=== PATIENT | male | born 1965 | race Caucasian/White ===

== ENCOUNTER 2021-01-03 14:43 | Inpatient (IN) | payer MEDICARE ==
[~2021-01-03] VITALS: Ht 190.5 cm; Wt 125.9 kg
[~2021-01-03 14:43] MED LIST: ALBU1.25 IH; ALBU2.5V8 IH; ALBU2.5V8 INH; ALBU8.5H6 IH; ASPI325T8 PO; Albuterol Sulfate NEB; CETI10TA74 PO; Erythromycin Base PO; FLUT1DIS5 IH; GLIM4TAB8 PO; LISI-517 PO; METF500T25 PO; PANT40TA77 PO; POTA10TA12 PO; PRAV40TA2 PO; PRED20TA PO; TIOT18CA IH; TORS20TA2 PO
[2021-01-03 15:14] LABS: BASO % 1 % (0-3); EOS # 0.1 x10^3/uL (0.0-0.7); EOS % 1 % (0-3); HEMATOCRIT 52.4 % (39.0-53.0); LYMPH # 1.3 x10^3/uL (1.0-4.8); LYMPH % 18 % (24-48); MEAN CORPUSCULAR HEMOGLOBIN 31 pg (25-35); MEAN CORPUSCULAR HGB CONC 32 g/dL (31-37); MEAN CORPUSCULAR VOLUME 96 fL (79-100); MONO # 0.7 x10^3/uL (0.0-1.1); MONO % 9 % (0-9); NEUT # 5.3 x10^3/uL (1.8-7.7); NEUT % 72 % (31-73); PLATELET COUNT 207 x10^3/uL (140-400); RED BLOOD COUNT 5.49 x10^6/uL (4.30-5.70); RED CELL DISTRIBUTION WIDTH 15.4 % (11.5-14.5); WHITE BLOOD COUNT 7.4 x10^3/uL (4.0-11.0)
--- NOTE | 2021-01-03 15:14 | PHYS DOC ---
Past Medical History Past Medical History: CHF, COPD, Diabetes-Type II Additional Past Medical Histor: obesity Past Surgical History: Cholecystectomy, Other Additional Past Surgical Histo: vasectomy Smoking Status: Current Every Day Smoker Alcohol Use: None Drug Use: None General Adult EDM: Chief Complaint: SHORTNESS OF BREATH HPI: HPI: 55 year old male with pmh of COPD and CHF presents with reports of progressive dyspnea x 2 months. Reports worse over the last few days. Reports he has had to increase his supplemental O2 requirement from 6L NC to 8L NC. Reports he also has noticed an increase in his abdominal girth. Denies N/V/D. Reports chronic cough. Denies fever/chills. Denies trauma. Denies known sick contacts or known exposure to COVID-19. Review of Systems: Review of Systems: Constitutional: Denies fever or chills Eyes: Denies redness or eye pain HENT: Denies nasal congestion or sore throat Respiratory: Reports cough and shortness of breath Cardiovascular: Denies chest pain or palpitations GI: Reports abdominal pain; denies nausea or vomiting : Denies dysuria or hematuria Musculoskeletal: Denies back pain or joint pain Integument: Denies rash or skin lesions Neurologic: Denies headache, focal weakness or sensory changes Complete systems were reviewed and found to be within normal limits, except as documented in this note. Allergies: Allergies: Allergies Coded Allergies Type Severity Reaction Last Updated Verified No Known Drug Allergies 02/15/15 No Physical Exam: PE: Constitutional: Well developed, obese, no acute distress, non-toxic appearance HENT: Normocephalic, atraumatic Eyes: Conjunctiva normal, no discharge Neck: Normal range of motion, no tenderness, supple Lungs & Thorax: Moderate respiratory distress, equal chest rise and fall, diminished at bases Abdomen: Soft, no tenderness, obese, moderate distention Skin: Warm, dry, no erythema, no rash Back: No tenderness, no CVA tenderness Extremities: No tenderness, ROM intact, no edema Neurologic: Alert and oriented X 3, no focal deficits noted Psychologic: Affect normal, judgment normal EKG: EKG: @1505 Sinus tachycardia with baseline artifact at 117bpm, NO ST elevation, QRS 104ms, QT/QTc 298/420ms Radiology/Procedures: Radiology/Procedures: PROCEDURE: CT ANGIO CHEST W ABD PEL W/ CTA CHEST_ABDOMEN_AND PELVIS Clinical Indication: Dyspnea, hypoxia, pain COMPARISON: CTA chest 06/14/2017 TECHNIQUE: Multiple contiguous axial images were obtained throughout the chest, abdomen, and pelvis with the use of IV contrast. Axial images were reformatted into coronal and sagittal planes. 100 mL Omnipaque 350 was administered. One or more of the following dose reduction techniques were utilized: Automated exposure control (AEC), Adjustment of mA and/or kV according to patient size, Use of iterative reconstruction technique such as ASiR, CT scan done according to ALARA and image gently/image wisely. Findings: The thyroid is symmetric. Mediastinal and hilar lymphadenopathy has mildly increased from 2017, for example left para-aortic lymph node measuring 1.6 cm short axis previously measured 1.2 cm (series 4 image 52) and left hilar lymph node measuring 1.6 cm previously measured 1.3 cm (image 80). The thoracic aorta diameter is normal. No evidence of pulmonary thromboembolic disease Dilated pulmonary trunk measures 40 mm, which can be seen with pulmonary hypertension. The cardiac size is normal. Coronary artery atherosclerotic disease. Aortic valve leaflet calcification. There is no pericardial effusion. The central airways are patent. Bilateral ill-defined ground glass opacities, similar to the prior exam. No pleural effusion is observed. There is no pneumothorax. The liver, spleen, pancreas, and adrenal glands are unremarkable. Cholecystec venice. No hydronephrosis or opaque urinary calculi. There is no significant mesenteric or retroperitoneal adenopathy identified. Visualized portions of the bowel are grossly unremarkable. Moderate aortoiliac atherosclerotic disease Bladder is unremarkable. There is no significant pelvic ascites. No significant iliac or inguinal adenopathy is identified. Degenerative changes of the spine IMPRESSION: 1. No evidence of pulmonary thromboembolic disease. 2. Bilateral ill-defined groundglass opacities, which could relate to pulmonary edema or infection in the acute setting. Of note, lung parenchyma had a similar appearance on exam of 2017 and other considerations such as small airways disease or pulmonary hypertension could have a similar appearance. 3. Dilated pulmonary trunk, which can be seen with pulmonary hypertension. 4. Mediastinal and hilar lymphadenopathy has mildly increased since exam of 2017. Electronically signed by: Grant Saunders MD (01/03/2021 5:06 PM) [facility] Course & Med Decision Making: Course & Med Decision Making Pertinent Labs and Imaging studies reviewed. (See chart for details) Patient with pmh of CHF and COPD presents with history of progressive SOA and increased supplemental O2 from baseline requirement. Patient reports he typically wears 6L NC but has increased to 8L NC. Patient hypoxic with increased work of breathing. Increased high flow O2 provided. EKG tachycardic. Labs obtained and posted to chart. Troponin WNL. BNP stable. WBC and lactic acid stable. D-dimer elevated. Patient reports some abdominal distention and discomfort. CTA chest and CT abd/pelvis obtained with chronic lung changes noted. ABG with findings of increased CO2 retention. BIPAP therefore placed. Empiric antibiotic provided. Cannot exclude COVID. COVID testing pending. Patient requiring admission for further evaluation and treatment. Discussed with Dr. Malloy (hospitalist) who is in agreement with admission. Discussed findings and plan with patient, who acknowledges understanding and agreement. COVID-19 CRITERIA: The patient was evaluated during the global COVID-19 pandemic, and that diagnosis was suspected/considered upon their initial presentation. Their evaluation, treatment and testing was consistent with current guidelines for patients who present with complaints or symptoms that may be related to COVID-19. Draghaja Disclaimer: Draghaja Disclaimer: This electronic medical record was generated, in whole or in part, using a voice recognition dictation system. Departure Departure Impression: Primary Impression: Acute on chronic respiratory failure Qualified Codes: J96.21 - Acute and chronic respiratory failure with hypoxia Additional Impressions: COPD exacerbation Suspected 2019 novel coronavirus infection Disposition: 09 ADMITTED INPT THIS HOSP Admitting Physician: GISELLA Saldana) Condition: GUARDED Referrals: Génesis CESAR MD (PCP) COVID-19 Assessment: COVID-19 Patient Risks: Age 65 or older: No Sign of co-morbidity: Yes Exp to person + for COVID: No Exp to PUI: No Travel from affected area: No Lower respiratory symptoms: Yes Fever: No Other: Yes PPE Use: Full PPE with N95 mask or PAPR: Yes Critical Care Time Critical care time was 30 minutes which includes time at bedside, spent in discussion of patient's care with specialists and/or family members, with interpretation of laboratory and/or radiological studies and is exclusive of procedures. AGUSTO RIVERO DO Jan 03, 2021 15:14
[2021-01-03 15:31] LABS: CALCIUM 8.8 mg/dL (8.5-10.1); CREATININE 0.8 mg/dL (0.7-1.3); GFR 100.7; POTASSIUM 4.9 mmol/L (3.5-5.1)
[2021-01-03 15:44] LABS: ALBUMIN 3.3 g/dL (3.4-5.0); MAGNESIUM 2.1 mg/dL (1.8-2.4); TOTAL BILIRUBIN 0.9 mg/dL (0.2-1.0); TOTAL PROTEIN 6.7 g/dL (6.4-8.2)
[2021-01-03 15:46] LABS: CREATINE KINASE 74 U/L (39-308)
[2021-01-03 16:29] LABS: BASE EXCESS COOX 7 mmol/L (-3-3); HCO3 COOX 36 mmol/L (21-28); METHEMOGLOBIN 0.3 % (0.0-1.9); OXYHEMOGLOBIN 90.3 %; PO2 COOX 90 mmHg (75-108); SAT O2 COOX 96 % (92-99)
[2021-01-03] MEDS ORDERED: IOHEXOL 300 MG/ML 100ML VIAL. IV ONE (16:30)
[2021-01-03] MEDS ORDERED: IOHEXOL 350 MG/ML 100 ML VIAL. ONE (16:30)
[2021-01-03] MEDS ORDERED: CONTRAST GIVEN. MC PRN (16:30)
[2021-01-03 16:31] LABS: PCO2 COOX 68 mmHg (35-46)
[2021-01-03] MEDS ORDERED: DEXAMETHASONE SOD PHOS 4 MG/ML VIAL IVP ONE (16:45)
--- NOTE | 2021-01-03 17:09 | RAD ---
CTA CHEST_ABDOMEN_AND PELVIS Clinical Indication: Dyspnea, hypoxia, pain COMPARISON: CTA chest 06/14/2017 TECHNIQUE: Multiple contiguous axial images were obtained throughout the chest, abdomen, and pelvis with the use of IV contrast. Axial images were reformatted into coronal and sagittal planes. 100 mL Omnipaque 350 was administered. One or more of the following dose reduction techniques were utilized: Automated ex posure control (AEC), Adjustment of mA and/or kV according to patient size, Use of iterative reconstr uction technique such as ASiR, CT scan done according to ALARA and image gently/image wisely. Findings: The thyroid is symmetric. Mediastinal and hilar lymphadenopathy has mildly increased from 2017, for e xample left para-aortic lymph node measuring 1.6 cm short axis previously measured 1.2 cm (series 4 i mage 52) and left hilar lymph node measuring 1.6 cm previously measured 1.3 cm (image 80). The thoracic aorta diameter is normal. No evidence of pulmonary thromboembolic disease Dilated pulmon mohinder trunk measures 40 mm, which can be seen with pulmonary hypertension. The cardiac size is normal. Coronary artery atherosclerotic disease. Aortic valve leaflet calcification. There is no pericardial effusion. The central airways are patent. Bilateral ill-defined ground glass opacities, similar to the prior exam. No pleural effusion is obser [place]. There is no pneumothorax. The liver, spleen, pancreas, and adrenal glands are unremarkable. Cholecystectomy. No hydronephrosis or opaque urinary calculi. There is no significant mesenteric or retroperitoneal adenopathy identif ied. Visualized portions of the bowel are grossly unremarkable. Moderate aortoiliac atherosclerotic disease Bladder is unremarkable. There is no significant pelvic ascites. No significant iliac or inguinal a denopathy is identified. Degenerative changes of the spine IMPRESSION: 1. No evidence of pulmonary thromboembolic disease. 2. Bilateral ill-defined groundglass opacities, which could relate to pulmonary edema or infection in the acute setting. Of note, lung parenchyma had a similar appearance on exam of 2017 and other consi derations such as small airways disease or pulmonary hypertension could have a similar appearance. 3. Dilated pulmonary trunk, which can be seen with pulmonary hypertension. 4. Mediastinal and hilar lymphadenopathy has mildly increased since exam of 2017. Electronically signed by: Grant Saunders MD (01/03/2021 5:06 PM) [facility]
[2021-01-03 17:10] LABS: INFLUENZA A PATIENT NEGATIVE (NEGATIVE); INFLUENZA B PATIENT NEGATIVE (NEGATIVE)
[2021-01-03] MEDS ORDERED: CALCIUM CARBONATE 500 MG TAB.CHEW PO PRN (17:30)
[2021-01-03] MEDS ORDERED: MORPHINE SULFATE 2 MG/ML VIAL. IV PRN (17:30)
[2021-01-03] MEDS ORDERED: PROCHLORPERAZINE 25 MG SUPP.RECT. PR PRN (17:30)
[2021-01-03] MEDS ORDERED: LACTULOSE 20 GM/30 ML SOLUTION. PO PRN (17:30)
[2021-01-03] MEDS ORDERED: MAG HYDROX/ALUMINUM HYD/SIMETH 30 ML ORAL.SUSP PO PRN (17:30)
[2021-01-03] MEDS ORDERED: ACETAMINOPHEN 325 MG TABLET. PO PRN (17:30)
[2021-01-03] MEDS ORDERED: AZITHRMYCN 500MG IVPB FOR OMNI 250 ML IV ONE (17:30)
[2021-01-03] MEDS ORDERED: ONDANSETRON PF 4 MG/2 ML VIAL. IVP PRN (17:30)
[2021-01-03] MEDS ORDERED: HYDROcodone/APAP 5/325MG 1 TAB TABLET PO PRN (17:30)
[2021-01-03] MEDS ORDERED: NON FORMULARY ITEM ([Albuterol Sulfate] 2.5 MG) NEB PRN (17:30)
[2021-01-03] MEDS ORDERED: BISACODYL 10 MG SUPP.RECT. PR PRN (17:30)
[2021-01-03] MEDS ORDERED: cefTRIAXone IV Push 1 GM VIAL. IVP ONE (17:30)
[2021-01-03] MEDS ORDERED: ELECTROLYTE (NON-ICU) PROTOCOL. MC PRN (17:30)
[2021-01-03] MEDS ORDERED: ZOLPIDEM 5 MG TABLET. PO PRN (17:30)
[2021-01-03] MEDS ORDERED: DEXTROSE 50% 25 GM / 50ML DISP.SYRIN. IV PRN ×2 (17:30→19:00)
[2021-01-03] MEDS ORDERED: ALBUTEROL SULFATE 2.5 MG/3 ML NEBU. INH PRN (17:30)
[2021-01-03] MEDS ORDERED: MAGNESIUM HYDROXIDE 2,400 MG/30 ML ORAL.SUSP. PO PRN (17:30)
[2021-01-03] MEDS ORDERED: ONDANSETRON PF 4 MG/2 ML VIAL. IV PRN (17:30)
[2021-01-03] MEDS ORDERED: ALBUTEROL SULFATE 2.5 MG/3 ML NEBU. NEB PRN (18:00)
[2021-01-03] MEDS: IPRATRPIUM/ALBUTEROL 0.5/2.5MG 3 ML NEBU. NEB SCH (18:32)
[2021-01-03] MEDS: BUDESONIDE 0.5 MG/2 ML NEBU. NEB SCH (18:32)
--- NOTE | 2021-01-03 18:49 | PDOC1 ---
History and Physical Date of Admission Date of Admission 01/03/2021 Identification/Chief Complaint Chief Complaint I am short of breath Source Source: Chart review, Patient History of Present Illness History of Present Illness Patient is a 55-year-old gentleman with past medical history of hypertension diabetes mellitus type 2 COPD and chronic congestive heart failure with diastolic dysfunction who was in his usual state of health until approximately 2 to 3 days prior to his admission when he started noticing dyspnea that started upon exertion and has subsequently progressed to dyspnea at rest. The patient denies at the present time chest pain no palpitations the patient denies fever chills diaphoresis no sick contacts no coughing sneezing headache no generalized malaise reported. Patient denies any contact with COVID-19 infected people. He has not had changes to his medications no increase salt in his diet. The other other complaint was bloating on his lower abdomen and he suffers from chronic lower extremity edema for which he uses compression stockings. He denies not adherence to his medications. He came to the emergency department due to the progressive nature of his dyspnea. He was evaluated in the emergency department and found to have an elevated BNP and a CAT scan with some diffuse infiltrates. Patient is being admitted for further evaluation and treatment. At the time of my evaluation patient is using accessory muscles he is able to speak despite the BiPAP feels a little better c ompared to admission but still quite short of breath. Plan of care has been explained in detail all of his concerns were addressed to the best of my ability Past Medical History Cardiovascular: CHF, HTN Pulmonary: COPD CENTRAL NERVOUS SYSTEM: Periperal neuropathy GI: GERD Heme/Onc: No pertinent hx Hepatobiliary: No pertinent hx Psych: No pertinent hx Rheumatologic: No pertinent hx Infectious disease: No pertinent hx Renal/: No pertinent hx Endocrine: Diabetes Past Surgical History Past Surgical History: Cholecystectomy, Other Family History Family History: Cancer Social History Smoke: No ALCOHOL: none Drugs: None Current Problem List Problem List Problems Medical Problems: (1) COPD exacerbation Status: Acute (2) Suspected 2019 novel coronavirus infection Status: Acute Current Medications Current Medications Current Medications Medications (Trade) Dose Ordered Sig/Theresa Start Time Stop Time Status Last Admin Dose Admin Acetaminophen (Tylenol) 650 mg PRN Q6HRS PRN 01/03/21 17:30 Acetaminophen/ Hydrocodone Bitart (Lortab 5/325) 1 tab PRN Q4HRS PRN 01/03/21 17:30 Al Hydroxide/Mg Hydroxide (Mylanta Plus Xs) 30 ml PRN Q3HRS PRN 01/03/21 17:30 Albuterol Sulfate (Ventolin Neb Soln) 2.5 mg PRN Q2HR PRN 01/03/21 18:00 Albuterol/ Ipratropium (Duoneb) 3 ml RTQID 01/03/21 20:00 Aspirin (Jack Aspirin) 325 mg DAILY 01/04/21 09:00 Azithromycin 250 ml @ 250 mls/hr 1X ONCE 01/03/21 17:30 01/03/21 18:29 DC 01/03/21 17:50 250 MLS/HR Bisacodyl (Dulcolax Supp) 10 mg PRN DAILY PRN 01/03/21 17:30 Budesonide (Pulmicort) 0.5 mg RTBID 01/03/21 20:00 Calcium Carbonate/ Glycine (Tums) 500 mg PRN Q3HRS PRN 01/03/21 17:30 Ceftriaxone Sodium (Rocephin) 1 gm 1X ONCE 01/03/21 17:30 01/03/21 17:31 DC 01/03/21 17:51 1 GM Dexamethasone Sodium Phosphate (Decadron) 10 mg 1X ONCE 01/03/21 16:45 01/03/21 16:46 DC 01/03/21 17:12 10 MG Dextrose (Dextrose 50%-Water Syringe) 12.5 gm PRN Q15MIN PRN 01/03/21 17:30 Enoxaparin Sodium (Lovenox 40mg Syringe) 40 mg Q24H 01/03/21 18:00 Info (CONTRAST GIVEN -- Rx MONITORING) 1 each PRN DAILY PRN 01/03/21 16:30 01/05/21 16:29 Info (Non-Icu Electrolyte Protocol) 1 ea PRN DAILY PRN 01/03/21 17:30 Insulin Human Lispro (HumaLOG) 0-5 UNITS TIDWMEALS 01/04/21 08:00 Iohexol (Omnipaque 300 Mg/ml) 75 ml 1X ONCE 01/03/21 16:30 01/03/21 16:31 Cancel Iohexol (Omnipaque 350 Mg/ml) 100 ml STK-MED ONCE 01/03/21 16:30 01/03/21 16:31 DC Lactulose (Lactulose) 20 gm PRN Q12HR PRN 01/03/21 17:30 Lisinopril (Prinivil) 5 mg DAILY 01/04/21 09:00 Magnesium Hydroxide (Milk Of Magnesia) 2,400 mg PRN Q12HR PRN 01/03/21 17:30 Morphine Sulfate (Morphine Sulfate) 1 mg PRN Q1HR PRN 01/03/21 17:30 Non-Formulary Medication (Fluticasone/ Salmeterol (Advair 500-50 Diskus)) 1 puff BID 01/03/21 21:00 UNV Non-Formulary Medication (Tiotropium Corona (Spiriva)) 18 mcg DAILY 01/04/21 09:00 UNV Non-Formulary Medication ([Albuterol Sulfate] ) 2.5 mg PRN Q2HR PRN 01/03/21 17:30 UNV Ondansetron HCl (Zofran) 4 mg PRN Q6HRS PRN 01/03/21 17:30 Pantoprazole Sodium (Protonix) 40 mg DAILYAC 01/04/21 07:30 Potassium Chloride (Klor-Con) 10 meq BIDWMEALS 01/03/21 18:00 Prochlorperazine (Compazine) 25 mg PRN Q12HR PRN 01/03/21 17:30 Senna/Docusate Sodium (Senna Plus) 1 tab BID 01/03/21 21:00 Torsemide (Demadex) 20 mg BID 01/03/21 21:00 Zolpidem Tartrate (Ambien) 5 mg PRN QHS PRN 01/03/21 17:30 Allergies Allergies Allergies Coded Allergies Type Severity Reaction Last Updated Verified No Known Drug Allergies 02/15/15 No ROS Review of System CONSTITUTIONAL: No fever or chills EYES: No recent changes SKIN: No rash or itching CARDIOVASCULAR: No chest pain, syncope, palpitations, or edema RESPIRATORY: No SOB or cough GASTROINTESTINAL: No nausea, vomiting or abdominal pain NEUROLOGICAL: No headaches or weakness ENDOCRINE: No cold or heat intolerance GENITOURINARY: No urgency or frequency of urination MUSCULOSKELETAL: No back pain or joint pain LYMPHATICS: No enlarged lymph nodes PSYCHIATRIC: No anxiety or depression Physical Exam Physical Exam Gen.: well-developed well-nourished in mild respiratory distress Head: Normal shape atraumatic Eyes: Pupils equal reactive to light and accommodation, normal conjunctivae and lids Ears: Normal shape Nose: Normal shape no trauma Mouth: No exudates of the back of throat no thrush no lesions Neck: Supple no JVD no carotid bruit or lymphadenopathy no thyromegaly Chest: Lungs clear to auscultation with good inspiratory effort no crackles rales or rhonchi Cardiovascular: S1-S2 regular rhythm no murmurs gallops or rubs Abdomen: Bowel sounds present soft nontender no hepatosplenomegaly appreciated sign Extremities: No clubbing no cyanosis 3+ edema peripheral pulses palpated bilaterally Neurological: Alert awake oriented in person time place and situation, cranial n erves II through XII intact, no motor or sensory deficits appreciated Psych: Appropriate mood, cooperative Vitals Vitals Vital Signs Date Time Temp Pulse Resp B/P (MAP) Pulse Ox O2 Delivery O2 Flow Rate FiO2 01/03/21 17:54 104 20 120/72 (88) 94 BiPAP/CPAP 01/03/21 16:26 8.0 01/03/21 14:43 98.0 98.0 Labs Labs Laboratory Tests Test 01/03/21 15:03 01/03/21 16:15 01/03/21 16:28 White Blood Count 7.4 x10^3/uL (4.0-11.0) Red Blood Count 5.49 x10^6/uL (4.30-5.70) Hemoglobin 17.0 g/dL (13.0-17.5) Hematocrit 52.4 % (39.0-53.0) Mean Corpuscular Volume 96 fL (79-100) Mean Corpuscular Hemoglobin 31 pg (25-35) Mean Corpuscular Hemoglobin Concent 32 g/dL (31-37) Red Cell Distribution Width 15.4 % (11.5-14.5) Platelet Count 207 x10^3/uL (140-400) Neutrophils (%) (Auto) 72 % (31-73) Lymphocytes (%) (Auto) 18 % (24-48) Monocytes (%) (Auto) 9 % (0-9) Eosinophils (%) (Auto) 1 % (0-3) Basophils (%) (Auto) 1 % (0-3) Neutrophils # (Auto) 5.3 x10^3/uL (1.8-7.7) Lymphocytes # (Auto) 1.3 x10^3/uL (1.0-4.8) Monocytes # (Auto) 0.7 x10^3/uL (0.0-1.1) Eosinophils # (Auto) 0.1 x10^3/uL (0.0-0.7) Basophils # (Auto) 0.0 x10^3/uL (0.0-0.2) D-Dimer (Nai) 1.01 ug/mlFEU (0.00-0.50) Sodium Level 140 mmol/L (136-145) Potassium Level 4.9 mmol/L (3.5-5.1) Chloride Level 99 mmol/L (98-107) Carbon Dioxide Level 37 mmol/L (21-32) Anion Gap 4 (6-14) Blood Urea Nitrogen 15 mg/dL (8-26) Creatinine 0.8 mg/dL (0.7-1.3) Estimated GFR (Cockcroft-Gault) 100.7 BUN/Creatinine Ratio 19 (6-20) Glucose Level 144 mg/dL (70-99) Lactic Acid Level 1.0 mmol/L (0.4-2.0) Calcium Level 8.8 mg/dL (8.5-10.1) Magnesium Level 2.1 mg/dL (1.8-2.4) Total Bilirubin 0.9 mg/dL (0.2-1.0) Aspartate Amino Transf (AST/SGOT) 15 U/L (15-37) Alanine Aminotransferase (ALT/SGPT) 17 U/L (16-63) Alkaline Phosphatase 63 U/L (46-116) Creatine Kinase 74 U/L (39-308) Creatine Kinase MB (Mass) 2.8 ng/mL (0.0-3.6) Creatine Kinase MB Relative Index % (0-4) Troponin I Quantitative < 0.017 ng/mL (0.000-0.055) HY-Xnz-Y-Type Natriuretic Peptide 1118 pg/mL (0-124) Total Protein 6.7 g/dL (6.4-8.2) Albumin 3.3 g/dL (3.4-5.0) Albumin/Globulin Ratio 1.0 (1.0-1.7) Influenza Type A Antigen Negative (NEGATIVE) Influenza Type B Antigen Negative (NEGATIVE) O2 Saturation 96 % (92-99) Arterial Blood pH 7.34 (7.35-7.45) Arterial Blood pCO2 at Patient Temp 68 mmHg (35-46) Arterial Blood pO2 at Patient Temp 90 mmHg (75-108) Arterial Blood HCO3 36 mmol/L (21-28) Arterial Blood Base Excess 7 mmol/L (-3-3) Oxyhemoglobin 90.3 % Methemoglobin 0.3 % (0.0-1.9) Carbon Monoxide, Quantitative 5.9 % (0.0-1.9) FiO2 52/ 8l hi Laboratory Tests Test 01/03/21 15:03 01/03/21 16:15 01/03/21 16:28 White Blood Count 7.4 x10^3/uL (4.0-11.0) Red Blood Count 5.49 x10^6/uL (4.30-5.70) Hemoglobin 17.0 g/dL (13.0-17.5) Hematocrit 52.4 % (39.0-53.0) Mean Corpuscular Volume 96 fL (79-100) Mean Corpuscular Hemoglobin 31 pg (25-35) Mean Corpuscular Hemoglobin Concent 32 g/dL (31-37) Red Cell Distribution Width 15.4 % (11.5-14.5) Platelet Count 207 x10^3/uL (140-400) Neutrophils (%) (Auto) 72 % (31-73) Lymphocytes (%) (Auto) 18 % (24-48) Monocytes (%) (Auto) 9 % (0-9) Eosinophils (%) (Auto) 1 % (0-3) Basophils (%) (Auto) 1 % (0-3) Neutrophils # (Auto) 5.3 x10^3/uL (1.8-7.7) Lymphocytes # (Auto) 1.3 x10^3/uL (1.0-4.8) Monocytes # (Auto) 0.7 x10^3/uL (0.0-1.1) Eosinophils # (Auto) 0.1 x10^3/uL (0.0-0.7) Basophils # (Auto) 0.0 x10^3/uL (0.0-0.2) D-Dimer (Nai) 1.01 ug/mlFEU (0.00-0.50) Sodium Level 140 mmol/L (136-145) Potassium Level 4.9 mmol/L (3.5-5.1) Chloride Level 99 mmol/L (98-107) Carbon Dioxide Level 37 mmol/L (21-32) Anion Gap 4 (6-14) Blood Urea Nitrogen 15 mg/dL (8-26) Creatinine 0.8 mg/dL (0.7-1.3) Estimated GFR (Cockcroft-Gault) 100.7 BUN/Creatinine Ratio 19 (6-20) Glucose Level 144 mg/dL (70-99) Lactic Acid Level 1.0 mmol/L (0.4-2.0) Calcium Level 8.8 mg/dL (8.5-10.1) Magnesium Level 2.1 mg/dL (1.8-2.4) Total Bilirubin 0.9 mg/dL (0.2-1.0) Aspartate Amino Transf (AST/SGOT) 15 U/L (15-37) Alanine Aminotransferase (ALT/SGPT) 17 U/L (16-63) Alkaline Phosphatase 63 U/L (46-116) Creatine Kinase 74 U/L (39-308) Creatine Kinase MB (Mass) 2.8 ng/mL (0.0-3.6) Creatine Kinase MB Relative Index % (0-4) Troponin I Quantitative < 0.017 ng/mL (0.000-0.055) PU-Rbx-O-Type Natriuretic Peptide 1118 pg/mL (0-124) Total Protein 6.7 g/dL (6.4-8.2) Albumin 3.3 g/dL (3.4-5.0) Albumin/Globulin Ratio 1.0 (1.0-1.7) Influenza Type A Antigen Negative (NEGATIVE) Influenza Type B Antigen Negative (NEGATIVE) O2 Saturation 96 % (92-99) Arterial Blood pH 7.34 (7.35-7.45) Arterial Blood pCO2 at Patient Temp 68 mmHg (35-46) Arterial Blood pO2 at Patient Temp 90 mmHg (75-108) Arterial Blood HCO3 36 mmol/L (21-28) Arterial Blood Base Excess 7 mmol/L (-3-3) Oxyhemoglobin 90.3 % Methemoglobin 0.3 % (0.0-1.9) Carbon Monoxide, Quantitative 5.9 % (0.0-1.9) FiO2 52/ 8l nc Images Images IMAGING REPORT Signed PATIENT: ELIUD RICCI ACCOUNT: [id number] : 1965 LOCATION: ER AGE: 55 SEX: M EXAM STATUS: REG ER ORD. PHYSICIAN: AGUSTO RIVERO DO REASON: SOA, hypoxia, elevated d-dimer, eval for PE PROCEDURE: CT ANGIO CHEST W ABD PEL W/ CTA CHEST_ABDOMEN_AND PELVIS Clinical Indication: Dyspnea, hypoxia, pain COMPARISON: CTA chest 06/14/2017 TECHNIQUE: Multiple contiguous axial images were obtained throughout the chest, abdomen, and pelvis with the use of IV contrast. Axial images were reformatted into coronal and sagittal planes. 100 mL Omnipaque 350 was administered. One or more of the following dose reduction techniques were utilized: Automated exposure control (AEC), Adjustment of mA and/or kV according to patient size, Use of iterative reconstruction technique such as ASiR, CT scan done according to ALARA and image gently/image wisely. Findings: The thyroid is symmetric. Mediastinal and hilar lymphadenopathy has mildly increased from 2017, for example left para-aortic lymph node measuring 1.6 cm short axis previously measured 1.2 cm (series 4 image 52) and left hilar lymph node measuring 1.6 cm previously measured 1.3 cm (image 80). The thoracic aorta diameter is normal. No evidence of pulmonary thromboembolic disease Dilated pulmonary trunk measures 40 mm, which can be seen with pulmonary hypertension. The cardiac size is normal. Coronary artery atherosclerotic disease. Aortic valve leaflet calcification. There is no pericardial effusion. The central airways are patent. Bilateral ill-defined ground glass opacities, similar to the prior exam. No pleural effusion is observed. There is no pneumothorax. The liver, spleen, pancreas, and adrenal glands are unremarkable. Cholecystectomy. No hydronephrosis or opaque urinary calculi. There is no significant mesenteric or retroperitoneal adenopathy identified. Visualized portions of the bowel are grossly unremarkable. Moderate aortoiliac atherosclerotic disease Bladder is unremarkable. There is no significant pelvic ascites. No significant iliac or inguinal adenopathy is identified. Degenerative changes of the spine IMPRESSION: 1. No evidence of pulmonary thromboembolic disease. 2. Bilateral ill-defined groundglass opacities, which could relate to pulmonary edema or infection in the acute setting. Of note, lung parenchyma had a similar appearance on exam of 2017 and other considerations such as small airways disease or pulmonary hypertension could have a similar appearance. 3. Dilated pulmonary trunk, which can be seen with pulmonary hypertension. 4. Mediastinal and hilar lymphadenopathy has mildly increased since exam of 2017. Electronically signed by: Grant Saunders MD (01/03/2021 5:06 PM) [facility] VTE Prophylaxis Ordered VTE Prophylaxis Devices: Yes VTE Pharmacological Prophylaxi: No Assessment/Plan Assessment/Plan Acute COPD exacerbation secondary to probably pneumonic process will send Legionella antigen cover with doxycycline for atypicals History of chronic congestive heart failure diastolic dysfunction Essential hypertension Diabetes mellitus type 2 Overweight with a BMI of 28 Elevated BNP most likely secondary to fluid overload Plan Further recommendations based on clinical We will start him on diuretics Solu-Medrol Nebulization therapy Resume home medications DVT prophylaxis Lovenox Reassess in the a.m. Justifications for Admission Other Justification Acute hypoxemic respiratory failure KAMILA FLORES MD Jan 03, 2021 18:49
[2021-01-03 19:00] VITALS: BP 131/80
[2021-01-03] MEDS: SENNOSIDES/DOCUSATE 8.6/50MG TABLET. PO SCH ×2 (20:29→20:53)
[2021-01-03] MEDS: ENOXAPARIN 40 MG/0.4 ML SYRINGE. SQ SCH (20:30)
[2021-01-03] MEDS: methylPREDNISolone SOD SUCC PF 125 MG/2 ML VIAL. IV SCH (20:30)
[2021-01-03] MEDS: FUROSEMIDE 40 MG/4 ML ORAL SOLUTION. PEG SCH (20:30)
[2021-01-03] MEDS: TORSEMIDE 20 MG TABLET. PO SCH ×2 (20:30→20:53)
[2021-01-03] MEDS: INSULIN GLARGINE SYRINGE. SQ SCH ×2 (20:31→20:54)
[2021-01-03] MEDS: POTASSIUM CHLORIDE 10 MEQ TABLET.ER. PO SCH ×2 (20:31→20:53)
[2021-01-03] MEDS ORDERED: NON FORMULARY ITEM (Fluticasone/Salmeterol (Advair 500-50 Diskus) 1 PUFF) IH SCH (21:00)
[2021-01-03 22:41] LABS: LACTATE DEHYDROGENASE 137 U/L (85-227)
[2021-01-03] MEDS ORDERED: EMPA1TAB PO (22:58)
[2021-01-03] MEDS ORDERED: SENN8.6T11 PO (22:58)
[2021-01-03 23:00] VITALS: BP 141/72
[2021-01-03 23:56] LABS: BILIRUBIN,URINE NEGATIVE (NEG); CLARITY,URINE CLEAR; COLOR,URINE YELLOW; NITRITE,URINE NEGATIVE (NEG); PROTEIN,URINE NEGATIVE (NEG-TRACE); UROBILINOGEN,URINE 0.2 mg/dL (0.2 mg/dL)
[2021-01-04 00:02] LABS: BACTERIA,URINE 0 /HPF (0-FEW); RBC,URINE 0 /HPF (0-2); WBC,URINE 0 /HPF (0-4)
[2021-01-04 03:22] VITALS: BP 137/82
[2021-01-04 04:35] LABS: BASO % 0 % (0-3); EOS % 0 % (0-3); HEMATOCRIT 52.6 % (39.0-53.0); HEMOGLOBIN 17.1 g/dL (13.0-17.5); LYMPH # 0.4 x10^3/uL (1.0-4.8); LYMPH % 11 % (24-48); MEAN CORPUSCULAR HEMOGLOBIN 31 pg (25-35); MEAN CORPUSCULAR HGB CONC 33 g/dL (31-37); MEAN CORPUSCULAR VOLUME 96 fL (79-100); MONO % 1 % (0-9); NEUT # 2.8 x10^3/uL (1.8-7.7); NEUT % 88 % (31-73); PLATELET COUNT 183 x10^3/uL (140-400); RED BLOOD COUNT 5.47 x10^6/uL (4.30-5.70); RED CELL DISTRIBUTION WIDTH 15.6 % (11.5-14.5); WHITE BLOOD COUNT 3.2 x10^3/uL (4.0-11.0)
[2021-01-04 04:48] LABS: CREATININE 0.9 mg/dL (0.7-1.3); GFR 87.9; POTASSIUM 5.2 mmol/L (3.5-5.1)
[2021-01-04 05:13] LABS: % BANDS 4 % (0-9); % LYMPHS 14 % (24-48); % MONOS 1 % (0-10); % SEGS 81 % (35-66); PLT ESTIMATE ADEQUATE (ADEQUATE)
[2021-01-04] MEDS: methylPREDNISolone SOD SUCC PF 125 MG/2 ML VIAL. IV SCH (05:36)
[2021-01-04 07:00] VITALS: BP 121/72
[2021-01-04] MEDS: POTASSIUM CHLORIDE 10 MEQ TABLET.ER. PO SCH ×2 (07:12→16:34)
[2021-01-04] MEDS ORDERED: INSULIN LISPRO 300 UNITS/3 ML VIAL. SQ SCH (08:00)
[2021-01-04] MEDS: IPRATRPIUM/ALBUTEROL 0.5/2.5MG 3 ML NEBU. NEB SCH ×5 (08:00→20:12)
[2021-01-04] MEDS: INSULIN LISPRO 300 UNITS/3 ML VIAL. SQ SCH ×3 (08:00→16:37)
[2021-01-04] MEDS: BUDESONIDE 0.5 MG/2 ML NEBU. NEB SCH ×2 (08:00→20:12)
[2021-01-04] MEDS: ASPIRIN 325 MG TABLET PO SCH (08:33)
[2021-01-04] MEDS: PANTOPRAZOLE 40 MG TABLET.DR. PO SCH (08:33)
[2021-01-04] MEDS: AZITHROMYCIN 250 MG TABLET. PO SCH (08:37)
[2021-01-04] MEDS: TORSEMIDE 20 MG TABLET. PO SCH ×2 (08:37→20:50)
[2021-01-04] MEDS: SENNOSIDES/DOCUSATE 8.6/50MG TABLET. PO SCH ×2 (08:37→20:50)
[2021-01-04] MEDS: cefTRIAXone IV Push 1 GM VIAL. IVP SCH ×2 (08:39→16:34)
[2021-01-04] MEDS: FUROSEMIDE 40 MG/4 ML ORAL SOLUTION. PEG SCH ×2 (08:48→13:47)
[2021-01-04] MEDS ORDERED: LISINOPRIL 5 MG TABLET. PO SCH (09:00)
[2021-01-04] MEDS ORDERED: NON FORMULARY ITEM (Tiotropium Bromide (Spiriva) 18 MCG) IH SCH (09:00)
[2021-01-04] MEDS ORDERED: FLU VACC QS 2020-21(6MOS+)/PF 0.5 ML SYRINGE. VAX IM ONE (09:00)
[2021-01-04] MEDS ORDERED: DOXYCYCLINE HYCLATE 100 MG TABLET PO SCH (09:00)
--- NOTE | 2021-01-04 09:21 | PDOC ---
PROGRESS NOTES Date of Service: DATE: 01/04/21 TIME: 09:17 Chief Complaint Chief Complaint Acute COPD exacerbation secondary to probably pneumonic process will send Legionella antigen cover with doxycycline for atypicals History of chronic congestive heart failure diastolic dysfunction Essential hypertension Diabetes mellitus type 2 Overweight with a BMI of 28 Elevated BNP most likely secondary to fluid overload Plan Further recommendations based on clinical We will start him on diuretics Solu-Medrol Nebulization therapy Resume home medications DVT prophylaxis Lovenox Reassess in the a.m. History of Present Illness History of Present Illness History of Present Illness Patient is a 55-year-old gentleman with past medical history of hypertension diabetes mellitus type 2 COPD and chronic congestive heart failure with diastolic dysfunction who was in his usual state of health until approximately 2 to 3 days prior to his admission when he started noticing dyspnea that started upon exertion and has subsequently progressed to dyspnea at rest. The patient denies at the present time chest pain no palpitations the patient denies fever chills diaphoresis no sick contacts no coughing sneezing headache no generalized malaise reported. Patient denies any contact with COVID-19 infected people. He has not had changes to his medications no increase salt in his diet. The other other complaint was bloating on his lower abdomen and he suffers from chronic lower extremity edema for which he uses compression stockings. He denies not adherence to his medications. He came to the emergency department due to the progressive nature of his dyspnea. He was evaluated in the emergency department and found to have an elevated BNP and a CAT scan with some diffuse infiltrates. Patient is being admitted for further evaluation and treatment. At the time of my evaluation patient is using accessory muscles he is able to speak despite the BiPAP feels a little better compared to admission but still quite short of breath. Plan of care has been explained in detail all of his concerns were addressed to the best of my ability. 01/04: No acute events reported overnight, case discussed with nursing staff patient in no acute distress no complaints during my visit Vitals Vitals Vital Signs Date Time Temp Pulse Resp B/P (MAP) Pulse Ox O2 Delivery O2 Flow Rate FiO2 01/04/21 07:45 Nasal Cannula 8.0 01/04/21 03:22 96.7 96 16 137/82 (100) 95 96.7 Physical Exam Physical Exam Physical Exam Gen.: well-developed well-nourished in mild respiratory distress Head: Normal shape atraumatic Eyes: Pupils equal reactive to light and accommodation, normal conjunctivae and lids Ears: Normal shape Nose: Normal shape no trauma Mouth: No exudates of the back of throat no thrush no lesions Neck: Supple no JVD no carotid bruit or lymphadenopathy no thyromegaly Chest: Lungs clear to auscultation with good inspiratory effort no crackles rales or rhonchi Cardiovascular: S1-S2 regular rhythm no murmurs gallops or rubs Abdomen: Bowel sounds present soft nontender no hepatosplenomegaly appreciated sign Extremities: No clubbing no cyanosis 3+ edema peripheral pulses palpated bilaterally Neurological: Alert awake oriented in person time place and situation, cranial nerves II through XII intact, no motor or sensory deficits appreciated Psych: Appropriate mood, cooperative Lungs: Other (Distant breath sounds) Labs LABS Laboratory Tests Test 01/03/21 15:03 01/03/21 16:15 01/03/21 16:28 01/03/21 20:41 White Blood Count 7.4 x10^3/uL (4.0-11.0) Red Blood Count 5.49 x10^6/uL (4.30-5.70) Hemoglobin 17.0 g/dL (13.0-17.5) Hematocrit 52.4 % (39.0-53.0) Mean Corpuscular Volume 96 fL (79-100) Mean Corpuscular Hemoglobin 31 pg (25-35) Mean Corpuscular Hemoglobin Concent 32 g/dL (31-37) Red Cell Distribution Width 15.4 % (11.5-14.5) Platelet Count 207 x10^3/uL (140-400) Neutrophils (%) (Auto) 72 % (31-73) Lymphocytes (%) (Auto) 18 % (24-48) Monocytes (%) (Auto) 9 % (0-9) Eosinophils (%) (Auto) 1 % (0-3) Basophils (%) (Auto) 1 % (0-3) Neutrophils # (Auto) 5.3 x10^3/uL (1.8-7.7) Lymphocytes # (Auto) 1.3 x10^3/uL (1.0-4.8) Monocytes # (Auto) 0.7 x10^3/uL (0.0-1.1) Eosinophils # (Auto) 0.1 x10^3/uL (0.0-0.7) Basophils # (Auto) 0.0 x10^3/uL (0.0-0.2) D-Dimer (Nai) 1.01 ug/mlFEU (0.00-0.50) Sodium Level 140 mmol/L (136-145) Potassium Level 4.9 mmol/L (3.5-5.1) Chloride Level 99 mmol/L (98-107) Carbon Dioxide Level 37 mmol/L (21-32) Anion Gap 4 (6-14) Blood Urea Nitrogen 15 mg/dL (8-26) Creatinine 0.8 mg/dL (0.7-1.3) Estimated GFR (Cockcroft-Gault) 100.7 BUN/Creatinine Ratio 19 (6-20) Glucose Level 144 mg/dL (70-99) Lactic Acid Level 1.0 mmol/L (0.4-2.0) Calcium Level 8.8 mg/dL (8.5-10.1) Magnesium Level 2.1 mg/dL (1.8-2.4) Total Bilirubin 0.9 mg/dL (0.2-1.0) Aspartate Amino Transf (AST/SGOT) 15 U/L (15-37) Alanine Aminotransferase (ALT/SGPT) 17 U/L (16-63) Alkaline Phosphatase 63 U/L (46-116) Creatine Kinase 74 U/L (39-308) Creatine Kinase MB (Mass) 2.8 ng/mL (0.0-3.6) Creatine Kinase MB Relative Index % (0-4) Troponin I Quantitative < 0.017 ng/mL (0.000-0.055) FR-Wep-Y-Type Natriuretic Peptide 1118 pg/mL (0-124) Total Protein 6.7 g/dL (6.4-8.2) Albumin 3.3 g/dL (3.4-5.0) Albumin/Globulin Ratio 1.0 (1.0-1.7) Influenza Type A Antigen Negative (NEGATIVE) Influenza Type B Antigen Negative (NEGATIVE) O2 Saturation 96 % (92-99) Arterial Blood pH 7.34 (7.35-7.45) Arterial Blood pCO2 at Patient Temp 68 mmHg (35-46) Arterial Blood pO2 at Patient Temp 90 mmHg (75-108) Arterial Blood HCO3 36 mmol/L (21-28) Arterial Blood Base Excess 7 mmol/L (-3-3) Oxyhemoglobin 90.3 % Methemoglobin 0.3 % (0.0-1.9) Carbon Monoxide, Quantitative 5.9 % (0.0-1.9) FiO2 52/ 8l nc Glucose (Fingerstick) 109 mg/dL (70-99) Test 01/03/21 22:00 01/03/21 23:50 01/04/21 04:00 01/04/21 07:51 Ferritin 54 ng/mL (26-388) Lactate Dehydrogenase 137 U/L (85-227) Troponin I Quantitative < 0.017 ng/mL (0.000-0.055) < 0.017 ng/mL (0.000-0.055) Procalcitonin < 0.10 ng/mL (0.00-0.10) < 0.10 ng/mL (0.00-0.10) Urine Collection Type Unknown Urine Color Yellow Urine Clarity Clear Urine pH 5.0 (<5.0-8.0) Urine Specific [place] 1.015 (1.000-1.030) Urine Protein Negative mg/dL (NEG-TRACE) Urine Glucose (UA) >=1000 mg/dL (NEG) Urine Ketones (Stick) Negative mg/dL (NEG) Urine Blood Negative (NEG) Urine Nitrite Negative (NEG) Urine Bilirubin Negative (NEG) Urine Urobilinogen Dipstick 0.2 mg/dL (0.2 mg/dL) Urine Leukocyte Esterase Negative (NEG) Urine RBC 0 /HPF (0-2) Urine WBC 0 /HPF (0-4) Urine Squamous Epithelial Cells Occ /LPF Urine Bacteria 0 /HPF (0-FEW) Urine Mucus Slight /LPF White Blood Count 3.2 x10^3/uL (4.0-11.0) Red Blood Count 5.47 x10^6/uL (4.30-5.70) Hemoglobin 17.1 g/dL (13.0-17.5) Hematocrit 52.6 % (39.0-53.0) Mean Corpuscular Volume 96 fL (79-100) Mean Corpuscular Hemoglobin 31 pg (25-35) Mean Corpuscular Hemoglobin Concent 33 g/dL (31-37) Red Cell Distribution Width 15.6 % (11.5-14.5) Platelet Count 183 x10^3/uL (140-400) Neutrophils (%) (Auto) 88 % (31-73) Lymphocytes (%) (Auto) 11 % (24-48) Monocytes (%) (Auto) 1 % (0-9) Eosinophils (%) (Auto) 0 % (0-3) Basophils (%) (Auto) 0 % (0-3) Neutrophils # (Auto) 2.8 x10^3/uL (1.8-7.7) Lymphocytes # (Auto) 0.4 x10^3/uL (1.0-4.8) Monocytes # (Auto) 0.0 x10^3/uL (0.0-1.1) Eosinophils # (Auto) 0.0 x10^3/uL (0.0-0.7) Basophils # (Auto) 0.0 x10^3/uL (0.0-0.2) Segmented Neutrophils % 81 % (35-66) Band Neutrophils % 4 % (0-9) Lymphocytes % 14 % (24-48) Monocytes % 1 % (0-10) Platelet Estimate Adequate (ADEQUATE) Sodium Level 137 mmol/L (136-145) Potassium Level 5.2 mmol/L (3.5-5.1) Chloride Level 95 mmol/L (98-107) Carbon Dioxide Level 36 mmol/L (21-32) Anion Gap 6 (6-14) Blood Urea Nitrogen 18 mg/dL (8-26) Creatinine 0.9 mg/dL (0.7-1.3) Estimated GFR (Cockcroft-Gault) 87.9 Glucose Level 198 mg/dL (70-99) Calcium Level 9.0 mg/dL (8.5-10.1) Glucose (Fingerstick) 150 mg/dL (70-99) Test 01/04/21 07:52 Glucose (Fingerstick) 114 mg/dL (70-99) Review of Systems Review of Systems Review of systems pertinent as per HPI otherwise 14 point review of system is negative Assessment and Plan Assessmemt and Plan Problems Medical Problems: (1) COPD exacerbation Status: Acute (2) Suspected 2019 novel coronavirus infection Status: Acute Comment Review of Relevant I have reviewed the following items wade (where applicable) has been applied. Labs Laboratory Tests Test 01/03/21 15:03 01/03/21 16:15 01/03/21 16:28 01/03/21 20:41 White Blood Count 7.4 x10^3/uL (4.0-11.0) Red Blood Count 5.49 x10^6/uL (4.30-5.70) Hemoglobin 17.0 g/dL (13.0-17.5) Hematocrit 52.4 % (39.0-53.0) Mean Corpuscular Volume 96 fL (79-100) Mean Corpuscular Hemoglobin 31 pg (25-35) Mean Corpuscular Hemoglobin Concent 32 g/dL (31-37) Red Cell Distribution Width 15.4 % (11.5-14.5) Platelet Count 207 x10^3/uL (140-400) Neutrophils (%) (Auto) 72 % (31-73) Lymphocytes (%) (Auto) 18 % (24-48) Monocytes (%) (Auto) 9 % (0-9) Eosinophils (%) (Auto) 1 % (0-3) Basophils (%) (Auto) 1 % (0-3) Neutrophils # (Auto) 5.3 x10^3/uL (1.8-7.7) Lymphocytes # (Auto) 1.3 x10^3/uL (1.0-4.8) Monocytes # (Auto) 0.7 x10^3/uL (0.0-1.1) Eosinophils # (Auto) 0.1 x10^3/uL (0.0-0.7) Basophils # (Auto) 0.0 x10^3/uL (0.0-0.2) D-Dimer (Nai) 1.01 ug/mlFEU (0.00-0.50) Sodium Level 140 mmol/L (136-145) Potassium Level 4.9 mmol/L (3.5-5.1) Chloride Level 99 mmol/L (98-107) Carbon Dioxide Level 37 mmol/L (21-32) Anion Gap 4 (6-14) Blood Urea Nitrogen 15 mg/dL (8-26) Creatinine 0.8 mg/dL (0.7-1.3) Estimated GFR (Cockcroft-Gault) 100.7 BUN/Creatinine Ratio 19 (6-20) Glucose Level 144 mg/dL (70-99) Lactic Acid Level 1.0 mmol/L (0.4-2.0) Calcium Level 8.8 mg/dL (8.5-10.1) Magnesium Level 2.1 mg/dL (1.8-2.4) Total Bilirubin 0.9 mg/dL (0.2-1.0) Aspartate Amino Transf (AST/SGOT) 15 U/L (15-37) Alanine Aminotransferase (ALT/SGPT) 17 U/L (16-63) Alkaline Phosphatase 63 U/L (46-116) Creatine Kinase 74 U/L (39-308) Creatine Kinase MB (Mass) 2.8 ng/mL (0.0-3.6) Creatine Kinase MB Relative Index % (0-4) Troponin I Quantitative < 0.017 ng/mL (0.000-0.055) W[place]-Pfm-H-Type Natriuretic Peptide 1118 pg/mL (0-124) Total Protein 6.7 g/dL (6.4-8.2) Albumin 3.3 g/dL (3.4-5.0) Albumin/Globulin Ratio 1.0 (1.0-1.7) Influenza Type A Antigen Negative (NEGATIVE) Influenza Type B Antigen Negative (NEGATIVE) O2 Saturation 96 % (92-99) Arterial Blood pH 7.34 (7.35-7.45) Arterial Blood pCO2 at Patient Temp 68 mmHg (35-46) Arterial Blood pO2 at Patient Temp 90 mmHg (75-108) Arterial Blood HCO3 36 mmol/L (21-28) Arterial Blood Base Excess 7 mmol/L (-3-3) Oxyhemoglobin 90.3 % Methemoglobin 0.3 % (0.0-1.9) Carbon Monoxide, Quantitative 5.9 % (0.0-1.9) FiO2 52/ 8l nc Glucose (Fingerstick) 109 mg/dL (70-99) Test 01/03/21 22:00 01/03/21 23:50 01/04/21 04:00 01/04/21 07:51 Ferritin 54 ng/mL (26-388) Lactate Dehydrogenase 137 U/L (85-227) Troponin I Quantitative < 0.017 ng/mL (0.000-0.055) < 0.017 ng/mL (0.000-0.055) Procalcitonin < 0.10 ng/mL (0.00-0.10) < 0.10 ng/mL (0.00-0.10) Urine Collection Type Unknown Urine Color Yellow Urine Clarity Clear Urine pH 5.0 (<5.0-8.0) Urine Specific [place] 1.015 (1.000-1.030) Urine Protein Negative mg/dL (NEG-TRACE) Urine Glucose (UA) >=1000 mg/dL (NEG) Urine Ketones (Stick) Negative mg/dL (NEG) Urine Blood Negative (NEG) Urine Nitrite Negative (NEG) Urine Bilirubin Negative (NEG) Urine Urobilinogen Dipstick 0.2 mg/dL (0.2 mg/dL) Urine Leukocyte Esterase Negative (NEG) Urine RBC 0 /HPF (0-2) Urine WBC 0 /HPF (0-4) Urine Squamous Epithelial Cells Occ /LPF Urine Bacteria 0 /HPF (0-FEW) Urine Mucus Slight /LPF White Blood Count 3.2 x10^3/uL (4.0-11.0) Red Blood Count 5.47 x10^6/uL (4.30-5.70) Hemoglobin 17.1 g/dL (13.0-17.5) Hematocrit 52.6 % (39.0-53.0) Mean Corpuscular Volume 96 fL (79-100) Mean Corpuscular Hemoglobin 31 pg (25-35) Mean Corpuscular Hemoglobin Concent 33 g/dL (31-37) Red Cell Distribution Width 15.6 % (11.5-14.5) Platelet Count 183 x10^3/uL (140-400) Neutrophils (%) (Auto) 88 % (31-73) Lymphocytes (%) (Auto) 11 % (24-48) Monocytes (%) (Auto) 1 % (0-9) Eosinophils (%) (Auto) 0 % (0-3) Basophils (%) (Auto) 0 % (0-3) Neutrophils # (Auto) 2.8 x10^3/uL (1.8-7.7) Lymphocytes # (Auto) 0.4 x10^3/uL (1.0-4.8) Monocytes # (Auto) 0.0 x10^3/uL (0.0-1.1) Eosinophils # (Auto) 0.0 x10^3/uL (0.0-0.7) Basophils # (Auto) 0.0 x10^3/uL (0.0-0.2) Segmented Neutrophils % 81 % (35-66) Band Neutrophils % 4 % (0-9) Lymphocytes % 14 % (24-48) Monocytes % 1 % (0-10) Platelet Estimate Adequate (ADEQUATE) Sodium Level 137 mmol/L (136-145) Potassium Level 5.2 mmol/L (3.5-5.1) Chloride Level 95 mmol/L (98-107) Carbon Dioxide Level 36 mmol/L (21-32) Anion Gap 6 (6-14) Blood Urea Nitrogen 18 mg/dL (8-26) Creatinine 0.9 mg/dL (0.7-1.3) Estimated GFR (Cockcroft-Gault) 87.9 Glucose Level 198 mg/dL (70-99) Calcium Level 9.0 mg/dL (8.5-10.1) Glucose (Fingerstick) 150 mg/dL (70-99) Test 01/04/21 07:52 Glucose (Fingerstick) 114 mg/dL (70-99) Laboratory Tests Test 01/03/21 15:03 01/03/21 16:15 01/03/21 16:28 01/03/21 20:41 White Blood Count 7.4 x10^3/uL (4.0-11.0) Red Blood Count 5.49 x10^6/uL (4.30-5.70) Hemoglobin 17.0 g/dL (13.0-17.5) Hematocrit 52.4 % (39.0-53.0) Mean Corpuscular Volume 96 fL (79-100) Mean Corpuscular Hemoglobin 31 pg (25-35) Mean Corpuscular Hemoglobin Concent 32 g/dL (31-37) Red Cell Distribution Width 15.4 % (11.5-14.5) Platelet Count 207 x10^3/uL (140-400) Neutrophils (%) (Auto) 72 % (31-73) Lymphocytes (%) (Auto) 18 % (24-48) Monocytes (%) (Auto) 9 % (0-9) Eosinophils (%) (Auto) 1 % (0-3) Basophils (%) (Auto) 1 % (0-3) Neutrophils # (Auto) 5.3 x10^3/uL (1.8-7.7) Lymphocytes # (Auto) 1.3 x10^3/uL (1.0-4.8) Monocytes # (Auto) 0.7 x10^3/uL (0.0-1.1) Eosinophils # (Auto) 0.1 x10^3/uL (0.0-0.7) Basophils # (Auto) 0.0 x10^3/uL (0.0-0.2) D-Dimer (Nai) 1.01 ug/mlFEU (0.00-0.50) Sodium Level 140 mmol/L (136-145) Potassium Level 4.9 mmol/L (3.5-5.1) Chloride Level 99 mmol/L (98-107) Carbon Dioxide Level 37 mmol/L (21-32) Anion Gap 4 (6-14) Blood Urea Nitrogen 15 mg/dL (8-26) Creatinine 0.8 mg/dL (0.7-1.3) Estimated GFR (Cockcroft-Gault) 100.7 BUN/Creatinine Ratio 19 (6-20) Glucose Level 144 mg/dL (70-99) Lactic Acid Level 1.0 mmol/L (0.4-2.0) Calcium Level 8.8 mg/dL (8.5-10.1) Magnesium Level 2.1 mg/dL (1.8-2.4) Total Bilirubin 0.9 mg/dL (0.2-1.0) Aspartate Amino Transf (AST/SGOT) 15 U/L (15-37) Alanine Aminotransferase (ALT/SGPT) 17 U/L (16-63) Alkaline Phosphatase 63 U/L (46-116) Creatine Kinase 74 U/L (39-308) Creatine Kinase MB (Mass) 2.8 ng/mL (0.0-3.6) Creatine Kinase MB Relative Index % (0-4) Troponin I Quantitative < 0.017 ng/mL (0.000-0.055) TN-Ifc-S-Type Natriuretic Peptide 1118 pg/mL (0-124) Total Protein 6.7 g/dL (6.4-8.2) Albumin 3.3 g/dL (3.4-5.0) Albumin/Globulin Ratio 1.0 (1.0-1.7) Influenza Type A Antigen Negative (NEGATIVE) Influenza Type B Antigen Negative (NEGATIVE) O2 Saturation 96 % (92-99) Arterial Blood pH 7.34 (7.35-7.45) Arterial Blood pCO2 at Patient Temp 68 mmHg (35-46) Arterial Blood pO2 at Patient Temp 90 mmHg (75-108) Arterial Blood HCO3 36 mmol/L (21-28) Arterial Blood Base Excess 7 mmol/L (-3-3) Oxyhemoglobin 90.3 % Methemoglobin 0.3 % (0.0-1.9) Carbon Monoxide, Quantitative 5.9 % (0.0-1.9) FiO2 52/ 8l nc Glucose (Fingerstick) 109 mg/dL (70-99) Test 01/03/21 22:00 01/03/21 23:50 01/04/21 04:00 01/04/21 07:51 Ferritin 54 ng/mL (26-388) Lactate Dehydrogenase 137 U/L (85-227) Troponin I Quantitative < 0.017 ng/mL (0.000-0.055) < 0.017 ng/mL (0.000-0.055) Procalcitonin < 0.10 ng/mL (0.00-0.10) < 0.10 ng/mL (0.00-0.10) Urine Collection Type Unknown Urine Color Yellow Urine Clarity Clear Urine pH 5.0 (<5.0-8.0) Urine Specific [place] 1.015 (1.000-1.030) Urine Protein Negative mg/dL (NEG-TRACE) Urine Glucose (UA) >=1000 mg/dL (NEG) Urine Ketones (Stick) Negative mg/dL (NEG) Urine Blood Negative (NEG) Urine Nitrite Negative (NEG) Urine Bilirubin Negative (NEG) Urine Urobilinogen Dipstick 0.2 mg/dL (0.2 mg/dL) Urine Leukocyte Esterase Negative (NEG) Urine RBC 0 /HPF (0-2) Urine WBC 0 /HPF (0-4) Urine Squamous Epithelial Cells Occ /LPF Urine Bacteria 0 /HPF (0-FEW) Urine Mucus Slight /LPF White Blood Count 3.2 x10^3/uL (4.0-11.0) Red Blood Count 5.47 x10^6/uL (4.30-5.70) Hemoglobin 17.1 g/dL (13.0-17.5) Hematocrit 52.6 % (39.0-53.0) Mean Corpuscular Volume 96 fL (79-100) Mean Corpuscular Hemoglobin 31 pg (25-35) Mean Corpuscular Hemoglobin Concent 33 g/dL (31-37) Red Cell Distribution Width 15.6 % (11.5-14.5) Platelet Count 183 x10^3/uL (140-400) Neutrophils (%) (Auto) 88 % (31-73) Lymphocytes (%) (Auto) 11 % (24-48) Monocytes (%) (Auto) 1 % (0-9) Eosinophils (%) (Auto) 0 % (0-3) Basophils (%) (Auto) 0 % (0-3) Neutrophils # (Auto) 2.8 x10^3/uL (1.8-7.7) Lymphocytes # (Auto) 0.4 x10^3/uL (1.0-4.8) Monocytes # (Auto) 0.0 x10^3/uL (0.0-1.1) Eosinophils # (Auto) 0.0 x10^3/uL (0.0-0.7) Basophils # (Auto) 0.0 x10^3/uL (0.0-0.2) Segmented Neutrophils % 81 % (35-66) Band Neutrophils % 4 % (0-9) Lymphocytes % 14 % (24-48) Monocytes % 1 % (0-10) Platelet Estimate Adequate (ADEQUATE) Sodium Level 137 mmol/L (136-145) Potassium Level 5.2 mmol/L (3.5-5.1) Chloride Level 95 mmol/L (98-107) Carbon Dioxide Level 36 mmol/L (21-32) Anion Gap 6 (6-14) Blood Urea Nitrogen 18 mg/dL (8-26) Creatinine 0.9 mg/dL (0.7-1.3) Estimated GFR (Cockcroft-Gault) 87.9 Glucose Level 198 mg/dL (70-99) Calcium Level 9.0 mg/dL (8.5-10.1) Glucose (Fingerstick) 150 mg/dL (70-99) Test 01/04/21 07:52 Glucose (Fingerstick) 114 mg/dL (70-99) Medications Current Medications Iohexol (Omnipaque 300 Mg/ml) 75 ml 1X ONCE IV ; Start 01/03/21 at 16:30; Stop 01/03/21 at 16:31; Status Cancel Info (CONTRAST GIVEN -- Rx MONITORING) 1 each PRN DAILY PRN MC SEE COMMENTS; Start 01/03/21 at 16:30; Stop 01/05/21 at 16:29 Iohexol (Omnipaque 350 Mg/ml) 100 ml STK-MED ONCE .ROUTE ; Start 01/03/21 at 16:30; Stop 01/03/21 at 16:31; Status DC Dexamethasone Sodium Phosphate (Decadron) 10 mg 1X ONCE IVP Last administered on 01/03/21at 17:12; Start 01/03/21 at 16:45; Stop 01/03/21 at 16:46; Status DC Ondansetron HCl (Zofran) 4 mg PRN Q8HRS PRN IV NAUSEA/VOMITING; Start 01/03/21 at 17:30; Stop 01/04/21 at 17:29; Status Cancel Insulin Human Lispro (HumaLOG) 0-5 UNITS TIDWMEALS SQ ; Start 01/04/21 at 08:00; Stop 01/04/21 at 08:53; Status DC Dextrose (Dextrose 50%-Water Syringe) 12.5 gm PRN Q15MIN PRN IV SEE COMMENTS; Start 01/03/21 at 17:30; Stop 01/04/21 at 08:42; Status DC Ceftriaxone Sodium (Rocephin) 1 gm 1X ONCE IVP Last administered on 01/03/21at 17:51; Start 01/03/21 at 17:30; Stop 01/03/21 at 17:31; Status DC Azithromycin 250 ml @ 250 mls/hr 1X ONCE IV Last administered on 01/03/21at 17:50; Start 01/03/21 at 17:30; Stop 01/03/21 at 18:29; Status DC Ondansetron HCl (Zofran) 4 mg PRN Q6HRS PRN IVP NAUSEA/VOMITING; Start 01/03/21 at 17:30 Prochlorperazine (Compazine) 25 mg PRN Q12HR PRN MN NAUSEA/VOMITING; Start 01/03/21 at 17:30 Al Hydroxide/Mg Hydroxide (Mylanta Plus Xs) 30 ml PRN Q3HRS PRN PO HEARTBURN / GAS; Start 01/03/21 at 17:30 Calcium Carbonate/ Glycine (Tums) 500 mg PRN Q3HRS PRN PO UPSET STOMACH; Start 01/03/21 at 17:30 Zolpidem Tartrate (Ambien) 5 mg PRN QHS PRN PO INSOMNIA, MAY REPEAT IN 1HR; Start 01/03/21 at 17:30 Info (Non-Icu Electrolyte Protocol) 1 ea PRN DAILY PRN MC SEE COMMENTS; Start 01/03/21 at 17:30 Morphine Sulfate (Morphine Sulfate) 1 mg PRN Q1HR PRN IV PAIN-SEE COMMENTS; Start 01/03/21 at 17:30 Acetaminophen/ Hydrocodone Bitart (Lortab 5/325) 1 tab PRN Q4HRS PRN PO MILD PAIN 1-3; Start 01/03/21 at 17:30 Acetaminophen (Tylenol) 650 mg PRN Q6HRS PRN PO Headaches, Temp > 101.5F; Start 01/03/21 at 17:30 Senna/Docusate Sodium (Senna Plus) 1 tab BID PO Last administered on 01/04/21at 08:37; Start 01/03/21 at 21:00 Magnesium Hydroxide (Milk Of Magnesia) 2,400 mg PRN Q12HR PRN PO CONSTIPATION; Start 01/03/21 at 17:30 Lactulose (Lactulose) 20 gm PRN Q12HR PRN PO CONSTIPATION; Start 01/03/21 at 17:30 Bisacodyl (Dulcolax Supp) 10 mg PRN DAILY PRN [place] CONSTIPATION; Start 01/03/21 at 17:30 Enoxaparin Sodium (Lovenox 40mg Syringe) 40 mg Q24H SQ Last administered on 01/03/21at 20:30; Start 01/03/21 at 18:00 Albuterol Sulfate (Ventolin Neb Soln) 2.5 mg PRN Q6HRS PRN INH SHORTNESS OF BREATH; Start 01/03/21 at 17:30; Stop 01/03/21 at 18:02; Status DC Aspirin (Jack Aspirin) 325 mg DAILY PO Last administered on 01/04/21at 08:33; Start 01/04/21 at 09:00 Lisinopril (Prinivil) 5 mg DAILY PO ; Start 01/04/21 at 09:00; Stop 01/04/21 at 06:55; Status DC Pantoprazole Sodium (Protonix) 40 mg DAILYAC PO Last administered on 01/04/21at 08:33; Start 01/04/21 at 07:30 Potassium Chloride (Klor-Con) 10 meq BIDWMEALS PO ; Start 01/03/21 at 18:00 Torsemide (Demadex) 20 mg BID PO Last administered on 01/04/21at 08:37; Start 01/03/21 at 21:00 Non-Formulary Medication (Fluticasone/ Salmeterol (Advair 500-50 Diskus)) 1 puff BID IH ; Start 01/03/21 at 21:00; Status UNV Non-Formulary Medication (Tiotropium [place] (Spiriva)) 18 mcg DAILY IH ; Start 01/04/21 at 09:00; Status UNV Non-Formulary Medication ([Albuterol Sulfate] ) 2.5 mg PRN Q2HR PRN NEB DYSPNEA; Start 01/03/21 at 17:30; Status UNV Albuterol/ Ipratropium (Duoneb) 3 ml RTQID NEB ; Start 01/03/21 at 20:00 Albuterol Sulfate (Ventolin Neb Soln) 2.5 mg PRN Q2HR PRN NEB Shortness of Air; Start 01/03/21 at 18:00 Budesonide (Pulmicort) 0.5 mg RTBID NEB ; Start 01/03/21 at 20:00 Doxycycline Hyclate (Vibra-Tab) 100 mg BID PO ; Start 01/04/21 at 09:00; Stop 01/03/21 at 18:52; Status DC Methylprednisolone Sodium Succinate (SOLU-Medrol 125MG VIAL) 125 mg Q8HRS IV Last administered on 01/04/21at 05:36; Start 01/03/21 at 19:00 Furosemide (Lasix) 40 mg [id number] PEG Last administered on 01/04/21at 08:48; Start 01/03/21 at 18:45 Azithromycin (Zithromax) 500 mg DAILY PO Last administered on 01/04/21at 08:37; Start 01/04/21 at 09:00; Stop 01/05/21 at 09:01 Ceftriaxone Sodium (Rocephin) 1 gm Q24H IVP Last administered on 01/04/21at 08:39; Start 01/04/21 at 09:00 Insulin Human Lispro (HumaLOG) 0-7 UNITS TIDWMEALS SQ ; Start 01/04/21 at 08:00 Dextrose (Dextrose 50%-Water Syringe) 12.5 gm PRN Q15MIN PRN IV SEE COMMENTS; Start 01/03/21 at 19:00 Insulin Glargine (Lantus Syringe) 10 unit QHS SQ ; Start 01/03/21 at 21:00 Influenza Virus Vaccine Quadrival (Fluzone Quad [id number] Syringe) 0.5 ml ONCE ONCE VAX IM ; Start 01/04/21 at 09:00; Stop 01/04/21 at 09:01; Status DC Active Scripts Active Protonix (Pantoprazole Sodium) 40 Mg Tablet.dr 40 Mg PO DAILY Prednisone 20 Mg Tablet 20 Mg PO DAILY [Albuterol Sulfate] 2.5 MG/3 ML Nebu 2.5 Mg NEB PRN Q2HR PRN Reported Glyxambi 25 mg-5 mg Tablet (Empagliflozin/Linagliptin) 1 Each Tablet 1 Each PO DAILY Senna Laxative (Sennosides) 8.6 Mg Tablet 8.6 Mg PO HS Proair Hfa Inhaler (Albuterol Sulfate) 8.5 Gm Hfa.aer.ad 1 Puff INH PRN Q6HRS MN N Advair 500-50 Diskus (Fluticasone/Salmeterol) 1 Each Disk.w.dev 1 Puff IH BID Aspirin 325 Mg Tablet 325 Mg PO DAILY Metformin Hcl Er (Metformin Hcl) 500 Mg Tab.er.24 500 Mg PO BID Potassium Chloride (Potassium Chloride) 10 Meq Capsule.er 10 Meq PO BID Lisinopril 5 Mg Tablet 10 Mg PO DAILY Glimepiride 4 Mg Tablet 4 Mg PO BID Torsemide 20 Mg Tablet 20 Mg PO BID Spiriva (Tiotropium [place]) 18 Mcg Cap.w.dev 18 Mcg IH DAILY Vitals/I & O Vital Sign - Last 24 Hours 01/03/21 01/03/21 01/03/21 01/03/21 14:43 15:24 15:54 16:26 Temp 98.0 98.0 Pulse 124 112 112 Resp 26 24 B/P (MAP) 157/92 (113) 116/67 (83) 124/67 (86) Pulse Ox 95 94 91 O2 Delivery Nasal Cannula Nasal Cannula O2 Flow Rate 8.0 8.0 01/03/21 01/03/21 01/03/21 01/03/21 16:42 16:57 17:08 17:24 Pulse 119 100 106 Resp 24 20 20 B/P (MAP) 135/76 (95) 123/68 (86) 127/72 (90) Pulse Ox 95 90 96 O2 Delivery BiPAP/CPAP BiPAP/CPAP BiPAP/CPAP 01/03/21 01/03/21 01/03/21 01/03/21 17:54 19:00 20:00 20:03 Temp 96.3 96.3 Pulse 104 103 Resp 20 18 B/P (MAP) 120/72 (88) 131/80 (97) Pulse Ox 94 95 92 O2 Delivery BiPAP/CPAP BiPAP/CPAP Bi-pap BiPAP/CPAP 01/03/21 01/03/21 01/04/21 01/04/21 23:00 23:50 03:22 07:45 Temp 96.3 96.7 96.3 96.7 Pulse 100 96 Resp 24 16 B/P (MAP) 141/72 (95) 137/82 (100) Pulse Ox 94 93 95 O2 Delivery Nasal Cannula BiPAP/CPAP BiPAP/CPAP Nasal Cannula O2 Flow Rate 9.0 8.0 Intake and Output 01/03/21 01/03/21 01/04/21 15:00 23:00 07:00 Intake Total 800 ml 1500 ml Output Total 450 ml 2500 ml Balance 350 ml -1000 ml Justicifation of Admission Dx: Justifications for Admission: Justification of Admission Dx: Yes Respiratory Failure: Severe Resp Distress KAMILA FLORES MD Jan 04, 2021 09:21
[2021-01-04] MEDS ORDERED: FUROSEMIDE 40 MG/4 ML VIAL. IVP ONE (09:45)
[2021-01-04] MEDS ORDERED: methylPREDNISolone SOD SUCC PF 40 MG/ML VIAL. IV SCH (10:00)
--- NOTE | 2021-01-04 10:42 | CONS ---
DATE OF CONSULTATION: PULMONARY CONSULTATION ATTENDING PHYSICIAN: Pedro Malloy MD. REASON FOR CONSULTATION: Respiratory failure. HISTORY OF PRESENT ILLNESS: The patient is a 55-year-old male who is very well known to me. He has history of chronic obstructive airway disease, chronic hypoxic respiratory failure. He has been on home oxygen between 4-6 liters and also has been on home BiPAP. He has a history of congestive heart failure and cor pulmonale. He was brought into the hospital with increasing dyspnea for the last several days. He denies any cough, no fever, no chills, no chest pains. No nausea, vomiting or diarrhea. He does complain of increased abdominal girth and some lower extremity edema. The patient underwent CT angiogram and it was reviewed by me. There was no evidence of any definite consolidation. No evidence of pulmonary embolism. There were fine bilateral ground glass infiltrates. No significant pleural effusion. There was mild mediastinal hilar adenopathy, slightly increased since 2017. He is currently requiring BiPAP at 60% FiO2. His ABG showed a pH of 7.34, pCO2 of 60 and a pO2 of 90 on 8 liters oxygen. His influenza screen is negative. PAST MEDICAL HISTORY: Significant for, 1. History of chronic hypoxic respiratory failure. 2. Chronic right heart failure. 3. History of diastolic CHF, history of morbid obesity, BALTA, OHS, history of hypertension, peripheral neuropathy, and diabetes. PAST SURGICAL HISTORY: Cholecystectomy. ALLERGIES: None. MEDICATIONS: Reviewed as listed in the [facility]AD including antibiotics and IV Solu-Medrol. REVIEW OF SYSTEMS: A 12-point system obtained. Pertinent positives discussed in my history of present illness, otherwise noncontributory. All systems that were negative were reviewed as well. FAMILY HISTORY: Noncontributory to lungs. SOCIAL HISTORY: He has long history of tobacco use, at least 35-40 years and has not completely quit. PHYSICAL EXAMINATION: VITAL SIGNS: Reviewed. He is afebrile, pulse ox is 95% on 60% BiPAP. HEENT: Sclerae nonicteric. NECK: Supple. LUNGS: With diminished breath sounds. CARDIOVASCULAR: With a regular rate. ABDOMEN: Soft, obese. EXTREMITIES: With 1+ pitting edema. LABORATORY DATA: Reviewed. His BUN 18, creatinine 0.9. Troponin normal. D-dimer 1.01. ABGs as discussed in my history of present illness. White cell count 3.2, hemoglobin 17.1 and platelets are 183. IMPRESSION: 1. Acute on chronic hypoxic and hypercapnic respiratory failure secondary to multifactorial etiologies including acute exacerbation of chronic obstructive pulmonary disease, [id number] right heart failure and cannot rule out COVID-19 viral infection. 2. Underlying severe obstructive airway disease with ongoing tobaccoism. He is on home oxygen continuously at 4-6 liters. 3. Obstructive sleep apnea, obesity hypoventilation syndrome, on home BiPAP. 4. Leukopenia, could be viral, needs to rule out COVID-19 infection. 5. Influenza screen negative. 6. Abnormal CT chest with no evidence of pulmonary embolism, but faint ground-glass infiltrates bilaterally. This could be secondary to multifactorial etiologies including possible viral infection, possible alveolitis and also could be related to mild interstitial edema. RECOMMENDATIONS: 1. We will continue present BiPAP and try Ventimask as tolerated. 2. Continue empiric antibiotics. 3. Taper steroids. 4. Continue nebulizers with albuterol and budesonide. 5. Lovenox for DVT prophylaxis. 6. Rule out COVID infection. 7. Diuresis will be added. 8. Discussed with RN. We will follow along with you. IRAIS HICKS MD DR: DIANA/mary JOB#: [id number] / [id number]
[2021-01-04 11:00] VITALS: BP 121/74
[2021-01-04] MEDS: methylPREDNISolone SOD SUCC PF 40 MG/ML VIAL. IV SCH ×2 (13:47→21:02)
[2021-01-04 15:00] VITALS: BP 118/67
[2021-01-04] MEDS: ENOXAPARIN 40 MG/0.4 ML SYRINGE. SQ SCH (16:37)
[2021-01-04] MEDS: LACTOBACILLUS RHAMNOSUS GG 1 CAPSULE. PO SCH (20:49)
[2021-01-04 20:51] VITALS: BP 105/63
[2021-01-04] MEDS: INSULIN GLARGINE SYRINGE. SQ SCH (21:23)
[2021-01-04 23:57] VITALS: BP 110/68
[2021-01-05] MEDS: methylPREDNISolone SOD SUCC PF 40 MG/ML VIAL. IV SCH ×3 (05:04→20:13)
[2021-01-05 05:08] VITALS: BP 118/67
[2021-01-05 07:00] VITALS: BP 135/73
[2021-01-05] MEDS: BUDESONIDE 0.5 MG/2 ML NEBU. NEB SCH ×2 (07:31→20:09)
[2021-01-05] MEDS: IPRATRPIUM/ALBUTEROL 0.5/2.5MG 3 ML NEBU. NEB SCH ×4 (07:31→20:09)
[2021-01-05] MEDS: INSULIN LISPRO 300 UNITS/3 ML VIAL. SQ SCH ×3 (08:00→16:32)
[2021-01-05] MEDS: AZITHROMYCIN 250 MG TABLET. PO SCH (08:06)
[2021-01-05] MEDS: TORSEMIDE 20 MG TABLET. PO SCH ×2 (08:06→20:09)
[2021-01-05] MEDS: FUROSEMIDE 40 MG/4 ML ORAL SOLUTION. PEG SCH ×2 (08:06→14:02)
[2021-01-05] MEDS: ASPIRIN 325 MG TABLET PO SCH (08:06)
[2021-01-05] MEDS: SENNOSIDES/DOCUSATE 8.6/50MG TABLET. PO SCH ×2 (08:06→20:10)
[2021-01-05] MEDS: LACTOBACILLUS RHAMNOSUS GG 1 CAPSULE. PO SCH ×2 (08:06→20:09)
[2021-01-05] MEDS: POTASSIUM CHLORIDE 10 MEQ TABLET.ER. PO SCH ×2 (08:07→16:38)
[2021-01-05] MEDS: PANTOPRAZOLE 40 MG TABLET.DR. PO SCH (08:07)
--- NOTE | 2021-01-05 09:54 | PDOC ---
PULMONARY PROGRESS NOTES DATE: 01/05/21 TIME: 09:52 Subjective remains on bipap, 45%FIO2 feels better Vitals Vital Signs Date Time Temp Pulse Resp B/P (MAP) Pulse Ox O2 Delivery O2 Flow Rate FiO2 01/05/21 08:00 Bi-pap 8.0 01/05/21 07:32 100 01/05/21 07:00 95.7 82 22 135/73 (93) 95.7 General: Alert, No acute distress Lungs: Other (decrease bs) Cardiovascular: S1, S2 Abdomen: Soft, Non-tender Extremities: No Edema Labs Laboratory Tests Test 01/03/21 15:03 01/03/21 16:15 01/03/21 16:28 01/03/21 20:41 White Blood Count 7.4 x10^3/uL (4.0-11.0) Red Blood Count 5.49 x10^6/uL (4.30-5.70) Hemoglobin 17.0 g/dL (13.0-17.5) Hematocrit 52.4 % (39.0-53.0) Mean Corpuscular Volume 96 fL (79-100) Mean Corpuscular Hemoglobin 31 pg (25-35) Mean Corpuscular Hemoglobin Concent 32 g/dL (31-37) Red Cell Distribution Width 15.4 % (11.5-14.5) Platelet Count 207 x10^3/uL (140-400) Neutrophils (%) (Auto) 72 % (31-73) Lymphocytes (%) (Auto) 18 % (24-48) Monocytes (%) (Auto) 9 % (0-9) Eosinophils (%) (Auto) 1 % (0-3) Basophils (%) (Auto) 1 % (0-3) Neutrophils # (Auto) 5.3 x10^3/uL (1.8-7.7) Lymphocytes # (Auto) 1.3 x10^3/uL (1.0-4.8) Monocytes # (Auto) 0.7 x10^3/uL (0.0-1.1) Eosinophils # (Auto) 0.1 x10^3/uL (0.0-0.7) Basophils # (Auto) 0.0 x10^3/uL (0.0-0.2) D-Dimer (Nai) 1.01 ug/mlFEU (0.00-0.50) Sodium Level 140 mmol/L (136-145) Potassium Level 4.9 mmol/L (3.5-5.1) Chloride Level 99 mmol/L (98-107) Carbon Dioxide Level 37 mmol/L (21-32) Anion Gap 4 (6-14) Blood Urea Nitrogen 15 mg/dL (8-26) Creatinine 0.8 mg/dL (0.7-1.3) Estimated GFR (Cockcroft-Gault) 100.7 BUN/Creatinine Ratio 19 (6-20) Glucose Level 144 mg/dL (70-99) Lactic Acid Level 1.0 mmol/L (0.4-2.0) Calcium Level 8.8 mg/dL (8.5-10.1) Magnesium Level 2.1 mg/dL (1.8-2.4) Total Bilirubin 0.9 mg/dL (0.2-1.0) Aspartate Amino Transf (AST/SGOT) 15 U/L (15-37) Alanine Aminotransferase (ALT/SGPT) 17 U/L (16-63) Alkaline Phosphatase 63 U/L (46-116) Creatine Kinase 74 U/L (39-308) Creatine Kinase MB (Mass) 2.8 ng/mL (0.0-3.6) Creatine Kinase MB Relative Index % (0-4) Troponin I Quantitative < 0.017 ng/mL (0.000-0.055) RA-Rqb-Q-Type Natriuretic Peptide 1118 pg/mL (0-124) Total Protein 6.7 g/dL (6.4-8.2) Albumin 3.3 g/dL (3.4-5.0) Albumin/Globulin Ratio 1.0 (1.0-1.7) Coronavirus (PCR) Not detected (Not Detected) Influenza Type A Antigen Negative (NEGATIVE) Influenza Type B Antigen Negative (NEGATIVE) O2 Saturation 96 % (92-99) Arterial Blood pH 7.34 (7.35-7.45) Arterial Blood pCO2 at Patient Temp 68 mmHg (35-46) Arterial Blood pO2 at Patient Temp 90 mmHg (75-108) Arterial Blood HCO3 36 mmol/L (21-28) Arterial Blood Base Excess 7 mmol/L (-3-3) Oxyhemoglobin 90.3 % Methemoglobin 0.3 % (0.0-1.9) Carbon Monoxide, Quantitative 5.9 % (0.0-1.9) FiO2 52/ 8l nc Glucose (Fingerstick) 109 mg/dL (70-99) Test 01/03/21 22:00 01/03/21 23:50 01/04/21 04:00 01/04/21 07:51 Ferritin 54 ng/mL (26-388) Lactate Dehydrogenase 137 U/L (85-227) Troponin I Quantitative < 0.017 ng/mL (0.000-0.055) < 0.017 ng/mL (0.000-0.055) Procalcitonin < 0.10 ng/mL (0.00-0.10) < 0.10 ng/mL (0.00-0.10) Urine Collection Type Unknown Urine Color Yellow Urine Clarity Clear Urine pH 5.0 (<5.0-8.0) Urine Specific Graham 1.015 (1.000-1.030) Urine Protein Negative mg/dL (NEG-TRACE) Urine Glucose (UA) >=1000 mg/dL (NEG) Urine Ketones (Stick) Negative mg/dL (NEG) Urine Blood Negative (NEG) Urine Nitrite Negative (NEG) Urine Bilirubin Negative (NEG) Urine Urobilinogen Dipstick 0.2 mg/dL (0.2 mg/dL) Urine Leukocyte Esterase Negative (NEG) Urine RBC 0 /HPF (0-2) Urine WBC 0 /HPF (0-4) Urine Squamous Epithelial Cells Occ /LPF Urine Bacteria 0 /HPF (0-FEW) Urine Mucus Slight /LPF White Blood Count 3.2 x10^3/uL (4.0-11.0) Red Blood Count 5.47 x10^6/uL (4.30-5.70) Hemoglobin 17.1 g/dL (13.0-17.5) Hematocrit 52.6 % (39.0-53.0) Mean Corpuscular Volume 96 fL (79-100) Mean Corpuscular Hemoglobin 31 pg (25-35) Mean Corpuscular Hemoglobin Concent 33 g/dL (31-37) Red Cell Distribution Width 15.6 % (11.5-14.5) Platelet Count 183 x10^3/uL (140-400) Neutrophils (%) (Auto) 88 % (31-73) Lymphocytes (%) (Auto) 11 % (24-48) Monocytes (%) (Auto) 1 % (0-9) Eosinophils (%) (Auto) 0 % (0-3) Basophils (%) (Auto) 0 % (0-3) Neutrophils # (Auto) 2.8 x10^3/uL (1.8-7.7) Lymphocytes # (Auto) 0.4 x10^3/uL (1.0-4.8) Monocytes # (Auto) 0.0 x10^3/uL (0.0-1.1) Eosinophils # (Auto) 0.0 x10^3/uL (0.0-0.7) Basophils # (Auto) 0.0 x10^3/uL (0.0-0.2) Segmented Neutrophils % 81 % (35-66) Band Neutrophils % 4 % (0-9) Lymphocytes % 14 % (24-48) Monocytes % 1 % (0-10) Platelet Estimate Adequate (ADEQUATE) Sodium Level 137 mmol/L (136-145) Potassium Level 5.2 mmol/L (3.5-5.1) Chloride Level 95 mmol/L (98-107) Carbon Dioxide Level 36 mmol/L (21-32) Anion Gap 6 (6-14) Blood Urea Nitrogen 18 mg/dL (8-26) Creatinine 0.9 mg/dL (0.7-1.3) Estimated GFR (Cockcroft-Gault) 87.9 Glucose Level 198 mg/dL (70-99) Calcium Level 9.0 mg/dL (8.5-10.1) Glucose (Fingerstick) 150 mg/dL (70-99) Test 01/04/21 07:52 01/04/21 11:10 01/04/21 16:34 01/04/21 20:44 Glucose (Fingerstick) 114 mg/dL (70-99) 177 mg/dL (70-99) 159 mg/dL (70-99) 167 mg/dL (70-99) Test 01/05/21 07:37 Glucose (Fingerstick) 140 mg/dL (70-99) Laboratory Tests Test 01/04/21 11:10 01/04/21 16:34 01/04/21 20:44 01/05/21 07:37 Glucose (Fingerstick) 177 mg/dL (70-99) 159 mg/dL (70-99) 167 mg/dL (70-99) 140 mg/dL (70-99) Medications Active Scripts Medications Dose Route/Sig Max Daily Dose Days Date Category Glyxambi 25 mg-5 mg Tablet (Empagliflozin/Linagliptin) 1 Each Tablet 1 Each PO DAILY 01/03/21 Reported Senna Laxative (Sennosides) 8.6 Mg Tablet 8.6 Mg PO HS 01/03/21 Reported Protonix (Pantoprazole Sodium) 40 Mg Tablet.dr 40 Mg PO DAILY 09/26/14 Rx Prednisone 20 Mg Tablet 20 Mg PO DAILY 09/26/14 Rx [Albuterol Sulfate] 2.5 MG/3 ML Nebu 2.5 Mg NEB PRN Q2HR PRN 09/26/14 Rx Proair Hfa Inhaler (Albuterol Sulfate) 8.5 Gm Hfa.aer.ad 1 Puff INH PRN Q6HRS PRN 09/22/14 Reported Advair 500-50 Diskus (Fluticasone/Salmeterol) 1 Each Disk.w.dev 1 Puff IH BID 09/22/14 Reported Aspirin 325 Mg Tablet 325 Mg PO DAILY 11/26/13 Reported Metformin Hcl Er (Metformin Hcl) 500 Mg Tab.er.24 500 Mg PO BID 11/26/13 Reported Potassium Chloride (Potassium Chloride) 10 Meq Capsule.er 10 Meq PO BID 11/26/13 Reported Lisinopril 5 Mg Tablet 10 Mg PO DAILY 11/26/13 Reported Glimepiride 4 Mg Tablet 4 Mg PO BID 11/26/13 Reported Torsemide 20 Mg Tablet 20 Mg PO BID 11/26/13 Reported Spiriva (Tiotropium Gate) 18 Mcg Cap.w.dev 18 Mcg IH DAILY 11/26/13 Reported Impression . 1. Acute on chronic hypoxic and hypercapnic respiratory failure secondary to multifactorial etiologies including acute exacerbation of chronic obstructive pulmonary disease, [id number] right heart failure Negative for COVID-19 viral infection. 2. Underlying severe obstructive airway disease with ongoing tobaccoism. He is on home oxygen continuously at 4-6 liters. 3. Obstructive sleep apnea, obesity hypoventilation syndrome, on home BiPAP. 4. Leukopenia, could be viral, neg COVID-19 infection. 5. Influenza screen negative. 6. Abnormal CT chest with no evidence of pulmonary embolism, but faint ground-glass infiltrates bilaterally. This could be secondary to multifactorial etiologies including possible viral infection, possible alveolitis and also could be related to mild interstitial edema. Plan . 1. We will continue present BiPAP and try Ventimask as tolerated. 2. Continue empiric antibiotics. 3. Taper steroids. 4. Continue nebulizers with albuterol and budesonide. 5. Lovenox for DVT prophylaxis. 6. Neg for COVID infection. 7. Diuresis 8. Discussed with RN. We will follow along with you. IRAIS HICKS MD Jan 05, 2021 09:54
[2021-01-05 11:00] VITALS: BP 116/74
[2021-01-05] MEDS ORDERED: FUROSEMIDE 40 MG/4 ML VIAL. IVP ONE (11:00)
--- NOTE | 2021-01-05 12:31 | PDOC ---
PROGRESS NOTES Date of Service: DATE: 01/05/21 TIME: 12:26 Chief Complaint Chief Complaint Acute COPD exacerbation secondary to probably pneumonic process History of chronic congestive heart failure diastolic dysfunction Essential hypertension Diabetes mellitus type 2 Overweight with a BMI of 28 Elevated BNP most likely secondary to fluid overload Plan continue with antibiotics mag citrate for constipation ABdominal US to assess possible ascites Solu-Medrol Nebulization therapy Resume home medications DVT prophylaxis Lovenox Reassess in the a.m. History of Present Illness History of Present Illness History of Present Illness Patient is a 55-year-old gentleman with past medical history of hypertension diabetes mellitus type 2 COPD and chronic congestive heart failure with diastolic dysfunction who was in his usual state of health until approximately 2 to 3 days prior to his admission when he started noticing dyspnea that started upon exertion and has subsequently progressed to dyspnea at rest. The patient denies at the present time chest pain no palpitations the patient denies fever chills diaphoresis no sick contacts no coughing sneezing headache no generalized malaise reported. Patient denies any contact with COVID-19 infected people. He has not had changes to his medications no increase salt in his diet. The other other complaint was bloating on his lower abdomen and he suffers from chronic lower extremity edema for which he uses compression stockings. He denies not adherence to his medications. He came to the emergency department due to the progressive nature of his dyspnea. He was evaluated in the emergency department and found to have an elevated BNP and a CAT scan with some diffuse infiltrates. Patient is being admitted for further evaluation and treatment. At the time of my evaluation patient is using accessory muscles he is able to speak despite the BiPAP feels a little better compared to admission but still quite short of breath. Plan of care has been explained in detail all of his concerns were addressed to the best of my ability. 01/04: No acute events reported overnight, case discussed with nursing staff patient in no acute distress no complaints during my visit 01/05: Patient with no acute events reported overnight, patient still complaining of abdominal distention, early satiety but his concern is that he feels quite bloated in his lower abdomen, he reports constipation Vitals Vitals Vital Signs Date Time Temp Pulse Resp B/P (MAP) Pulse Ox O2 Delivery O2 Flow Rate FiO2 01/05/21 11:32 93 BiPAP/CPAP 01/05/21 11:00 95.8 96 24 116/74 (88) 8.0 95.8 Physical Exam Physical Exam Physical Exam Gen.: well-developed well-nourished in no respiratory distress Head: Normal shape atraumatic Eyes: Pupils equal reactive to light and accommodation, normal conjunctivae and lids Ears: Normal shape Nose: Normal shape no trauma Mouth: No exudates of the back of throat no thrush no lesions Neck: Supple no JVD no carotid bruit or lymphadenopathy no thyromegaly Chest: Lungs clear to auscultation with good inspiratory effort no crackles rales or rhonchi Cardiovascular: S1-S2 regular rhythm no murmurs gallops or rubs Abdomen: Bowel sounds present soft nontender no hepatosplenomegaly appreciated sign Extremities: No clubbing no cyanosis 3+ edema peripheral pulses palpated bilaterally Neurological: Alert awake oriented in person time place and situation, cranial nerves II through XII intact, no motor or sensory deficits appreciated Psych: Appropriate mood, cooperative Lungs: Other (decrease bs) Labs LABS Laboratory Tests Test 01/04/21 16:34 01/04/21 20:44 01/05/21 07:37 01/05/21 11:14 Glucose (Fingerstick) 159 mg/dL (70-99) 167 mg/dL (70-99) 140 mg/dL (70-99) 172 mg/dL (70-99) Review of Systems Review of Systems Review of systems pertinent as per HPI otherwise 14 point review of system is negative Assessment and Plan Assessmemt and Plan Problems Medical Problems: (1) COPD exacerbation Status: Acute (2) Suspected 2019 novel coronavirus infection Status: Acute Comment Review of Relevant I have reviewed the following items wade (where applicable) has been applied. Labs Laboratory Tests Test 01/03/21 15:03 01/03/21 16:15 01/03/21 16:28 01/03/21 20:41 White Blood Count 7.4 x10^3/uL (4.0-11.0) Red Blood Count 5.49 x10^6/uL (4.30-5.70) Hemoglobin 17.0 g/dL (13.0-17.5) Hematocrit 52.4 % (39.0-53.0) Mean Corpuscular Volume 96 fL (79-100) Mean Corpuscular Hemoglobin 31 pg (25-35) Mean Corpuscular Hemoglobin Concent 32 g/dL (31-37) Red Cell Distribution Width 15.4 % (11.5-14.5) Platelet Count 207 x10^3/uL (140-400) Neutrophils (%) (Auto) 72 % (31-73) Lymphocytes (%) (Auto) 18 % (24-48) Monocytes (%) (Auto) 9 % (0-9) Eosinophils (%) (Auto) 1 % (0-3) Basophils (%) (Auto) 1 % (0-3) Neutrophils # (Auto) 5.3 x10^3/uL (1.8-7.7) Lymphocytes # (Auto) 1.3 x10^3/uL (1.0-4.8) Monocytes # (Auto) 0.7 x10^3/uL (0.0-1.1) Eosinophils # (Auto) 0.1 x10^3/uL (0.0-0.7) Basophils # (Auto) 0.0 x10^3/uL (0.0-0.2) D-Dimer (Nai) 1.01 ug/mlFEU (0.00-0.50) Sodium Level 140 mmol/L (136-145) Potassium Level 4.9 mmol/L (3.5-5.1) Chloride Level 99 mmol/L (98-107) Carbon Dioxide Level 37 mmol/L (21-32) Anion Gap 4 (6-14) Blood Urea Nitrogen 15 mg/dL (8-26) Creatinine 0.8 mg/dL (0.7-1.3) Estimated GFR (Cockcroft-Gault) 100.7 BUN/Creatinine Ratio 19 (6-20) Glucose Level 144 mg/dL (70-99) Lactic Acid Level 1.0 mmol/L (0.4-2.0) Calcium Level 8.8 mg/dL (8.5-10.1) Magnesium Level 2.1 mg/dL (1.8-2.4) Total Bilirubin 0.9 mg/dL (0.2-1.0) Aspartate Amino Transf (AST/SGOT) 15 U/L (15-37) Alanine Aminotransferase (ALT/SGPT) 17 U/L (16-63) Alkaline Phosphatase 63 U/L (46-116) Creatine Kinase 74 U/L (39-308) Creatine Kinase MB (Mass) 2.8 ng/mL (0.0-3.6) Creatine Kinase MB Relative Index % (0-4) Troponin I Quantitative < 0.017 ng/mL (0.000-0.055) WT-Oyl-O-Type Natriuretic Peptide 1118 pg/mL (0-124) Total Protein 6.7 g/dL (6.4-8.2) Albumin 3.3 g/dL (3.4-5.0) Albumin/Globulin Ratio 1.0 (1.0-1.7) Coronavirus (PCR) Not detected (Not Detected) Influenza Type A Antigen Negative (NEGATIVE) Influenza Type B Antigen Negative (NEGATIVE) O2 Saturation 96 % (92-99) Arterial Blood pH 7.34 (7.35-7.45) Arterial Blood pCO2 at Patient Temp 68 mmHg (35-46) Arterial Blood pO2 at Patient Temp 90 mmHg (75-108) Arterial Blood HCO3 36 mmol/L (21-28) Arterial Blood Base Excess 7 mmol/L (-3-3) Oxyhemoglobin 90.3 % Methemoglobin 0.3 % (0.0-1.9) Carbon Monoxide, Quantitative 5.9 % (0.0-1.9) FiO2 52/ 8l nc Glucose (Fingerstick) 109 mg/dL (70-99) Test 01/03/21 22:00 01/03/21 23:50 01/04/21 04:00 01/04/21 07:51 Ferritin 54 ng/mL (26-388) Lactate Dehydrogenase 137 U/L (85-227) Troponin I Quantitative < 0.017 ng/mL (0.000-0.055) < 0.017 ng/mL (0.000-0.055) Procalcitonin < 0.10 ng/mL (0.00-0.10) < 0.10 ng/mL (0.00-0.10) Urine Collection Type Unknown Urine Color Yellow Urine Clarity Clear Urine pH 5.0 (<5.0-8.0) Urine Specific [place] 1.015 (1.000-1.030) Urine Protein Negative mg/dL (NEG-TRACE) Urine Glucose (UA) >=1000 mg/dL (NEG) Urine Ketones (Stick) Negative mg/dL (NEG) Urine Blood Negative (NEG) Urine Nitrite Negative (NEG) Urine Bilirubin Negative (NEG) Urine Urobilinogen Dipstick 0.2 mg/dL (0.2 mg/dL) Urine Leukocyte Esterase Negative (NEG) Urine RBC 0 /HPF (0-2) Urine WBC 0 /HPF (0-4) Urine Squamous Epithelial Cells Occ /LPF Urine Bacteria 0 /HPF (0-FEW) Urine Mucus Slight /LPF White Blood Count 3.2 x10^3/uL (4.0-11.0) Red Blood Count 5.47 x10^6/uL (4.30-5.70) Hemoglobin 17.1 g/dL (13.0-17.5) Hematocrit 52.6 % (39.0-53.0) Mean Corpuscular Volume 96 fL (79-100) Mean Corpuscular Hemoglobin 31 pg (25-35) Mean Corpuscular Hemoglobin Concent 33 g/dL (31-37) Red Cell Distribution Width 15.6 % (11.5-14.5) Platelet Count 183 x10^3/uL (140-400) Neutrophils (%) (Auto) 88 % (31-73) Lymphocytes (%) (Auto) 11 % (24-48) Monocytes (%) (Auto) 1 % (0-9) Eosinophils (%) (Auto) 0 % (0-3) Basophils (%) (Auto) 0 % (0-3) Neutrophils # (Auto) 2.8 x10^3/uL (1.8-7.7) Lymphocytes # (Auto) 0.4 x10^3/uL (1.0-4.8) Monocytes # (Auto) 0.0 x10^3/uL (0.0-1.1) Eosinophils # (Auto) 0.0 x10^3/uL (0.0-0.7) Basophils # (Auto) 0.0 x10^3/uL (0.0-0.2) Segmented Neutrophils % 81 % (35-66) Band Neutrophils % 4 % (0-9) Lymphocytes % 14 % (24-48) Monocytes % 1 % (0-10) Platelet Estimate Adequate (ADEQUATE) Sodium Level 137 mmol/L (136-145) Potassium Level 5.2 mmol/L (3.5-5.1) Chloride Level 95 mmol/L (98-107) Carbon Dioxide Level 36 mmol/L (21-32) Anion Gap 6 (6-14) Blood Urea Nitrogen 18 mg/dL (8-26) Creatinine 0.9 mg/dL (0.7-1.3) Estimated GFR (Cockcroft-Gault) 87.9 Glucose Level 198 mg/dL (70-99) Calcium Level 9.0 mg/dL (8.5-10.1) Glucose (Fingerstick) 150 mg/dL (70-99) Test 01/04/21 07:52 01/04/21 11:10 01/04/21 16:34 01/04/21 20:44 Glucose (Fingerstick) 114 mg/dL (70-99) 177 mg/dL (70-99) 159 mg/dL (70-99) 167 mg/dL (70-99) Test 01/05/21 07:37 01/05/21 11:14 Glucose (Fingerstick) 140 mg/dL (70-99) 172 mg/dL (70-99) Laboratory Tests Test 01/04/21 16:34 01/04/21 20:44 01/05/21 07:37 01/05/21 11:14 Glucose (Fingerstick) 159 mg/dL (70-99) 167 mg/dL (70-99) 140 mg/dL (70-99) 172 mg/dL (70-99) Microbiology 01/03/21 Blood Culture - Preliminary, Resulted NO GROWTH AFTER 1 DAY Medications Current Medications Iohexol (Omnipaque 300 Mg/ml) 75 ml 1X ONCE IV ; Start 01/03/21 at 16:30; Stop 01/03/21 at 16:31; Status Cancel Info (CONTRAST GIVEN -- Rx MONITORING) 1 each PRN DAILY PRN MC SEE COMMENTS; Start 01/03/21 at 16:30; Stop 01/05/21 at 16:29 Iohexol (Omnipaque 350 Mg/ml) 100 ml STK-MED ONCE .ROUTE ; Start 01/03/21 at 16:30; Stop 01/03/21 at 16:31; Status DC Dexamethasone Sodium Phosphate (Decadron) 10 mg 1X ONCE IVP Last administered on 01/03/21at 17:12; Start 01/03/21 at 16:45; Stop 01/03/21 at 16:46; Status DC Ondansetron HCl (Zofran) 4 mg PRN Q8HRS PRN IV NAUSEA/VOMITING; Start 01/03/21 at 17:30; Stop 01/04/21 at 17:29; Status Cancel Insulin Human Lispro (HumaLOG) 0-5 UNITS TIDWMEALS SQ ; Start 01/04/21 at 08:00; Stop 01/04/21 at 08:53; Status DC Dextrose (Dextrose 50%-Water Syringe) 12.5 gm PRN Q15MIN PRN IV SEE COMMENTS; Start 01/03/21 at 17:30; Stop 01/04/21 at 08:42; Status DC Ceftriaxone Sodium (Rocephin) 1 gm 1X ONCE IVP Last administered on 01/03/21at 17:51; Start 01/03/21 at 17:30; Stop 01/03/21 at 17:31; Status DC Azithromycin 250 ml @ 250 mls/hr 1X ONCE IV Last administered on 01/03/21at 17:50; Start 01/03/21 at 17:30; Stop 01/03/21 at 18:29; Status DC Ondansetron HCl (Zofran) 4 mg PRN Q6HRS PRN IVP NAUSEA/VOMITING; Start 01/03/21 at 17:30 Prochlorperazine (Compazine) 25 mg PRN Q12HR PRN [place] NAUSEA/VOMITING; Start 01/03/21 at 17:30 Al Hydroxide/Mg Hydroxide (Mylanta Plus Xs) 30 ml PRN Q3HRS PRN PO HEARTBURN / GAS; Start 01/03/21 at 17:30 Calcium Carbonate/ Glycine (Tums) 500 mg PRN Q3HRS PRN PO UPSET STOMACH; Start 01/03/21 at 17:30 Zolpidem Tartrate (Ambien) 5 mg PRN QHS PRN PO INSOMNIA, MAY REPEAT IN 1HR; Start 01/03/21 at 17:30 Info (Non-Icu Electrolyte Protocol) 1 ea PRN DAILY PRN MC SEE COMMENTS; Start 01/03/21 at 17:30 Morphine Sulfate (Morphine Sulfate) 1 mg PRN Q1HR PRN IV PAIN-SEE COMMENTS; Start 01/03/21 at 17:30 Acetaminophen/ Hydrocodone Bitart (Lortab 5/325) 1 tab PRN Q4HRS PRN PO PAIN; Start 01/03/21 at 17:30 Acetaminophen (Tylenol) 650 mg PRN Q6HRS PRN PO Headaches, Temp > 101.5F; Start 01/03/21 at 17:30 Senna/Docusate Sodium (Senna Plus) 1 tab BID PO Last administered on 01/05/21at 08:06; Start 01/03/21 at 21:00 Magnesium Hydroxide (Milk Of Magnesia) 2,400 mg PRN Q12HR PRN PO CONSTIPATION; Start 01/03/21 at 17:30 Lactulose (Lactulose) 20 gm PRN Q12HR PRN PO CONSTIPATION; Start 01/03/21 at 17:30 Bisacodyl (Dulcolax Supp) 10 mg PRN DAILY PRN [place] CONSTIPATION; Start 01/03/21 at 17:30 Enoxaparin Sodium (Lovenox 40mg Syringe) 40 mg Q24H SQ Last administered on 01/04/21at 16:37; Start 01/03/21 at 18:00 Albuterol Sulfate (Ventolin Neb Soln) 2.5 mg PRN Q6HRS PRN INH SHORTNESS OF BREATH; Start 01/03/21 at 17:30; Stop 01/03/21 at 18:02; Status DC Aspirin (Jack Aspirin) 325 mg DAILY PO Last administered on 01/05/21at 08:06; Start 01/04/21 at 09:00 Lisinopril (Prinivil) 5 mg DAILY PO ; Start 01/04/21 at 09:00; Stop 01/04/21 at 06:55; Status DC Pantoprazole Sodium (Protonix) 40 mg DAILYAC PO Last administered on 01/05/21at 08:07; Start 01/04/21 at 07:30 Potassium Chloride (Klor-Con) 10 meq BIDWMEALS PO Last administered on 01/05/21at 08:07; Start 01/03/21 at 18:00 Torsemide (Demadex) 20 mg BID PO Last administered on 01/05/21at 08:06; Start 01/03/21 at 21:00 Non-Formulary Medication (Fluticasone/ Salmeterol (Advair 500-50 Diskus)) 1 puff BID IH ; Start 01/03/21 at 21:00; Status UNV Non-Formulary Medication (Tiotropium [place] (Spiriva)) 18 mcg DAILY IH ; Start 01/04/21 at 09:00; Status UNV Non-Formulary Medication ([Albuterol Sulfate] ) 2.5 mg PRN Q2HR PRN NEB DYSPNEA; Start 01/03/21 at 17:30; Status UNV Albuterol/ Ipratropium (Duoneb) 3 ml RTQID NEB Last administered on 01/05/21at 11:31; Start 01/03/21 at 20:00 Albuterol Sulfate (Ventolin Neb Soln) 2.5 mg PRN Q2HR PRN NEB Shortness of Air; Start 01/03/21 at 18:00 Budesonide (Pulmicort) 0.5 mg RTBID NEB Last administered on 01/05/21at 07:31; Start 01/03/21 at 20:00 Doxycycline Hyclate (Vibra-Tab) 100 mg BID PO ; Start 01/04/21 at 09:00; Stop at 18:52; Status DC Methylprednisolone Sodium Succinate (SOLU-Medrol 125MG VIAL) 125 mg Q8HRS IV Last administered on 01/04/21at 05:36; Start 01/03/21 at 19:00; Stop 01/04/21 at 09:42; Status DC Furosemide (Lasix) 40 mg BID92 PEG Last administered on 01/05/21at 08:06; Start 01/03/21 at 18:45 Azithromycin (Zithromax) 500 mg DAILY PO Last administered on 01/05/21at 08:06; Start 01/04/21 at 09:00; Stop 01/05/21 at 09:01; Status DC Ceftriaxone Sodium (Rocephin) 1 gm Q24H IVP Last administered on 01/04/21at 16:3 4; Start 01/04/21 at 09:00 Insulin Human Lispro (HumaLOG) 0-7 UNITS TIDWMEALS SQ Last administered on 01/05/21at 11:46; Start 01/04/21 at 08:00 Dextrose (Dextrose 50%-Water Syringe) 12.5 gm PRN Q15MIN PRN IV SEE COMMENTS; Start 01/03/21 at 19:00 Insulin Glargine (Lantus Syringe) 10 unit QHS SQ Last administered on 01/04/21at 21:23; Start 01/03/21 at 21:00 Influenza Virus Vaccine Quadrival (Fluzone Quad Syringe) 0.5 ml ONCE ONCE VAX IM Last administered on 01/04/21at 16:42; Start 01/04/21 at 09:00; Stop 01/04/21 at 09:01; Status DC Furosemide (Lasix) 40 mg 1X ONCE IVP Last administered on 01/04/21at 10:47; Start 01/04/21 at 09:45; Stop 01/04/21 at 09:46; Status DC Methylprednisolone Sodium Succinate (SOLU-Medrol 40MG VIAL) 60 mg Q8HRS IV ; Start 01/04/21 at 10:00; Stop 01/04/21 at 09:52; Status DC Methylprednisolone Sodium Succinate (SOLU-Medrol 40MG VIAL) 60 mg Q8HRS IV Last administered on 01/05/21at 05:04; Start 01/04/21 at 14:00 Lactobacillus Rhamnosus (Culturelle) 1 cap BID PO Last administered on 01/05/21at 08:06; Start 01/04/21 at 21:00 Furosemide (Lasix) 40 mg 1X ONCE IVP Last administered on 01/05/21at 11:43; Start 01/05/21 at 11:00; Stop 01/05/21 at 11:01; Status DC Active Scripts Active Protonix (Pantoprazole Sodium) 40 Mg Tablet.dr 40 Mg PO DAILY Prednisone 20 Mg Tablet 20 Mg PO DAILY [Albuterol Sulfate] 2.5 MG/3 ML Nebu 2.5 Mg NEB PRN Q2HR PRN Reported Glyxambi 25 mg-5 mg Tablet (Empagliflozin/Linagliptin) 1 Each Tablet 1 Each PO DAILY Senna Laxative (Sennosides) 8.6 Mg Tablet 8.6 Mg PO HS Proair Hfa Inhaler (Albuterol Sulfate) 8.5 Gm Hfa.aer.ad 1 Puff INH PRN Q6HRS PRN Advair 500-50 Diskus (Fluticasone/Salmeterol) 1 Each Disk.w.dev 1 Puff IH BID Aspirin 325 Mg Tablet 325 Mg PO DAILY Metformin Hcl Er (Metformin Hcl) 500 Mg Tab.er.24 500 Mg PO BID Potassium Chloride (Potassium Chloride) 10 Meq Capsule.er 10 Meq PO BID Lisinopril 5 Mg Tablet 10 Mg PO DAILY Glimepiride 4 Mg Tablet 4 Mg PO BID Torsemide 20 Mg Tablet 20 Mg PO BID Spiriva (Tiotropium [place]) 18 Mcg Cap.w.dev 18 Mcg IH DAILY Vitals/I & O Vital Sign - Last 24 Hours 01/04/21 01/04/21 01/04/21 01/04/21 15:00 15:40 20:00 20:13 Temp 97.6 97.6 Pulse 95 Resp 22 B/P (MAP) 118/67 (84) Pulse Ox 96 98 O2 Delivery BiPAP/CPAP BiPAP/CPAP BiPAP/CPAP O2 Flow Rate 8.0 01/04/21 01/04/21 01/04/21 01/04/21 20:51 21:00 22:21 23:57 Temp 96.6 96.8 96.6 96.8 Pulse 88 79 Resp 16 18 B/P (MAP) 105/63 (77) 110/68 (82) Pulse Ox 90 92 92 O2 Delivery BiPAP/CPAP Bi-pap BiPAP/CPAP BiPAP/CPAP 01/05/21 01/05/21 01/05/21 01/05/21 00:38 03:00 03:58 05:08 Temp 97.6 97.6 Pulse 85 70 Resp 18 20 B/P (MAP) 118/67 (84) Pulse Ox 93 91 93 97 O2 Delivery BiPAP/CPAP BiPAP/CPAP BiPAP/CPAP BiPAP/CPAP 01/05/21 01/05/21 01/05/21 01/05/21 07:00 07:32 08:00 08:00 Temp 95.7 95.7 Pulse 82 Resp 22 B/P (MAP) 135/73 (93) Pulse Ox 99 100 O2 Delivery BiPAP/CPAP BiPAP/CPAP Bi-pap O2 Flow Rate 8.0 8.0 01/05/21 01/05/21 11:00 11:32 Temp 95.8 95.8 Pulse 96 Resp 24 B/P (MAP) 116/74 (88) Pulse Ox 95 93 O2 Delivery BiPAP/CPAP O2 Flow Rate 8.0 Intake and Output 01/04/21 01/04/21 01/05/21 15:00 23:00 07:00 Intake Total 1400 ml 1000 ml 600 ml Output Total 1950 ml 1675 ml 1350 ml Balance -550 ml -675 ml -750 ml Justicifation of Admission Dx: Justifications for Admission: Justification of Admission Dx: Yes Respiratory Failure: Severe Resp Distress KAMILA FLORES MD Jan 05, 2021 12:31
--- NOTE | 2021-01-05 14:16 | RAD ---
Ultrasound the abdomen complete. HISTORY: Abdominal pain, ascites Ultrasound was used to evaluate the abdomen. Pancreas is poorly visualized. Liver is incompletely thalia luated. A focal lesion is not identified. There is flow in the portal vein with color imaging. Liver is mildly echogenic fatty infiltration is suggested. Right kidney is 12.7 cm in length without a mass or hydronephrosis. Patient's had a cholecystectomy. Common duct was normal measuring 4 mm. Left kidn ey is 12.7 cm in length without a mass or hydronephrosis. Spleen was poorly, upper normal in size. As cites was not demonstrated. Aorta was poorly visualized. IVC at the liver was normal. IMPRESSION: 1. Hepatomegaly with increased echogenicity possible fatty liver change. 2. No ascites demonstrated. 3. Poor visualization of the pancreas and aorta. 4. Previous cholecystectomy, common duct not enlarged. 5. Spleen upper normal in size. Electronically signed by: Shahbaz Pelayo MD (01/05/2021 2:13 PM) [facility]
[2021-01-05 15:00] VITALS: BP 133/99
[2021-01-05] MEDS: ENOXAPARIN 40 MG/0.4 ML SYRINGE. SQ SCH (16:38)
[2021-01-05 19:35] VITALS: BP 131/71
[2021-01-05] MEDS: INSULIN GLARGINE SYRINGE. SQ SCH (20:12)
[2021-01-05 22:55] LABS: MAGNESIUM 2.4 mg/dL (1.8-2.4)
[2021-01-05 23:12] VITALS: BP 127/76
[2021-01-06 03:00] VITALS: BP 123/73
[2021-01-06] MEDS: methylPREDNISolone SOD SUCC PF 40 MG/ML VIAL. IV SCH ×2 (05:31→13:23)
[2021-01-06 07:28] VITALS: BP 131/80
[2021-01-06] MEDS: INSULIN LISPRO 300 UNITS/3 ML VIAL. SQ SCH ×2 (08:00→12:13)
[2021-01-06] MEDS: IPRATRPIUM/ALBUTEROL 0.5/2.5MG 3 ML NEBU. NEB SCH ×3 (08:27→15:49)
[2021-01-06] MEDS: BUDESONIDE 0.5 MG/2 ML NEBU. NEB SCH (08:27)
[2021-01-06] MEDS: TORSEMIDE 20 MG TABLET. PO SCH (08:46)
[2021-01-06] MEDS: PANTOPRAZOLE 40 MG TABLET.DR. PO SCH (08:46)
[2021-01-06] MEDS: POTASSIUM CHLORIDE 10 MEQ TABLET.ER. PO SCH (08:46)
[2021-01-06] MEDS: SENNOSIDES/DOCUSATE 8.6/50MG TABLET. PO SCH (08:46)
[2021-01-06] MEDS: ASPIRIN 325 MG TABLET PO SCH (08:46)
[2021-01-06] MEDS: LACTOBACILLUS RHAMNOSUS GG 1 CAPSULE. PO SCH (08:46)
[2021-01-06] MEDS: FUROSEMIDE 40 MG/4 ML ORAL SOLUTION. PEG SCH ×2 (08:47→13:23)
[2021-01-06] MEDS: cefTRIAXone IV Push 1 GM VIAL. IVP SCH (08:47)
[2021-01-06] MEDS ORDERED: predniSONE 20 MG TABLET PO SCH (09:00)
--- NOTE | 2021-01-06 10:39 | PDOC ---
PULMONARY PROGRESS NOTES DATE: 01/06/21 TIME: 10:37 Subjective remains off bipap, 8 litres canula feels better Vitals Vital Signs Date Time Temp Pulse Resp B/P (MAP) Pulse Ox O2 Delivery O2 Flow Rate FiO2 01/06/21 08:28 97 BiPAP/CPAP 01/06/21 07:28 97.8 78 20 131/80 (97) 97.8 01/05/21 20:10 10.0 General: Alert, No acute distress Lungs: Other (decrease bs) Cardiovascular: S1, S2 Abdomen: Soft, Non-tender Extremities: No Edema Labs Laboratory Tests Test 01/04/21 11:10 01/04/21 16:34 01/04/21 20:44 01/05/21 07:37 Glucose (Fingerstick) 177 mg/dL (70-99) 159 mg/dL (70-99) 167 mg/dL (70-99) 140 mg/dL (70-99) Test 01/05/21 11:14 01/05/21 16:30 01/05/21 20:02 01/05/21 22:30 Glucose (Fingerstick) 172 mg/dL (70-99) 130 mg/dL (70-99) 196 mg/dL (70-99) Potassium Level 4.0 mmol/L (3.5-5.1) Magnesium Level 2.4 mg/dL (1.8-2.4) Test 01/06/21 07:39 Glucose (Fingerstick) 127 mg/dL (70-99) Laboratory Tests Test 01/05/21 11:14 01/05/21 16:30 01/05/21 20:02 01/05/21 22:30 Glucose (Fingerstick) 172 mg/dL (70-99) 130 mg/dL (70-99) 196 mg/dL (70-99) Potassium Level 4.0 mmol/L (3.5-5.1) Magnesium Level 2.4 mg/dL (1.8-2.4) Test 01/06/21 07:39 Glucose (Fingerstick) 127 mg/dL (70-99) Medications Active Scripts Medications Dose Route/Sig Max Daily Dose Days Date Category Glyxambi 25 mg-5 mg Tablet (Empagliflozin/Linagliptin) 1 Each Tablet 1 Each PO DAILY 01/03/21 Reported Senna Laxative (Sennosides) 8.6 Mg Tablet 8.6 Mg PO HS 01/03/21 Reported Protonix (Pantoprazole Sodium) 40 Mg Tablet.dr 40 Mg PO DAILY 09/26/14 Rx Prednisone 20 Mg Tablet 20 Mg PO DAILY 09/26/14 Rx [Albuterol Sulfate] 2.5 MG/3 ML Nebu 2.5 Mg NEB PRN Q2HR PRN 09/26/14 Rx Proair Hfa Inhaler (Albuterol Sulfate) 8.5 Gm Hfa.aer.ad 1 Puff INH PRN Q6HRS PRN 09/22/14 Reported Advair 500-50 Diskus (Fluticasone/Salmeterol) 1 Each Disk.w.dev 1 Puff IH BID 09/22/14 Reported Aspirin 325 Mg Tablet 325 Mg PO DAILY 11/26/13 Reported Metformin Hcl Er (Metformin Hcl) 500 Mg Tab.er.24 500 Mg PO BID 11/26/13 Reported Potassium Chloride (Potassium Chloride) 10 Meq Capsule.er 10 Meq PO BID 11/26/13 Reported Lisinopril 5 Mg Tablet 10 Mg PO DAILY 11/26/13 Reported Glimepiride 4 Mg Tablet 4 Mg PO BID 11/26/13 Reported Torsemide 20 Mg Tablet 20 Mg PO BID 11/26/13 Reported Spiriva (Tiotropium [place]) 18 Mcg Cap.w.dev 18 Mcg IH DAILY 11/26/13 Reported Impression . 1. Acute on chronic hypoxic and hypercapnic respiratory failure secondary to multifactorial etiologies including acute exacerbation of chronic obstructive pulmonary disease, [id number] right heart failure Negative for COVID-19 viral infection. 2. Underlying severe obstructive airway disease with ongoing tobaccoism. He is on home oxygen continuously at 4-6 liters. 3. Obstructive sleep apnea, obesity hypoventilation syndrome, on home BiPAP. 4. Leukopenia, could be viral, neg COVID-19 infection. 5. Influenza screen negative. 6. Abnormal CT chest with no evidence of pulmonary embolism, but faint ground-glass infiltrates bilaterally. This could be secondary to multifactorial etiologies including possible viral infection, possible alveolitis and also could be related to mild interstitial edema. Plan . 1. We will continue present canula, wean FIO2 2. Continue empiric antibiotics. 3. Taper steroids. 4. Continue nebulizers with albuterol and budesonide. 5. Lovenox for DVT prophylaxis. 6. Neg for COVID infection. 7. Diuresis 8. Discussed with RN. can go home, Pt has bipap and home O2 IRAIS HICKS MD Jan 06, 2021 10:39
[2021-01-06 11:00] VITALS: BP 138/76
[2021-01-06 15:00] VITALS: BP 139/79
--- NOTE | 2021-01-06 15:19 | DISCH ---
DISCHARGE INSTRUCTIONS Condition on Discharge Condition on Discharge: Stable Activity After Discharge Activity Instructions for Disc: No restrictions Driving Instructions after Dis: Do not drive today Diet after Discharge Diet after Discharge: Cardiac, Diabetic No Calorie Level Liquid Texture: Thin Liquid Wound Incision Care Wound/Incision Care: No wound care needed Checks after Discharge Checks after discharge: Check blood sugar, ac/hs Contacting the DR. after DC Call your doctor for: If your condition worsens Follow-Up Follow up with: , PCP within 2 weeks of discharge, CBC, CMP at time of visit Follow Up With: Pulmonology as needed Treatment/Equipment after DC Adaptive Equipment Issued: None Discharge Respiratory Equipmen: Oxygen, CPAP LEEROY LUIS MD Jan 06, 2021 15:19
[2021-01-06] MEDS ORDERED: PRED-220 PO (15:41)
[2021-01-06] MEDS ORDERED: PRED5TAB PO (15:41)
[2021-01-06] MEDS ORDERED: PRED20TA PO (15:41)
--- NOTE | 2021-01-06 16:18 | NUR ---
Pt left unit at approx 1615 by wheelchair via private vehicle. Pt's IV removed without complication, VSS. Discharge paperwork discussed and sent with pt at time of discharge.
[2021-01-09] MEDS ORDERED: predniSONE 10 MG TABLET PO SCH (09:00)
--- NOTE | 2021-01-09 16:34 | PDOC3 ---
[facility]-Discharge Summary Date of Admission: Date of Admission: Jan 03, 2021 Date of Discharge: Date of Discharge: Jan 06, 2021 Discharge Diagnosis: Discharge Diagnosis: Acute COPD exacerbation secondary to pneumonic process History of chronic congestive heart failure diastolic dysfunction Essential hypertension Diabetes mellitus type 2 Overweight with a BMI of 28 Elevated BNP most likely secondary to fluid overload Hospital Course: Hospital Course: 55-year-old gentleman with past medical history of hypertension diabetes mellitus type 2 COPD and chronic congestive heart failure with diastolic dysfunction who was in his usual state of health until approximately 2 to 3 days prior to his admission when he started noticing dyspnea that started upon exertion and has subsequently progressed to dyspnea at rest. The patient denies at the present time chest pain no palpitations the patient denies fever chills diaphoresis no sick contacts no coughing sneezing headache no generalized malaise reported. Patient denies any contact with COVID-19 infected people. He has not had changes to his medications no increase salt in his diet. The other other complaint was bloating on his lower abdomen and he suffers from chronic lower extremity edema for which he uses compression stockings. He denies not adherence to his medications. He came to the emergency department due to the progressive nature of his dyspnea. He was evaluated in the emergency department and found to have an elevated BNP and a CAT scan with some diffuse infiltrates. Patient is being admitted for further evaluation and treatment. At the time of my evaluation patient is using accessory muscles he is able to speak despite the BiPAP feels a little better compared to admission but still quite short of breath. Plan of care has been explained in detail all of his concerns were addressed to the best of my ability. 01/04: No acute events reported overnight, case discussed with nursing staff patient in no acute distress no complaints during my visit 01/05: Patient with no acute events reported overnight, patient still complaining of abdominal distention, early satiety but his concern is that he feels quite bloated in his lower abdomen, he reports constipation By day of discharge, patient was weaned off of BiPAP comfortably and able to tolerate 8L NC. Both equipment he is able to use at home and has available. The rest of his hospital course was uneventful. Disposition: Disposition/Orders: D/C to Home Activity: Activity: Resume previous activity Diet: Diet: Cardiac Medications: Home Meds Active Scripts Prednisone (PREDNISONE) 5 Mg Tablet, 5 MG PO DAILY for copd for 3 Days, #3 TAB Prov:LEEROY LUIS MD 01/06/21 Prednisone (PREDNISONE ) 10 Mg Tablet, 10 MG PO DAILY for copd for 3 Days, #3 TAB Prov:LEEROY LUIS MD 01/06/21 Prednisone (PREDNISONE) 20 Mg Tablet, 20 MG PO DAILY for copd for 3 Days, #3 TAB Prov:LEEROY LUIS MD 01/06/21 Prednisone (PREDNISONE ) 10 Mg Tablet, 30 MG PO DAILY for copd for 3 Days, #9 TAB Prov:LEEROY LUIS MD 01/06/21 Prednisone (PREDNISONE) 20 Mg Tablet, 40 MG PO DAILY for copdexac for 3 Days, #6 TAB Prov:LEEROY LUIS MD 01/06/21 Pantoprazole Sodium (PROTONIX ) 40 Mg Tablet.dr, 40 MG PO DAILY, #30 TAB 6 Refills Prov:Génesis CESAR MD 09/26/14 [Albuterol Sulfate] 2.5 MG/3 ML NEBU No Conflict Check, 2.5 MG NEB PRN Q2HR PRN for DYSPNEA, #120 3 Refills Prov:Génesis CESAR MD 09/26/14 Reported Medications Empagliflozin/Linagliptin (Glyxambi 25 mg-5 mg Tablet) 1 Each Tablet, 1 EACH PO DAILY for dm, TAB 01/03/21 Sennosides (SENNA LAXATIVE) 8.6 Mg Tablet, 8.6 MG PO HS for constipation, TAB 01/03/21 Albuterol Sulfate (PROAIR HFA INHALER) 8.5 Gm Hfa.aer.ad, 1 PUFF INH PRN Q6HRS PRN for SHORTNESS OF BREATH, INHALER 0 Refills 09/22/14 Fluticasone/Salmeterol (ADVAIR 500-50 DISKUS) 1 Each Disk.w.dev, 1 PUFF IH BID, #1 INHALER 5 Refills 09/22/14 Aspirin (ASPIRIN) 325 Mg Tablet, 325 MG PO DAILY 11/26/13 Metformin Hcl (METFORMIN HCL ER) 500 Mg Tab.er.24, 500 MG PO BID 11/26/13 Potassium Chloride (POTASSIUM CHLORIDE ) 10 Meq Capsule.er, 10 MEQ PO BID 11/26/13 Lisinopril (LISINOPRIL) 5 Mg Tablet, 10 MG PO DAILY for htn 11/26/13 Glimepiride (GLIMEPIRIDE) 4 Mg Tablet, 4 MG PO BID 11/26/13 Torsemide (TORSEMIDE) 20 Mg Tablet, 20 MG PO BID 11/26/13 Tiotropium [place] (SPIRIVA) 18 Mcg Cap.w.dev, 18 MCG IH DAILY 11/26/13 Discontinued Scripts Prednisone (PREDNISONE) 20 Mg Tablet, 20 MG PO DAILY, #30 TAB Prov:Génesis CESAR MD 09/26/14 Scheduled Aspirin (Aspirin), 325 MG PO DAILY, (Reported) Empagliflozin/Linagliptin (Glyxambi 25 mg-5 mg Tablet), 1 EACH PO DAILY, (Reported) Fluticasone/Salmeterol (Advair 500-50 Diskus), 1 PUFF IH BID, (Reported) Glimepiride (Glimepiride), 4 MG PO BID, (Reported) Lisinopril (Lisinopril), 10 MG PO DAILY, (Reported) Metformin Hcl (Metformin Hcl Er), 500 MG PO BID, (Reported) Pantoprazole Sodium (Protonix ), 40 MG PO DAILY Potassium Chloride (Potassium Chloride ), 10 MEQ PO BID, (Reported) Prednisone (Prednisone), 40 MG PO DAILY Prednisone (Prednisone ), 30 MG PO DAILY Prednisone (Prednisone), 20 MG PO DAILY Prednisone (Prednisone ), 10 MG PO DAILY Prednisone (Prednisone), 5 MG PO DAILY Sennosides (Senna Laxative), 8.6 MG PO HS, (Reported) Tiotropium [place] (Spiriva), 18 MCG IH DAILY, (Reported) Torsemide (Torsemide), 20 MG PO BID, (Reported) Scheduled PRN Albuterol Sulfate (Proair Hfa Inhaler), 1 PUFF INH PRN Q6HRS PRN for SHORTNESS OF BREATH, (Reported) [Albuterol Sulfate], 2.5 MG NEB PRN Q2HR PRN for DYSPNEA Discontinued Medications Prednisone (Prednisone), 20 MG PO DAILY Total Time: Total Time: Total time spent was 45 minutes in preparing scripts, discharge planning with SW and RN, and preparing this discharge summary. Patient seen and examined on day of discharge. Justicifation of Admission Dx: Justifications for Admission: Justification of Admission Dx: Yes Respiratory Failure: Severe Resp Distress LEEROY LUIS MD Jan 09, 2021 16:34
[2021-01-12] MEDS ORDERED: predniSONE 20 MG TABLET PO SCH (09:00)
[2021-01-15] MEDS ORDERED: predniSONE 10 MG TABLET PO SCH (09:00)
[2021-01-18] MEDS ORDERED: predniSONE 5 MG TABLET PO SCH (09:00)
== END 2021-01-06 16:20 | disposition home or self-care (01) | DRG 291 ==
LOC: ER 14:43 → 6 SOUTH 17:20
PROVIDERS: ADMIT Internal Medicine; ATTEND Internal Medicine
PROC: 5A09357 Assistance with Respiratory Ventilation, Less than 24 Consecutive Hours, Continuous Positive Airway Pressure (ICD-10-PCS; principal; 2021-01-03)
PROC: 5A09357 Assistance with Respiratory Ventilation, Less than 24 Consecutive Hours, Continuous Positive Airway Pressure (ICD-10-PCS; 2021-01-04)
PROC: 5A09357 Assistance with Respiratory Ventilation, Less than 24 Consecutive Hours, Continuous Positive Airway Pressure (ICD-10-PCS; 2021-01-05)
PROC: 5A09357 Assistance with Respiratory Ventilation, Less than 24 Consecutive Hours, Continuous Positive Airway Pressure (ICD-10-PCS; 2021-01-06)
DX: I11.0 Hypertensive heart disease with heart failure (principal); J96.21 Acute and chronic respiratory failure with hypoxia; J96.22 Acute and chronic respiratory failure with hypercapnia; J44.1 Chronic obstructive pulmonary disease with (acute) exacerbation; E66.2 Morbid (severe) obesity with alveolar hypoventilation; I50.813 Acute on chronic right heart failure; I50.32 Chronic diastolic (congestive) heart failure; K21.9 Gastro-esophageal reflux disease without esophagitis; F17.200 Nicotine dependence, unspecified, uncomplicated; D72.819 Decreased white blood cell count, unspecified; Z20.822 Contact with and (suspected) exposure to COVID-19; Z90.49 Acquired absence of other specified parts of digestive tract; E11.42 Type 2 diabetes mellitus with diabetic polyneuropathy; I27.81 Cor pulmonale (chronic); Z68.28 Body mass index [BMI] 28.0-28.9, adult; Z99.81 Dependence on supplemental oxygen
CPT/HCPCS: 36415; 36600; 71275; 74177; 76700; 80048; 80053; 81001; 82553; 82728; 82805; 82962; 83605; 83615; 83735; 83880; 84132; 84145; 84484; 85007; 85025; 85379; 87040; 87449; 87804; 90471; 90686; 93005; 94640; 94660; 96374; J0456; J0696; J1100; J1650; J1815; J1940; J2920; J2930; U0003; 99291-25; G0378; J7626

== ENCOUNTER 2021-01-31 21:17 | Observation (INO) | payer MEDICARE ==
[~2021-01-31] VITALS: Ht 188 cm; Wt 117.4 kg
[~2021-01-31 21:17] MED LIST changes: +EMPA1TAB PO; +PRED-220 PO; +PRED5TAB PO; +SENN8.6T11 PO
[2021-01-31] MEDS ORDERED: MORPHINE SULFATE 4 MG/ML VIAL. IV ONE (21:45)
[2021-01-31] MEDS ORDERED: IV NORMAL SALINE 1000ML BAG 1,000 ML IV SCH (21:45)
[2021-01-31] MEDS ORDERED: ONDANSETRON PF 4 MG/2 ML VIAL. ONE (22:09)
--- NOTE | 2021-01-31 22:09 | RAD ---
XR CHEST 1V Clinical Indication: Reason: shortness of breath Comparison: AP chest June 14, 2017. Findings: The cardiomediastinal silhouette is normal. Pulmonary arteries are prominent. Lungs are clear. There is no pneumothorax. No pleural effusion is appreciated. No acute bone abnormality. IMPRESSION: No acute cardiopulmonary process. Electronically signed by: Neftali Escudero MD (01/31/2021 10:07 PM) [facility]Pa
[2021-01-31] MEDS ORDERED: ONDANSETRON PF 4 MG/2 ML VIAL. IVP ONE (22:15)
[2021-01-31 22:16] LABS: BASO # 0.1 x10^3/uL (0.0-0.2); BASO % 1 % (0-3); EOS # 0.1 x10^3/uL (0.0-0.7); EOS % 1 % (0-3); HEMOGLOBIN 17.1 g/dL (13.0-17.5); LYMPH # 2.2 x10^3/uL (1.0-4.8); LYMPH % 27 % (24-48); MEAN CORPUSCULAR HEMOGLOBIN 31 pg (25-35); MEAN CORPUSCULAR HGB CONC 33 g/dL (31-37); MEAN CORPUSCULAR VOLUME 93 fL (79-100); MONO # 0.8 x10^3/uL (0.0-1.1); MONO % 9 % (0-9); NEUT # 5.3 x10^3/uL (1.8-7.7); NEUT % 63 % (31-73); PLATELET COUNT 185 x10^3/uL (140-400); RED BLOOD COUNT 5.58 x10^6/uL (4.30-5.70); WHITE BLOOD COUNT 8.5 x10^3/uL (4.0-11.0)
[2021-01-31 22:24] LABS: CALCIUM 8.7 mg/dL (8.5-10.1); CREATININE 0.8 mg/dL (0.7-1.3); GFR 100.7
[2021-01-31 22:31] LABS: ALBUMIN 3.3 g/dL (3.4-5.0); ALBUMIN/GLOBULIN RATIO 0.9 (1.0-1.7); TOTAL BILIRUBIN 0.5 mg/dL (0.2-1.0); TOTAL PROTEIN 6.9 g/dL (6.4-8.2)
[2021-01-31 23:26] LABS: BILIRUBIN,URINE NEGATIVE (NEG); CLARITY,URINE CLEAR; COLOR,URINE YELLOW; NITRITE,URINE NEGATIVE (NEG); PROTEIN,URINE NEGATIVE (NEG-TRACE); UROBILINOGEN,URINE 0.2 mg/dL (0.2 mg/dL)
[2021-01-31 23:41] LABS: BACTERIA,URINE 0 /HPF (0-FEW); WBC,URINE 0 /HPF (0-4)
--- NOTE | 2021-01-31 23:56 | PHYS DOC ---
Past Medical History Past Medical History: CHF, COPD, Diabetes-Type II Additional Past Medical Histor: BALTA, obesity and chronic back pain Past Surgical History: Cholecystectomy, Other Additional Past Surgical Histo: vasectomy Smoking Status: Current Every Day Smoker Additional Information: 11/30 PpD Alcohol Use: None Drug Use: None Adult General Chief Complaint Chief Complaint: ABDOMINAL PAIN HPI HPI Patient is a 55 year old male with past medical history of hypertension, hyperlipidemia and diabetes now presenting to emergency department complaining of new onset of epigastric abdominal pain. Patient states approxi-3 hours prior to arrival he started having new burning pain in the midepigastric region which radiates in a bandlike sensation around the abdomen on both sides. Denies any associated back pain. Denies any associated nausea, vomiting, fever, chills, chest pains or shortness of breath. No diarrhea. Denies any history of similar symptoms. Review of Systems Review of Systems Constitutional: Denies fever or chills [] Eyes: Denies change in visual acuity, redness, or eye pain [] HENT: Denies nasal congestion or sore throat [] Respiratory: Denies cough or shortness of breath [] Cardiovascular: No additional information not addressed in HPI [] GI: Denies abdominal pain, nausea, vomiting, bloody stools or diarrhea [] : Denies dysuria or hematuria [] Musculoskeletal: Denies back pain or joint pain [] Integument: Denies rash or skin lesions [] Neurologic: Denies headache, focal weakness or sensory changes [] Endocrine: Denies polyuria or polydipsia [] All other systems were reviewed and found to be within normal limits, except as documented in this note. Current Medications Current Medications Current Medications Medications (Trade) Dose Ordered Sig/Theresa Start Time Stop Time Status Last Admin Dose Admin Morphine Sulfate (Morphine Sulfate) 4 mg 1X ONCE 01/31/21 21:45 01/31/21 21:46 DC 01/31/21 22:11 4 MG Ondansetron HCl (Zofran) 4 mg STK-MED ONCE 01/31/21 22:09 01/31/21 22:09 DC Sodium Chloride 1,000 ml @ 1,000 mls/hr Q1H 01/31/21 21:45 01/31/21 22:44 DC 01/31/21 22:11 1,000 MLS/HR Allergies Allergies Allergies Coded Allergies Type Severity Reaction Last Updated Verified No Known Drug Allergies 02/15/15 No Physical Exam Physical Exam Constitutional: Well developed, well nourished, no acute distress, non-toxic estrellita earance. [] HENT: Normocephalic, atraumatic, bilateral external ears normal, oropharynx moist, no oral exudates, nose normal. [] Eyes: PERRLA, EOMI, conjunctiva normal, no discharge. [] Neck: Normal range of motion, no tenderness, supple, no stridor. [] Cardiovascular:Heart rate regular rhythm, no murmur [] Lungs & Thorax: Bilateral breath sounds clear to auscultation [] Abdomen: Bowel sounds normal, soft, no tenderness, no masses, no pulsatile masses. [] Skin: Warm, dry, no erythema, no rash. [] Back: No tenderness, no CVA tenderness. [] Extremities: No tenderness, no cyanosis, no clubbing, ROM intact, no edema. [] Neurologic: Alert and oriented X 3, normal motor function, normal sensory function, no focal deficits noted. [] Psychologic: Affect normal, judgement normal, mood normal. [] Current Patient Data Vital Signs Vital Signs Date Time Temp Pulse Resp B/P (MAP) Pulse Ox O2 Delivery O2 Flow Rate FiO2 01/31/21 23:00 96 13 109/60 (76) 96 Nasal Cannula 6.0 01/31/21 21:20 98.2 98.2 Lab Values Laboratory Tests Test 01/31/21 22:10 01/31/21 23:20 White Blood Count 8.5 x10^3/uL (4.0-11.0) Red Blood Count 5.58 x10^6/uL (4.30-5.70) Hemoglobin 17.1 g/dL (13.0-17.5) Hematocrit 52.0 % (39.0-53.0) Mean Corpuscular Volume 93 fL (79-100) Mean Corpuscular Hemoglobin 31 pg (25-35) Mean Corpuscular Hemoglobin Concent 33 g/dL (31-37) Red Cell Distribution Width 15.0 % (11.5-14.5) H Platelet Count 185 x10^3/uL (140-400) Neutrophils (%) (Auto) 63 % (31-73) Lymphocytes (%) (Auto) 27 % (24-48) Monocytes (%) (Auto) 9 % (0-9) Eosinophils (%) (Auto) 1 % (0-3) Basophils (%) (Auto) 1 % (0-3) Neutrophils # (Auto) 5.3 x10^3/uL (1.8-7.7) Lymphocytes # (Auto) 2.2 x10^3/uL (1.0-4.8) Monocytes # (Auto) 0.8 x10^3/uL (0.0-1.1) Eosinophils # (Auto) 0.1 x10^3/uL (0.0-0.7) Basophils # (Auto) 0.1 x10^3/uL (0.0-0.2) Sodium Level 138 mmol/L (136-145) Potassium Level 4.0 mmol/L (3.5-5.1) Chloride Level 99 mmol/L (98-107) Carbon Dioxide Level 35 mmol/L (21-32) H Anion Gap 4 (6-14) L Blood Urea Nitrogen 11 mg/dL (8-26) Creatinine 0.8 mg/dL (0.7-1.3) Estimated GFR (Cockcroft-Gault) 100.7 BUN/Creatinine Ratio 14 (6-20) Glucose Level 174 mg/dL (70-99) H Calcium Level 8.7 mg/dL (8.5-10.1) Total Bilirubin 0.5 mg/dL (0.2-1.0) Aspartate Amino Transferase (AST) 12 U/L (15-37) L Alanine Aminotransferase (ALT) 19 U/L (16-63) Alkaline Phosphatase 60 U/L (46-116) Creatine Kinase 64 U/L (39-308) Troponin I Quantitative < 0.017 ng/mL (0.000-0.055) Total Protein 6.9 g/dL (6.4-8.2) Albumin 3.3 g/dL (3.4-5.0) L Albumin/Globulin Ratio 0.9 (1.0-1.7) L Lipase 281 U/L (73-393) Urine Collection Type Unknown Urine Color Yellow Urine Clarity Clear Urine pH 5.0 (<5.0-8.0) Urine Specific [place] 1.020 (1.000-1.030) Urine Protein Negative mg/dL (NEG-TRACE) Urine Glucose (UA) >=1000 mg/dL (NEG) Urine Ketones (Stick) Negative mg/dL (NEG) Urine Blood Negative (NEG) Urine Nitrite Negative (NEG) Urine Bilirubin Negative (NEG) Urine Urobilinogen Dipstick 0.2 mg/dL (0.2 mg/dL) Urine Leukocyte Esterase Negative (NEG) Urine RBC 1-2 /HPF (0-2) Urine WBC 0 /HPF (0-4) Urine Squamous Epithelial Cells Few /LPF Urine Bacteria 0 /HPF (0-FEW) Laboratory Tests 01/31/21 22:10 Laboratory Tests 01/31/21 22:10 EKG EKG Normal sinus rhythm however there is evidence of T wave inversion in V2 through V4. Intervals normal, no reciprocal changes. Radiology/Procedures Radiology/Procedures [] Course & Med Decision Making Course & Med Decision Making Pertinent Labs and Imaging studies reviewed. (See chart for details) 55M present emergency department with midepigastric abdominal pain which is raise concern for acute pancreatitis or other intra-abdominal infection. Based on the patient's medical history and age there is also significant concern for acute coronary syndrome. At this time will obtain ACS work-up and abdominal labs and lipase and reevaluate. Chest x-ray, EKG and labs reviewed. At this time there is no significant laboratory abnormality or patient does appear to have EKG changes which does raise concern for acute coronary syndrome. Patient is now resting comfortably without no significant changes. This time will admit the patient for serial troponins and telemetry monitoring with anticipated cardiology evaluation in the morning Dragon Disclaimer Dragon Disclaimer This electronic medical record was generated, in whole or in part, using a voice recognition dictation system. Departure Departure Impression: Primary Impression: Chest pain Disposition: ADMITTED INPT THIS HOSP Condition: GOOD Referrals: Génesis CESAR MD (PCP) BURAK CAMPA MD Jan 31, 2021 23:56
[2021-02-01] MEDS ORDERED: ONDANSETRON PF 4 MG/2 ML VIAL. IV PRN
[2021-02-01] MEDS ORDERED: MORPHINE SULFATE 4 MG/ML VIAL. IV PRN
[2021-02-01 00:52] VITALS: BP 131/79
[2021-02-01 03:30] VITALS: BP 134/88
[2021-02-01] MEDS ORDERED: IPRATRPIUM/ALBUTEROL 0.5/2.5MG 3 ML NEBU. NEB ONE (04:00)
[2021-02-01 05:50] LABS: BASO # 0.1 x10^3/uL (0.0-0.2); BASO % 1 % (0-3); EOS % 1 % (0-3); HEMATOCRIT 53.5 % (39.0-53.0); HEMOGLOBIN 17.2 g/dL (13.0-17.5); LYMPH # 1.7 x10^3/uL (1.0-4.8); LYMPH % 25 % (24-48); MEAN CORPUSCULAR HEMOGLOBIN 31 pg (25-35); MEAN CORPUSCULAR HGB CONC 32 g/dL (31-37); MEAN CORPUSCULAR VOLUME 95 fL (79-100); MONO # 0.5 x10^3/uL (0.0-1.1); MONO % 7 % (0-9); NEUT # 4.4 x10^3/uL (1.8-7.7); NEUT % 66 % (31-73); PLATELET COUNT 174 x10^3/uL (140-400); RED BLOOD COUNT 5.63 x10^6/uL (4.30-5.70); RED CELL DISTRIBUTION WIDTH 15.3 % (11.5-14.5); WHITE BLOOD COUNT 6.6 x10^3/uL (4.0-11.0)
[2021-02-01 06:21] LABS: CALCIUM 8.7 mg/dL (8.5-10.1); CREATININE 0.8 mg/dL (0.7-1.3); GFR 100.7; POTASSIUM 4.9 mmol/L (3.5-5.1)
[2021-02-01 07:00] VITALS: BP 136/78
[2021-02-01] MEDS: IPRATRPIUM/ALBUTEROL 0.5/2.5MG 3 ML NEBU. NEB SCH ×2 (07:18→11:18)
--- NOTE | 2021-02-01 08:22 | PDOC1 ---
History and Physical Date of Admission Date of Admission DATE: 02/01/21 TIME: 08:15 Identification/Chief Complaint Chief Complaint Epigastric pain Source Source: Patient History of Present Illness History of Present Illness Mr Pelayo is a 55 year old male with past medical history of BALTA on home BIPAP, COPD on 6L NCO2 at home, obesity, smoker 6 cigarettes per day, chronic back pain, hypertension, hyperlipidemia and diabetes on permanent disability now presenting to emergency department complaining of new onset of epigastric abdominal pain. Patient states approxi-3 hours prior to arrival he started having new burning pain in the midepigastric region which radiates in a bandlike sensation around the abdomen on both sides. He does note eating a taco salad 90 minutes to 2-1/2 hours prior to this episode. He is adentulous and notes that he tries to eat foods that are soft. Denies any associated back pain. Denies any associated nausea, vomiting, fever, chills, chest pains or shortness of breath. No diarrhea. Denies any history of similar symptoms. He does note previously seeing Dr. Deluca sccm administrator and has been stable. He also has seen GI for colonoscopy and EGD and was told he is diabetic gastroparesis previously started on erythromycin but insurance stopped paying for this. He has not followed up with GI since since last EGD required hospitalization afterwards due to his chronic hypoxic respiratory failure on 6 L of oxygen he prefers not to have repeat EGD. EKG normal sinus rhythm however there is evidence of T wave inversion in V2 through V4. Intervals normal, no reciprocal changes. Troponin x2 negative. Lipase 21, basic metabolic panel and CBC within normal laboratory limits. Admitted for observation Past Medical History Cardiovascular: CHF, HTN Pulmonary: COPD CENTRAL NERVOUS SYSTEM: Periperal neuropathy GI: GERD Heme/Onc: No pertinent hx Hepatobiliary: No pertinent hx Psych: No pertinent hx Rheumatologic: No pertinent hx Infectious disease: No pertinent hx Renal/: No pertinent hx Endocrine: Diabetes Past Surgical History Past Surgical History: Cholecystectomy, Other (vasectomy) Family History Family History: Cancer Social History Smoke: <1 pack per day ALCOHOL: none Drugs: None Current Problem List Problem List Problems Medical Problems: (1) Chest pain Status: Acute Current Medications Current Medications Current Medications Sodium Chloride 1,000 ml @ 1,000 mls/hr Q1H IV Last administered on 01/31/21at 22:11; Start 01/31/21 at 21:45; Stop 01/31/21 at 22:44; Status DC Morphine Sulfate (Morphine Sulfate) 4 mg 1X ONCE IV Last administered on 01/31/21at 22:11; Start 01/31/21 at 21:45; Stop 01/31/21 at 21:46; Status DC Ondansetron HCl (Zofran) 4 mg 1X ONCE IVP Last administered on 01/31/21at 22:11; Start 01/31/21 at 22:15; Stop 01/31/21 at 22:16; Status DC Ondansetron HCl (Zofran) 4 mg STK-MED ONCE .ROUTE ; Start 01/31/21 at 22:09; Stop 01/31/21 at 22:09; Status DC Ondansetron HCl (Zofran) 4 mg PRN Q8HRS PRN IV NAUSEA/VOMITING; Start 02/01/21 at 00:00; Stop 02/01/21 at 23:59 Morphine Sulfate (Morphine Sulfate) 4 mg PRN Q2HR PRN IV PAIN Last administered on 02/01/21at 07:10; Start 02/01/21 at 00:00; Stop 02/01/21 at 23:59 Albuterol/ Ipratropium (Duoneb) 3 ml RTQID NEB Last administered on 02/01/21at 07 :18; Start 02/01/21 at 08:00 Albuterol/ Ipratropium (Duoneb) 3 ml 1X ONCE NEB Last administered on 02/01/21at 04:00; Start 02/01/21 at 04:00; Stop 02/01/21 at 04:01; Status DC Active Scripts Active Protonix (Pantoprazole Sodium) 40 Mg Tablet.dr 40 Mg PO DAILY [Albuterol Sulfate] 2.5 MG/3 ML Nebu 2.5 Mg NEB PRN Q2HR PRN Reported Glyxambi 25 mg-5 mg Tablet (Empagliflozin/Linagliptin) 1 Each Tablet 1 Each PO DAILY Senna Laxative (Sennosides) 8.6 Mg Tablet 8.6 Mg PO HS Proair Hfa Inhaler (Albuterol Sulfate) 8.5 Gm Hfa.aer.ad 1 Puff INH PRN Q6HRS PRN Advair 500-50 Diskus (Fluticasone/Salmeterol) 1 Each Disk.w.dev 1 Puff IH BID Aspirin 325 Mg Tablet 325 Mg PO DAILY Metformin Hcl Er (Metformin Hcl) 500 Mg Tab.er.24 500 Mg PO BID Potassium Chloride (Potassium Chloride) 10 Meq Capsule.er 10 Meq PO BID Lisinopril 5 Mg Tablet 10 Mg PO DAILY Glimepiride 4 Mg Tablet 4 Mg PO BID Torsemide 20 Mg Tablet 20 Mg PO BID Spiriva (Tiotropium [place]) 18 Mcg Cap.w.dev 18 Mcg IH DAILY Allergies Allergies: Coded Allergies: No Known Drug Allergies (Unverified , 02/15/15) ROS General: YES: Fatigue, Malaise, Appetite; No: Chills, Night Sweats, Other PSYCHOLOGICAL ROS: No: Anxiety, Behavioral Disorder, Concentration difficultie, Decreased libido, Depression, Disorientation, Hallucinations, Hostility, Irritablity, Memory difficulties, Mood Swings, Obsessive thoughts, Physical abuse, Sexual abuse, Sleep disturbances, Suicidal ideation, Other Eyes: No Blurry vision, No Decreased vision, No Double vision, No Dry eyes, No Excessive tearing, No Eye Pain, No Itchy Eyes, No Loss of vision, No Photophobia, No Scotomata, No Uses contacts, No Uses glasses, No Other HEENT: No: Heacaches, Visual Changes, Hearing change, Nasal congestion, Nasal discharge, Oral lesions, Sinus pain, Sore Throat, Epistaxis, Sneezing, Snoring, Tinnitus, Vertigo, Vocal changes, Other ALLERGY AND IMMUNOLOGY: No: Hives, Insect Bite Sensitivity, Itchy/Watery Eyes, Nasal Congestion, Post Nasal Drip, Seasonal Allergies, Other Hematological and Lymphatic: No: Bleeding Problems, Blood Clots, Blood Transfusions, Brusing, Night Sweats, Pallor, Swollen Lymph Nodes, Other ENDOCRINE: No: Breast Changes, Galactorrhea, Hair Pattern Changes, Hot Flashes, Malaise/lethargy, Mood Swings, Palpitations, Polydipsia/polyuria, Skin Changes, Temperature Intolerance, Unexpected Weight Changes, Other Breast: No New/Changing Breast Lumps, No Nipple changes, No Nipple discharge, No Other Respiratory: No: Cough, Hemoptysis, Orthopnea, Pleuritic Pain, Shortness of breath, SOB with excertion, Sputum Changes, Stridor, Tachypnea, Wheezing, Other Cardiovascular: No Chest Pain, No Palpitations, No Orthopnea, No Paroxysmal N oc. Dyspnea, No Edema, No Lt Headedness, No Other Gastrointestinal: Yes Abdominal Pain; No Nausea, No Vomiting, No Diarrhea, No Constipation, No Melena, No Hematochezia, No Other Genitourinary: No Dysuria, No Frequency, No Incontinence, No Hematuria, No Retention, No Discharge, No Urgency, No Pain, No Flank Pain, No Other, No , No , No , No , No , No , No Musculoskeletal: No Gait Disturbance, No Joint Pain, No Joint Stiffness, No Joint Swelling, No Muscle Pain, No Muscular Weakness, No Pain In:, No Swelling In:, No Other Neurological: No Behavorial Changes, No Bowel/Bladder ControlChng, No Confusion, No Dizziness, No Gait Disturbance, No Headaches, No Impaired Coord/balance, No Memory Loss, No Numbness/Tingling, No Seizures, No Speech Problems, No Tremors, No Visual Changes, No Weakness, No Other Skin: No Dry Skin, No Eczema, No Hair Changes, No Lumps, No Mole Changes, No Mottling, No Nail Changes, No Pruritus, No Rash, No Skin Lesion Changes, No Other, No Acne Physical Exam General: Alert, Oriented X3, Cooperative, mild distress HEENT: Atraumatic, PERRLA, EOMI, Mucous membr. moist/pink, Other (A dentulous) Lungs: Clear to auscultation, Normal air movement Heart: S1S2, RRR, no thrills, no rubs, no gallops, no murmurs Abdomen: Normal bowel sounds, Soft, No tenderness, No hepatosplenomegaly, No masses Rectal Exam: not examined Extremities: No clubbing, No cyanosis, No edema, Normal pulses, No tenderness/swelling Skin: No rashes, No breakdown, No significant lesion Neuro: Normal gait, Normal speech, Strength at 5/5 X4 ext, Normal tone, Sensation intact, Cranial nerves 3-12 NL, Reflexes 2+ Psych/Mental Status: Mental status NL, Mood NL Vitals Vitals Vital Signs Date Time Temp Pulse Resp B/P (MAP) Pulse Ox O2 Delivery O2 Flow Rate FiO2 02/01/21 07:50 Nasal Cannula 6.0 02/01/21 07:40 95 02/01/21 07:10 20 02/01/21 03:30 98.1 100 134/88 (103) 98.1 Labs Labs Laboratory Tests Test 01/31/21 22:10 01/31/21 23:20 02/01/21 03:30 White Blood Count 8.5 x10^3/uL (4.0-11.0) 6.6 x10^3/uL (4.0-11.0) Red Blood Count 5.58 x10^6/uL (4.30-5.70) 5.63 x10^6/uL (4.30-5.70) Hemoglobin 17.1 g/dL (13.0-17.5) 17.2 g/dL (13.0-17.5) Hematocrit 52.0 % (39.0-53.0) 53.5 % (39.0-53.0) Mean Corpuscular Volume 93 fL (79-100) 95 fL (79-100) Mean Corpuscular Hemoglobin 31 pg (25-35) 31 pg (25-35) Mean Corpuscular Hemoglobin Concent 33 g/dL (31-37) 32 g/dL (31-37) Red Cell Distribution Width 15.0 % (11.5-14.5) 15.3 % (11.5-14.5) Platelet Count 185 x10^3/uL (140-400) 174 x10^3/uL (140-400) Neutrophils (%) (Auto) 63 % (31-73) 66 % (31-73) Lymphocytes (%) (Auto) 27 % (24-48) 25 % (24-48) Monocytes (%) (Auto) 9 % (0-9) 7 % (0-9) Eosinophils (%) (Auto) 1 % (0-3) 1 % (0-3) Basophils (%) (Auto) 1 % (0-3) 1 % (0-3) Neutrophils # (Auto) 5.3 x10^3/uL (1.8-7.7) 4.4 x10^3/uL (1.8-7.7) Lymphocytes # (Auto) 2.2 x10^3/uL (1.0-4.8) 1.7 x10^3/uL (1.0-4.8) Monocytes # (Auto) 0.8 x10^3/uL (0.0-1.1) 0.5 x10^3/uL (0.0-1.1) Eosinophils # (Auto) 0.1 x10^3/uL (0.0-0.7) 0.0 x10^3/uL (0.0-0.7) Basophils # (Auto) 0.1 x10^3/uL (0.0-0.2) 0.1 x10^3/uL (0.0-0.2) Sodium Level 138 mmol/L (136-145) 141 mmol/L (136-145) Potassium Level 4.0 mmol/L (3.5-5.1) 4.9 mmol/L (3.5-5.1) Chloride Level 99 mmol/L (98-107) 100 mmol/L (98-107) Carbon Dioxide Level 35 mmol/L (21-32) 36 mmol/L (21-32) Anion Gap 4 (6-14) 5 (6-14) Blood Urea Nitrogen 11 mg/dL (8-26) 11 mg/dL (8-26) Creatinine 0.8 mg/dL (0.7-1.3) 0.8 mg/dL (0.7-1.3) Estimated GFR (Cockcroft-Gault) 100.7 100.7 BUN/Creatinine Ratio 14 (6-20) Glucose Level 174 mg/dL (70-99) 115 mg/dL (70-99) Calcium Level 8.7 mg/dL (8.5-10.1) 8.7 mg/dL (8.5-10.1) Total Bilirubin 0.5 mg/dL (0.2-1.0) Aspartate Amino Transf (AST/SGOT) 12 U/L (15-37) Alanine Aminotransferase (ALT/SGPT) 19 U/L (16-63) Alkaline Phosphatase 60 U/L (46-116) Creatine Kinase 64 U/L (39-308) Troponin I Quantitative < 0.017 ng/mL (0.000-0.055) < 0.017 ng/mL (0.000-0.055) Total Protein 6.9 g/dL (6.4-8.2) Albumin 3.3 g/dL (3.4-5.0) Albumin/Globulin Ratio 0.9 (1.0-1.7) Lipase 281 U/L (73-393) Urine Collection Type Unknown Urine Color Yellow Urine Clarity Clear Urine pH 5.0 (<5.0-8.0) Urine Specific [place] 1.020 (1.000-1.030) Urine Protein Negative mg/dL (NEG-TRACE) Urine Glucose (UA) >=1000 mg/dL (NEG) Urine Ketones (Stick) Negative mg/dL (NEG) Urine Blood Negative (NEG) Urine Nitrite Negative (NEG) Urine Bilirubin Negative (NEG) Urine Urobilinogen Dipstick 0.2 mg/dL (0.2 mg/dL) Urine Leukocyte Esterase Negative (NEG) Urine RBC 1-2 /HPF (0-2) Urine WBC 0 /HPF (0-4) Urine Squamous Epithelial Cells Few /LPF Urine Bacteria 0 /HPF (0-FEW) Laboratory Tests Test 01/31/21 22:10 01/31/21 23:20 02/01/21 03:30 White Blood Count 8.5 x10^3/uL (4.0-11.0) 6.6 x10^3/uL (4.0-11.0) Red Blood Count 5.58 x10^6/uL (4.30-5.70) 5.63 x10^6/uL (4.30-5.70) Hemoglobin 17.1 g/dL (13.0-17.5) 17.2 g/dL (13.0-17.5) Hematocrit 52.0 % (39.0-53.0) 53.5 % (39.0-53.0) Mean Corpuscular Volume 93 fL (79-100) 95 fL (79-100) Mean Corpuscular Hemoglobin 31 pg (25-35) 31 pg (25-35) Mean Corpuscular Hemoglobin Concent 33 g/dL (31-37) 32 g/dL (31-37) Red Cell Distribution Width 15.0 % (11.5-14.5) 15.3 % (11.5-14.5) Platelet Count 185 x10^3/uL (140-400) 174 x10^3/uL (140-400) Neutrophils (%) (Auto) 63 % (31-73) 66 % (31-73) Lymphocytes (%) (Auto) 27 % (24-48) 25 % (24-48) Monocytes (%) (Auto) 9 % (0-9) 7 % (0-9) Eosinophils (%) (Auto) 1 % (0-3) 1 % (0-3) Basophils (%) (Auto) 1 % (0-3) 1 % (0-3) Neutrophils # (Auto) 5.3 x10^3/uL (1.8-7.7) 4.4 x10^3/uL (1.8-7.7) Lymphocytes # (Auto) 2.2 x10^3/uL (1.0-4.8) 1.7 x10^3/uL (1.0-4.8) Monocytes # (Auto) 0.8 x10^3/uL (0.0-1.1) 0.5 x10^3/uL (0.0-1.1) Eosinophils # (Auto) 0.1 x10^3/uL (0.0-0.7) 0.0 x10^3/uL (0.0-0.7) Basophils # (Auto) 0.1 x10^3/uL (0.0-0.2) 0.1 x10^3/uL (0.0-0.2) Sodium Level 138 mmol/L (136-145) 141 mmol/L (136-145) Potassium Level 4.0 mmol/L (3.5-5.1) 4.9 mmol/L (3.5-5.1) Chloride Level 99 mmol/L (98-107) 100 mmol/L (98-107) Carbon Dioxide Level 35 mmol/L (21-32) 36 mmol/L (21-32) Anion Gap 4 (6-14) 5 (6-14) Blood Urea Nitrogen 11 mg/dL (8-26) 11 mg/dL (8-26) Creatinine 0.8 mg/dL (0.7-1.3) 0.8 mg/dL (0.7-1.3) Estimated GFR (Cockcroft-Gault) 100.7 100.7 BUN/Creatinine Ratio 14 (6-20) Glucose Level 174 mg/dL (70-99) 115 mg/dL (70-99) Calcium Level 8.7 mg/dL (8.5-10.1) 8.7 mg/dL (8.5-10.1) Total Bilirubin 0.5 mg/dL (0.2-1.0) Aspartate Amino Transf (AST/SGOT) 12 U/L (15-37) Alanine Aminotransferase (ALT/SGPT) 19 U/L (16-63) Alkaline Phosphatase 60 U/L (46-116) Creatine Kinase 64 U/L (39-308) Troponin I Quantitative < 0.017 ng/mL (0.000-0.055) < 0.017 ng/mL (0.000-0.055) Total Protein 6.9 g/dL (6.4-8.2) Albumin 3.3 g/dL (3.4-5.0) Albumin/Globulin Ratio 0.9 (1.0-1.7) Lipase 281 U/L (73-393) Urine Collection Type Unknown Urine Color Yellow Urine Clarity Clear Urine pH 5.0 (<5.0-8.0) Urine Specific [place] 1.020 (1.000-1.030) Urine Protein Negative mg/dL (NEG-TRACE) Urine Glucose (UA) >=1000 mg/dL (NEG) Urine Ketones (Stick) Negative mg/dL (NEG) Urine Blood Negative (NEG) Urine Nitrite Negative (NEG) Urine Bilirubin Negative (NEG) Urine Urobilinogen Dipstick 0.2 mg/dL (0.2 mg/dL) Urine Leukocyte Esterase Negative (NEG) Urine RBC 1-2 /HPF (0-2) Urine WBC 0 /HPF (0-4) Urine Squamous Epithelial Cells Few /LPF Urine Bacteria 0 /HPF (0-FEW) Images Images Chest radiograph: The cardiomediastinal silhouette is normal. Pulmonary arteries are prominent. Lungs are clear. There is no pneumothorax. No pleural effusion is appreciated. No acute bone abnormality. IMPRESSION: No acute cardiopulmonary process. VTE Prophylaxis Ordered VTE Prophylaxis Devices: No VTE Pharmacological Prophylaxi: No Assessment/Plan Assessment/Plan A/P: Epigastric abdominal pain -likely diabetic gastroparesis. I discussed Reglan. Previously was on erythromycin and this has been discontinued as his insurance would not pay for it.. With his high risk for CAD was ruled out with EKG and troponins and will have cardiology follow-up outpatient as his prior sccm administrator was Dr. Deluca. BALTA on home BIPAP COPD on 6L NCO2 at home - not currently in exacerbation Obesity - counseled on weight loss, diet, exercise. Smoker - 6 cigarettes per day counseled on cessation and offered cessation therapies currently precontemplative. Chronic back pain - sees his PCP, Dr. Reddy Hypertension - stable, cont home meds Hyperlipidemia - on statin Diabetes - type 2 - cont insulin FEN - ADA cardiac diet PPX - lovenox, PPI FULL CODE Dispo - observation for atypical chest pain, will trend troponins. Likely will need outpatient stress testing, cardiology f/u and GI f/u Justifications for Admission Other Justification Acute hypoxemic respiratory failure ABY GUERIN MD Feb 01, 2021 08:22
[2021-02-01] MEDS ORDERED: DEXTROSE 50% 25 GM / 50ML DISP.SYRIN. IV PRN (08:30)
[2021-02-01] MEDS: INSULIN LISPRO 300 UNITS/3 ML VIAL. SQ SCH ×2 (09:00→12:00)
[2021-02-01] MEDS ORDERED: ASPIRIN 325 MG TABLET PO SCH (09:00)
[2021-02-01] MEDS ORDERED: PANTOPRAZOLE 40 MG TABLET.DR. PO SCH (09:00)
[2021-02-01] MEDS ORDERED: LISINOPRIL 10 MG TABLET PO SCH (09:00)
[2021-02-01] MEDS ORDERED: LIDO:MAALOX 1:1 20 ML SINGLE DOSE. SWSW ONE (10:30)
[2021-02-01 11:00] VITALS: BP 143/85
[2021-02-01] MEDS ORDERED: ALBUTEROL SULFATE 2.5 MG/3 ML NEBU. INH PRN (13:30)
--- NOTE | 2021-02-01 13:33 | PDOC3 ---
Discharge Summary Visit Information Date of Admission: Feb 01, 2021 Date of Discharge: Feb 01, 2021 Admitting Diagnosis: Epigastric pain Final Diagnosis Problems Medical Problems: (1) Chest pain Status: Acute Brief Hospital Course Allergies Allergies Coded Allergies Type Severity Reaction Last Updated Verified No Known Drug Allergies 02/15/15 No Vital Signs Vital Signs Date Time Temp Pulse Resp B/P (MAP) Pulse Ox O2 Delivery O2 Flow Rate FiO2 02/01/21 11:20 97 Nasal Cannula 6.0 02/01/21 11:00 98.5 99 18 143/85 (104) 98.5 Lab Results Laboratory Tests Test 01/31/21 22:10 01/31/21 23:20 02/01/21 03:30 02/01/21 10:39 White Blood Count 8.5 x10^3/uL (4.0-11.0) 6.6 x10^3/uL (4.0-11.0) Red Blood Count 5.58 x10^6/uL (4.30-5.70) 5.63 x10^6/uL (4.30-5.70) Hemoglobin 17.1 g/dL (13.0-17.5) 17.2 g/dL (13.0-17.5) Hematocrit 52.0 % (39.0-53.0) 53.5 % (39.0-53.0) Mean Corpuscular Volume 93 fL (79-100) 95 fL (79-100) Mean Corpuscular Hemoglobin 31 pg (25-35) 31 pg (25-35) Mean Corpuscular Hemoglobin Concent 33 g/dL (31-37) 32 g/dL (31-37) Red Cell Distribution Width 15.0 % (11.5-14.5) 15.3 % (11.5-14.5) Platelet Count 185 x10^3/uL (140-400) 174 x10^3/uL (140-400) Neutrophils (%) (Auto) 63 % (31-73) 66 % (31-73) Lymphocytes (%) (Auto) 27 % (24-48) 25 % (24-48) Monocytes (%) (Auto) 9 % (0-9) 7 % (0-9) Eosinophils (%) (Auto) 1 % (0-3) 1 % (0-3) Basophils (%) (Auto) 1 % (0-3) 1 % (0-3) Neutrophils # (Auto) 5.3 x10^3/uL (1.8-7.7) 4.4 x10^3/uL (1.8-7.7) Lymphocytes # (Auto) 2.2 x10^3/uL (1.0-4.8) 1.7 x10^3/uL (1.0-4.8) Monocytes # (Auto) 0.8 x10^3/uL (0.0-1.1) 0.5 x10^3/uL (0.0-1.1) Eosinophils # (Auto) 0.1 x10^3/uL (0.0-0.7) 0.0 x10^3/uL (0.0-0.7) Basophils # (Auto) 0.1 x10^3/uL (0.0-0.2) 0.1 x10^3/uL (0.0-0.2) Sodium Level 138 mmol/L (136-145) 141 mmol/L (136-145) Potassium Level 4.0 mmol/L (3.5-5.1) 4.9 mmol/L (3.5-5.1) Chloride Level 99 mmol/L (98-107) 100 mmol/L (98-107) Carbon Dioxide Level 35 mmol/L (21-32) 36 mmol/L (21-32) Anion Gap 4 (6-14) 5 (6-14) Blood Urea Nitrogen 11 mg/dL (8-26) 11 mg/dL (8-26) Creatinine 0.8 mg/dL (0.7-1.3) 0.8 mg/dL (0.7-1.3) Estimated GFR (Cockcroft-Gault) 100.7 100.7 BUN/Creatinine Ratio 14 (6-20) Glucose Level 174 mg/dL (70-99) 115 mg/dL (70-99) Calcium Level 8.7 mg/dL (8.5-10.1) 8.7 mg/dL (8.5-10.1) Total Bilirubin 0.5 mg/dL (0.2-1.0) Aspartate Amino Transf (AST/SGOT) 12 U/L (15-37) Alanine Aminotransferase (ALT/SGPT) 19 U/L (16-63) Alkaline Phosphatase 60 U/L (46-116) Creatine Kinase 64 U/L (39-308) Troponin I Quantitative < 0.017 ng/mL (0.000-0.055) < 0.017 ng/mL (0.000-0.055) Total Protein 6.9 g/dL (6.4-8.2) Albumin 3.3 g/dL (3.4-5.0) Albumin/Globulin Ratio 0.9 (1.0-1.7) Lipase 281 U/L (73-393) Urine Collection Type Unknown Urine Color Yellow Urine Clarity Clear Urine pH 5.0 (<5.0-8.0) Urine Specific Mccoll 1.020 (1.000-1.030) Urine Protein Negative mg/dL (NEG-TRACE) Urine Glucose (UA) >=1000 mg/dL (NEG) Urine Ketones (Stick) Negative mg/dL (NEG) Urine Blood Negative (NEG) Urine Nitrite Negative (NEG) Urine Bilirubin Negative (NEG) Urine Urobilinogen Dipstick 0.2 mg/dL (0.2 mg/dL) Urine Leukocyte Esterase Negative (NEG) Urine RBC 1-2 /HPF (0-2) Urine WBC 0 /HPF (0-4) Urine Squamous Epithelial Cells Few /LPF Urine Bacteria 0 /HPF (0-FEW) Glucose (Fingerstick) 98 mg/dL (70-99) Test 02/01/21 12:09 02/01/21 12:58 Glucose (Fingerstick) 116 mg/dL (70-99) Troponin I Quantitative < 0.017 ng/mL (0.000-0.055) Laboratory Tests Test 01/31/21 22:10 01/31/21 23:20 02/01/21 03:30 02/01/21 10:39 White Blood Count 8.5 x10^3/uL (4.0-11.0) 6.6 x10^3/uL (4.0-11.0) Red Blood Count 5.58 x10^6/uL (4.30-5.70) 5.63 x10^6/uL (4.30-5.70) Hemoglobin 17.1 g/dL (13.0-17.5) 17.2 g/dL (13.0-17.5) Hematocrit 52.0 % (39.0-53.0) 53.5 % (39.0-53.0) Mean Corpuscular Volume 93 fL (79-100) 95 fL (79-100) Mean Corpuscular Hemoglobin 31 pg (25-35) 31 pg (25-35) Mean Corpuscular Hemoglobin Concent 33 g/dL (31-37) 32 g/dL (31-37) Red Cell Distribution Width 15.0 % (11.5-14.5) 15.3 % (11.5-14.5) Platelet Count 185 x10^3/uL (140-400) 174 x10^3/uL (140-400) Neutrophils (%) (Auto) 63 % (31-73) 66 % (31-73) Lymphocytes (%) (Auto) 27 % (24-48) 25 % (24-48) Monocytes (%) (Auto) 9 % (0-9) 7 % (0-9) Eosinophils (%) (Auto) 1 % (0-3) 1 % (0-3) Basophils (%) (Auto) 1 % (0-3) 1 % (0-3) Neutrophils # (Auto) 5.3 x10^3/uL (1.8-7.7) 4.4 x10^3/uL (1.8-7.7) Lymphocytes # (Auto) 2.2 x10^3/uL (1.0-4.8) 1.7 x10^3/uL (1.0-4.8) Monocytes # (Auto) 0.8 x10^3/uL (0.0-1.1) 0.5 x10^3/uL (0.0-1.1) Eosinophils # (Auto) 0.1 x10^3/uL (0.0-0.7) 0.0 x10^3/uL (0.0-0.7) Basophils # (Auto) 0.1 x10^3/uL (0.0-0.2) 0.1 x10^3/uL (0.0-0.2) Sodium Level 138 mmol/L (136-145) 141 mmol/L (136-145) Potassium Level 4.0 mmol/L (3.5-5.1) 4.9 mmol/L (3.5-5.1) Chloride Level 99 mmol/L (98-107) 100 mmol/L (98-107) Carbon Dioxide Level 35 mmol/L (21-32) 36 mmol/L (21-32) Anion Gap 4 (6-14) 5 (6-14) Blood Urea Nitrogen 11 mg/dL (8-26) 11 mg/dL (8-26) Creatinine 0.8 mg/dL (0.7-1.3) 0.8 mg/dL (0.7-1.3) Estimated GFR (Cockcroft-Gault) 100.7 100.7 BUN/Creatinine Ratio 14 (6-20) Glucose Level 174 mg/dL (70-99) 115 mg/dL (70-99) Calcium Level 8.7 mg/dL (8.5-10.1) 8.7 mg/dL (8.5-10.1) Total Bilirubin 0.5 mg/dL (0.2-1.0) Aspartate Amino Transf (AST/SGOT) 12 U/L (15-37) Alanine Aminotransferase (ALT/SGPT) 19 U/L (16-63) Alkaline Phosphatase 60 U/L (46-116) Creatine Kinase 64 U/L (39-308) Troponin I Quantitative < 0.017 ng/mL (0.000-0.055) < 0.017 ng/mL (0.000-0.055) Total Protein 6.9 g/dL (6.4-8.2) Albumin 3.3 g/dL (3.4-5.0) Albumin/Globulin Ratio 0.9 (1.0-1.7) Lipase 281 U/L (73-393) Urine Collection Type Unknown Urine Color Yellow Urine Clarity Clear Urine pH 5.0 (<5.0-8.0) Urine Specific Mccoll 1.020 (1.000-1.030) Urine Protein Negative mg/dL (NEG-TRACE) Urine Glucose (UA) >=1000 mg/dL (NEG) Urine Ketones (Stick) Negative mg/dL (NEG) Urine Blood Negative (NEG) Urine Nitrite Negative (NEG) Urine Bilirubin Negative (NEG) Urine Urobilinogen Dipstick 0.2 mg/dL (0.2 mg/dL) Urine Leukocyte Esterase Negative (NEG) Urine RBC 1-2 /HPF (0-2) Urine WBC 0 /HPF (0-4) Urine Squamous Epithelial Cells Few /LPF Urine Bacteria 0 /HPF (0-FEW) Glucose (Fingerstick) 98 mg/dL (70-99) Test 02/01/21 12:09 02/01/21 12:58 Glucose (Fingerstick) 116 mg/dL (70-99) Troponin I Quantitative < 0.017 ng/mL (0.000-0.055) Brief Hospital Course Mr Pelayo is a 55 year old male with past medical history of BALTA on home BIPAP, COPD on 6L NCO2 at home, obesity, smoker 6 cigarettes per day, chronic back pain, hypertension, hyperlipidemia and diabetes on permanent disability now presenting to emergency department complaining of new onset of epigastric abdominal pain. Patient states approxi-3 hours prior to arrival he started having new burning pain in the midepigastric region which radiates in a bandlike sensation around the abdomen on both sides. He does note eating a taco salad 90 minutes to 2-1/2 hours prior to this episode. He is adentulous and notes that he tries to eat foods that are soft. Denies any associated back pain. Denies any associated nausea, vomiting, fever, chills, chest pains or shortness of breath. No diarrhea. Denies any history of similar symptoms. He does note previously seeing Dr. Deluca hazardous materials handler and has been stable. He also has seen GI for colonoscopy and EGD and was told he is diabetic gastroparesis previously started on erythromycin but insurance stopped paying for this. He has not followed up with GI since since last EGD required hospitalization afterwards due to his chronic hypoxic respiratory failure on 6 L of oxygen he prefers not to have repeat EGD. EKG normal sinus rhythm however there is evidence of T wave inversion in V2 through V4. Intervals normal, no reciprocal changes. Troponin x3 negative. Lipase 21, basic metabolic panel and CBC within normal laboratory limits. [place] better after PPI and GI cocktail Problem list: Epigastric abdominal pain -likely diabetic gastroparesis. I discussed Reglan. Previously was on erythromycin and this has been discontinued as his insurance would not pay for it.. With his high risk for CAD was ruled out with EKG and troponins and will have cardiology follow-up outpatient as his prior hazardous materials handler was Dr. Deluca. BALTA on home BIPAP COPD on 6L NCO2 at home - not currently in exacerbation Obesity - counseled on weight loss, diet, exercise. Smoker - 6 cigarettes per day counseled on cessation and offered cessation therapies currently precontemplative. Chronic back pain - sees his PCP, Dr. Reddy Hypertension - stable, cont home meds Hyperlipidemia - on statin Diabetes - type 2 - cont insulin Follow up with Cardiology: Dr. Milan outpatient Call to schedule: Follow up with Gastroenterology: Dr. Rose outpatient Call to schedule with [facility]: Greater than 80 minutes spent on same day admit and d/c Discharge Information Condition at Discharge: Improved Follow Up: Weeks (1) Disposition/Orders: D/C to Home Scheduled Aspirin (Aspirin) 325 Mg Tablet, 325 MG PO DAILY, (Reported) Entered as Reported by: OMAIRA MAHER on 11/26/131509 Last Action: Continued on 02/01/21822 by ABY GUERIN MD Empagliflozin/Linagliptin (Glyxambi 25 mg-5 mg Tablet) 1 Each Tablet, 1 EACH PO DAILY for dm, (Reported) Entered as Reported by: DAVID BENITEZ on 01/03/21 225 Fluticasone/Salmeterol (Advair 500-50 Diskus) 1 Each Disk.w.dev, 1 PUFF IH BID, #1 Ref 5 (Reported) Entered as Reported by: ADRIAN MULLER on 09/22/14 1749 Glimepiride (Glimepiride) 4 Mg Tablet, 4 MG PO BID, (Reported) Entered as Reported by: OMAIRA MAHER on 11/26/131509 Lisinopril (Lisinopril) 5 Mg Tablet, 10 MG PO DAILY for htn, (Reported) Entered as Reported by: OMAIRA MAHER on 11/26/131509 Last Action: Continued on 02/01/21822 by ABY GUERIN MD Metformin Hcl (Metformin Hcl Er) 500 Mg Tab.er.24, 500 MG PO BID, (Reported) Entered as Reported by: OMAIRA MAHER on 11/26/131509 Pantoprazole Sodium (Protonix ) 40 Mg Tablet.dr, 40 MG PO DAILY, #30 Ref 6 Prescribed by: AMPARO REDDY on 09/26/14 1352 Last Action: Continued on 02/01/21 08 by ABY GUERIN MD Potassium Chloride (Potassium Chloride ) 10 Meq Capsule.er, 10 MEQ PO BID, (Reported) Entered as Reported by: OMAIRA MAHER on 11/26/13 1510 Sennosides (Senna Laxative) 8.6 Mg Tablet, 8.6 MG PO HS for constipation, (Reported) Entered as Reported by: DAVID BENITEZ on 01/03/21 2258 Tiotropium [place] (Spiriva) 18 Mcg Cap.w.dev, 18 MCG IH DAILY, (Reported) Entered as Reported by: OMAIRA MAHER on 11/26/13 1510 Torsemide (Torsemide) 20 Mg Tablet, 20 MG PO BID, (Reported) Entered as Reported by: OMAIRA MAHER on 11/26/13 1510 Scheduled PRN Albuterol Sulfate (Proair Hfa Inhaler) 8.5 Gm Hfa.aer.ad, 1 PUFF INH PRN Q6HRS PRN for SHORTNESS OF BREATH, Ref 0 (Reported) Entered as Reported by: ADRIAN MULLER on 09/22/14 1749 [Albuterol Sulfate] 2.5 MG/3 ML NEBU, 2.5 MG NEB PRN Q2HR PRN for DYSPNEA, #120 Ref 3 Prescribed by: AMPARO REDDY on 09/26/14 1342 Justicifation of Admission Dx: Justifications for Admission: Justification of Admission Dx: Yes Respiratory Failure: Severe Resp Distress ABY GUERIN MD Feb 01, 2021 13:33
[2021-02-01 15:00] VITALS: BP 139/87
[2021-02-01] MEDS ORDERED: TORSEMIDE 20 MG TABLET. PO SCH (21:00)
== END 2021-02-01 15:05 | disposition home or self-care (01) ==
LOC: ER 21:17 → 2 NORTH 02-01 00:25
PROVIDERS: ADMIT Internal Medicine; ATTEND Internal Medicine
DX: J96.21 Acute and chronic respiratory failure with hypoxia (principal); I11.0 Hypertensive heart disease with heart failure; I50.9 Heart failure, unspecified; R07.89 Other chest pain; J44.9 Chronic obstructive pulmonary disease, unspecified; G47.33 Obstructive sleep apnea (adult) (pediatric); G89.29 Other chronic pain; M54.9 Dorsalgia, unspecified; E78.5 Hyperlipidemia, unspecified; E11.43 Type 2 diabetes mellitus with diabetic autonomic (poly)neuropathy; K21.9 Gastro-esophageal reflux disease without esophagitis; E66.9 Obesity, unspecified; F17.210 Nicotine dependence, cigarettes, uncomplicated; Z79.4 Long term (current) use of insulin; Z90.49 Acquired absence of other specified parts of digestive tract; Z98.890 Other specified postprocedural states; Z79.82 Long term (current) use of aspirin; Z79.899 Other long term (current) drug therapy; Z68.33 Body mass index [BMI] 33.0-33.9, adult
CPT/HCPCS: 36415; 71045; 80048; 80053; 81001; 82550; 82962; 83690; 84484; 85025; 94640; 94760; 96361; 96374; 96375; 96376; 99285; G0378; J1815; J2270; J2405; J7030; G0379

== ENCOUNTER 2021-07-23 17:34 | Emergency (ER) | payer MEDICARE ==
[~2021-07-23] VITALS: Ht 190.5 cm; Wt 117.7 kg
[~2021-07-23 17:34] MED LIST changes: +ALBU2.5V5 NEB; +DOXY-181 PO; +SENN25TA10 PO
[2021-07-23] MEDS ORDERED: IPRATRPIUM/ALBUTEROL 0.5/2.5MG 3 ML NEBU. NEB ONE (18:45)
[2021-07-23] MEDS ORDERED: methylPREDNISolone SOD SUCC PF 125 MG/2 ML VIAL. IV ONE (18:45)
--- NOTE | 2021-07-23 18:58 | PHYS DOC ---
Past Medical History Past Medical History: CHF, COPD, Diabetes-Type II Additional Past Medical Histor: History of COPD on 6 L of home oxygen, history of CHF on torsemide Past Surgical History: Cholecystectomy, Other Additional Past Surgical Histo: vasectomy Smoking Status: Former Smoker Alcohol Use: Occasionally Drug Use: None General Adult EDM: Chief Complaint: Shortness of breath, history of COPD HPI: HPI: 56-year-old male has a history of severe COPD on 6 L of home oxygen, CHF on torsemide, presented to the emergency department complaining of cough, wheezing and shortness of breath over the past several days, the patient was admitted to the hospital roughly 5 weeks ago for similar symptomatology although at that time he had developed bilateral pneumonia, he did test negative for COVID-19 although there was a high index of suspicion, the patient was treated with antibiotics, steroids and pulmonary toilet, clinically improved, was convinced fortunately to get a COVID-19 vaccine, says that he believes his legs are swoll en now, does not do daily weights, says that he has not missed any doses of his medication, denies any hemoptysis or night sweats, no productive cough does complain of persistent wheezing, denies chest pain, no fever, chills, no loss of taste or smell Review of Systems: Review of Systems: General: no fevers , no chills, no general weakness Eyes: no blurred vision, no diplopia Skin: no rashes Neck: no swelling, no neck stiffness, no neck pain Heme: no bleeding, no lymph node enlargement Ear/Nose/Throat: No sore throat, no runny nose, no hearing loss, no difficulty swallowing Cardiovascular: no Chest pain, no palpitations Respiratory: + dyspnea, +cough, no hemoptysis, positive for wheezing Gastrointestinal: No abdominal pain, no nausea, no vomiting, no diarrhea, no blood in stool Genitourinary: no dysuria, no hematuria Musculoskeletal: no back pain, no leg pain, no arm pain, no arthralgia, positive for leg swelling Neurologic: no headaches, no dizziness, no focal numbness/tingling, no focal weakness Psych: no depression, no anxiety, no SI/HI *All review of systems are negative other than what is noted above Heart Score: C/O Chest Pain: Yes HEART Score for Chest Pain: HEART Score for Chest Pain Response (Comments) Value History Slighlty/Non-Suspicious 0 ECG Nonspecific Repolarizatio 1 Age >45 - < 65 1 Risk Factors 1 or 2 Risk Factors 1 Troponin < Normal Limit 0 Total 3 Risk Factors: Risk Factors: DM, Current or recent (<one month) smoker, HTN, HLP, family history of CAD, obesity. Risk Scores: Score 0 - 3: 2.5% MACE over next 6 weeks - Discharge Home Score 4 - 6: 20.3% MACE over next 6 weeks - Admit for Clinical Observation Score 7 - 10: 72.7% MACE over next 6 weeks - Early Invasive Strategies Current Medications: Current Medications Medications (Trade) Dose Ordered Sig/Theresa Start Time Stop Time Status Last Admin Dose Admin Albuterol/ Ipratropium (Duoneb) 3 ml 1X ONCE 07/23/21 18:45 07/23/21 18:48 DC Methylprednisolone Sodium Succinate (SOLU-Medrol 125MG VIAL) 125 mg 1X ONCE 07/23/21 18:45 07/23/21 18:48 DC Allergies: Allergies: Allergies Coded Allergies Type Severity Reaction Last Updated Verified No Known Drug Allergies 02/15/15 No Physical Exam: PE: Gen-well appearing, no acute distress Head: Normocephalic/Atraumatic ENT: atraumatic, PERRLA, EOMI, oropharynx clear Neck: supple, full ROM/strength, no JVD, no nuchal rigidity Lungs: no distress, speaks in full sentences, there is end expiratory wheezing bilaterally CV: reg rate, rhythm, no murmus/rubs/gallops, peripheral pulses equal in all extremities Abdomen: soft/nontender, no guarding/rebound tenderness, no rigidity, non distended, normoactive bowel sounds Musculoskeletal: full ROM/strength in all extremities, atraumatic, there is trace bipedal edema Back: full range of motion/strength Skin: intact, no rashes Lymph: no gross BERENICE Neuro: alert and oriented x 4, CN 2-12 grossly intact, Motor strength is 5/5 in all extremities, no focal sensory deficits, no focal ataxia, ambulatory with steady gait Psych: normal mood/affect Current Patient Data: Vital Signs: Vital Signs Date Time Temp Pulse Resp B/P (MAP) Pulse Ox O2 Delivery O2 Flow Rate FiO2 07/23/21 18:10 115 16 108/73 (89) 93 Nasal Cannula EKG: EKG: [] Twelve-lead EKG was performed on arrival at 6:43 PM: Normal sinus rhythm, rate is 78, there is a poor R wave transition, Q waves in the inferior leads, computer again anterior fascicular block however do not see any acute changes compared with the prior EKG done on June 162019 Radiology/Procedures: Radiology/Procedures: [] Course & Med Decision Making: Course & Med Decision Making Pertinent Labs and Imaging studies reviewed. (See chart for details) [] 56-year-old male with a history of severe COPD on home oxygen comes to the emergency department complaining of cough, wheezing and shortness of breath, had a history of recent pneumonia but [place] is vaccinated to COVID-19, on arrival to the emergency room the patient's clinical symptomatology and exam findings are suspicion for volume overload although the pertinent differential diagnosis includes not limited to pneumonia, COVID-19 is lower on the differential, unlikely ACS, PE, dissection, pneumothorax are all unlikely etiology complaint this time is a cardiac work-up, troponin, chest x-ray, will give him some steroids and breathing treatments, will reevaluate examine him during his work- up to determine the best course of action is more data becomes available Reevaluation at 8:46 PM: Feeling better, oxygenating better, slightly volume overloaded but was diuresed successfully, the rest of his work-up is negative and I believe he stable for discharge at this time Patient was seen in the ED for a CHF and COPD exacerbation that improved in the emergency department there is no apparent evidence of any emergency medical pathology at this time, patient was advised follow-up with their primary care provider /physician in the next 24-48 hours and to return to the ED before then if any new or worsening / concerning symptoms had developed. All questions and concerns were addressed at time of disposition Dragon Disclaimer: Dragon Disclaimer: This electronic medical record was generated, in whole or in part, using a voice recognition dictation system. Departure Departure Impression: Primary Impression: Dyspnea and respiratory abnormalities Disposition: HOME / SELF CARE / HOMELESS Condition: IMPROVED Referrals: Génesis CESAR MD (PCP) Within 48 hours Patient Instructions: Edema, Heart Failure Additional Instructions: Your tests were okay, you are slightly volume overloaded which means a little bit of extra fluid in the lungs, I recommend following up with your primary care doctor in the next 48 hours, return to the emergency room before then if any new or worsening/concerning symptoms develop RYAN MCCONNELL MD Jul 23, 2021 18:58
[2021-07-23 19:08] LABS: BASO # 0.1 x10^3/uL (0.0-0.2); BASO % 1 % (0-3); EOS # 0.1 x10^3/uL (0.0-0.7); EOS % 1 % (0-3); HEMATOCRIT 52.4 % (39.0-53.0); HEMOGLOBIN 17.6 g/dL (13.0-17.5); LYMPH # 1.9 x10^3/uL (1.0-4.8); LYMPH % 22 % (24-48); MEAN CORPUSCULAR HEMOGLOBIN 32 pg (25-35); MEAN CORPUSCULAR HGB CONC 34 g/dL (31-37); MEAN CORPUSCULAR VOLUME 95 fL (79-100); MONO % 12 % (0-9); NEUT # 5.7 x10^3/uL (1.8-7.7); NEUT % 65 % (31-73); PLATELET COUNT 279 x10^3/uL (140-400); RED BLOOD COUNT 5.51 x10^6/uL (4.30-5.70); RED CELL DISTRIBUTION WIDTH 15.4 % (11.5-14.5); WHITE BLOOD COUNT 8.9 x10^3/uL (4.0-11.0)
[2021-07-23 19:19] LABS: BLOOD UREA NITROGEN 13 mg/dL (8-26); BUN/CREATININE RATIO 14 (6-20); CALCIUM 8.8 mg/dL (8.5-10.1); CARBON DIOXIDE 43 mmol/L (21-32); CHLORIDE 97 mmol/L (98-107); CREATININE 0.9 mg/dL (0.7-1.3); GFR 87.6; GLUCOSE 119 mg/dL (70-99); POTASSIUM 4.1 mmol/L (3.5-5.1); SODIUM 137 mmol/L (136-145)
[2021-07-23 19:26] LABS: ALBUMIN 3.2 g/dL (3.4-5.0); ALBUMIN/GLOBULIN RATIO 0.8 (1.0-1.7); ALK PHOS 63 U/L (46-116); ALT (SGPT) 13 U/L (16-63); AST (SGOT) 11 U/L (15-37); LIPASE 135 U/L (73-393); TOTAL BILIRUBIN 0.6 mg/dL (0.2-1.0)
--- NOTE | 2021-07-23 19:30 | RAD ---
XR CHEST 1V History: Reason: dyspnea / Spl. Instructions: / History: Comparison: June 16, 2021 Findings: Mild diffuse interstitial thickening with ill-defined opacities, similar compared to prior. Tiny righ t pleural effusion, unchanged. No pneumothorax. Enlarged cardiac size, unchanged. Impression: 1. Mild diffuse interstitial thickening with ill-defined opacities, may relate to chronic interstiti al changes although superimposed pulmonary edema is possible. 2. Tiny right pleural effusion, unchanged. Electronically signed by: Luis Antonio Jackson DO (07/23/2021 7:28 PM) [facility]
[2021-07-23] MEDS ORDERED: FUROSEMIDE 40 MG/4 ML VIAL. IVP ONE (20:00)
[2021-07-23 21:00] VITALS: BP 113/59
--- NOTE | 2021-07-24 05:08 | EKG ---
[facility] [address] [place] [address] Test Date: 2021-07-23 Test Time: 18:43:32 Pat Name: ELIUD RICCI Department: Room: Gender: M [employer] Gl[employer] Operator: : [id number] Requested By: RYAN MCCONNELL Order Number: [id number] Reading MD: Measurements Intervals [place] Rate: 78 P: 44 ME: 166 QRS: -39 QRSD: 92 T: 33 QT: 378 QTc: 434 Interpretive Statements SINUS RHYTHM ABNORMAL LEFT AXIS DEVIATION R-S TRANSITION ZONE IN V LEADS DISPLACED TO THE LEFT LEFT ANTERIOR FASCICULAR BLOCK ABNORMAL ECG RI6.02 Compared to ECG 07/23/2021 18:18:37 Left-axis deviation now present
--- NOTE | 2021-07-24 17:37 | NUR ---
IP: Attempted to contact pt concerning covid results. No answer, left a voicemail to return the call.
--- NOTE | 2021-07-24 17:59 | NUR ---
IP: Pt returned my call. I informed him of the negative covid test. Pt verbalized understanding.
== END 2021-07-23 21:20 | disposition home or self-care (01) ==
LOC: ER 17:34
DX: R06.02 Shortness of breath (principal); J98.8 Other specified respiratory disorders; J44.9 Chronic obstructive pulmonary disease, unspecified; E11.9 Type 2 diabetes mellitus without complications; Z86.79 Personal history of other diseases of the circulatory system; Z87.891 Personal history of nicotine dependence
CPT/HCPCS: 36415; 71045; 80053; 83690; 83880; 84484; 85025; 93005; 94640; 96374; 96375; 99285; J1940; J2930; U0003; U0005

== ENCOUNTER → 2021-08-05 | Outpatient (CLI) | payer MEDICARE ==
[2021-07-23 21:00] VITALS: BP 113/59
--- NOTE | 2021-08-05 18:24 | CARD ---
MR#: [id number] Date of Study: 08/05/2021 Ordering Physician: DARBY VILLEGAS, Referring Physician: DARBY VILLEGAS, Tech: Blaise Mae RUST APPROVED REPORT EXAM: Two-dimensional and M-mode echocardiogram with Doppler and color Doppler. Other Information Quality : FairHR: 110bpm Rhythm : Tachycardia INDICATION Dyspnea RISK FACTORS Obesity Smoking Severe COPD . On constant 7 Liters of O2 2D DIMENSIONS RVDd5.2 (2.9-3.5cm)Left Atrium(2D)3.9 (1.6-4.0cm) IVSd1.1 (0.7-1.1cm)Aortic Root(2D)3.6 (2.0-3.7cm) LVDd5.0 (3.9-5.9cm)LVOT Diameter2.3 (1.8-2.4cm) PWd1.0 (0.7-1.1cm)LVDs3.8 (2.5-4.0cm) FS (%) 25.3 %SV59.6 ml Aortic Valve AoV Peak Ashu.173.6cm/sAoV VTI28.4cm AO Peak GR.12.0mmHgLVOT Peak Ashu.74.8cm/s LVOT VTI 13.13cmAO Mean GR.8mmHg BERNADETTE (VMAX)1.91qb1BQC (VTI)1.93cm2 Mitral Valve MV E Rnywcvuy93.5cm/sMV DECEL ISPO450gt MV A Cjgvpdxc51.8cm/sMV [id number] E/A Ratio0.7MVA (PHT)1.61cm2 TDI E/Lateral E'18.4E/Medial E'16.9 Pulmonary Valve PV Peak Sfsweknt754.3cm/sPV Peak Grad.5mmHg Tricuspid Valve TR P. Mmlolvir857xl/sTR Peak Gr.32mmHg Pulmonary Vein S1 Lgaegwwi46.3cm/sD2 Anxaqilw27.3cm/s LEFT VENTRICLE The left ventricle is normal size. There is normal left ventricular wall thickness. The left ventricu lar systolic function is normal and the ejection fraction is within normal range. Left ventricular ej ection fraction of 50 to 55%. There is normal LV segmental wall motion. Tissue Doppler imaging reveal s abnormal left ventricular diastolic dysfunction. No left ventricle thrombus noted on this study. Th ere is no ventricular septal defect visualized. There is no left ventricular aneurysm. There is no ma ss noted in the left ventricle. RIGHT VENTRICLE The right ventricle is mild dilated. There is normal right ventricular wall thickness. ATRIA The left atrium is borderline dilated. The right atrium is mild dilated. The interatrial septum is in tact with no evidence for an atrial septal defect or patent foramen ovale as noted on 2-D or Doppler imaging. AORTIC VALVE The aortic valve is calcified but opens well. Doppler and Color Flow revealed no significant aortic r egurgitation. There is no significant aortic valvular stenosis. There is no aortic valvular vegetatio n. MITRAL VALVE The mitral valve is normal in structure and function. There is no evidence of mitral valve prolapse. There is no mitral valve stenosis. Doppler and Color Flow revealed trace mitral valve regurgitation. TRICUSPID VALVE The tricuspid valve is normal in structure and function. Doppler and Color Flow revealed mild tricusp id regurgitation. There is no tricuspid valve prolapse or vegetation. There is no tricuspid valve kenny nosis. PULMONIC VALVE The pulmonary valve is normal in structure and function. Doppler and Color Flow revealed no pulmonic valvular regurgitation. There is no pulmonic valvular stenosis. GREAT VESSELS The aortic root is normal in size. The ascending aorta is normal in size. There is mild pulmonary art davian dilatation. The IVC is markedly dilated at 3.4cm with blunted inspiratory response. PERICARDIAL EFFUSION There is no pleural effusion. There is no evidence of significant pericardial effusion. Critical Notification Critical Value: No <Conclusion> The left ventricle is normal size. The left ventricular systolic function is normal and the ejection fraction is within normal range. Left ventricular ejection fraction of 50 to 55%. Doppler and Color Flow revealed no significant aortic regurgitation. There is no significant aortic valvular stenosis. Doppler and Color Flow revealed trace mitral valve regurgitation. Doppler and Color Flow revealed mild tricuspid regurgitation. Signed by : Darby Villegas MD Electronically Approved : 08/05/2021 18:24:24
== END ==
LOC: ECHO 07:59
PROVIDERS: ATTEND Internal Medicine Cardiovascular Disease
DX: I08.2 Rheumatic disorders of both aortic and tricuspid valves (principal); R06.00 Dyspnea, unspecified
CPT/HCPCS: 93306

== ENCOUNTER 2021-09-23 22:52 | Inpatient (IN) | payer MEDICARE ==
[~2021-09-23] VITALS: Ht 190.5 cm; Wt 128.3 kg
[~2021-09-23 22:52] MED LIST changes: -LISI-517 PO; +LISI5TAB15 PO
[2021-09-23 23:30] LABS: CALCIUM 8.8 mg/dL (8.5-10.1); CREATININE 0.9 mg/dL (0.7-1.3); GFR 87.6; POTASSIUM 4.5 mmol/L (3.5-5.1)
[2021-09-23 23:35] LABS: ALBUMIN 3.4 g/dL (3.4-5.0); ALBUMIN/GLOBULIN RATIO 0.9 (1.0-1.7); MAGNESIUM 2.3 mg/dL (1.8-2.4); TOTAL PROTEIN 7.3 g/dL (6.4-8.2)
[2021-09-24] MEDS ORDERED: IPRATRPIUM/ALBUTEROL 0.5/2.5MG 3 ML NEBU. NEB ONE
[2021-09-24] MEDS ORDERED: DEXAMETHASONE SOD PHOS 20 MG/5 ML VIAL. IV ONE
[2021-09-24 00:33] LABS: BASE EXCESS ABG 12 mmol/L (-3-3); FIO2 ABG 50; HCO3 ABG 43 mmol/L (21-28); PCO2 ABG 86 mmHg (35-46); PO2 ABG 61 mmHg (75-108); SAT O2 ABG 90 % (92-99)
[2021-09-24 00:56] LABS: BASO % 0 % (0-3); EOS # 0.1 x10^3/uL (0.0-0.7); EOS % 1 % (0-3); HEMATOCRIT 49.2 % (39.0-53.0); LYMPH # 1.9 x10^3/uL (1.0-4.8); LYMPH % 19 % (24-48); MEAN CORPUSCULAR HEMOGLOBIN 32 pg (25-35); MEAN CORPUSCULAR HGB CONC 33 g/dL (31-37); MEAN CORPUSCULAR VOLUME 98 fL (79-100); MONO % 9 % (0-9); NEUT # 7.2 x10^3/uL (1.8-7.7); NEUT % 71 % (31-73); PLATELET COUNT 202 x10^3/uL (140-400); RED BLOOD COUNT 5.02 x10^6/uL (4.30-5.70); RED CELL DISTRIBUTION WIDTH 15.8 % (11.5-14.5); WHITE BLOOD COUNT 10.1 x10^3/uL (4.0-11.0)
[2021-09-24] MEDS ORDERED: DIPH,PERTUSS(ACELL),TET VAC/PF 0.5 ML SYRINGE. VAX IM ONE (01:00)
--- NOTE | 2021-09-24 01:01 | PHYS DOC ---
Past Medical History Past Medical History: CHF, COPD, Diabetes-Type II Additional Past Medical Histor: History of COPD on 6 L of home oxygen, history of CHF on torsemide Past Surgical History: Other Additional Past Surgical Histo: vasectomy Smoking Status: Former Smoker Alcohol Use: Occasionally Drug Use: None General Adult EDM: Chief Complaint: CHEST PAIN HPI: HPI: 56 yo M PMH COPD on 6 L of home oxygen, CHF (on torsemide) and diabetes, presents the ED with his , (patient consents to his/her/their knowledge and involvement in pts' medical care), complaints of distal sternal, constant, nonradiating chest pain with worsening shortness of breath for the past few hours and increased work of breathing. States he's noticed worsening leg swelling for the past week, "I have chf." Has been vaccinated for covid. No h/o covid-19 infection. Review of Systems: Review of Systems: Constitutional: Denies fever or chills. [] Eyes: Denies change in visual acuity. [] HENT: Denies nasal congestion or sore throat. [] Respiratory: Denies cough or hemoptysis Cardiovascular: Denies syncope or palpitations GI: Denies abdominal pain, nausea, vomiting, bloody stools or diarrhea. [] : Denies dysuria or hematuria Musculoskeletal: Denies back pain or joint pain. [] Integument: Denies rash or diaphoresis Neurologic: Denies headache, focal weakness or sensory changes. [] Endocrine: Denies polyuria or polydipsia. [] Lymphatic: Denies swollen glands. [] Psychiatric: Denies depression or anxiety. [] Heart Score: C/O Chest Pain: Yes HEART Score for Chest Pain: HEART Score for Chest Pain Response (Comments) Value History Slighlty/Non-Suspicious 0 ECG Nonspecific Repolarizatio 1 Age >45 - < 65 1 Risk Factors 1 or 2 Risk Factors 1 Troponin < Normal Limit 0 Total 3 Risk Factors: Risk Factors: DM, Current or recent (<one month) smoker, HTN, HLP, family history of CAD, obesity. Risk Scores: Score 0 - 3: 2.5% MACE over next 6 weeks - Discharge Home Score 4 - 6: 20.3% MACE over next 6 weeks - Admit for Clinical Observation Score 7 - 10: 72.7% MACE over next 6 weeks - Early Invasive Strategies Current Medications: Current Medications Medications (Trade) Dose Ordered Sig/Theresa Start Time Stop Time Status Last Admin Dose Admin Albuterol/ Ipratropium (Duoneb) 9 ml 1X ONCE 09/24/21 00:00 09/24/21 00:01 DC 09/23/21 23:48 9 ML Dexamethasone Sodium Phosphate (Decadron) 10 mg 1X ONCE 09/24/21 00:00 09/24/21 00:01 DC 09/23/21 23:58 10 MG Allergies: Allergies: Allergies Coded Allergies Type Severity Reaction Last Updated Verified No Known Drug Allergies 02/15/15 No Physical Exam: PE: Constitutional: afebrile, w/increased work of breathing HENT: Normocephalic, atraumatic, Eyes: EOMI, conjunctiva normal, no discharge. Neck: Normal range of motion, supple, Cardiovascular: S1/2 present, tachycardic Lungs & Thorax: Speaking in 3-4 word sentences, crackles left base, expiratory wheezing with tripod positioning, tachypneic w/subcostal retractions-called for bipap on arrival Abdomen: soft, no tenderness, obese Skin: Warm, dry, no erythema, no rash. [] Back: No tenderness, no CVA tenderness. [] Extremities: No tenderness, no cyanosis, bilateral lower extremity pitting edema Neurologic: Alert and oriented X 3, normal motor function, normal sensory function, no focal deficits noted. [] Psychologic: Affect normal, judgement normal, mood normal. [] Current Patient Data: Labs: Laboratory Tests Test 09/23/21 23:15 Sodium Level 136 mmol/L (136-145) Potassium Level 4.5 mmol/L (3.5-5.1) Chloride Level 93 mmol/L (98-107) L Carbon Dioxide Level 42 mmol/L (21-32) H Anion Gap 1 (6-14) L Blood Urea Nitrogen 12 mg/dL (8-26) Creatinine 0.9 mg/dL (0.7-1.3) Estimated GFR (Cockcroft-Gault) 87.6 BUN/Creatinine Ratio 13 (6-20) Glucose Level 97 mg/dL (70-99) Calcium Level 8.8 mg/dL (8.5-10.1) Magnesium Level 2.3 mg/dL (1.8-2.4) Total Bilirubin 1.0 mg/dL (0.2-1.0) Aspartate Amino Transferase (AST) 10 U/L (15-37) L Alanine Aminotransferase (ALT) 13 U/L (16-63) L Alkaline Phosphatase 62 U/L (46-116) Troponin I Quantitative < 0.017 ng/mL (0.000-0.055) ZN-Exp-I-Type Natriuretic Peptide 1354 pg/mL (0-124) H Total Protein 7.3 g/dL (6.4-8.2) Albumin 3.4 g/dL (3.4-5.0) Albumin/Globulin Ratio 0.9 (1.0-1.7) L Lipase 97 U/L (73-393) Laboratory Tests 09/23/21 23:15 Vital Signs: Vital Signs Date Time Temp Pulse Resp B/P (MAP) Pulse Ox O2 Delivery O2 Flow Rate FiO2 09/23/21 23:48 94 BiPAP/CPAP 09/23/21 22:55 97.9 116 42 133/73 (93) 10.0 97.9 EKG: EKG: Sinus rhythm 76 bpm, no axis deviation, normal intervals, no T wave inversions, no ST elevations or ST depressions-compared to 06/04/2017, new inferior q waves Radiology/Procedures: Radiology/Procedures: IMAGING REPORT Signed PATIENT: ELIUD RICCI ACCOUNT: [id number] : 1965 LOCATION: [address] [place] [address] AGE: 56 SEX: M EXAM STATUS: ADM IN ORD. PHYSICIAN: ALENA YI DO REASON: soa, r/o pe;OMNI 350, 100ML PROCEDURE: CT ANGIOGRAPHY CHEST Examination: CT angiography chest with IV contrast HISTORY: History of shortness of breath COMPARISON: 01/03/2021 TECHNIQUE: Axial CT angiographic images of chest were performed with IV contrast. Coronal and sagittal 3-D MIP reformats are performed Exposure: One or more of the following individualized dose reduction techniques were utilized for this examination: 1. Automated exposure control 2. Adjustment of the mA and/or kV according to patient size 3. Use of iterative reconstruction technique FINDINGS: The visualized thyroid gland grossly appears unremarkable. Central airways are patent. Moderate cardiomegaly. The caliber of the aorta grossly appears unremarkable. Coronary artery calcifications identified. There is no evidence of filling defect identified in the main pulmonary arterial trunk and right and left main pulmonary arteries and visualized lobar, segmental branches of the pulmonary arteries. Mild enlarged mediastinal lymph nodes and bilateral hilar lymphadenopathy similar to prior exam. Moderate bilateral lung emphysematous changes. There are mild patchy airspace opacities identified in the bilateral lungs particularly in the periphery of the lungs. Small consolidation identified in the left lower lobe of the lung. Mild hepatomegaly. The spleen, grossly appears unremarkable. Mild degenerative thoracic spine. IMPRESSION: 1. No evidence of pulmonary embolism. 2. Patchy airspace opacities identified in the bilateral lungs particularly in the periphery of the lungs likely infiltrates particularly in the left lung base with tree-in-bud airspace opacities in the left lung base. Small consolidation identified in the left lower lobe of the lung likely pneumonia. Follow-up to resolution. 3. Moderate bilateral lung emphysematous changes. 4. Mild enlarged mediastinal and bilateral hilar lymphadenopathy similar to karthik or exam. 5. Coronary artery calcifications. 6. Mild hepatomegaly. Electronically signed by: Adiel Fowler MD (09/24/2021 2:52 AM) [id number] DICTATED and SIGNED BY: ADIEL FOWLER MD DATE: 09/24/21 [id number] 0 Course & Med Decision Making: Course & Med Decision Making Pertinent Labs and Imaging studies reviewed. (See chart for details) Concern for hypercapnic respiratory failure in the setting of chest pain, left sided cap, requiring BiPAP. EKG with no ischemia. CTA chest w/no PE. Started on abx, steroids and breathing treatments with covid test pending. Will admit to medicine for further medical management. Patient stable at the time of admission agrees with this plan. I have spoken with the patient and/or caregivers. I have explained the patient's condition, diagnosis and treatment plan based on the information available to me at this time. I have answered the patient's and/or caregivers questions and answered any concerns. The patient and/or caregivers have as good an understanding of the patient's diagnosis, condition and treatment plan as can be expected at this point. The patient has been stabilized within the capability of the emergency department. The patient will be transported for further care and management or will be moved to an observation or inpatient service. I have communicated with the staff or medical practitioner taking over this patient's care. Critical Care: Authorized and Performed by: Alena Yi DO Total critical care time: approximately 30 minutes Due to a high probability of clinically significant, life threatening deterioration, the patient required my highest level of preparedness to intervene emergently and I personally spent this critical care time directly and personally managing the patient. This critical care time included obtaining a history; examining the patient; pulse oximetry; ventilator management if necessary; ordering and review of studies; arranging urgent treatment with development of a management plan; evaluation of patient's response to treatment; frequent reassessment; discussion with patient/family; and, discussions with ot her providers. This critical care time was performed to assess and manage the high probability of imminent, life-threatening deterioration that could result in multi-organ failure. It was exclusive of separately billable procedures and treating other patients and teaching time. Please see MDM section and the rest of the note for further information on patient assessment and treatment. Dragon Disclaimer: Dragon Disclaimer: This electronic medical record was generated, in whole or in part, using a voice recognition dictation system. Departure Departure Impression: Primary Impression: Hypercapnic respiratory failure Additional Impressions: Chest pain CAP (community acquired pneumonia) Person under investigation for COVID-19 Disposition: 09 ADMITTED INPATIENT Admitting Physician: GISELLA (Dr. Azevedo) Condition: GUARDED Referrals: Génesis CESAR MD (PCP) ALENA YI DO Sep 24, 2021 01:01
[2021-09-24] MEDS ORDERED: CONTRAST GIVEN. MC PRN (01:15)
--- NOTE | 2021-09-24 01:29 | RAD ---
EXAM: CHEST 1 VIEW History: Chest pain COMPARISON: 06/16/2021 TECHNIQUE: Single portable radiograph of the chest FINDINGS: Mild cardiomegaly. Mild bibasilar lung airspace opacities likely atelectasis or infiltrate s. The costophrenic sulci are clear and well demarcated. IMPRESSION: Mild bibasilar lung airspace opacities likely atelectasis or infiltrates. Electronically signed by: Adiel Fowler MD (09/24/2021 1:26 AM) [id number]
[2021-09-24] MEDS ORDERED: IOHEXOL 350 MG/ML 100 ML VIAL. IV ONE (01:30)
[2021-09-24 02:54] VITALS: BP 120/84
--- NOTE | 2021-09-24 02:54 | RAD ---
Examination: CT angiography chest with IV contrast HISTORY: History of shortness of breath COMPARISON: 01/03/2021 TECHNIQUE: Axial CT angiographic images of chest were performed with IV contrast. Coronal and sagitta l 3-D MIP reformats are performed Exposure: One or more of the following individualized dose reduction techniques were utilized for thi s examination: 1. Automated exposure control 2. Adjustment of the mA and/or kV according to patient size 3. Use of iterative reconstruction technique FINDINGS: The visualized thyroid gland grossly appears unremarkable. Central airways are patent. Moderate cardi omegaly. The caliber of the aorta grossly appears unremarkable. Coronary artery calcifications identi fied. There is no evidence of filling defect identified in the main pulmonary arterial trunk and righ t and left main pulmonary arteries and visualized lobar, segmental branches of the pulmonary arteries . Mild enlarged mediastinal lymph nodes and bilateral hilar lymphadenopathy similar to prior exam. Moderate bilateral lung emphysematous changes. There are mild patchy airspace opacities identified in the bilateral lungs particularly in the periphery of the lungs. Small consolidation identified in th e left lower lobe of the lung. Mild hepatomegaly. The spleen, grossly appears unremarkable. Mild degenerative thoracic spine. IMPRESSION: 1. No evidence of pulmonary embolism. 2. Patchy airspace opacities identified in the bilateral lungs particularly in the periphery of the lungs likely infiltrates particularly in the left lung base with tree-in-bud airspace opacities in th e left lung base. Small consolidation identified in the left lower lobe of the lung likely pneumonia. Follow-up to resolution. 3. Moderate bilateral lung emphysematous changes. 4. Mild enlarged mediastinal and bilateral hilar lymphadenopathy similar to prior exam. 5. Coronary artery calcifications. 6. Mild hepatomegaly. Electronically signed by: Adiel Fowler MD (09/24/2021 2:52 AM) [id number]
[2021-09-24] MEDS ORDERED: cefTRIAXone IV Push 1 GM VIAL. IVP ONE (03:30)
[2021-09-24] MEDS ORDERED: AZITHRMYCN 500MG IVPB FOR OMNI 250 ML IV ONE (03:30)
--- NOTE | 2021-09-24 04:31 | NUR ---
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 Pt arrived to room 658 per cart at 0245 pt assisted to bed with standby assist tele monitor applied vs obtained pt sob at rest. poc explained pt denied pain at this time call light placed in reach will resume care and continue to monitor pt.
--- NOTE | 2021-09-24 05:06 | EKG ---
[facility] [address] [place] [address] Test Date: 2021-09-23 Test Time: 23:02:07 Pat Name: ELIUD RICCI Department: Room: [facility] Gender: M Web Coordinator: : 1965 Requested By: ARJUN YI Order Number: [id number] Reading MD: Willian Crawford Measurements Intervals [place] Rate: 143 P: AK: QRS: -87 QRSD: 112 T: -27 QT: 322 QTc: 503 Interpretive Statements PROBABLE SINUS TACHYCARDIA ABNORMAL LEFT AXIS DEVIATION Electronically Signed On 09-24-2021 15:56:57 CDT by Willian Crawford
[2021-09-24] MEDS ORDERED: FLUT1DIS5 INH (05:57)
[2021-09-24] MEDS ORDERED: IOHEXOL 350 MG/ML 100 ML VIAL. ONE (06:23)
[2021-09-24 07:00] VITALS: BP 125/78
[2021-09-24 11:00] VITALS: BP 134/68
[2021-09-24] MEDS ORDERED: ALBUTEROL SULFATE 2.5 MG/3 ML NEBU. NEB PRN (11:45)
[2021-09-24] MEDS ORDERED: NON FORMULARY ITEM ([Albuterol Sulfate] 2.5 MG) NEB PRN (11:45)
[2021-09-24] MEDS: IPRATRPIUM/ALBUTEROL 0.5/2.5MG 3 ML NEBU. NEB SCH ×3 (12:00→20:00)
--- NOTE | 2021-09-24 12:01 | HP ---
DATE OF SERVICE: 09/24/2021 ADMIT DATE: 09/24/2021 CHIEF COMPLAINT: Chest pain and shortness of breath. HISTORY OF PRESENT ILLNESS: The patient is a pleasant 56-year-old male who has COPD. He is on 6 liters of oxygen. He also has CHF and multiple comorbidities, basically presented with chest pain and very short of breath. This has been occurring for several days. He complains of substernal, constant, nonradiating pain, worse with movement, better with sitting still. He has also had some increased swelling of his lower extremities. He has been vaccinated for COVID-19. While in the ER, he was noted to have hypercapnic respiratory failure. He has now been placed on BiPAP, where he is being examined in room #658. PAST MEDICAL HISTORY: Severe COPD, CHF, diabetes, O2 dependent at 6 liters at home, cor pulmonale, previous tobacco abuse. ALLERGIES: None. FAMILY HISTORY: Diabetes. SOCIAL HISTORY: He quit smoking. No drink or drugs. He is . MEDICATIONS: Reviewed, please refer to the MRAD. REVIEW OF SYSTEMS: Unable to obtain. The patient is too obtunded. He is on BiPAP. PHYSICAL EXAMINATION: VITALS: Within normal limits and are stable. GENERAL: He is obtunded and he is on BiPAP. HEENT: Normal cephalic atraumatic, external auditory canals are patent. EYES: Extraocular muscles are intact, pupils are equally round and reactive to light and accommodation. MUSCULOSKELETAL: Well developed, well nourished, good range of motion. ENDOCRINE: No thyromegaly was palpated. LYMPHATICS: No cervical chain or axillary nodes were noted. HEMATOPOIETIC: No bruising. NECK: Supple, no JVD, no thyromegaly was noted. LUNGS: He has bibasilar crackles. HEART: RRR, S1, S2 present. Peripheral pulses intact, no obvious murmurs were noted. ABDOMEN: Soft, nontender. Positive bowel sounds no organomegaly, normal bowel sounds. EXTREMITIES: Without any cyanosis, clubbing, or edema. Pedal pulses intact, Homans sign is negative. NEUROLOGIC: He is obtunded and he is on BiPAP. PSYCHIATRIC: He is obtunded and he is on BiPAP. SKIN: No ulcerations or rashes, good skin turgor, no jaundice. VASCULAR: Good capillary refill, neurovascular bundle appears to be intact. Chest x-ray shows mild bibasilar lung airspace opacities, likely atelectasis or infiltrates. CT angiography of the chest showed no PE. He does have emphysema, some mild enlarged mediastinal and bilateral hilar lymph nodes. Coronary calcifications and mild hepatomegaly. Hematology is normal. Electrolytes are pending. BNP is 1354. COVID testing is negative. ASSESSMENT AND PLAN: 1. Acute on chronic systolic and diastolic heart failure and chronic obstructive pulmonary disease with severe hypercapnic respiratory failure. The patient has been admitted to the telemetry floor. We are consulting Cardiology and Pulmonary Medicine. Continue the BiPAP, IV Lasix, steroids, DuoNeb, oxygen and antibiotics. Home meds. DVT prophylaxis. Full code. Serial enzymes, serial EKGs. Consider echocardiogram if Cardiology agrees. Long-term prognosis is extremely guarded. CC TIME: [address]: Amarilys TID: [id number]
--- NOTE | 2021-09-24 12:13 | PDOC2 ---
CARDIAC CONSULT DATE OF CONSULT Date of Consult DATE: 09/24/21 TIME: 12:07 REASON FOR CONSULT Reason for Consult: CHF REFERRING PHYSICIAN Referring Physician: Dr. Solorio SOURCE Source: Chart review, Patient HISTORY OF PRESENT ILLNESS HISTORY OF PRESENT ILLNESS This is a 56 yo male who presented secondary to shortness of breath and chest pain. Patient reports feeling short of breath for the last 2-3 days along with s ome LE edema. Also developed a pressure in his left chest. Describes as stabbing pain. No associated dizziness, diaphoresis, or palpitations. PAST MEDICAL HISTORY Cardiovascular: CHF, HTN, Hyperlipidemia Pulmonary: COPD, Pneumonia, Other (BALTA) GI: GERD Endocrine: Diabetes PAST SURGICAL HISTORY Past Surgical History: Cholecystectomy, Other (vasectomy ) FAMILY HISTORY Family History: Diabetes, Hypertension SOCIAL HISTORY Smoke: Quit ALCOHOL: none Drugs: None Lives: with Family CURRENT MEDICATIONS CURRENT MEDICATIONS Current Medications Medications (Trade) Dose Ordered Sig/Theresa Route PRN Reason Start Time Stop Time Status Last Admin Dose Admin Dexamethasone Sodium Phosphate (Decadron) 10 mg 1X ONCE IV 09/24/21 00:00 09/24/21 00:01 DC 09/23/21 23:58 Albuterol/ Ipratropium (Duoneb) 9 ml 1X ONCE NEB 09/24/21 00:00 09/24/21 00:01 DC 09/23/21 23:48 Iohexol (Omnipaque 350 Mg/ml) 100 ml 1X ONCE IV 09/24/21 01:30 09/24/21 01:31 DC 09/24/21 02:30 Ceftriaxone Sodium (Rocephin) 1 gm 1X ONCE IVP 09/24/21 03:30 09/24/21 03:31 DC 09/24/21 03:30 Azithromycin 250 ml @ 250 mls/hr 1X ONCE IV 09/24/21 03:30 09/24/21 04:29 DC 09/24/21 03:31 ALLERGIES ALLERGIES: Coded Allergies: No Known Drug Allergies (Unverified , 02/15/15) ROS Review of System 14 point ROS conducted with pertinent positives noted above in hPI PHYSICAL EXAM General: Alert, Oriented X3, Cooperative, mild distress HEENT: Atraumatic, Mucous membr. moist/pink Lungs: Other (on BiPAP) Heart: Regular rate Abdomen: Soft, No tenderness Extremities: Other (1+ bilateral LE edema ) Skin: No significant lesion Neuro: Normal speech, Sensation intact Psych/Mental Status: Mental status NL, Mood NL MUSCULOSKELETAL: No joint tenderness, Osteoarthritic changes both hands VITALS/I&O VITALS/I&O: Vital Signs Date Time Temp Pulse Resp B/P (MAP) Pulse Ox O2 Delivery O2 Flow Rate FiO2 09/24/21 11:00 98.2 87 26 134/68 (90) 94 BiPAP/CPAP 98.2 09/23/21 22:55 10.0 I & O 0 09/23/21 09/23/21 09/24/21 15:00 23:00 07:00 Intake Total 600 ml Output Total 300 ml Balance 300 ml LABS Lab: Laboratory Tests Test 09/23/21 23:15 09/24/21 00:14 09/24/21 01:33 09/24/21 04:55 White Blood Count 10.1 x10^3/uL (4.0-11.0) Red Blood Count 5.02 x10^6/uL (4.30-5.70) Hemoglobin 16.0 g/dL (13.0-17.5) Hematocrit 49.2 % (39.0-53.0) Mean Corpuscular Volume 98 fL (79-100) Mean Corpuscular Hemoglobin 32 pg (25-35) Mean Corpuscular Hemoglobin Concent 33 g/dL (31-37) Red Cell Distribution Width 15.8 % (11.5-14.5) H Platelet Count 202 x10^3/uL (140-400) Neutrophils (%) (Auto) 71 % (31-73) Lymphocytes (%) (Auto) 19 % (24-48) L Monocytes (%) (Auto) 9 % (0-9) Eosinophils (%) (Auto) 1 % (0-3) Basophils (%) (Auto) 0 % (0-3) Neutrophils # (Auto) 7.2 x10^3/uL (1.8-7.7) Lymphocytes # (Auto) 1.9 x10^3/uL (1.0-4.8) Monocytes # (Auto) 1.0 x10^3/uL (0.0-1.1) Eosinophils # (Auto) 0.1 x10^3/uL (0.0-0.7) Basophils # (Auto) 0.0 x10^3/uL (0.0-0.2) Sodium Level 136 mmol/L (136-145) Potassium Level 4.5 mmol/L (3.5-5.1) Chloride Level 93 mmol/L (98-107) L Carbon Dioxide Level 42 mmol/L (21-32) H Anion Gap 1 (6-14) L Blood Urea Nitrogen 12 mg/dL (8-26) Creatinine 0.9 mg/dL (0.7-1.3) Estimated GFR (Cockcroft-Gault) 87.6 BUN/Creatinine Ratio 13 (6-20) Glucose Level 97 mg/dL (70-99) Calcium Level 8.8 mg/dL (8.5-10.1) Magnesium Level 2.3 mg/dL (1.8-2.4) Total Bilirubin 1.0 mg/dL (0.2-1.0) Aspartate Amino Transferase (AST) 10 U/L (15-37) L Alanine Aminotransferase (ALT) 13 U/L (16-63) L Alkaline Phosphatase 62 U/L (46-116) Troponin I Quantitative < 0.017 ng/mL (0.000-0.055) < 0.017 ng/mL (0.000-0.055) < 0.017 ng/mL (0.000-0.055) HB-Ksi-G-Type Natriuretic Peptide 1354 pg/mL (0-124) H Total Protein 7.3 g/dL (6.4-8.2) Albumin 3.4 g/dL (3.4-5.0) Albumin/Globulin Ratio 0.9 (1.0-1.7) L Lipase 97 U/L (73-393) O2 Saturation 90 % (92-99) L Arterial Blood pH 7.32 (7.35-7.45) L Arterial Blood pCO2 at Patient Temp 86 mmHg (35-46) *H Arterial Blood pO2 at Patient Temp 61 mmHg (75-108) L Arterial Blood HCO3 43 mmol/L (21-28) H Arterial Blood Base Excess 12 mmol/L (-3-3) H FiO2 50 Test 09/24/21 08:18 09/24/21 08:19 09/24/21 11:54 SARS-CoV-2 Antigen (Rapid) Negative (NEGATIVE) Glucose (Fingerstick) 147 mg/dL (70-99) H 113 mg/dL (70-99) H Laboratory Tests 09/23/21 23:15 Laboratory Tests 09/23/21 23:15 ECHOCARDIOGRAM ECHOCARDIOGRAM <Conclusion> The left ventricle is normal size. The left ventricular systolic function is normal and the ejection fraction is within normal range. Left ventricular ejection fraction of 50 to 55%. Doppler and Color Flow revealed no significant aortic regurgitation. There is no significant aortic valvular stenosis. Doppler and Color Flow revealed trace mitral valve regurgitation. Doppler and Color Flow revealed mild tricuspid regurgitation. DATE: 08/05/21 [id number] ASSESSMENT/PLAN ASSESSMENT/PLAN 1. Acute on chronic respiratory failure, AE COPD, mild CHF, and possible PNA. requiring BiPAP support 2. Mild acute on chronic diastolic CHF; recent echo with preserved LV systolic function 3. Chest pain, mixed features. AMI ruled out 4. Hypertension; controlled 5. Hyperlipidemia 6. Diabetes, II 7. BALTA 8. H/o tobaccosim; in remission Recommendations Add ASA Will give one dose of IV Lasix BiPAP support Lung optimization Outpatient ischemic evaluation RAJAT CASTELLANO APRN Sep 24, 2021 12:13
[2021-09-24] MEDS: ASPIRIN 325 MG TABLET PO SCH (13:09)
[2021-09-24] MEDS: GLIMEPIRIDE 2 MG TABLET. PO SCH ×2 (13:09→21:26)
[2021-09-24] MEDS: LISINOPRIL 10 MG TABLET PO SCH (13:09)
[2021-09-24] MEDS: methylPREDNISolone SOD SUCC PF 40 MG/ML VIAL. IV SCH ×2 (13:09→21:27)
--- NOTE | 2021-09-24 14:28 | PDOC ---
PULMONARY PROGRESS NOTES DATE: 09/24/21 TIME: 14:27 Vitals Vital Signs Date Time Temp Pulse Resp B/P (MAP) Pulse Ox O2 Delivery O2 Flow Rate FiO2 09/24/21 13:09 87 134/68 09/24/21 12:21 94 BiPAP/CPAP 09/24/21 11:00 98.2 26 98.2 09/23/21 22:55 10.0 General: Alert, No acute distress Lungs: Clear, Other Cardiovascular: S1, S2 Abdomen: Soft, Non-tender Extremities: No Edema Labs Laboratory Tests Test 09/23/21 23:15 09/24/21 00:14 09/24/21 01:33 09/24/21 04:55 White Blood Count 10.1 x10^3/uL (4.0-11.0) Red Blood Count 5.02 x10^6/uL (4.30-5.70) Hemoglobin 16.0 g/dL (13.0-17.5) Hematocrit 49.2 % (39.0-53.0) Mean Corpuscular Volume 98 fL (79-100) Mean Corpuscular Hemoglobin 32 pg (25-35) Mean Corpuscular Hemoglobin Concent 33 g/dL (31-37) Red Cell Distribution Width 15.8 % (11.5-14.5) Platelet Count 202 x10^3/uL (140-400) Neutrophils (%) (Auto) 71 % (31-73) Lymphocytes (%) (Auto) 19 % (24-48) Monocytes (%) (Auto) 9 % (0-9) Eosinophils (%) (Auto) 1 % (0-3) Basophils (%) (Auto) 0 % (0-3) Neutrophils # (Auto) 7.2 x10^3/uL (1.8-7.7) Lymphocytes # (Auto) 1.9 x10^3/uL (1.0-4.8) Monocytes # (Auto) 1.0 x10^3/uL (0.0-1.1) Eosinophils # (Auto) 0.1 x10^3/uL (0.0-0.7) Basophils # (Auto) 0.0 x10^3/uL (0.0-0.2) Sodium Level 136 mmol/L (136-145) Potassium Level 4.5 mmol/L (3.5-5.1) Chloride Level 93 mmol/L (98-107) Carbon Dioxide Level 42 mmol/L (21-32) Anion Gap 1 (6-14) Blood Urea Nitrogen 12 mg/dL (8-26) Creatinine 0.9 mg/dL (0.7-1.3) Estimated GFR (Cockcroft-Gault) 87.6 BUN/Creatinine Ratio 13 (6-20) Glucose Level 97 mg/dL (70-99) Calcium Level 8.8 mg/dL (8.5-10.1) Magnesium Level 2.3 mg/dL (1.8-2.4) Total Bilirubin 1.0 mg/dL (0.2-1.0) Aspartate Amino Transf (AST/SGOT) 10 U/L (15-37) Alanine Aminotransferase (ALT/SGPT) 13 U/L (16-63) Alkaline Phosphatase 62 U/L (46-116) Troponin I Quantitative < 0.017 ng/mL (0.000-0.055) < 0.017 ng/mL (0.000-0.055) < 0.017 ng/mL (0.000-0.055) YL-Xty-O-Type Natriuretic Peptide 1354 pg/mL (0-124) Total Protein 7.3 g/dL (6.4-8.2) Albumin 3.4 g/dL (3.4-5.0) Albumin/Globulin Ratio 0.9 (1.0-1.7) Lipase 97 U/L (73-393) O2 Saturation 90 % (92-99) Arterial Blood pH 7.32 (7.35-7.45) Arterial Blood pCO2 at Patient Temp 86 mmHg (35-46) Arterial Blood pO2 at Patient Temp 61 mmHg (75-108) Arterial Blood HCO3 43 mmol/L (21-28) Arterial Blood Base Excess 12 mmol/L (-3-3) FiO2 50 Test 09/24/21 08:18 09/24/21 08:19 09/24/21 11:54 SARS-CoV-2 Antigen (Rapid) Negative (NEGATIVE) Glucose (Fingerstick) 147 mg/dL (70-99) 113 mg/dL (70-99) Laboratory Tests Test 09/23/21 23:15 09/24/21 00:14 09/24/21 01:33 09/24/21 04:55 White Blood Count 10.1 x10^3/uL (4.0-11.0) Red Blood Count 5.02 x10^6/uL (4.30-5.70) Hemoglobin 16.0 g/dL (13.0-17.5) Hematocrit 49.2 % (39.0-53.0) Mean Corpuscular Volume 98 fL (79-100) Mean Corpuscular Hemoglobin 32 pg (25-35) Mean Corpuscular Hemoglobin Concent 33 g/dL (31-37) Red Cell Distribution Width 15.8 % (11.5-14.5) Platelet Count 202 x10^3/uL (140-400) Neutrophils (%) (Auto) 71 % (31-73) Lymphocytes (%) (Auto) 19 % (24-48) Monocytes (%) (Auto) 9 % (0-9) Eosinophils (%) (Auto) 1 % (0-3) Basophils (%) (Auto) 0 % (0-3) Neutrophils # (Auto) 7.2 x10^3/uL (1.8-7.7) Lymphocytes # (Auto) 1.9 x10^3/uL (1.0-4.8) Monocytes # (Auto) 1.0 x10^3/uL (0.0-1.1) Eosinophils # (Auto) 0.1 x10^3/uL (0.0-0.7) Basophils # (Auto) 0.0 x10^3/uL (0.0-0.2) Sodium Level 136 mmol/L (136-145) Potassium Level 4.5 mmol/L (3.5-5.1) Chloride Level 93 mmol/L (98-107) Carbon Dioxide Level 42 mmol/L (21-32) Anion Gap 1 (6-14) Blood Urea Nitrogen 12 mg/dL (8-26) Creatinine 0.9 mg/dL (0.7-1.3) Estimated GFR (Cockcroft-Gault) 87.6 BUN/Creatinine Ratio 13 (6-20) Glucose Level 97 mg/dL (70-99) Calcium Level 8.8 mg/dL (8.5-10.1) Magnesium Level 2.3 mg/dL (1.8-2.4) Total Bilirubin 1.0 mg/dL (0.2-1.0) Aspartate Amino Transf (AST/SGOT) 10 U/L (15-37) Alanine Aminotransferase (ALT/SGPT) 13 U/L (16-63) Alkaline Phosphatase 62 U/L (46-116) Troponin I Quantitative < 0.017 ng/mL (0.000-0.055) < 0.017 ng/mL (0.000-0.055) < 0.017 ng/mL (0.000-0.055) JE-Qjy-Z-Type Natriuretic Peptide 1354 pg/mL (0-124) Total Protein 7.3 g/dL (6.4-8.2) Albumin 3.4 g/dL (3.4-5.0) Albumin/Globulin Ratio 0.9 (1.0-1.7) Lipase 97 U/L (73-393) O2 Saturation 90 % (92-99) Arterial Blood pH 7.32 (7.35-7.45) Arterial Blood pCO2 at Patient Temp 86 mmHg (35-46) Arterial Blood pO2 at Patient Temp 61 mmHg (75-108) Arterial Blood HCO3 43 mmol/L (21-28) Arterial Blood Base Excess 12 mmol/L (-3-3) FiO2 50 Test 09/24/21 08:18 09/24/21 08:19 09/24/21 11:54 SARS-CoV-2 Antigen (Rapid) Negative (NEGATIVE) Glucose (Fingerstick) 147 mg/dL (70-99) 113 mg/dL (70-99) Medications Active Scripts Medications Dose Route/Sig Max Daily Dose Days Date Category Advair 500-50 Diskus (Fluticasone/Salmeterol) 1 Each Disk.w.dev 1 Puff INH BID 09/24/21 Reported Albuterol Sulfate Neb Soln (Albuterol Sulfate) 2.5 Mg/3 Ml Vial.neb 2.5 Mg NEB PRN Q4-6HRS PRN 06/12/21 Reported Glyxambi 25 mg-5 mg Tablet (Empagliflozin/Linagliptin) 1 Each Tablet 1 Each PO DAILY 01/03/21 Reported [Albuterol Sulfate] 2.5 MG/3 ML Nebu 2.5 Mg NEB PRN Q2HR PRN 09/26/14 Rx Aspirin 325 Mg Tablet 325 Mg PO DAILY 11/26/13 Reported Metformin Hcl Er (Metformin Hcl) 500 Mg Tab.er.24 500 Mg PO BID 11/26/13 Reported Lisinopril 5 Mg Tablet 10 Mg PO DAILY 11/26/13 Reported Glimepiride 4 Mg Tablet 4 Mg PO BID 11/26/13 Reported Torsemide 20 Mg Tablet 20 Mg PO BID 11/26/13 Reported Spiriva (Tiotropium [place]) 18 Mcg Cap.w.dev 18 Mcg IH DAILY 11/26/13 Reported Impression . Full note dictated Acute exacerbation of COPD Possible exacerbation CHF KADE SANCHEZ MD Sep 24, 2021 14:28
--- NOTE | 2021-09-24 14:38 | NUR ---
SS following for discharge planning. SS reviewed pt chart and discussed with pt RN. Pt is from home and is currently on BIPAP at 50%. COVID19 negative on rapid test. Pt on IV Rocephin and IV Solu-Medrol. SS will continue to follow for discharge planning.
--- NOTE | 2021-09-24 14:43 | CONS ---
DATE OF CONSULTATION: 09/24/2021 ATTENDING PHYSICIAN: Shaye Azevedo DO. REASON FOR CONSULTATION: The patient is seen in pulmonary consultation at the request of Dr. Azevedo for increasing shortness of air. HISTORY OF PRESENT ILLNESS: The patient is well known to me from previous hospitalization, he has underlying history of obstructive sleep apnea, chronic respiratory failure, normally on 6 liters of oxygen at home. He presented with increasing shortness of breath over the last several weeks. Apparently, his furosemide was changed to torsemide. The patient presented with increasing lower extremity edema, paroxysmal nocturnal dyspnea, dyspnea with exertion, and some atypical chest pain. He had a cough, mostly clear. He was also experiencing some wheezing. No fever or chills, no COVID-19 exposures. REVIEW OF SYSTEMS: As indicated above, otherwise a 10-point system was reviewed and negative, the patient is up to date on COVID-19 vaccination. PAST MEDICAL HISTORY: COPD, chronic respiratory failure, obesity, chronic cor pulmonale, tobacco dependence in remission, type 2 diabetes, chronic heart failure. PAST SURGICAL HISTORY: Previous vasectomy. CURRENT MEDICATIONS: List was reviewed. ALLERGIES: No known drug allergies. HOME MEDICATIONS: List was likewise reviewed. SOCIAL HISTORY: He does not smoke. PHYSICAL EXAMINATION: VITAL SIGNS: Stable. O2 saturation was greater than 92%, currently on BiPAP at 16/8, 50% FiO2. HEENT: Eyes: The sclerae were nonicteric. NECK: Jugular venous distention could not be assessed secondary to body habitus. CHEST: Full expansion. LUNGS: Adequate flow with expiratory wheeze. CARDIOVASCULAR: Regular rate and rhythm with S1, S2, no S3. ABDOMEN: Soft. EXTREMITIES: No clubbing, cyanosis or edema. LABORATORY DATA: Reviewed. White count was 10,000, hemoglobin and hematocrit were noted. Electrolytes were noted. BUN and creatinine were normal. Arterial blood gas, 7.32, PaCO2 of 86, pO2 of 61. IMPRESSION: 1. Acute on chronic hypoxemic hypercapnic respiratory failure. 2. Acute exacerbation of chronic obstructive pulmonary disease. 3. Acute on chronic cor pulmonale. 4. Obesity. 5. Abnormal CT revealing air trapping and bilateral infiltrates compatible with either acute exacerbation of chronic obstructive pulmonary disease or mild vascular congestion, no consolidation, doubt COVID-19. PLAN: 1. Continue BiPAP. 2. Diurese. 3. Empiric antibiotics. 4. Steroids. 5. Follow up on nuclear amplification test for SARS-CoV-2. I do appreciate the privilege in sharing in the patient's care. FADI/ABBIE DR: Tammy TID: [id number]
[2021-09-24 15:06] VITALS: BP 131/66
[2021-09-24] MEDS: TORSEMIDE 20 MG TABLET. PO SCH (16:00)
[2021-09-24] MEDS ORDERED: FUROSEMIDE 40 MG/4 ML VIAL. IVP ONE (16:00)
[2021-09-24 19:26] VITALS: BP 103/58
[2021-09-24] MEDS: BUDESONIDE 0.5 MG/2 ML NEBU. NEB SCH (20:00)
[2021-09-24] MEDS ORDERED: NON FORMULARY ITEM (Fluticasone/Salmeterol (Advair 500-50 Diskus) 1 PUFF) INH SCH (21:00)
[2021-09-24] MEDS: LACTOBACILLUS RHAMNOSUS GG 1 CAPSULE. PO SCH (21:26)
[2021-09-24 23:59] VITALS: BP 93/53
[2021-09-25 03:16] VITALS: BP 98/59
[2021-09-25] MEDS: cefTRIAXone IV Push 1 GM VIAL. IVP SCH (06:31)
[2021-09-25 07:00] VITALS: BP 116/76
[2021-09-25] MEDS: BUDESONIDE 0.5 MG/2 ML NEBU. NEB SCH ×2 (07:54→20:00)
[2021-09-25] MEDS: IPRATRPIUM/ALBUTEROL 0.5/2.5MG 3 ML NEBU. NEB SCH ×4 (07:54→20:00)
[2021-09-25] MEDS: LISINOPRIL 10 MG TABLET PO SCH (09:00)
[2021-09-25] MEDS: methylPREDNISolone SOD SUCC PF 40 MG/ML VIAL. IV SCH ×2 (09:00→20:36)
[2021-09-25] MEDS: TORSEMIDE 20 MG TABLET. PO SCH (09:00)
[2021-09-25] MEDS: LACTOBACILLUS RHAMNOSUS GG 1 CAPSULE. PO SCH ×2 (09:00→20:36)
[2021-09-25] MEDS ORDERED: NON FORMULARY ITEM (Tiotropium Bromide (Spiriva) 18 MCG) IH SCH (09:00)
[2021-09-25] MEDS: GLIMEPIRIDE 2 MG TABLET. PO SCH ×2 (09:00→20:36)
[2021-09-25] MEDS ORDERED: NON FORMULARY ITEM (Empagliflozin/Linagliptin (Glyxambi 25 mg-5 mg Tablet) 1 EACH) PO SCH (09:00)
[2021-09-25] MEDS: ASPIRIN 325 MG TABLET PO SCH (09:00)
[2021-09-25 09:01] LABS: CHOLESTEROL/HDL RATIO 2.9
--- NOTE | 2021-09-25 09:25 | PDOC ---
PULMONARY PROGRESS NOTES DATE: 09/25/21 TIME: 09:24 Subjective Patient resting with BiPAP on, feels slightly better. When he is off of BiPAP he is worse Vitals Vital Signs Date Time Temp Pulse Resp B/P (MAP) Pulse Ox O2 Delivery O2 Flow Rate FiO2 09/25/21 08:00 96 BiPAP/CPAP 09/25/21 07:00 97.8 91 21 116/76 (89) 97.8 ROS: No Chest Pain, No Abdominal Pain, No Increase Cough General: Alert, No acute distress Lungs: Clear, Other Cardiovascular: S1, S2 Abdomen: Soft, Non-tender Neuro Exam: Alert Extremities: No Edema Skin: Warm Labs Laboratory Tests Test 09/23/21 23:15 09/24/21 00:14 09/24/21 01:33 09/24/21 04:55 White Blood Count 10.1 x10^3/uL (4.0-11.0) Red Blood Count 5.02 x10^6/uL (4.30-5.70) Hemoglobin 16.0 g/dL (13.0-17.5) Hematocrit 49.2 % (39.0-53.0) Mean Corpuscular Volume 98 fL (79-100) Mean Corpuscular Hemoglobin 32 pg (25-35) Mean Corpuscular Hemoglobin Concent 33 g/dL (31-37) Red Cell Distribution Width 15.8 % (11.5-14.5) Platelet Count 202 x10^3/uL (140-400) Neutrophils (%) (Auto) 71 % (31-73) Lymphocytes (%) (Auto) 19 % (24-48) Monocytes (%) (Auto) 9 % (0-9) Eosinophils (%) (Auto) 1 % (0-3) Basophils (%) (Auto) 0 % (0-3) Neutrophils # (Auto) 7.2 x10^3/uL (1.8-7.7) Lymphocytes # (Auto) 1.9 x10^3/uL (1.0-4.8) Monocytes # (Auto) 1.0 x10^3/uL (0.0-1.1) Eosinophils # (Auto) 0.1 x10^3/uL (0.0-0.7) Basophils # (Auto) 0.0 x10^3/uL (0.0-0.2) Sodium Level 136 mmol/L (136-145) Potassium Level 4.5 mmol/L (3.5-5.1) Chloride Level 93 mmol/L (98-107) Carbon Dioxide Level 42 mmol/L (21-32) Anion Gap 1 (6-14) Blood Urea Nitrogen 12 mg/dL (8-26) Creatinine 0.9 mg/dL (0.7-1.3) Estimated GFR (Cockcroft-Gault) 87.6 BUN/Creatinine Ratio 13 (6-20) Glucose Level 97 mg/dL (70-99) Calcium Level 8.8 mg/dL (8.5-10.1) Magnesium Level 2.3 mg/dL (1.8-2.4) Total Bilirubin 1.0 mg/dL (0.2-1.0) Aspartate Amino Transf (AST/SGOT) 10 U/L (15-37) Alanine Aminotransferase (ALT/SGPT) 13 U/L (16-63) Alkaline Phosphatase 62 U/L (46-116) Troponin I Quantitative < 0.017 ng/mL (0.000-0.055) < 0.017 ng/mL (0.000-0.055) < 0.017 ng/mL (0.000-0.055) ON-Ord-G-Type Natriuretic Peptide 1354 pg/mL (0-124) Total Protein 7.3 g/dL (6.4-8.2) Albumin 3.4 g/dL (3.4-5.0) Albumin/Globulin Ratio 0.9 (1.0-1.7) Lipase 97 U/L (73-393) O2 Saturation 90 % (92-99) Arterial Blood pH 7.32 (7.35-7.45) Arterial Blood pCO2 at Patient Temp 86 mmHg (35-46) Arterial Blood pO2 at Patient Temp 61 mmHg (75-108) Arterial Blood HCO3 43 mmol/L (21-28) Arterial Blood Base Excess 12 mmol/L (-3-3) FiO2 50 Test 09/24/21 08:18 09/24/21 08:19 09/24/21 11:54 09/24/21 17:18 SARS-CoV-2 RNA (MONIQUE) Negative (Negative) SARS-CoV-2 Antigen (Rapid) Negative (NEGATIVE) Glucose (Fingerstick) 147 mg/dL (70-99) 113 mg/dL (70-99) 98 mg/dL (70-99) Test 09/24/21 21:24 09/25/21 07:29 09/25/21 07:40 Glucose (Fingerstick) 107 mg/dL (70-99) 93 mg/dL (70-99) Triglycerides Level 53 mg/dL (0-150) Cholesterol Level 151 mg/dL (0-200) LDL Cholesterol, Calculated 88 mg/dL (0-100) VLDL Cholesterol, Calculated 11 mg/dL (0-40) Non-HDL Cholesterol Calculated 99 mg/dL (0-129) HDL Cholesterol 52 mg/dL (40-60) Cholesterol/HDL Ratio 2.9 Laboratory Tests Test 09/24/21 11:54 09/24/21 17:18 09/24/21 21:24 09/25/21 07:29 Glucose (Fingerstick) 113 mg/dL (70-99) 98 mg/dL (70-99) 107 mg/dL (70-99) 93 mg/dL (70-99) Test 09/25/21 07:40 Triglycerides Level 53 mg/dL (0-150) Cholesterol Level 151 mg/dL (0-200) LDL Cholesterol, Calculated 88 mg/dL (0-100) VLDL Cholesterol, Calculated 11 mg/dL (0-40) Non-HDL Cholesterol Calculated 99 mg/dL (0-129) HDL Cholesterol 52 mg/dL (40-60) Cholesterol/HDL Ratio 2.9 Medications Active Scripts Medications Dose Route/Sig Max Daily Dose Days Date Category Advair 500-50 Diskus (Fluticasone/Salmeterol) 1 Each Disk.w.dev 1 Puff INH BID 09/24/21 Reported Albuterol Sulfate Neb Soln (Albuterol Sulfate) 2.5 Mg/3 Ml Vial.neb 2.5 Mg NEB PRN Q4-6HRS PRN 06/12/21 Reported Glyxambi 25 mg-5 mg Tablet (Empagliflozin/Linagliptin) 1 Each Tablet 1 Each PO DAILY 01/03/21 Reported [Albuterol Sulfate] 2.5 MG/3 ML Nebu 2.5 Mg NEB PRN Q2HR PRN 09/26/14 Rx Aspirin 325 Mg Tablet 325 Mg PO DAILY 11/26/13 Reported Metformin Hcl Er (Metformin Hcl) 500 Mg Tab.er.24 500 Mg PO BID 11/26/13 Reported Lisinopril 5 Mg Tablet 10 Mg PO DAILY 11/26/13 Reported Glimepiride 4 Mg Tablet 4 Mg PO BID 11/26/13 Reported Torsemide 20 Mg Tablet 20 Mg PO BID 11/26/13 Reported Spiriva (Tiotropium [place]) 18 Mcg Cap.w.dev 18 Mcg IH DAILY 11/26/13 Reported Impression . IMPRESSION: 1. Acute on chronic hypoxemic hypercapnic respiratory failure. 2. Acute exacerbation of chronic obstructive pulmonary disease. 3. Acute on chronic cor pulmonale. 4. Obesity. 5. Abnormal CT revealing air trapping and bilateral infiltrates compatible with either acute exacerbation of chronic obstructive pulmonary disease or mild vascular congestion, no consolidation, doubt COVID-19. Plan . Updated 09/25 Continue BiPAP SARS-CoV-2 testing negative Empiric antibiotics Steroid PLAN: 1. Continue BiPAP. 2. Diurese. 3. Empiric antibiotics. 4. Steroids. 5. Follow up on nuclear amplification test for SARS-CoV-2. I do appreciate the privilege in sharing in the patient's care. KADE SANCHEZ MD Sep 25, 2021 09:25
[2021-09-25 11:00] VITALS: BP 95/57
--- NOTE | 2021-09-25 11:25 | PDOC ---
[facility] [facility] PROGRESS NOTE Date of Service DOS: DATE: 09/25/21 TIME: 11:21 Chief Complaint Chief Complaint Acute on chronic, combined hypoxemic and hypercarbic respiratory respiratory failure. Acute exacerbation COPD CHF, chronic diastolic, BMI 35 History of Present Illness History of Present Illness Admitted for steroids, nebs, abx, BiPAP better this AM Vitals/I&O Vitals/I&O: Vital Signs Date Time Temp Pulse Resp B/P (MAP) Pulse Ox O2 Delivery O2 Flow Rate FiO2 09/25/21 09:00 91 116/76 09/25/21 08:00 Bi-pap 09/25/21 08:00 96 09/25/21 07:00 97.8 21 97.8 I & O 09/24/21 09/24/21 09/25/21 15:00 23:00 07:00 Intake Total 300 ml 500 ml 800 ml Output Total 300 ml 500 ml Balance 300 ml 200 ml 300 ml Physical Exam General: Alert, Oriented X3, Cooperative, mild distress Heart: Regular rate Lungs: Clear, Other Abdomen: Soft, No tenderness Extremities: Other (1+ bilateral LE edema ) Skin: No significant lesion Labs Labs: Laboratory Tests Test 09/24/21 11:54 09/24/21 17:18 09/24/21 21:24 09/25/21 07:29 Glucose (Fingerstick) 113 mg/dL (70-99) 98 mg/dL (70-99) 107 mg/dL (70-99) 93 mg/dL (70-99) Test 09/25/21 07:40 Triglycerides Level 53 mg/dL (0-150) Cholesterol Level 151 mg/dL (0-200) LDL Cholesterol, Calculated 88 mg/dL (0-100) VLDL Cholesterol, Calculated 11 mg/dL (0-40) Non-HDL Cholesterol Calculated 99 mg/dL (0-129) HDL Cholesterol 52 mg/dL (40-60) Cholesterol/HDL Ratio 2.9 Review of Systems Review of Systems: no recent stool,, feels constipated Assessment and Plan Assessmemt and Plan cont current, on tele, he reports he feels better Problems Medical Problems: (1) Hypercapnic respiratory failure Status: Acute (2) Person under investigation for COVID-19 Status: Acute Comment Review of Relevant I have reviewed the following items wade (where applicable) has been applied. Medications: Current Medications Medications (Trade) Dose Ordered Sig/Theresa Route PRN Reason Start Time Stop Time Status Last Admin Dose Admin Aspirin (Jack Aspirin) 325 mg DAILY PO 09/24/21 13:00 09/25/21 09:00 Lisinopril (Prinivil) 10 mg DAILY PO 09/24/21 13:00 09/25/21 09:00 Glimepiride (Amaryl) 4 mg BID PO 09/24/21 13:00 09/25/21 09:00 Methylprednisolone Sodium Succinate (SOLU-Medrol 40MG VIAL) 40 mg BID IV 09/24/21 13:00 09/25/21 09:00 Ceftriaxone Sodium (Rocephin) 1 gm Q24H IVP 09/25/21 06:00 09/25/21 06:31 Lactobacillus Rhamnosus (Culturelle) 1 cap BID PO 09/24/21 21:00 09/25/21 09:00 Furosemide (Lasix) 40 mg 1X ONCE IVP 09/24/21 16:00 09/24/21 16:01 DC 09/24/21 17:14 Justifications for Admission Other Justification Acute hypoxemic respiratory failure WAYLON LONG MD Sep 25, 2021 11:25
[2021-09-25] MEDS ORDERED: POLYETHYLENE GLYCOL 3350 17 GM PACKET. PO ONE (11:30)
--- NOTE | 2021-09-25 12:21 | NUR ---
SS following up with discharge planning. SS reviewed pt chart and discussed with pt RN. Pt is from home and is currently requiring BIPAP at 50%. COVID19 negative. Pt on IV Rocephin and IV Solu-Medrol. Cardiology and Pulmonology consulted. SS will continue to follow for discharge planning.
[2021-09-25] MEDS: DOCUSATE SODIUM 100 MG CAPSULE. PO SCH (12:53)
[2021-09-25 15:00] VITALS: BP 98/61
--- NOTE | 2021-09-25 15:07 | PDOC ---
RAJAT CASTELLANO [employer] T[employer]ER 09/25/21 1507: CARDIO Progress Notes Date and Time Date of Service 09/25/21 Time of Evaluation 1300 Subjective Subjective: Other (not more SOA, LE edema better ) Vitals Vitals Vital Signs Date Time Temp Pulse Resp B/P (MAP) Pulse Ox O2 Delivery O2 Flow Rate FiO2 09/25/21 11:36 97 BiPAP/CPAP 09/25/21 11:00 98.3 96 24 95/57 (70) 98.3 Weight Weight [ ] Input and Output Intake and Output Intake and Output 09/25/21 07:00 Intake Total 1600 ml Output Total 800 ml Balance 800 ml Intake Oral 1600 ml Output Urine Total 800 ml Laboratory Labs Laboratory Tests Test 09/24/21 17:18 09/24/21 21:24 09/25/21 07:29 09/25/21 07:40 Glucose (Fingerstick) 98 mg/dL (70-99) 107 mg/dL (70-99) 93 mg/dL (70-99) Triglycerides Level 53 mg/dL (0-150) Cholesterol Level 151 mg/dL (0-200) LDL Cholesterol, Calculated 88 mg/dL (0-100) VLDL Cholesterol, Calculated 11 mg/dL (0-40) Non-HDL Cholesterol Calculated 99 mg/dL (0-129) HDL Cholesterol 52 mg/dL (40-60) Cholesterol/HDL Ratio 2.9 Physical Exam HEENT: Neck Supple W Full Motion Chest: Symmetric LUNGS: Other (diminished, on BiPAP) Heart: RRR Abdomen: Soft N/T Extremities: Other (1-2+ bilateral LE edema ) Neurology: alert, oriented, follow commands Assessment Assessment 1. Acute on chronic respiratory failure, AE COPD, mild CHF. requiring BiPAP support 2. Mild acute on chronic diastolic CHF; recent echo with preserved LV systolic function. better s/p IV diuresis 3. Chest pain, mixed features. AMI ruled out 4. Hypertension; controlled 5. Hyperlipidemia; LDL 6. Diabetes, II 7. BALTA 8. H/o tobaccosim; in remission Recommendations ASA therapy Will give additional dose of IV Lasix today BiPAP support Ongoing lung optimization Outpatient ischemic evaluation Supportive care Justicifation of Admission Dx: Justifications for Admission: Justification of Admission Dx: Yes Respiratory Failure: Severe Resp Distress DARBY TUTTLE MD 09/26/21 1033: CARDIO Progress Notes Assessment Assessment Patient seen and examined on 09/25/2021. I agree with our nurse practitioners assessment and plan Acute on chronic respiratory failure, AE COPD, mild CHF. requiring BiPAP support. Followed by pulmonary. Mild acute on chronic diastolic CHF; recent echo with preserved LV systolic function. better s/p IV diuresis. Additional Lasix. Chest pain, mixed features. AMI ruled out. Outpatient ischemia evaluation. Hypertension; controlled Hyperlipidemia; LDL Diabetes, II BALTA RAJAT CASTELLANO APRN Sep 25, 2021 15:07 DARBY TUTTLE MD Sep 26, 2021 10:33
[2021-09-25] MEDS ORDERED: POTASSIUM CHLORIDE 20 MEQ TABLET.ER. PO ONE (15:15)
[2021-09-25] MEDS ORDERED: FUROSEMIDE 40 MG/4 ML VIAL. IVP ONE (15:15)
[2021-09-25] MEDS: FUROSEMIDE 40 MG TABLET. PO SCH (16:00)
[2021-09-25 19:00] VITALS: BP 103/67
[2021-09-25 23:00] VITALS: BP 110/67
[2021-09-26 03:00] VITALS: BP 124/71
[2021-09-26] MEDS: cefTRIAXone IV Push 1 GM VIAL. IVP SCH (06:00)
[2021-09-26 07:00] VITALS: BP 93/63
[2021-09-26] MEDS: IPRATRPIUM/ALBUTEROL 0.5/2.5MG 3 ML NEBU. NEB SCH ×4 (07:23→20:22)
[2021-09-26] MEDS: BUDESONIDE 0.5 MG/2 ML NEBU. NEB SCH ×2 (07:23→20:22)
[2021-09-26 07:57] LABS: CALCIUM 9.1 mg/dL (8.5-10.1); CREATININE 0.9 mg/dL (0.7-1.3); GFR 87.6; MAGNESIUM 2.7 mg/dL (1.8-2.4); POTASSIUM 5.3 mmol/L (3.5-5.1)
--- NOTE | 2021-09-26 08:44 | PDOC ---
PULMONARY PROGRESS NOTES DATE: 09/26/21 TIME: 08:44 Subjective Patient feels short of air when he is off of BiPAP Went into A. fib last evening Received digoxin No increasing cough Vitals Vital Signs Date Time Temp Pulse Resp B/P (MAP) Pulse Ox O2 Delivery O2 Flow Rate FiO2 09/26/21 07:29 96 BiPAP/CPAP 09/26/21 07:00 97.6 130 19 93/63 (73) 97.6 ROS: No Chest Pain, No Abdominal Pain, No Increase Cough General: Alert, No acute distress Lungs: Clear, Other Cardiovascular: S1, S2 Abdomen: Soft, Non-tender Neuro Exam: Alert Extremities: No Edema Skin: Warm Labs Laboratory Tests Test 09/24/21 11:54 09/24/21 17:18 09/24/21 21:24 09/25/21 07:29 Glucose (Fingerstick) 113 mg/dL (70-99) 98 mg/dL (70-99) 107 mg/dL (70-99) 93 mg/dL (70-99) Test 09/25/21 07:40 09/25/21 20:10 09/26/21 05:25 09/26/21 08:12 Triglycerides Level 53 mg/dL (0-150) Cholesterol Level 151 mg/dL (0-200) LDL Cholesterol, Calculated 88 mg/dL (0-100) VLDL Cholesterol, Calculated 11 mg/dL (0-40) Non-HDL Cholesterol Calculated 99 mg/dL (0-129) HDL Cholesterol 52 mg/dL (40-60) Cholesterol/HDL Ratio 2.9 Glucose (Fingerstick) 134 mg/dL (70-99) 92 mg/dL (70-99) Sodium Level 131 mmol/L (136-145) Potassium Level 5.3 mmol/L (3.5-5.1) Chloride Level 91 mmol/L (98-107) Carbon Dioxide Level 36 mmol/L (21-32) Anion Gap 4 (6-14) Blood Urea Nitrogen 38 mg/dL (8-26) Creatinine 0.9 mg/dL (0.7-1.3) Estimated GFR (Cockcroft-Gault) 87.6 Glucose Level 90 mg/dL (70-99) Calcium Level 9.1 mg/dL (8.5-10.1) Magnesium Level 2.7 mg/dL (1.8-2.4) Laboratory Tests Test 09/25/21 20:10 09/26/21 05:25 09/26/21 08:12 Glucose (Fingerstick) 134 mg/dL (70-99) 92 mg/dL (70-99) Sodium Level 131 mmol/L (136-145) Potassium Level 5.3 mmol/L (3.5-5.1) Chloride Level 91 mmol/L (98-107) Carbon Dioxide Level 36 mmol/L (21-32) Anion Gap 4 (6-14) Blood Urea Nitrogen 38 mg/dL (8-26) Creatinine 0.9 mg/dL (0.7-1.3) Estimated GFR (Cockcroft-Gault) 87.6 Glucose Level 90 mg/dL (70-99) Calcium Level 9.1 mg/dL (8.5-10.1) Magnesium Level 2.7 mg/dL (1.8-2.4) Medications Active Scripts Medications Dose Route/Sig Max Daily Dose Days Date Category Advair 500-50 Diskus (Fluticasone/Salmeterol) 1 Each Disk.w.dev 1 Puff INH BID 09/24/21 Reported Albuterol Sulfate Neb Soln (Albuterol Sulfate) 2.5 Mg/3 Ml Vial.neb 2.5 Mg NEB PRN Q4-6HRS PRN 06/12/21 Reported Glyxambi 25 mg-5 mg Tablet (Empagliflozin/Linagliptin) 1 Each Tablet 1 Each PO DAILY 01/03/21 Reported [Albuterol Sulfate] 2.5 MG/3 ML Nebu 2.5 Mg NEB PRN Q2HR PRN 09/26/14 Rx Aspirin 325 Mg Tablet 325 Mg PO DAILY 11/26/13 Reported Metformin Hcl Er (Metformin Hcl) 500 Mg Tab.er.24 500 Mg PO BID 11/26/13 Reported Lisinopril 5 Mg Tablet 10 Mg PO DAILY 11/26/13 Reported Glimepiride 4 Mg Tablet 4 Mg PO BID 11/26/13 Reported Torsemide 20 Mg Tablet 20 Mg PO BID 11/26/13 Reported Spiriva (Tiotropium [place]) 18 Mcg Cap.w.dev 18 Mcg IH DAILY 11/26/13 Reported Impression . IMPRESSION: 1. Acute on chronic hypoxemic hypercapnic respiratory failure. 2. Acute exacerbation of chronic obstructive pulmonary disease. 3. Acute on chronic cor pulmonale. 4. Obesity. 5. Abnormal CT revealing air trapping and bilateral infiltrates compatible with either acute exacerbation of chronic obstructive pulmonary disease or mild vascular congestion, no consolidation, doubt COVID-19. 6. New onset atrial fibrillation Plan . Updated 09/[address] Nelson Follow cardiology input PT eval Not ready for discharge today, still short of air, new onset A. fib. Updated 09/25 Continue BiPAP SARS-CoV-2 testing negative Empiric antibiotics Steroid KADE SANCHEZ MD Sep 26, 2021 08:44
[2021-09-26] MEDS: methylPREDNISolone SOD SUCC PF 40 MG/ML VIAL. IV SCH ×2 (09:00→20:05)
[2021-09-26] MEDS: GLIMEPIRIDE 2 MG TABLET. PO SCH ×2 (09:22→20:05)
[2021-09-26] MEDS: LACTOBACILLUS RHAMNOSUS GG 1 CAPSULE. PO SCH ×2 (09:22→20:05)
[2021-09-26] MEDS: DOCUSATE SODIUM 100 MG CAPSULE. PO SCH (09:22)
[2021-09-26] MEDS: ASPIRIN 325 MG TABLET PO SCH (09:22)
[2021-09-26] MEDS: FUROSEMIDE 40 MG TABLET. PO SCH (09:23)
[2021-09-26] MEDS: LISINOPRIL 10 MG TABLET PO SCH (09:24)
[2021-09-26] MEDS ORDERED: DIGOXIN IV 500 MCG/2 ML AMPUL. IV ONE (09:30)
--- NOTE | 2021-09-26 09:33 | PDOC ---
CARDIO Progress Notes Date and Time Date of Service 09/26/2021 Time of Evaluation 0920 Subjective Subjective: No Chest Pain, No shortness of breath, No Palpitations Vitals Vitals Vital Signs Date Time Temp Pulse Resp B/P (MAP) Pulse Ox O2 Delivery O2 Flow Rate FiO2 09/26/21 09:24 130 93/63 09/26/21 07:29 96 BiPAP/CPAP 09/26/21 07:00 97.6 19 97.6 Weight Weight [ ] Input and Output Intake and Output Intake and Output 09/26/21 07:00 Intake Total 2370 ml Output Total 1700 ml Balance 670 ml Intake Oral 2370 ml Output Urine Total 1700 ml Laboratory Labs Laboratory Tests Test 09/25/21 20:10 09/26/21 05:25 09/26/21 08:12 Glucose (Fingerstick) 134 mg/dL (70-99) 92 mg/dL (70-99) Sodium Level 131 mmol/L (136-145) Potassium Level 5.3 mmol/L (3.5-5.1) Chloride Level 91 mmol/L (98-107) Carbon Dioxide Level 36 mmol/L (21-32) Anion Gap 4 (6-14) Blood Urea Nitrogen 38 mg/dL (8-26) Creatinine 0.9 mg/dL (0.7-1.3) Estimated GFR (Cockcroft-Gault) 87.6 Glucose Level 90 mg/dL (70-99) Calcium Level 9.1 mg/dL (8.5-10.1) Magnesium Level 2.7 mg/dL (1.8-2.4) Physical Exam HEENT: Neck Supple W Full Motion Chest: Symmetric LUNGS: Other (diminished) Heart: irregularly irregular Abdomen: Soft N/T Extremities: No Calf Tenderness, Other (1-2+ bilateral LE edema ) Neurology: alert, oriented, follow commands Assessment Assessment 1. Acute on chronic respiratory failure, AECOPD, mild CHF. requiring BiPAP support 2. Mild acute on chronic diastolic CHF; recent echo with preserved LV systolic function 3. Chest pain, mixed features. AMI ruled out 4. Hypertension; at low end 5. Hyperlipidemia 6. Diabetes, II 7. BALTA 8. H/o tobaccosim; in remission 9. Prerenal azotemia with mild hyperkalemia 10. AFIB RVR; new onset confirmed with EKG Recommendations ASA therapy. Dig x1. If AFIB is persistent then will consider for an ticoagulation Lasix therapy. Recheck BMP at noon. Hold lisinopril. 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
[2021-09-26 11:00] VITALS: BP 97/59
[2021-09-26 13:57] LABS: CALCIUM 8.5 mg/dL (8.5-10.1); GFR 77.6; POTASSIUM 5.2 mmol/L (3.5-5.1)
[2021-09-26 15:00] VITALS: BP 108/67
--- NOTE | 2021-09-26 15:29 | PDOC ---
[facility] PROGRESS NOTE Date of Service DOS: DATE: 09/26/21 TIME: 15:28 Chief Complaint Chief Complaint Acute on chronic, combined hypoxemic and hypercarbic respiratory respiratory failure. Acute exacerbation COPD CHF, chronic diastolic, BMI 35 History of Present Illness History of Present Illness continue the steroids, nebs, abx, BiPAP sleeping hard today, still weak better this AM Vitals/I&O Vitals/I&O: Vital Signs Date Time Temp Pulse Resp B/P (MAP) Pulse Ox O2 Delivery O2 Flow Rate FiO2 09/26/21 11:20 96 BiPAP/CPAP 09/26/21 11:00 97.7 118 18 97/59 (72) 97.7 09/26/21 08:00 10.0 I & O 09/25/21 09/25/21 09/26/21 15:00 23:00 07:00 Intake Total 970 ml 500 ml 900 ml Output Total 1000 ml 700 ml Balance 970 ml -500 ml 200 ml Physical Exam General: Alert, Oriented X3, Cooperative, mild distress Heart: Regular rate Lungs: Clear, Other Abdomen: Soft, No tenderness Extremities: Other (1+ bilateral LE edema ) Skin: No significant lesion Labs Labs: Laboratory Tests Test 09/25/21 20:10 09/26/21 05:25 09/26/21 08:12 09/26/21 10:37 Glucose (Fingerstick) 134 mg/dL (70-99) 92 mg/dL (70-99) 114 mg/dL (70-99) Sodium Level 131 mmol/L (136-145) Potassium Level 5.3 mmol/L (3.5-5.1) Chloride Level 91 mmol/L (98-107) Carbon Dioxide Level 36 mmol/L (21-32) Anion Gap 4 (6-14) Blood Urea Nitrogen 38 mg/dL (8-26) Creatinine 0.9 mg/dL (0.7-1.3) Estimated GFR (Cockcroft-Gault) 87.6 Glucose Level 90 mg/dL (70-99) Calcium Level 9.1 mg/dL (8.5-10.1) Magnesium Level 2.7 mg/dL (1.8-2.4) Test 09/26/21 13:35 Sodium Level 132 mmol/L (136-145) Potassium Level 5.2 mmol/L (3.5-5.1) Chloride Level 92 mmol/L (98-107) Carbon Dioxide Level 39 mmol/L (21-32) Anion Gap 1 (6-14) Blood Urea Nitrogen 38 mg/dL (8-26) Creatinine 1.0 mg/dL (0.7-1.3) Estimated GFR (Cockcroft-Gault) 77.6 Glucose Level 138 mg/dL (70-99) Calcium Level 8.5 mg/dL (8.5-10.1) Assessment and Plan Assessmemt and Plan Problems Medical Problems: (1) Hypercapnic respiratory failure Status: Acute (2) Person under investigation for COVID-19 Status: Acute Comment Review of Relevant I have reviewed the following items wade (where applicable) has been applied. Medications: Current Medications Medications (Trade) Dose Ordered Sig/Theresa Route PRN Reason Start Time Stop Time Status Last Admin Dose Admin Furosemide (Lasix) 40 mg DAILY PO 09/25/21 16:00 09/26/21 09:23 Digoxin (Lanoxin) 500 mcg 1X ONCE IV 09/26/21 09:30 09/26/21 09:31 DC 09/26/21 09:43 Justifications for Admission Other Justification Acute hypoxemic respiratory failure WAYLON LONG MD Sep 26, 2021 15:29
[2021-09-26 19:40] VITALS: BP 116/75
[2021-09-26 23:13] VITALS: BP 114/78
[2021-09-27] VITALS (7 sets, daily range): BP systolic 114–149; BP diastolic 65–81
[2021-09-27] MEDS: cefTRIAXone IV Push 1 GM VIAL. IVP SCH (06:08)
[2021-09-27] MEDS: IPRATRPIUM/ALBUTEROL 0.5/2.5MG 3 ML NEBU. NEB SCH (07:33)
[2021-09-27] MEDS: BUDESONIDE 0.5 MG/2 ML NEBU. NEB SCH ×2 (07:33→20:42)
--- NOTE | 2021-09-27 08:14 | PDOC ---
PULMONARY PROGRESS NOTES DATE: 09/27/21 TIME: 08:13 Subjective on BiPAP feels better has home bipap No increasing cough Vitals Vital Signs Date Time Temp Pulse Resp B/P (MAP) Pulse Ox O2 Delivery O2 Flow Rate FiO2 09/27/21 07:33 94 BiPAP/CPAP 09/27/21 03:11 98.1 101 17 120/68 (85) 98.1 09/26/21 20:00 6.0 ROS: No Chest Pain, No Abdominal Pain, No Increase Cough General: Alert, No acute distress Lungs: Other (b lat diminished ) Cardiovascular: S1, S2 Abdomen: Soft, Non-tender Neuro Exam: Alert Extremities: No Edema Skin: Warm Labs Laboratory Tests Test 09/25/21 20:10 09/26/21 05:25 09/26/21 08:12 09/26/21 10:37 Glucose (Fingerstick) 134 mg/dL (70-99) 92 mg/dL (70-99) 114 mg/dL (70-99) Sodium Level 131 mmol/L (136-145) Potassium Level 5.3 mmol/L (3.5-5.1) Chloride Level 91 mmol/L (98-107) Carbon Dioxide Level 36 mmol/L (21-32) Anion Gap 4 (6-14) Blood Urea Nitrogen 38 mg/dL (8-26) Creatinine 0.9 mg/dL (0.7-1.3) Estimated GFR (Cockcroft-Gault) 87.6 Glucose Level 90 mg/dL (70-99) Calcium Level 9.1 mg/dL (8.5-10.1) Magnesium Level 2.7 mg/dL (1.8-2.4) Test 09/26/21 13:35 09/26/21 16:16 09/26/21 20:24 09/27/21 07:40 Sodium Level 132 mmol/L (136-145) Potassium Level 5.2 mmol/L (3.5-5.1) Chloride Level 92 mmol/L (98-107) Carbon Dioxide Level 39 mmol/L (21-32) Anion Gap 1 (6-14) Blood Urea Nitrogen 38 mg/dL (8-26) Creatinine 1.0 mg/dL (0.7-1.3) Estimated GFR (Cockcroft-Gault) 77.6 Glucose Level 138 mg/dL (70-99) Calcium Level 8.5 mg/dL (8.5-10.1) Glucose (Fingerstick) 131 mg/dL (70-99) 129 mg/dL (70-99) 139 mg/dL (70-99) Laboratory Tests Test 09/26/21 10:37 09/26/21 13:35 09/26/21 16:16 09/26/21 20:24 Glucose (Fingerstick) 114 mg/dL (70-99) 131 mg/dL (70-99) 129 mg/dL (70-99) Sodium Level 132 mmol/L (136-145) Potassium Level 5.2 mmol/L (3.5-5.1) Chloride Level 92 mmol/L (98-107) Carbon Dioxide Level 39 mmol/L (21-32) Anion Gap 1 (6-14) Blood Urea Nitrogen 38 mg/dL (8-26) Creatinine 1.0 mg/dL (0.7-1.3) Estimated GFR (Cockcroft-Gault) 77.6 Glucose Level 138 mg/dL (70-99) Calcium Level 8.5 mg/dL (8.5-10.1) Test 09/27/21 07:40 Glucose (Fingerstick) 139 mg/dL (70-99) Medications Active Scripts Medications Dose Route/Sig Max Daily Dose Days Date Category Advair 500-50 Diskus (Fluticasone/Salmeterol) 1 Each Disk.w.dev 1 Puff INH BID 09/24/21 Reported Albuterol Sulfate Neb Soln (Albuterol Sulfate) 2.5 Mg/3 Ml Vial.neb 2.5 Mg NEB PRN Q4-6HRS PRN 06/12/21 Reported Glyxambi 25 mg-5 mg Tablet (Empagliflozin/Linagliptin) 1 Each Tablet 1 Each PO DAILY 01/03/21 Reported [Albuterol Sulfate] 2.5 MG/3 ML Nebu 2.5 Mg NEB PRN Q2HR PRN 09/26/14 Rx Aspirin 325 Mg Tablet 325 Mg PO DAILY 11/26/13 Reported Metformin Hcl Er (Metformin Hcl) 500 Mg Tab.er.24 500 Mg PO BID 11/26/13 Reported Lisinopril 5 Mg Tablet 10 Mg PO DAILY 11/26/13 Reported Glimepiride 4 Mg Tablet 4 Mg PO BID 11/26/13 Reported Torsemide 20 Mg Tablet 20 Mg PO BID 11/26/13 Reported Spiriva (Tiotropium [place]) 18 Mcg Cap.w.dev 18 Mcg IH DAILY 11/26/13 Reported Impression . IMPRESSION: 1. Acute on chronic hypoxemic hypercapnic respiratory failure. 2. Acute exacerbation of chronic obstructive pulmonary disease. 3. Acute on chronic cor pulmonale. 4. Obesity. 5. Abnormal CT revealing air trapping and bilateral infiltrates compatible with either acute exacerbation of chronic obstructive pulmonary disease or mild vascular congestion, no consolidation, doubt COVID-19. 6. new onset afib Plan . 09/27 02 titration change duo neb to atrovent only avoid alb afib w rvr change solumedrol to pred 40 mg daily w taper bipap prn durng day cont at [facility] lose wt follow cardiology rec discussed w pt Updated 09/[address] Nelson Follow cardiology input PT eval Not ready for discharge today, still short of air, new onset A. fib. Updated 09/25 Continue BiPAP SARS-CoV-2 testing negative Empiric antibiotics Steroid GIBSON LYMAN MD Sep 27, 2021 08:14
[2021-09-27] MEDS: ASPIRIN 325 MG TABLET PO SCH (08:26)
[2021-09-27] MEDS: FUROSEMIDE 40 MG TABLET. PO SCH (08:26)
[2021-09-27] MEDS: methylPREDNISolone SOD SUCC PF 40 MG/ML VIAL. IV SCH (08:26)
[2021-09-27] MEDS: GLIMEPIRIDE 2 MG TABLET. PO SCH ×2 (08:26→20:45)
[2021-09-27] MEDS: LACTOBACILLUS RHAMNOSUS GG 1 CAPSULE. PO SCH ×2 (08:26→20:45)
[2021-09-27] MEDS: DOCUSATE SODIUM 100 MG CAPSULE. PO SCH ×2 (08:26→12:45)
[2021-09-27] MEDS: IPRATROPIUM BROMIDE 0.5 MG/2.5 ML NEBU. NEB SCH ×3 (11:34→20:42)
[2021-09-27] MEDS ORDERED: POLYETHYLENE GLYCOL 3350 17 GM PACKET. PO ONE (12:30)
--- NOTE | 2021-09-27 13:24 | PDOC ---
PROGRESS NOTES Date of Service DATE: 09/27/21 TIME: 13:21 Subjective Subjective Patient seen and examined Objective Objective Vital Signs Date Time Temp Pulse Resp B/P (MAP) Pulse Ox O2 Delivery O2 Flow Rate FiO2 09/27/21 11:34 94 BiPAP/CPAP 09/27/21 11:23 96.5 110 25 126/81 (96) 96.5 09/27/21 08:00 6.0 Intake and Output 09/27/21 07:00 Intake Total 860 ml Output Total 2850 ml Balance -1990 ml Intake Oral 860 ml Output Urine Total 2850 ml Physical Exam Abdomen: Normal bowel sounds Heart: Regular rate General: mild distress Lungs: Other (Mildly decreased breath sounds) Assessment Assessment Problems Medical Problems: (1) Hypercapnic respiratory failure Status: Acute (2) Person under investigation for COVID-19 Status: Acute Acute on chronic respiratory failure, AECOPD, mild CHF. requiring BiPAP support. Slowly improving. Followed by pulmonary. Mild acute on chronic diastolic CHF; recent echo with preserved LV systolic function Chest pain, mixed features. AMI ruled out Hypertension; at low end Hyperlipidemia Diabetes, II BALTA H/o tobaccosim; in remission Prerenal azotemia with mild hyperkalemia AFIB RVR; new onset confirmed with EKG. rate is under better control. We will start at least short-term Eliquis and monitor. Comment Review of Relevant I have reviewed the following items wade (where applicable) has been applied. Labs Laboratory Tests Test 09/25/21 20:10 09/26/21 05:25 09/26/21 08:12 09/26/21 10:37 Glucose (Fingerstick) 134 mg/dL (70-99) 92 mg/dL (70-99) 114 mg/dL (70-99) Sodium Level 131 mmol/L (136-145) Potassium Level 5.3 mmol/L (3.5-5.1) Chloride Level 91 mmol/L (98-107) Carbon Dioxide Level 36 mmol/L (21-32) Anion Gap 4 (6-14) Blood Urea Nitrogen 38 mg/dL (8-26) Creatinine 0.9 mg/dL (0.7-1.3) Estimated GFR (Cockcroft-Gault) 87.6 Glucose Level 90 mg/dL (70-99) Calcium Level 9.1 mg/dL (8.5-10.1) Magnesium Level 2.7 mg/dL (1.8-2.4) Test 09/26/21 13:35 09/26/21 16:16 09/26/21 20:24 09/27/21 07:40 Sodium Level 132 mmol/L (136-145) Potassium Level 5.2 mmol/L (3.5-5.1) Chloride Level 92 mmol/L (98-107) Carbon Dioxide Level 39 mmol/L (21-32) Anion Gap 1 (6-14) Blood Urea Nitrogen 38 mg/dL (8-26) Creatinine 1.0 mg/dL (0.7-1.3) Estimated GFR (Cockcroft-Gault) 77.6 Glucose Level 138 mg/dL (70-99) Calcium Level 8.5 mg/dL (8.5-10.1) Glucose (Fingerstick) 131 mg/dL (70-99) 129 mg/dL (70-99) 139 mg/dL (70-99) Test 09/27/21 11:43 Glucose (Fingerstick) 125 mg/dL (70-99) Laboratory Tests Test 09/26/21 13:35 09/26/21 16:16 09/26/21 20:24 09/27/21 07:40 Sodium Level 132 mmol/L (136-145) Potassium Level 5.2 mmol/L (3.5-5.1) Chloride Level 92 mmol/L (98-107) Carbon Dioxide Level 39 mmol/L (21-32) Anion Gap 1 (6-14) Blood Urea Nitrogen 38 mg/dL (8-26) Creatinine 1.0 mg/dL (0.7-1.3) Estimated GFR (Cockcroft-Gault) 77.6 Glucose Level 138 mg/dL (70-99) Calcium Level 8.5 mg/dL (8.5-10.1) Glucose (Fingerstick) 131 mg/dL (70-99) 129 mg/dL (70-99) 139 mg/dL (70-99) Test 09/27/21 11:43 Glucose (Fingerstick) 125 mg/dL (70-99) Medications Current Medications Dexamethasone Sodium Phosphate (Decadron) 10 mg 1X ONCE IV Last administered on 09/23/21at 23:58; Start 09/24/21 at 00:00; Stop 09/24/21 at 00:01; Status DC Albuterol/ Ipratropium (Duoneb) 9 ml 1X ONCE NEB Last administered on 09/23/21at 23:48; Start 09/24/21 at 00:00; Stop 09/24/21 at 00:01; Status DC Diphtheria/ Tetanus/Acell Pertussis (ADACEL TDap SYRINGE) 0.5 ml ONCE ONCE VAX IM ; Start 09/24/21 at 01:00; Stop 09/24/21 at 01:01; Status Cancel Iohexol (Omnipaque 350 Mg/ml) 100 ml 1X ONCE IV Last administered on 09/24/21at 02:30; Start 09/24/21 at 01:30; Stop 09/24/21 at 01:31; Status DC Info (CONTRAST GIVEN -- Rx MONITORING) 1 each PRN DAILY PRN MC SEE COMMENTS; Start 09/24/21 at 01:15; Stop 09/26/21 at 01:14; Status DC Ceftriaxone Sodium (Rocephin) 1 gm 1X ONCE IVP Last administered on 09/24/21at 03:30; Start 09/24/21 at 03:30; Stop 09/24/21 at 03:31; Status DC Azithromycin 250 ml @ 250 mls/hr 1X ONCE IV Last administered on 09/24/21at 03:31; Start 09/24/21 at 03:30; Stop 09/24/21 at 04:29; Status DC Iohexol (Omnipaque 350 Mg/ml) 100 ml STK-MED ONCE .ROUTE ; Start 09/24/21 at 06:23; Stop 09/24/21 at 06:23; Status DC Albuterol Sulfate (Ventolin Neb Soln) 2.5 mg PRN QID PRN NEB SHORTNESS OF BREATH; Start 09/24/21 at 11:45 Aspirin (Jack Aspirin) 325 mg DAILY PO Last administered on 09/27/21at 08:26; Start 09/24/21 at 13:00 Lisinopril (Prinivil) 10 mg DAILY PO Last administered on 09/26/21at 09:24; Start 09/24/21 at 13:00; Stop 09/26/21 at 15:18; Status DC Torsemide (Demadex) 20 mg BID94 PO ; Start 09/24/21 at 16:00; Stop 09/25/21 at 15:53; Status DC Non-Formulary Medication (Empagliflozin/ Linagliptin (Glyxambi 25 mg-5 mg Tablet)) 1 each DAILY PO ; Start 09/25/21 at 09:00; Stop 09/25/21 at 15:36; Status DC Non-Formulary Medication (Fluticasone/ Salmeterol (Advair 500-50 Diskus)) 1 puff BID INH ; Start 09/24/21 at 21:00; Status UNV Glimepiride (Amaryl) 4 mg BID PO Last administered on 09/27/21at 08:26; Start 09/24/21 at 13:00 Non-Formulary Medication (Tiotropium [place] (Spiriva)) 18 mcg DAILY IH ; Start 09/25/21 at 09:00; Status UNV Non-Formulary Medication ([Albuterol Sulfate] ) 2.5 mg PRN Q2HR PRN NEB DYSPNEA; Start 09/24/21 at 11:45; Status UNV Methylprednisolone Sodium Succinate (SOLU-Medrol 40MG VIAL) 40 mg BID IV Last administered on 09/27/21at 08:26; Start 09/24/21 at 13:00; Stop 09/27/21 at 08:37; Status DC Albuterol/ Ipratropium (Duoneb) 3 ml RTQID NEB Last administered on 09/27/21at 07:33; Start 09/24/21 at 12:00; Stop 09/27/21 at 08:37; Status DC Ceftriaxone Sodium (Rocephin) 1 gm Q24H IVP Last administered on 09/27/21at 06:08; Start 09/25/21 at 06:00 Budesonide (Pulmicort) 0.5 mg RTBID NEB Last administered on 09/27/21at 07:33; Start 09/24/21 at 20:00 Lactobacillus Rhamnosus (Culturelle) 1 cap BID PO Last administered on 09/27/21at 08:26; Start 09/24/21 at 21:00 Furosemide (Lasix) 40 mg 1X ONCE IVP Last administered on 09/24/21at 17:14; Start 09/24/21 at 16:00; Stop 09/24/21 at 16:01; Status DC Polyethylene Glycol (miraLAX PACKET) 17 gm 1X ONCE PO Last administered on 09/25/21at 12:53; Start 09/25/21 at 11:30; Stop 09/25/21 at 11:37; Status DC Docusate Sodium (Colace) 100 mg DAILY PO Last administered on 09/27/21at 08:26; Start 09/25/21 at 11:30 Furosemide (Lasix) 40 mg 1X ONCE IVP Last administered on 09/25/21at 16:35; Start 09/25/21 at 15:15; Stop 09/25/21 at 15:35; Status DC Potassium Chloride (Klor-Con) 20 meq 1X ONCE PO Last administered on 09/25/21at 16:34; Start 09/25/21 at 15:15; Stop 09/25/21 at 15:35; Status DC Furosemide (Lasix) 40 mg DAILY PO Last administered on 09/27/21at 08:26; Start 09/25/21 at 16:00 Digoxin (Lanoxin) 500 mcg 1X ONCE IV Last administered on 09/26/21at 09:43; Start 09/26/21 at 09:30; Stop 09/26/21 at 09:31; Status DC Prednisone (Prednisone) 40 mg DAILY PO ; Start 09/28/21 at 09:00 Ipratropium [place] (Atrovent) 0.5 mg RTQID NEB Last administered on 09/27/21at 11:34; Start 09/27/21 at 12:00 Polyethylene Glycol (miraLAX PACKET) 17 gm DAILY PO ; Start 09/28/21 at 09:00 Polyethylene Glycol (miraLAX PACKET) 17 gm 1X ONCE PO Last administered on 09/27/21at 12:44; Start 09/27/21 at 12:30; Stop 09/27/21 at 12:31; Status DC Docusate Sodium (Colace) 100 mg DAILY PO Last administered on 09/27/21at 12:45; Start 09/27/21 at 12:30 Active Scripts Active [Albuterol Sulfate] 2.5 MG/3 ML Nebu 2.5 Mg NEB PRN Q2HR PRN Reported Advair 500-50 Diskus (Fluticasone/Salmeterol) 1 Each Disk.w.dev 1 Puff INH BID Albuterol Sulfate Neb Soln (Albuterol Sulfate) 2.5 Mg/3 Ml Vial.neb 2.5 Mg NEB PRN Q4-6HRS PRN Glyxambi 25 mg-5 mg Tablet (Empagliflozin/Linagliptin) 1 Each Tablet 1 Each PO DAILY Aspirin 325 Mg Tablet 325 Mg PO DAILY Metformin Hcl Er (Metformin Hcl) 500 Mg Tab.er.24 500 Mg PO BID Lisinopril 5 Mg Tablet 10 Mg PO DAILY Glimepiride 4 Mg Tablet 4 Mg PO BID Torsemide 20 Mg Tablet 20 Mg PO BID Spiriva (Tiotropium [place]) 18 Mcg Cap.w.dev 18 Mcg IH DAILY Vitals/I & O Vital Sign - Last 24 Hours 09/26/21 09/26/21 09/26/21 09/26/21 15:00 15:49 19:40 20:00 Temp 97.5 97.8 97.5 97.8 Pulse 95 102 Resp 17 23 B/P (MAP) 108/67 (81) 116/75 (89) Pulse Ox 95 95 96 O2 Delivery Room Air BiPAP/CPAP BiPAP/CPAP Bi-pap O2 Flow Rate 6.0 09/26/21 09/26/21 09/26/21 09/26/21 20:23 20:25 22:05 23:13 Temp 97.7 97.7 Pulse 105 Resp 20 B/P (MAP) 114/78 (90) Pulse Ox 98 98 96 94 O2 Delivery BiPAP/CPAP BiPAP/CPAP BiPAP/CPAP BiPAP/CPAP 09/27/21 09/27/21 09/27/21 09/27/21 00:31 02:44 03:11 04:56 Temp 98.1 98.1 Pulse 101 Resp 17 B/P (MAP) 120/68 (85) Pulse Ox 93 95 98 94 O2 Delivery BiPAP/CPAP BiPAP/CPAP BiPAP/CPAP BiPAP/CPAP 09/27/21 09/27/21 09/27/21 09/27/21 07:00 07:33 08:00 11:23 Temp 96.5 96.5 96.5 96.5 Pulse 90 110 Resp 17 25 B/P (MAP) 117/77 (90) 126/81 (96) Pulse Ox 100 94 98 O2 Delivery BiPAP/CPAP BiPAP/CPAP Bi-pap BiPAP/CPAP O2 Flow Rate 6.0 09/27/21 11:34 Pulse Ox 94 O2 Delivery BiPAP/CPAP Intake and Output 09/26/21 09/26/21 09/27/21 15:00 23:00 07:00 Intake Total 120 ml 740 ml Output Total 900 ml 400 ml 1550 ml Balance -780 ml -400 ml -810 ml Justifications for Admission Other Justification Acute hypoxemic respiratory failure DARBY TUTTLE MD Sep 27, 2021 13:24
--- NOTE | 2021-09-27 13:25 | PDOC ---
[facility] [facility] PROGRESS NOTE Date of Service DOS: DATE: 09/27/21 TIME: 13:24 Chief Complaint Chief Complaint Acute on chronic, combined hypoxemic and hypercarbic respiratory respiratory failure. Acute exacerbation COPD CHF, chronic diastolic, BMI 35 History of Present Illness History of Present Illness 09/27, feeling better, sitting up and eating, On nasal cannula, off BIPAP for now, still very weak continue the steroids, nebs, abx, BiPAP sleeping hard today, still weak better this AM Vitals/I&O Vitals/I&O: Vital Signs Date Time Temp Pulse Resp B/P (MAP) Pulse Ox O2 Delivery O2 Flow Rate FiO2 09/27/21 11:34 94 BiPAP/CPAP 09/27/21 11:23 96.5 110 25 126/81 (96) 96.5 09/27/21 08:00 6.0 l I & O 09/26/21 09/26/21 09/27/21 15:00 23:00 07:00 Intake Total 120 ml 740 ml Output Total 900 ml 400 ml 1550 ml Balance -780 ml -400 ml -810 ml Physical Exam General: mild distress Heart: Regular rate Lungs: Other (b lat diminished ) Abdomen: Normal bowel sounds Extremities: Other (1+ bilateral LE edema ) Skin: No significant lesion Labs Labs: Laboratory Tests Test 09/26/21 13:35 09/26/21 16:16 09/26/21 20:24 09/27/21 07:40 Sodium Level 132 mmol/L (136-145) Potassium Level 5.2 mmol/L (3.5-5.1) Chloride Level 92 mmol/L (98-107) Carbon Dioxide Level 39 mmol/L (21-32) Anion Gap 1 (6-14) Blood Urea Nitrogen 38 mg/dL (8-26) Creatinine 1.0 mg/dL (0.7-1.3) Estimated GFR (Cockcroft-Gault) 77.6 Glucose Level 138 mg/dL (70-99) Calcium Level 8.5 mg/dL (8.5-10.1) Glucose (Fingerstick) 131 mg/dL (70-99) 129 mg/dL (70-99) 139 mg/dL (70-99) Test 09/27/21 11:43 Glucose (Fingerstick) 125 mg/dL (70-99) Assessment and Plan Assessmemt and Plan Problems Medical Problems: (1) Hypercapnic respiratory failure Status: Acute (2) Person under investigation for COVID-19 Status: Acute Comment Review of Relevant I have reviewed the following items wade (where applicable) has been applied. Medications: Current Medications Medications (Trade) Dose Ordered Sig/Theresa Route PRN Reason Start Time Stop Time Status Last Admin Dose Admin Ipratropium [place] (Atrovent) 0.5 mg RTQID NEB 09/27/21 12:00 09/27/21 11:34 Polyethylene Glycol (miraLAX PACKET) 17 gm 1X ONCE PO 09/27/21 12:30 09/27/21 12:31 DC 09/27/21 12:44 Docusate Sodium (Colace) 100 mg DAILY PO 09/27/21 12:30 09/27/21 12:45 Justifications for Admission Other Justification Acute hypoxemic respiratory failure WAYLON LONG MD Sep 27, 2021 13:25
[2021-09-27] MEDS: APIXABAN 5 MG TABLET. PO SCH (20:45)
[2021-09-28 03:25] VITALS: BP 107/76
[2021-09-28 04:03] LABS: BASO % 0 % (0-3); EOS # 0.1 x10^3/uL (0.0-0.7); EOS % 1 % (0-3); HEMOGLOBIN 16.1 g/dL (13.0-17.5); LYMPH # 2.4 x10^3/uL (1.0-4.8); LYMPH % 22 % (24-48); MEAN CORPUSCULAR HEMOGLOBIN 32 pg (25-35); MEAN CORPUSCULAR HGB CONC 33 g/dL (31-37); MEAN CORPUSCULAR VOLUME 98 fL (79-100); MONO # 1.2 x10^3/uL (0.0-1.1); MONO % 11 % (0-9); NEUT # 7.3 x10^3/uL (1.8-7.7); NEUT % 67 % (31-73); PLATELET COUNT 206 x10^3/uL (140-400); RED BLOOD COUNT 5.01 x10^6/uL (4.30-5.70); RED CELL DISTRIBUTION WIDTH 15.5 % (11.5-14.5)
[2021-09-28 04:16] LABS: BLOOD UREA NITROGEN 26 mg/dL (8-26); CALCIUM 8.9 mg/dL (8.5-10.1); CARBON DIOXIDE 42 mmol/L (21-32); CHLORIDE 96 mmol/L (98-107); CREATININE 0.8 mg/dL (0.7-1.3); GFR 100.4; GLUCOSE 91 mg/dL (70-99); POTASSIUM 4.6 mmol/L (3.5-5.1); SODIUM 137 mmol/L (136-145)
[2021-09-28] MEDS: cefTRIAXone IV Push 1 GM VIAL. IVP SCH (06:37)
[2021-09-28 07:00] VITALS: BP 124/71
[2021-09-28] MEDS: IPRATROPIUM BROMIDE 0.5 MG/2.5 ML NEBU. NEB SCH ×4 (07:02→20:01)
[2021-09-28] MEDS: BUDESONIDE 0.5 MG/2 ML NEBU. NEB SCH ×2 (07:02→20:01)
--- NOTE | 2021-09-28 08:06 | PDOC ---
PULMONARY PROGRESS NOTES DATE: 09/28/21 TIME: 08:04 Subjective on BiPAP overnight during day on 02 feels better has home bipap No increasing cough Vitals Vital Signs Date Time Temp Pulse Resp B/P (MAP) Pulse Ox O2 Delivery O2 Flow Rate FiO2 09/28/21 07:04 95 BiPAP/CPAP 09/28/21 03:25 97.7 112 18 107/76 (86) 97.7 09/27/21 20:48 8.0 ROS: No Chest Pain, No Abdominal Pain, No Increase Cough General: Alert, No acute distress Lungs: Other (b lat diminished ) Cardiovascular: Other (irreg irreg) Abdomen: Soft, Non-tender Neuro Exam: Alert Extremities: No Edema Skin: Warm Labs Laboratory Tests Test 09/26/21 08:12 09/26/21 10:37 09/26/21 13:35 09/26/21 16:16 Glucose (Fingerstick) 92 mg/dL (70-99) 114 mg/dL (70-99) 131 mg/dL (70-99) Sodium Level 132 mmol/L (136-145) Potassium Level 5.2 mmol/L (3.5-5.1) Chloride Level 92 mmol/L (98-107) Carbon Dioxide Level 39 mmol/L (21-32) Anion Gap 1 (6-14) Blood Urea Nitrogen 38 mg/dL (8-26) Creatinine 1.0 mg/dL (0.7-1.3) Estimated GFR (Cockcroft-Gault) 77.6 Glucose Level 138 mg/dL (70-99) Calcium Level 8.5 mg/dL (8.5-10.1) Test 09/26/21 20:24 09/27/21 07:40 09/27/21 11:43 09/27/21 16:28 Glucose (Fingerstick) 129 mg/dL (70-99) 139 mg/dL (70-99) 125 mg/dL (70-99) 169 mg/dL (70-99) Test 09/27/21 20:26 09/28/21 03:40 09/28/21 07:53 Glucose (Fingerstick) 126 mg/dL (70-99) 62 mg/dL (70-99) White Blood Count 11.0 x10^3/uL (4.0-11.0) Red Blood Count 5.01 x10^6/uL (4.30-5.70) Hemoglobin 16.1 g/dL (13.0-17.5) Hematocrit 49.0 % (39.0-53.0) Mean Corpuscular Volume 98 fL (79-100) Mean Corpuscular Hemoglobin 32 pg (25-35) Mean Corpuscular Hemoglobin Concent 33 g/dL (31-37) Red Cell Distribution Width 15.5 % (11.5-14.5) Platelet Count 206 x10^3/uL (140-400) Neutrophils (%) (Auto) 67 % (31-73) Lymphocytes (%) (Auto) 22 % (24-48) Monocytes (%) (Auto) 11 % (0-9) Eosinophils (%) (Auto) 1 % (0-3) Basophils (%) (Auto) 0 % (0-3) Neutrophils # (Auto) 7.3 x10^3/uL (1.8-7.7) Lymphocytes # (Auto) 2.4 x10^3/uL (1.0-4.8) Monocytes # (Auto) 1.2 x10^3/uL (0.0-1.1) Eosinophils # (Auto) 0.1 x10^3/uL (0.0-0.7) Basophils # (Auto) 0.0 x10^3/uL (0.0-0.2) Sodium Level 137 mmol/L (136-145) Potassium Level 4.6 mmol/L (3.5-5.1) Chloride Level 96 mmol/L (98-107) Carbon Dioxide Level 42 mmol/L (21-32) Anion Gap (6-14) Blood Urea Nitrogen 26 mg/dL (8-26) Creatinine 0.8 mg/dL (0.7-1.3) Estimated GFR (Cockcroft-Gault) 100.4 Glucose Level 91 mg/dL (70-99) Calcium Level 8.9 mg/dL (8.5-10.1) Laboratory Tests Test 09/27/21 11:43 09/27/21 16:28 09/27/21 20:26 09/28/21 03:40 Glucose (Fingerstick) 125 mg/dL (70-99) 169 mg/dL (70-99) 126 mg/dL (70-99) White Blood Count 11.0 x10^3/uL (4.0-11.0) Red Blood Count 5.01 x10^6/uL (4.30-5.70) Hemoglobin 16.1 g/dL (13.0-17.5) Hematocrit 49.0 % (39.0-53.0) Mean Corpuscular Volume 98 fL (79-100) Mean Corpuscular Hemoglobin 32 pg (25-35) Mean Corpuscular Hemoglobin Concent 33 g/dL (31-37) Red Cell Distribution Width 15.5 % (11.5-14.5) Platelet Count 206 x10^3/uL (140-400) Neutrophils (%) (Auto) 67 % (31-73) Lymphocytes (%) (Auto) 22 % (24-48) Monocytes (%) (Auto) 11 % (0-9) Eosinophils (%) (Auto) 1 % (0-3) Basophils (%) (Auto) 0 % (0-3) Neutrophils # (Auto) 7.3 x10^3/uL (1.8-7.7) Lymphocytes # (Auto) 2.4 x10^3/uL (1.0-4.8) Monocytes # (Auto) 1.2 x10^3/uL (0.0-1.1) Eosinophils # (Auto) 0.1 x10^3/uL (0.0-0.7) Basophils # (Auto) 0.0 x10^3/uL (0.0-0.2) Sodium Level 137 mmol/L (136-145) Potassium Level 4.6 mmol/L (3.5-5.1) Chloride Level 96 mmol/L (98-107) Carbon Dioxide Level 42 mmol/L (21-32) Anion Gap (6-14) Blood Urea Nitrogen 26 mg/dL (8-26) Creatinine 0.8 mg/dL (0.7-1.3) Estimated GFR (Cockcroft-Gault) 100.4 Glucose Level 91 mg/dL (70-99) Calcium Level 8.9 mg/dL (8.5-10.1) Test 09/28/21 07:53 Glucose (Fingerstick) 62 mg/dL (70-99) Medications Active Scripts Medications Dose Route/Sig Max Daily Dose Days Date Category Advair 500-50 Diskus (Fluticasone/Salmeterol) 1 Each Disk.w.dev 1 Puff INH BID 09/24/21 Reported Albuterol Sulfate Neb Soln (Albuterol Sulfate) 2.5 Mg/3 Ml Vial.neb 2.5 Mg NEB PRN Q4-6HRS PRN 06/12/21 Reported Glyxambi 25 mg-5 mg Tablet (Empagliflozin/Linagliptin) 1 Each Tablet 1 Each PO DAILY 01/03/21 Reported [Albuterol Sulfate] 2.5 MG/3 ML Nebu 2.5 Mg NEB PRN Q2HR PRN 09/26/14 Rx Aspirin 325 Mg Tablet 325 Mg PO DAILY 11/26/13 Reported Metformin Hcl Er (Metformin Hcl) 500 Mg Tab.er.24 500 Mg PO BID 11/26/13 Reported Lisinopril 5 Mg Tablet 10 Mg PO DAILY 11/26/13 Reported Glimepiride 4 Mg Tablet 4 Mg PO BID 11/26/13 Reported Torsemide 20 Mg Tablet 20 Mg PO BID 11/26/13 Reported Spiriva (Tiotropium [place]) 18 Mcg Cap.w.dev 18 Mcg IH DAILY 11/26/13 Reported Impression . IMPRESSION: 1. Acute on chronic hypoxemic hypercapnic respiratory failure. 2. Acute exacerbation of chronic obstructive pulmonary disease. 3. Acute on chronic cor pulmonale. 4. Obesity. 5. Abnormal CT revealing air trapping and bilateral infiltrates compatible with either acute exacerbation of chronic obstructive pulmonary disease or mild vascular congestion, no consolidation, doubt COVID-19. 6. new onset afib Plan . 09/28 02 titration atrovent only avoid alb had afib w rvr still in afib rate controlled AC per cardiology pred 40 mg daily w taper bipap prn during day cont at night lose wt follow cardiology rec discussed w pt/rn 09/27 02 titration change duo neb to atrovent only avoid alb afib w rvr change solumedrol to pred 40 mg daily w taper [facility] rec discussed w pt Updated 09/[address] Nelson Follow cardiology input PT eval Not ready for discharge today, still short of air, new onset A. fib. Updated 09/25 Continue BiPAP SARS-CoV-2 testing negative Empiric antibiotics Steroid GIBSON LYMAN MD Sep 28, 2021 08:06
[2021-09-28] MEDS: FUROSEMIDE 40 MG TABLET. PO SCH (09:01)
[2021-09-28] MEDS: GLIMEPIRIDE 2 MG TABLET. PO SCH ×2 (09:01→21:16)
[2021-09-28] MEDS: APIXABAN 5 MG TABLET. PO SCH ×2 (09:02→21:16)
[2021-09-28] MEDS: DOCUSATE SODIUM 100 MG CAPSULE. PO SCH (09:02)
[2021-09-28] MEDS: LACTOBACILLUS RHAMNOSUS GG 1 CAPSULE. PO SCH ×2 (09:02→21:16)
[2021-09-28] MEDS: POLYETHYLENE GLYCOL 3350 17 GM PACKET. PO SCH (09:02)
[2021-09-28] MEDS: predniSONE 20 MG TABLET PO SCH (09:02)
[2021-09-28] MEDS: ASPIRIN 325 MG TABLET PO SCH (09:02)
--- NOTE | 2021-09-28 09:13 | PDOC ---
[facility] [facility] PROGRESS NOTE Date of Service DOS: DATE: 09/28/21 TIME: 09:12 Chief Complaint Chief Complaint acute diastolic CHF, atrial fibrillation with RVR, new Acute on chronic, combined hypoxemic and hypercarbic respiratory respiratory failure. Acute exacerbation COPD CHF, chronic diastolic, BMI 35 History of Present Illness History of Present Illness start cardizem po and give IV metopolol x1, cont current othere strenght better, breathing easier, 09/27, feeling better, sitting up and eating, On nasal cannula, off BIPAP for now, still very weak continue the steroids, nebs, abx, BiPAP sleeping hard today, still weak better this AM Vitals/I&O Vitals/I&O: Vital Signs Date Time Temp Pulse Resp B/P (MAP) Pulse Ox O2 Delivery O2 Flow Rate FiO2 09/28/21 09:05 94 BiPAP/CPAP 09/28/21 03:25 97.7 112 18 107/76 (86) 97.7 09/27/21 20:48 8.0 I & O 09/27/21 09/27/21 09/28/21 15:00 23:00 07:00 Intake Total 350 ml 60 ml Output Total 2000 ml 2075 ml 800 ml Balance -1650 ml -2015 ml -800 ml Physical Exam General: Alert, Oriented X3, Cooperative, No acute distress Heart: Other (irreg, irreg, tachy, pulse deficit < 20) Lungs: Other (b lat diminished ) Abdomen: Normal bowel sounds Extremities: No cyanosis, Other (1+ bilateral LE edema ) Skin: No rashes, No breakdown, No significant lesion Labs Labs: Laboratory Tests Test 09/27/21 11:43 09/27/21 16:28 09/27/21 20:26 09/28/21 03:40 Glucose (Fingerstick) 125 mg/dL (70-99) 169 mg/dL (70-99) 126 mg/dL (70-99) White Blood Count 11.0 x10^3/uL (4.0-11.0) Red Blood Count 5.01 x10^6/uL (4.30-5.70) Hemoglobin 16.1 g/dL (13.0-17.5) Hematocrit 49.0 % (39.0-53.0) Mean Corpuscular Volume 98 fL (79-100) Mean Corpuscular Hemoglobin 32 pg (25-35) Mean Corpuscular Hemoglobin Concent 33 g/dL (31-37) Red Cell Distribution Width 15.5 % (11.5-14.5) Platelet Count 206 x10^3/uL (140-400) Neutrophils (%) (Auto) 67 % (31-73) Lymphocytes (%) (Auto) 22 % (24-48) Monocytes (%) (Auto) 11 % (0-9) Eosinophils (%) (Auto) 1 % (0-3) Basophils (%) (Auto) 0 % (0-3) Neutrophils # (Auto) 7.3 x10^3/uL (1.8-7.7) Lymphocytes # (Auto) 2.4 x10^3/uL (1.0-4.8) Monocytes # (Auto) 1.2 x10^3/uL (0.0-1.1) Eosinophils # (Auto) 0.1 x10^3/uL (0.0-0.7) Basophils # (Auto) 0.0 x10^3/uL (0.0-0.2) Sodium Level 137 mmol/L (136-145) Potassium Level 4.6 mmol/L (3.5-5.1) Chloride Level 96 mmol/L (98-107) Carbon Dioxide Level 42 mmol/L (21-32) Anion Gap (6-14) Blood Urea Nitrogen 26 mg/dL (8-26) Creatinine 0.8 mg/dL (0.7-1.3) Estimated GFR (Cockcroft-Gault) 100.4 Glucose Level 91 mg/dL (70-99) Calcium Level 8.9 mg/dL (8.5-10.1) Test 09/28/21 07:53 Glucose (Fingerstick) 62 mg/dL (70-99) Review of Systems Review of Systems: cough, weaikness, has not stooled, getting bowel regimen Assessment and Plan Assessmemt and Plan Problems Medical Problems: (1) Hypercapnic respiratory failure Status: Acute (2) Person under investigation for COVID-19 Status: Acute Comment Review of Relevant I have reviewed the following items wade (where applicable) has been applied. Medications: Current Medications Medications (Trade) Dose Ordered Sig/Theresa Route PRN Reason Start Time Stop Time Status Last Admin Dose Admin Prednisone (Prednisone) 40 mg DAILY PO 09/28/21 09:00 09/28/21 09:02 Ipratropium [place] (Atrovent) 0.5 mg RTQID NEB 09/27/21 12:00 09/28/21 07:02 Polyethylene Glycol (miraLAX PACKET) 17 gm DAILY PO 09/28/21 09:00 09/28/21 09:02 Polyethylene Glycol (miraLAX PACKET) 17 gm 1X ONCE PO 09/27/21 12:30 09/27/21 12:31 DC 09/27/21 12:44 Docusate Sodium (Colace) 100 mg DAILY PO 09/27/21 12:30 09/28/21 09:02 Apixaban (Eliquis) 5 mg BID PO 09/27/21 21:00 09/28/21 09:02 Justifications for Admission Other Justification Acute hypoxemic respiratory failure WAYLON LONG MD Sep 28, 2021 09:13
[2021-09-28] MEDS ORDERED: METOPROLOL IV PUSH 5 MG/5 ML VIAL. IVP ONE (09:15)
[2021-09-28] MEDS: dilTIAZem HCL 30 MG TABLET PO SCH ×3 (09:27→21:23)
[2021-09-28 11:00] VITALS: BP 115/64
[2021-09-28 15:00] VITALS: BP 123/73
--- NOTE | 2021-09-28 17:02 | PDOC ---
PROGRESS NOTES Date of Service DATE: 09/28/21 TIME: 17:01 Subjective Subjective Patient seen and examined He is feeling mildly better today. Objective Objective Vital Signs Date Time Temp Pulse Resp B/P (MAP) Pulse Ox O2 Delivery O2 Flow Rate FiO2 09/28/21 15:18 95 BiPAP/CPAP 09/28/21 15:00 97.4 97 19 123/73 (90) 97.4 09/28/21 08:00 8.0 Intake and Output 09/28/21 07:00 Intake Total 410 ml Output Total 4875 ml Balance -4465 ml Intake Oral 410 ml Output Urine Total 4875 ml Physical Exam Abdomen: Normal bowel sounds Heart: Other (Irregularly irregular) General: No acute distress Lungs: Other (Mildly decreased breath sounds) Assessment Assessment Problems Medical Problems: (1) Hypercapnic respiratory failure Status: Acute (2) Person under investigation for COVID-19 Status: Acute Acute on chronic respiratory failure, AECOPD, mild CHF. requiring BiPAP support. Slowly improving. Followed by pulmonary. Mild acute on chronic diastolic CHF; recent echo with preserved LV systolic function Chest pain, mixed features. AMI ruled out Hypertension; mildly improved Hyperlipidemia Diabetes, II BALTA H/o tobaccosim; in remission Prerenal azotemia with mild hyperkalemia. Monitoring lab. AFIB RVR; new onset confirmed with EKG. rate is under better control. Eliquis has been started. Comment Review of Relevant I have reviewed the following items wade (where applicable) has been applied. Labs Laboratory Tests Test 09/26/21 20:24 09/27/21 07:40 09/27/21 11:43 09/27/21 16:28 Glucose (Fingerstick) 129 mg/dL (70-99) 139 mg/dL (70-99) 125 mg/dL (70-99) 169 mg/dL (70-99) Test 09/27/21 20:26 09/28/21 03:40 09/28/21 07:53 09/28/21 12:11 Glucose (Fingerstick) 126 mg/dL (70-99) 62 mg/dL (70-99) 99 mg/dL (70-99) White Blood Count 11.0 x10^3/uL (4.0-11.0) Red Blood Count 5.01 x10^6/uL (4.30-5.70) Hemoglobin 16.1 g/dL (13.0-17.5) Hematocrit 49.0 % (39.0-53.0) Mean Corpuscular Volume 98 fL (79-100) Mean Corpuscular Hemoglobin 32 pg (25-35) Mean Corpuscular Hemoglobin Concent 33 g/dL (31-37) Red Cell Distribution Width 15.5 % (11.5-14.5) Platelet Count 206 x10^3/uL (140-400) Neutrophils (%) (Auto) 67 % (31-73) Lymphocytes (%) (Auto) 22 % (24-48) Monocytes (%) (Auto) 11 % (0-9) Eosinophils (%) (Auto) 1 % (0-3) Basophils (%) (Auto) 0 % (0-3) Neutrophils # (Auto) 7.3 x10^3/uL (1.8-7.7) Lymphocytes # (Auto) 2.4 x10^3/uL (1.0-4.8) Monocytes # (Auto) 1.2 x10^3/uL (0.0-1.1) Eosinophils # (Auto) 0.1 x10^3/uL (0.0-0.7) Basophils # (Auto) 0.0 x10^3/uL (0.0-0.2) Sodium Level 137 mmol/L (136-145) Potassium Level 4.6 mmol/L (3.5-5.1) Chloride Level 96 mmol/L (98-107) Carbon Dioxide Level 42 mmol/L (21-32) Anion Gap (6-14) Blood Urea Nitrogen 26 mg/dL (8-26) Creatinine 0.8 mg/dL (0.7-1.3) Estimated GFR (Cockcroft-Gault) 100.4 Glucose Level 91 mg/dL (70-99) Calcium Level 8.9 mg/dL (8.5-10.1) Test 09/28/21 16:54 Glucose (Fingerstick) 136 mg/dL (70-99) Laboratory Tests Test 09/27/21 20:26 09/28/21 03:40 09/28/21 07:53 09/28/21 12:11 Glucose (Fingerstick) 126 mg/dL (70-99) 62 mg/dL (70-99) 99 mg/dL (70-99) White Blood Count 11.0 x10^3/uL (4.0-11.0) Red Blood Count 5.01 x10^6/uL (4.30-5.70) Hemoglobin 16.1 g/dL (13.0-17.5) Hematocrit 49.0 % (39.0-53.0) Mean Corpuscular Volume 98 fL (79-100) Mean Corpuscular Hemoglobin 32 pg (25-35) Mean Corpuscular Hemoglobin Concent 33 g/dL (31-37) Red Cell Distribution Width 15.5 % (11.5-14.5) Platelet Count 206 x10^3/uL (140-400) Neutrophils (%) (Auto) 67 % (31-73) Lymphocytes (%) (Auto) 22 % (24-48) Monocytes (%) (Auto) 11 % (0-9) Eosinophils (%) (Auto) 1 % (0-3) Basophils (%) (Auto) 0 % (0-3) Neutrophils # (Auto) 7.3 x10^3/uL (1.8-7.7) Lymphocytes # (Auto) 2.4 x10^3/uL (1.0-4.8) Monocytes # (Auto) 1.2 x10^3/uL (0.0-1.1) Eosinophils # (Auto) 0.1 x10^3/uL (0.0-0.7) Basophils # (Auto) 0.0 x10^3/uL (0.0-0.2) Sodium Level 137 mmol/L (136-145) Potassium Level 4.6 mmol/L (3.5-5.1) Chloride Level 96 mmol/L (98-107) Carbon Dioxide Level 42 mmol/L (21-32) Anion Gap (6-14) Blood Urea Nitrogen 26 mg/dL (8-26) Creatinine 0.8 mg/dL (0.7-1.3) Estimated GFR (Cockcroft-Gault) 100.4 Glucose Level 91 mg/dL (70-99) Calcium Level 8.9 mg/dL (8.5-10.1) Test 09/28/21 16:54 Glucose (Fingerstick) 136 mg/dL (70-99) Medications Current Medications Dexamethasone Sodium Phosphate (Decadron) 10 mg 1X ONCE IV Last administered on 09/23/21at 23:58; Start 09/24/21 at 00:00; Stop 09/24/21 at 00:01; Status DC Albuterol/ Ipratropium (Duoneb) 9 ml 1X ONCE NEB Last administered on 09/23/21at 23:48; Start 09/24/21 at 00:00; Stop 09/24/21 at 00:01; Status DC Diphtheria/ Tetanus/Acell Pertussis (ADACEL TDap SYRINGE) 0.5 ml ONCE ONCE VAX IM ; Start 09/24/21 at 01:00; Stop 09/24/21 at 01:01; Status Cancel Iohexol (Omnipaque 350 Mg/ml) 100 ml 1X ONCE IV Last administered on 09/24/21at 02:30; Start 09/24/21 at 01:30; Stop 09/24/21 at 01:31; Status DC Info (CONTRAST GIVEN -- Rx MONITORING) 1 each PRN DAILY PRN MC SEE COMMENTS; Start 09/24/21 at 01:15; Stop 09/26/21 at 01:14; Status DC Ceftriaxone Sodium (Rocephin) 1 gm 1X ONCE IVP Last administered on 09/24/21at 03:30; Start 09/24/21 at 03:30; Stop 09/24/21 at 03:31; Status DC Azithromycin 250 ml @ 250 mls/hr 1X ONCE IV Last administered on 09/24/21at 03:31; Start 09/24/21 at 03:30; Stop 09/24/21 at 04:29; Status DC Iohexol (Omnipaque 350 Mg/ml) 100 ml STK-MED ONCE .ROUTE ; Start 09/24/21 at 06:23; Stop 09/24/21 at 06:23; Status DC Albuterol Sulfate (Ventolin Neb Soln) 2.5 mg PRN QID PRN NEB SHORTNESS OF CONNOR TH; Start 09/24/21 at 11:45 Aspirin (Jack Aspirin) 325 mg DAILY PO Last administered on 09/28/21at 09:02; Start 09/24/21 at 13:00 Lisinopril (Prinivil) 10 mg DAILY PO Last administered on 09/26/21at 09:24; Start 09/24/21 at 13:00; Stop 09/26/21 at 15:18; Status DC Torsemide (Demadex) 20 mg BID94 PO ; Start 09/24/21 at 16:00; Stop 09/25/21 at 15:53; Status DC Non-Formulary Medication (Empagliflozin/ Linagliptin (Glyxambi 25 mg-5 mg Tablet)) 1 each DAILY PO ; Start 09/25/21 at 09:00; Stop 09/25/21 at 15:36; Status DC Non-Formulary Medication (Fluticasone/ Salmeterol (Advair 500-50 Diskus)) 1 puff BID INH ; Start 09/24/21 at 21:00; Status UNV Glimepiride (Amaryl) 4 mg BID PO Last administered on 09/28/21at 09:01; Start 09/24/21 at 13:00 Non-Formulary Medication (Tiotropium [place] (Spiriva)) 18 mcg DAILY IH ; Start 09/25/21 at 09:00; Status UNV Non-Formulary Medication ([Albuterol Sulfate] ) 2.5 mg PRN Q2HR PRN NEB DYSPNEA; Start 09/24/21 at 11:45; Status UNV Methylprednisolone Sodium Succinate (SOLU-Medrol 40MG VIAL) 40 mg BID IV Last administered on 09/27/21at 08:26; Start 09/24/21 at 13:00; Stop 09/27/21 at 0 8:37; Status DC Albuterol/ Ipratropium (Duoneb) 3 ml RTQID NEB Last administered on 09/27/21at 07:33; Start 09/24/21 at 12:00; Stop 09/27/21 at 08:37; Status DC Ceftriaxone Sodium (Rocephin) 1 gm Q24H IVP Last administered on 09/28/21at 06:37; Start 09/25/21 at 06:00 Budesonide (Pulmicort) 0.5 mg RTBID NEB Last administered on 09/28/21at 07:02; Start 09/24/21 at 20:00 Lactobacillus Rhamnosus (Culturelle) 1 cap BID PO Last administered on 09/28/21at 09:02; Start 09/24/21 at 21:00 Furosemide (Lasix) 40 mg 1X ONCE IVP Last administered on 09/24/21 17:14; Start 09/24/21 at 16:00; Stop 09/24/21 at 16:01; Status DC Polyethylene Glycol (miraLAX PACKET) 17 gm 1X ONCE PO Last administered on 09/25/21 12:53; Start 09/25/21 at 11:30; Stop 09/25/21 at 11:37; Status DC Docusate Sodium (Colace) 100 mg DAILY PO Last administered on 09/27/21at 08:26; Start 09/25/21 at 11:30; Stop 09/27/21 at 15:13; Status DC Furosemide (Lasix) 40 mg 1X ONCE IVP Last administered on 09/25/21 16:35; Start 09/25/21 at 15:15; Stop 09/25/21 at 15:35; Status DC Potassium Chloride (Klor-Con) 20 meq 1X ONCE PO Last administered on 16:34; Start 09/25/21 at 15:15; Stop 09/25/21 at 15:35; Status DC Furosemide (Lasix) 40 mg DAILY PO Last administered on 09/28/21 09:01; Start 09/25/21 at 16:00 Digoxin (Lanoxin) 500 mcg 1X ONCE IV Last administered on 09/26/21 09:43; Start 09/26/21 at 09:30; Stop 09/26/21 at 09:31; Status DC Prednisone (Prednisone) 40 mg DAILY PO Last administered on 09/28/21 09:02; Start 09/28/21 at 09:00 Ipratropium [place] (Atrovent) 0.5 mg RTQID NEB Last administered on 09/28/21at 15:18; Start 09/27/21 at 12:00 Polyethylene Glycol (miraLAX PACKET) 17 gm DAILY PO Last administered on 09/28/21 09:02; Start 09/28/21 at 09:00 Polyethylene Glycol (miraLAX PACKET) 17 gm 1X ONCE PO Last administered on 09/27/21at 12:44; Start 09/27/21 at 12:30; Stop 09/27/21 at 12:31; Status DC Docusate Sodium (Colace) 100 mg DAILY PO Last administered on 09/28/21 09:02; Start 09/27/21 at 12:30 Apixaban (Eliquis) 5 mg BID PO Last administered on 09/28/21at 09:02; Start 09/27/21 at 21:00 Metoprolol Tartrate (Lopressor Vial) 5 mg 1X ONCE IVP Last administered on 09/28/21at 09:27; Start 09/28/21 at 09:15; Stop 09/28/21 at 09:16; Status DC Diltiazem HCl (Cardizem) 60 mg Q8HRS PO Last administered on 09/28/21at 13:55; Start 09/28/21 at 09:15 Active Scripts Active [Albuterol Sulfate] 2.5 MG/3 ML Nebu 2.5 Mg NEB PRN Q2HR PRN Reported Advair 500-50 Diskus (Fluticasone/Salmeterol) 1 Each Disk.w.dev 1 Puff INH BID Albuterol Sulfate Neb Soln (Albuterol Sulfate) 2.5 Mg/3 Ml Vial.neb 2.5 Mg NEB PRN Q4-6HRS PRN Glyxambi 25 mg-5 mg Tablet (Empagliflozin/Linagliptin) 1 Each Tablet 1 Each PO DAILY Aspirin 325 Mg Tablet 325 Mg PO DAILY Metformin Hcl Er (Metformin Hcl) 500 Mg Tab.er.24 500 Mg PO BID Lisinopril 5 Mg Tablet 10 Mg PO DAILY Glimepiride 4 Mg Tablet 4 Mg PO BID Torsemide 20 Mg Tablet 20 Mg PO BID Spiriva (Tiotropium [place]) 18 Mcg Cap.w.dev 18 Mcg IH DAILY Vitals/I & O Vital Sign - Last 24 Hours 09/27/21 09/27/21 09/27/21 09/27/21 19:25 20:00 20:48 22:00 Temp 97.6 97.6 Pulse 117 Resp 18 B/P (MAP) 148/78 (101) Pulse Ox 94 94 94 O2 Delivery BiPAP/CPAP Room Air Nasal Cannula BiPAP/CPAP O2 Flow Rate 8.0 09/27/21 09/28/21 09/28/21 09/28/21 22:58 00:23 02:00 03:25 Temp 97.7 97.7 97.7 97.7 Pulse 113 112 Resp 18 18 B/P (MAP) 127/67 (87) 107/76 (86) Pulse Ox 95 94 94 94 O2 Delivery BiPAP/CPAP BiPAP/CPAP BiPAP/CPAP BiPAP/CPAP 09/28/21 09/28/21 09/28/21 09/28/21 04:00 07:00 07:04 08:00 Temp 97.6 97.6 Pulse 125 Resp 22 B/P (MAP) 124/71 (88) Pulse Ox 95 93 95 O2 Delivery BiPAP/CPAP Nasal Cannula BiPAP/CPAP Room Air O2 Flow Rate 8.0 8.0 09/28/21 09/28/21 09/28/21 09/28/21 09:05 09:27 09:27 11:00 Temp 96.6 96.6 Pulse 120 112 96 Resp 23 B/P (MAP) 124/71 107/76 115/64 (81) Pulse Ox 94 99 O2 Delivery BiPAP/CPAP BiPAP/CPAP 09/28/21 09/28/21 09/28/21 09/28/21 11:00 13:25 13:55 15:00 Temp 97.4 97.4 Pulse 81 97 Resp 19 B/P (MAP) 111/70 123/73 (90) Pulse Ox 98 96 97 O2 Delivery BiPAP/CPAP BiPAP/CPAP BiPAP/CPAP 09/28/21 15:18 Pulse Ox 95 O2 Delivery BiPAP/CPAP Intake and Output 09/27/21 09/27/21 09/28/21 15:00 23:00 07:00 Intake Total 350 ml 60 ml Output Total 2000 ml 2075 ml 800 ml Balance -1650 ml -2015 ml -800 ml Justifications for Admission Other Justification Acute hypoxemic respiratory failure DARBY TUTTLE MD Sep 28, 2021 17:02
[2021-09-28 19:00] VITALS: BP 122/71
[2021-09-28 23:00] VITALS: BP 131/83
[2021-09-29 03:00] VITALS: BP 120/74
[2021-09-29] MEDS: cefTRIAXone IV Push 1 GM VIAL. IVP SCH (05:45)
[2021-09-29 07:00] VITALS: BP 129/76
[2021-09-29] MEDS: IPRATROPIUM BROMIDE 0.5 MG/2.5 ML NEBU. NEB SCH ×4 (07:50→20:42)
[2021-09-29] MEDS: BUDESONIDE 0.5 MG/2 ML NEBU. NEB SCH ×2 (07:50→20:42)
--- NOTE | 2021-09-29 09:00 | PDOC ---
PULMONARY PROGRESS NOTES DATE: 09/29/21 TIME: 09:00 Subjective on BiPAP overnight during day on 02 feels better has home bipap No increasing cough Vitals Vital Signs Date Time Temp Pulse Resp B/P (MAP) Pulse Ox O2 Delivery O2 Flow Rate FiO2 09/29/21 07:53 99 BiPAP/CPAP 09/29/21 03:00 98.1 100 28 120/74 (89) 98.1 09/28/21 08:00 8.0 ROS: No Chest Pain, No Abdominal Pain, No Increase Cough General: Alert, No acute distress Lungs: Other (b lat diminished ) Cardiovascular: Other (irreg irreg) Abdomen: Soft, Non-tender Neuro Exam: Alert Extremities: No Edema Skin: Warm Labs Laboratory Tests Test 09/27/21 11:43 09/27/21 16:28 09/27/21 20:26 09/28/21 03:40 Glucose (Fingerstick) 125 mg/dL (70-99) 169 mg/dL (70-99) 126 mg/dL (70-99) White Blood Count 11.0 x10^3/uL (4.0-11.0) Red Blood Count 5.01 x10^6/uL (4.30-5.70) Hemoglobin 16.1 g/dL (13.0-17.5) Hematocrit 49.0 % (39.0-53.0) Mean Corpuscular Volume 98 fL (79-100) Mean Corpuscular Hemoglobin 32 pg (25-35) Mean Corpuscular Hemoglobin Concent 33 g/dL (31-37) Red Cell Distribution Width 15.5 % (11.5-14.5) Platelet Count 206 x10^3/uL (140-400) Neutrophils (%) (Auto) 67 % (31-73) Lymphocytes (%) (Auto) 22 % (24-48) Monocytes (%) (Auto) 11 % (0-9) Eosinophils (%) (Auto) 1 % (0-3) Basophils (%) (Auto) 0 % (0-3) Neutrophils # (Auto) 7.3 x10^3/uL (1.8-7.7) Lymphocytes # (Auto) 2.4 x10^3/uL (1.0-4.8) Monocytes # (Auto) 1.2 x10^3/uL (0.0-1.1) Eosinophils # (Auto) 0.1 x10^3/uL (0.0-0.7) Basophils # (Auto) 0.0 x10^3/uL (0.0-0.2) Sodium Level 137 mmol/L (136-145) Potassium Level 4.6 mmol/L (3.5-5.1) Chloride Level 96 mmol/L (98-107) Carbon Dioxide Level 42 mmol/L (21-32) Anion Gap (6-14) Blood Urea Nitrogen 26 mg/dL (8-26) Creatinine 0.8 mg/dL (0.7-1.3) Estimated GFR (Cockcroft-Gault) 100.4 Glucose Level 91 mg/dL (70-99) Calcium Level 8.9 mg/dL (8.5-10.1) Test 09/28/21 07:53 09/28/21 12:11 09/28/21 16:54 09/28/21 19:56 Glucose (Fingerstick) 62 mg/dL (70-99) 99 mg/dL (70-99) 136 mg/dL (70-99) 182 mg/dL (70-99) Test 09/29/21 08:17 Glucose (Fingerstick) 67 mg/dL (70-99) Laboratory Tests Test 09/28/21 12:11 09/28/21 16:54 09/28/21 19:56 09/29/21 08:17 Glucose (Fingerstick) 99 mg/dL (70-99) 136 mg/dL (70-99) 182 mg/dL (70-99) 67 mg/dL (70-99) Medications Active Scripts Medications Dose Route/Sig Max Daily Dose Days Date Category Advair 500-50 Diskus (Fluticasone/Salmeterol) 1 Each Disk.w.dev 1 Puff INH BID 09/24/21 Reported Albuterol Sulfate Neb Soln (Albuterol Sulfate) 2.5 Mg/3 Ml Vial.neb 2.5 Mg NEB PRN Q4-6HRS PRN 06/12/21 Reported Glyxambi 25 mg-5 mg Tablet (Empagliflozin/Linagliptin) 1 Each Tablet 1 Each PO DAILY 01/03/21 Reported [Albuterol Sulfate] 2.5 MG/3 ML Nebu 2.5 Mg NEB PRN Q2HR PRN 09/26/14 Rx Aspirin 325 Mg Tablet 325 Mg PO DAILY 11/26/13 Reported Metformin Hcl Er (Metformin Hcl) 500 Mg Tab.er.24 500 Mg PO BID 11/26/13 Reported Lisinopril 5 Mg Tablet 10 Mg PO DAILY 11/26/13 Reported Glimepiride 4 Mg Tablet 4 Mg PO BID 11/26/13 Reported Torsemide 20 Mg Tablet 20 Mg PO BID 11/26/13 Reported Spiriva (Tiotropium [place]) 18 Mcg Cap.w.dev 18 Mcg IH DAILY 11/26/13 Reported Impression . IMPRESSION: 1. Acute on chronic hypoxemic hypercapnic respiratory failure. 2. Acute exacerbation of chronic obstructive pulmonary disease. 3. Acute on chronic cor pulmonale. 4. Obesity. 5. Abnormal CT revealing air trapping and bilateral infiltrates compatible with either acute exacerbation of chronic obstructive pulmonary disease or mild vascular congestion, no consolidation, doubt COVID-19. 6. new onset afib Plan . 09/28 02 titration atrovent only avoid alb had afib w rvr still in afib rate controlled AC per cardiology pred 40 mg daily w taper bipap prn during day cont at night lose wt follow cardiology rec discussed w pt/rn 09/27 02 titration change duo neb to atrovent only avoid alb afib w rvr change solumedrol to pred 40 mg daily w taper bipap prn durng day cont at [facility] lose wt follow cardiology rec discussed w pt Updated 09/[address] Nelson Follow cardiology input PT eval Not ready for discharge today, still short of air, new onset A. fib. Updated 09/25 Continue BiPAP SARS-CoV-2 testing negative Empiric antibiotics KADE Coyle MD Sep 29, 2021 09:00
--- NOTE | 2021-09-29 09:01 | PDOC ---
PULMONARY PROGRESS NOTES DATE: 09/29/21 TIME: 09:00 Subjective Patient not short of breath, currently on BiPAP A. fib with a response of 110 Vitals Vital Signs Date Time Temp Pulse Resp B/P (MAP) Pulse Ox O2 Delivery O2 Flow Rate FiO2 09/29/21 07:53 99 BiPAP/CPAP 09/29/21 03:00 98.1 100 28 120/74 (89) 98.1 09/28/21 08:00 8.0 ROS: No Chest Pain, No Abdominal Pain, No Increase Cough General: Alert, No acute distress Lungs: Other (b lat diminished ) Cardiovascular: Other (irreg irreg) Abdomen: Soft, Non-tender Neuro Exam: Alert Extremities: No Edema Skin: Warm Labs Laboratory Tests Test 09/27/21 11:43 09/27/21 16:28 09/27/21 20:26 09/28/21 03:40 Glucose (Fingerstick) 125 mg/dL (70-99) 169 mg/dL (70-99) 126 mg/dL (70-99) White Blood Count 11.0 x10^3/uL (4.0-11.0) Red Blood Count 5.01 x10^6/uL (4.30-5.70) Hemoglobin 16.1 g/dL (13.0-17.5) Hematocrit 49.0 % (39.0-53.0) Mean Corpuscular Volume 98 fL (79-100) Mean Corpuscular Hemoglobin 32 pg (25-35) Mean Corpuscular Hemoglobin Concent 33 g/dL (31-37) Red Cell Distribution Width 15.5 % (11.5-14.5) Platelet Count 206 x10^3/uL (140-400) Neutrophils (%) (Auto) 67 % (31-73) Lymphocytes (%) (Auto) 22 % (24-48) Monocytes (%) (Auto) 11 % (0-9) Eosinophils (%) (Auto) 1 % (0-3) Basophils (%) (Auto) 0 % (0-3) Neutrophils # (Auto) 7.3 x10^3/uL (1.8-7.7) Lymphocytes # (Auto) 2.4 x10^3/uL (1.0-4.8) Monocytes # (Auto) 1.2 x10^3/uL (0.0-1.1) Eosinophils # (Auto) 0.1 x10^3/uL (0.0-0.7) Basophils # (Auto) 0.0 x10^3/uL (0.0-0.2) Sodium Level 137 mmol/L (136-145) Potassium Level 4.6 mmol/L (3.5-5.1) Chloride Level 96 mmol/L (98-107) Carbon Dioxide Level 42 mmol/L (21-32) Anion Gap (6-14) Blood Urea Nitrogen 26 mg/dL (8-26) Creatinine 0.8 mg/dL (0.7-1.3) Estimated GFR (Cockcroft-Gault) 100.4 Glucose Level 91 mg/dL (70-99) Calcium Level 8.9 mg/dL (8.5-10.1) Test 09/28/21 07:53 09/28/21 12:11 09/28/21 16:54 09/28/21 19:56 Glucose (Fingerstick) 62 mg/dL (70-99) 99 mg/dL (70-99) 136 mg/dL (70-99) 182 mg/dL (70-99) Test 09/29/21 08:17 Glucose (Fingerstick) 67 mg/dL (70-99) Laboratory Tests Test 09/28/21 12:11 09/28/21 16:54 09/28/21 19:56 09/29/21 08:17 Glucose (Fingerstick) 99 mg/dL (70-99) 136 mg/dL (70-99) 182 mg/dL (70-99) 67 mg/dL (70-99) Medications Active Scripts Medications Dose Route/Sig Max Daily Dose Days Date Category Advair 500-50 Diskus (Fluticasone/Salmeterol) 1 Each Disk.w.dev 1 Puff INH BID 09/24/21 Reported Albuterol Sulfate Neb Soln (Albuterol Sulfate) 2.5 Mg/3 Ml Vial.neb 2.5 Mg NEB PRN Q4-6HRS PRN 06/12/21 Reported Glyxambi 25 mg-5 mg Tablet (Empagliflozin/Linagliptin) 1 Each Tablet 1 Each PO DAILY 01/03/21 Reported [Albuterol Sulfate] 2.5 MG/3 ML Nebu 2.5 Mg NEB PRN Q2HR PRN 09/26/14 Rx Aspirin 325 Mg Tablet 325 Mg PO DAILY 11/26/13 Reported Metformin Hcl Er (Metformin Hcl) 500 Mg Tab.er.24 500 Mg PO BID 11/26/13 Reported Lisinopril 5 Mg Tablet 10 Mg PO DAILY 11/26/13 Reported Glimepiride 4 Mg Tablet 4 Mg PO BID 11/26/13 Reported Torsemide 20 Mg Tablet 20 Mg PO BID 11/26/13 Reported Spiriva (Tiotropium [place]) 18 Mcg Cap.w.dev 18 Mcg IH DAILY 11/26/13 Reported Impression . IMPRESSION: 1. Acute on chronic hypoxemic hypercapnic respiratory failure. 2. Acute exacerbation of chronic obstructive pulmonary disease. 3. Acute on chronic cor pulmonale. 4. Obesity. 5. Abnormal CT revealing air trapping and bilateral infiltrates compatible with either acute exacerbation of chronic obstructive pulmonary disease or mild vascular congestion, no consolidation, doubt COVID-19. 6. new onset afib Plan . Updated 09/29 Per cardiology, discharge when okay with cardiology Continue BiPAP Oxygen supplementation Diurese 09/28 02 titration atrovent only avoid alb had afib w rvr still in afib rate controlled AC per cardiology pred 40 mg daily w taper bipap prn during day cont at night lose wt follow cardiology rec discussed w pt/rn KADE SANCHEZ MD Sep 29, 2021 09:01
[2021-09-29] MEDS: FUROSEMIDE 40 MG TABLET. PO SCH (09:18)
[2021-09-29] MEDS: APIXABAN 5 MG TABLET. PO SCH ×2 (09:18→22:04)
[2021-09-29] MEDS: LACTOBACILLUS RHAMNOSUS GG 1 CAPSULE. PO SCH ×2 (09:18→22:01)
[2021-09-29] MEDS: GLIMEPIRIDE 2 MG TABLET. PO SCH ×2 (09:18→22:04)
[2021-09-29] MEDS: ASPIRIN 325 MG TABLET PO SCH (09:18)
[2021-09-29] MEDS: DOCUSATE SODIUM 100 MG CAPSULE. PO SCH (09:19)
[2021-09-29] MEDS: predniSONE 20 MG TABLET PO SCH (09:19)
[2021-09-29] MEDS: POLYETHYLENE GLYCOL 3350 17 GM PACKET. PO SCH (09:19)
[2021-09-29 11:00] VITALS: BP 113/69
[2021-09-29] MEDS: dilTIAZem HCL 30 MG TABLET PO SCH ×3 (13:20→22:04)
--- NOTE | 2021-09-29 13:47 | PDOC ---
[facility] PROGRESS NOTE Date of Service DOS: DATE: 09/29/21 TIME: 13:41 Chief Complaint Chief Complaint acute diastolic CHF, atrial fibrillation with RVR, new Acute on chronic, combined hypoxemic and hypercarbic respiratory respiratory failure. Acute exacerbation COPD CHF, chronic diastolic, BMI 35 History of Present Illness History of Present Illness start cardizem po and give IV metopolol x1, cont current othere strenght better, breathing easier, 09/27, feeling better, sitting up and eating, On nasal cannula, off BIPAP for now, still very weak continue the steroids, nebs, abx, BiPAP sleeping hard today, still weak better this AM 09/29/2021 Patient seen and examined bedside. Tolerating BiPAP well. Saturating well. Continue with IV steroids. Transition to p.o. diltiazem. Pending further cardiology evaluation before discharge. Patient's chart, labs, images were revi ewed and discussed with RN Vitals/I&O Vitals/I&O: Vital Signs Date Time Temp Pulse Resp B/P (MAP) Pulse Ox O2 Delivery O2 Flow Rate FiO2 09/29/21 13:23 103 113/69 09/29/21 11:31 100 BiPAP/CPAP 09/29/21 11:00 97.8 20 50.0 97.8 I & O 09/28/21 09/28/21 09/29/21 15:00 23:00 07:00 Intake Total 520 ml 900 ml 300 ml Output Total 500 ml 1360 ml Balance 20 ml 900 ml -1060 ml Physical Exam General: No acute distress Heart: Other (Irregularly irregular) Lungs: Other (b lat diminished ) Abdomen: Normal bowel sounds Extremities: No cyanosis, Other (1+ bilateral LE edema ) Skin: No rashes, No breakdown, No significant lesion Labs Labs: Laboratory Tests Test 09/28/21 16:54 09/28/21 19:56 09/29/21 08:17 09/29/21 12:21 Glucose (Fingerstick) 136 mg/dL (70-99) 182 mg/dL (70-99) 67 mg/dL (70-99) 150 mg/dL (70-99) Assessment and Plan Assessmemt and Plan Problems Medical Problems: (1) Hypercapnic respiratory failure Status: Acute (2) Person under investigation for COVID-19 Status: Acute Comment Review of Relevant I have reviewed the following items wade (where applicable) has been applied. Justifications for Admission Other Justification Acute hypoxemic respiratory failure LEEROY LUIS MD Sep 29, 2021 13:47
--- NOTE | 2021-09-29 13:52 | NUR ---
SS following up with discharge planning. SS reviewed pt chart and discussed with pt RN. Pt is currently on BIPAP at 50%. COVID19 negative. Pt on IV Rocephin. Pt has home BIPAP and home oxygen. Cardiology and Pulmonology following. Cardiology holding at this time for AFIB/A-Flutter. SS will continue to follow for discharge planning.
[2021-09-29 15:00] VITALS: BP 110/69
--- NOTE | 2021-09-29 17:02 | PDOC ---
RAJAT CASTELLANO LANDSCAPE MANAGEMENT TECHNICIAN 09/29/21 1702: CARDIO Progress Notes Date and Time Date of Service 09/29/21 Time of Evaluation 1245 Subjective Subjective: No Chest Pain, No Palpitations, Other (breathing improved) Vitals Vitals Vital Signs Date Time Temp Pulse Resp B/P (MAP) Pulse Ox O2 Delivery O2 Flow Rate FiO2 09/29/21 16:12 100 BiPAP/CPAP 09/29/21 13:23 103 113/69 09/29/21 11:00 97.8 20 50.0 97.8 Weight Weight [ ] Input and Output Intake and Output Intake and Output 09/29/21 07:00 Intake Total 1720 ml Output Total 1860 ml Balance -140 ml Intake Oral 1720 ml Output Urine Total 1860 ml Laboratory Labs Laboratory Tests Test 09/28/21 19:56 09/29/21 08:17 09/29/21 12:21 Glucose (Fingerstick) 182 mg/dL (70-99) 67 mg/dL (70-99) 150 mg/dL (70-99) Physical Exam HEENT: Neck Supple W Full Motion Chest: Symmetric LUNGS: Other (diminished) Heart: irregularly irregular (A-flutter ) Abdomen: Soft N/T Extremities: No Calf Tenderness, Other (1+ bilateral LE edema ) Neurology: alert, oriented, follow commands Assessment Assessment 1. Acute on chronic respiratory failure, AE COPD, mild CHF. requiring BiPAP support 2. Mild acute on chronic diastolic CHF; recent echo with preserved LV systolic function. better s/p IV diuresis 3. Chest pain, mixed features. AMI ruled out 4. AFIB/flutter with RVR; new onset. Rate controlled overall with addition of Cardizem 5. Hypertension; controlled 6. Hyperlipidemia; LDL 7. Diabetes, II 8. BALTA 9. H/o tobaccosim; in remission Recommendations Convert Cardizem to long-acting Continue Eliquis for stroke prophylaxis TSH level BiPAP support Ongoing lung optimization Outpatient ischemic evaluation Outpatient CV if patient remains in AFIB Supportive care Justicifation of Admission Dx: Justifications for Admission: Justification of Admission Dx: Yes Respiratory Failure: Severe Resp Distress DARBY TUTTLE MD 09/29/21 1714: CARDIO Progress Notes Assessment Assessment Patient seen and examined I agree with our nurse practitioners assessment and plan. Acute on chronic respiratory failure, AE COPD, mild CHF. requiring BiPAP support Mild acute on chronic diastolic CHF; recent echo with preserved LV systolic function. improving s/p IV diuresis Chest pain, mixed features. AMI ruled out AFIB/flutter with RVR; new onset. Rate controlled overall with addition of Cardizem Hypertension; controlled Hyperlipidemia; LDL Diabetes, II BALTA RAJAT CASTELLANO APRN Sep 29, 2021 17:02 DARBY TUTTLE MD Sep 29, 2021 17:14
[2021-09-29 19:35] VITALS: BP 99/77
[2021-09-29 23:15] VITALS: BP 103/76
[2021-09-30 03:25] VITALS: BP 106/73
[2021-09-30] MEDS: cefTRIAXone IV Push 1 GM VIAL. IVP SCH (05:21)
[2021-09-30 07:00] VITALS: BP 120/78
[2021-09-30] MEDS ORDERED: GLIMEPIRIDE 2 MG TABLET. PO SCH (08:00)
[2021-09-30] MEDS: IPRATROPIUM BROMIDE 0.5 MG/2.5 ML NEBU. NEB SCH ×2 (08:28→12:52)
[2021-09-30] MEDS: BUDESONIDE 0.5 MG/2 ML NEBU. NEB SCH (08:28)
[2021-09-30] MEDS: predniSONE 20 MG TABLET PO SCH (08:59)
[2021-09-30] MEDS: LACTOBACILLUS RHAMNOSUS GG 1 CAPSULE. PO SCH (08:59)
[2021-09-30] MEDS: DOCUSATE SODIUM 100 MG CAPSULE. PO SCH (08:59)
[2021-09-30] MEDS: ASPIRIN 325 MG TABLET PO SCH (08:59)
[2021-09-30] MEDS: FUROSEMIDE 40 MG TABLET. PO SCH (08:59)
[2021-09-30] MEDS: POLYETHYLENE GLYCOL 3350 17 GM PACKET. PO SCH (09:00)
--- NOTE | 2021-09-30 09:20 | PDOC ---
PULMONARY PROGRESS NOTES DATE: 09/30/21 TIME: 09:20 Subjective Patient not short of breath, currently on BiPAP A. fib with a response of 110 Vitals Vital Signs Date Time Temp Pulse Resp B/P (MAP) Pulse Ox O2 Delivery O2 Flow Rate FiO2 09/30/21 08:58 84 106/73 09/30/21 08:33 99 BiPAP/CPAP 09/30/21 08:31 8.0 09/30/21 07:00 96.7 18 96.7 ROS: No Chest Pain, No Abdominal Pain, No Increase Cough General: Alert, No acute distress Lungs: Other (b lat diminished ) Cardiovascular: Other (irreg irreg) Abdomen: Soft, Non-tender Neuro Exam: Alert Extremities: No Edema Skin: Warm Labs Laboratory Tests Test 09/28/21 12:11 09/28/21 16:54 09/28/21 19:56 09/29/21 08:17 Glucose (Fingerstick) 99 mg/dL (70-99) 136 mg/dL (70-99) 182 mg/dL (70-99) 67 mg/dL (70-99) Test 09/29/21 12:21 09/29/21 17:08 09/29/21 21:06 09/30/21 08:36 Glucose (Fingerstick) 150 mg/dL (70-99) 161 mg/dL (70-99) 177 mg/dL (70-99) 111 mg/dL (70-99) Laboratory Tests Test 09/29/21 12:21 09/29/21 17:08 09/29/21 21:06 09/30/21 08:36 Glucose (Fingerstick) 150 mg/dL (70-99) 161 mg/dL (70-99) 177 mg/dL (70-99) 111 mg/dL (70-99) Medications Active Scripts Medications Dose Route/Sig Max Daily Dose Days Date Category Advair 500-50 Diskus (Fluticasone/Salmeterol) 1 Each Disk.w.dev 1 Puff INH BID 09/24/21 Reported Albuterol Sulfate Neb Soln (Albuterol Sulfate) 2.5 Mg/3 Ml Vial.neb 2.5 Mg NEB PRN Q4-6HRS PRN 06/12/21 Reported Glyxambi 25 mg-5 mg Tablet (Empagliflozin/Linagliptin) 1 Each Tablet 1 Each PO DAILY 01/03/21 Reported [Albuterol Sulfate] 2.5 MG/3 ML Nebu 2.5 Mg NEB PRN Q2HR PRN 09/26/14 Rx Aspirin 325 Mg Tablet 325 Mg PO DAILY 11/26/13 Reported Metformin Hcl Er (Metformin Hcl) 500 Mg Tab.er.24 500 Mg PO BID 11/26/13 Reported Lisinopril 5 Mg Tablet 10 Mg PO DAILY 11/26/13 Reported Glimepiride 4 Mg Tablet 4 Mg PO BID 11/26/13 Reported Torsemide 20 Mg Tablet 20 Mg PO BID 11/26/13 Reported Spiriva (Tiotropium [place]) 18 Mcg Cap.w.dev 18 Mcg IH DAILY 11/26/13 Reported Impression . IMPRESSION: 1. Acute on chronic hypoxemic hypercapnic respiratory failure. 2. Acute exacerbation of chronic obstructive pulmonary disease. 3. Acute on chronic cor pulmonale. 4. Obesity. 5. Abnormal CT revealing air trapping and bilateral infiltrates compatible with either acute exacerbation of chronic obstructive pulmonary disease or mild vascular congestion, no consolidation, doubt COVID-19. 6. new onset afib Plan . Updated 09/29 Per cardiology, discharge when okay with cardiology Continue BiPAP Oxygen supplementation Diurese 09/28 02 titration atrovent only avoid alb had afib w rvr still in afib rate controlled AC per cardiology pred 40 mg daily w taper bipap prn during day cont at night lose wt follow cardiology rec discussed w pt/rn KADE SANCHEZ MD Sep 30, 2021 09:20
[2021-09-30] MEDS: APIXABAN 5 MG TABLET. PO SCH (10:06)
--- NOTE | 2021-09-30 10:59 | NUR ---
SS following up with discharge planning. SS reviewed pt chart and discussed with pt RN. Pt is currently on BIPAP at 50%. COVID19 negative. Pt has home oxygen and home BIPAP. Pt on IV Rocephin. Discharge plan is currently to home when medically ready for discharge. SS will continue to follow for discharge planning.
[2021-09-30 11:00] VITALS: BP 115/63
--- NOTE | 2021-09-30 12:02 | PDOC ---
CARDIO Progress Notes Date and Time Date of Service 09/30/2021 Time of Evaluation 1140 Subjective Subjective: No Chest Pain, No Palpitations, Other (SOA better) Vitals Vitals Vital Signs Date Time Temp Pulse Resp B/P (MAP) Pulse Ox O2 Delivery O2 Flow Rate FiO2 09/30/21 08:58 84 106/73 09/30/21 08:33 99 BiPAP/CPAP 09/30/21 08:31 8.0 09/30/21 07:00 96.7 18 96.7 Weight Weight [ ] Input and Output Intake and Output Intake and Output 09/30/21 07:00 Intake Total 1600 ml Output Total 2825 ml Balance -1225 ml Intake Oral 1600 ml Output Urine Total 2825 ml Laboratory Labs Laboratory Tests Test 09/29/21 12:21 09/29/21 17:08 09/29/21 21:06 09/30/21 08:36 Glucose (Fingerstick) 150 mg/dL (70-99) 161 mg/dL (70-99) 177 mg/dL (70-99) 111 mg/dL (70-99) Physical Exam HEENT: Neck Supple W Full Motion Chest: Symmetric LUNGS: Other (diminished) Heart: irregularly irregular (A-flutter ) Abdomen: Soft N/T Extremities: No Calf Tenderness, Other (1+ bilateral LE edema ) Neurology: alert, oriented, follow commands Assessment Assessment 1. Acute on chronic respiratory failure, AE COPD, mild CHF. requiring BiPAP support 2. Mild acute on chronic diastolic CHF; recent echo with preserved LV systolic function. better s/p IV diuresis 3. Chest pain, mixed features. AMI ruled out 4. AFIB/flutter with RVR; new onset. Rate controlled 5. Hypertension; controlled 6. Hyperlipidemia; LDL 7. Diabetes, II 8. BALTA 9. H/o tobaccosim; in remission Recommendations Continue Cardizem for rate control Continue Eliquis for stroke prophylaxis BiPAP at hs Ongoing lung optimization Outpatient ischemic evaluation Outpatient CVN Supportive care. follow up 10/30 1:45 PM Justicifation of Admission Dx: Justifications for Admission: Justification of Admission Dx: Yes Respiratory Failure: Severe Resp Distress ULISES HOUGH APRN Sep 30, 2021 12:02
[2021-09-30] MEDS ORDERED: PRED20TA PO (12:08)
[2021-09-30] MEDS ORDERED: APIX5TAB PO (12:08)
[2021-09-30] MEDS ORDERED: DILT240C33 PO (12:08)
--- NOTE | 2021-09-30 12:18 | DISCH ---
DISCHARGE INSTRUCTIONS Condition on Discharge Condition on Discharge: Stable Activity After Discharge Activity Instructions for Disc: No restrictions, Activity as tolerated Driving Instructions after Dis: Do not drive today Weight Bearing Status after Di: As tolerated Diet after Discharge Diet after Discharge: Cardiac, Diabetic No Calorie Level Liquid Texture: Thin Liquid Wound Incision Care Wound/Incision Care: No wound care needed Checks after Discharge Checks after discharge: Check blood press - daily, Check blood sugar, ac/hs Contacting the DR. after DC Call your doctor for: If your condition worsens Follow-Up Follow up with: PCP within 2 weeks of discharge Follow Up With: Cardiology as needed Treatment/Equipment after DC Adaptive Equipment Issued: None Discharge Respiratory Equipmen: Oxygen, CPAP LEEROY LUIS MD Sep 30, 2021 12:18
[2021-09-30] MEDS ORDERED: AMOX1TAB58 PO (13:48)
[2021-09-30 15:00] VITALS: BP 115/69
--- NOTE | 2021-09-30 16:10 | NUR ---
DISCHARGED PATIENT TO HOME. DISCHARGE INSTRUCTIONS GIVEN. PIV AND HEART MONITOR REMOVED. ESCORTED PATIETN OFF UNIT PER WHEELCHAIR INTO A PRIVATE VEHICLE.
--- NOTE | 2021-10-01 17:51 | PDOC3 ---
[facility]-Discharge Summary Date of Admission: Date of Admission: Sep 24, 2021 Date of Discharge: Date of Discharge: Sep 30, 2021 Discharge Diagnosis: Discharge Diagnosis: 1. Acute on chronic respiratory failure, AE COPD, mild CHF. requiring BiPAP support 2. Mild acute on chronic diastolic CHF; recent echo with preserved LV systolic function. better s/p IV diuresis 3. Chest pain, mixed features. AMI ruled out 4. AFIB/flutter with RVR; new onset. Rate controlled 5. Hypertension; controlled 6. Hyperlipidemia; LDL 7. Diabetes, II 8. BATLA 9. H/o tobaccosim; in remission Consults: Consults: cardiology Recommendations Continue Cardizem for rate control Continue Eliquis for stroke prophylaxis BiPAP at hs Ongoing lung optimization Outpatient ischemic evaluation Outpatient CVN Supportive care. follow up 10/30 1:45 PM Hospital Course: Hospital Course: 56-year-old male who has COPD. He is on 6 liters of oxygen. He also has CHF and multiple comorbidities, basically presented with chest pain and very short of breath. This has been occurring for several days. He complains of substernal, constant, nonradiating pain, worse with movement, better with sitting still. He has also had some increased swelling of his lower extremities. He has been vaccinated for COVID-19. While in the ER, he was noted to have hypercapnic respiratory failure. 09/27, feeling better, sitting up and eating, On nasal cannula, off BIPAP for now, still very weak continue the steroids, nebs, abx, BiPAP sleeping hard today, still weak better this AM 09/29/2021 Patient seen and examined bedside. Tolerating BiPAP well. Saturating well. Continue with IV steroids. Transition to p.o. diltiazem. Pending further cardiology evaluation before discharge. Patient's chart, labs, images were reviewed and discussed with RN Disposition: Disposition/Orders: D/C to Home Activity: Activity: Resume previous activity Diet: Diet: Cardiac Medications: Home Meds Active Scripts Amoxicillin/Potassium Clav (AUGMENTIN 500-125 TABLET) 1 Each Tablet, 1 TAB PO BID for pneumonia for 3 Days, #6 TAB 0 Refills Prov:LEEROY LUIS MD 09/30/21 Prednisone (PREDNISONE) 20 Mg Tablet, 1 TAB PO DAILY for copd exacerbation for 5 Days, #5 TAB Prov:LEEROY LUIS MD 09/30/21 Apixaban (ELIQUIS) 5 Mg Tablet, 5 MG PO BID for stroke prevention for 30 Days, #60 TAB 2 Refills Prov:LEEROY LUIS MD 09/30/21 Diltiazem HCl (Diltiazem 24Hr Cd) 240 Mg Cap.er.24h, 240 MG PO DAILY for heart rate for 30 Days, #30 CAP.SR 2 Refills Prov:LEEROY LUIS MD 09/30/21 [Albuterol Sulfate] 2.5 MG/3 ML NEBU No Conflict Check, 2.5 MG NEB PRN Q2HR PRN for DYSPNEA, #120 3 Refills Prov:Génesis CESAR MD 09/26/14 Reported Medications Fluticasone/Salmeterol (ADVAIR 500-50 DISKUS) 1 Each Disk.w.dev, 1 PUFF INH BID for 09/24/21 Albuterol Sulfate (ALBUTEROL SULFATE NEB SOLN) 2.5 Mg/3 Ml Vial.neb, 2.5 MG NEB PRN Q4-6HRS PRN for SHORTNESS OF BREATH, EACH 0 Refills 06/12/21 Empagliflozin/Linagliptin (Glyxambi 25 mg-5 mg Tablet) 1 Each Tablet, 1 EACH PO DAILY for dm, TAB 01/03/21 Metformin Hcl (METFORMIN HCL ER) 500 Mg Tab.er.24, 500 MG PO BID 11/26/13 Lisinopril (LISINOPRIL) 5 Mg Tablet, 10 MG PO DAILY for htn 11/26/13 Glimepiride (GLIMEPIRIDE) 4 Mg Tablet, 4 MG PO BID 11/26/13 Torsemide (TORSEMIDE) 20 Mg Tablet, 20 MG PO BID 11/26/13 Tiotropium Milton (SPIRIVA) 18 Mcg Cap.w.dev, 18 MCG IH DAILY 11/26/13 Discontinued Reported Medications Aspirin (ASPIRIN) 325 Mg Tablet, 325 MG PO DAILY 11/26/13 Potassium Chloride (POTASSIUM CHLORIDE ) 10 Meq Capsule.er, 10 MEQ PO BID 11/26/13 Scheduled Amoxicillin/Potassium Clav (Augmentin 500-125 Tablet), 1 TAB PO BID Apixaban (Eliquis), 5 MG PO BID Diltiazem HCl (Diltiazem 24Hr Cd), 240 MG PO DAILY Empagliflozin/Linagliptin (Glyxambi 25 mg-5 mg Tablet), 1 EACH PO DAILY, (Reported) Fluticasone/Salmeterol (Advair 500-50 Diskus), 1 PUFF INH BID, (Reported) Glimepiride (Glimepiride), 4 MG PO BID, (Reported) Lisinopril (Lisinopril), 10 MG PO DAILY, (Reported) Metformin Hcl (Metformin Hcl Er), 500 MG PO BID, (Reported) Prednisone (Prednisone), 1 TAB PO DAILY Tiotropium Milton (Spiriva), 18 MCG IH DAILY, (Reported) Torsemide (Torsemide), 20 MG PO BID, (Reported) Scheduled PRN Albuterol Sulfate (Albuterol Sulfate Neb Soln), 2.5 MG NEB PRN Q4-6HRS PRN for SHORTNESS OF BREATH, (Reported) [Albuterol Sulfate], 2.5 MG NEB PRN Q2HR PRN for DYSPNEA Discontinued Medications Aspirin (Aspirin), 325 MG PO DAILY, (Reported) Potassium Chloride (Potassium Chloride ), 10 MEQ PO BID, (Reported) Total Time: Total Time: Total time spent was 33 minutes in preparing scripts, discharge planning with SW and RN, and preparing this discharge summary. Patient seen and examined on day of discharge. Justicifation of Admission Dx: Justifications for Admission: Justification of Admission Dx: Yes Respiratory Failure: Severe Resp Distress LEEROY LUIS MD Oct 01, 2021 17:51
== END 2021-09-30 16:02 | disposition home or self-care (01) | DRG 291 ==
LOC: ER 22:52 → 6 SOUTH 09-24 00:57
PROVIDERS: ADMIT Internal Medicine; ATTEND Internal Medicine
PROC: 5A09457 Assistance with Respiratory Ventilation, 24-96 Consecutive Hours, Continuous Positive Airway Pressure (ICD-10-PCS; 2021-09-23)
PROC: 5A09357 Assistance with Respiratory Ventilation, Less than 24 Consecutive Hours, Continuous Positive Airway Pressure (ICD-10-PCS; principal; 2021-09-27)
PROC: 5A09357 Assistance with Respiratory Ventilation, Less than 24 Consecutive Hours, Continuous Positive Airway Pressure (ICD-10-PCS; 2021-09-28)
PROC: 5A09357 Assistance with Respiratory Ventilation, Less than 24 Consecutive Hours, Continuous Positive Airway Pressure (ICD-10-PCS; 2021-09-29)
PROC: 5A09357 Assistance with Respiratory Ventilation, Less than 24 Consecutive Hours, Continuous Positive Airway Pressure (ICD-10-PCS; 2021-09-30)
DX: I11.0 Hypertensive heart disease with heart failure (principal); I50.43 Acute on chronic combined systolic (congestive) and diastolic (congestive) heart failure; J96.21 Acute and chronic respiratory failure with hypoxia; J96.22 Acute and chronic respiratory failure with hypercapnia; J18.9 Pneumonia, unspecified organism; I48.92 Unspecified atrial flutter; J44.1 Chronic obstructive pulmonary disease with (acute) exacerbation; J44.0 Chronic obstructive pulmonary disease with (acute) lower respiratory infection; E11.9 Type 2 diabetes mellitus without complications; E66.9 Obesity, unspecified; E78.5 Hyperlipidemia, unspecified; E87.5 Hyperkalemia; G47.33 Obstructive sleep apnea (adult) (pediatric); K21.9 Gastro-esophageal reflux disease without esophagitis; R79.89 Other specified abnormal findings of blood chemistry; I25.10 Atherosclerotic heart disease of native coronary artery without angina pectoris; I27.81 Cor pulmonale (chronic); I48.91 Unspecified atrial fibrillation; Z20.822 Contact with and (suspected) exposure to COVID-19; Z82.49 Family history of ischemic heart disease and other diseases of the circulatory system; Z68.35 Body mass index [BMI] 35.0-35.9, adult; Z83.3 Family history of diabetes mellitus; Z87.891 Personal history of nicotine dependence; Z99.81 Dependence on supplemental oxygen; Z90.49 Acquired absence of other specified parts of digestive tract
CPT/HCPCS: 36415; 36600; 71045; 71275; 80048; 80053; 80061; 82805; 82962; 83690; 83735; 83880; 84443; 84484; 85025; 87426; 93005; 94640; 94660; 94760; 96374; J0456; J0696; J1100; J1160; J1940; J2920; J3490; J7512; Q9967; U0003; U0005; 99291-25; G0378; J7626; J7644

== ENCOUNTER 2021-12-03 11:45 | Inpatient (IN) | payer MEDICARE ==
[~2021-12-03] VITALS: Ht 190.5 cm; Wt 115.8 kg
[~2021-12-03 11:45] MED LIST changes: +AMOX1TAB58 PO; +APIX5TAB PO; +DILT240C33 PO; +FLUT1DIS5 INH
[2021-12-03] MEDS ORDERED: IPRATRPIUM/ALBUTEROL 0.5/2.5MG 3 ML NEBU. NEB ONE (12:00)
[2021-12-03 12:15] LABS: BASO # 0.1 x10^3/uL (0.0-0.2); BASO % 1 % (0-3); EOS % 0 % (0-3); HEMOGLOBIN 15.6 g/dL (13.0-17.5); LYMPH # 0.5 x10^3/uL (1.0-4.8); LYMPH % 6 % (24-48); MEAN CORPUSCULAR HEMOGLOBIN 32 pg (25-35); MEAN CORPUSCULAR HGB CONC 33 g/dL (31-37); MEAN CORPUSCULAR VOLUME 96 fL (79-100); MONO % 14 % (0-9); NEUT # 5.8 x10^3/uL (1.8-7.7); NEUT % 79 % (31-73); PLATELET COUNT 218 x10^3/uL (140-400); RED BLOOD COUNT 4.88 x10^6/uL (4.30-5.70); RED CELL DISTRIBUTION WIDTH 15.5 % (11.5-14.5); WHITE BLOOD COUNT 7.4 x10^3/uL (4.0-11.0)
[2021-12-03 12:31] LABS: BLOOD UREA NITROGEN 16 mg/dL (8-26); BUN/CREATININE RATIO 16 (6-20); CALCIUM 8.9 mg/dL (8.5-10.1); CARBON DIOXIDE 43 mmol/L (21-32); CHLORIDE 90 mmol/L (98-107); GFR 77.6; GLUCOSE 113 mg/dL (70-99); POTASSIUM 4.8 mmol/L (3.5-5.1); SODIUM 131 mmol/L (136-145)
[2021-12-03 12:36] LABS: ALBUMIN 3.4 g/dL (3.4-5.0); ALBUMIN/GLOBULIN RATIO 0.8 (1.0-1.7); ALK PHOS 78 U/L (46-116); ALT (SGPT) 11 U/L (16-63); AST (SGOT) 16 U/L (15-37); MAGNESIUM 2.3 mg/dL (1.8-2.4); TOTAL BILIRUBIN 1.7 mg/dL (0.2-1.0); TOTAL PROTEIN 7.9 g/dL (6.4-8.2)
[2021-12-03 12:42] LABS: BASE EXCESS ABG 7 mmol/L (-3-3); HCO3 ABG 35 mmol/L (21-28); PO2 ABG 62 mmHg (75-108); SAT O2 ABG 89 % (92-99)
[2021-12-03 12:45] LABS: FIO2 ABG 60; PCO2 ABG 68 mmHg (35-46)
[2021-12-03 12:49] LABS: % ATYL 1 % (0-0); % BANDS 3 % (0-9); % LYMPHS 8 % (24-48); % MONOS 10 % (0-10); % SEGS 78 % (35-66); PLT ESTIMATE ADEQUATE (ADEQUATE)
[2021-12-03 13:03] LABS: INFLUENZA A PATIENT NEGATIVE (NEGATIVE); INFLUENZA B PATIENT NEGATIVE (NEGATIVE)
--- NOTE | 2021-12-03 13:08 | RAD ---
Site ID: [id number] EXAMINATION: XR CHEST 1V. HISTORY: 56 years Male Reason: soa COMPARISON: September 23, 2021. Findings: Patchy infiltrates are seen in the catheter right lower lobe. There is minimal vascular con gestion. The heart size is enlarged. There is no effusion or pneumothorax. The mediastinum and lakesha appear unremarkable. Impression: Cardiomegaly with minimal vascular congestion. Patchy right basilar infiltrate. Electronically signed by: Rafael Lala MD (12/03/2021 1:06 PM) [id number]
[2021-12-03] MEDS ORDERED: IV NORMAL SALINE 500ML BAG 500 ML IV ONE ×3 (13:15→23:30)
[2021-12-03] MEDS ORDERED: cefTRIAXone IV Push 1 GM VIAL. IVP ONE (13:15)
[2021-12-03] MEDS ORDERED: DIGOXIN IV 500 MCG/2 ML AMPUL. IV ONE ×2 (13:15→19:15)
[2021-12-03] MEDS ORDERED: AZITHRMYCN 500MG IVPB FOR OMNI 250 ML IV ONE (13:15)
--- NOTE | 2021-12-03 13:15 | PHYS DOC ---
Past Medical History Past Medical History: CHF, COPD, Diabetes-Type II Additional Past Medical Histor: History of COPD on 6 L of home oxygen, history of CHF on torsemide Past Surgical History: Other Additional Past Surgical Histo: vasectomy Smoking Status: Current Some Day Smoker Alcohol Use: None Drug Use: None General Adult EDM: Chief Complaint: SHORTNESS OF BREATH HPI: HPI: Patient is a 56 year old male who was brought here by EMS from home due to respiratory distress. Patient has history of COPD, he is on 6 L of oxygen at home all the time. Patient also has history of CHF, he is on Lasix. Patient said he has been sick for about 2 weeks with trouble breathing. The last few days his symptoms got worse so today he called EMS to take him here for evaluation. EMS stated that patient was in respiratory distress, they gave him a DuoNeb on route here. Patient said his legs have been swollen, he has been wearing JOSÉ hose at home. Patient complains of trouble breathing with exertion. Patient denies any chest pain. Upon arrival to ER, patient was in respiratory distress, increased work of breathing, Review of Systems: Review of Systems: Constitutional: Denies fever or chills. [] Eyes: Denies change in visual acuity. [] HENT: Denies nasal congestion or sore throat. [] Respiratory: Positive for cough and trouble breathing. Cardiovascular: Denies chest pain, positive for leg edema GI: Denies abdominal pain, nausea, vomiting, bloody stools or diarrhea. [] : Denies dysuria. [] Musculoskeletal: Denies back pain or joint pain. [] Integument: Denies rash. [] Neurologic: Denies headache, focal weakness or sensory changes. [] Endocrine: Denies polyuria or polydipsia. [] Lymphatic: Denies swollen glands. [] Psychiatric: Denies depression or anxiety. [] Heart Score: C/O Chest Pain: N/A Risk Factors: Risk Factors: DM, Current or recent (<one month) smoker, HTN, HLP, family history of CAD, obesity. Risk Scores: Score 0 - 3: 2.5% MACE over next 6 weeks - Discharge Home Score 4 - 6: 20.3% MACE over next 6 weeks - Admit for Clinical Observation Score 7 - 10: 72.7% MACE over next 6 weeks - Early Invasive Strategies Current Medications: Current Medications Medications (Trade) Dose Ordered Sig/Theresa Start Time Stop Time Status Last Admin Dose Admin Albuterol/ Ipratropium (Duoneb) 3 ml 1X ONCE 12/03/21 12:00 12/03/21 12:01 DC 12/03/21 12:00 3 ML Digoxin (Lanoxin) 500 mcg 1X ONCE 12/03/21 13:15 12/03/21 13:16 Allergies: Allergies: Allergies Coded Allergies Type Severity Reaction Last Updated Verified No Known Drug Allergies 02/15/15 No Physical Exam: PE: Constitutional: Well developed, well nourished, moderate acute distress, toxic appearance. [] HENT: Normocephalic, atraumatic, bilateral external ears normal, oropharynx moist, no oral exudates, nose normal. [] Eyes: PERRLA, EOMI, conjunctiva normal, no discharge. [] Neck: Normal range of motion, no tenderness, supple, no stridor. [] Cardiovascular: rapid heart rate with irregular rhythm, no murmur [] Lungs & Thorax: Bilateral breath sounds with rales diffusely, crackles at right lung bases to auscultation, tachypnic with retraction Abdomen: Bowel sounds normal, soft, no tenderness, no masses, no pulsatile masses. [] Skin: Warm, dry, no erythema, no rash. [] Back: No tenderness, no CVA tenderness. [] Extremities: No tenderness, no cyanosis, no clubbing, ROM intact, bilateral legs with pitting edema, 4 plus. Neurologic: Alert and oriented X 3, normal motor function, normal sensory function, no focal deficits noted. [] Psychologic: Affect normal, judgement normal, mood normal. [] Current Patient Data: Labs: Laboratory Tests Test 12/03/21 11:58 12/03/21 12:00 12/03/21 12:35 Influenza Type A Antigen Negative (NEGATIVE) Influenza Type B Antigen Negative (NEGATIVE) SARS-CoV-2 Antigen (Rapid) Negative (NEGATIVE) White Blood Count 7.4 x10^3/uL (4.0-11.0) Red Blood Count 4.88 x10^6/uL (4.30-5.70) Hemoglobin 15.6 g/dL (13.0-17.5) Hematocrit 47.0 % (39.0-53.0) Mean Corpuscular Volume 96 fL (79-100) Mean Corpuscular Hemoglobin 32 pg (25-35) Mean Corpuscular Hemoglobin Concent 33 g/dL (31-37) Red Cell Distribution Width 15.5 % (11.5-14.5) H Platelet Count 218 x10^3/uL (140-400) Neutrophils (%) (Auto) 79 % (31-73) H Lymphocytes (%) (Auto) 6 % (24-48) L Monocytes (%) (Auto) 14 % (0-9) H Eosinophils (%) (Auto) 0 % (0-3) Basophils (%) (Auto) 1 % (0-3) Neutrophils # (Auto) 5.8 x10^3/uL (1.8-7.7) Lymphocytes # (Auto) 0.5 x10^3/uL (1.0-4.8) L Monocytes # (Auto) 1.0 x10^3/uL (0.0-1.1) Eosinophils # (Auto) 0.0 x10^3/uL (0.0-0.7) Basophils # (Auto) 0.1 x10^3/uL (0.0-0.2) Segmented Neutrophils % 78 % (35-66) H Band Neutrophils % 3 % (0-9) Lymphocytes % 8 % (24-48) L Atypical Lymphocytes % (Manual) 1 % (0-0) H Monocytes % 10 % (0-10) Platelet Estimate Adequate (ADEQUATE) Sodium Level 131 mmol/L (136-145) L Potassium Level 4.8 mmol/L (3.5-5.1) Chloride Level 90 mmol/L (98-107) L Carbon Dioxide Level 43 mmol/L (21-32) H Anion Gap (6-14) Blood Urea Nitrogen 16 mg/dL (8-26) Creatinine 1.0 mg/dL (0.7-1.3) Estimated GFR (Cockcroft-Gault) 77.6 BUN/Creatinine Ratio 16 (6-20) Glucose Level 113 mg/dL (70-99) H Calcium Level 8.9 mg/dL (8.5-10.1) Magnesium Level 2.3 mg/dL (1.8-2.4) Total Bilirubin 1.7 mg/dL (0.2-1.0) H Aspartate Amino Transferase (AST) 16 U/L (15-37) Alanine Aminotransferase (ALT) 11 U/L (16-63) L Alkaline Phosphatase 78 U/L (46-116) Troponin I High Sensitivity 16 ng/L (4-75) AC-Cob-W-Type Natriuretic Peptide 4035 pg/mL (0-124) H Total Protein 7.9 g/dL (6.4-8.2) Albumin 3.4 g/dL (3.4-5.0) Albumin/Globulin Ratio 0.8 (1.0-1.7) L O2 Saturation 89 % (92-99) L Arterial Blood pH 7.33 (7.35-7.45) L Arterial Blood pCO2 at Patient Temp 68 mmHg (35-46) *H Arterial Blood pO2 at Patient Temp 62 mmHg (75-108) L Arterial Blood HCO3 35 mmol/L (21-28) H Arterial Blood Base Excess 7 mmol/L (-3-3) H FiO2 60 Laboratory Tests 12/03/21 12:00 Laboratory Tests 12/03/21 12:00 Vital Signs: Vital Signs Date Time Temp Pulse Resp B/P (MAP) Pulse Ox O2 Delivery O2 Flow Rate FiO2 12/03/21 12:42 100.2 135 26 92/68 (76 93 BiPAP/CPAP 60.0 100.2 EKG: EKG: KG done at 1246, heart rate 149 bpm, atrial fibrillation, no ST segment ovation Radiology/Procedures: Radiology/Procedures: [][facility] [address] [place], [place] [id number] IMAGING REPORT Signed PATIENT: ELIUD RICCI ACCOUNT: [id number] : 1965 LOCATION: ER AGE: 56 SEX: M EXAM STATUS: REG ER ORD. PHYSICIAN: LUISANA VYAS DO REASON: soa PROCEDURE: CHEST AP ONLY Site ID: [id number] EXAMINATION: XR CHEST 1V. HISTORY: 56 years Male Reason: soa COMPARISON: September 23, 2021. Findings: Patchy infiltrates are seen in the catheter right lower lobe. There is minimal vascular congestion. The heart size is enlarged. There is no effusion or pneumothorax. The mediastinum and lakesha appear unremarkable. Impression: Cardiomegaly with minimal vascular congestion. Patchy right basilar infiltrate. Electronically signed by: Shoshana Lala MD (12/03/2021 1:06 PM) [id number] DICTATED and SIGNED BY: SHOSHANA LALA MD DATE: 12/03/21 [id number] 0 Course & Med Decision Making: Course & Med Decision Making Pertinent Labs and Imaging studies reviewed. (See chart for details) Patient is a 56-year-old male who was brought here by EMS from home due to respiratory distress. Patient was found to have CHF exacerbation with COPD exacerbation. Patient also had infiltration of the right lower lobe. Patient was in respiratory distress, patient was put on BiPAP, patient was doing much better with it. Patient was also in atrial fibrillation with RVR however his blood pressure was low. Patient was given 500 mcg of digoxin IV and 500 ml of NS IV BOLUS due to his low blood pressure. Patient will be admitted to hospital for further evaluation and treatment. Dragon Disclaimer: Dragon Disclaimer: This electronic medical record was generated, in whole or in part, using a voice recognition dictation system. Departure Departure Impression: Primary Impression: CHF exacerbation Additional Impressions: COPD exacerbation Pneumonia Atrial fibrillation with RVR Disposition: ADMITTED INPATIENT Admitting Physician: GISELLA (Dr. Mcnally) Condition: STABLE Referrals: Génesis CESAR MD (PCP) LUISANA VYAS DO Dec 03, 2021 13:15
[2021-12-03] MEDS ORDERED: FUROSEMIDE 100 MG/10 ML VIAL. IVP ONE (14:00)
[2021-12-03] MEDS ORDERED: ZOLPIDEM 5 MG TABLET. PO PRN (14:30)
[2021-12-03] MEDS ORDERED: DOCUSATE SODIUM 100 MG CAPSULE. PO PRN (14:30)
[2021-12-03] MEDS ORDERED: diphenhydrAMINE 50 MG/ML VIAL IVP PRN (14:30)
[2021-12-03] MEDS ORDERED: ONDANSETRON PF 4 MG/2 ML VIAL. IVP PRN (14:30)
[2021-12-03] MEDS ORDERED: ACETAMINOPHEN 325 MG TABLET. PO PRN (14:30)
[2021-12-03] MEDS ORDERED: PROCHLORPERAZINE 10 MG/2 ML VIAL. IV PRN (14:30)
[2021-12-03] MEDS ORDERED: diphenhydrAMINE HCL 25 MG CAPSULE PO PRN ×2 (14:30)
[2021-12-03] MEDS ORDERED: LORazepam 0.5 MG TABLET PO PRN (14:30)
--- NOTE | 2021-12-03 14:38 | PDOC1 ---
History and Physical Date of Service: DOS: DATE: 12/03/21 TIME: 14:23 Chief Complaint: Chief Complain: Shortness of breath History of Present Illness: HPI: 56-year-old male with past medical history of CHF, COPD on 6 L home O2, diabetes mellitus 2 Who comes in with shortness of breath for the past several weeks. The past few days has worsened to the point where he needed to come to the ED for further evaluation. Patient is on torsemide at home for his CHF. Patient currently denies any chest pain or fevers or cough or body aches or dysuria or hematuria or abdominal pain or diarrhea. Past Medical/Surgical History: PMH/PSH: Past Medical History: CHF, COPD, Diabetes-Type II, History of COPD on 6 L of home oxygen, history of CHF on torsemide Past Surgical History: vasectomy Allergies: Allergies: Coded Allergies: No Known Drug Allergies (Unverified , 02/15/15) Family History: Family History: History of CAD and obesity Social History: Social History: Smoking Status: Current Some Day Smoker Alcohol Use: None Drug Use: None Current Medications: Current Medications Current Medications Albuterol/ Ipratropium (Duoneb) 3 ml 1X ONCE NEB Last administered on 12/03/21at 12:00; Start 12/03/21 at 12:00; Stop 12/03/21 at 12:01; Status DC Digoxin (Lanoxin) 500 mcg 1X ONCE IV Last administered on 12/03/21at 13:35; Start 12/03/21 at 13:15; Stop 12/03/21 at 13:16; Status DC Ceftriaxone Sodium (Rocephin) 1 gm 1X ONCE IVP Last administered on 12/03/21at 13:34; Start 12/03/21 at 13:15; Stop 12/03/21 at 13:18; Status DC Azithromycin 250 ml @ 250 mls/hr 1X ONCE IV Last administered on 12/03/21at 13:33; Start 12/03/21 at 13:15; Stop 12/03/21 at 14:14; Status DC Sodium Chloride 500 ml @ 500 mls/hr 1X ONCE IV Last administered on 12/03/21at 13:28; Start 12/03/21 at 13:15; Stop 12/03/21 at 14:14; Status DC Furosemide (Lasix) 60 mg 1X ONCE IVP ; Start 12/03/21 at 14:00; Stop 12/03/21 at 14:01; Status DC Active Scripts Active Augmentin 500-125 Tablet (Amoxicillin/Potassium Clav) 1 Each Tablet 1 Tab PO BID 3 Days Prednisone 20 Mg Tablet 1 Tab PO DAILY 5 Days Eliquis (Apixaban) 5 Mg Tablet 5 Mg PO BID 30 Days Diltiazem 24Hr Cd (Diltiazem HCl) 240 Mg Cap.er.24h 240 Mg PO DAILY 30 Days [Albuterol Sulfate] 2.5 MG/3 ML Nebu 2.5 Mg NEB PRN Q2HR PRN Reported Advair 500-50 Diskus (Fluticasone/Salmeterol) 1 Each Disk.w.dev 1 Puff INH BID Albuterol Sulfate Neb Soln (Albuterol Sulfate) 2.5 Mg/3 Ml Vial.neb 2.5 Mg NEB PRN Q4-6HRS PRN Glyxambi 25 mg-5 mg Tablet (Empagliflozin/Linagliptin) 1 Each Tablet 1 Each PO DAILY Metformin Hcl Er (Metformin Hcl) 500 Mg Tab.er.24 500 Mg PO BID Lisinopril 5 Mg Tablet 10 Mg PO DAILY Glimepiride 4 Mg Tablet 4 Mg PO BID Torsemide 20 Mg Tablet 20 Mg PO BID Spiriva (Tiotropium Lopeno) 18 Mcg Cap.w.dev 18 Mcg IH DAILY ROS: Review of Systems Review of System REVIEW OF SYSTEMS: GENERAL: Denies weakness SKIN: No bruising, hair changes or rashes. EYES: No blurred, double or loss of vision. NOSE AND THROAT: No history of nosebleeds, hoarseness or sore throat. HEART: No history of palpitations, chest pain or shortness of breath on exertion. LUNGS: Denies cough, hemoptysis, wheezing or shortness of breath. GASTROINTESTINAL: Denies changes in appetite, nausea, vomiting, diarrhea or constipation. GENITOURINARY: No history of frequency, urgency, hesitancy or nocturia. NEUROLOGIC: Denies history of numbness, tingling, or tremor. PSYCHIATRIC: No history of panic, anxiety or depression. ENDOCRINE: No history of heat or cold intolerance, polyuria or polydipsia. EXTREMITIES: Denies joint pain, pain on walking or stiffness. Physical Exam: Vital Signs: Vital Signs Date Time Temp Pulse Resp B/P (MAP) Pulse Ox O2 Delivery O2 Flow Rate FiO2 12/03/21 14:01 100.2 134 16 80/55 (63) 95 BiPAP/CPAP 60.0 100.2 Physcial Exam: General: Well developed, well nourished, no acute distress, well appearing HEENT: Pupils equally round and reactive to light, EOMI, no discharge, normal conjunctiva Neck: Supple, no nuchal rigidity, no JVD, trachea midline, no tenderness Cardiac: RRR, no murmurs, no gallops, no rubs Chest/Lungs: CTAB, no wheeze, no rhonchi, no crackles Abdomen: soft, non-distended, no guarding, no peritoneal signs, non-tender Back: No tenderness Extremities: Bilateral pedal at edema, pulses intact, non-tender,capillary refill <3 sec bilateral upper and lower extremities, Neuro: Alert and oriented x 4, no focal deficits, normal speech Labs: Labs: Laboratory Tests Test 12/03/21 11:58 12/03/21 12:00 12/03/21 12:10 12/03/21 12:35 Influenza Type A Antigen Negative (NEGATIVE) Influenza Type B Antigen Negative (NEGATIVE) SARS-CoV-2 Antigen (Rapid) Negative (NEGATIVE) White Blood Count 7.4 x10^3/uL (4.0-11.0) Red Blood Count 4.88 x10^6/uL (4.30-5.70) Hemoglobin 15.6 g/dL (13.0-17.5) Hematocrit 47.0 % (39.0-53.0) Mean Corpuscular Volume 96 fL (79-100) Mean Corpuscular Hemoglobin 32 pg (25-35) Mean Corpuscular Hemoglobin Concent 33 g/dL (31-37) Red Cell Distribution Width 15.5 % (11.5-14.5) Platelet Count 218 x10^3/uL (140-400) Neutrophils (%) (Auto) 79 % (31-73) Lymphocytes (%) (Auto) 6 % (24-48) Monocytes (%) (Auto) 14 % (0-9) Eosinophils (%) (Auto) 0 % (0-3) Basophils (%) (Auto) 1 % (0-3) Neutrophils # (Auto) 5.8 x10^3/uL (1.8-7.7) Lymphocytes # (Auto) 0.5 x10^3/uL (1.0-4.8) Monocytes # (Auto) 1.0 x10^3/uL (0.0-1.1) Eosinophils # (Auto) 0.0 x10^3/uL (0.0-0.7) Basophils # (Auto) 0.1 x10^3/uL (0.0-0.2) Segmented Neutrophils % 78 % (35-66) Band Neutrophils % 3 % (0-9) Lymphocytes % 8 % (24-48) Atypical Lymphocytes % (Manual) 1 % (0-0) Monocytes % 10 % (0-10) Platelet Estimate Adequate (ADEQUATE) Sodium Level 131 mmol/L (136-145) Potassium Level 4.8 mmol/L (3.5-5.1) Chloride Level 90 mmol/L (98-107) Carbon Dioxide Level 43 mmol/L (21-32) Anion Gap (6-14) Blood Urea Nitrogen 16 mg/dL (8-26) Creatinine 1.0 mg/dL (0.7-1.3) Estimated GFR (Cockcroft-Gault) 77.6 BUN/Creatinine Ratio 16 (6-20) Glucose Level 113 mg/dL (70-99) Calcium Level 8.9 mg/dL (8.5-10.1) Magnesium Level 2.3 mg/dL (1.8-2.4) Total Bilirubin 1.7 mg/dL (0.2-1.0) Aspartate Amino Transf (AST/SGOT) 16 U/L (15-37) Alanine Aminotransferase (ALT/SGPT) 11 U/L (16-63) Alkaline Phosphatase 78 U/L (46-116) Troponin I High Sensitivity 16 ng/L (4-75) DK-Jdl-N-Type Natriuretic Peptide 4035 pg/mL (0-124) Total Protein 7.9 g/dL (6.4-8.2) Albumin 3.4 g/dL (3.4-5.0) Albumin/Globulin Ratio 0.8 (1.0-1.7) Lactic Acid Level 2.5 mmol/L (0.4-2.0) O2 Saturation 89 % (92-99) Arterial Blood pH 7.33 (7.35-7.45) Arterial Blood pCO2 at Patient Temp 68 mmHg (35-46) Arterial Blood pO2 at Patient Temp 62 mmHg (75-108) Arterial Blood HCO3 35 mmol/L (21-28) Arterial Blood Base Excess 7 mmol/L (-3-3) FiO2 60 Laboratory Tests Test 12/03/21 11:58 12/03/21 12:00 12/03/21 12:10 12/03/21 12:35 Influenza Type A Antigen Negative (NEGATIVE) Influenza Type B Antigen Negative (NEGATIVE) SARS-CoV-2 Antigen (Rapid) Negative (NEGATIVE) White Blood Count 7.4 x10^3/uL (4.0-11.0) Red Blood Count 4.88 x10^6/uL (4.30-5.70) Hemoglobin 15.6 g/dL (13.0-17.5) Hematocrit 47.0 % (39.0-53.0) Mean Corpuscular Volume 96 fL (79-100) Mean Corpuscular Hemoglobin 32 pg (25-35) Mean Corpuscular Hemoglobin Concent 33 g/dL (31-37) Red Cell Distribution Width 15.5 % (11.5-14.5) Platelet Count 218 x10^3/uL (140-400) Neutrophils (%) (Auto) 79 % (31-73) Lymphocytes (%) (Auto) 6 % (24-48) Monocytes (%) (Auto) 14 % (0-9) Eosinophils (%) (Auto) 0 % (0-3) Basophils (%) (Auto) 1 % (0-3) Neutrophils # (Auto) 5.8 x10^3/uL (1.8-7.7) Lymphocytes # (Auto) 0.5 x10^3/uL (1.0-4.8) Monocytes # (Auto) 1.0 x10^3/uL (0.0-1.1) Eosinophils # (Auto) 0.0 x10^3/uL (0.0-0.7) Basophils # (Auto) 0.1 x10^3/uL (0.0-0.2) Segmented Neutrophils % 78 % (35-66) Band Neutrophils % 3 % (0-9) Lymphocytes % 8 % (24-48) Atypical Lymphocytes % (Manual) 1 % (0-0) Monocytes % 10 % (0-10) Platelet Estimate Adequate (ADEQUATE) Sodium Level 131 mmol/L (136-145) Potassium Level 4.8 mmol/L (3.5-5.1) Chloride Level 90 mmol/L (98-107) Carbon Dioxide Level 43 mmol/L (21-32) Anion Gap (6-14) Blood Urea Nitrogen 16 mg/dL (8-26) Creatinine 1.0 mg/dL (0.7-1.3) Estimated GFR (Cockcroft-Gault) 77.6 BUN/Creatinine Ratio 16 (6-20) Glucose Level 113 mg/dL (70-99) Calcium Level 8.9 mg/dL (8.5-10.1) Magnesium Level 2.3 mg/dL (1.8-2.4) Total Bilirubin 1.7 mg/dL (0.2-1.0) Aspartate Amino Transf (AST/SGOT) 16 U/L (15-37) Alanine Aminotransferase (ALT/SGPT) 11 U/L (16-63) Alkaline Phosphatase 78 U/L (46-116) Troponin I High Sensitivity 16 ng/L (4-75) QD-Uke-B-Type Natriuretic Peptide 4035 pg/mL (0-124) Total Protein 7.9 g/dL (6.4-8.2) Albumin 3.4 g/dL (3.4-5.0) Albumin/Globulin Ratio 0.8 (1.0-1.7) Lactic Acid Level 2.5 mmol/L (0.4-2.0) O2 Saturation 89 % (92-99) Arterial Blood pH 7.33 (7.35-7.45) Arterial Blood pCO2 at Patient Temp 68 mmHg (35-46) Arterial Blood pO2 at Patient Temp 62 mmHg (75-108) Arterial Blood HCO3 35 mmol/L (21-28) Arterial Blood Base Excess 7 mmol/L (-3-3) FiO2 60 Images: Images PROCEDURE: CHEST AP ONLY Site ID: [id number] EXAMINATION: XR CHEST 1V. HISTORY: 56 years Male Reason: soa COMPARISON: September 23, 2021. Findings: Patchy infiltrates are seen in the catheter right lower lobe. There is minimal vascular congestion. The heart size is enlarged. There is no effusion or pneumothorax. The mediastinum and lakes[place] appear unremarkable. Impression: Cardiomegaly with minimal vascular congestion. Patchy right basilar infiltrate. Assessment/Plan Assessment/Plan Sepsis Acute hypoxic/hypercapnic respiratory failure requiring BiPAP support Right lower lobe pneumonia, possible gram-negative organisms possible aspiration Hemodynamic instability, possible septic shock A. fib RVR Acute electrolyte derangementhyponatremia, hypochloremia suggestive of volume depletion Acute on chronic respiratory acidosis Lactic acidemia Elevated BNP suggestive of volume overload History of COPD History of atrial fibrillation History of diabetes mellitus type 2 History of tobacco misuse Admit to ICU for further management Continue empiric IV antibiotics Pulmonology consult for O2 management Cardiology consult for atrial fibrillation Pending blood and sputum cultures Pending urine Legionella antigen and MRSA screen Continue telemetry monitoring Cardiology consult R ISS and Accu-Cheks Lovenox for DVT prophylaxis Protonix GI prophylaxis ADA diet CODE STATUS assumed full code Discussed with RN and SW Disposition continue ICU care DPOA: Kailee Pelayo A total of 45 minutes of critical care time was spent in reviewing chart, labs, and images. Discussed with RN and SW. Justifications for Admission Other Justification Acute hypoxemic respiratory failure LEEROY LUIS MD Dec 03, 2021 14:38
[2021-12-03] MEDS: DOXYCYCLINE HYCLATE 100 MG in IV DEXTROSE 5% 100ML 100 ML IV SCH ×2 (15:00→21:18)
[2021-12-03] MEDS ORDERED: VANCOMYCIN 2 GM in IV NORMAL SALINE 500ML BAG 500 ML IV ONE (15:00)
--- NOTE | 2021-12-03 15:36 | EKG ---
[facility] [address] [place] [address] Test Date: 2021-12-03 Test Time: 12:46:57 Pat Name: ELIUD RICCI Department: Room: ED HOLD 21 Gender: M [employer]: : 1965 Requested By: LUISANA VYAS Order Number: [id number] Reading MD: Willian Crawford Measurements Intervals [place] Rate: 149 P: FL: QRS: 242 QRSD: 102 T: 16 QT: 294 QTc: 467 Interpretive Statements ATRIAL FIBRILLATION WITH RVR LOW LIMB LEAD VOLTAGE RIGHT BUNDLE BRANCH BLOCK Electronically Signed On 12-04-2021 14:58:38 CHART WRITER by Willian Crawford
[2021-12-03] MEDS: INSULIN LISPRO 300 UNITS/3 ML VIAL. SQ SCH (17:00)
[2021-12-03] MEDS: VANCOMYCIN PER PHARMACY MC PRN (18:08)
--- NOTE | 2021-12-03 18:09 | NUR ---
Pharmacy Vancomycin Dosing Note S:Consulted to monitor and dose vancomycin started 12/03/21. O:ELIUD RICCI is a 56 year old M with Pneumonia. Height: 6 feet, 3 inches Weight: 122.7 kg [place] Body Weight: 84.50 Adjusted Body Weight: 99.78 Dosing Weight: Actual Other Antibiotics: doxycycline cefepime LABS: Last BUN: 16 Last Creatinine: 1 Creatinine Clearance: > 100 mL/min Last WBC: 7.4 Last Procalcitonin: -- Tmax (past 24 hours): 100.2 Microbiology: 12/03 blood cx: pending cx I/O: -- Last dose given 12/03/21 at 1504 Vancomycin Dosing: Loading Dose: 2000 mg x1 Dosing Weight: Actual Target Trough: 10-20 A: Based on: patient's age, weight and renal function. P: 1. Begin Vancomycin 1000 mg IV q8h after initial loading dose. 2. Follow up Trough level on 12/04/21 at 1430. 3. Pharmacy will continue to monitor, follow and adjust therapy as needed. MELISSA MEADE Michelle, 12/03/21 [id number]
[2021-12-03] MEDS ORDERED: FURO40TA4 PO (18:36)
[2021-12-03 19:09] VITALS: BP 76/58
[2021-12-03] MEDS: ENOXAPARIN 40 MG/0.4 ML SYRINGE. SQ SCH (19:41)
[2021-12-03] MEDS: CEFEPIME HCL IV Push 1 GM VIAL. IVP SCH (19:42)
[2021-12-03] MEDS: DEXTROSE 50% 25 GM / 50ML DISP.SYRIN. IV PRN (21:17)
[2021-12-03 22:34] VITALS: BP 75/53
[2021-12-03 22:51] VITALS: BP 82/52
[2021-12-03] MEDS ORDERED: IV NORMAL SALINE 500ML BAG 250 ML IV ONE (23:00)
[2021-12-03 23:34] VITALS: BP 85/61
[2021-12-03 23:44] VITALS: BP 90/60
[2021-12-04] VITALS (33 sets, daily range): BP systolic 71–165; BP diastolic 47–95
[2021-12-04] MEDS ORDERED: DIGOXIN IV 500 MCG/2 ML AMPUL. IV ONE (00:15)
[2021-12-04] MEDS: VANCOMYCIN 1 GM in IV NORMAL SALINE 250ML 250 ML IV SCH ×4 (00:24→23:41)
[2021-12-04] MEDS: DEXTROSE 50% 25 GM / 50ML DISP.SYRIN. IV PRN ×10 (01:57→13:09)
[2021-12-04 05:23] LABS: BASO % 1 % (0-3); EOS % 0 % (0-3); HEMATOCRIT 42.7 % (39.0-53.0); LYMPH # 0.5 x10^3/uL (1.0-4.8); LYMPH % 11 % (24-48); MEAN CORPUSCULAR HEMOGLOBIN 32 pg (25-35); MEAN CORPUSCULAR HGB CONC 33 g/dL (31-37); MEAN CORPUSCULAR VOLUME 97 fL (79-100); MONO % 21 % (0-9); NEUT # 3.3 x10^3/uL (1.8-7.7); NEUT % 68 % (31-73); PLATELET COUNT 162 x10^3/uL (140-400); RED CELL DISTRIBUTION WIDTH 15.6 % (11.5-14.5); WHITE BLOOD COUNT 4.8 x10^3/uL (4.0-11.0)
[2021-12-04] MEDS: IV DEXTROSE 5% - 0.9 % NACL 1,000 ML IV SCH (05:33)
[2021-12-04] MEDS: CEFEPIME HCL IV Push 1 GM VIAL. IVP SCH ×3 (06:03→22:07)
[2021-12-04 07:01] LABS: CALCIUM 8.3 mg/dL (8.5-10.1); CREATININE 0.9 mg/dL (0.7-1.3); GFR 87.6; MAGNESIUM 2.3 mg/dL (1.8-2.4); PHOSPHORUS 5.9 mg/dL (2.6-4.7); POTASSIUM 4.3 mmol/L (3.5-5.1)
[2021-12-04] MEDS: INSULIN LISPRO 300 UNITS/3 ML VIAL. SQ SCH ×3 (07:24→17:00)
[2021-12-04] MEDS: DOXYCYCLINE HYCLATE 100 MG in IV DEXTROSE 5% 100ML 100 ML IV SCH ×2 (07:53→20:55)
[2021-12-04] MEDS: PANTOPRAZOLE 40 MG TABLET.DR. PO SCH (07:53)
[2021-12-04] MEDS ORDERED: GLUCAGON,HUMAN RECOMBINANT 1 MG/ML VIAL. IV ONE ×2 (08:30→12:45)
--- NOTE | 2021-12-04 10:03 | PDOC2 ---
ULISES HOUGH TOXICOLOGY SUPERVISOR 12/04/21 1003: CARDIAC CONSULT DATE OF CONSULT Date of Consult DATE: 12/04/21 TIME: 09:29 REASON FOR CONSULT Reason for Consult: AFIB CHF REFERRING PHYSICIAN Referring Physician: Pratik SOURCE Source: Chart review, Patient HISTORY OF PRESENT ILLNESS HISTORY OF PRESENT ILLNESS This is a 56 yo male admitted for complains of SOA despit O2 supplement. He has hx of COPD, CHF and uses O2 at 6 LPM at home. He has not been feeling well in the last 1-2 weeks and has gotten worse. Positive for increasing leg swelling and orthopnea. Denies any chest pain, nausea or palpitations. He is vaccinated for covid-19. PAST MEDICAL HISTORY Past Medical History Cardiovascular: CHF, HTN, Hyperlipidemia Pulmonary: COPD, Pneumonia, Other (BALTA) GI: GERD Endocrine: Diabetes PAST SURGICAL HISTORY Past Surgical History Cholecystectomy, Other (vasectomy ) FAMILY HISTORY Family History: Diabetes, Hypertension SOCIAL HISTORY Smoke: Quit ALCOHOL: none Drugs: None Lives: with Family CURRENT MEDICATIONS CURRENT MEDICATIONS Current Medications Medications (Trade) Dose Ordered Sig/Theresa Route PRN Reason Start Time Stop Time Status Last Admin Dose Admin Albuterol/ Ipratropium (Duoneb) 3 ml 1X ONCE NEB 12/03/21 12:00 12/03/21 12:01 DC 12/03/21 12:00 Digoxin (Lanoxin) 500 mcg 1X ONCE IV 12/03/21 13:15 12/03/21 13:16 DC 12/03/21 13:35 Ceftriaxone Sodium (Rocephin) 1 gm 1X ONCE IVP 12/03/21 13:15 12/03/21 13:18 DC 12/03/21 13:34 Azithromycin 250 ml @ 250 mls/hr 1X ONCE IV 12/03/21 13:15 12/03/21 14:14 DC 12/03/21 13:33 Sodium Chloride 500 ml @ 500 mls/hr 1X ONCE IV 12/03/21 13:15 12/03/21 14:14 DC 12/03/21 13:28 Furosemide (Lasix) 60 mg 1X ONCE IVP 12/03/21 14:00 12/03/21 14:01 DC 12/03/21 15:02 Vancomycin HCl (Vanco Per Pharmacy) 1 each PRN DAILY PRN MC SEE COMMENTS 12/03/21 14:30 12/10/21 14:29 12/03/21 18:08 Cefepime HCl (Maxipime) 1 gm Q8HRS IVP 12/03/21 22:00 12/10/21 21:59 12/04/21 06:03 Doxycycline Hyclate 100 mg/ Dextrose 100 ml @ 50 mls/hr BID IV 12/03/21 15:00 12/10/21 14:59 12/04/21 07:53 Dextrose (Dextrose 50%-Water Syringe) 12.5 gm PRN Q15MIN PRN IV SEE COMMENTS 12/03/21 14:30 12/04/21 07:05 DC 12/04/21 06:32 Enoxaparin Sodium (Lovenox 40mg Syringe) 40 mg Q24H SQ 12/03/21 15:00 12/03/21 19:41 Pantoprazole Sodium (Protonix) 40 mg DAILYAC PO 12/04/21 07:30 12/04/21 07:53 Vancomycin HCl 2 gm/Sodium Chloride 500 ml @ 250 mls/hr 1X ONCE IV 12/03/21 15:00 12/03/21 16:59 DC 12/03/21 15:04 Vancomycin HCl 1 gm/Sodium Chloride 250 ml @ 250 mls/hr Q8H IV 12/03/21 23:00 12/04/21 06:17 Digoxin (Lanoxin) 250 mcg 1X ONCE IV 12/03/21 19:15 12/03/21 19:16 DC 12/03/21 19:41 Digoxin (Lanoxin) 250 mcg 1X ONCE IV 12/04/21 00:15 12/04/21 00:16 DC 12/04/21 00:22 Sodium Chloride 250 ml @ 250 mls/hr 1X ONCE IV 12/03/21 23:00 12/03/21 23:59 DC 12/03/21 23:00 Sodium Chloride 500 ml @ 250 mls/hr 1X ONCE IV 12/03/21 23:30 12/04/21 01:29 DC 12/03/21 23:39 Dextrose/Sodium Chloride 1,000 ml @ 50 mls/hr Q20H IV 12/04/21 05:30 12/04/21 05:33 Dextrose (Dextrose 50%-Water Syringe) 50 gm PRN 1X PRN IV HYPOGLYCEMIA 12/04/21 07:15 12/04/21 07:56 Glucagon (Glucagen) 1 mg 1X ONCE IV 12/04/21 08:30 12/04/21 08:37 DC 12/04/21 09:15 ALLERGIES ALLERGIES: Coded Allergies: No Known Drug Allergies (Unverified , 02/15/15) ROS Review of System 14 point ROS evaluated with pertinent positives noted per HPI PHYSICAL EXAM General: Alert, Oriented X3, Cooperative, moderate distress HEENT: Atraumatic, Mucous membr. moist/pink Lungs: Other (diffuse wheeze) Heart: Other (AFIB RVR, distant heart sounds) Abdomen: Soft, Other (obese) Extremities: Other (3-4+ bilateral LE pitting edema) Skin: Other (tinea pedis bilaterally) Neuro: Normal speech, Sensation intact Psych/Mental Status: Mental status NL, Mood NL MUSCULOSKELETAL: Osteoarthritic changes both hands VITALS/I&O VITALS/I&O: Vital Signs Date Time Temp Pulse Resp B/P (MAP) Pulse Ox O2 Delivery O2 Flow Rate FiO2 12/04/21 09:16 100 BiPAP/CPAP 12/04/21 06:39 104 92/59 (70) 12/03/21 22:34 98.2 26 98.2 12/03/21 16:57 60.0 I & O 12/03/21 12/03/21 12/04/21 15:00 23:00 07:00 Intake Total 750 ml 600 ml 1300 ml Output Total 200 ml 250 ml Balance 750 ml 400 ml 1050 ml LABS Lab: Laboratory Tests Test 12/03/21 11:58 12/03/21 12:00 12/03/21 12:10 12/03/21 12:35 Influenza Type A Antigen Negative (NEGATIVE) Influenza Type B Antigen Negative (NEGATIVE) SARS-CoV-2 RNA (MONIQUE) Negative (Negative) SARS-CoV-2 Antigen (Rapid) Negative (NEGATIVE) White Blood Count 7.4 x10^3/uL (4.0-11.0) Red Blood Count 4.88 x10^6/uL (4.30-5.70) Hemoglobin 15.6 g/dL (13.0-17.5) Hematocrit 47.0 % (39.0-53.0) Mean Corpuscular Volume 96 fL (79-100) Mean Corpuscular Hemoglobin 32 pg (25-35) Mean Corpuscular Hemoglobin Concent 33 g/dL (31-37) Red Cell Distribution Width 15.5 % (11.5-14.5) H Platelet Count 218 x10^3/uL (140-400) Neutrophils (%) (Auto) 79 % (31-73) H Lymphocytes (%) (Auto) 6 % (24-48) L Monocytes (%) (Auto) 14 % (0-9) H Eosinophils (%) (Auto) 0 % (0-3) Basophils (%) (Auto) 1 % (0-3) Neutrophils # (Auto) 5.8 x10^3/uL (1.8-7.7) Lymphocytes # (Auto) 0.5 x10^3/uL (1.0-4.8) L Monocytes # (Auto) 1.0 x10^3/uL (0.0-1.1) Eosinophils # (Auto) 0.0 x10^3/uL (0.0-0.7) Basophils # (Auto) 0.1 x10^3/uL (0.0-0.2) Segmented Neutrophils % 78 % (35-66) H Band Neutrophils % 3 % (0-9) Lymphocytes % 8 % (24-48) L Atypical Lymphocytes % (Manual) 1 % (0-0) H Monocytes % 10 % (0-10) Platelet Estimate Adequate (ADEQUATE) Sodium Level 131 mmol/L (136-145) L Potassium Level 4.8 mmol/L (3.5-5.1) Chloride Level 90 mmol/L (98-107) L Carbon Dioxide Level 43 mmol/L (21-32) H Anion Gap (6-14) Blood Urea Nitrogen 16 mg/dL (8-26) Creatinine 1.0 mg/dL (0.7-1.3) Estimated GFR (Cockcroft-Gault) 77.6 BUN/Creatinine Ratio 16 (6-20) Glucose Level 113 mg/dL (70-99) H Calcium Level 8.9 mg/dL (8.5-10.1) Magnesium Level 2.3 mg/dL (1.8-2.4) Total Bilirubin 1.7 mg/dL (0.2-1.0) H Aspartate Amino Transferase (AST) 16 U/L (15-37) Alanine Aminotransferase (ALT) 11 U/L (16-63) L Alkaline Phosphatase 78 U/L (46-116) Troponin I High Sensitivity 16 ng/L (4-75) SK-Png-R-Type Natriuretic Peptide 4035 pg/mL (0-124) H Total Protein 7.9 g/dL (6.4-8.2) Albumin 3.4 g/dL (3.4-5.0) Albumin/Globulin Ratio 0.8 (1.0-1.7) L Procalcitonin < 0.10 ng/mL (0.00-0.10) Lactic Acid Level 2.5 mmol/L (0.4-2.0) H O2 Saturation 89 % (92-99) L Arterial Blood pH 7.33 (7.35-7.45) L Arterial Blood pCO2 at Patient Temp 68 mmHg (35-46) *H Arterial Blood pO2 at Patient Temp 62 mmHg (75-108) L Arterial Blood HCO3 35 mmol/L (21-28) H Arterial Blood Base Excess 7 mmol/L (-3-3) H FiO2 60 Test 12/03/21 19:20 12/03/21 21:05 12/03/21 21:12 12/03/21 21:21 Lactic Acid Level 0.8 mmol/L (0.4-2.0) Glucose (Fingerstick) 27 mg/dL (70-99) *L 23 mg/dL (70-99) *L 100 mg/dL (70-99) H Test 12/03/21 23:04 12/04/21 01:54 12/04/21 02:30 12/04/21 03:05 Glucose (Fingerstick) 87 mg/dL (70-99) 64 mg/dL (70-99) L 59 mg/dL (70-99) L 54 mg/dL (70-99) L Test 12/04/21 03:19 12/04/21 03:41 12/04/21 04:06 12/04/21 04:28 Glucose (Fingerstick) 93 mg/dL (70-99) 56 mg/dL (70-99) L 97 mg/dL (70-99) 69 mg/dL (70-99) L Test 12/04/21 04:30 12/04/21 05:13 12/04/21 05:38 12/04/21 05:56 White Blood Count 4.8 x10^3/uL (4.0-11.0) Red Blood Count 4.40 x10^6/uL (4.30-5.70) Hemoglobin 14.0 g/dL (13.0-17.5) Hematocrit 42.7 % (39.0-53.0) Mean Corpuscular Volume 97 fL (79-100) Mean Corpuscular Hemoglobin 32 pg (25-35) Mean Corpuscular Hemoglobin Concent 33 g/dL (31-37) Red Cell Distribution Width 15.6 % (11.5-14.5) H Platelet Count 162 x10^3/uL (140-400) Neutrophils (%) (Auto) 68 % (31-73) Lymphocytes (%) (Auto) 11 % (24-48) L Monocytes (%) (Auto) 21 % (0-9) H Eosinophils (%) (Auto) 0 % (0-3) Basophils (%) (Auto) 1 % (0-3) Neutrophils # (Auto) 3.3 x10^3/uL (1.8-7.7) Lymphocytes # (Auto) 0.5 x10^3/uL (1.0-4.8) L Monocytes # (Auto) 1.0 x10^3/uL (0.0-1.1) Eosinophils # (Auto) 0.0 x10^3/uL (0.0-0.7) Basophils # (Auto) 0.0 x10^3/uL (0.0-0.2) Sodium Level 133 mmol/L (136-145) L Potassium Level 4.3 mmol/L (3.5-5.1) Chloride Level 92 mmol/L (98-107) L Carbon Dioxide Level 41 mmol/L (21-32) H Anion Gap 0 (6-14) L Blood Urea Nitrogen 18 mg/dL (8-26) Creatinine 0.9 mg/dL (0.7-1.3) Estimated GFR (Cockcroft-Gault) 87.6 Glucose Level 59 mg/dL (70-99) L Calcium Level 8.3 mg/dL (8.5-10.1) L Phosphorus Level 5.9 mg/dL (2.6-4.7) H Magnesium Level 2.3 mg/dL (1.8-2.4) Glucose (Fingerstick) 82 mg/dL (70-99) 48 mg/dL (70-99) *L 82 mg/dL (70-99) Test 12/04/21 06:31 12/04/21 06:59 12/04/21 07:11 12/04/21 08:25 Glucose (Fingerstick) 47 mg/dL (70-99) *L 76 mg/dL (70-99) 73 mg/dL (70-99) 93 mg/dL (70-99) Laboratory Tests 12/03/21 12:00 12/04/21 04:30 Laboratory Tests 12/03/21 12:00 12/04/21 04:30 ASSESSMENT/PLAN ASSESSMENT/PLAN 1. Acute on chronic respiratory failure, AECOPD,CHF and with possible pneumonia. requiring BiPAP support 2. Acute on chronic diastolic CHF 3. PAFIB with RVR: received bolus digoxin, RVR remains 4. DM2 with hypoglycemic reaction: per PCP 5. Hypertension; SBP currently normotensive 6. HLP 7. BALTA 8. Sepsis 9. Significant Tinea pedis: per PCP Recommendations Continue Eliquis for stroke prophylaxis. Cardizem bolus monitor BP. He has already received total of 1 gm of digoxin in <24 hrs. If RVR remains and BP could not support CCB then will consider for amiodarone drip. Unable to utilize BB due to bronchospasm Secondary prevention measures BiPAP Lasix therapy Solumedrol x1. Consult pullmonary Ongoing lung optimization, Continue antibiotic therapy Outpatient ischemic evaluation JENNIFFER ROTHMAN MD 12/04/21 1656: CARDIAC CONSULT ASSESSMENT/PLAN ASSESSMENT/PLAN Patient seen and examined. Agree with [employer]'s assessment and plan. Acute respiratory failure secondary to combination of acute COPD exacerbation, pneumonia and acute on chronic diastolic heart failure Patient presently needing BiPAP. Pulmonary team following. Atrial fibrillation with RVR despite giving digoxin. Agree with Cardizem and if blood pressure drops, will consider amiodarone Continue diuresis for acute on chronic diastolic heart failure Thank you for your consultation ULISES HOUGH APRN Dec 04, 2021 10:03 JENNIFFER ROTHMAN MD Dec 04, 2021 16:56
[2021-12-04] MEDS ORDERED: ANTI-COAG MONITOR BY PHARMACY. MC PRN (10:15)
[2021-12-04] MEDS ORDERED: FUROSEMIDE 40 MG/4 ML VIAL. IVP ONE (11:00)
--- NOTE | 2021-12-04 11:10 | CONS ---
DATE OF CONSULTATION: 12/04/2021 PULMONARY CONSULTATION ATTENDING PHYSICIAN: Dr. Mcnally. REASON FOR CONSULTATION: Respiratory failure. HISTORY OF PRESENT ILLNESS: The patient is a 56-year-old male who is very well known to me. He has history of severe COPD, on home oxygen at 6 liters on a 24-hour basis. He also has a history of obesity hypoventilation syndrome and cor pulmonale. He is on home BiPAP. He was brought into the hospital with increasing shortness of breath. He was also noted to have significant increase in his lower extremity edema. He denies any cough, fever or chills. No chest pains. No nausea, vomiting, no diarrhea, no dysuria. The patient's chest x-ray revealed bilateral interstitial infiltrates. His arterial blood gases reveal a pH of 7.33, pCO2 of 68 and a pO2 of 62 on 60% FiO2. The patient is fully vaccinated for COVID. Currently, he is on BiPAP. His influenza screen and COVID screen was negative. He is awake and following commands. PAST MEDICAL HISTORY: Significant for history of severe COPD. chronic hypoxic respiratory failure, history of obesity hypoventilation syndrome and cor pulmonale, history of type 2 diabetes. PAST SURGICAL HISTORY: Vasectomy. ALLERGIES: None. MEDICATIONS: Reviewed as listed in the MRAD including Eliquis. He is on vancomycin, Lovenox for DVT prophylaxis, doxycycline. He received one dose of Lasix in the ER and digoxin as well. REVIEW OF SYSTEMS: Twelve-point review of system obtained. Pertinent positives discussed in my present illness, otherwise noncontributory. All systems that were negative were reviewed as well. SOCIAL HISTORY: Smoked for a long time before quitting. At least 35-40 years of tobaccoism. PHYSICAL EXAMINATION: VITAL SIGNS: Reviewed. Blood pressure 104 systolic, pulse ox is 100%, currently on BiPAP. He is awake, following commands. LUNGS: With diminished breath sounds. CARDIOVASCULAR: With a regular rate. ABDOMEN: Soft. EXTREMITIES: With 3+ pitting edema bilaterally. LABORATORY DATA: Reviewed. His fingerstick was 38, but earlier was 76. Sodium 133, potassium 4.3, BUN 18, creatinine 0.9. His white cell count is 4.8, hemoglobin 14.0 and platelets are 162. IMPRESSION: 1. Acute on chronic hypoxic and hypercapnic respiratory failure secondary to multifactorial etiologies including a combination of acute on chronic right heart failure, AECOPD and Afib with RVR 2. Hypoglycemia may have also contributed to his encephalopathy initially. 3. The patient with underlying severe chronic obstructive pulmonary disease and now comes in with worsening respiratory failure. Acute on chronic obstructive pulmonary disease exacerbation is another trigger. 4. The patient with obesity hypoventilation syndrome and chronic cor pulmonale. On home oxygen at 6 liters and BiPAP at nighttime. 5. Clinically less likely sepsis or infection. 6. Atrial fibrillation with rapid ventricular response, also contributing to heart failure. 7. Fully vaccinated for COVID. An influenza screen and COVID is negative. 8. Abnormal chest x-ray consistent with congestive heart failure. RECOMMENDATIONS: 1. Continue present BiPAP and follow ABGs. Once hypercapnia is compensated and oxygenation improves, we will try him off the BiPAP.Avoid hyperoxia. 2. Continue with Lasix. 3. Monitor renal function. 4. Antibiotics can be deescalated soon. 5. Follow up chest x-ray as needed. 6. Lovenox for DVT prophylaxis. 7. Echocardiogram and Cardiology recommendation. 8. Continue Eliquis. 9. Discussed with RN/ RT. Chart reviewed, imaging studies reviewed. Total critical care time [address]: Alfred TID: [id number] PALMER
--- NOTE | 2021-12-04 11:34 | NUR ---
SS following for discharge planning. SS reviewed pt chart and discussed with pt RN. Pt is from home and is currently on BIPAP at 60%. COVID19 negative. Pt has home oxygen and home BIPAP machine. Per family, pt is vaccinated for COVID19. Cardiology and Pulmonology consulted. SS will continue to follow for discharge planning
[2021-12-04] MEDS ORDERED: methylPREDNISolone SOD SUCC PF 125 MG/2 ML VIAL. IV ONE (11:45)
--- NOTE | 2021-12-04 12:34 | PDOC ---
[facility] PROGRESS NOTE Date of Service DOS: DATE: 12/04/21 TIME: 12:23 Chief Complaint Chief Complaint Assessment/Plan Sepsis Acute hypoxic/hypercapnic respiratory failure requiring BiPAP support Right lower lobe pneumonia, possible gram-negative organisms possible aspiration Hemodynamic instability, possible septic shock A. fib RVR Acute electrolyte derangementhyponatremia, hypochloremia suggestive of volume depletion Acute on chronic respiratory acidosis Lactic acidemia Elevated BNP suggestive of volume overload History of COPD History of atrial fibrillation History of diabetes mellitus type 2 History of tobacco misuse Refractory hypoglycemia related to sulfonylurea use Continue with hypoglycemia protocol with the addition of glucagon as needed to maintain glucose levels greater than 70 Continue empiric IV antibiotics Pulmonology consult for O2 management Cardiology consult for atrial fibrillation Pending blood and sputum cultures Pending urine Legionella antigen and MRSA screen Continue telemetry monitoring Cardiology consult R ISS and Accu-Cheks Lovenox for DVT prophylaxis Protonix GI prophylaxis ADA diet CODE STATUS assumed full code Discussed with RN and SW Disposition continue ICU care DPOA: Kailee Pelayo A total of 35 minutes of critical care time was spent in reviewing chart, labs, and images. Discussed with RN and SW. History of Present Illness History of Present Illness 56-year-old male with past medical history of CHF, COPD on 6 L home O2, diabetes mellitus 2 Who comes in with shortness of breath for the past several weeks. The past few days has worsened to the point where he needed to come to the ED for further evaluation. Patient is on torsemide at home for his CHF. Patient currently denies any chest pain or fevers or cough or body aches or dysuria or h ematuria or abdominal pain or diarrhea. 12/04/2021 Patient tolerating BiPAP not short of breath at this time. Continues to have labile blood pressures and elevated heart rate. Patient having hypoglycemia without any overt hypoglycemic symptoms. Started on D5 NS and amps of dextrose as needed. Attempting to try to maintain sugars greater than 70. 1 dose of glucagon given. Vitals/I&O Vitals/I&O: Vital Signs Date Time Temp Pulse Resp B/P (MAP) Pulse Ox O2 Delivery O2 Flow Rate FiO2 12/04/21 11:42 145 116/82 12/04/21 11:33 98 BiPAP/CPAP 12/04/21 07:00 97.3 30 60.0 97.3 I & O 12/03/21 12/03/21 12/04/21 15:00 23:00 07:00 Intake Total 750 ml 600 ml 1300 ml Output Total 200 ml 250 ml Balance 750 ml 400 ml 1050 ml Physical Exam General: Alert, Oriented X3, Cooperative, moderate distress Heart: Regular rate, Other (AFIB RVR, distant heart sounds) Lungs: Other Abdomen: Soft, Other (obese) Extremities: Other (3-4+ bilateral LE pitting edema) Skin: Other (tinea pedis bilaterally) Labs Labs: Laboratory Tests Test 12/03/21 12:35 12/03/21 19:20 12/03/21 21:05 12/03/21 21:12 O2 Saturation 89 % (92-99) Arterial Blood pH 7.33 (7.35-7.45) Arterial Blood pCO2 at Patient Temp 68 mmHg (35-46) Arterial Blood pO2 at Patient Temp 62 mmHg (75-108) Arterial Blood HCO3 35 mmol/L (21-28) Arterial Blood Base Excess 7 mmol/L (-3-3) FiO2 60 Lactic Acid Level 0.8 mmol/L (0.4-2.0) Glucose (Fingerstick) 27 mg/dL (70-99) 23 mg/dL (70-99) Test 12/03/21 21:21 12/03/21 23:04 12/04/21 01:54 12/04/21 02:30 Glucose (Fingerstick) 100 mg/dL (70-99) 87 mg/dL (70-99) 64 mg/dL (70-99) 59 mg/dL (70-99) Test 12/04/21 03:05 12/04/21 03:19 12/04/21 03:41 12/04/21 04:06 Glucose (Fingerstick) 54 mg/dL (70-99) 93 mg/dL (70-99) 56 mg/dL (70-99) 97 mg/dL (70-99) Test 12/04/21 04:28 12/04/21 04:30 12/04/21 05:13 12/04/21 05:38 Glucose (Fingerstick) 69 mg/dL (70-99) 82 mg/dL (70-99) 48 mg/dL (70-99) White Blood Count 4.8 x10^3/uL (4.0-11.0) Red Blood Count 4.40 x10^6/uL (4.30-5.70) Hemoglobin 14.0 g/dL (13.0-17.5) Hematocrit 42.7 % (39.0-53.0) Mean Corpuscular Volume 97 fL (79-100) Mean Corpuscular Hemoglobin 32 pg (25-35) Mean Corpuscular Hemoglobin Concent 33 g/dL (31-37) Red Cell Distribution Width 15.6 % (11.5-14.5) Platelet Count 162 x10^3/uL (140-400) Neutrophils (%) (Auto) 68 % (31-73) Lymphocytes (%) (Auto) 11 % (24-48) Monocytes (%) (Auto) 21 % (0-9) Eosinophils (%) (Auto) 0 % (0-3) Basophils (%) (Auto) 1 % (0-3) Neutrophils # (Auto) 3.3 x10^3/uL (1.8-7.7) Lymphocytes # (Auto) 0.5 x10^3/uL (1.0-4.8) Monocytes # (Auto) 1.0 x10^3/uL (0.0-1.1) Eosinophils # (Auto) 0.0 x10^3/uL (0.0-0.7) Basophils # (Auto) 0.0 x10^3/uL (0.0-0.2) Sodium Level 133 mmol/L (136-145) Potassium Level 4.3 mmol/L (3.5-5.1) Chloride Level 92 mmol/L (98-107) Carbon Dioxide Level 41 mmol/L (21-32) Anion Gap 0 (6-14) Blood Urea Nitrogen 18 mg/dL (8-26) Creatinine 0.9 mg/dL (0.7-1.3) Estimated GFR (Cockcroft-Gault) 87.6 Glucose Level 59 mg/dL (70-99) Calcium Level 8.3 mg/dL (8.5-10.1) Phosphorus Level 5.9 mg/dL (2.6-4.7) Magnesium Level 2.3 mg/dL (1.8-2.4) Test 12/04/21 05:56 12/04/21 06:31 12/04/21 06:59 12/04/21 07:11 Glucose (Fingerstick) 82 mg/dL (70-99) 47 mg/dL (70-99) 76 mg/dL (70-99) 73 mg/dL (70-99) Test 12/04/21 08:25 12/04/21 09:42 12/04/21 10:41 12/04/21 12:06 Glucose (Fingerstick) 93 mg/dL (70-99) 87 mg/dL (70-99) 38 mg/dL (70-99) 63 mg/dL (70-99) Assessment and Plan Assessmemt and Plan Problems Medical Problems: (1) Atrial fibrillation with RVR Status: Acute (2) CHF exacerbation Status: Acute (3) COPD exacerbation Status: Acute (4) Pneumonia Status: Acute Comment Review of Relevant I have reviewed the following items wade (where applicable) has been applied. Medications: Current Medications Medications (Trade) Dose Ordered Sig/Theresa Route PRN Reason Start Time Stop Time Status Last Admin Dose Admin Digoxin (Lanoxin) 500 mcg 1X ONCE IV 12/03/21 13:15 12/03/21 13:16 DC 12/03/21 13:35 Ceftriaxone Sodium (Rocephin) 1 gm 1X ONCE IVP 12/03/21 13:15 12/03/21 13:18 DC 12/03/21 13:34 Azithromycin 250 ml @ 250 mls/hr 1X ONCE IV 12/03/21 13:15 12/03/21 14:14 DC 12/03/21 13:33 Sodium Chloride 500 ml @ 500 mls/hr 1X ONCE IV 12/03/21 13:15 12/03/21 14:14 DC 12/03/21 13:28 Furosemide (Lasix) 60 mg 1X ONCE IVP 12/03/21 14:00 12/03/21 14:01 DC 12/03/21 15:02 Vancomycin HCl (Vanco Per Pharmacy) 1 each PRN DAILY PRN MC SEE COMMENTS 12/03/21 14:30 12/10/21 14:29 12/03/21 18:08 Cefepime HCl (Maxipime) 1 gm Q8HRS IVP 12/03/21 22:00 12/10/21 21:59 12/04/21 06:03 Doxycycline Hyclate 100 mg/ Dextrose 100 ml @ 50 mls/hr BID IV 12/03/21 15:00 12/10/21 14:59 12/04/21 07:53 Dextrose (Dextrose 50%-Water Syringe) 12.5 gm PRN Q15MIN PRN IV SEE COMMENTS 12/03/21 14:30 12/04/21 07:05 DC 12/04/21 06:32 Enoxaparin Sodium (Lovenox 40mg Syringe) 40 mg Q24H SQ 12/03/21 15:00 12/03/21 19:41 Pantoprazole Sodium (Protonix) 40 mg DAILYAC PO 12/04/21 07:30 12/04/21 07:53 Vancomycin HCl 2 gm/Sodium Chloride 500 ml @ 250 mls/hr 1X ONCE IV 12/03/21 15:00 12/03/21 16:59 DC 12/03/21 15:04 Vancomycin HCl 1 gm/Sodium Chloride 250 ml @ 250 mls/hr Q8H IV 12/03/21 23:00 12/04/21 06:17 Digoxin (Lanoxin) 250 mcg 1X ONCE IV 12/03/21 19:15 12/03/21 19:16 DC 12/03/21 19:41 Digoxin (Lanoxin) 250 mcg 1X ONCE IV 12/04/21 00:15 12/04/21 00:16 DC 12/04/21 00:22 Sodium Chloride 250 ml @ 250 mls/hr 1X ONCE IV 12/03/21 23:00 12/03/21 23:59 DC 12/03/21 23:00 Sodium Chloride 500 ml @ 250 mls/hr 1X ONCE IV 12/03/21 23:30 12/04/21 01:29 DC 12/03/21 23:39 Dextrose/Sodium Chloride 1,000 ml @ 50 mls/hr Q20H IV 12/04/21 05:30 12/04/21 05:33 Dextrose (Dextrose 50%-Water Syringe) 50 gm PRN 1X PRN IV HYPOGLYCEMIA 12/04/21 07:15 12/04/21 10:44 Glucagon (Glucagen) 1 mg 1X ONCE IV 12/04/21 08:30 12/04/21 08:37 DC 12/04/21 09:15 Furosemide (Lasix) 40 mg 1X ONCE IVP 12/04/21 11:00 12/04/21 11:04 DC 12/04/21 11:18 Diltiazem HCl (Cardizem Iv Push) 10 mg 1X ONCE IVP 12/04/21 11:30 12/04/21 11:31 DC 12/04/21 11:42 Diltiazem HCl 125 mg/Sodium Chloride 125 ml @ 5 mls/hr 1X ONCE IV 12/04/21 11:30 12/05/21 12:29 12/04/21 11:30 Methylprednisolone Sodium Succinate (SOLU-Medrol 125MG VIAL) 125 mg 1X ONCE IV 12/04/21 11:45 12/04/21 11:46 DC 12/04/21 11:47 Justifications for Admission Other Justification Acute hypoxemic respiratory failure LEEROY LUIS MD Dec 04, 2021 12:34
[2021-12-04 12:45] LABS: BASE EXCESS ABG 6 mmol/L (-3-3); HCO3 ABG 37 mmol/L (21-28); PO2 ABG 83 mmHg (75-108)
[2021-12-04 12:46] LABS: SAT O2 ABG 94 % (92-99)
[2021-12-04] MEDS: VANCOMYCIN PER PHARMACY MC PRN ×2 (12:49→15:48)
[2021-12-04 12:54] LABS: PCO2 ABG 90 mmHg (35-46)
[2021-12-04] MEDS: ENOXAPARIN 40 MG/0.4 ML SYRINGE. SQ SCH (13:46)
--- NOTE | 2021-12-04 15:50 | NUR ---
Pharmacy Vancomycin Dosing Note S: Consulted to monitor and dose vancomycin started 12/03/21. O: ELIUD RICCI is a 56 year old M with Pneumonia Other Antibiotics: doxycycline cefepime LABS: Last BUN: 18 Last Creatinine: 0.9 Creatinine Clearance: > 100 mL/min Last WBC: 4.8 Last Procalcitonin: <0.1 Tmax (past 24 hours): 100.2 Microbiology: 12/03 blood cx: pending cx I/O: 2650/450 Drug Levels: Last Trough level: 16 on 12/04/21 at 1510 Last dose given 12/04/21 at 0617 Vancomycin Dosing: Dosing Weight: Actual Target Trough: 10-20 A: Based on: trough P: 1. Contine Vancomycin 1000 mg IV q8h 2. Follow up Trough level in 5 days if needed 3. Pharmacy will continue to monitor, follow and adjust therapy as needed. Patricia Rodriguez RPH, 12/04/21 [id number]
[2021-12-04] MEDS: IPRATRPIUM/ALBUTEROL 0.5/2.5MG 3 ML NEBU. NEB SCH ×2 (16:00→21:39)
[2021-12-04 16:51] LABS: BASE EXCESS ABG 10 mmol/L (-3-3); HCO3 ABG 38 mmol/L (21-28); PO2 ABG 54 mmHg (75-108); SAT O2 ABG 87 % (92-99)
[2021-12-04 17:01] LABS: PCO2 ABG 71 mmHg (35-46)
[2021-12-04 17:02] LABS: FIO2 ABG 40% 26/8 26
[2021-12-04] MEDS ORDERED: NOREPINEPHRINE VIAL 8 MG in IV DEXTROSE 5% 250 ML IV PRN (18:00)
[2021-12-04] MEDS: APIXABAN 5 MG TABLET. PO SCH (20:55)
[2021-12-04] MEDS: LACTOBACILLUS RHAMNOSUS GG 1 CAPSULE. PO SCH (20:55)
[2021-12-05] VITALS (26 sets, daily range): BP systolic 77–133; BP diastolic 45–85
[2021-12-05 05:27] LABS: BASO % 0 % (0-3); EOS % 0 % (0-3); HEMATOCRIT 39.1 % (39.0-53.0); HEMOGLOBIN 12.7 g/dL (13.0-17.5); LYMPH # 0.3 x10^3/uL (1.0-4.8); LYMPH % 9 % (24-48); MEAN CORPUSCULAR HEMOGLOBIN 31 pg (25-35); MEAN CORPUSCULAR HGB CONC 33 g/dL (31-37); MEAN CORPUSCULAR VOLUME 97 fL (79-100); MONO # 0.4 x10^3/uL (0.0-1.1); MONO % 11 % (0-9); NEUT # 2.8 x10^3/uL (1.8-7.7); NEUT % 80 % (31-73); PLATELET COUNT 137 x10^3/uL (140-400); RED BLOOD COUNT 4.05 x10^6/uL (4.30-5.70); RED CELL DISTRIBUTION WIDTH 15.2 % (11.5-14.5); WHITE BLOOD COUNT 3.5 x10^3/uL (4.0-11.0)
[2021-12-05 05:43] LABS: BLOOD UREA NITROGEN 22 mg/dL (8-26); CARBON DIOXIDE 38 mmol/L (21-32); CHLORIDE 93 mmol/L (98-107); CREATININE 0.8 mg/dL (0.7-1.3); GFR 100.4; GLUCOSE 99 mg/dL (70-99); MAGNESIUM 2.1 mg/dL (1.8-2.4); POTASSIUM 5.1 mmol/L (3.5-5.1); SODIUM 130 mmol/L (136-145)
[2021-12-05] MEDS: IV DEXTROSE 5% - 0.9 % NACL 1,000 ML IV SCH (06:08)
[2021-12-05] MEDS: CEFEPIME HCL IV Push 1 GM VIAL. IVP SCH ×3 (06:08→21:44)
[2021-12-05] MEDS: PANTOPRAZOLE 40 MG TABLET.DR. PO SCH (07:46)
[2021-12-05] MEDS: VANCOMYCIN 1 GM in IV NORMAL SALINE 250ML 250 ML IV SCH ×3 (07:46→23:05)
[2021-12-05] MEDS: INSULIN LISPRO 300 UNITS/3 ML VIAL. SQ SCH ×3 (07:48→17:00)
[2021-12-05] MEDS: IPRATRPIUM/ALBUTEROL 0.5/2.5MG 3 ML NEBU. NEB SCH ×4 (08:17→21:21)
[2021-12-05 08:28] LABS: BASE EXCESS ABG 12 mmol/L (-3-3); HCO3 ABG 39 mmol/L (21-28); PO2 ABG 86 mmHg (75-108); SAT O2 ABG 96 % (92-99)
--- NOTE | 2021-12-05 09:04 | PDOC ---
ULISES HOUGH [employer] [employer] [facility] 12/05/21 0904: CARDIO Progress Notes Date and Time Date of Service 12/05/2021 Time of Evaluation 0920 Subjective Subjective: No Chest Pain, No Palpitations, Other (on bipap) Vitals Vitals Vital Signs Date Time Temp Pulse Resp B/P (MAP) Pulse Ox O2 Delivery O2 Flow Rate FiO2 12/05/21 08:17 94 BiPAP/CPAP 12/05/21 08:00 60.0 12/05/21 06:00 107 22 133/76 (95) 12/05/21 04:00 98.9 98.9 Weight Weight [ ] Input and Output Intake and Output Intake and Output 12/05/21 07:00 Intake Total 1470 ml Output Total 1900 ml Balance -430 ml Intake Oral 240 ml IV Total 1230 ml Output Urine Total 1900 ml # Voids 1 Laboratory Labs Laboratory Tests Test 12/04/21 09:42 12/04/21 10:41 12/04/21 12:06 12/04/21 12:45 Glucose (Fingerstick) 87 mg/dL (70-99) 38 mg/dL (70-99) 63 mg/dL (70-99) O2 Saturation 94 % (92-99) Arterial Blood pH 7.23 (7.35-7.45) Arterial Blood pCO2 at Patient Temp 90 mmHg (35-46) Arterial Blood pO2 at Patient Temp 83 mmHg (75-108) Arterial Blood HCO3 37 mmol/L (21-28) Arterial Blood Base Excess 6 mmol/L (-3-3) FiO2 60% bipap Test 12/04/21 12:52 12/04/21 13:32 12/04/21 14:36 12/04/21 15:10 Glucose (Fingerstick) 52 mg/dL (70-99) 193 mg/dL (70-99) 84 mg/dL (70-99) Vancomycin Level Trough 16.0 mcg/mL (10.0-20.0) Vancomycin Last Dose Date 12/04/21 Vancomycin Last Dose Time 0700 Test 12/04/21 16:44 12/04/21 16:50 12/05/21 04:30 12/05/21 06:59 Glucose (Fingerstick) 85 mg/dL (70-99) 110 mg/dL (70-99) O2 Saturation 87 % (92-99) Arterial Blood pH 7.35 (7.35-7.45) Arterial Blood pCO2 at Patient Temp 71 mmHg (35-46) Arterial Blood pO2 at Patient Temp 54 mmHg (75-108) Arterial Blood HCO3 38 mmol/L (21-28) Arterial Blood Base Excess 10 mmol/L (-3-3) FiO2 40% /8 26 White Blood Count 3.5 x10^3/uL (4.0-11.0) Red Blood Count 4.05 x10^6/uL (4.30-5.70) Hemoglobin 12.7 g/dL (13.0-17.5) Hematocrit 39.1 % (39.0-53.0) Mean Corpuscular Volume 97 fL (79-100) Mean Corpuscular Hemoglobin 31 pg (25-35) Mean Corpuscular Hemoglobin Concent 33 g/dL (31-37) Red Cell Distribution Width 15.2 % (11.5-14.5) Platelet Count 137 x10^3/uL (140-400) Neutrophils (%) (Auto) 80 % (31-73) Lymphocytes (%) (Auto) 9 % (24-48) Monocytes (%) (Auto) 11 % (0-9) Eosinophils (%) (Auto) 0 % (0-3) Basophils (%) (Auto) 0 % (0-3) Neutrophils # (Auto) 2.8 x10^3/uL (1.8-7.7) Lymphocytes # (Auto) 0.3 x10^3/uL (1.0-4.8) Monocytes # (Auto) 0.4 x10^3/uL (0.0-1.1) Eosinophils # (Auto) 0.0 x10^3/uL (0.0-0.7) Basophils # (Auto) 0.0 x10^3/uL (0.0-0.2) Sodium Level 130 mmol/L (136-145) Potassium Level 5.1 mmol/L (3.5-5.1) Chloride Level 93 mmol/L (98-107) Carbon Dioxide Level 38 mmol/L (21-32) Anion Gap (6-14) Blood Urea Nitrogen 22 mg/dL (8-26) Creatinine 0.8 mg/dL (0.7-1.3) Estimated GFR (Cockcroft-Gault) 100.4 Glucose Level 99 mg/dL (70-99) Calcium Level 8.0 mg/dL (8.5-10.1) Magnesium Level 2.1 mg/dL (1.8-2.4) Test 12/05/21 07:48 Glucose (Fingerstick) 95 mg/dL (70-99) Microbiology Micro Microbiology 12/03/21 Blood Culture - Preliminary, Resulted NO GROWTH AFTER 1 DAY Physical Exam HEENT: Neck Supple W Full Motion Chest: Symmetric Heart: irregularly irregular Abdomen: Soft N/T, Other (obese) Extremities: Other (4+ bilateral LE pitting edema) Neurology: alert, oriented, follow commands Assessment Assessment 1. Acute on chronic respiratory failure, AECOPD,CHF and with possible pneumonia 2. Acute on chronic diastolic CHF 3. PAFIB with RVR 4. DM2 with hypoglycemic reaction: per PCP 5. Hypertension 6. HLP 7. BALTA 8. Sepsis Recommendations Continue Eliquis for stroke prophylaxis. Start cardizem CD and titrate up per BP and HR trend Secondary prevention measures BiPAP Lasix therapy Ongoing lung optimization, Continue antibiotic therapy Outpatient ischemic evaluation Justicifation of Admission Dx: Justifications for Admission: Justification of Admission Dx: Yes Respiratory Failure: Severe Resp Distress JENNIFFER ROTHMAN MD 12/05/21 1301: CARDIO Progress Notes Assessment Assessment Patient seen and examined. Agree with ADDICTION NURSE's assessment and plan. Acute respiratory failure secondary to combination of acute COPD exacerbation, pneumonia and acute on chronic diastolic heart failure Patient presently needing BiPAP. Pulmonary team following. Atrial fibrillation with RVR despite giving digoxin. Agree with Cardizem for rate control Continue Eliquis for stroke prophylaxis Continue diuresis for acute on chronic diastolic heart failure ULISES HOUGH APRN Dec 05, 2021 09:04 JENNIFFER ROTHMAN MD Dec 05, 2021 13:01
--- NOTE | 2021-12-05 09:20 | PDOC ---
[facility] PROGRESS NOTE Date of Service DOS: DATE: 12/05/21 TIME: 09:14 Chief Complaint Chief Complaint A/P: Sepsis Acute hypoxic/hypercapnic respiratory failure requiring BiPAP support Right lower lobe pneumonia, possible gram-negative organisms possible aspiration Hemodynamic instability, possible septic shock A. fib RVR Acute electrolyte derangementhyponatremia, likely hypervolemic Acute on chronic respiratory acidosis Lactic acidemia Elevated BNP suggestive of volume overload History of COPD History of diabetes mellitus type 2 History of tobacco misuse Refractory hypoglycemia related to sulfonylurea use Continue with hypoglycemia protocol with the addition of glucagon as needed to maintain glucose levels greater than 70 Continue empiric IV antibiotics Pulmonology consult for O2 management Cardiology consult for atrial fibrillation Pending blood and sputum cultures Pending urine Legionella antigen and MRSA screen Continue telemetry monitoring Cardiology consult R ISS and Accu-Cheks Lovenox for DVT prophylaxis Protonix GI prophylaxis ADA diet CODE STATUS assumed full code Discussed with RN and SW Disposition continue ICU care DPOA: Kailee Pelayo History of Present Illness History of Present Illness 56-year-old male with past medical history of CHF, COPD on 6 L home O2, diabetes mellitus 2 Who comes in with shortness of breath for the past several weeks. The past few days has worsened to the point where he needed to come to the ED for further evaluation. Patient is on torsemide at home for his CHF. Patient currently denies any chest pain or fevers or cough or body aches or dysuria or hematuria or abdominal pain or diarrhea. 12/04: Patient tolerating BiPAP not short of breath at this time. Transferred to ICU for persistent hypoglycemia, atrial tachycardia. Started on D5 NS and amps of dextrose as needed. Attempting to try to maintain sugars greater than 70. 1 dose of glucagon given. 12/05: Seen bedside in ICU on BiPAP. Very swollen bilateral lower extremities. Irregular on telemetry A. fib/flutter he is unable to get a deep breath. CC time 37 minutes Vitals/I&O Vitals/I&O: Vital Signs Date Time Temp Pulse Resp B/P (MAP) Pulse Ox O2 Delivery O2 Flow Rate FiO2 12/05/21 08:17 94 BiPAP/CPAP 12/05/21 08:00 60.0 12/05/21 06:00 107 22 133/76 (95) 12/05/21 04:00 98.9 98.9 I & O 112/04/21 12/05/21 15:00 23:00 07:00 Intake Total 400 ml 1070 ml Output Total 1000 ml 500 ml 400 ml Balance -600 ml 570 ml -400 ml Physical Exam General: Alert, Oriented X3, Cooperative, moderate distress Heart: Regular rate, Other (AFIB RVR, distant heart sounds) Lungs: Other Abdomen: Soft, Other (obese) Extremities: Other (3-4+ bilateral LE pitting edema) Skin: Other (tinea pedis bilaterally) Labs Labs: Laboratory Tests Test 12/04/21 09:42 12/04/21 10:41 12/04/21 12:06 12/04/21 12:45 Glucose (Fingerstick) 87 mg/dL (70-99) 38 mg/dL (70-99) 63 mg/dL (70-99) O2 Saturation 94 % (92-99) Arterial Blood pH 7.23 (7.35-7.45) Arterial Blood pCO2 at Patient Temp 90 mmHg (35-46) Arterial Blood pO2 at Patient Temp 83 mmHg (75-108) Arterial Blood HCO3 37 mmol/L (21-28) Arterial Blood Base Excess 6 mmol/L (-3-3) FiO2 60% bipap Test 12/04/21 12:52 12/04/21 13:32 12/04/21 14:36 12/04/21 15:10 Glucose (Fingerstick) 52 mg/dL (70-99) 193 mg/dL (70-99) 84 mg/dL (70-99) Vancomycin Level Trough 16.0 mcg/mL (10.0-20.0) Vancomycin Last Dose Date 12/04/21 Vancomycin Last Dose Time 0700 Test 12/04/21 16:44 12/04/21 16:50 12/05/21 04:30 12/05/21 06:59 Glucose (Fingerstick) 85 mg/dL (70-99) 110 mg/dL (70-99) O2 Saturation 87 % (92-99) Arterial Blood pH 7.35 (7.35-7.45) Arterial Blood pCO2 at Patient Temp 71 mmHg (35-46) Arterial Blood pO2 at Patient Temp 54 mmHg (75-108) Arterial Blood HCO3 38 mmol/L (21-28) Arterial Blood Base Excess 10 mmol/L (-3-3) FiO2 40% 24/07 White Blood Count 3.5 x10^3/uL (4.0-11.0) Red Blood Count 4.05 x10^6/uL (4.30-5.70) Hemoglobin 12.7 g/dL (13.0-17.5) Hematocrit 39.1 % (39.0-53.0) Mean Corpuscular Volume 97 fL (79-100) Mean Corpuscular Hemoglobin 31 pg (25-35) Mean Corpuscular Hemoglobin Concent 33 g/dL (31-37) Red Cell Distribution Width 15.2 % (11.5-14.5) Platelet Count 137 x10^3/uL (140-400) Neutrophils (%) (Auto) 80 % (31-73) Lymphocytes (%) (Auto) 9 % (24-48) Monocytes (%) (Auto) 11 % (0-9) Eosinophils (%) (Auto) 0 % (0-3) Basophils (%) (Auto) 0 % (0-3) Neutrophils # (Auto) 2.8 x10^3/uL (1.8-7.7) Lymphocytes # (Auto) 0.3 x10^3/uL (1.0-4.8) Monocytes # (Auto) 0.4 x10^3/uL (0.0-1.1) Eosinophils # (Auto) 0.0 x10^3/uL (0.0-0.7) Basophils # (Auto) 0.0 x10^3/uL (0.0-0.2) Sodium Level 130 mmol/L (136-145) Potassium Level 5.1 mmol/L (3.5-5.1) Chloride Level 93 mmol/L (98-107) Carbon Dioxide Level 38 mmol/L (21-32) Anion Gap (6-14) Blood Urea Nitrogen 22 mg/dL (8-26) Creatinine 0.8 mg/dL (0.7-1.3) Estimated GFR (Cockcroft-Gault) 100.4 Glucose Level 99 mg/dL (70-99) Calcium Level 8.0 mg/dL (8.5-10.1) Magnesium Level 2.1 mg/dL (1.8-2.4) Test 12/05/21 07:48 Glucose (Fingerstick) 95 mg/dL (70-99) Assessment and Plan Assessmemt and Plan Problems Medical Problems: (1) Atrial fibrillation with RVR Status: Acute (2) CHF exacerbation Status: Acute (3) COPD exacerbation Status: Acute (4) Pneumonia Status: Acute Comment Review of Relevant I have reviewed the following items wade (where applicable) has been applied. Medications: Current Medications Medications (Trade) Dose Ordered Sig/Theresa Route PRN Reason Start Time Stop Time Status Last Admin Dose Admin Vancomycin HCl (Vancomycin Trough Level) 1 each 1X ONCE MC 12/04/21 14:30 12/04/21 14:31 DC 12/04/21 14:30 Apixaban (Eliquis) 5 mg BID PO 12/04/21 21:00 12/04/21 20:55 Furosemide (Lasix) 40 mg 1X ONCE IVP 12/04/21 11:00 12/04/21 11:04 DC 12/04/21 11:18 Diltiazem HCl (Cardizem Iv Push) 10 mg 1X ONCE IVP 12/04/21 11:30 12/04/21 11:31 DC 12/04/21 11:42 Diltiazem HCl 125 mg/Sodium Chloride 125 ml @ 5 mls/hr 1X ONCE IV 12/04/21 11:30 12/05/21 12:29 12/04/21 11:30 Methylprednisolone Sodium Succinate (SOLU-Medrol 125MG VIAL) 125 mg 1X ONCE IV 12/04/21 11:45 12/04/21 11:46 DC 12/04/21 11:47 Glucagon (Glucagen) 1 mg 1X ONCE IV 12/04/21 12:45 12/04/21 12:46 DC 12/04/21 13:08 Lactobacillus Rhamnosus (Culturelle) 1 cap BID PO 12/04/21 21:00 12/04/21 20:55 Albuterol/ Ipratropium (Duoneb) 3 ml RTQID NEB 12/04/21 16:00 12/05/21 08:17 Justifications for Admission Other Justification Acute hypoxemic respiratory failure ABY GUERIN MD Dec 05, 2021 09:20
[2021-12-05] MEDS: APIXABAN 5 MG TABLET. PO SCH ×2 (09:26→21:03)
[2021-12-05] MEDS: LACTOBACILLUS RHAMNOSUS GG 1 CAPSULE. PO SCH ×2 (09:26→21:03)
[2021-12-05] MEDS: FUROSEMIDE 100 MG/10 ML VIAL. IVP SCH ×2 (09:29→13:36)
[2021-12-05 09:31] LABS: FIO2 ABG 45/bipap; PCO2 ABG 63 mmHg (35-46)
[2021-12-05] MEDS: DOXYCYCLINE HYCLATE 100 MG in IV DEXTROSE 5% 100ML 100 ML IV SCH ×2 (09:31→21:03)
--- NOTE | 2021-12-05 10:23 | PDOC ---
PULMONARY PROGRESS NOTES DATE: 12/05/21 TIME: 10:20 Subjective Patient transferred to the ICU yesterday afternoon due to worsening hypercapnia. I have made changes on the BiPAP. Patient remained on BiPAP all night. He is awake and following commands. Vitals Vital Signs Date Time Temp Pulse Resp B/P (MAP) Pulse Ox O2 Delivery O2 Flow Rate FiO2 12/05/21 08:17 94 BiPAP/CPAP 12/05/21 08:00 60.0 12/05/21 06:00 107 22 133/76 (95) 12/05/21 04:00 98.9 98.9 General: Alert, No acute distress Lungs: Other (Decreased breath sounds bilaterally) Cardiovascular: S1, S2 Abdomen: Soft, Non-tender Neuro Exam: Alert Extremities: Other (3+ pitting edema) Skin: Warm Labs Laboratory Tests Test 12/03/21 11:58 12/03/21 12:00 12/03/21 12:10 12/03/21 12:35 Influenza Type A Antigen Negative (NEGATIVE) Influenza Type B Antigen Negative (NEGATIVE) SARS-CoV-2 RNA (MONIQUE) Negative (Negative) SARS-CoV-2 Antigen (Rapid) Negative (NEGATIVE) White Blood Count 7.4 x10^3/uL (4.0-11.0) Red Blood Count 4.88 x10^6/uL (4.30-5.70) Hemoglobin 15.6 g/dL (13.0-17.5) Hematocrit 47.0 % (39.0-53.0) Mean Corpuscular Volume 96 fL (79-100) Mean Corpuscular Hemoglobin 32 pg (25-35) Mean Corpuscular Hemoglobin Concent 33 g/dL (31-37) Red Cell Distribution Width 15.5 % (11.5-14.5) Platelet Count 218 x10^3/uL (140-400) Neutrophils (%) (Auto) 79 % (31-73) Lymphocytes (%) (Auto) 6 % (24-48) Monocytes (%) (Auto) 14 % (0-9) Eosinophils (%) (Auto) 0 % (0-3) Basophils (%) (Auto) 1 % (0-3) Neutrophils # (Auto) 5.8 x10^3/uL (1.8-7.7) Lymphocytes # (Auto) 0.5 x10^3/uL (1.0-4.8) Monocytes # (Auto) 1.0 x10^3/uL (0.0-1.1) Eosinophils # (Auto) 0.0 x10^3/uL (0.0-0.7) Basophils # (Auto) 0.1 x10^3/uL (0.0-0.2) Segmented Neutrophils % 78 % (35-66) Band Neutrophils % 3 % (0-9) Lymphocytes % 8 % (24-48) Atypical Lymphocytes % (Manual) 1 % (0-0) Monocytes % 10 % (0-10) Platelet Estimate Adequate (ADEQUATE) Sodium Level 131 mmol/L (136-145) Potassium Level 4.8 mmol/L (3.5-5.1) Chloride Level 90 mmol/L (98-107) Carbon Dioxide Level 43 mmol/L (21-32) Anion Gap (6-14) Blood Urea Nitrogen 16 mg/dL (8-26) Creatinine 1.0 mg/dL (0.7-1.3) Estimated GFR (Cockcroft-Gault) 77.6 BUN/Creatinine Ratio 16 (6-20) Glucose Level 113 mg/dL (70-99) Calcium Level 8.9 mg/dL (8.5-10.1) Magnesium Level 2.3 mg/dL (1.8-2.4) Total Bilirubin 1.7 mg/dL (0.2-1.0) Aspartate Amino Transf (AST/SGOT) 16 U/L (15-37) Alanine Aminotransferase (ALT/SGPT) 11 U/L (16-63) Alkaline Phosphatase 78 U/L (46-116) Troponin I High Sensitivity 16 ng/L (4-75) NH-Upt-A-Type Natriuretic Peptide 4035 pg/mL (0-124) Total Protein 7.9 g/dL (6.4-8.2) Albumin 3.4 g/dL (3.4-5.0) Albumin/Globulin Ratio 0.8 (1.0-1.7) Procalcitonin < 0.10 ng/mL (0.00-0.10) Lactic Acid Level 2.5 mmol/L (0.4-2.0) O2 Saturation 89 % (92-99) Arterial Blood pH 7.33 (7.35-7.45) Arterial Blood pCO2 at Patient Temp 68 mmHg (35-46) Arterial Blood pO2 at Patient Temp 62 mmHg (75-108) Arterial Blood HCO3 35 mmol/L (21-28) Arterial Blood Base Excess 7 mmol/L (-3-3) FiO2 60 Test 12/03/21 19:20 12/03/21 21:05 12/03/21 21:12 12/03/21 21:21 Lactic Acid Level 0.8 mmol/L (0.4-2.0) Glucose (Fingerstick) 27 mg/dL (70-99) 23 mg/dL (70-99) 100 mg/dL (70-99) Test 12/03/21 23:04 12/04/21 01:54 12/04/21 02:30 12/04/21 03:05 Glucose (Fingerstick) 87 mg/dL (70-99) 64 mg/dL (70-99) 59 mg/dL (70-99) 54 mg/dL (70-99) Test 12/04/21 03:19 12/04/21 03:41 12/04/21 04:06 12/04/21 04:28 Glucose (Fingerstick) 93 mg/dL (70-99) 56 mg/dL (70-99) 97 mg/dL (70-99) 69 mg/dL (70-99) Test 12/04/21 04:30 12/04/21 05:13 12/04/21 05:38 12/04/21 05:56 White Blood Count 4.8 x10^3/uL (4.0-11.0) Red Blood Count 4.40 x10^6/uL (4.30-5.70) Hemoglobin 14.0 g/dL (13.0-17.5) Hematocrit 42.7 % (39.0-53.0) Mean Corpuscular Volume 97 fL (79-100) Mean Corpuscular Hemoglobin 32 pg (25-35) Mean Corpuscular Hemoglobin Concent 33 g/dL (31-37) Red Cell Distribution Width 15.6 % (11.5-14.5) Platelet Count 162 x10^3/uL (140-400) Neutrophils (%) (Auto) 68 % (31-73) Lymphocytes (%) (Auto) 11 % (24-48) Monocytes (%) (Auto) 21 % (0-9) Eosinophils (%) (Auto) 0 % (0-3) Basophils (%) (Auto) 1 % (0-3) Neutrophils # (Auto) 3.3 x10^3/uL (1.8-7.7) Lymphocytes # (Auto) 0.5 x10^3/uL (1.0-4.8) Monocytes # (Auto) 1.0 x10^3/uL (0.0-1.1) Eosinophils # (Auto) 0.0 x10^3/uL (0.0-0.7) Basophils # (Auto) 0.0 x10^3/uL (0.0-0.2) Sodium Level 133 mmol/L (136-145) Potassium Level 4.3 mmol/L (3.5-5.1) Chloride Level 92 mmol/L (98-107) Carbon Dioxide Level 41 mmol/L (21-32) Anion Gap 0 (6-14) Blood Urea Nitrogen 18 mg/dL (8-26) Creatinine 0.9 mg/dL (0.7-1.3) Estimated GFR (Cockcroft-Gault) 87.6 Glucose Level 59 mg/dL (70-99) Calcium Level 8.3 mg/dL (8.5-10.1) Phosphorus Level 5.9 mg/dL (2.6-4.7) Magnesium Level 2.3 mg/dL (1.8-2.4) Glucose (Fingerstick) 82 mg/dL (70-99) 48 mg/dL (70-99) 82 mg/dL (70-99) Test 12/04/21 06:31 12/04/21 06:59 12/04/21 07:11 12/04/21 08:25 Glucose (Fingerstick) 47 mg/dL (70-99) 76 mg/dL (70-99) 73 mg/dL (70-99) 93 mg/dL (70-99) Test 12/04/21 09:42 12/04/21 10:41 12/04/21 12:06 12/04/21 12:45 Glucose (Fingerstick) 87 mg/dL (70-99) 38 mg/dL (70-99) 63 mg/dL (70-99) O2 Saturation 94 % (92-99) Arterial Blood pH 7.23 (7.35-7.45) Arterial Blood pCO2 at Patient Temp 90 mmHg (35-46) Arterial Blood pO2 at Patient Temp 83 mmHg (75-108) Arterial Blood HCO3 37 mmol/L (21-28) Arterial Blood Base Excess 6 mmol/L (-3-3) FiO2 60% bipap Test 12/04/21 12:52 12/04/21 13:32 12/04/21 14:36 12/04/21 15:10 Glucose (Fingerstick) 52 mg/dL (70-99) 193 mg/dL (70-99) 84 mg/dL (70-99) Vancomycin Level Trough 16.0 mcg/mL (10.0-20.0) Vancomycin Last Dose Date 12/04/21 Vancomycin Last Dose Time 0700 Test 12/04/21 16:44 12/04/21 16:50 12/05/21 04:30 12/05/21 06:59 Glucose (Fingerstick) 85 mg/dL (70-99) 110 mg/dL (70-99) O2 Saturation 87 % (92-99) Arterial Blood pH 7.35 (7.35-7.45) Arterial Blood pCO2 at Patient Temp 71 mmHg (35-46) Arterial Blood pO2 at Patient Temp 54 mmHg (75-108) Arterial Blood HCO3 38 mmol/L (21-28) Arterial Blood Base Excess 10 mmol/L (-3-3) FiO2 40% /8 26 White Blood Count 3.5 x10^3/uL (4.0-11.0) Red Blood Count 4.05 x10^6/uL (4.30-5.70) Hemoglobin 12.7 g/dL (13.0-17.5) Hematocrit 39.1 % (39.0-53.0) Mean Corpuscular Volume 97 fL (79-100) Mean Corpuscular Hemoglobin 31 pg (25-35) Mean Corpuscular Hemoglobin Concent 33 g/dL (31-37) Red Cell Distribution Width 15.2 % (11.5-14.5) Platelet Count 137 x10^3/uL (140-400) Neutrophils (%) (Auto) 80 % (31-73) Lymphocytes (%) (Auto) 9 % (24-48) Monocytes (%) (Auto) 11 % (0-9) Eosinophils (%) (Auto) 0 % (0-3) Basophils (%) (Auto) 0 % (0-3) Neutrophils # (Auto) 2.8 x10^3/uL (1.8-7.7) Lymphocytes # (Auto) 0.3 x10^3/uL (1.0-4.8) Monocytes # (Auto) 0.4 x10^3/uL (0.0-1.1) Eosinophils # (Auto) 0.0 x10^3/uL (0.0-0.7) Basophils # (Auto) 0.0 x10^3/uL (0.0-0.2) Sodium Level 130 mmol/L (136-145) Potassium Level 5.1 mmol/L (3.5-5.1) Chloride Level 93 mmol/L (98-107) Carbon Dioxide Level 38 mmol/L (21-32) Anion Gap (6-14) Blood Urea Nitrogen 22 mg/dL (8-26) Creatinine 0.8 mg/dL (0.7-1.3) Estimated GFR (Cockcroft-Gault) 100.4 Glucose Level 99 mg/dL (70-99) Calcium Level 8.0 mg/dL (8.5-10.1) Magnesium Level 2.1 mg/dL (1.8-2.4) Test 12/05/21 07:48 12/05/21 08:00 Glucose (Fingerstick) 95 mg/dL (70-99) O2 Saturation 96 % (92-99) Arterial Blood pH 7.41 (7.35-7.45) Arterial Blood pCO2 at Patient Temp 63 mmHg (35-46) Arterial Blood pO2 at Patient Temp 86 mmHg (75-108) Arterial Blood HCO3 39 mmol/L (21-28) Arterial Blood Base Excess 12 mmol/L (-3-3) FiO2 45/bipap Laboratory Tests Test 12/04/21 10:41 12/04/21 12:06 12/04/21 12:45 12/04/21 12:52 Glucose (Fingerstick) 38 mg/dL (70-99) 63 mg/dL (70-99) 52 mg/dL (70-99) O2 Saturation 94 % (92-99) Arterial Blood pH 7.23 (7.35-7.45) Arterial Blood pCO2 at Patient Temp 90 mmHg (35-46) Arterial Blood pO2 at Patient Temp 83 mmHg (75-108) Arterial Blood HCO3 37 mmol/L (21-28) Arterial Blood Base Excess 6 mmol/L (-3-3) FiO2 60% bipap Test 12/04/21 13:32 12/04/21 14:36 12/04/21 15:10 12/04/21 16:44 Glucose (Fingerstick) 193 mg/dL (70-99) 84 mg/dL (70-99) 85 mg/dL (70-99) Vancomycin Level Trough 16.0 mcg/mL (10.0-20.0) Vancomycin Last Dose Date 12/04/21 Vancomycin Last Dose Time 0700 Test 12/04/21 16:50 12/05/21 04:30 12/05/21 06:59 12/05/21 07:48 O2 Saturation 87 % (92-99) Arterial Blood pH 7.35 (7.35-7.45) Arterial Blood pCO2 at Patient Temp 71 mmHg (35-46) Arterial Blood pO2 at Patient Temp 54 mmHg (75-108) Arterial Blood HCO3 38 mmol/L (21-28) Arterial Blood Base Excess 10 mmol/L (-3-3) FiO2 40% 26/8 26 White Blood Count 3.5 x10^3/uL (4.0-11.0) Red Blood Count 4.05 x10^6/uL (4.30-5.70) Hemoglobin 12.7 g/dL (13.0-17.5) Hematocrit 39.1 % (39.0-53.0) Mean Corpuscular Volume 97 fL (79-100) Mean Corpuscular Hemoglobin 31 pg (25-35) Mean Corpuscular Hemoglobin Concent 33 g/dL (31-37) Red Cell Distribution Width 15.2 % (11.5-14.5) Platelet Count 137 x10^3/uL (140-400) Neutrophils (%) (Auto) 80 % (31-73) Lymphocytes (%) (Auto) 9 % (24-48) Monocytes (%) (Auto) 11 % (0-9) Eosinophils (%) (Auto) 0 % (0-3) Basophils (%) (Auto) 0 % (0-3) Neutrophils # (Auto) 2.8 x10^3/uL (1.8-7.7) Lymphocytes # (Auto) 0.3 x10^3/uL (1.0-4.8) Monocytes # (Auto) 0.4 x10^3/uL (0.0-1.1) Eosinophils # (Auto) 0.0 x10^3/uL (0.0-0.7) Basophils # (Auto) 0.0 x10^3/uL (0.0-0.2) Sodium Level 130 mmol/L (136-145) Potassium Level 5.1 mmol/L (3.5-5.1) Chloride Level 93 mmol/L (98-107) Carbon Dioxide Level 38 mmol/L (21-32) Anion Gap (6-14) Blood Urea Nitrogen 22 mg/dL (8-26) Creatinine 0.8 mg/dL (0.7-1.3) Estimated GFR (Cockcroft-Gault) 100.4 Glucose Level 99 mg/dL (70-99) Calcium Level 8.0 mg/dL (8.5-10.1) Magnesium Level 2.1 mg/dL (1.8-2.4) Glucose (Fingerstick) 110 mg/dL (70-99) 95 mg/dL (70-99) Test 12/05/21 08:00 O2 Saturation 96 % (92-99) Arterial Blood pH 7.41 (7.35-7.45) Arterial Blood pCO2 at Patient Temp 63 mmHg (35-46) Arterial Blood pO2 at Patient Temp 86 mmHg (75-108) Arterial Blood HCO3 39 mmol/L (21-28) Arterial Blood Base Excess 12 mmol/L (-3-3) FiO2 45/bipap Medications Active Scripts Medications Dose Route/Sig Max Daily Dose Days Date Category Furosemide 40 Mg Tablet 3 Tab PO DAILY 12/03/21 Reported Prednisone 20 Mg Tablet 1 Tab PO DAILY 5 09/30/21 Rx Eliquis (Apixaban) 5 Mg Tablet 5 Mg PO BID 30 09/30/21 Rx Diltiazem 24Hr Cd (Diltiazem HCl) 240 Mg Cap.er.24h 240 Mg PO DAILY 30 09/30/21 Rx Advair 500-50 Diskus (Fluticasone/Salmeterol) 1 Each Disk.w.dev 1 Puff INH BID 09/24/21 Reported Albuterol Sulfate Neb Soln (Albuterol Sulfate) 2.5 Mg/3 Ml Vial.neb 2.5 Mg NEB PRN Q4-6HRS PRN 06/12/21 Reported Glyxambi 25 mg-5 mg Tablet (Empagliflozin/Linagliptin) 1 Each Tablet 1 Each PO DAILY 01/03/21 Reported [Albuterol Sulfate] 2.5 MG/3 ML Nebu 2.5 Mg NEB PRN Q2HR PRN 09/26/14 Rx Metformin Hcl Er (Metformin Hcl) 500 Mg Tab.er.24 500 Mg PO BID 11/26/13 Reported Lisinopril 5 Mg Tablet 10 Mg PO DAILY 11/26/13 Reported Glimepiride 4 Mg Tablet 4 Mg PO BID 11/26/13 Reported Spiriva (Tiotropium [place]) 18 Mcg Cap.w.dev 18 Mcg IH DAILY 11/26/13 Reported Impression . 1. Acute on chronic hypoxic and hypercapnic respiratory failure secondary to multifactorial etiologies including a combination of acute on chronic right heart failure, AECOPD and Afib with RVR 2. Hypoglycemia may have also contributed to his encephalopathy initially. Resolved now 3. The patient with underlying severe chronic obstructive pulmonary disease and now comes in with worsening respiratory failure. Acute on chronic obstructive pulmonary disease exacerbation is another trigger. 4. The patient with obesity hypoventilation syndrome and chronic cor pulmonale. On home oxygen at 6 liters and BiPAP at nighttime. 5. Clinically less likely sepsis or infection. 6. Atrial fibrillation with rapid ventricular response, also contributing to heart failure. 7. Fully vaccinated for COVID. An influenza screen and COVID is negative. 8. Abnormal chest x-ray consistent with congestive heart failure. Plan . RECOMMENDATIONS: 1. Patient's hypercapnia is now fully compensated. It is much improved. He has been on BiPAP since all day yesterday and last night. We will try Venturi mask during the day if tolerates. Continue BiPAP at nighttime and as needed during the day. 2. Continue with Lasix. 3. Monitor renal function. 4. Antibiotics can be deescalated soon. 5. Follow up chest x-ray as needed. 6. Lovenox for DVT prophylaxis. 7. Echocardiogram and Cardiology recommendation. 8. Continue Eliquis. 9. Discussed with RN/ RT. discussed with Dr. Grajeda Total critical care time 35 minutes. IRAIS HICKS MD Dec 05, 2021 10:23
[2021-12-05] MEDS: VANCOMYCIN PER PHARMACY MC PRN (10:54)
--- NOTE | 2021-12-05 14:43 | NUR ---
SS following up with discharge planning. SS reviewed pt chart and discussed with pt RN. Pt is currently on BIPAP at 40%. COVID19 negative. Pt has home oxygen and home BIPAP machine. Per family, pt is vaccinated for COVID19. Pt on IV Vancomycin, IV Cefepime, IV Doxycycline, and IV Lasix. SS will continue to follow for discharge planning
[2021-12-05] MEDS ORDERED: VANCOMYCIN 1 GM in IV NORMAL SALINE 250ML 250 ML IV SCH (15:00)
[2021-12-06] VITALS (23 sets, daily range): BP systolic 81–147; BP diastolic 61–85
[2021-12-06] MEDS: IV DEXTROSE 5% - 0.9 % NACL 1,000 ML IV SCH (05:25)
[2021-12-06] MEDS: CEFEPIME HCL IV Push 1 GM VIAL. IVP SCH (05:29)
--- NOTE | 2021-12-06 05:57 | PDOC ---
PULMONARY PROGRESS NOTES DATE: 12/06/21 TIME: 05:56 Subjective on bipap 20 40% desat easily Patient transferred to the ICU 12/04 afternoon due to worsening hypercapnia. Vitals Vital Signs Date Time Temp Pulse Resp B/P (MAP) Pulse Ox O2 Delivery O2 Flow Rate FiO2 12/06/21 05:00 110 28 111/61 98 BiPAP/CPAP 12/06/21 04:00 97.8 97.8 12/05/21 18:00 7.0 General: Alert, No acute distress HEENT: Other (nc at perrl bipap mask on ) Lungs: Other (Decreased breath sounds bilaterally) Cardiovascular: S1, S2 Abdomen: Soft, Non-tender Neuro Exam: Alert Extremities: Other (3+ pitting edema) Skin: Warm Labs Laboratory Tests Test 12/04/21 06:31 12/04/21 06:59 12/04/21 07:11 12/04/21 08:25 Glucose (Fingerstick) 47 mg/dL (70-99) 76 mg/dL (70-99) 73 mg/dL (70-99) 93 mg/dL (70-99) Test 12/04/21 09:42 12/04/21 10:41 12/04/21 12:06 12/04/21 12:45 Glucose (Fingerstick) 87 mg/dL (70-99) 38 mg/dL (70-99) 63 mg/dL (70-99) O2 Saturation 94 % (92-99) Arterial Blood pH 7.23 (7.35-7.45) Arterial Blood pCO2 at Patient Temp 90 mmHg (35-46) Arterial Blood pO2 at Patient Temp 83 mmHg (75-108) Arterial Blood HCO3 37 mmol/L (21-28) Arterial Blood Base Excess 6 mmol/L (-3-3) FiO2 60% bipap Test 12/04/21 12:52 12/04/21 13:32 12/04/21 14:36 12/04/21 15:10 Glucose (Fingerstick) 52 mg/dL (70-99) 193 mg/dL (70-99) 84 mg/dL (70-99) Vancomycin Level Trough 16.0 mcg/mL (10.0-20.0) Vancomycin Last Dose Date 12/04/21 Vancomycin Last Dose Time 0700 Test 12/04/21 16:44 12/04/21 16:50 12/05/21 04:30 12/05/21 06:59 Glucose (Fingerstick) 85 mg/dL (70-99) 110 mg/dL (70-99) O2 Saturation 87 % (92-99) Arterial Blood pH 7.35 (7.35-7.45) Arterial Blood pCO2 at Patient Temp 71 mmHg (35-46) Arterial Blood pO2 at Patient Temp 54 mmHg (75-108) Arterial Blood HCO3 38 mmol/L (21-28) Arterial Blood Base Excess 10 mmol/L (-3-3) FiO2 40% 24/07 White Blood Count 3.5 x10^3/uL (4.0-11.0) Red Blood Count 4.05 x10^6/uL (4.30-5.70) Hemoglobin 12.7 g/dL (13.0-17.5) Hematocrit 39.1 % (39.0-53.0) Mean Corpuscular Volume 97 fL (79-100) Mean Corpuscular Hemoglobin 31 pg (25-35) Mean Corpuscular Hemoglobin Concent 33 g/dL (31-37) Red Cell Distribution Width 15.2 % (11.5-14.5) Platelet Count 137 x10^3/uL (140-400) Neutrophils (%) (Auto) 80 % (31-73) Lymphocytes (%) (Auto) 9 % (24-48) Monocytes (%) (Auto) 11 % (0-9) Eosinophils (%) (Auto) 0 % (0-3) Basophils (%) (Auto) 0 % (0-3) Neutrophils # (Auto) 2.8 x10^3/uL (1.8-7.7) Lymphocytes # (Auto) 0.3 x10^3/uL (1.0-4.8) Monocytes # (Auto) 0.4 x10^3/uL (0.0-1.1) Eosinophils # (Auto) 0.0 x10^3/uL (0.0-0.7) Basophils # (Auto) 0.0 x10^3/uL (0.0-0.2) Sodium Level 130 mmol/L (136-145) Potassium Level 5.1 mmol/L (3.5-5.1) Chloride Level 93 mmol/L (98-107) Carbon Dioxide Level 38 mmol/L (21-32) Anion Gap (6-14) Blood Urea Nitrogen 22 mg/dL (8-26) Creatinine 0.8 mg/dL (0.7-1.3) Estimated GFR (Cockcroft-Gault) 100.4 Glucose Level 99 mg/dL (70-99) Calcium Level 8.0 mg/dL (8.5-10.1) Magnesium Level 2.1 mg/dL (1.8-2.4) Test 12/05/21 07:48 12/05/21 08:00 12/05/21 11:52 12/05/21 17:18 Glucose (Fingerstick) 95 mg/dL (70-99) 131 mg/dL (70-99) 109 mg/dL (70-99) O2 Saturation 96 % (92-99) Arterial Blood pH 7.41 (7.35-7.45) Arterial Blood pCO2 at Patient Temp 63 mmHg (35-46) Arterial Blood pO2 at Patient Temp 86 mmHg (75-108) Arterial Blood HCO3 39 mmol/L (21-28) Arterial Blood Base Excess 12 mmol/L (-3-3) FiO2 45/bipap Test 12/05/21 21:05 Glucose (Fingerstick) 151 mg/dL (70-99) Laboratory Tests Test 12/05/21 06:59 12/05/21 07:48 12/05/21 08:00 12/05/21 11:52 Glucose (Fingerstick) 110 mg/dL (70-99) 95 mg/dL (70-99) 131 mg/dL (70-99) O2 Saturation 96 % (92-99) Arterial Blood pH 7.41 (7.35-7.45) Arterial Blood pCO2 at Patient Temp 63 mmHg (35-46) Arterial Blood pO2 at Patient Temp 86 mmHg (75-108) Arterial Blood HCO3 39 mmol/L (21-28) Arterial Blood Base Excess 12 mmol/L (-3-3) FiO2 45/bipap Test 12/05/21 17:18 12/05/21 21:05 Glucose (Fingerstick) 109 mg/dL (70-99) 151 mg/dL (70-99) Medications Active Scripts Medications Dose Route/Sig Max Daily Dose Days Date Category Furosemide 40 Mg Tablet 3 Tab PO DAILY 12/03/21 Reported Prednisone 20 Mg Tablet 1 Tab PO DAILY 5 09/30/21 Rx Eliquis (Apixaban) 5 Mg Tablet 5 Mg PO BID 30 09/30/21 Rx Diltiazem 24Hr Cd (Diltiazem HCl) 240 Mg Cap.er.24h 240 Mg PO DAILY 30 09/30/21 Rx Advair 500-50 Diskus (Fluticasone/Salmeterol) 1 Each Disk.w.dev 1 Puff INH BID 09/24/21 Reported Albuterol Sulfate Neb Soln (Albuterol Sulfate) 2.5 Mg/3 Ml Vial.neb 2.5 Mg NEB PRN Q4-6HRS PRN 06/12/21 Reported Glyxambi 25 mg-5 mg Tablet (Empagliflozin/Linagliptin) 1 Each Tablet 1 Each PO DAILY 01/03/21 Reported [Albuterol Sulfate] 2.5 MG/3 ML Nebu 2.5 Mg NEB PRN Q2HR PRN 09/26/14 Rx Metformin Hcl Er (Metformin Hcl) 500 Mg Tab.er.24 500 Mg PO BID 11/26/13 Reported Lisinopril 5 Mg Tablet 10 Mg PO DAILY 11/26/13 Reported Glimepiride 4 Mg Tablet 4 Mg PO BID 11/26/13 Reported Spiriva (Tiotropium Im[place]) 18 Mcg Cap.w.dev 18 Mcg IH DAILY 11/26/13 Reported Impression . 1. Acute on chronic hypoxic and hypercapnic respiratory failure secondary to multifactorial etiologies including a combination of acute on chronic right heart failure, AECOPD and Afib with RVR 2. Hypoglycemia may have also contributed to his encephalopathy initially. Resolved now 3. The patient with underlying severe chronic obstructive pulmonary disease and now comes in with worsening respiratory failure. Acute on chronic obstructive pulmonary disease exacerbation is another trigger. 4. The patient with obesity hypoventilation syndrome and chronic cor pulmonale. On home oxygen at 6 liters and BiPAP at nighttime. 5. Clinically less likely sepsis or infection. 6. Atrial fibrillation with rapid ventricular response, also contributing to heart failure. 7. Fully vaccinated for COVID. An influenza screen and COVID is negative. 8. Abnormal chest x-ray consistent with congestive heart failure. Plan . RECOMMENDATIONS: 1. desat off bipap cont bipap until resp status more stable Continue BiPAP qhs and as needed during the day. 2. Continue with Lasix. 3. Monitor renal function. 4. Antibiotics can be deescalated soon. 5. Follow up chest x-ray as needed. 6. Lovenox for DVT prophylaxis. 7. Echocardiogram and Cardiology recommendation. 8. Continue Eliquis. 9. Discussed with RN/ RT. GIBSON LYMAN MD Dec 06, 2021 05:57
[2021-12-06 06:18] LABS: BASO % 1 % (0-3); EOS % 1 % (0-3); HEMATOCRIT 41.6 % (39.0-53.0); HEMOGLOBIN 13.3 g/dL (13.0-17.5); LYMPH # 0.9 x10^3/uL (1.0-4.8); LYMPH % 21 % (24-48); MEAN CORPUSCULAR HEMOGLOBIN 31 pg (25-35); MEAN CORPUSCULAR HGB CONC 32 g/dL (31-37); MEAN CORPUSCULAR VOLUME 96 fL (79-100); MONO # 0.7 x10^3/uL (0.0-1.1); MONO % 16 % (0-9); NEUT # 2.6 x10^3/uL (1.8-7.7); NEUT % 62 % (31-73); PLATELET COUNT 145 x10^3/uL (140-400); RED BLOOD COUNT 4.32 x10^6/uL (4.30-5.70); RED CELL DISTRIBUTION WIDTH 15.4 % (11.5-14.5); WHITE BLOOD COUNT 4.2 x10^3/uL (4.0-11.0)
[2021-12-06] MEDS: VANCOMYCIN 1 GM in IV NORMAL SALINE 250ML 250 ML IV SCH (06:26)
[2021-12-06 06:52] LABS: BLOOD UREA NITROGEN 21 mg/dL (8-26); CALCIUM 8.3 mg/dL (8.5-10.1); CARBON DIOXIDE 43 mmol/L (21-32); CHLORIDE 93 mmol/L (98-107); CREATININE 0.9 mg/dL (0.7-1.3); GFR 87.6; GLUCOSE 116 mg/dL (70-99); POTASSIUM 4.2 mmol/L (3.5-5.1); SODIUM 134 mmol/L (136-145)
--- NOTE | 2021-12-06 07:20 | PDOC ---
[facility] PROGRESS NOTE Date of Service DOS: DATE: 12/06/21 TIME: 07:19 Chief Complaint Chief Complaint A/P: Sepsis Acute hypoxic/hypercapnic respiratory failure requiring BiPAP support Right lower lobe pneumonia, possible gram-negative organisms possible aspiration Hemodynamic instability, possible septic shock A. fib RVR Acute electrolyte derangementhyponatremia, likely hypervolemic Acute on chronic respiratory acidosis Lactic acidemia Elevated BNP suggestive of volume overload History of COPD History of diabetes mellitus type 2 History of tobacco misuse Refractory hypoglycemia related to sulfonylurea use - can stop d5 today Continue with hypoglycemia protocol with the addition of glucagon as needed to maintain glucose levels greater than 70 Continue empiric IV antibiotics Pulmonology consult for O2 management Cardiology consult for atrial fibrillation Pending blood and sputum cultures Pending urine Legionella antigen and MRSA screen Continue telemetry monitoring Cardiology consult R ISS and Accu-Cheks Lovenox for DVT prophylaxis Protonix GI prophylaxis ADA diet CODE STATUS assumed full code Discussed with RN and SW Disposition continue ICU care DPOA: Kailee Pelayo History of Present Illness History of Present Illness 56-year-old male with past medical history of CHF, COPD on 6 L home O2, diabetes mellitus 2 Who comes in with shortness of breath for the past several weeks. The past few days has worsened to the point where he needed to come to the ED for further evaluation. Patient is on torsemide at home for his CHF. Patient currently denies any chest pain or fevers or cough or body aches or dysuria or hematuria or abdominal pain or diarrhea. 12/04: Patient tolerating BiPAP not short of breath at this time. Transferred to ICU for persistent hypoglycemia, atrial tachycardia. Started on D5 NS and amps of dextrose as needed. Attempting to try to maintain sugars greater than 70. 1 dose of glucagon given. 12/05: Seen bedside in ICU on BiPAP. Very swollen bilateral lower extremities. Irregular on telemetry A. fib/flutter he is unable to get a deep breath. CC time 37 minutes 12/06: Seen in ICU on BiPAP. 9L Urine output last 24 hours. Remains in atrial arrhythmia. Glucose climbing. We will stop D5. CC time 31 min Vitals/I&O Vitals/I&O: Vital Signs Date Time Temp Pulse Resp B/P (MAP) Pulse Ox O2 Delivery O2 Flow Rate FiO2 12/06/21 06:00 101 18 113/72 99 BiPAP/CPAP 12/06/21 04:00 97.8 97.8 12/05/21 18:00 7.0 I & O 12/05/21 12/05/21 12/06/21 15:00 23:00 07:00 Intake Total 670 ml 2234.2 ml 2592 ml Output Total 3300 ml 4750 ml 1100 ml Balance -2630 ml -2515.8 ml 1492 ml Physical Exam General: Alert, Oriented X3, Cooperative, moderate distress Heart: Regular rate, Other (AFIB RVR, distant heart sounds) Lungs: Other (Decreased breath sounds bilaterally) Abdomen: Soft, Other (obese) Extremities: Other (3-4+ bilateral LE pitting edema) Skin: Other (tinea pedis bilaterally) Labs Labs: Laboratory Tests Test 12/05/21 07:48 12/05/21 08:00 12/05/21 11:52 12/05/21 17:18 Glucose (Fingerstick) 95 mg/dL (70-99) 131 mg/dL (70-99) 109 mg/dL (70-99) O2 Saturation 96 % (92-99) Arterial Blood pH 7.41 (7.35-7.45) Arterial Blood pCO2 at Patient Temp 63 mmHg (35-46) Arterial Blood pO2 at Patient Temp 86 mmHg (75-108) Arterial Blood HCO3 39 mmol/L (21-28) Arterial Blood Base Excess 12 mmol/L (-3-3) FiO2 45/bipap Test 12/05/21 21:05 12/06/21 05:30 Glucose (Fingerstick) 151 mg/dL (70-99) White Blood Count 4.2 x10^3/uL (4.0-11.0) Red Blood Count 4.32 x10^6/uL (4.30-5.70) Hemoglobin 13.3 g/dL (13.0-17.5) Hematocrit 41.6 % (39.0-53.0) Mean Corpuscular Volume 96 fL (79-100) Mean Corpuscular Hemoglobin 31 pg (25-35) Mean Corpuscular Hemoglobin Concent 32 g/dL (31-37) Red Cell Distribution Width 15.4 % (11.5-14.5) Platelet Count 145 x10^3/uL (140-400) Neutrophils (%) (Auto) 62 % (31-73) Lymphocytes (%) (Auto) 21 % (24-48) Monocytes (%) (Auto) 16 % (0-9) Eosinophils (%) (Auto) 1 % (0-3) Basophils (%) (Auto) 1 % (0-3) Neutrophils # (Auto) 2.6 x10^3/uL (1.8-7.7) Lymphocytes # (Auto) 0.9 x10^3/uL (1.0-4.8) Monocytes # (Auto) 0.7 x10^3/uL (0.0-1.1) Eosinophils # (Auto) 0.0 x10^3/uL (0.0-0.7) Basophils # (Auto) 0.0 x10^3/uL (0.0-0.2) Sodium Level 134 mmol/L (136-145) Potassium Level 4.2 mmol/L (3.5-5.1) Chloride Level 93 mmol/L (98-107) Carbon Dioxide Level 43 mmol/L (21-32) Anion Gap (6-14) Blood Urea Nitrogen 21 mg/dL (8-26) Creatinine 0.9 mg/dL (0.7-1.3) Estimated GFR (Cockcroft-Gault) 87.6 Glucose Level 116 mg/dL (70-99) Calcium Level 8.3 mg/dL (8.5-10.1) Magnesium Level 2.0 mg/dL (1.8-2.4) Assessment and Plan Assessmemt and Plan Problems Medical Problems: (1) Atrial fibrillation with RVR Status: Acute (2) CHF exacerbation Status: Acute (3) COPD exacerbation Status: Acute (4) Pneumonia Status: Acute Comment Review of Relevant I have reviewed the following items wade (where applicable) has been applied. Medications: Current Medications Medications (Trade) Dose Ordered Sig/Theresa Route PRN Reason Start Time Stop Time Status Last Admin Dose Admin Vancomycin HCl 1 gm/Sodium Chloride 250 ml @ 250 mls/hr Q8H IV 12/05/21 15:00 12/06/21 08:30 12/06/21 06:26 Furosemide (Lasix) 80 mg [id number] IVP 12/05/21 09:30 12/05/21 13:36 Diltiazem HCl (Cardizem 24hr Cd) 120 mg DAILY PO 12/05/21 10:00 12/05/21 11:58 Justifications for Admission Other Justification Acute hypoxemic respiratory failure ABY GUERIN MD Dec 06, 2021 07:20
[2021-12-06] MEDS: INSULIN LISPRO 300 UNITS/3 ML VIAL. SQ SCH ×3 (08:00→17:00)
[2021-12-06] MEDS: IPRATRPIUM/ALBUTEROL 0.5/2.5MG 3 ML NEBU. NEB SCH ×4 (08:04→20:00)
[2021-12-06] MEDS: LACTOBACILLUS RHAMNOSUS GG 1 CAPSULE. PO SCH ×2 (09:50→20:58)
[2021-12-06] MEDS: APIXABAN 5 MG TABLET. PO SCH ×2 (09:51→20:58)
[2021-12-06] MEDS: PANTOPRAZOLE 40 MG TABLET.DR. PO SCH (09:51)
[2021-12-06] MEDS: DOXYCYCLINE HYCLATE 100 MG in IV DEXTROSE 5% 100ML 100 ML IV SCH ×2 (10:00→20:59)
--- NOTE | 2021-12-06 10:52 | PDOC ---
PROGRESS NOTES Date of Service: DATE: 12/06/21 TIME: 10:52 Subjective Subjective On BiPAP Objective Objective Vital Signs Date Time Temp Pulse Resp B/P (MAP) Pulse Ox O2 Delivery O2 Flow Rate FiO2 12/06/21 08:04 97 BiPAP/CPAP 12/06/21 06:00 101 18 113/72 12/06/21 04:00 97.8 97.8 12/05/21 18:00 7.0 Intake and Output 12/06/21 07:00 Intake Total 5496.2 ml Output Total 9150 ml Balance -3653.8 ml Intake Oral 3260 ml IV Total 2236.2 ml Output Urine Total 9150 ml Physical Exam Abdomen: Soft, Other (obese) Heart: Regular rate, Other (AFIB RVR, distant heart sounds) Extremities: Other (3-4+ bilateral LE pitting edema) General: Alert, Oriented X3, Cooperative, moderate distress HEENT: Atraumatic, Mucous membr. moist/pink Lungs: Other (diffuse wheeze) MUSCULOSKELETAL: Osteoarthritic changes both hands Neuro: Normal speech, Sensation intact Psych/Mental Status: Mental status NL, Mood NL Skin: Other (tinea pedis bilaterally) Assessment Assessment 1. Acute on chronic respiratory failure, AECOPD,CHF and with possible pneumonia 2. Acute on chronic diastolic CHF 3. PAFIB with RVR 4. DM2 with hypoglycemic reaction: per PCP 5. Hypertension 6. HLP 7. BALTA 8. Sepsis Recommendations Continue Eliquis for stroke prophylaxis. Continue Cardizem for rate control Secondary prevention measures BiPAP Lasix therapy Ongoing lung optimization, Continue antibiotic therapy Outpatient ischemic evaluation Plan Plan of Care Problems Medical Problems: (1) Atrial fibrillation with RVR Status: Acute (2) CHF exacerbation Status: Acute (3) COPD exacerbation Status: Acute (4) Pneumonia Status: Acute Comment Review of Relevant I have reviewed the following items wade (where applicable) has been applied. Labs Laboratory Tests Test 12/05/21 11:52 12/05/21 17:18 12/05/21 21:05 12/06/21 05:30 Glucose (Fingerstick) 131 mg/dL (70-99) 109 mg/dL (70-99) 151 mg/dL (70-99) White Blood Count 4.2 x10^3/uL (4.0-11.0) Red Blood Count 4.32 x10^6/uL (4.30-5.70) Hemoglobin 13.3 g/dL (13.0-17.5) Hematocrit 41.6 % (39.0-53.0) Mean Corpuscular Volume 96 fL (79-100) Mean Corpuscular Hemoglobin 31 pg (25-35) Mean Corpuscular Hemoglobin Concent 32 g/dL (31-37) Red Cell Distribution Width 15.4 % (11.5-14.5) Platelet Count 145 x10^3/uL (140-400) Neutrophils (%) (Auto) 62 % (31-73) Lymphocytes (%) (Auto) 21 % (24-48) Monocytes (%) (Auto) 16 % (0-9) Eosinophils (%) (Auto) 1 % (0-3) Basophils (%) (Auto) 1 % (0-3) Neutrophils # (Auto) 2.6 x10^3/uL (1.8-7.7) Lymphocytes # (Auto) 0.9 x10^3/uL (1.0-4.8) Monocytes # (Auto) 0.7 x10^3/uL (0.0-1.1) Eosinophils # (Auto) 0.0 x10^3/uL (0.0-0.7) Basophils # (Auto) 0.0 x10^3/uL (0.0-0.2) Sodium Level 134 mmol/L (136-145) Potassium Level 4.2 mmol/L (3.5-5.1) Chloride Level 93 mmol/L (98-107) Carbon Dioxide Level 43 mmol/L (21-32) Anion Gap (6-14) Blood Urea Nitrogen 21 mg/dL (8-26) Creatinine 0.9 mg/dL (0.7-1.3) Estimated GFR (Cockcroft-Gault) 87.6 Glucose Level 116 mg/dL (70-99) Calcium Level 8.3 mg/dL (8.5-10.1) Magnesium Level 2.0 mg/dL (1.8-2.4) Microbiology 12/03/21 Blood Culture - Preliminary, Resulted NO GROWTH AFTER 2 DAYS Medications Current Medications Furosemide (Lasix) 80 mg [id number] IVP ; Start 12/06/21 at 14:00 Vancomycin HCl 1 gm/Sodium Chloride 250 ml @ 250 mls/hr Q8H IV Last administered on 12/06/21at 06:26; Start 12/05/21 at 15:00; Stop 12/06/21 at 07:19; Status DC Vancomycin HCl 1 gm/Sodium Chloride 250 ml @ 250 mls/hr Q8H IV ; Start 12/05/21 at 15:00; Status Cancel Vancomycin HCl 1 gm/Sodium Chloride 250 ml @ 250 mls/hr Q8H IV ; Start 12/06/21 at 15:00; Stop 12/06/21 at 07:19; Status DC Vitals/I & O Vital Sign - Last 24 Hours 12/05/21 12/05/21 12/05/21 12/05/21 11:00 11:39 11:43 11:43 Pulse 118 Resp 28 B/P (MAP) 105/64 (78) Pulse Ox 95 95 O2 Delivery Venturi Mask BiPAP/CPAP Bi-pap O2 Flow Rate 15.0 12/05/21 12/05/21 12/05/21 12/05/21 11:58 12:00 13:00 13:56 Temp 99.0 99.0 Pulse 127 118 112 104 Resp 26 26 B/P (MAP) 94/64 94/64 (74) 94/63 (73) 77/50 Pulse Ox 96 95 94 O2 Delivery BiPAP/CPAP BiPAP/CPAP BiPAP/CPAP 12/05/21 12/05/21 12/05/21 12/05/21 14:15 15:00 16:00 16:00 Pulse 94 108 94 Resp 26 20 20 B/P (MAP) 89/47 101/56 101/64 Pulse Ox 94 20 95 O2 Delivery BiPAP/CPAP BiPAP/CPAP Bi-pap BiPAP/CPAP 12/05/21 12/05/21 12/05/21 12/05/21 16:10 16:45 17:00 17:52 Pulse 102 101 Resp 20 20 B/P (MAP) 101/55 89/52 Pulse Ox 95 94 95 94 O2 Delivery BiPAP/CPAP BiPAP/CPAP BiPAP/CPAP BiPAP/CPAP 12/05/21 12/05/21 12/05/21 12/05/21 18:00 19:00 20:00 20:00 Temp 99.3 99.3 Pulse 124 119 105 Resp 20 20 20 B/P (MAP) 94/45 97/59 82/52 Pulse Ox 87 94 92 O2 Delivery Nasal Cannula BiPAP/CPAP BiPAP/CPAP Bi-pap O2 Flow Rate 7.0 12/05/21 12/05/21 12/05/21 12/05/21 21:00 21:21 22:00 23:00 Pulse 106 118 107 Resp 20 16 20 B/P (MAP) 109/62 79/54 90/56 Pulse Ox 95 95 95 93 O2 Delivery BiPAP/CPAP BiPAP/CPAP BiPAP/CPAP BiPAP/CPAP 12/06/21 12/06/21 12/06/21 12/06/21 00:00 00:00 01:00 01:43 Temp 98.4 98.4 Pulse 109 104 Resp 23 B/P (MAP) 104/63 94/63 Pulse Ox 94 96 98 O2 Delivery BiPAP/CPAP Bi-pap BiPAP/CPAP BiPAP/CPAP 12/06/21 12/06/21 12/06/21 12/06/21 02:00 03:00 04:00 04:00 Temp 97.8 97.8 Pulse 97 100 96 Resp 16 20 B/P (MAP) 105/67 91/61 81/66 Pulse Ox 96 96 97 O2 Delivery BiPAP/CPAP BiPAP/CPAP BiPAP/CPAP Bi-pap 12/06/21 12/06/21 12/06/21 12/06/21 04:22 05:00 06:00 08:04 Pulse 110 101 Resp 28 18 B/P (MAP) 111/61 113/72 Pulse Ox 98 98 99 97 O2 Delivery BiPAP/CPAP BiPAP/CPAP BiPAP/CPAP BiPAP/CPAP Intake and Output 12/05/21 12/05/21 12/06/21 15:00 23:00 07:00 Intake Total 670 ml 2234.2 ml 2592 ml Output Total 3300 ml 4750 ml 1100 ml Balance -2630 ml -2515.8 ml 1492 ml JENNIFFER ROTHMAN MD Dec 06, 2021 10:52
--- NOTE | 2021-12-06 12:46 | RAD ---
AP portable chest radiograph 12/06/2021 Clinical History: CHF. An AP erect portable digital radiograph of the chest was obtained. Comparison study is dated 12/03/2021. The cardiac silhouette is mildly enlarged. The thoracic aorta is mildly tortuous. Previously congesti ve changes are seen involving both lungs. No pneumothorax or pleural effusion is seen. The osseous st ructures are unchanged. Impression: Improving CHF. Electronically signed by: William Gamez MD (12/06/2021 12:44 PM) [id number]
[2021-12-06] MEDS: FUROSEMIDE 100 MG/10 ML VIAL. IVP SCH ×2 (14:55→21:59)
[2021-12-06] MEDS ORDERED: VANCOMYCIN 1 GM in IV NORMAL SALINE 250ML 250 ML IV SCH (15:00)
--- NOTE | 2021-12-06 20:58 | NUR ---
Remains off vasopressor. See flow sheet for results. IVF Dc,d. Able to downgrade to CVC status-no available beds at this time. Tolerates eating w O2 6l HFNC but overt exertional dyspnea w sats 84-88%/tachypnea and elevated HR. Return to BiPaP previous setting w recovery of all VS in 2-5 min period of time. Discussed PICC w reiteration of purpose. Refused placement at this time. BLE remain edematous. Lasix chane to TID. Discussed BP changes w adm po Cardizem. Time change approved by Dr Grajeda so combined lasix /cardizem effect avoided. Sl improvement. Cont to monitor. Discussed FR 200ml/24 H w Merrill. Started at time ordered(1100)
[2021-12-07] VITALS (14 sets, daily range): BP systolic 100–143; BP diastolic 61–85
[2021-12-07] MEDS: FUROSEMIDE 100 MG/10 ML VIAL. IVP SCH ×2 (05:46→14:00)
[2021-12-07 05:53] LABS: BLOOD UREA NITROGEN 16 mg/dL (8-26); CALCIUM 8.2 mg/dL (8.5-10.1); CHLORIDE 96 mmol/L (98-107); CREATININE 0.8 mg/dL (0.7-1.3); GFR 100.4; GLUCOSE 122 mg/dL (70-99); MAGNESIUM 1.9 mg/dL (1.8-2.4); POTASSIUM 3.4 mmol/L (3.5-5.1); SODIUM 138 mmol/L (136-145)
[2021-12-07 05:56] LABS: CARBON DIOXIDE > 45 mmol/L (21-32)
--- NOTE | 2021-12-07 06:03 | PDOC ---
PULMONARY PROGRESS NOTES DATE: 12/07/21 TIME: 06:00 Subjective on bipap 18/05 40% feels better didt tolerate off bipap yesterday afib rate controlled Patient transferred to the ICU 12/04 afternoon due to worsening hypercapnia. Vitals Vital Signs Date Time Temp Pulse Resp B/P (MAP) Pulse Ox O2 Delivery O2 Flow Rate FiO2 12/07/21 04:00 Bi-pap 12/07/21 04:00 97 12/07/21 04:00 97.8 96 20 110/69 (83) 97.8 12/06/21 17:00 6.0 General: Alert, No acute distress HEENT: Other (nc at perrl bipap mask on ) Lungs: Other (Decreased breath sounds bilaterally) Cardiovascular: S1, S2 Abdomen: Soft, Non-tender Neuro Exam: Alert Extremities: Other (3+ pitting edema) Skin: Warm Labs Laboratory Tests Test 12/05/21 06:59 12/05/21 07:48 12/05/21 08:00 12/05/21 11:52 Glucose (Fingerstick) 110 mg/dL (70-99) 95 mg/dL (70-99) 131 mg/dL (70-99) O2 Saturation 96 % (92-99) Arterial Blood pH 7.41 (7.35-7.45) Arterial Blood pCO2 at Patient Temp 63 mmHg (35-46) Arterial Blood pO2 at Patient Temp 86 mmHg (75-108) Arterial Blood HCO3 39 mmol/L (21-28) Arterial Blood Base Excess 12 mmol/L (-3-3) FiO2 45/bipap Test 12/05/21 17:18 12/05/21 21:05 12/06/21 05:30 12/06/21 11:46 Glucose (Fingerstick) 109 mg/dL (70-99) 151 mg/dL (70-99) 148 mg/dL (70-99) White Blood Count 4.2 x10^3/uL (4.0-11.0) Red Blood Count 4.32 x10^6/uL (4.30-5.70) Hemoglobin 13.3 g/dL (13.0-17.5) Hematocrit 41.6 % (39.0-53.0) Mean Corpuscular Volume 96 fL (79-100) Mean Corpuscular Hemoglobin 31 pg (25-35) Mean Corpuscular Hemoglobin Concent 32 g/dL (31-37) Red Cell Distribution Width 15.4 % (11.5-14.5) Platelet Count 145 x10^3/uL (140-400) Neutrophils (%) (Auto) 62 % (31-73) Lymphocytes (%) (Auto) 21 % (24-48) Monocytes (%) (Auto) 16 % (0-9) Eosinophils (%) (Auto) 1 % (0-3) Basophils (%) (Auto) 1 % (0-3) Neutrophils # (Auto) 2.6 x10^3/uL (1.8-7.7) Lymphocytes # (Auto) 0.9 x10^3/uL (1.0-4.8) Monocytes # (Auto) 0.7 x10^3/uL (0.0-1.1) Eosinophils # (Auto) 0.0 x10^3/uL (0.0-0.7) Basophils # (Auto) 0.0 x10^3/uL (0.0-0.2) Sodium Level 134 mmol/L (136-145) Potassium Level 4.2 mmol/L (3.5-5.1) Chloride Level 93 mmol/L (98-107) Carbon Dioxide Level 43 mmol/L (21-32) Anion Gap (6-14) Blood Urea Nitrogen 21 mg/dL (8-26) Creatinine 0.9 mg/dL (0.7-1.3) Estimated GFR (Cockcroft-Gault) 87.6 Glucose Level 116 mg/dL (70-99) Calcium Level 8.3 mg/dL (8.5-10.1) Magnesium Level 2.0 mg/dL (1.8-2.4) Test 12/06/21 18:03 12/06/21 21:08 12/07/21 05:30 Glucose (Fingerstick) 135 mg/dL (70-99) 140 mg/dL (70-99) Sodium Level 138 mmol/L (136-145) Potassium Level 3.4 mmol/L (3.5-5.1) Chloride Level 96 mmol/L (98-107) Carbon Dioxide Level > 45 mmol/L (21-32) Anion Gap (6-14) Blood Urea Nitrogen 16 mg/dL (8-26) Creatinine 0.8 mg/dL (0.7-1.3) Estimated GFR (Cockcroft-Gault) 100.4 Glucose Level 122 mg/dL (70-99) Calcium Level 8.2 mg/dL (8.5-10.1) Magnesium Level 1.9 mg/dL (1.8-2.4) Laboratory Tests Test 12/06/21 11:46 12/06/21 18:03 12/06/21 21:08 12/07/21 05:30 Glucose (Fingerstick) 148 mg/dL (70-99) 135 mg/dL (70-99) 140 mg/dL (70-99) Sodium Level 138 mmol/L (136-145) Potassium Level 3.4 mmol/L (3.5-5.1) Chloride Level 96 mmol/L (98-107) Carbon Dioxide Level > 45 mmol/L (21-32) Anion Gap (6-14) Blood Urea Nitrogen 16 mg/dL (8-26) Creatinine 0.8 mg/dL (0.7-1.3) Estimated GFR (Cockcroft-Gault) 100.4 Glucose Level 122 mg/dL (70-99) Calcium Level 8.2 mg/dL (8.5-10.1) Magnesium Level 1.9 mg/dL (1.8-2.4) Medications Active Scripts Medications Dose Route/Sig Max Daily Dose Days Date Category Furosemide 40 Mg Tablet 3 Tab PO DAILY 12/03/21 Reported Prednisone 20 Mg Tablet 1 Tab PO DAILY 5 09/30/21 Rx Eliquis (Apixaban) 5 Mg Tablet 5 Mg PO BID 30 09/30/21 Rx Diltiazem 24Hr Cd (Diltiazem HCl) 240 Mg Cap.er.24h 240 Mg PO DAILY 30 09/30/21 Rx Advair 500-50 Diskus (Fluticasone/Salmeterol) 1 Each Disk.w.dev 1 Puff INH BID 09/24/21 Reported Albuterol Sulfate Neb Soln (Albuterol Sulfate) 2.5 Mg/3 Ml Vial.neb 2.5 Mg NEB PRN Q4-6HRS PRN 06/12/21 Reported Glyxambi 25 mg-5 mg Tablet (Empagliflozin/Linagliptin) 1 Each Tablet 1 Each PO DAILY 01/03/21 Reported [Albuterol Sulfate] 2.5 MG/3 ML Nebu 2.5 Mg NEB PRN Q2HR PRN 09/26/14 Rx Metformin Hcl Er (Metformin Hcl) 500 Mg Tab.er.24 500 Mg PO BID 11/26/13 Reported Lisinopril 5 Mg Tablet 10 Mg PO DAILY 11/26/13 Reported Glimepiride 4 Mg Tablet 4 Mg PO BID 11/26/13 Reported Spiriva (Tiotropium [place]) 18 Mcg Cap.w.dev 18 Mcg IH DAILY 11/26/13 Reported Impression . 1. Acute on chronic hypoxic and hypercapnic respiratory failure secondary to multifactorial etiologies including a combination of acute on chronic right heart failure, AECOPD and Afib with RVR 2. Hypoglycemia may have also contributed to his encephalopathy initially. Resolved now 3. The patient with underlying severe chronic obstructive pulmonary disease and now comes in with worsening respiratory failure. Acute on chronic obstructive pulmonary disease exacerbation is another trigger. 4. The patient with obesity hypoventilation syndrome and chronic cor pulmonale. On home oxygen at 6 liters and BiPAP at nighttime. 5. Clinically less likely sepsis or infection. 6. Atrial fibrillation with rapid ventricular response, also contributing to heart failure. 7. Fully vaccinated for COVID. An influenza screen and COVID is negative. 8. Abnormal chest x-ray consistent with congestive heart failure. Plan . RECOMMENDATIONS: 12/07 1. titrate fio2 to keep sat 90% more comfortable today try off bipap bipap prn during day cont at night 2. Continue with Lasix. monitor k, cr 3. cardizem for afib afib rate controlled now . 4. Antibiotics can be deescalated soon. 5. Follow up chest x-ray as needed. 6. Lovenox for DVT prophylaxis. 7. Echocardiogram and Cardiology recommendation. 8. Continue Eliquis. 9. Discussed with RN/ RT. 1. desat off bipap cont bipap until resp status more stable Continue BiPAP qhs and as needed during the day. 2. Continue with Lasix. 3. Monitor renal function. 4. Antibiotics can be deescalated soon. 5. Follow up chest x-ray as needed. 6. Lovenox for DVT prophylaxis. 7. Echocardiogram and Cardiology recommendation. 8. Continue Eliquis. 9. Discussed with RN/ RT. GIBSON LYMAN MD Dec 07, 2021 06:03
[2021-12-07] MEDS: IPRATRPIUM/ALBUTEROL 0.5/2.5MG 3 ML NEBU. NEB SCH ×4 (07:39→20:08)
[2021-12-07] MEDS: INSULIN LISPRO 300 UNITS/3 ML VIAL. SQ SCH ×3 (08:00→17:00)
[2021-12-07] MEDS: PANTOPRAZOLE 40 MG TABLET.DR. PO SCH (09:42)
[2021-12-07] MEDS: APIXABAN 5 MG TABLET. PO SCH ×2 (09:42→21:01)
[2021-12-07] MEDS: LACTOBACILLUS RHAMNOSUS GG 1 CAPSULE. PO SCH ×2 (09:43→21:01)
--- NOTE | 2021-12-07 10:01 | PDOC ---
PROGRESS NOTES Date of Service: DATE: 12/07/21 TIME: 10:01 Subjective Subjective On BiPAP Objective Objective Vital Signs Date Time Temp Pulse Resp B/P (MAP) Pulse Ox O2 Delivery O2 Flow Rate FiO2 12/07/21 07:39 92 BiPAP/CPAP 12/07/21 06:00 85 24 143/77 (99) 12/07/21 04:00 97.8 97.8 12/06/21 17:00 6.0 Intake and Output 12/07/21 07:00 Intake Total 2650 ml Output Total 57000 ml Balance -8125 ml Intake Oral 2450 ml IV Total 200 ml Output Urine Total 48079 ml Physical Exam Abdomen: Soft, Other (obese) Heart: Regular rate, Other (AFIB RVR, distant heart sounds) Extremities: Other (3-4+ bilateral LE pitting edema) General: Alert, Oriented X3, Cooperative, moderate distress HEENT: Atraumatic, Mucous membr. moist/pink Lungs: Other (diffuse wheeze) MUSCULOSKELETAL: Osteoarthritic changes both hands Neuro: Normal speech, Sensation intact Psych/Mental Status: Mental status NL, Mood NL Skin: Other (tinea pedis bilaterally) Assessment Assessment 1. Acute on chronic respiratory failure, AECOPD,CHF and with possible pneumonia 2. Acute on chronic diastolic CHF 3. PAFIB with RVR 4. DM2 with hypoglycemic reaction: per PCP 5. Hypertension 6. HLP 7. BALTA 8. Sepsis Recommendations Continue Eliquis for stroke prophylaxis. Continue Cardizem for rate control Secondary prevention measures BiPAP Lasix therapy Ongoing lung optimization, Continue antibiotic therapy Outpatient ischemic evaluation Plan Plan of Care Problems Medical Problems: (1) Atrial fibrillation with RVR Status: Acute (2) CHF exacerbation Status: Acute (3) COPD exacerbation Status: Acute (4) Pneumonia Status: Acute Comment Review of Relevant I have reviewed the following items wade (where applicable) has been applied. Labs Laboratory Tests Test 12/06/21 11:46 12/06/21 18:03 12/06/21 21:08 12/07/21 05:30 Glucose (Fingerstick) 148 mg/dL (70-99) 135 mg/dL (70-99) 140 mg/dL (70-99) Sodium Level 138 mmol/L (136-145) Potassium Level 3.4 mmol/L (3.5-5.1) Chloride Level 96 mmol/L (98-107) Carbon Dioxide Level > 45 mmol/L (21-32) Anion Gap (6-14) Blood Urea Nitrogen 16 mg/dL (8-26) Creatinine 0.8 mg/dL (0.7-1.3) Estimated GFR (Cockcroft-Gault) 100.4 Glucose Level 122 mg/dL (70-99) Calcium Level 8.2 mg/dL (8.5-10.1) Magnesium Level 1.9 mg/dL (1.8-2.4) Microbiology 12/03/21 Blood Culture - Preliminary, Resulted NO GROWTH AFTER 3 DAYS Medications Current Medications Diltiazem HCl (Cardizem 24hr Cd) 120 mg Q24H PO ; Start 12/07/21 at 11:30 Furosemide (Lasix) 80 mg [id number] IVP Last administered on 12/07/21at 05:46; Start 12/06/21 at 14:00 Vancomycin HCl 1 gm/Sodium Chloride 250 ml @ 250 mls/hr Q8H IV ; Start 12/06/21 at 15:00; Stop 12/06/21 at 07:19; Status DC Vitals/I & O Vital Sign - Last 24 Hours 12/06/21 12/06/21 12/06/21 12/06/21 11:00 11:51 12:00 13:00 Temp 98.0 98.0 Pulse 106 114 110 B/P (MAP) 111/69 (83) 124/67 (86) 104/68 (80) Pulse Ox 97 O2 Delivery BiPAP/CPAP BiPAP/CPAP BiPAP/CPAP High Flow Nasal Cannula O2 Flow Rate 6.0 12/06/21 12/06/21 12/06/21 12/06/21 14:00 14:49 15:00 15:49 Pulse 128 114 128 B/P (MAP) 147/85 (105) 119/92 116/68 (84) Pulse Ox 95 O2 Delivery BiPAP/CPAP BiPAP/CPAP BiPAP/CPAP 12/06/21 12/06/21 12/06/21 12/06/21 16:00 16:00 17:00 18:00 Temp 97.9 97.9 Pulse 128 110 128 B/P (MAP) 107/71 (83) 119/69 (86) 131/68 (89) O2 Delivery Bi-pap BiPAP/CPAP High Flow Nasal Cannula BiPAP/CPAP O2 Flow Rate 6.0 12/06/21 12/06/21 12/06/21 12/06/21 19:00 20:00 20:00 20:00 Temp 97.3 97.3 Pulse 98 96 Resp 20 28 B/P (MAP) 136/68 (90) 101/74 (83) Pulse Ox 95 95 95 O2 Delivery BiPAP/CPAP BiPAP/CPAP BiPAP/CPAP Bi-pap 12/06/21 12/06/21 12/06/21 12/07/21 21:00 22:00 23:00 00:00 Pulse 114 105 85 Resp 25 25 20 B/P (MAP) 120/71 (87) 117/73 (88) 114/68 (83) Pulse Ox 95 94 92 97 O2 Delivery BiPAP/CPAP BiPAP/CPAP BiPAP/CPAP BiPAP/CPAP 12/07/21 12/07/21 12/07/21 12/07/21 00:00 00:00 01:00 02:00 Temp 97.5 97.5 Pulse 97 106 96 Resp 24 30 20 B/P (MAP) 112/67 (82) 107/71 (83) 100/62 (75) Pulse Ox 96 91 95 O2 Delivery Bi-pap BiPAP/CPAP BiPAP/CPAP BiPAP/CPAP 12/07/21 12/07/21 12/07/21 12/07/21 03:00 04:00 04:00 04:00 Temp 97.8 97.8 Pulse 91 96 Resp 20 20 B/P (MAP) 108/61 (77) 110/69 (83) Pulse Ox 91 93 97 O2 Delivery BiPAP/CPAP BiPAP/CPAP BiPAP/CPAP Bi-pap 12/07/21 12/07/21 12/07/21 05:00 06:00 07:39 Pulse 81 85 Resp 20 24 B/P (MAP) 118/78 (91) 143/77 (99) Pulse Ox 95 95 92 O2 Delivery BiPAP/CPAP BiPAP/CPAP BiPAP/CPAP Intake and Output 12/06/21 12/06/21 12/07/21 15:00 23:00 07:00 Intake Total 1150 ml 750 ml 750 ml Output Total 3550 ml 5125 ml 2100 ml Balance -2400 ml -4375 ml -1350 ml JENNIFFER ROTHMAN MD Dec 07, 2021 10:01
[2021-12-07] MEDS: POTASSIUM CHLORIDE 20 MEQ TABLET.ER. PO SCH (11:30)
[2021-12-07] MEDS ORDERED: POTASSIUM CHLORIDE 20 MEQ TABLET.ER. PO ONE (11:30)
--- NOTE | 2021-12-07 11:43 | PDOC ---
[facility] PROGRESS NOTE Date of Service DOS: DATE: 12/07/21 TIME: 11:27 Chief Complaint Chief Complaint A/P: Sepsis Acute hypoxic/hypercapnic respiratory failure requiring BiPAP support Right lower lobe pneumonia, possible gram-negative organisms possible aspiration Hemodynamic instability, possible septic shock A. fib RVR Acute electrolyte derangementhyponatremia, likely hypervolemic Acute on chronic respiratory acidosis Lactic acidemia Elevated BNP suggestive of volume overload History of COPD History of diabetes mellitus type 2 History of tobacco misuse Refractory hypoglycemia related to sulfonylurea use - can stop d5 today Continue with hypoglycemia protocol with the addition of glucagon as needed to maintain glucose levels greater than 70 Continue empiric IV antibiotics Pulmonology consult for O2 management Cardiology consult for atrial fibrillation Pending blood and sputum cultures Pending urine Legionella antigen and MRSA screen Continue telemetry monitoring Cardiology consult R ISS and Accu-Cheks Lovenox for DVT prophylaxis Protonix GI prophylaxis ADA diet CODE STATUS assumed full code Discussed with RN and SW Disposition continue ICU care DPOA: Kailee Pelayo History of Present Illness History of Present Illness 56-year-old male with past medical history of CHF, COPD on 6 L home O2, diabetes mellitus 2 Who comes in with shortness of breath for the past several weeks. The past few days has worsened to the point where he needed to come to the ED for further evaluation. Patient is on torsemide at home for his CHF. Patient currently denies any chest pain or fevers or cough or body aches or dysuria or hematuria or abdominal pain or diarrhea. 12/04: Patient tolerating BiPAP not short of breath at this time. Transferred to ICU for persistent hypoglycemia, atrial tachycardia. Started on D5 NS and amps of dextrose as needed. Attempting to try to maintain sugars greater than 70. 1 dose of glucagon given. 12/05: Seen bedside in ICU on BiPAP. Very swollen bilateral lower extremities. Irregular on telemetry A. fib/flutter he is unable to get a deep breath. CC time 37 minutes 12/06: Seen in ICU on BiPAP. 9L Urine output last 24 hours. Remains in atrial arrhythmia. Glucose climbing. We will stop D5. 12/07: Seen in ICU was on BiPAP overnight. 10.7 L urine output last 24 hours with Lasix 40 3 times daily. Still in atrial arrhythmia. Glucose normalizing. Today he tells me he thinks his dry weight is around 255 pounds and that he has been taking torsemide from his PCP since 2011 and was recently changed to 120 mg 3 times daily of furosemide but was having minimal urine output at home with this and multiple episodes of diarrhea. CC time 31 min Vitals/I&O Vitals/I&O: Vital Signs Date Time Temp Pulse Resp B/P (MAP) Pulse Ox O2 Delivery O2 Flow Rate FiO2 12/07/21 07:39 92 BiPAP/CPAP 12/07/21 06:00 85 24 143/77 (99) 12/07/21 04:00 97.8 97.8 12/06/21 17:00 6.0 I & O 12/06/21 12/06/21 12/07/21 15:00 23:00 07:00 Intake Total 1150 ml 750 ml 750 ml Output Total 3550 ml 5125 ml 2100 ml Balance -2400 ml -4375 ml -1350 ml Physical Exam General: Alert, Oriented X3, Cooperative, moderate distress Heart: Regular rate, Other (AFIB RVR, distant heart sounds) Lungs: Other (Decreased breath sounds bilaterally) Abdomen: Soft, Other (obese) Extremities: Other (3-4+ bilateral LE pitting edema) Skin: Other (tinea pedis bilaterally) Labs Labs: Laboratory Tests Test 12/06/21 11:46 12/06/21 18:03 12/06/21 21:08 12/07/21 05:30 Glucose (Fingerstick) 148 mg/dL (70-99) 135 mg/dL (70-99) 140 mg/dL (70-99) Sodium Level 138 mmol/L (136-145) Potassium Level 3.4 mmol/L (3.5-5.1) Chloride Level 96 mmol/L (98-107) Carbon Dioxide Level > 45 mmol/L (21-32) Anion Gap (6-14) Blood Urea Nitrogen 16 mg/dL (8-26) Creatinine 0.8 mg/dL (0.7-1.3) Estimated GFR (Cockcroft-Gault) 100.4 Glucose Level 122 mg/dL (70-99) Calcium Level 8.2 mg/dL (8.5-10.1) Magnesium Level 1.9 mg/dL (1.8-2.4) Assessment and Plan Assessmemt and Plan Problems Medical Problems: (1) Atrial fibrillation with RVR Status: Acute (2) CHF exacerbation Status: Acute (3) COPD exacerbation Status: Acute (4) Pneumonia Status: Acute Comment Review of Relevant I have reviewed the following items wade (where applicable) has been applied. Medications: Current Medications Medications (Trade) Dose Ordered Sig/Theresa Route PRN Reason Start Time Stop Time Status Last Admin Dose Admin Furosemide (Lasix) 80 mg [id number] IVP 12/06/21 14:00 12/07/21 05:46 Justifications for Admission Other Justification Acute hypoxemic respiratory failure ABY GUERIN MD Dec 07, 2021 11:43
--- NOTE | 2021-12-07 20:58 | NUR ---
Able to go 75 % day on humidified HFNC at 6 liters w sats 85-92. Activity exacerbates dyspnea. recognizes alex for Bipap use. Knowledgeable late after noon. on function and use. Able to apply independently as needed. Tremors unchanged,no interference w fine motor movement. A total loss of 9kg water weight since admission.
[2021-12-07] MEDS: DOXYCYCLINE HYCLATE 100 MG TABLET PO SCH (21:01)
[2021-12-08 03:02] VITALS: BP 125/80
[2021-12-08] MEDS: PANTOPRAZOLE 40 MG TABLET.DR. PO SCH (06:19)
[2021-12-08] MEDS: IPRATRPIUM/ALBUTEROL 0.5/2.5MG 3 ML NEBU. NEB SCH ×4 (07:37→19:56)
[2021-12-08 07:49] VITALS: BP 126/85
[2021-12-08] MEDS: INSULIN LISPRO 300 UNITS/3 ML VIAL. SQ SCH ×3 (08:00→17:00)
[2021-12-08] MEDS: LACTOBACILLUS RHAMNOSUS GG 1 CAPSULE. PO SCH ×2 (08:18→20:06)
[2021-12-08] MEDS: DOXYCYCLINE HYCLATE 100 MG TABLET PO SCH ×2 (08:19→20:05)
[2021-12-08] MEDS: POTASSIUM CHLORIDE 20 MEQ TABLET.ER. PO SCH (08:20)
--- NOTE | 2021-12-08 08:22 | PDOC ---
PULMONARY PROGRESS NOTES DATE: 12/08/21 TIME: 08: Subjective on bipap 18/05 40% feels better didt tolerate off bipap yesterday afib rate controlled Patient transferred to the ICU 12/04 afternoon due to worsening hypercapnia. Vitals Vital Signs Date Time Temp Pulse Resp B/P (MAP) Pulse Ox O2 Delivery O2 Flow Rate FiO2 12/08/21 07:49 98.1 88 20 126/85 (99) 96 High Flow Nasal Cannula 6.0 98.1 General: Alert, No acute distress HEENT: Other (nc at perrl bipap mask on ) Lungs: Other (Decreased breath sounds bilaterally) Cardiovascular: S1, S2 Abdomen: Soft, Non-tender Neuro Exam: Alert Extremities: Other (3+ pitting edema) Skin: Warm Labs Laboratory Tests Test 12/06/21 11:46 12/06/21 18:03 12/06/21 21:08 12/07/21 05:30 Glucose (Fingerstick) 148 mg/dL (70-99) 135 mg/dL (70-99) 140 mg/dL (70-99) Sodium Level 138 mmol/L (136-145) Potassium Level 3.4 mmol/L (3.5-5.1) Chloride Level 96 mmol/L (98-107) Carbon Dioxide Level > 45 mmol/L (21-32) Anion Gap (6-14) Blood Urea Nitrogen 16 mg/dL (8-26) Creatinine 0.8 mg/dL (0.7-1.3) Estimated GFR (Cockcroft-Gault) 100.4 Glucose Level 122 mg/dL (70-99) Calcium Level 8.2 mg/dL (8.5-10.1) Magnesium Level 1.9 mg/dL (1.8-2.4) Test 12/07/21 17:50 12/07/21 20:57 12/08/21 08:01 Glucose (Fingerstick) 121 mg/dL (70-99) 178 mg/dL (70-99) 117 mg/dL (70-99) Laboratory Tests Test 12/07/21 17:50 12/07/21 20:57 12/08/21 08:01 Glucose (Fingerstick) 121 mg/dL (70-99) 178 mg/dL (70-99) 117 mg/dL (70-99) Medications Active Scripts Medications Dose Route/Sig Max Daily Dose Days Date Category Furosemide 40 Mg Tablet 3 Tab PO DAILY 12/03/21 Reported Prednisone 20 Mg Tablet 1 Tab PO DAILY 5 09/30/21 Rx Eliquis (Apixaban) 5 Mg Tablet 5 Mg PO BID 30 09/30/21 Rx Diltiazem 24Hr Cd (Diltiazem HCl) 240 Mg Cap.er.24h 240 Mg PO DAILY 30 09/30/21 Rx Advair 500-50 Diskus (Fluticasone/Salmeterol) 1 Each Disk.w.dev 1 Puff INH BID 09/24/21 Reported Albuterol Sulfate Neb Soln (Albuterol Sulfate) 2.5 Mg/3 Ml Vial.neb 2.5 Mg NEB PRN Q4-6HRS PRN 06/12/21 Reported Glyxambi 25 mg-5 mg Tablet (Empagliflozin/Linagliptin) 1 Each Tablet 1 Each PO DAILY 01/03/21 Reported [Albuterol Sulfate] 2.5 MG/3 ML Nebu 2.5 Mg NEB PRN Q2HR PRN 09/26/14 Rx Metformin Hcl Er (Metformin Hcl) 500 Mg Tab.er.24 500 Mg PO BID 11/26/13 Reported Lisinopril 5 Mg Tablet 10 Mg PO DAILY 11/26/13 Reported Glimepiride 4 Mg Tablet 4 Mg PO BID 11/26/13 Reported Spiriva (Tiotropium [place]) 18 Mcg Cap.w.dev 18 Mcg IH DAILY 11/26/13 Reported Impression . 1. Acute on chronic hypoxic and hypercapnic respiratory failure secondary to multifactorial etiologies including a combination of acute on chronic right heart failure, AECOPD and Afib with RVR 2. Metabolic toxic encephalopathy 3. The patient with underlying severe chronic obstructive pulmonary disease and now comes in with worsening respiratory failure. Acute on chronic obstructive pulmonary disease exacerbation is another trigger. 4. The patient with obesity hypoventilation syndrome and chronic cor pulmonale. On home oxygen at 6 liters and BiPAP at nighttime. 5. Possible sepsis 6. Atrial fibrillation with rapid ventricular response, also contributing to heart failure. 7. Fully vaccinated for COVID. An influenza screen and COVID is negative. 8. Abnormal chest x-ray consistent with congestive heart failure. Plan . Updated 12/08 Patient improving okay to transfer out of the ICU Continue BiPAP Follow cardiology input De-escalate antibiotics DVT GI prophylaxis Continue Eliquis May benefit from wound care eval, chronic lymphedema 12/07 1. titrate fio2 to keep sat 90% more comfortable today try off bipap bipap prn during day cont at night 2. Continue with Lasix. monitor k, cr 3. cardizem for afib afib rate controlled now . 4. Antibiotics can be deescalated soon. 5. Follow up chest x-ray as needed. 6. Lovenox for DVT prophylaxis. 7. Echocardiogram and Cardiology recommendation. 8. Continue Eliquis. 9. Discussed with RN/ RT. KADE SANCHEZ MD Dec 08, 2021 08:22
[2021-12-08] MEDS: MAGNESIUM OXIDE 400 MG TABLET PO SCH (08:28)
[2021-12-08] MEDS: FUROSEMIDE 100 MG/10 ML VIAL. IVP SCH ×2 (08:28→14:44)
[2021-12-08] MEDS: APIXABAN 5 MG TABLET. PO SCH ×2 (08:28→20:06)
[2021-12-08 11:15] VITALS: BP 132/87
--- NOTE | 2021-12-08 13:52 | PDOC ---
[facility] PROGRESS NOTE Date of Service DOS: DATE: 12/08/21 TIME: 13:52 Chief Complaint Chief Complaint Sepsis Acute hypoxic/hypercapnic respiratory failure requiring BiPAP support Right lower lobe pneumonia, possible gram-negative organisms possible aspiration Hemodynamic instability, possible septic shock A. fib RVR Acute electrolyte derangementhyponatremia, likely hypervolemic Acute on chronic respiratory acidosis Lactic acidemia Elevated BNP suggestive of volume overload History of COPD History of diabetes mellitus type 2 History of tobacco misuse Refractory hypoglycemia related to sulfonylurea use - can stop d5 today Continue empiric IV antibiotics Pulmonology consult for O2 management Cardiology consult for atrial fibrillation Pending blood and sputum cultures Pending urine Legionella antigen and MRSA screen Continue telemetry monitoring Cardiology consult R ISS and Accu-Cheks Lovenox for DVT prophylaxis Protonix GI prophylaxis ADA diet CODE STATUS assumed full code Discussed with RN and SW Disposition continue ICU care DPOA: Kailee Pelayo History of Present Illness History of Present Illness 56-year-old male with past medical history of CHF, COPD on 6 L home O2, diabetes mellitus 2 Who comes in with shortness of breath for the past several weeks. The past few days has worsened to the point where he needed to come to the ED for further evaluation. Patient is on torsemide at home for his CHF. Patient currently denies any chest pain or fevers or cough or body aches or dysuria or hematuria or abdominal pain or diarrhea. 12/04: Patient tolerating BiPAP not short of breath at this time. Transferred to ICU for persistent hypoglycemia, atrial tachycardia. Started on D5 NS and amps of dextrose as needed. Attempting to try to maintain sugars greater than 70. 1 dose of glucagon given. 12/05: Seen bedside in ICU on BiPAP. Very swollen bilateral lower extremities. Irregular on telemetry A. fib/flutter he is unable to get a deep breath. CC time 37 minutes 12/06: Seen in ICU on BiPAP. 9L Urine output last 24 hours. Remains in atrial arrhythmia. Glucose climbing. We will stop D5. 12/07: Seen in ICU was on BiPAP overnight. 10.7 L urine output last 24 hours with Lasix 40 3 times daily. Still in atrial arrhythmia. Glucose normalizing. Today he tells me he thinks his dry weight is around 255 pounds and that he has been taking torsemide from his PCP since 2011 and was recently changed to 120 mg 3 times daily of furosemide but was having minimal urine output at home with this and multiple episodes of diarrhea. CC time 31 min Vitals/I&O Vitals/I&O: Vital Signs Date Time Temp Pulse Resp B/P (MAP) Pulse Ox O2 Delivery O2 Flow Rate FiO2 12/08/21 11:15 97.8 105 22 132/87 (102) 94 BiPAP/CPAP 97.8 12/08/21 08:00 6.0 l I & O 12/07/21 12/07/21 12/08/21 15:00 23:00 07:00 Intake Total 640 ml 510 ml 0 ml Output Total 2700 ml 750 ml 1400 ml Balance -2060 ml -240 ml -1400 ml Physical Exam General: Alert, Oriented X3, Cooperative, moderate distress Heart: Regular rate, Other (AFIB RVR, distant heart sounds) Lungs: Other (Decreased breath sounds bilaterally) Abdomen: Soft, Other (obese) Extremities: Other (3-4+ bilateral LE pitting edema) Skin: Other (tinea pedis bilaterally) Labs Labs: Laboratory Tests Test 12/07/21 17:50 12/07/21 20:57 12/08/21 08:01 12/08/21 11:27 Glucose (Fingerstick) 121 mg/dL (70-99) 178 mg/dL (70-99) 117 mg/dL (70-99) 112 mg/dL (70-99) Assessment and Plan Assessmemt and Plan Problems Medical Problems: (1) Atrial fibrillation with RVR Status: Acute (2) CHF exacerbation Status: Acute (3) COPD exacerbation Status: Acute (4) Pneumonia Status: Acute Comment Review of Relevant I have reviewed the following items wade (where applicable) has been applied. Medications: Current Medications Medications (Trade) Dose Ordered Sig/Theresa Route PRN Reason Start Time Stop Time Status Last Admin Dose Admin Furosemide (Lasix) 80 mg [id number] IVP 12/07/21 14:00 12/08/21 08:28 Magnesium Oxide (Magnesium Oxide) 400 mg DAILY PO 12/08/21 09:00 12/08/21 08:28 Doxycycline Hyclate (Vibra-Tab) 100 mg BID PO 12/07/21 21:00 12/10/21 20:59 12/08/21 08:19 Justifications for Admission Other Justification Acute hypoxemic respiratory failure WAYLON LONG MD Dec 08, 2021 13:52
[2021-12-08] MEDS ORDERED: POLYETHYLENE GLYCOL 3350 17 GM PACKET. PO ONE (15:00)
[2021-12-08 15:05] VITALS: BP 138/73
--- NOTE | 2021-12-08 16:37 | PDOC ---
PROGRESS NOTES Date of Service DATE: 12/08/21 TIME: 16:34 Subjective Subjective Patient seen and examined Objective Objective Vital Signs Date Time Temp Pulse Resp B/P (MAP) Pulse Ox O2 Delivery O2 Flow Rate FiO2 12/08/21 15:50 97 BiPAP/CPAP 12/08/21 15:05 97.2 89 20 138/73 (94) 97.2 12/08/21 08:00 6.0 Intake and Output 12/08/21 07:00 Intake Total 1150 ml Output Total 4850 ml Balance -3700 ml Intake Oral 1150 ml Output Urine Total 4850 ml Physical Exam Abdomen: Normal bowel sounds Heart: Other (Irregularly irregular) General: mild distress Lungs: Other (Decreased breath sounds) Assessment Assessment Problems Medical Problems: (1) Atrial fibrillation with RVR Status: Acute (2) CHF exacerbation Status: Acute (3) COPD exacerbation Status: Acute (4) Pneumonia Status: Acute 1. Acute on chronic respiratory failure, AECOPD,CHF and with possible pneumonia. Mildly improved today. Continues on BiPAP. Followed by pulmonary. 2. Acute on chronic diastolic CHF 3. PAFIB. Rate now 98. Continue present medications and treatment. On Eliquis. Cardizem for rate control. Outpatient ischemia evaluation. 4. DM2 with hypoglycemic reaction: per PCP 5. Hypertension 6. HLP 7. BALTA 8. Sepsis Comment Review of Relevant I have reviewed the following items wade (where applicable) has been applied. Labs Laboratory Tests Test 12/06/21 18:03 12/06/21 21:08 12/07/21 05:30 12/07/21 17:50 Glucose (Fingerstick) 135 mg/dL (70-99) 140 mg/dL (70-99) 121 mg/dL (70-99) Sodium Level 138 mmol/L (136-145) Potassium Level 3.4 mmol/L (3.5-5.1) Chloride Level 96 mmol/L (98-107) Carbon Dioxide Level > 45 mmol/L (21-32) Anion Gap (6-14) Blood Urea Nitrogen 16 mg/dL (8-26) Creatinine 0.8 mg/dL (0.7-1.3) Estimated GFR (Cockcroft-Gault) 100.4 Glucose Level 122 mg/dL (70-99) Calcium Level 8.2 mg/dL (8.5-10.1) Magnesium Level 1.9 mg/dL (1.8-2.4) Test 12/07/21 20:57 12/08/21 08:01 12/08/21 11:27 Glucose (Fingerstick) 178 mg/dL (70-99) 117 mg/dL (70-99) 112 mg/dL (70-99) Laboratory Tests Test 12/07/21 17:50 12/07/21 20:57 12/08/21 08:01 12/08/21 11:27 Glucose (Fingerstick) 121 mg/dL (70-99) 178 mg/dL (70-99) 117 mg/dL (70-99) 112 mg/dL (70-99) Microbiology 12/03/21 Blood Culture - Final, Complete NO GROWTH AFTER 5 DAYS Medications Current Medications Albuterol/ Ipratropium (Duoneb) 3 ml 1X ONCE NEB Last administered on 12/03/21at 12:00; Start 12/03/21 at 12:00; Stop 12/03/21 at 12:01; Status DC Digoxin (Lanoxin) 500 mcg 1X ONCE IV Last administered on 12/03/21at 13:35; Start 12/03/21 at 13:15; Stop 12/03/21 at 13:16; Status DC Ceftriaxone Sodium (Rocephin) 1 gm 1X ONCE IVP Last administered on 12/03/21at 13:34; Start 12/03/21 at 13:15; Stop 12/03/21 at 13:18; Status DC Azithromycin 250 ml @ 250 mls/hr 1X ONCE IV Last administered on 12/03/21at 13:33; Start 12/03/21 at 13:15; Stop 12/03/21 at 14:14; Status DC Sodium Chloride 500 ml @ 500 mls/hr 1X ONCE IV Last administered on 12/03/21at 13:28; Start 12/03/21 at 13:15; Stop 12/03/21 at 14:14; Status DC Furosemide (Lasix) 60 mg 1X ONCE IVP Last administered on 12/03/21at 15:02; Start 12/03/21 at 14:00; Stop 12/03/21 at 14:01; Status DC Vancomycin HCl (Vanco Per Pharmacy) 1 each PRN DAILY PRN MC SEE COMMENTS Last administered on 12/05/21at 10:54; Start 12/03/21 at 14:30; Stop 12/06/21 at 07:19; Status DC Cefepime HCl (Maxipime) 1 gm Q8HRS IVP Last administered on 12/06/21at 05:29; Start 12/03/21 at 22:00; Stop 12/06/21 at 07:19; Status DC Doxycycline Hyclate 100 mg/ Dextrose 100 ml @ 50 mls/hr BID IV Last administered on 12/06/21at 20:59; Start 12/03/21 at 15:00; Stop 12/07/21 at 12:58; Status DC Sennosides (Senna) 17.2 mg PRN BID PRN PO CONSTIPATION; Start 12/03/21 at 14:30 Docusate Sodium (Colace) 100 mg PRN DAILY PRN PO HARD STOOLS; Start 12/03/21 at 14:30; Stop 12/08/21 at 13:52; Status DC Ondansetron HCl (Zofran) 4 mg PRN Q6HRS PRN IVP NAUSEA/VOMITING, 1st CHOICE; Start 12/03/21 at 14:30 Insulin Human Lispro (HumaLOG) 0-7 UNITS TIDWMEALS SQ ; Start 12/03/21 at 17:00 Dextrose (Dextrose 50%-Water Syringe) 12.5 gm PRN Q15MIN PRN IV SEE COMMENTS Last administered on 12/04/21at 06:32; Start 12/03/21 at 14:30; Stop 12/04/21 at 07:05; Status DC Acetaminophen (Tylenol) 650 mg PRN Q4HRS PRN PO TEMP OVER 100.4F OR MILD PAIN; Start 12/03/21 at 14:30 Lorazepam (Ativan) 0.5 mg PRN Q6HRS PRN PO ANXIETY / AGITATION; Start 12/03/21 at 14:30 Lorazepam (Ativan Inj) 0.25 mg PRN Q4HRS PRN IV ANXIETY / AGITATION; Start 12/03/21 at 14:30 Enoxaparin Sodium (Lovenox 40mg Syringe) 40 mg Q24H SQ Last administered on 12/04/21at 13:46; Start 12/03/21 at 15:00; Stop 12/05/21 at 09:14; Status DC Pantoprazole Sodium (Protonix) 40 mg DAILYAC PO Last administered on 12/08/21at 06:19; Start 12/04/21 at 07:30 Prochlorperazine Edisylate (Compazine) 10 mg PRN Q6HRS PRN IV NAUSEA/VOMITING, 2nd CHOICE; Start 12/03/21 at 14:30 Diphenhydramine HCl (Benadryl) 25 mg PRN Q6HRS PRN IVP ITCHING; Start 12/03/21 at 14:30 Diphenhydramine HCl (Benadryl) 25 mg PRN Q6HRS PRN PO ITCHING; Start 12/03/21 at 14:30 Diphenhydramine HCl (Benadryl) 25 mg PRN QHS PRN PO INSOMNIA, 1ST CHOICE; Start 12/03/21 at 14:30 Zolpidem Tartrate (Ambien) 2.5 mg PRN QHS PRN PO INSOMNIA, 2ND CHOICE; Start 12/03/21 at 14:30 Vancomycin HCl 2 gm/Sodium Chloride 500 ml @ 250 mls/hr 1X ONCE IV Last administered on 12/03/21at 15:04; Start 12/03/21 at 15:00; Stop 12/03/21 at 16:59; Status DC Vancomycin HCl 1 gm/Sodium Chloride 250 ml @ 250 mls/hr Q8H IV Last administered on 12/05/21at 07:46; Start 12/03/21 at 23:00; Stop 12/05/21 at 10:00; Status DC Vancomycin HCl (Vancomycin Trough Level) 1 each 1X ONCE MC Last administered on 12/04/21at 14:30; Start 12/04/21 at 14:30; Stop 12/04/21 at 14:31; Status DC Digoxin (Lanoxin) 250 mcg 1X ONCE IV Last administered on 12/03/21at 19:41; Start 12/03/21 at 19:15; Stop 12/03/21 at 19:16; Status DC Digoxin (Lanoxin) 250 mcg 1X ONCE IV Last administered on 12/04/21at 00:22; Start 12/04/21 at 00:15; Stop 12/04/21 at 00:16; Status DC Sodium Chloride 500 ml @ 250 mls/hr 1X ONCE IV ; Start 12/03/21 at 23:00; Stop 12/04/21 at 00:59; Status Cancel Sodium Chloride 250 ml @ 250 mls/hr 1X ONCE IV Last administered on 12/03/21at 23:00; Start 12/03/21 at 23:00; Stop 12/03/21 at 23:59; Status DC Sodium Chloride 500 ml @ 250 mls/hr 1X ONCE IV Last administered on 12/03/21at 23:39; Start 12/03/21 at 23:30; Stop 12/04/21 at 01:29; Status DC Dextrose/Sodium Chloride 1,000 ml @ 50 mls/hr Q20H IV Last administered on 12/06/21at 05:25; Start 12/04/21 at 05:30; Stop 12/06/21 at 08:43; Status DC Dextrose (Dextrose 50%-Water Syringe) 50 gm PRN 1X PRN IV HYPOGLYCEMIA Last administered on 12/04/21at 13:09; Start 12/04/21 at 07:15 Glucagon (Glucagen) 1 mg 1X ONCE IV Last administered on 12/04/21at 09:15; Start 12/04/21 at 08:30; Stop 12/04/21 at 08:37; Status DC Apixaban (Eliquis) 5 mg BID PO Last administered on 12/08/21at 08:28; Start 12/04/21 at 21:00 Info (Anti-Coagulation Monitoring By Pharmacy) 1 each PRN DAILY PRN MC PER PROTOCOL Last administered on 12/05/21at 10:55; Start 12/04/21 at 10:15 Furosemide (Lasix) 40 mg 1X ONCE IVP Last administered on 12/04/21at 11:18; Start 12/04/21 at 11:00; Stop 12/04/21 at 11:04; Status DC Diltiazem HCl (Cardizem Iv Push) 10 mg 1X ONCE IVP Last administered on 12/04/21at 11:42; Start 12/04/21 at 11:30; Stop 12/04/21 at 11:31; Status DC Diltiazem HCl 125 mg/Sodium Chloride 125 ml @ 5 mls/hr 1X ONCE IV Last admini stered on 12/04/21at 11:30; Start 12/04/21 at 11:30; Stop 12/05/21 at 12:29; Status DC Methylprednisolone Sodium Succinate (SOLU-Medrol 125MG VIAL) 125 mg 1X ONCE IV Last administered on 12/04/21at 11:47; Start 12/04/21 at 11:45; Stop 12/04/21 at 11:46; Status DC Glucagon (Glucagen) 1 mg 1X ONCE IV Last administered on 12/04/21at 13:08; Start 12/04/21 at 12:45; Stop 12/04/21 at 12:46; Status DC Lactobacillus Rhamnosus (Culturelle) 1 cap BID PO Last administered on 12/08/21at 08:18; Start 12/04/21 at 21:00 Albuterol/ Ipratropium (Duoneb) 3 ml RTQID NEB Last administered on 12/08/21at 15:50; Start 12/04/21 at 16:00 Norepinephrine Bitartrate 8 mg/ Dextrose 258 ml @ 23.742 mls/ hr CONT PRN IV PER PROTOCOL; Start 12/04/21 at 18:00; Status Cancel Vancomycin HCl 1 gm/Sodium Chloride 250 ml @ 250 mls/hr Q8H IV ; Start 12/05/21 at 15:00; Status Cancel Vancomycin HCl 1 gm/Sodium Chloride 250 ml @ 250 mls/hr Q8H IV Last administered on 12/06/21at 06:26; Start 12/05/21 at 15:00; Stop 12/06/21 at 07:19; Status DC Furosemide (Lasix) 80 mg [id number] IVP Last administered on 12/05/21at 13:36; Start 12/05/21 at 09:30; Stop 12/06/21 at 09:51; Status DC Diltiazem HCl (Cardizem 24hr Cd) 120 mg DAILY PO Last administered on 12/06/21at 14:49; Start 12/05/21 at 10:00; Stop 12/06/21 at 20:58; Status DC Vancomycin HCl 1 gm/Sodium Chloride 250 ml @ 250 mls/hr Q8H IV ; Start 12/06/21 at 15:00; Stop 12/06/21 at 07:19; Status DC Furosemide (Lasix) 80 mg [id number] IVP Last administered on 12/07/21at 05:46; Start 12/06/21 at 14:00; Stop 12/07/21 at 11:44; Status DC Diltiazem HCl (Cardizem 24hr Cd) 120 mg Q24H PO Last administered on 12/08/21at 08:19; Start 12/07/21 at 11:30 Furosemide (Lasix) 80 mg [id number] IVP Last administered on 12/08/21at 14:44; Start 12/07/21 at 14:00 Magnesium Oxide (Magnesium Oxide) 400 mg DAILY PO Last administered on 12/08/21at 08:28; Start 12/08/21 at 09:00 Potassium Chloride (Klor-Con) 20 meq DAILYWBKFT PO Last administered on 12/08/21at 08:20; Start 12/07/21 at 11:30 Potassium Chloride (Klor-Con) 40 meq 1X ONCE PO Last administered on 12/07/21at 13:01; Start 12/07/21 at 11:30; Stop 12/07/21 at 11:47; Status DC Doxycycline Hyclate (Vibra-Tab) 100 mg BID PO Last administered on 12/08/21at 08:19; Start 12/07/21 at 21:00; Stop 12/10/21 at 20:59 Docusate Sodium (Colace) 100 mg DAILY PO ; Start 12/09/21 at 09:00 Polyethylene Glycol (miraLAX PACKET) 17 gm 1X ONCE PO Last administered on 12/08/21at 14:51; Start 12/08/21 at 15:00; Stop 12/08/21 at 15:01; Status DC Active Scripts Active Prednisone 20 Mg Tablet 1 Tab PO DAILY 5 Days Eliquis (Apixaban) 5 Mg Tablet 5 Mg PO BID 30 Days Diltiazem 24Hr Cd (Diltiazem HCl) 240 Mg Cap.er.24h 240 Mg PO DAILY 30 Days [Albuterol Sulfate] 2.5 MG/3 ML Nebu 2.5 Mg NEB PRN Q2HR PRN Reported Furosemide 40 Mg Tablet 3 Tab PO DAILY Advair 500-50 Diskus (Fluticasone/Salmeterol) 1 Each Disk.w.dev 1 Puff INH BID Albuterol Sulfate Neb Soln (Albuterol Sulfate) 2.5 Mg/3 Ml Vial.neb 2.5 Mg NEB PRN Q4-6HRS PRN Glyxambi 25 mg-5 mg Tablet (Empagliflozin/Linagliptin) 1 Each Tablet 1 Each PO DAILY Metformin Hcl Er (Metformin Hcl) 500 Mg Tab.er.24 500 Mg PO BID Lisinopril 5 Mg Tablet 10 Mg PO DAILY Glimepiride 4 Mg Tablet 4 Mg PO BID Spiriva (Tiotropium [place]) 18 Mcg Cap.w.dev 18 Mcg IH DAILY Vitals/I & O Vital Sign - Last 24 Hours 12/07/21 12/07/21 12/07/21 12/07/21 17:00 19:33 20:00 20:10 Temp 97.7 97.7 Pulse 106 Resp 20 B/P (MAP) 131/73 (92) Pulse Ox 94 93 94 O2 Delivery BiPAP/CPAP High Flow Nasal Cannula Bi-pap BiPAP/CPAP O2 Flow Rate 6.0 12/07/21 12/08/21 12/08/21 12/08/21 23:10 00:15 02:33 03:02 Temp 97.6 97.4 97.6 97.4 Pulse 95 99 Resp 20 20 B/P (MAP) 113/61 (78) 125/80 (95) Pulse Ox 95 95 98 97 O2 Delivery High Flow Nasal Cannula BiPAP/CPAP BiPAP/CPAP High Flow Nasal Cannula O2 Flow Rate 6.0 6.0 12/08/21 12/08/21 12/08/21 12/08/21 05:12 07:38 07:49 08:00 Temp 98.1 98.1 Pulse 88 Resp 20 B/P (MAP) 126/85 (99) Pulse Ox 93 97 96 O2 Delivery BiPAP/CPAP BiPAP/CPAP High Flow Nasal Cannula Bi-pap O2 Flow Rate 6.0 6.0 12/08/21 12/08/21 12/08/21 12/08/21 08:00 08:19 09:26 11:03 Pulse 88 B/P (MAP) 126/85 Pulse Ox 97 97 O2 Delivery BiPAP/CPAP BiPAP/CPAP O2 Flow Rate 6.0 12/08/21 12/08/21 12/08/21 11:15 15:05 15:50 Temp 97.8 97.2 97.8 97.2 Pulse 105 89 Resp 22 20 B/P (MAP) 132/87 (102) 138/73 (94) Pulse Ox 94 96 97 O2 Delivery BiPAP/CPAP BiPAP/CPAP BiPAP/CPAP l Intake and Output 12/07/21 12/07/21 12/08/21 15:00 23:00 07:00 Intake Total 640 ml 510 ml 0 ml Output Total 2700 ml 750 ml 1400 ml Balance -2060 ml -240 ml -1400 ml Justifications for Admission Other Justification Acute hypoxemic respiratory failure DARBY TUTTLE MD Dec 08, 2021 16:37
[2021-12-08 19:23] VITALS: BP 130/76
[2021-12-08 22:35] VITALS: BP 133/79
[2021-12-09 02:31] VITALS: BP 129/87
[2021-12-09] MEDS: PANTOPRAZOLE 40 MG TABLET.DR. PO SCH (05:53)
[2021-12-09 05:59] LABS: CALCIUM 7.8 mg/dL (8.5-10.1); CREATININE 0.7 mg/dL (0.7-1.3); GFR 117.1; POTASSIUM 3.4 mmol/L (3.5-5.1)
[2021-12-09] MEDS: IPRATRPIUM/ALBUTEROL 0.5/2.5MG 3 ML NEBU. NEB SCH ×4 (07:14→19:45)
[2021-12-09 07:52] VITALS: BP 139/85
[2021-12-09] MEDS: INSULIN LISPRO 300 UNITS/3 ML VIAL. SQ SCH ×3 (08:00→16:29)
[2021-12-09] MEDS: MAGNESIUM OXIDE 400 MG TABLET PO SCH (09:00)
--- NOTE | 2021-12-09 09:11 | PDOC ---
[facility] PROGRESS NOTE Date of Service DOS: DATE: 12/09/21 TIME: 09:08 Chief Complaint Chief Complaint Sepsis Acute hypoxic/hypercapnic respiratory failure requiring BiPAP support Right lower lobe pneumonia, possible gram-negative organisms possible aspiration Hemodynamic instability, possible septic shock A. fib RVR Acute electrolyte derangementhyponatremia, likely hypervolemic Acute on chronic respiratory acidosis Lactic acidemia Elevated BNP suggestive of volume overload History of COPD History of diabetes mellitus type 2 History of tobacco misuse Refractory hypoglycemia related to sulfonylurea use - can stop d5 today Continue empiric IV antibiotics Pulmonology consult for O2 management Cardiology consult for atrial fibrillation Pending blood and sputum cultures Pending urine Legionella antigen and MRSA screen Continue telemetry monitoring Cardiology consult R ISS and Accu-Cheks Lovenox for DVT prophylaxis Protonix GI prophylaxis ADA diet CODE STATUS assumed full code Discussed with RN and SW Disposition continue ICU care DPOA: Kailee Pelayo History of Present Illness History of Present Illness 56-year-old male with past medical history of CHF, COPD on 6 L home O2, diabetes mellitus 2 Who comes in with shortness of breath for the past several weeks. The past few days has worsened to the point where he needed to come to the ED for further evaluation. Patient is on torsemide at home for his CHF. Patient currently denies any chest pain or fevers or cough or body aches or dysuria or hematuria or abdominal pain or diarrhea. Glucose normalizing. reveiwed his dry weight is around 255 pounds. 12/09, no stool, miralax and colace given yesterdya, change to BID miralax still on BIPAP, Fi02 40%, Vitals/I&O Vitals/I&O: Vital Signs Date Time Temp Pulse Resp B/P (MAP) Pulse Ox O2 Delivery O2 Flow Rate FiO2 12/09/21 07:52 97.4 95 20 139/85 (103) 95 BiPAP/CPAP 97.4 12/08/21 20:00 6.0 I & O 12/08/21 12/08/21 12/09/21 15:00 23:00 07:00 Intake Total 200 ml 950 ml 1300 ml Output Total 4150 ml 1850 ml 1000 ml Balance -3950 ml -900 ml 300 ml Physical Exam General: Alert, Oriented X3, mild distress Heart: Regular rate, Other (Irregularly irregular) Lungs: Clear, Other (Decreased breath sounds bilaterally) Abdomen: Normal bowel sounds (slower than yesterday, still normal range, ), Soft, No tenderness, No hepatosplenomegaly (to obese to tell), Other (some ) Extremities: No cyanosis, Other (3-4+ bilateral LE pitting edema) Skin: No rashes, Other (tinea pedis bilaterally) Labs Labs: Laboratory Tests Test 12/08/21 11:27 12/08/21 16:45 12/08/21 20:56 12/09/21 03:05 Glucose (Fingerstick) 112 mg/dL (70-99) 123 mg/dL (70-99) 149 mg/dL (70-99) Sodium Level 138 mmol/L (136-145) Potassium Level 3.4 mmol/L (3.5-5.1) Chloride Level 94 mmol/L (98-107) Carbon Dioxide Level 44 mmol/L (21-32) Anion Gap 0 (6-14) Blood Urea Nitrogen 13 mg/dL (8-26) Creatinine 0.7 mg/dL (0.7-1.3) Estimated GFR (Cockcroft-Gault) 117.1 Glucose Level 141 mg/dL (70-99) Calcium Level 7.8 mg/dL (8.5-10.1) Test 12/09/21 07:49 Glucose (Fingerstick) 124 mg/dL (70-99) Review of Systems Review of Systems: no stool breathing a little better, on BIPAP Assessment and Plan Assessmemt and Plan Problems Medical Problems: (1) Atrial fibrillation with RVR Status: Acute (2) CHF exacerbation Status: Acute (3) COPD exacerbation Status: Acute (4) Pneumonia Status: Acute Comment Review of Relevant I have reviewed the following items wade (where applicable) has been applied. Medications: Current Medications Medications (Trade) Dose Ordered Sig/Theresa Route PRN Reason Start Time Stop Time Status Last Admin Dose Admin Polyethylene Glycol (miraLAX PACKET) 17 gm 1X ONCE PO 12/08/21 15:00 12/08/21 15:01 DC 12/08/21 14:51 Justifications for Admission Other Justification Acute hypoxemic respiratory failure WAYLON LONG MD Dec 09, 2021 09:11
[2021-12-09] MEDS: POLYETHYLENE GLYCOL 3350 17 GM PACKET. PO SCH ×2 (09:15→20:39)
--- NOTE | 2021-12-09 09:18 | PDOC ---
PULMONARY PROGRESS NOTES DATE: 12/09/21 TIME: 09:18 Subjective Clinically not improving on bipap 18/05 40% feels better didt tolerate off bipap yesterday afib rate controlled Patient transferred to the ICU 12/04 afternoon due to worsening hypercapnia. Vitals Vital Signs Date Time Temp Pulse Resp B/P (MAP) Pulse Ox O2 Delivery O2 Flow Rate FiO2 12/09/21 07:52 97.4 95 20 139/85 (103) 95 BiPAP/CPAP 97.4 12/08/21 20:00 6.0 General: Alert, No acute distress HEENT: Other (nc at perrl bipap mask on ) Lungs: Clear, Other (Decreased breath sounds bilaterally) Cardiovascular: S1, S2 Abdomen: Soft, Non-tender Neuro Exam: Alert Extremities: Other (3+ pitting edema) Skin: Warm Labs Laboratory Tests Test 12/07/21 17:50 12/07/21 20:57 12/08/21 08:01 12/08/21 11:27 Glucose (Fingerstick) 121 mg/dL (70-99) 178 mg/dL (70-99) 117 mg/dL (70-99) 112 mg/dL (70-99) Test 12/08/21 16:45 12/08/21 20:56 12/09/21 03:05 12/09/21 07:49 Glucose (Fingerstick) 123 mg/dL (70-99) 149 mg/dL (70-99) 124 mg/dL (70-99) Sodium Level 138 mmol/L (136-145) Potassium Level 3.4 mmol/L (3.5-5.1) Chloride Level 94 mmol/L (98-107) Carbon Dioxide Level 44 mmol/L (21-32) Anion Gap 0 (6-14) Blood Urea Nitrogen 13 mg/dL (8-26) Creatinine 0.7 mg/dL (0.7-1.3) Estimated GFR (Cockcroft-Gault) 117.1 Glucose Level 141 mg/dL (70-99) Calcium Level 7.8 mg/dL (8.5-10.1) Laboratory Tests Test 12/08/21 11:27 12/08/21 16:45 12/08/21 20:56 12/09/21 03:05 Glucose (Fingerstick) 112 mg/dL (70-99) 123 mg/dL (70-99) 149 mg/dL (70-99) Sodium Level 138 mmol/L (136-145) Potassium Level 3.4 mmol/L (3.5-5.1) Chloride Level 94 mmol/L (98-107) Carbon Dioxide Level 44 mmol/L (21-32) Anion Gap 0 (6-14) Blood Urea Nitrogen 13 mg/dL (8-26) Creatinine 0.7 mg/dL (0.7-1.3) Estimated GFR (Cockcroft-Gault) 117.1 Glucose Level 141 mg/dL (70-99) Calcium Level 7.8 mg/dL (8.5-10.1) Test 12/09/21 07:49 Glucose (Fingerstick) 124 mg/dL (70-99) Medications Active Scripts Medications Dose Route/Sig Max Daily Dose Days Date Category Furosemide 40 Mg Tablet 3 Tab PO DAILY 12/03/21 Reported Prednisone 20 Mg Tablet 1 Tab PO DAILY 5 09/30/21 Rx Eliquis (Apixaban) 5 Mg Tablet 5 Mg PO BID 30 09/30/21 Rx Diltiazem 24Hr Cd (Diltiazem HCl) 240 Mg Cap.er.24h 240 Mg PO DAILY 30 09/30/21 Rx Advair 500-50 Diskus (Fluticasone/Salmeterol) 1 Each Disk.w.dev 1 Puff INH BID 09/24/21 Reported Albuterol Sulfate Neb Soln (Albuterol Sulfate) 2.5 Mg/3 Ml Vial.neb 2.5 Mg NEB PRN Q4-6HRS PRN 06/12/21 Reported Glyxambi 25 mg-5 mg Tablet (Empagliflozin/Linagliptin) 1 Each Tablet 1 Each PO DAILY 01/03/21 Reported [Albuterol Sulfate] 2.5 MG/3 ML Nebu 2.5 Mg NEB PRN Q2HR PRN 09/26/14 Rx Metformin Hcl Er (Metformin Hcl) 500 Mg Tab.er.24 500 Mg PO BID 11/26/13 Reported Lisinopril 5 Mg Tablet 10 Mg PO DAILY 11/26/13 Reported Glimepiride 4 Mg Tablet 4 Mg PO BID 11/26/13 Reported Spiriva (Tiotropium [place]) 18 Mcg Cap.w.dev 18 Mcg IH DAILY 11/26/13 Reported Impression . 1. Acute on chronic hypoxic and hypercapnic respiratory failure secondary to multifactorial etiologies including a combination of acute on chronic right heart failure, AECOPD and Afib with RVR 2. Metabolic toxic encephalopathy 3. The patient with underlying severe chronic obstructive pulmonary disease and now comes in with worsening respiratory failure. Acute on chronic obstructive pulmonary disease exacerbation is another trigger. 4. The patient with obesity hypoventilation syndrome and chronic cor pulmonale. On home oxygen at 6 liters and BiPAP at nighttime. 5. Possible sepsis 6. Atrial fibrillation with rapid ventricular response, also contributing to heart failure. 7. Fully vaccinated for COVID. An influenza screen and COVID is negative. 8. Abnormal chest x-ray consistent with congestive heart failure. Plan . Update 12/09 Continue current BiPAP settings Discussed with Dr. Nelson Long-term prognosis is poor DVT prophylaxis Continue Eliquis updated 12/08 Patient improving okay to transfer out of the ICU Continue BiPAP Follow cardiology input De-escalate antibiotics DVT GI prophylaxis Continue Eliquis May benefit from wound care eval, chronic lymphedema KADE SANCHEZ MD Dec 09, 2021 09:18
[2021-12-09] MEDS: LACTOBACILLUS RHAMNOSUS GG 1 CAPSULE. PO SCH ×2 (09:40→20:39)
[2021-12-09] MEDS: DOCUSATE SODIUM 100 MG CAPSULE. PO SCH (09:40)
[2021-12-09] MEDS: POTASSIUM CHLORIDE 20 MEQ TABLET.ER. PO SCH (09:41)
[2021-12-09] MEDS: DOXYCYCLINE HYCLATE 100 MG TABLET PO SCH ×2 (09:41→20:39)
[2021-12-09] MEDS: FUROSEMIDE 100 MG/10 ML VIAL. IVP SCH ×2 (09:41→13:37)
[2021-12-09] MEDS: APIXABAN 5 MG TABLET. PO SCH ×2 (09:41→20:39)
[2021-12-09 11:45] VITALS: BP 123/57
[2021-12-09] MEDS ORDERED: POTASSIUM CHLORIDE 20 MEQ TABLET.ER. PO ONE (11:45)
--- NOTE | 2021-12-09 12:03 | PDOC ---
RAJAT CASTELLANO LOG CHIPPER OPERATOR 12/09/21 1203: CARDIO Progress Notes Date and Time Date of Service 12/09/21 Time of Evaluation 1200 Subjective Subjective: No Chest Pain, No Palpitations, Other (breathing improved ) Vitals Vitals Vital Signs Date Time Temp Pulse Resp B/P (MAP) Pulse Ox O2 Delivery O2 Flow Rate FiO2 12/09/21 11:45 97.5 93 18 123/57 (79) 96 BiPAP/CPAP 97.5 12/09/21 08:00 6.0 Weight Weight [ ] Input and Output Intake and Output Intake and Output 12/09/21 07:00 Intake Total 2450 ml Output Total 7000 ml Balance -4550 ml Intake Oral 2450 ml Output Urine Total 7000 ml Laboratory Labs Laboratory Tests Test 12/08/21 16:45 12/08/21 20:56 12/09/21 03:05 12/09/21 07:49 Glucose (Fingerstick) 123 mg/dL (70-99) 149 mg/dL (70-99) 124 mg/dL (70-99) Sodium Level 138 mmol/L (136-145) Potassium Level 3.4 mmol/L (3.5-5.1) Chloride Level 94 mmol/L (98-107) Carbon Dioxide Level 44 mmol/L (21-32) Anion Gap 0 (6-14) Blood Urea Nitrogen 13 mg/dL (8-26) Creatinine 0.7 mg/dL (0.7-1.3) Estimated GFR (Cockcroft-Gault) 117.1 Glucose Level 141 mg/dL (70-99) Calcium Level 7.8 mg/dL (8.5-10.1) Test 12/09/21 11:35 Glucose (Fingerstick) 156 mg/dL (70-99) Microbiology Micro Microbiology 12/03/21 Blood Culture - Final, Complete NO GROWTH AFTER 5 DAYS Physical Exam HEENT: Neck Supple W Full Motion Chest: Symmetric LUNGS: Other (diminished ) Heart: irregularly irregular (rate 120 presently ) Abdomen: Soft N/T, Other (obese) Extremities: Other (2+ bilateral LE pitting edema) Neurology: alert, oriented, follow commands Assessment Assessment 1. Acute on chronic respiratory failure, AECOPD, CHF. 2. Acute on chronic diastolic CHF; echo 08/19 with preserved LV systolic function. improved s/p IV diuresis 3. PAFIB. Rate intermittently elevated. 4. DM2 with hypoglycemic reaction: per PCP 5. Hypertension; controlled 6. HLP 7. BALTA Recommendations Continue Lasix Check Mg and replace as warranted Rate intermittently elevatedl- will increase Cardizem Continue Eliquis for stroke prophylaxis. Secondary prevention measures BiPAP PRN Ongoing lung optimization, Continue antibiotic therapy Outpatient ischemic evaluation Justicifation of Admission Dx: Justifications for Admission: Justification of Admission Dx: Yes Respiratory Failure: Severe Resp Distress JENNIFFER ROTHMAN MD 12/09/21 1512: CARDIO Progress Notes Assessment Assessment Patient seen and examined. Agree with MANAGER OF SUSTAINABILITY's assessment and plan. Acute on chronic diastolic heart failure better compensated. AF - Agree with increasing Cardizem dose for better control of heart rate Continue Eliquis for stroke prophylaxis RAJAT CASTELLANO APRN Dec 09, 2021 12:03 JENNIFFER ROTHMAN MD Dec 09, 2021 15:12
[2021-12-09 14:22] VITALS: BP 125/73
[2021-12-09] MEDS ORDERED: dilTIAZem HCL 30 MG TABLET PO ONE (15:15)
[2021-12-09 19:26] VITALS: BP 127/82
[2021-12-09 22:08] VITALS: BP 144/81
[2021-12-10 02:25] VITALS: BP 127/85
[2021-12-10] MEDS: PANTOPRAZOLE 40 MG TABLET.DR. PO SCH (05:48)
[2021-12-10] MEDS: IPRATRPIUM/ALBUTEROL 0.5/2.5MG 3 ML NEBU. NEB SCH ×4 (07:12→19:08)
[2021-12-10 07:29] VITALS: BP 127/74
[2021-12-10] MEDS: INSULIN LISPRO 300 UNITS/3 ML VIAL. SQ SCH ×3 (08:00→17:00)
[2021-12-10] MEDS: POTASSIUM CHLORIDE 20 MEQ TABLET.ER. PO SCH (08:11)
[2021-12-10] MEDS: MAGNESIUM OXIDE 400 MG TABLET PO SCH (08:12)
[2021-12-10] MEDS: APIXABAN 5 MG TABLET. PO SCH ×2 (08:12→20:51)
[2021-12-10] MEDS: DOCUSATE SODIUM 100 MG CAPSULE. PO SCH (08:12)
[2021-12-10] MEDS: LACTOBACILLUS RHAMNOSUS GG 1 CAPSULE. PO SCH ×2 (08:12→20:51)
[2021-12-10] MEDS: DOXYCYCLINE HYCLATE 100 MG TABLET PO SCH (08:13)
[2021-12-10] MEDS: FUROSEMIDE 100 MG/10 ML VIAL. IVP SCH ×2 (08:13→14:01)
--- NOTE | 2021-12-10 08:34 | PDOC ---
PULMONARY PROGRESS NOTES DATE: 12/10/21 TIME: 08:34 Subjective feels better off bipap Vitals Vital Signs Date Time Temp Pulse Resp B/P (MAP) Pulse Ox O2 Delivery O2 Flow Rate FiO2 12/10/21 08:12 96 127/74 12/10/21 07:29 97.9 24 95 BiPAP/CPAP 97.9 12/09/21 20:00 6.0 ROS: No Nausea, No Chest Pain, No Abdominal Pain, No Increase Cough General: Alert, No acute distress HEENT: Other (nc at perrl bipap mask on ) Lungs: Clear, Other (Decreased breath sounds bilaterally) Cardiovascular: S1, S2 Abdomen: Soft, Non-tender Neuro Exam: Alert Extremities: Other (3+ pitting edema) Skin: Warm Labs Laboratory Tests Test 12/08/21 11:27 12/08/21 16:45 12/08/21 20:56 12/09/21 03:05 Glucose (Fingerstick) 112 mg/dL (70-99) 123 mg/dL (70-99) 149 mg/dL (70-99) Sodium Level 138 mmol/L (136-145) Potassium Level 3.4 mmol/L (3.5-5.1) Chloride Level 94 mmol/L (98-107) Carbon Dioxide Level 44 mmol/L (21-32) Anion Gap 0 (6-14) Blood Urea Nitrogen 13 mg/dL (8-26) Creatinine 0.7 mg/dL (0.7-1.3) Estimated GFR (Cockcroft-Gault) 117.1 Glucose Level 141 mg/dL (70-99) Calcium Level 7.8 mg/dL (8.5-10.1) Magnesium Level 2.0 mg/dL (1.8-2.4) Test 12/09/21 07:49 12/09/21 11:35 12/09/21 16:25 12/09/21 20:29 Glucose (Fingerstick) 124 mg/dL (70-99) 156 mg/dL (70-99) 116 mg/dL (70-99) 153 mg/dL (70-99) Test 12/10/21 07:34 Glucose (Fingerstick) 131 mg/dL (70-99) Laboratory Tests Test 12/09/21 11:35 12/09/21 16:25 12/09/21 20:29 12/10/21 07:34 Glucose (Fingerstick) 156 mg/dL (70-99) 116 mg/dL (70-99) 153 mg/dL (70-99) 131 mg/dL (70-99) Medications Active Scripts Medications Dose Route/Sig Max Daily Dose Days Date Category Furosemide 40 Mg Tablet 3 Tab PO DAILY 12/03/21 Reported Prednisone 20 Mg Tablet 1 Tab PO DAILY 5 09/30/21 Rx Eliquis (Apixaban) 5 Mg Tablet 5 Mg PO BID 30 09/30/21 Rx Diltiazem 24Hr Cd (Diltiazem HCl) 240 Mg Cap.er.24h 240 Mg PO DAILY 30 09/30/21 Rx Advair 500-50 Diskus (Fluticasone/Salmeterol) 1 Each Disk.w.dev 1 Puff INH BID 09/24/21 Reported Albuterol Sulfate Neb Soln (Albuterol Sulfate) 2.5 Mg/3 Ml Vial.neb 2.5 Mg NEB PRN Q4-6HRS PRN 06/12/21 Reported Glyxambi 25 mg-5 mg Tablet (Empagliflozin/Linagliptin) 1 Each Tablet 1 Each PO DAILY 01/03/21 Reported [Albuterol Sulfate] 2.5 MG/3 ML Nebu 2.5 Mg NEB PRN Q2HR PRN 09/26/14 Rx Metformin Hcl Er (Metformin Hcl) 500 Mg Tab.er.24 500 Mg PO BID 11/26/13 Reported Lisinopril 5 Mg Tablet 10 Mg PO DAILY 11/26/13 Reported Glimepiride 4 Mg Tablet 4 Mg PO BID 11/26/13 Reported Spiriva (Tiotropium [place]) 18 Mcg Cap.w.dev 18 Mcg IH DAILY 11/26/13 Reported Impression . 1. Acute on chronic hypoxic and hypercapnic respiratory failure secondary to multifactorial etiologies including a combination of acute on chronic right heart failure, AECOPD and Afib with RVR 2. Metabolic toxic encephalopathy 3. The patient with underlying severe chronic obstructive pulmonary disease and now comes in with worsening respiratory failure. Acute on chronic obstructive pulmonary disease exacerbation is another trigger. 4. The patient with obesity hypoventilation syndrome and chronic cor pulmonale. On home oxygen at 6 liters and BiPAP at nighttime. 5. Possible sepsis 6. Atrial fibrillation with rapid ventricular response, also contributing to heart failure. 7. Fully vaccinated for COVID. An influenza screen and COVID is negative. 8. Abnormal chest x-ray consistent with congestive heart failure. Plan . 12/10 d/w case mangement will, pt wishes to go home with d/w dr Nelson Continue current BiPAP settings outpt [facility] Long-term prognosis is poor DVT prophylaxis Continue KADE Farrell MD Dec 10, 2021 08:34
[2021-12-10] MEDS: POLYETHYLENE GLYCOL 3350 17 GM PACKET. PO SCH (09:00)
[2021-12-10 11:00] VITALS: BP 127/73
--- NOTE | 2021-12-10 12:00 | PDOC ---
[facility] PROGRESS NOTE Date of Service DOS: DATE: 12/10/21 TIME: 11:58 Chief Complaint Chief Complaint Sepsis Acute hypoxic/hypercapnic respiratory failure requiring BiPAP support Right lower lobe pneumonia, possible gram-negative organisms possible aspiration Hemodynamic instability, possible septic shock A. fib RVR Acute electrolyte derangementhyponatremia, likely hypervolemic Acute on chronic respiratory acidosis Lactic acidemia Elevated BNP suggestive of volume overload History of COPD History of diabetes mellitus type 2 History of tobacco misuse Refractory hypoglycemia related to sulfonylurea use - can stop d5 today Continue empiric IV antibiotics Pulmonology consult for O2 management Cardiology consult for atrial fibrillation Pending blood and sputum cultures Pending urine Legionella antigen and MRSA screen Continue telemetry monitoring Cardiology consult R ISS and Accu-Cheks Lovenox for DVT prophylaxis Protonix GI prophylaxis ADA diet CODE STATUS assumed full code Discussed with RN and SW Disposition continue ICU care DPOA: Kailee Pelayo History of Present Illness History of Present Illness 56-year-old male with past medical history of CHF, COPD on 6 L home O2, diabetes mellitus 2 Who comes in with shortness of breath for the past several weeks. The past few days has worsened to the point where he needed to come to the ED for further evaluation. Patient is on torsemide at home for his CHF. Patient currently denies any chest pain or fevers or cough or body aches or dysuria or hematuria or abdominal pain or diarrhea. Glucose normalizing. reveiwed his dry weight is around 255 pounds. 12/09, no stool, miralax and colace given yesterdya, change to BID miralax still on BIPAP, Fi02 40%, start PT and OT, Vitals/I&O Vitals/I&O: Vital Signs Date Time Temp Pulse Resp B/P (MAP) Pulse Ox O2 Delivery O2 Flow Rate FiO2 12/10/21 11:47 95 BiPAP/CPAP 12/10/21 11:00 97.9 101 22 127/73 (91) 5.0 97.9 I & O 12/09/21 12/09/21 12/10/21 15:00 23:00 07:00 Intake Total 240 ml 1050 ml 0 ml Output Total 2850 ml 1850 ml 1200 ml Balance -2610 ml -800 ml -1200 ml Physical Exam General: Alert, Oriented X3, mild distress Heart: Regular rate, Other (Irregularly irregular) Lungs: Clear, Other (Decreased breath sounds bilaterally) Abdomen: Normal bowel sounds (slower than yesterday, still normal range, ), Soft, No tenderness, No hepatosplenomegaly (to obese to tell), Other (some ) Extremities: No cyanosis, Other (3-4+ bilateral LE pitting edema) Skin: No rashes, Other (tinea pedis bilaterally) Labs Labs: Laboratory Tests Test 12/09/21 16:25 12/09/21 20:29 12/10/21 07:34 12/10/21 11:26 Glucose (Fingerstick) 116 mg/dL (70-99) 153 mg/dL (70-99) 131 mg/dL (70-99) 128 mg/dL (70-99) Assessment and Plan Assessmemt and Plan Problems Medical Problems: (1) Atrial fibrillation with RVR Status: Acute (2) CHF exacerbation Status: Acute (3) COPD exacerbation Status: Acute (4) Pneumonia Status: Acute Comment Review of Relevant I have reviewed the following items wade (where applicable) has been applied. Medications: Current Medications Medications (Trade) Dose Ordered Sig/Theresa Route PRN Reason Start Time Stop Time Status Last Admin Dose Admin Diltiazem HCl (Cardizem) 60 mg 1X ONCE PO 12/09/21 15:15 12/09/21 15:16 DC 12/09/21 15:15 Diltiazem HCl (Cardizem 24hr Cd) 180 mg DAILY PO 12/10/21 09:00 12/10/21 08:12 Justifications for Admission Other Justification Acute hypoxemic respiratory failure WAYLON LONG MD Dec 10, 2021 12:00
--- NOTE | 2021-12-10 12:54 | PDOC ---
RAJAT CASTELLANO SCULLION CHIEF 12/10/21 1254: CARDIO Progress Notes Date and Time Date of Service 12/10/21 Time of Evaluation 1250 Subjective Subjective: No Chest Pain, No Palpitations, Other (breathing improved- feeling better today. Was off BiPAP) Vitals Vitals Vital Signs Date Time Temp Pulse Resp B/P (MAP) Pulse Ox O2 Delivery O2 Flow Rate FiO2 12/10/21 11:47 95 BiPAP/CPAP 12/10/21 11:00 97.9 101 22 127/73 (91) 5.0 97.9 Weight Weight [ ] Input and Output Intake and Output Intake and Output 12/10/21 07:00 Intake Total 1290 ml Output Total 5900 ml Balance -4610 ml Intake Oral 1290 ml Output Urine Total 5900 ml # Bowel Movements 1 Laboratory Labs Laboratory Tests Test 12/09/21 16:25 12/09/21 20:29 12/10/21 07:34 12/10/21 11:26 Glucose (Fingerstick) 116 mg/dL (70-99) 153 mg/dL (70-99) 131 mg/dL (70-99) 128 mg/dL (70-99) Microbiology Micro Microbiology 12/03/21 Blood Culture - Final, Complete NO GROWTH AFTER 5 DAYS Physical Exam HEENT: Neck Supple W Full Motion Chest: Symmetric LUNGS: Other (diminished ) Heart: irregularly irregular (rate near 95 ) Abdomen: Soft N/T, Other (obese) Extremities: Other (1-2+ bilateral LE pitting edema) Neurology: alert, oriented, follow commands Assessment Assessment 1. Acute on chronic respiratory failure, AECOPD, CHF. 2. Acute on chronic diastolic CHF; echo 08/19 with preserved LV systolic function. improved s/p IV diuresis. Has had significant UOP 3. PAFIB. Rate intermittently elevated. 4. DM2 with hypoglycemic reaction: per PCP 5. Hypertension; controlled 6. HLP 7. BALTA Recommendations Continue Lasix Cardizem for rate control Continue Eliquis for stroke prophylaxis. Secondary prevention measures BiPAP PRN Ongoing lung optimization, Continue antibiotic therapy Outpatient ischemic evaluation Justicifation of Admission Dx: Justifications for Admission: Justification of Admission Dx: Yes Respiratory Failure: Severe Resp Distress JENNIFFER ROTHMAN MD 12/10/21 4192: CARDIO Progress Notes Assessment Assessment Patient seen and examined. Agree with GUIDEMAN's assessment and plan. Acute on chronic diastolic heart failure much better compensated. Atrial fibrillation rate better controlled Continue Eliquis for stroke prophylaxis RAJAT CASTELLANO APRN Dec 10, 2021 12:54 JENNIFFER ROTHMAN MD Dec 10, 2021 17:32
[2021-12-10 15:00] VITALS: BP 145/86
[2021-12-10 16:16] LABS: CALCIUM 8.1 mg/dL (8.5-10.1); CREATININE 0.9 mg/dL (0.7-1.3); GFR 87.6; POTASSIUM 3.7 mmol/L (3.5-5.1)
[2021-12-10 19:00] VITALS: BP 157/94
[2021-12-10 23:00] VITALS: BP 111/71
[2021-12-11] VITALS (7 sets, daily range): BP systolic 117–140; BP diastolic 73–84
[2021-12-11] MEDS: PANTOPRAZOLE 40 MG TABLET.DR. PO SCH (06:31)
[2021-12-11] MEDS: IPRATRPIUM/ALBUTEROL 0.5/2.5MG 3 ML NEBU. NEB SCH ×4 (07:17→20:33)
[2021-12-11] MEDS: LACTOBACILLUS RHAMNOSUS GG 1 CAPSULE. PO SCH ×2 (07:59→21:15)
[2021-12-11] MEDS: APIXABAN 5 MG TABLET. PO SCH ×2 (07:59→21:16)
[2021-12-11] MEDS: POTASSIUM CHLORIDE 20 MEQ TABLET.ER. PO SCH (07:59)
[2021-12-11] MEDS: MAGNESIUM OXIDE 400 MG TABLET PO SCH (08:00)
[2021-12-11] MEDS: INSULIN LISPRO 300 UNITS/3 ML VIAL. SQ SCH ×3 (08:00→17:00)
[2021-12-11] MEDS: FUROSEMIDE 100 MG/10 ML VIAL. IVP SCH ×2 (08:00→14:12)
[2021-12-11] MEDS: DOCUSATE SODIUM 100 MG CAPSULE. PO SCH (08:01)
[2021-12-11] MEDS: POLYETHYLENE GLYCOL 3350 17 GM PACKET. PO SCH (08:01)
--- NOTE | 2021-12-11 08:39 | PDOC ---
PULMONARY PROGRESS NOTES DATE: 12/11/21 TIME: 08:39 Subjective feels better off bipap Vitals Vital Signs Date Time Temp Pulse Resp B/P (MAP) Pulse Ox O2 Delivery O2 Flow Rate FiO2 12/11/21 07:59 92 133/75 12/11/21 07:19 96 BiPAP/CPAP 12/11/21 02:50 98.2 30 98.2 12/10/21 23:00 5.5 ROS: No Nausea, No Chest Pain, No Abdominal Pain, No Increase Cough General: Alert, No acute distress HEENT: Other (nc at perrl bipap mask on ) Lungs: Clear, Other (Decreased breath sounds bilaterally) Cardiovascular: S1, S2 Abdomen: Soft, Non-tender Neuro Exam: Alert Extremities: Other (3+ pitting edema) Skin: Warm Labs Laboratory Tests Test 12/09/21 11:35 12/09/21 16:25 12/09/21 20:29 12/10/21 07:34 Glucose (Fingerstick) 156 mg/dL (70-99) 116 mg/dL (70-99) 153 mg/dL (70-99) 131 mg/dL (70-99) Test 12/10/21 11:26 12/10/21 13:50 12/10/21 16:01 12/10/21 19:52 Glucose (Fingerstick) 128 mg/dL (70-99) 149 mg/dL (70-99) 198 mg/dL (70-99) Sodium Level 137 mmol/L (136-145) Potassium Level 3.7 mmol/L (3.5-5.1) Chloride Level 94 mmol/L (98-107) Carbon Dioxide Level 42 mmol/L (21-32) Anion Gap 1 (6-14) Blood Urea Nitrogen 16 mg/dL (8-26) Creatinine 0.9 mg/dL (0.7-1.3) Estimated GFR (Cockcroft-Gault) 87.6 Glucose Level 157 mg/dL (70-99) Calcium Level 8.1 mg/dL (8.5-10.1) Magnesium Level 2.0 mg/dL (1.8-2.4) Test 12/11/21 07:42 Glucose (Fingerstick) 124 mg/dL (70-99) Laboratory Tests Test 12/10/21 11:26 12/10/21 13:50 12/10/21 16:01 12/10/21 19:52 Glucose (Fingerstick) 128 mg/dL (70-99) 149 mg/dL (70-99) 198 mg/dL (70-99) Sodium Level 137 mmol/L (136-145) Potassium Level 3.7 mmol/L (3.5-5.1) Chloride Level 94 mmol/L (98-107) Carbon Dioxide Level 42 mmol/L (21-32) Anion Gap 1 (6-14) Blood Urea Nitrogen 16 mg/dL (8-26) Creatinine 0.9 mg/dL (0.7-1.3) Estimated GFR (Cockcroft-Gault) 87.6 Glucose Level 157 mg/dL (70-99) Calcium Level 8.1 mg/dL (8.5-10.1) Magnesium Level 2.0 mg/dL (1.8-2.4) Test 12/11/21 07:42 Glucose (Fingerstick) 124 mg/dL (70-99) Medications Active Scripts Medications Dose Route/Sig Max Daily Dose Days Date Category Furosemide 40 Mg Tablet 3 Tab PO DAILY 12/03/21 Reported Prednisone 20 Mg Tablet 1 Tab PO DAILY 5 09/30/21 Rx Eliquis (Apixaban) 5 Mg Tablet 5 Mg PO BID 30 09/30/21 Rx Diltiazem 24Hr Cd (Diltiazem HCl) 240 Mg Cap.er.24h 240 Mg PO DAILY 30 09/30/21 Rx Advair 500-50 Diskus (Fluticasone/Salmeterol) 1 Each Disk.w.dev 1 Puff INH BID 09/24/21 Reported Albuterol Sulfate Neb Soln (Albuterol Sulfate) 2.5 Mg/3 Ml Vial.neb 2.5 Mg NEB PRN Q4-6HRS PRN 06/12/21 Reported Glyxambi 25 mg-5 mg Tablet (Empagliflozin/Linagliptin) 1 Each Tablet 1 Each PO DAILY 01/03/21 Reported [Albuterol Sulfate] 2.5 MG/3 ML Nebu 2.5 Mg NEB PRN Q2HR PRN 09/26/14 Rx Metformin Hcl Er (Metformin Hcl) 500 Mg Tab.er.24 500 Mg PO BID 11/26/13 Reported Lisinopril 5 Mg Tablet 10 Mg PO DAILY 11/26/13 Reported Glimepiride 4 Mg Tablet 4 Mg PO BID 11/26/13 Reported Spiriva (Tiotropium [place]) 18 Mcg Cap.w.dev 18 Mcg IH DAILY 11/26/13 Reported Impression . 1. Acute on chronic hypoxic and hypercapnic respiratory failure secondary to multifactorial etiologies including a combination of acute on chronic right heart failure, AECOPD and Afib with RVR 2. Metabolic toxic encephalopathy 3. The patient with underlying severe chronic obstructive pulmonary disease and now comes in with worsening respiratory failure. Acute on chronic obstructive pulmonary disease exacerbation is another trigger. 4. The patient with obesity hypoventilation syndrome and chronic cor pulmonale. On home oxygen at 6 liters and BiPAP at nighttime. 5. Possible sepsis 6. Atrial fibrillation with rapid ventricular response, also contributing to heart failure. 7. Fully vaccinated for COVID. An influenza screen and COVID is negative. 8. Abnormal chest x-ray consistent with congestive heart failure. Plan . 12/10 d/w case mangement will, pt wishes to go home with d/w dr Nelson Continue current BiPAP settings outpt [facility] Long-term prognosis is poor DVT prophylaxis Continue KADE Farrell MD Dec 11, 2021 08:39
--- NOTE | 2021-12-11 11:17 | PDOC ---
RAJAT CASTELLANO BLANKING MACHINE OPERATOR 12/11/21 1116: CARDIO Progress Notes Date and Time Date of Service 12/11/21 Time of Evaluation 1115 Subjective Subjective: No Chest Pain, No Palpitations, Other (breathing improved- feeling better today. Was off BiPAP) Vitals Vitals Vital Signs Date Time Temp Pulse Resp B/P (MAP) Pulse Ox O2 Delivery O2 Flow Rate FiO2 12/11/21 08:00 Nasal Cannula 8.0 12/11/21 07:59 92 133/75 12/11/21 07:19 96 12/11/21 07:00 97.6 20 97.6 Weight Weight [ ] Input and Output Intake and Output Intake and Output 12/11/21 07:00 Intake Total 1800 ml Output Total 4000 ml Balance -2200 ml Intake Oral 1800 ml Output Urine Total 3900 ml Stool Total 100 ml Laboratory Labs Laboratory Tests Test 12/10/21 11:26 12/10/21 13:50 12/10/21 16:01 12/10/21 19:52 Glucose (Fingerstick) 128 mg/dL (70-99) 149 mg/dL (70-99) 198 mg/dL (70-99) Sodium Level 137 mmol/L (136-145) Potassium Level 3.7 mmol/L (3.5-5.1) Chloride Level 94 mmol/L (98-107) Carbon Dioxide Level 42 mmol/L (21-32) Anion Gap 1 (6-14) Blood Urea Nitrogen 16 mg/dL (8-26) Creatinine 0.9 mg/dL (0.7-1.3) Estimated GFR (Cockcroft-Gault) 87.6 Glucose Level 157 mg/dL (70-99) Calcium Level 8.1 mg/dL (8.5-10.1) Magnesium Level 2.0 mg/dL (1.8-2.4) Test 12/11/21 07:42 Glucose (Fingerstick) 124 mg/dL (70-99) Microbiology Micro Microbiology 12/03/21 Blood Culture - Final, Complete NO GROWTH AFTER 5 DAYS Physical Exam HEENT: Neck Supple W Full Motion Chest: Symmetric LUNGS: Other (diminished ) Heart: irregularly irregular (rate near 95 ) Abdomen: Soft N/T, Other (obese) Extremities: Other (1+ bilateral LE pitting edema) Neurology: alert, oriented, follow commands Assessment Assessment 1. Acute on chronic respiratory failure, AECOPD, CHF, cor pulmonale 2. Acute on chronic diastolic CHF; echo 08/19 with preserved LV systolic function. improved s/p IV diuresis. 3. PAFIB; rate mostly controlled 4. DM2 with hypoglycemic reaction: per PCP 5. Hypertension; controlled 6. HLP 7. BALTA, obesity hypoventilation syndrome Recommendations Continue Lasix Cardizem for rate control Continue Eliquis for stroke prophylaxis. Secondary prevention measures BiPAP PRN Ongoing lung optimization, Continue antibiotic therapy Our office will arrange for outpatient right and left heart catheterization and follow up in our office with Dr. Crawford. Supportive care Justicifation of Admission Dx: Justifications for Admission: Justification of Admission Dx: Yes Respiratory Failure: Severe Resp Distress JENNIFFER CRAWFORD MD 12/11/212116: CARDIO Progress Notes Assessment Assessment Patient seen and examined. Agree with BLACKJACK PIT BOSS's assessment and plan. Acute on chronic diastolic heart failure much better compensated. Atrial fibrillation rate better controlled Continue Eliquis for stroke prophylaxis Plan for right and left heart cath as outpatient - follow up as scheduled RAJAT CASTELLANO APRN Dec 11, 2021 11:16 JENNIFFER CRAWFORD MD Dec 11, 2021 21:17
--- NOTE | 2021-12-11 14:45 | PDOC ---
[facility] PROGRESS NOTE Date of Service DOS: DATE: 12/11/21 TIME: 14:44 Chief Complaint Chief Complaint Sepsis Acute hypoxic/hypercapnic respiratory failure requiring BiPAP support Right lower lobe pneumonia, possible gram-negative organisms possible aspiration Hemodynamic instability, possible septic shock A. fib RVR Acute electrolyte derangementhyponatremia, likely hypervolemic Acute on chronic respiratory acidosis Lactic acidemia Elevated BNP suggestive of volume overload History of COPD History of diabetes mellitus type 2 History of tobacco misuse Refractory hypoglycemia related to sulfonylurea use - can stop d5 today History of Present Illness History of Present Illness 56-year-old male with past medical history of CHF, COPD on 6 L home O2, diabetes mellitus 2 Who comes in with shortness of breath for the past several weeks. The past few days has worsened to the point where he needed to come to the ED for further evaluation. Patient is on torsemide at home for his CHF. Patient currently denies any chest pain or fevers or cough or body aches or dysuria or hematuria or abdominal pain or diarrhea. Glucose normalizing. reveiwed his dry weight is around 255 pounds. 12/09, no stool, miralax and colace given yesterdya, change to BID miralax still on BIPAP, Fi02 40%, start PT and OT, 12/10, he doesnt want to go to rehab off BIPAP this afternoon, looks better, has scrotol edema, and redness, is powdered, I asked him to try to stand and walk to move the fluid, try to DC soon Vitals/I&O Vitals/I&O: Vital Signs Date Time Temp Pulse Resp B/P (MAP) Pulse Ox O2 Delivery O2 Flow Rate FiO2 12/11/21 14:25 98.2 84 24 117/74 (88) 92 Nasal Cannula 8.0 98.2 I & O 12/10/21 12/10/21 12/11/21 15:00 23:00 07:00 Intake Total 1100 ml 700 ml 0 ml Output Total 2100 ml 1375 ml 525 ml Balance -1000 ml -675 ml -525 ml Physical Exam General: Alert, Oriented X3, mild distress Heart: Regular rate, Other (Irregularly irregular) Lungs: Clear, Other (Decreased breath sounds bilaterally) Abdomen: Normal bowel sounds (slower than yesterday, still normal range, ), Soft, No tenderness, No hepatosplenomegaly (to obese to tell), Other (some ) Extremities: No cyanosis, Other (3-4+ bilateral LE pitting edema) Skin: No rashes, Other (tinea pedis bilaterally) Labs Labs: Laboratory Tests Test 12/10/21 16:01 12/10/21 19:52 12/11/21 07:42 12/11/21 11:50 Glucose (Fingerstick) 149 mg/dL (70-99) 198 mg/dL (70-99) 124 mg/dL (70-99) 128 mg/dL (70-99) Assessment and Plan Assessmemt and Plan Problems Medical Problems: (1) Atrial fibrillation with RVR Status: Acute (2) CHF exacerbation Status: Acute (3) COPD exacerbation Status: Acute (4) Pneumonia Status: Acute Comment Review of Relevant I have reviewed the following items wade (where applicable) has been applied. Justifications for Admission Other Justification Acute hypoxemic respiratory failure WAYLON LONG MD Dec 11, 2021 14:45
[2021-12-11] MEDS: SENNOSIDES 8.6 MG TABLET PO PRN (21:15)
[2021-12-12 02:49] VITALS: BP 130/84
[2021-12-12 07:00] VITALS: BP 133/71
[2021-12-12] MEDS: IPRATRPIUM/ALBUTEROL 0.5/2.5MG 3 ML NEBU. NEB SCH ×4 (08:00→17:54)
[2021-12-12] MEDS: INSULIN LISPRO 300 UNITS/3 ML VIAL. SQ SCH ×3 (08:00→17:00)
[2021-12-12] MEDS: MAGNESIUM OXIDE 400 MG TABLET PO SCH (08:30)
[2021-12-12] MEDS: POTASSIUM CHLORIDE 20 MEQ TABLET.ER. PO SCH (08:30)
[2021-12-12] MEDS: FUROSEMIDE 100 MG/10 ML VIAL. IVP SCH ×2 (08:30→13:33)
[2021-12-12] MEDS: PANTOPRAZOLE 40 MG TABLET.DR. PO SCH (08:30)
[2021-12-12] MEDS: LACTOBACILLUS RHAMNOSUS GG 1 CAPSULE. PO SCH ×2 (08:30→19:54)
[2021-12-12] MEDS: DOCUSATE SODIUM 100 MG CAPSULE. PO SCH (08:30)
[2021-12-12] MEDS: APIXABAN 5 MG TABLET. PO SCH ×2 (08:30→19:53)
[2021-12-12] MEDS: POLYETHYLENE GLYCOL 3350 17 GM PACKET. PO SCH (08:30)
[2021-12-12 11:00] VITALS: BP 123/95
--- NOTE | 2021-12-12 11:08 | PDOC ---
PULMONARY PROGRESS NOTES DATE: 12/12/21 TIME: 11:06 Subjective Patient remains intermittently on BiPAP. Feels better Vitals Vital Signs Date Time Temp Pulse Resp B/P (MAP) Pulse Ox O2 Delivery O2 Flow Rate FiO2 12/12/21 08:30 75 133/71 12/12/21 08:00 Nasal Cannula 6.0 12/12/21 07:00 97.1 20 96 97.1 ROS: No Nausea, No Chest Pain, No Abdominal Pain, No Increase Cough General: Alert, No acute distress HEENT: Other (nc at perrl bipap mask on ) Lungs: Clear, Other (Decreased breath sounds bilaterally) Cardiovascular: S1, S2 Abdomen: Soft, Non-tender Neuro Exam: Alert Extremities: Other (3+ pitting edema) Skin: Warm Labs Laboratory Tests Test 12/10/21 11:26 12/10/21 13:50 12/10/21 16:01 12/10/21 19:52 Glucose (Fingerstick) 128 mg/dL (70-99) 149 mg/dL (70-99) 198 mg/dL (70-99) Sodium Level 137 mmol/L (136-145) Potassium Level 3.7 mmol/L (3.5-5.1) Chloride Level 94 mmol/L (98-107) Carbon Dioxide Level 42 mmol/L (21-32) Anion Gap 1 (6-14) Blood Urea Nitrogen 16 mg/dL (8-26) Creatinine 0.9 mg/dL (0.7-1.3) Estimated GFR (Cockcroft-Gault) 87.6 Glucose Level 157 mg/dL (70-99) Calcium Level 8.1 mg/dL (8.5-10.1) Magnesium Level 2.0 mg/dL (1.8-2.4) Test 12/11/21 07:42 12/11/21 11:50 12/11/21 17:07 12/11/21 19:39 Glucose (Fingerstick) 124 mg/dL (70-99) 128 mg/dL (70-99) 120 mg/dL (70-99) 172 mg/dL (70-99) Laboratory Tests Test 12/11/21 11:50 12/11/21 17:07 12/11/21 19:39 Glucose (Fingerstick) 128 mg/dL (70-99) 120 mg/dL (70-99) 172 mg/dL (70-99) Medications Active Scripts Medications Dose Route/Sig Max Daily Dose Days Date Category Furosemide 40 Mg Tablet 3 Tab PO DAILY 12/03/21 Reported Prednisone 20 Mg Tablet 1 Tab PO DAILY 5 09/30/21 Rx Eliquis (Apixaban) 5 Mg Tablet 5 Mg PO BID 30 09/30/21 Rx Diltiazem 24Hr Cd (Diltiazem HCl) 240 Mg Cap.er.24h 240 Mg PO DAILY 30 09/30/21 Rx Advair 500-50 Diskus (Fluticasone/Salmeterol) 1 Each Disk.w.dev 1 Puff INH BID 09/24/21 Reported Albuterol Sulfate Neb Soln (Albuterol Sulfate) 2.5 Mg/3 Ml Vial.neb 2.5 Mg NEB PRN Q4-6HRS PRN 06/12/21 Reported Glyxambi 25 mg-5 mg Tablet (Empagliflozin/Linagliptin) 1 Each Tablet 1 Each PO DAILY 01/03/21 Reported [Albuterol Sulfate] 2.5 MG/3 ML Nebu 2.5 Mg NEB PRN Q2HR PRN 09/26/14 Rx Metformin Hcl Er (Metformin Hcl) 500 Mg Tab.er.24 500 Mg PO BID 11/26/13 Reported Lisinopril 5 Mg Tablet 10 Mg PO DAILY 11/26/13 Reported Glimepiride 4 Mg Tablet 4 Mg PO BID 11/26/13 Reported Spiriva (Tiotropium [place]) 18 Mcg Cap.w.dev 18 Mcg IH DAILY 11/26/13 Reported Impression . 1. Acute on chronic hypoxic and hypercapnic respiratory failure secondary to multifactorial etiologies including a combination of acute on chronic right heart failure, AECOPD and Afib with RVR 2. Metabolic toxic encephalopathy 3. The patient with underlying severe chronic obstructive pulmonary disease and now comes in with worsening respiratory failure. Acute on chronic obstructive pulmonary disease exacerbation is another trigger. 4. The patient with obesity hypoventilation syndrome and chronic cor pulmonale. On home oxygen at 6 liters and BiPAP at nighttime. 5. Possible sepsis 6. Atrial fibrillation with rapid ventricular response, also contributing to heart failure. 7. Fully vaccinated for COVID. An influenza screen and COVID is negative. 8. Abnormal chest x-ray consistent with congestive heart failure. Plan . d/w case mangement will, pt wishes to go home with HH I would prefer skilled care since he is frequently requiring BiPAP. Continue current BiPAP settings Diuresis per cardiology Long-term prognosis is poor DVT prophylaxis Continue IRAIS Lancaster MD Dec 12, 2021 11:08
--- NOTE | 2021-12-12 12:02 | PDOC ---
ULISES HOUGH HAT LACER 12/12/21 1202: CARDIO Progress Notes Date and Time Date of Service 12/12/2021 Time of Evaluation 1150 Subjective Subjective: No Chest Pain, No Palpitations, Other (SOA with activity) Vitals Vitals Vital Signs Date Time Temp Pulse Resp B/P (MAP) Pulse Ox O2 Delivery O2 Flow Rate FiO2 12/12/21 11:20 95 BiPAP/CPAP 12/12/21 11:00 97.7 112 20 123/95 (104) 97.7 12/12/21 08:00 6.0 Weight Weight [ ] Input and Output Intake and Output Intake and Output 12/12/21 07:00 Intake Total 1240 ml Output Total 3975 ml Balance -2735 ml Intake Oral 1240 ml Output Urine Total 3950 ml Stool Total 25 ml Laboratory Labs Laboratory Tests Test 12/11/21 17:07 12/11/21 19:39 Glucose (Fingerstick) 120 mg/dL (70-99) 172 mg/dL (70-99) Microbiology Micro Microbiology 12/03/21 Blood Culture - Final, Complete NO GROWTH AFTER 5 DAYS Physical Exam HEENT: Neck Supple W Full Motion Chest: Symmetric LUNGS: Other (diminished ) Heart: irregularly irregular (AFIB) Abdomen: Soft N/T, Other (obese) Extremities: Other (2+ bilateral LE pitting edema) Neurology: alert, oriented, follow commands Assessment Assessment 1. Acute on chronic respiratory failure, AECOPD, CHF, cor pulmonale 2. Acute on chronic diastolic CHF; echo 08/19 with preserved LV systolic function. improved s/p IV diuresis. 3. PAFIB; rate controlled mostly 4. DM2 with hypoglycemic reaction: per PCP 5. Hypertension; controlled 6. HLP 7. BALTA, obesity hypoventilation syndrome Recommendations Continue Lasix, BMP and Mg today Cardizem for rate control Continue Eliquis for stroke prophylaxis. Secondary prevention measures Continue bipap as warranted Ongoing lung optimization, Continue antibiotic therapy Our office will arrange for outpatient right and left heart catheterization and follow up in our office with Dr. Rothman. Supportive care Justicifation of Admission Dx: Justifications for Admission: Justification of Admission Dx: Yes Respiratory Failure: Severe Resp Distress JENNIFFER ROTHMAN MD 12/12/21 1416: CARDIO Progress Notes Assessment Assessment Patient seen and examined. Agree with AUTOMATION TECHNICIAN's assessment and plan. Acute on chronic diastolic heart failure much better compensated. Atrial fibrillation rate better controlled Continue Eliquis for stroke prophylaxis Plan for right and left heart cath as outpatient - follow up as scheduled ULISES HOUGH APRN Dec 12, 2021 12:02 JENNIFFER ROTHMAN MD Dec 12, 2021 14:16
--- NOTE | 2021-12-12 12:46 | PDOC ---
[facility] PROGRESS NOTE Date of Service DOS: DATE: 12/12/21 TIME: 12:45 Chief Complaint Chief Complaint Sepsis Acute hypoxic/hypercapnic respiratory failure requiring BiPAP support Right lower lobe pneumonia, possible gram-negative organisms possible aspiration Hemodynamic instability, possible septic shock A. fib RVR Acute electrolyte derangementhyponatremia, likely hypervolemic Acute on chronic respiratory acidosis Lactic acidemia Elevated BNP suggestive of volume overload History of COPD History of diabetes mellitus type 2 History of tobacco misuse Refractory hypoglycemia related to sulfonylurea use - can stop d5 today History of Present Illness History of Present Illness 56-year-old male with past medical history of CHF, COPD on 6 L home O2, diabetes mellitus 2 Who comes in with shortness of breath for the past several weeks. The past few days has worsened to the point where he needed to come to the ED for further evaluation. Patient is on torsemide at home for his CHF. Patient currently denies any chest pain or fevers or cough or body aches or dysuria or hematuria or abdominal pain or diarrhea. 12/12- about the smae, trying to get to skilled for rehabn, referral peinding off BIPAP PRN, looks abvout the same agatin , dyspnea with PT, Vitals/I&O Vitals/I&O: Vital Signs Date Time Temp Pulse Resp B/P (MAP) Pulse Ox O2 Delivery O2 Flow Rate FiO2 12/12/21 11:20 95 BiPAP/CPAP 12/12/21 11:00 97.7 112 20 123/95 (104) 97.7 12/12/21 08:00 6.0 l I & O 12/11/21 12/11/21 12/12/21 15:00 23:00 07:00 Intake Total 560 ml 180 ml 500 ml Output Total 1350 ml 1675 ml 950 ml Balance -790 ml -1495 ml -450 ml Physical Exam General: Alert, Oriented X3, mild distress Heart: Regular rate, Other (Irregularly irregular) Lungs: Clear, Other (Decreased breath sounds bilaterally) Abdomen: Normal bowel sounds (slower than yesterday, still normal range, ), Soft, No tenderness, No hepatosplenomegaly (to obese to tell), Other (some ) Extremities: No cyanosis, Other (3-4+ bilateral LE pitting edema) Skin: No rashes, Other (tinea pedis bilaterally) Labs Labs: Laboratory Tests Test 12/11/21 17:07 12/11/21 19:39 12/12/21 11:59 Glucose (Fingerstick) 120 mg/dL (70-99) 172 mg/dL (70-99) 132 mg/dL (70-99) Assessment and Plan Assessmemt and Plan Problems Medical Problems: (1) Atrial fibrillation with RVR Status: Acute (2) CHF exacerbation Status: Acute (3) COPD exacerbation Status: Acute (4) Pneumonia Status: Acute Comment Review of Relevant I have reviewed the following items wade (where applicable) has been applied. Justifications for Admission Other Justification Acute hypoxemic respiratory failure WAYLON LONG MD Dec 12, 2021 12:46
[2021-12-12 12:55] LABS: CALCIUM 8.2 mg/dL (8.5-10.1); CREATININE 0.8 mg/dL (0.7-1.3); GFR 100.4; MAGNESIUM 2.2 mg/dL (1.8-2.4); POTASSIUM 3.6 mmol/L (3.5-5.1)
[2021-12-12 15:00] VITALS: BP 117/74
[2021-12-12 19:00] VITALS: BP 160/69
[2021-12-12 23:00] VITALS: BP 126/78
[2021-12-13 03:00] VITALS: BP 137/78
[2021-12-13] MEDS: IPRATRPIUM/ALBUTEROL 0.5/2.5MG 3 ML NEBU. NEB SCH ×4 (06:09→20:00)
[2021-12-13 07:00] VITALS: BP 137/80
--- NOTE | 2021-12-13 07:42 | PDOC ---
PULMONARY PROGRESS NOTES DATE: 12/13/21 TIME: 07:40 Subjective on BiPAP. Feels better Vitals Vital Signs Date Time Temp Pulse Resp B/P (MAP) Pulse Ox O2 Delivery O2 Flow Rate FiO2 12/13/21 07:24 99 BiPAP/CPAP 12/13/21 03:00 97.5 72 23 137/78 (97) 97.5 12/12/21 20:00 6.0 ROS: No Nausea, No Chest Pain, No Abdominal Pain, No Increase Cough General: Alert, No acute distress HEENT: Other (nc at perrl bipap mask on ) Lungs: Clear, Other (Decreased breath sounds bilaterally) Cardiovascular: S1, S2 Abdomen: Soft, Non-tender Neuro Exam: Alert Extremities: Other (3+ pitting edema) Skin: Warm Labs Laboratory Tests Test 12/11/21 07:42 12/11/21 11:50 12/11/21 17:07 12/11/21 19:39 Glucose (Fingerstick) 124 mg/dL (70-99) 128 mg/dL (70-99) 120 mg/dL (70-99) 172 mg/dL (70-99) Test 12/12/21 11:59 12/12/21 12:37 12/12/21 16:58 12/12/21 19:15 Glucose (Fingerstick) 132 mg/dL (70-99) 119 mg/dL (70-99) 128 mg/dL (70-99) Sodium Level 139 mmol/L (136-145) Potassium Level 3.6 mmol/L (3.5-5.1) Chloride Level 96 mmol/L (98-107) Carbon Dioxide Level 40 mmol/L (21-32) Anion Gap 3 (6-14) Blood Urea Nitrogen 15 mg/dL (8-26) Creatinine 0.8 mg/dL (0.7-1.3) Estimated GFR (Cockcroft-Gault) 100.4 Glucose Level 120 mg/dL (70-99) Calcium Level 8.2 mg/dL (8.5-10.1) Magnesium Level 2.2 mg/dL (1.8-2.4) Laboratory Tests Test 12/12/21 11:59 12/12/21 12:37 12/12/21 16:58 12/12/21 19:15 Glucose (Fingerstick) 132 mg/dL (70-99) 119 mg/dL (70-99) 128 mg/dL (70-99) Sodium Level 139 mmol/L (136-145) Potassium Level 3.6 mmol/L (3.5-5.1) Chloride Level 96 mmol/L (98-107) Carbon Dioxide Level 40 mmol/L (21-32) Anion Gap 3 (6-14) Blood Urea Nitrogen 15 mg/dL (8-26) Creatinine 0.8 mg/dL (0.7-1.3) Estimated GFR (Cockcroft-Gault) 100.4 Glucose Level 120 mg/dL (70-99) Calcium Level 8.2 mg/dL (8.5-10.1) Magnesium Level 2.2 mg/dL (1.8-2.4) Medications Active Scripts Medications Dose Route/Sig Max Daily Dose Days Date Category Furosemide 40 Mg Tablet 3 Tab PO DAILY 12/03/21 Reported Prednisone 20 Mg Tablet 1 Tab PO DAILY 5 09/30/21 Rx Eliquis (Apixaban) 5 Mg Tablet 5 Mg PO BID 30 09/30/21 Rx Diltiazem 24Hr Cd (Diltiazem HCl) 240 Mg Cap.er.24h 240 Mg PO DAILY 30 09/30/21 Rx Advair 500-50 Diskus (Fluticasone/Salmeterol) 1 Each Disk.w.dev 1 Puff INH BID 09/24/21 Reported Albuterol Sulfate Neb Soln (Albuterol Sulfate) 2.5 Mg/3 Ml Vial.neb 2.5 Mg NEB PRN Q4-6HRS PRN 06/12/21 Reported Glyxambi 25 mg-5 mg Tablet (Empagliflozin/Linagliptin) 1 Each Tablet 1 Each PO DAILY 01/03/21 Reported [Albuterol Sulfate] 2.5 MG/3 ML Nebu 2.5 Mg NEB PRN Q2HR PRN 09/26/14 Rx Metformin Hcl Er (Metformin Hcl) 500 Mg Tab.er.24 500 Mg PO BID 11/26/13 Reported Lisinopril 5 Mg Tablet 10 Mg PO DAILY 11/26/13 Reported Glimepiride 4 Mg Tablet 4 Mg PO BID 11/26/13 Reported Spiriva (Tiotropium [place]) 18 Mcg Cap.w.dev 18 Mcg IH DAILY 11/26/13 Reported Impression . 1. Acute on chronic hypoxic and hypercapnic respiratory failure secondary to multifactorial etiologies including a combination of acute on chronic right heart failure, AECOPD and Afib with RVR 2. Metabolic toxic encephalopathy 3. The patient with underlying severe chronic obstructive pulmonary disease and now comes in with worsening respiratory failure. Acute on chronic obstructive pulmonary disease exacerbation is another trigger. 4. The patient with obesity hypoventilation syndrome and chronic cor pulmonale. On home oxygen at 6 liters and BiPAP at nighttime. 5. Possible sepsis 6. Atrial fibrillation with rapid ventricular response, also contributing to heart failure. 7. Fully vaccinated for COVID. An influenza screen and COVID is negative. 8. Abnormal chest x-ray consistent with congestive heart failure. Plan . 02 titration Continue current BiPAP settings Diuresis per cardiology monitor k cr Long-term prognosis is poor DVT prophylaxis Continue Eliquis need snu since he is frequently requiring BiPAP. GIBSON LYMAN MD Dec 13, 2021 07:41
[2021-12-13] MEDS: INSULIN LISPRO 300 UNITS/3 ML VIAL. SQ SCH ×3 (08:00→17:00)
[2021-12-13] MEDS: PANTOPRAZOLE 40 MG TABLET.DR. PO SCH (08:11)
[2021-12-13] MEDS: POTASSIUM CHLORIDE 20 MEQ TABLET.ER. PO SCH (08:11)
[2021-12-13] MEDS: DOCUSATE SODIUM 100 MG CAPSULE. PO SCH (08:12)
[2021-12-13] MEDS: LACTOBACILLUS RHAMNOSUS GG 1 CAPSULE. PO SCH ×2 (08:12→21:12)
[2021-12-13] MEDS: MAGNESIUM OXIDE 400 MG TABLET PO SCH (08:12)
[2021-12-13] MEDS: POLYETHYLENE GLYCOL 3350 17 GM PACKET. PO SCH ×2 (08:13→21:12)
[2021-12-13] MEDS: FUROSEMIDE 100 MG/10 ML VIAL. IVP SCH ×2 (08:14→14:09)
[2021-12-13] MEDS: APIXABAN 5 MG TABLET. PO SCH ×2 (08:41→21:12)
[2021-12-13 11:00] VITALS: BP 129/87
[2021-12-13] MEDS ORDERED: BISACODYL 10 MG SUPP.RECT. PR ONE (13:00)
--- NOTE | 2021-12-13 13:30 | PDOC ---
PROGRESS NOTES Date of Service DATE: 12/13/21 TIME: 13:27 Subjective Subjective Patient seen and examined Objective Objective Vital Signs Date Time Temp Pulse Resp B/P (MAP) Pulse Ox O2 Delivery O2 Flow Rate FiO2 12/13/21 11:30 94 BiPAP/CPAP 12/13/21 08:13 111 137/80 12/13/21 08:00 6.0 12/13/21 07:00 98.0 24 98.0 Intake and Output 12/13/21 07:00 Intake Total 820 ml Output Total 2675 ml Balance -1855 ml Intake Oral 820 ml Output Urine Total 2675 ml # Bowel Movements 1 Physical Exam Abdomen: Normal bowel sounds Heart: Other (Irregular rhythm) General: mild distress Lungs: Other (Mildly decreased breath sounds) Assessment Assessment Problems Medical Problems: (1) Atrial fibrillation with RVR Status: Acute (2) CHF exacerbation Status: Acute (3) COPD exacerbation Status: Acute (4) Pneumonia Status: Acute Acute on chronic respiratory failure, on BiPAP. AECOPD, CHF, cor pulmonale. Mildly improved today. Followed by pulmonary. Outpatient right and left heart catheterization. Acute on chronic diastolic CHF; echo 08/19 with preserved LV systolic function. improved s/p IV diuresis. PAFIB; better rate control. Continue medications. DM2 with hypoglycemic reaction: per PCP Hypertension; controlled HLP BALTA, obesity hypoventilation syndrome Comment Review of Relevant I have reviewed the following items wade (where applicable) has been applied. Labs Laboratory Tests Test 12/11/21 17:07 12/11/21 19:39 12/12/21 11:59 12/12/21 12:37 Glucose (Fingerstick) 120 mg/dL (70-99) 172 mg/dL (70-99) 132 mg/dL (70-99) Sodium Level 139 mmol/L (136-145) Potassium Level 3.6 mmol/L (3.5-5.1) Chloride Level 96 mmol/L (98-107) Carbon Dioxide Level 40 mmol/L (21-32) Anion Gap 3 (6-14) Blood Urea Nitrogen 15 mg/dL (8-26) Creatinine 0.8 mg/dL (0.7-1.3) Estimated GFR (Cockcroft-Gault) 100.4 Glucose Level 120 mg/dL (70-99) Calcium Level 8.2 mg/dL (8.5-10.1) Magnesium Level 2.2 mg/dL (1.8-2.4) Test 12/12/21 16:58 12/12/21 19:15 12/13/21 07:50 12/13/21 11:14 Glucose (Fingerstick) 119 mg/dL (70-99) 128 mg/dL (70-99) 125 mg/dL (70-99) 127 mg/dL (70-99) Laboratory Tests Test 12/12/21 16:58 12/12/21 19:15 12/13/21 07:50 12/13/21 11:14 Glucose (Fingerstick) 119 mg/dL (70-99) 128 mg/dL (70-99) 125 mg/dL (70-99) 127 mg/dL (70-99) Microbiology 12/03/21 Blood Culture - Final, Complete NO GROWTH AFTER 5 DAYS Medications Current Medications Albuterol/ Ipratropium (Duoneb) 3 ml 1X ONCE NEB Last administered on 12/03/21at 12:00; Start 12/03/21 at 12:00; Stop 12/03/21 at 12:01; Status DC Digoxin (Lanoxin) 500 mcg 1X ONCE IV Last administered on 12/03/21at 13:35; Start 12/03/21 at 13:15; Stop 12/03/21 at 13:16; Status DC Ceftriaxone Sodium (Rocephin) 1 gm 1X ONCE IVP Last administered on 12/03/21at 13:34; Start 12/03/21 at 13:15; Stop 12/03/21 at 13:18; Status DC Azithromycin 250 ml @ 250 mls/hr 1X ONCE IV Last administered on 12/03/21at 13:33; Start 12/03/21 at 13:15; Stop 12/03/21 at 14:14; Status DC Sodium Chloride 500 ml @ 500 mls/hr 1X ONCE IV Last administered on 12/03/21at 13:28; Start 12/03/21 at 13:15; Stop 12/03/21 at 14:14; Status DC Furosemide (Lasix) 60 mg 1X ONCE IVP Last administered on 12/03/21at 15:02; Start 12/03/21 at 14:00; Stop 12/03/21 at 14:01; Status DC Vancomycin HCl (Vanco Per Pharmacy) 1 each PRN DAILY PRN MC SEE COMMENTS Last administered on 12/05/21at 10:54; Start 12/03/21 at 14:30; Stop 12/06/21 at 07:19; Status DC Cefepime HCl (Maxipime) 1 gm Q8HRS IVP Last administered on 12/06/21at 05:29; Start 12/03/21 at 22:00; Stop 12/06/21 at 07:19; Status DC Doxycycline Hyclate 100 mg/ Dextrose 100 ml @ 50 mls/hr BID IV Last administered on 12/06/21at 20:59; Start 12/03/21 at 15:00; Stop 12/07/21 at 12:58; Status DC Sennosides (Senna) 17.2 mg PRN BID PRN PO CONSTIPATION Last administered on at 21:15; Start 12/03/21 at 14:30 Docusate Sodium (Colace) 100 mg PRN DAILY PRN PO HARD STOOLS; Start 12/03/21 at 14:30; Stop 12/08/21 at 13:52; Status DC Ondansetron HCl (Zofran) 4 mg PRN Q6HRS PRN IVP NAUSEA/VOMITING, 1st CHOICE; Start 12/03/21 at 14:30 Insulin Human Lispro (HumaLOG) 0-7 UNITS TIDWMEALS SQ Last administered on 12/09/21at 12:07; Start 12/03/21 at 17:00 Dextrose (Dextrose 50%-Water Syringe) 12.5 gm PRN Q15MIN PRN IV SEE COMMENTS Last administered on 12/04/21at 06:32; Start 12/03/21 at 14:30; Stop 12/04/21 at 07:05; Status DC Acetaminophen (Tylenol) 650 mg PRN Q4HRS PRN PO TEMP OVER 100.4F OR MILD PAIN; Start 12/03/21 at 14:30 Lorazepam (Ativan) 0.5 mg PRN Q6HRS PRN PO ANXIETY / AGITATION; Start 12/03/21 at 14:30 Lorazepam (Ativan Inj) 0.25 mg PRN Q4HRS PRN IV ANXIETY / AGITATION; Start 12/03/21 at 14:30 Enoxaparin Sodium (Lovenox 40mg Syringe) 40 mg Q24H SQ Last administered on 12/04/21at 13:46; Start 12/03/21 at 15:00; Stop 12/05/21 at 09:14; Status DC Pantoprazole Sodium (Protonix) 40 mg DAILYAC PO Last administered on 12/13/21at 08:11; Start 12/04/21 at 07:30 Prochlorperazine Edisylate (Compazine) 10 mg PRN Q6HRS PRN IV NAUSEA/VOMITING, 2nd CHOICE; Start 12/03/21 at 14:30 Diphenhydramine HCl (Benadryl) 25 mg PRN Q6HRS PRN IVP ITCHING; Start 12/03/21 at 14:30 Diphenhydramine HCl (Benadryl) 25 mg PRN Q6HRS PRN PO ITCHING; Start 12/03/21 at 14:30 Diphenhydramine HCl (Benadryl) 25 mg PRN QHS PRN PO INSOMNIA, 1ST CHOICE; Start 12/03/21 at 14:30 Zolpidem Tartrate (Ambien) 2.5 mg PRN QHS PRN PO INSOMNIA, 2ND CHOICE; Start 12/03/21 at 14:30 Vancomycin HCl 2 gm/Sodium Chloride 500 ml @ 250 mls/hr 1X ONCE IV Last administered on 12/03/21at 15:04; Start 12/03/21 at 15:00; Stop 12/03/21 at 16:59; Status DC Vancomycin HCl 1 gm/Sodium Chloride 250 ml @ 250 mls/hr Q8H IV Last administered on 12/05/21at 07:46; Start 12/03/21 at 23:00; Stop 12/05/21 at 10:00; Status DC Vancomycin HCl (Vancomycin Trough Level) 1 each 1X ONCE MC Last administered on 12/04/21at 14:30; Start 12/04/21 at 14:30; Stop 12/04/21 at 14:31; Status DC Digoxin (Lanoxin) 250 mcg 1X ONCE IV Last administered on 12/03/21at 19:41; Start 12/03/21 at 19:15; Stop 12/03/21 at 19:16; Status DC Digoxin (Lanoxin) 250 mcg 1X ONCE IV Last administered on 12/04/21at 00:22; Start 12/04/21 at 00:15; Stop 12/04/21 at 00:16; Status DC Sodium Chloride 500 ml @ 250 mls/hr 1X ONCE IV ; Start 12/03/21 at 23:00; Stop 12/04/21 at 00:59; Status Cancel Sodium Chloride 250 ml @ 250 mls/hr 1X ONCE IV Last administered on 12/03/21at 23:00; Start 12/03/21 at 23:00; Stop 12/03/21 at 23:59; Status DC Sodium Chloride 500 ml @ 250 mls/hr 1X ONCE IV Last administered on 12/03/21at 23:39; Start 12/03/21 at 23:30; Stop 12/04/21 at 01:29; Status DC Dextrose/Sodium Chloride 1,000 ml @ 50 mls/hr Q20H IV Last administered on 12/06/21at 05:25; Start 12/04/21 at 05:30; Stop 12/06/21 at 08:43; Status DC Dextrose (Dextrose 50%-Water Syringe) 50 gm PRN 1X PRN IV [id number] Last administered on 12/04/21at 13:09; Start 12/04/21 at 07:15 Glucagon (Glucagen) 1 mg 1X ONCE IV Last administered on 12/04/21at 09:15; Start 12/04/21 at 08:30; Stop 12/04/21 at 08:37; Status DC Apixaban (Eliquis) 5 mg BID PO Last administered on 12/13/21at 08:41; Start 12/04/21 at 21:00 Info (Anti-Coagulation Monitoring By Pharmacy) 1 each PRN DAILY PRN MC PER PROTOCOL Last administered on 12/05/21at 10:55; Start 12/04/21 at 10:15 Furosemide (Lasix) 40 mg 1X ONCE IVP Last administered on 12/04/21at 11:18; Start 12/04/21 at 11:00; Stop 12/04/21 at 11:04; Status DC Diltiazem HCl (Cardizem Iv Push) 10 mg 1X ONCE IVP Last administered on 12/04/21at 11:42; Start 12/04/21 at 11:30; Stop 12/04/21 at 11:31; Status DC Diltiazem HCl 125 mg/Sodium Chloride 125 ml @ 5 mls/hr 1X ONCE IV Last administered on 12/04/21at 11:30; Start 12/04/21 at 11:30; Stop 12/05/21 at 12:29; Status DC Methylprednisolone Sodium Succinate (SOLU-Medrol 125MG VIAL) 125 mg 1X ONCE IV Last administered on 12/04/21at 11:47; Start 12/04/21 at 11:45; Stop 12/04/21 at 11:46; Status DC Glucagon (Glucagen) 1 mg 1X ONCE IV Last administered on 12/04/21at 13:08; Start 12/04/21 at 12:45; Stop 12/04/21 at 12:46; Status DC Lactobacillus Rhamnosus (Culturelle) 1 cap BID PO Last administered on 12/13/21at 08:12; Start 12/04/21 at 21:00 Albuterol/ Ipratropium (Duoneb) 3 ml RTQID NEB Last administered on 12/13/21at 11:30; Start 12/04/21 at 16:00 Norepinephrine Bitartrate 8 mg/ Dextrose 258 ml @ 23.742 mls/ hr CONT PRN IV PER PROTOCOL; Start 12/04/21 at 18:00; Status Cancel Vancomycin HCl 1 gm/Sodium Chloride 250 ml @ 250 mls/hr Q8H IV ; Start 12/05/21 at 15:00; Status Cancel Vancomycin HCl 1 gm/Sodium Chloride 250 ml @ 250 mls/hr Q8H IV Last administered on 12/06/21at 06:26; Start 12/05/21 at 15:00; Stop 12/06/21 at 07:19; Status DC Furosemide (Lasix) 80 mg [id number] IVP Last administered on 12/05/21at 13:36; Start 12/05/21 at 09:30; Stop 12/06/21 at 09:51; Status DC Diltiazem HCl (Cardizem 24hr Cd) 120 mg DAILY PO Last administered on 12/06/21at 14:49; Start 12/05/21 at 10:00; Stop 12/06/21 at 20:58; Status DC Vancomycin HCl 1 gm/Sodium Chloride 250 ml @ 250 mls/hr Q8H IV ; Start 12/06/21 at 15:00; Stop 12/06/21 at 07:19; Status DC Furosemide (Lasix) 80 mg [id number] IVP Last administered on 12/07/21at 05:46; Start 12/06/21 at 14:00; Stop 12/07/21 at 11:44; Status DC Diltiazem HCl (Cardizem 24hr Cd) 120 mg Q24H PO Last administered on 12/09/21at 10:04; Start 12/07/21 at 11:30; Stop 12/09/21 at 15:06; Status DC Furosemide (Lasix) 80 mg [id number] IVP Last administered on 12/13/21at 08:14; Start 12/07/21 at 14:00 Magnesium Oxide (Magnesium Oxide) 400 mg DAILY PO Last administered on 12/13/21at 08:12; Start 12/08/21 at 09:00 Potassium Chloride (Klor-Con) 20 meq [id number] PO Last administered on 12/13/21at 08:11; Start 12/07/21 at 11:30 Potassium Chloride (Klor-Con) 40 meq 1X ONCE PO Last administered on 12/07/21at 13:01; Start 12/07/21 at 11:30; Stop 12/07/21 at 11:47; Status DC Doxycycline Hyclate (Vibra-Tab) 100 mg BID PO Last administered on 12/10/21at 08:13; Start 12/07/21 at 21:00; Stop 12/10/21 at 20:59; Status DC Docusate Sodium (Colace) 100 mg DAILY PO Last administered on 12/13/21at 08:12; Start 12/09/21 at 09:00 Polyethylene Glycol (miraLAX PACKET) 17 gm 1X ONCE PO Last administered on 12/08/21at 14:51; Start 12/08/21 at 15:00; Stop 12/08/21 at 15:01; Status DC Polyethylene Glycol (miraLAX PACKET) 17 gm BID PO Last administered on 12/09/21at 09:15; Start 12/09/21 at 09:15; Stop 12/10/21 at 12:18; Status DC Potassium Chloride (Klor-Con) 40 meq 1X ONCE PO Last administered on 12/09/21at 10:30; Start 12/09/21 at 11:45; Stop 12/09/21 at 11:46; Status DC Diltiazem HCl (Cardizem) 60 mg 1X ONCE PO Last administered on 12/09/21at 15:15; Start 12/09/21 at 15:15; Stop 12/09/21 at 15:16; Status DC Diltiazem HCl (Cardizem 24hr Cd) 180 mg DAILY PO Last administered on 12/13/21at 08:13; Start 12/10/21 at 09:00 Polyethylene Glycol (miraLAX PACKET) 17 gm DAILY PO Last administered on 12/13/21at 08:13; Start 12/11/21 at 09:00; Stop 12/13/21 at 12:52; Status DC Polyethylene Glycol (miraLAX PACKET) 17 gm BID PO ; Start 12/13/21 at 21:00 Bisacodyl (Dulcolax Supp) 10 mg 1X ONCE [place] ; Start 12/13/21 at 13:00; Stop 12/13/21 at 13:01; Status DC Active Scripts Active Prednisone 20 Mg Tablet 1 Tab PO DAILY 5 Days Eliquis (Apixaban) 5 Mg Tablet 5 Mg PO BID 30 Days Diltiazem 24Hr Cd (Diltiazem HCl) 240 Mg Cap.er.24h 240 Mg PO DAILY 30 Days [Albuterol Sulfate] 2.5 MG/3 ML Nebu 2.5 Mg NEB PRN Q2HR PRN Reported Furosemide 40 Mg Tablet 3 Tab PO DAILY Advair 500-50 Diskus (Fluticasone/Salmeterol) 1 Each Disk.w.dev 1 Puff INH BID Albuterol Sulfate Neb Soln (Albuterol Sulfate) 2.5 Mg/3 Ml Vial.neb 2.5 Mg NEB PRN Q4-6HRS PRN Glyxambi 25 mg-5 mg Tablet (Empagliflozin/Linagliptin) 1 Each Tablet 1 Each PO DAILY Metformin Hcl Er (Metformin Hcl) 500 Mg Tab.er.24 500 Mg PO BID Lisinopril 5 Mg Tablet 10 Mg PO DAILY Glimepiride 4 Mg Tablet 4 Mg PO BID Spiriva (Tiotropium [place]) 18 Mcg Cap.w.dev 18 Mcg IH DAILY Vitals/I & O Vital Sign - Last 24 Hours 12/12/21 12/12/21 12/12/21 12/12/21 14:53 15:00 17:54 19:00 Temp 97.3 97.9 97.3 97.9 Pulse 95 100 Resp 30 30 B/P (MAP) 117/74 (88) 160/69 (99) Pulse Ox 95 98 95 92 O2 Delivery BiPAP/CPAP BiPAP/CPAP BiPAP/CPAP Nasal Cannula O2 Flow Rate 6.0 12/12/21 12/12/21 12/12/21 12/13/21 20:00 20:00 23:00 00:00 Temp 97.4 97.4 Pulse 93 Resp 25 B/P (MAP) 126/78 (94) Pulse Ox 92 95 O2 Delivery Bi-pap BiPAP/CPAP BiPAP/CPAP O2 Flow Rate 6.0 6.0 12/13/21 12/13/21 12/13/21 12/13/21 03:00 06:08 07:00 07:24 Temp 97.5 98.0 97.5 98.0 Pulse 72 97 Resp 23 24 B/P (MAP) 137/78 (97) 137/80 (99) Pulse Ox 91 93 92 99 O2 Delivery BiPAP/CPAP BiPAP/CPAP BiPAP/CPAP BiPAP/CPAP 12/13/21 12/13/21 12/13/21 12/13/21 08:00 08:00 08:13 11:30 Pulse 111 B/P (MAP) 137/80 Pulse Ox 94 O2 Delivery Bi-pap BiPAP/CPAP O2 Flow Rate 6.0 6.0 Intake and Output 12/12/21 12/12/21 12/13/21 15:00 23:00 07:00 Intake Total 120 ml 200 ml 500 ml Output Total 1825 ml 850 ml Balance -1705 ml 200 ml -350 ml Justifications for Admission Other Justification Acute hypoxemic respiratory failure DARBY TUTTLE MD Dec 13, 2021 13:30
--- NOTE | 2021-12-13 14:17 | PDOC ---
[facility] PROGRESS NOTE Date of Service DOS: DATE: 12/13/21 TIME: 14:16 Chief Complaint Chief Complaint Sepsis Acute hypoxic/hypercapnic respiratory failure requiring BiPAP support Right lower lobe pneumonia, possible gram-negative organisms possible aspiration Hemodynamic instability, possible septic shock A. fib RVR Acute electrolyte derangementhyponatremia, likely hypervolemic Acute on chronic respiratory acidosis Lactic acidemia Elevated BNP suggestive of volume overload History of COPD History of diabetes mellitus type 2 History of tobacco misuse Refractory hypoglycemia related to sulfonylurea use - can stop d5 today History of Present Illness History of Present Illness 56-year-old male with past medical history of CHF, COPD on 6 L home O2, diabetes mellitus 2 Who comes in with shortness of breath for the past several weeks. The past few days has worsened to the point where he needed to come to the ED for further evaluation. Patient is on torsemide at home for his CHF. Patient currently denies any chest pain or fevers or cough or body aches or dysuria or hematuria or abdominal pain or diarrhea. 12/13 - - cont current OOB to chair add suppository for stool regiment, he declined enema, doulbe up the miralax off BIPAP PRN, looks better, but had a lot of trouble with dyspnea with PT, noted scrotol edema, better Vitals/I&O Vitals/I&O: Vital Signs Date Time Temp Pulse Resp B/P (MAP) Pulse Ox O2 Delivery O2 Flow Rate FiO2 12/13/21 11:30 94 BiPAP/CPAP 12/13/21 11:00 97.8 97 25 129/87 (101) 97.8 12/13/21 08:00 6.0 I & O 12/12/21 12/12/21 12/13/21 15:00 23:00 07:00 Intake Total 120 ml 200 ml 500 ml Output Total 1825 ml 850 ml Balance -1705 ml 200 ml -350 ml Physical Exam General: mild distress Heart: Other (Irregular rhythm) Lungs: Clear, Other (Decreased breath sounds bilaterally) Abdomen: Normal bowel sounds Extremities: No cyanosis, Other (3-4+ bilateral LE pitting edema) Skin: No rashes, Other (tinea pedis bilaterally) Labs Labs: Laboratory Tests Test 12/12/21 16:58 12/12/21 19:15 12/13/21 07:50 12/13/21 11:14 Glucose (Fingerstick) 119 mg/dL (70-99) 128 mg/dL (70-99) 125 mg/dL (70-99) 127 mg/dL (70-99) Assessment and Plan Assessmemt and Plan Problems Medical Problems: (1) Atrial fibrillation with RVR Status: Acute (2) CHF exacerbation Status: Acute (3) COPD exacerbation Status: Acute (4) Pneumonia Status: Acute Comment Review of Relevant I have reviewed the following items wade (where applicable) has been applied. Justifications for Admission Other Justification Acute hypoxemic respiratory failure WAYLON LNOG MD Dec 13, 2021 14:17
[2021-12-13 15:00] VITALS: BP 119/71
[2021-12-13 19:50] VITALS: BP 116/78
[2021-12-13 23:30] VITALS: BP 125/72
[2021-12-14 03:25] VITALS: BP 123/74
[2021-12-14 07:00] VITALS: BP 119/90
--- NOTE | 2021-12-14 07:42 | PDOC ---
PULMONARY PROGRESS NOTES DATE: 12/14/21 TIME: 07:41 Subjective used BiPAP overnight on home 02 6.5 lpm Feels better Vitals Vital Signs Date Time Temp Pulse Resp B/P (MAP) Pulse Ox O2 Delivery O2 Flow Rate FiO2 12/14/21 07:15 91 Nasal Cannula 6.0 12/14/21 03:25 96.9 78 22 123/74 (90) 96.9 ROS: No Nausea, No Chest Pain, No Abdominal Pain, No Increase Cough General: Alert, No acute distress HEENT: Other (nc at perrl bipap mask on ) Lungs: Clear, Other (Decreased breath sounds bilaterally) Cardiovascular: S1, S2 Abdomen: Soft, Non-tender Neuro Exam: Alert Extremities: Other (3+ pitting edema) Skin: Warm Labs Laboratory Tests Test 12/12/21 11:59 12/12/21 12:37 12/12/21 16:58 12/12/21 19:15 Glucose (Fingerstick) 132 mg/dL (70-99) 119 mg/dL (70-99) 128 mg/dL (70-99) Sodium Level 139 mmol/L (136-145) Potassium Level 3.6 mmol/L (3.5-5.1) Chloride Level 96 mmol/L (98-107) Carbon Dioxide Level 40 mmol/L (21-32) Anion Gap 3 (6-14) Blood Urea Nitrogen 15 mg/dL (8-26) Creatinine 0.8 mg/dL (0.7-1.3) Estimated GFR (Cockcroft-Gault) 100.4 Glucose Level 120 mg/dL (70-99) Calcium Level 8.2 mg/dL (8.5-10.1) Magnesium Level 2.2 mg/dL (1.8-2.4) Test 12/13/21 07:50 12/13/21 11:14 12/13/21 17:17 12/13/21 20:55 Glucose (Fingerstick) 125 mg/dL (70-99) 127 mg/dL (70-99) 142 mg/dL (70-99) 157 mg/dL (70-99) Laboratory Tests Test 12/13/21 07:50 12/13/21 11:14 12/13/21 17:17 12/13/21 20:55 Glucose (Fingerstick) 125 mg/dL (70-99) 127 mg/dL (70-99) 142 mg/dL (70-99) 157 mg/dL (70-99) Medications Active Scripts Medications Dose Route/Sig Max Daily Dose Days Date Category Furosemide 40 Mg Tablet 3 Tab PO DAILY 12/03/21 Reported Prednisone 20 Mg Tablet 1 Tab PO DAILY 5 09/30/21 Rx Eliquis (Apixaban) 5 Mg Tablet 5 Mg PO BID 30 09/30/21 Rx Diltiazem 24Hr Cd (Diltiazem HCl) 240 Mg Cap.er.24h 240 Mg PO DAILY 30 09/30/21 Rx Advair 500-50 Diskus (Fluticasone/Salmeterol) 1 Each Disk.w.dev 1 Puff INH BID 09/24/21 Reported Albuterol Sulfate Neb Soln (Albuterol Sulfate) 2.5 Mg/3 Ml Vial.neb 2.5 Mg NEB PRN Q4-6HRS PRN 06/12/21 Reported Glyxambi 25 mg-5 mg Tablet (Empagliflozin/Linagliptin) 1 Each Tablet 1 Each PO DAILY 01/03/21 Reported [Albuterol Sulfate] 2.5 MG/3 ML Nebu 2.5 Mg NEB PRN Q2HR PRN 09/26/14 Rx Metformin Hcl Er (Metformin Hcl) 500 Mg Tab.er.24 500 Mg PO BID 11/26/13 Reported Lisinopril 5 Mg Tablet 10 Mg PO DAILY 11/26/13 Reported Glimepiride 4 Mg Tablet 4 Mg PO BID 11/26/13 Reported Spiriva (Tiotropium [place]) 18 Mcg Cap.w.dev 18 Mcg IH DAILY 11/26/13 Reported Impression . 1. Acute on chronic hypoxic and hypercapnic respiratory failure secondary to multifactorial etiologies including a combination of acute on chronic right heart failure, AECOPD and Afib with RVR 2. Metabolic toxic encephalopathy 3. The patient with underlying severe chronic obstructive pulmonary disease and now comes in with worsening respiratory failure. Acute on chronic obstructive pulmonary disease exacerbation is another trigger. 4. The patient with obesity hypoventilation syndrome and chronic cor pulmonale. On home oxygen at 6 liters and BiPAP at nighttime. 5. Possible sepsis 6. Atrial fibrillation with rapid ventricular response, also contributing to heart failure. 7. Fully vaccinated for COVID. An influenza screen and COVID is negative. 8. Abnormal chest x-ray consistent with congestive heart failure. Plan . 02 titration bipap prn during day cont at night setting reviewed Diuresis per cardiology monitor k cr Long-term prognosis is poor DVT prophylaxis Continue Eliquis need snu since he is frequently requiring BiPAP. discussed w pt GIBSON LYMAN MD Dec 14, 2021 07:42
[2021-12-14] MEDS: MAGNESIUM OXIDE 400 MG TABLET PO SCH (07:51)
[2021-12-14] MEDS: POTASSIUM CHLORIDE 20 MEQ TABLET.ER. PO SCH (07:51)
[2021-12-14] MEDS: APIXABAN 5 MG TABLET. PO SCH ×2 (07:51→20:41)
[2021-12-14] MEDS: LACTOBACILLUS RHAMNOSUS GG 1 CAPSULE. PO SCH ×2 (07:52→20:41)
[2021-12-14] MEDS: DOCUSATE SODIUM 100 MG CAPSULE. PO SCH (07:52)
[2021-12-14] MEDS: PANTOPRAZOLE 40 MG TABLET.DR. PO SCH (07:52)
[2021-12-14] MEDS: POLYETHYLENE GLYCOL 3350 17 GM PACKET. PO SCH ×2 (07:52→20:04)
[2021-12-14] MEDS: FUROSEMIDE 100 MG/10 ML VIAL. IVP SCH ×2 (07:53→14:02)
[2021-12-14] MEDS: INSULIN LISPRO 300 UNITS/3 ML VIAL. SQ SCH ×3 (08:00→17:00)
[2021-12-14 11:00] VITALS: BP 121/80
[2021-12-14] MEDS: IPRATRPIUM/ALBUTEROL 0.5/2.5MG 3 ML NEBU. NEB SCH ×3 (11:44→17:55)
--- NOTE | 2021-12-14 14:09 | PDOC ---
PROGRESS NOTES Date of Service DATE: 12/14/21 TIME: 14:08 Subjective Subjective Patient seen and examined Objective Objective Vital Signs Date Time Temp Pulse Resp B/P (MAP) Pulse Ox O2 Delivery O2 Flow Rate FiO2 12/14/21 12:09 95 BiPAP/CPAP 12/14/21 11:00 97.5 95 26 121/80 (94) 97.5 12/14/21 08:00 6.0 Intake and Output 12/14/21 07:00 Intake Total 700 ml Output Total 3020 ml Balance -2320 ml Intake Oral 700 ml Output Urine Total 3020 ml # Bowel Movements 2 Physical Exam Abdomen: Normal bowel sounds Heart: Other (Irregular rhythm) General: No acute distress Lungs: Other (Mildly decreased breath sounds) Assessment Assessment Problems Medical Problems: (1) Atrial fibrillation with RVR Status: Acute (2) CHF exacerbation Status: Acute (3) COPD exacerbation Status: Acute (4) Pneumonia Status: Acute Acute on chronic respiratory failure, on BiPAP. AECOPD, CHF, cor pulmonale. Continued mild improvement. Followed by pulmonary. Outpatient right and left heart catheterization. Acute on chronic diastolic CHF; echo 08/19 with preserved LV systolic function. improved s/p IV diuresis. PAFIB; better rate control. Continue medications. DM2 with hypoglycemic reaction: per PCP Hypertension; controlled HLP BALTA, obesity hypoventilation syndrome Comment Review of Relevant I have reviewed the following items wade (where applicable) has been applied. Labs Laboratory Tests Test 12/12/21 16:58 12/12/21 19:15 12/13/21 07:50 12/13/21 11:14 Glucose (Fingerstick) 119 mg/dL (70-99) 128 mg/dL (70-99) 125 mg/dL (70-99) 127 mg/dL (70-99) Test 12/13/21 17:17 12/13/21 20:55 12/14/21 07:44 Glucose (Fingerstick) 142 mg/dL (70-99) 157 mg/dL (70-99) 119 mg/dL (70-99) Laboratory Tests Test 12/13/21 17:17 12/13/21 20:55 12/14/21 07:44 Glucose (Fingerstick) 142 mg/dL (70-99) 157 mg/dL (70-99) 119 mg/dL (70-99) Microbiology 12/03/21 Blood Culture - Final, Complete NO GROWTH AFTER 5 DAYS Medications Current Medications Albuterol/ Ipratropium (Duoneb) 3 ml 1X ONCE NEB Last administered on 12/03/21at 12:00; Start 12/03/21 at 12:00; Stop 12/03/21 at 12:01; Status DC Digoxin (Lanoxin) 500 mcg 1X ONCE IV Last administered on 12/03/21at 13:35; Start 12/03/21 at 13:15; Stop 12/03/21 at 13:16; Status DC Ceftriaxone Sodium (Rocephin) 1 gm 1X ONCE IVP Last administered on 12/03/21at 13:34; Start 12/03/21 at 13:15; Stop 12/03/21 at 13:18; Status DC Azithromycin 250 ml @ 250 mls/hr 1X ONCE IV Last administered on 12/03/21at 13:33; Start 12/03/21 at 13:15; Stop 12/03/21 at 14:14; Status DC Sodium Chloride 500 ml @ 500 mls/hr 1X ONCE IV Last administered on 12/03/21at 13:28; Start 12/03/21 at 13:15; Stop 12/03/21 at 14:14; Status DC Furosemide (Lasix) 60 mg 1X ONCE IVP Last administered on 12/03/21at 15:02; Start 12/03/21 at 14:00; Stop 12/03/21 at 14:01; Status DC Vancomycin HCl (Vanco Per Pharmacy) 1 each PRN DAILY PRN MC SEE COMMENTS Last administered on 12/05/21at 10:54; Start 12/03/21 at 14:30; Stop 12/06/21 at 07:19; Status DC Cefepime HCl (Maxipime) 1 gm Q8HRS IVP Last administered on 12/06/21at 05:29; Start 12/03/21 at 22:00; Stop 12/06/21 at 07:19; Status DC Doxycycline Hyclate 100 mg/ Dextrose 100 ml @ 50 mls/hr BID IV Last administered on 12/06/21at 20:59; Start 12/03/21 at 15:00; Stop 12/07/21 at 12:58; Status DC Sennosides (Senna) 17.2 mg PRN BID PRN PO CONSTIPATION Last administered on 11/29 02/17at 21:15; Start 12/03/21 at 14:30 Docusate Sodium (Colace) 100 mg PRN DAILY PRN PO HARD STOOLS; Start 12/03/21 at 14:30; Stop 12/08/21 at 13:52; Status DC Ondansetron HCl (Zofran) 4 mg PRN Q6HRS PRN IVP NAUSEA/VOMITING, 1st CHOICE; Start 12/03/21 at 14:30 Insulin Human Lispro (HumaLOG) 0-7 UNITS TIDWMEALS SQ Last administered on 12/09/21at 12:07; Start 12/03/21 at 17:00 Dextrose (Dextrose 50%-Water Syringe) 12.5 gm PRN Q15MIN PRN IV SEE COMMENTS Last administered on 12/04/21at 06:32; Start 12/03/21 at 14:30; Stop 12/04/21 at 07:05; Status DC Acetaminophen (Tylenol) 650 mg PRN Q4HRS PRN PO TEMP OVER 100.4F OR MILD PAIN; Start 12/03/21 at 14:30 Lorazepam (Ativan) 0.5 mg PRN Q6HRS PRN PO ANXIETY / AGITATION; Start 12/03/21 at 14:30 Lorazepam (Ativan Inj) 0.25 mg PRN Q4HRS PRN IV ANXIETY / AGITATION; Start 12/03/21 at 14:30 Enoxaparin Sodium (Lovenox 40mg Syringe) 40 mg Q24H SQ Last administered on 12/04/21at 13:46; Start 12/03/21 at 15:00; Stop 12/05/21 at 09:14; Status DC Pantoprazole Sodium (Protonix) 40 mg DAILYAC PO Last administered on 12/14/21at 07:52; Start 12/04/21 at 07:30 Prochlorperazine Edisylate (Compazine) 10 mg PRN Q6HRS PRN IV NAUSEA/VOMITING, 2nd CHOICE; Start 12/03/21 at 14:30 Diphenhydramine HCl (Benadryl) 25 mg PRN Q6HRS PRN IVP ITCHING; Start 12/03/21 at 14:30 Diphenhydramine HCl (Benadryl) 25 mg PRN Q6HRS PRN PO ITCHING; Start 12/03/21 at 14:30 Diphenhydramine HCl (Benadryl) 25 mg PRN QHS PRN PO INSOMNIA, 1ST CHOICE; Start 12/03/21 at 14:30 Zolpidem Tartrate (Ambien) 2.5 mg PRN QHS PRN PO INSOMNIA, 2ND CHOICE; Start 12/03/21 at 14:30 Vancomycin HCl 2 gm/Sodium Chloride 500 ml @ 250 mls/hr 1X ONCE IV Last administered on 12/03/21at 15:04; Start 12/03/21 at 15:00; Stop 12/03/21 at 16:59; Status DC Vancomycin HCl 1 gm/Sodium Chloride 250 ml @ 250 mls/hr Q8H IV Last administered on 12/05/21at 07:46; Start 12/03/21 at 23:00; Stop 12/05/21 at 10:00; Status DC Vancomycin HCl (Vancomycin Trough Level) 1 each 1X ONCE MC Last administered on 12/04/21at 14:30; Start 12/04/21 at 14:30; Stop 12/04/21 at 14:31; Status DC Digoxin (Lanoxin) 250 mcg 1X ONCE IV Last administered on 12/03/21at 19:41; Start 12/03/21 at 19:15; Stop 12/03/21 at 19:16; Status DC Digoxin (Lanoxin) 250 mcg 1X ONCE IV Last administered on 12/04/21at 00:22; Start 12/04/21 at 00:15; Stop 12/04/21 at 00:16; Status DC Sodium Chloride 500 ml @ 250 mls/hr 1X ONCE IV ; Start 12/03/21 at 23:00; Stop 12/04/21 at 00:59; Status Cancel Sodium Chloride 250 ml @ 250 mls/hr 1X ONCE IV Last administered on 12/03/21at 23:00; Start 12/03/21 at 23:00; Stop 12/03/21 at 23:59; Status DC Sodium Chloride 500 ml @ 250 mls/hr 1X ONCE IV Last administered on 12/03/21at 23:39; Start 12/03/21 at 23:30; Stop 12/04/21 at 01:29; Status DC Dextrose/Sodium Chloride 1,000 ml @ 50 mls/hr Q20H IV Last administered on 12/06/21at 05:25; Start 12/04/21 at 05:30; Stop 12/06/21 at 08:43; Status DC Dextrose (Dextrose 50%-Water Syringe) 50 gm PRN 1X PRN IV [id number] Last administered on 12/04/21at 13:09; Start 12/04/21 at 07:15 Glucagon (Glucagen) 1 mg 1X ONCE IV Last administered on 12/04/21at 09:15; Start 12/04/21 at 08:30; Stop 12/04/21 at 08:37; Status DC Apixaban (Eliquis) 5 mg BID PO Last administered on 12/14/21at 07:51; Start 12/04/21 at 21:00 Info (Anti-Coagulation Monitoring By Pharmacy) 1 each PRN DAILY PRN MC PER PROTOCOL Last administered on 12/05/21at 10:55; Start 12/04/21 at 10:15 Furosemide (Lasix) 40 mg 1X ONCE IVP Last administered on 12/04/21at 11:18; Start 12/04/21 at 11:00; Stop 12/04/21 at 11:04; Status DC Diltiazem HCl (Cardizem Iv Push) 10 mg 1X ONCE IVP Last administered on 12/04/21at 11:42; Start 12/04/21 at 11:30; Stop 12/04/21 at 11:31; Status DC Diltiazem HCl 125 mg/Sodium Chloride 125 ml @ 5 mls/hr 1X ONCE IV Last administered on 12/04/21at 11:30; Start 12/04/21 at 11:30; Stop 12/05/21 at 12:29; Status DC Methylprednisolone Sodium Succinate (SOLU-Medrol 125MG VIAL) 125 mg 1X ONCE IV Last administered on 12/04/21at 11:47; Start 12/04/21 at 11:45; Stop 12/04/21 at 11:46; Status DC Glucagon (Glucagen) 1 mg 1X ONCE IV Last administered on 12/04/21at 13:08; Start 12/04/21 at 12:45; Stop 12/04/21 at 12:46; Status DC Lactobacillus Rhamnosus (Culturelle) 1 cap BID PO Last administered on 12/14/21at 07:52; Start 12/04/21 at 21:00 Albuterol/ Ipratropium (Duoneb) 3 ml RTQID NEB Last administered on 12/14/21at 11:44; Start 12/04/21 at 16:00 Norepinephrine Bitartrate 8 mg/ Dextrose 258 ml @ 23.742 mls/ hr CONT PRN IV PER PROTOCOL; Start 12/04/21 at 18:00; Status Cancel Vancomycin HCl 1 gm/Sodium Chloride 250 ml @ 250 mls/hr Q8H IV ; Start 12/05/21 at 15:00; Status Cancel Vancomycin HCl 1 gm/Sodium Chloride 250 ml @ 250 mls/hr Q8H IV Last administered on 12/06/21at 06:26; Start 12/05/21 at 15:00; Stop 12/06/21 at 07:19; Status DC Furosemide (Lasix) 80 mg [id number] IVP Last administered on 12/05/21at 13:36; Start 12/05/21 at 09:30; Stop 12/06/21 at 09:51; Status DC Diltiazem HCl (Cardizem 24hr Cd) 120 mg DAILY PO Last administered on 12/06/21at 14:49; Start 12/05/21 at 10:00; Stop 12/06/21 at 20:58; Status DC Vancomycin HCl 1 gm/Sodium Chloride 250 ml @ 250 mls/hr Q8H IV ; Start 12/06/21 at 15:00; Stop 12/06/21 at 07:19; Status DC Furosemide (Lasix) 80 mg [id number] IVP Last administered on 12/07/21at 05:46; Start 12/06/21 at 14:00; Stop 12/07/21 at 11:44; Status DC Diltiazem HCl (Cardizem 24hr Cd) 120 mg Q24H PO Last administered on 12/09/21at 10:04; Start 12/07/21 at 11:30; Stop 12/09/21 at 15:06; Status DC Furosemide (Lasix) 80 mg [id number] IVP Last administered on 12/14/21at 14:02; Start 12/07/21 at 14:00 Magnesium Oxide (Magnesium Oxide) 400 mg DAILY PO Last administered on 12/14/21at 07:51; Start 12/08/21 at 09:00 Potassium Chloride (Klor-Con) 20 meq [id number] PO Last administered on 12/14/21at 07:51; Start 12/07/21 at 11:30 Potassium Chloride (Klor-Con) 40 meq 1X ONCE PO Last administered on 12/07/21at 13:01; Start 12/07/21 at 11:30; Stop 12/07/21 at 11:47; Status DC Doxycycline Hyclate (Vibra-Tab) 100 mg BID PO Last administered on 12/10/21at 08:13; Start 12/07/21 at 21:00; Stop 12/10/21 at 20:59; Status DC Docusate Sodium (Colace) 100 mg DAILY PO Last administered on 12/14/21at 07:52; Start 12/09/21 at 09:00 Polyethylene Glycol (miraLAX PACKET) 17 gm 1X ONCE PO Last administered on 12/08/21at 14:51; Start 12/08/21 at 15:00; Stop 12/08/21 at 15:01; Status DC Polyethylene Glycol (miraLAX PACKET) 17 gm BID PO Last administered on 12/09/21at 09:15; Start 12/09/21 at 09:15; Stop 12/10/21 at 12:18; Status DC Potassium Chloride (Klor-Con) 40 meq 1X ONCE PO Last administered on 12/09/21at 10:30; Start 12/09/21 at 11:45; Stop 12/09/21 at 11:46; Status DC Diltiazem HCl (Cardizem) 60 mg 1X ONCE PO Last administered on 12/09/21at 15:15; Start 12/09/21 at 15:15; Stop 12/09/21 at 15:16; Status DC Diltiazem HCl (Cardizem 24hr Cd) 180 mg DAILY PO Last administered on 12/14/21at 07:59; Start 12/10/21 at 09:00 Polyethylene Glycol (miraLAX PACKET) 17 gm DAILY PO Last administered on 12/13/21at 08:13; Start 12/11/21 at 09:00; Stop 12/13/21 at 12:52; Status DC Polyethylene Glycol (miraLAX PACKET) 17 gm BID PO Last administered on 12/14/21at 07:52; Start 12/13/21 at 21:00 Bisacodyl (Dulcolax Supp) 10 mg 1X ONCE [place] ; Start 12/13/21 at 13:00; Stop 12/13/21 at 13:01; Status DC Active Scripts Active Prednisone 20 Mg Tablet 1 Tab PO DAILY 5 Days Eliquis (Apixaban) 5 Mg Tablet 5 Mg PO BID 30 Days Diltiazem 24Hr Cd (Diltiazem HCl) 240 Mg Cap.er.24h 240 Mg PO DAILY 30 Days [Albuterol Sulfate] 2.5 MG/3 ML Nebu 2.5 Mg NEB PRN Q2HR PRN Reported Furosemide 40 Mg Tablet 3 Tab PO DAILY Advair 500-50 Diskus (Fluticasone/Salmeterol) 1 Each Disk.w.dev 1 Puff INH BID Albuterol Sulfate Neb Soln (Albuterol Sulfate) 2.5 Mg/3 Ml Vial.neb 2.5 Mg NEB PRN Q4-6HRS PRN Glyxambi 25 mg-5 mg Tablet (Empagliflozin/Linagliptin) 1 Each Tablet 1 Each PO DAILY Metformin Hcl Er (Metformin Hcl) 500 Mg Tab.er.24 500 Mg PO BID Lisinopril 5 Mg Tablet 10 Mg PO DAILY Glimepiride 4 Mg Tablet 4 Mg PO BID Spiriva (Tiotropium [place]) 18 Mcg Cap.w.dev 18 Mcg IH DAILY Vitals/I & O Vital Sign - Last 24 Hours 12/13/21 12/13/21 12/13/21 12/13/21 15:00 15:16 17:10 19:50 Temp 98.0 97.3 98.0 97.3 Pulse 85 78 Resp 35 22 B/P (MAP) 119/71 (87) 116/78 (91) Pulse Ox 92 94 96 95 O2 Delivery BiPAP/CPAP BiPAP/CPAP BiPAP/CPAP BiPAP/CPAP 12/13/21 12/13/21 12/13/21 12/13/21 19:59 19:59 20:48 23:30 Temp 96.1 96.1 Pulse 67 Resp 20 B/P (MAP) 125/72 (89) Pulse Ox 95 94 O2 Delivery Bi-pap BiPAP/CPAP BiPAP/CPAP O2 Flow Rate 6.0 6.0 12/14/21 12/14/21 12/14/21 12/14/21 00:00 03:25 04:00 06:12 Temp 96.9 96.9 Pulse 78 Resp 22 B/P (MAP) 123/74 (90) Pulse Ox 95 95 95 95 O2 Delivery BiPAP/CPAP BiPAP/CPAP BiPAP/CPAP BiPAP/CPAP 12/14/21 12/14/21 12/14/21 12/14/21 07:00 07:15 07:59 08:00 Temp 97.5 97.5 Pulse 98 95 Resp 22 B/P (MAP) 119/90 (100) 119/90 Pulse Ox 92 91 O2 Delivery BiPAP/CPAP Nasal Cannula O2 Flow Rate 6.0 6.0 12/14/21 12/14/21 12/14/21 08:00 11:00 12:09 Temp 97.5 97.5 Pulse 95 Resp 26 B/P (MAP) 121/80 (94) Pulse Ox 95 95 O2 Delivery Bi-pap BiPAP/CPAP BiPAP/CPAP O2 Flow Rate 6.0 Intake and Output 12/13/21 12/13/21 12/14/21 15:00 23:00 07:00 Intake Total 580 ml 120 ml Output Total 1420 ml 600 ml 1000 ml Balance -840 ml -600 ml -880 ml Justifications for Admission Other Justification Acute hypoxemic respiratory failure DARBY TUTTLE MD Dec 14, 2021 14:09
[2021-12-14 15:00] VITALS: BP 122/80
--- NOTE | 2021-12-14 15:06 | PDOC ---
[facility] [facility] PROGRESS NOTE Date of Service DOS: DATE: 12/14/21 TIME: 15:05 Chief Complaint Chief Complaint Sepsis Acute hypoxic/hypercapnic respiratory failure requiring BiPAP support Right lower lobe pneumonia, possible gram-negative organisms possible aspiration Hemodynamic instability, possible septic shock A. fib RVR Acute electrolyte derangementhyponatremia, likely hypervolemic Acute on chronic respiratory acidosis Lactic acidemia Elevated BNP suggestive of volume overload History of COPD History of diabetes mellitus type 2 History of tobacco misuse Refractory hypoglycemia related to sulfonylurea use - can stop d5 today History of Present Illness History of Present Illness 56-year-old male with past medical history of CHF, COPD on 6 L home O2, diabetes mellitus 2 Who comes in with shortness of breath for the past several weeks. The past few days has worsened to the point where he needed to come to the ED for further evaluation. Patient is on torsemide at home for his CHF. Patient currently denies any chest pain or fevers or cough or body aches or dysuria or hematuria or abdominal pain or diarrhea. 12/13- trying to get to skilled for rehab , referral peinding off BIPAP PRN, looks abvout the same agatin , dyspnea with PT, 12/14, very weak, was getting a chair bath, and I asked him to try to get into the shower later. not strong enough to DC home, is struggling some with his ADLs Vitals/I&O Vitals/I&O: Vital Signs Date Time Temp Pulse Resp B/P (MAP) Pulse Ox O2 Delivery O2 Flow Rate FiO2 12/14/21 12:09 95 BiPAP/CPAP 12/14/21 11:00 97.5 95 26 121/80 (94) 97.5 12/14/21 08:00 6.0 I & O 12/13/21 12/13/21 12/14/21 15:00 23:00 07:00 Intake Total 580 ml 120 ml Output Total 1420 ml 600 ml 1000 ml Balance -840 ml -600 ml -880 ml Physical Exam General: No acute distress Heart: Other (Irregular rhythm) Lungs: Clear, Other (Decreased breath sounds bilaterally) Abdomen: Normal bowel sounds Extremities: No cyanosis, Other (3-4+ bilateral LE pitting edema) Skin: No rashes, Other (tinea pedis bilaterally) Labs Labs: Laboratory Tests Test 12/13/21 17:17 12/13/21 20:55 12/14/21 07:44 Glucose (Fingerstick) 142 mg/dL (70-99) 157 mg/dL (70-99) 119 mg/dL (70-99) Assessment and Plan Assessmemt and Plan Problems Medical Problems: (1) Atrial fibrillation with RVR Status: Acute (2) CHF exacerbation Status: Acute (3) COPD exacerbation Status: Acute (4) Pneumonia Status: Acute Comment Review of Relevant I have reviewed the following items wade (where applicable) has been applied. Medications: Current Medications Medications (Trade) Dose Ordered Sig/Theresa Route PRN Reason Start Time Stop Time Status Last Admin Dose Admin Polyethylene Glycol (miraLAX PACKET) 17 gm BID PO 12/13/21 21:00 12/14/21 07:52 Justifications for Admission Other Justification Acute hypoxemic respiratory failure WAYLON LONG MD Dec 14, 2021 15:06
[2021-12-14 19:39] VITALS: BP 128/65
[2021-12-14 22:36] VITALS: BP 113/73
[2021-12-15 02:49] VITALS: BP 138/82
[2021-12-15] MEDS: IPRATRPIUM/ALBUTEROL 0.5/2.5MG 3 ML NEBU. NEB SCH ×4 (06:35→18:54)
[2021-12-15 07:00] VITALS: BP 125/80
[2021-12-15] MEDS: PANTOPRAZOLE 40 MG TABLET.DR. PO SCH (08:00)
[2021-12-15] MEDS: APIXABAN 5 MG TABLET. PO SCH ×2 (08:00→20:18)
[2021-12-15] MEDS: LACTOBACILLUS RHAMNOSUS GG 1 CAPSULE. PO SCH ×2 (08:00→20:18)
[2021-12-15] MEDS: DOCUSATE SODIUM 100 MG CAPSULE. PO SCH (08:00)
[2021-12-15] MEDS: INSULIN LISPRO 300 UNITS/3 ML VIAL. SQ SCH ×3 (08:00→17:00)
[2021-12-15] MEDS: MAGNESIUM OXIDE 400 MG TABLET PO SCH (08:00)
[2021-12-15] MEDS: POLYETHYLENE GLYCOL 3350 17 GM PACKET. PO SCH ×2 (08:01→20:18)
[2021-12-15] MEDS: POTASSIUM CHLORIDE 20 MEQ TABLET.ER. PO SCH (08:01)
[2021-12-15] MEDS: FUROSEMIDE 100 MG/10 ML VIAL. IVP SCH ×2 (08:02→14:15)
--- NOTE | 2021-12-15 10:01 | PDOC ---
PULMONARY PROGRESS NOTES DATE: 12/15/21 TIME: 09:59 Subjective used BiPAP overnight on home 02 6 lpm Feels better Vitals Vital Signs Date Time Temp Pulse Resp B/P (MAP) Pulse Ox O2 Delivery O2 Flow Rate FiO2 12/15/21 08:01 87 125/80 12/15/21 08:00 6.0 12/15/21 07:00 97.9 18 91 Nasal Cannula 97.9 ROS: No Nausea, No Chest Pain, No Abdominal Pain, No Increase Cough General: Alert, No acute distress HEENT: Other (nc at perrl bipap mask on ) Lungs: Clear, Other (Decreased breath sounds bilaterally) Cardiovascular: S1, S2 Abdomen: Soft, Non-tender Neuro Exam: Alert Extremities: Other (3+ pitting edema) Skin: Warm Labs Laboratory Tests Test 12/13/21 11:14 12/13/21 17:17 12/13/21 20:55 12/14/21 07:44 Glucose (Fingerstick) 127 mg/dL (70-99) 142 mg/dL (70-99) 157 mg/dL (70-99) 119 mg/dL (70-99) Test 12/14/21 16:40 12/14/21 20:16 12/15/21 07:17 Glucose (Fingerstick) 148 mg/dL (70-99) 183 mg/dL (70-99) 146 mg/dL (70-99) Laboratory Tests Test 12/14/21 16:40 12/14/21 20:16 12/15/21 07:17 Glucose (Fingerstick) 148 mg/dL (70-99) 183 mg/dL (70-99) 146 mg/dL (70-99) Medications Active Scripts Medications Dose Route/Sig Max Daily Dose Days Date Category Furosemide 40 Mg Tablet 3 Tab PO DAILY 12/03/21 Reported Prednisone 20 Mg Tablet 1 Tab PO DAILY 5 09/30/21 Rx Eliquis (Apixaban) 5 Mg Tablet 5 Mg PO BID 30 09/30/21 Rx Diltiazem 24Hr Cd (Diltiazem HCl) 240 Mg Cap.er.24h 240 Mg PO DAILY 30 09/30/21 Rx Advair 500-50 Diskus (Fluticasone/Salmeterol) 1 Each Disk.w.dev 1 Puff INH BID 09/24/21 Reported Albuterol Sulfate Neb Soln (Albuterol Sulfate) 2.5 Mg/3 Ml Vial.neb 2.5 Mg NEB PRN Q4-6HRS PRN 06/12/21 Reported Glyxambi 25 mg-5 mg Tablet (Empagliflozin/Linagliptin) 1 Each Tablet 1 Each PO DAILY 01/03/21 Reported [Albuterol Sulfate] 2.5 MG/3 ML Nebu 2.5 Mg NEB PRN Q2HR PRN 09/26/14 Rx Metformin Hcl Er (Metformin Hcl) 500 Mg Tab.er.24 500 Mg PO BID 11/26/13 Reported Lisinopril 5 Mg Tablet 10 Mg PO DAILY 11/26/13 Reported Glimepiride 4 Mg Tablet 4 Mg PO BID 11/26/13 Reported Spiriva (Tiotropium [place]) 18 Mcg Cap.w.dev 18 Mcg IH DAILY 11/26/13 Reported Impression . 1. Acute on chronic hypoxic and hypercapnic respiratory failure secondary to multifactorial etiologies including a combination of acute on chronic right heart failure, AECOPD and Afib with RVR 2. Metabolic toxic encephalopathy 3. The patient with underlying severe chronic obstructive pulmonary disease and now comes in with worsening respiratory failure. Acute on chronic obstructive pulmonary disease exacerbation is another trigger. 4. The patient with obesity hypoventilation syndrome and chronic cor pulmonale. On home oxygen at 6 liters and BiPAP at nighttime. 5. Possible sepsis 6. Atrial fibrillation with rapid ventricular response, also contributing to heart failure. 7. Fully vaccinated for COVID. An influenza screen and COVID is negative. 8. Abnormal chest x-ray consistent with congestive heart failure. Plan . 02 titration , currently 6lpm NC bipap prn during day cont at night setting reviewed Diuresis per cardiology monitor k cr Long-term prognosis is poor DVT prophylaxis Continue Eliquis need snu since he is frequently requiring BiPAP. discussed w pt IRAIS HICKS MD Dec 15, 2021 10:01
--- NOTE | 2021-12-15 10:29 | PDOC ---
RAJAT CASTELLANO ADMINISTRATION MANAGER 12/15/21 1029: CARDIO Progress Notes Date and Time Date of Service 12/15/21 Time of Evaluation 1020 Subjective Subjective: No Chest Pain, No Palpitations, Other (more SOA beginning Wednesday afternoon) Vitals Vitals Vital Signs Date Time Temp Pulse Resp B/P (MAP) Pulse Ox O2 Delivery O2 Flow Rate FiO2 12/15/21 10:02 95 BiPAP/CPAP 12/15/21 08:01 87 125/80 12/15/21 08:00 6.0 12/15/21 07:00 97.9 18 97.9 Weight Weight [ ] Input and Output Intake and Output Intake and Output 12/15/21 07:00 Intake Total 1260 ml Output Total 2852 ml Balance -1592 ml Intake Oral 1260 ml Output Urine Total 2850 ml Stool Total 2 ml # Bowel Movements 1 Laboratory Labs Laboratory Tests Test 12/14/21 16:40 12/14/21 20:16 12/15/21 07:17 Glucose (Fingerstick) 148 mg/dL (70-99) 183 mg/dL (70-99) 146 mg/dL (70-99) Microbiology Micro Microbiology 12/03/21 Blood Culture - Final, Complete NO GROWTH AFTER 5 DAYS Physical Exam HEENT: Neck Supple W Full Motion Chest: Symmetric LUNGS: Other (diminished ) Heart: irregularly irregular (AFIB) Abdomen: Soft N/T, Other (obese) Extremities: Other (1-2+ bilateral LE pitting edema) Neurology: alert, oriented, follow commands Assessment Assessment 1. Acute on chronic respiratory failure, AECOPD, CHF, cor pulmonale 2. Acute on chronic diastolic CHF; echo 08/19 with preserved LV systolic function. improved s/p IV diuresis. 3. PAFIB; rate mostly controlled, although periods of RVR noted on tele 4. DM2 with hypoglycemic reaction: per PCP 5. Hypertension; controlled 6. HLP 7. BALTA, obesity hypoventilation syndrome Recommendations Continue Lasix Am labs Cardizem for rate control; will increase for better rated control Continue Eliquis for stroke prophylaxis. Secondary prevention measures BiPAP PRN Ongoing lung optimization Will plan for outpatient right and left heart catheterization and follow up in our office with Dr. Crawford. Supportive care Justicifation of Admission Dx: Justifications for Admission: Justification of Admission Dx: Yes Respiratory Failure: Severe Resp Distress JENNIFFER CRAWFORD MD 12/16/21 0757: CARDIO Progress Notes Assessment Assessment Patient seen and examined 12/15/2021. Agree with DERMATOPATHOLOGIST's assessment and plan. Acute on chronic diastolic heart failure better compensated. Atrial fibrillation rate better controlled. Continue Eliquis for stroke prophylaxis. Plan for outpatient right and left heart catheterization RAJAT CASTELLANO APRN Dec 15, 2021 10:29 JENNIFFER CRAWFORD MD Dec 16, 2021 07:57
[2021-12-15 11:00] VITALS: BP 120/81
[2021-12-15 15:00] VITALS: BP 121/76
[2021-12-15 19:45] VITALS: BP 100/74
[2021-12-15 23:45] VITALS: BP 110/77
[2021-12-16 03:40] VITALS: BP 104/68
[2021-12-16 06:13] LABS: CALCIUM 8.2 mg/dL (8.5-10.1); CREATININE 0.9 mg/dL (0.7-1.3); GFR 87.6; MAGNESIUM 2.3 mg/dL (1.8-2.4); POTASSIUM 3.8 mmol/L (3.5-5.1)
[2021-12-16] MEDS: PANTOPRAZOLE 40 MG TABLET.DR. PO SCH (06:30)
[2021-12-16] MEDS: IPRATRPIUM/ALBUTEROL 0.5/2.5MG 3 ML NEBU. NEB SCH ×4 (06:38→19:15)
[2021-12-16 07:00] VITALS: BP 143/71
[2021-12-16] MEDS: INSULIN LISPRO 300 UNITS/3 ML VIAL. SQ SCH ×3 (08:00→16:36)
[2021-12-16] MEDS: MAGNESIUM OXIDE 400 MG TABLET PO SCH (08:29)
[2021-12-16] MEDS: APIXABAN 5 MG TABLET. PO SCH (08:30)
[2021-12-16] MEDS: POTASSIUM CHLORIDE 20 MEQ TABLET.ER. PO SCH (08:30)
[2021-12-16] MEDS: LACTOBACILLUS RHAMNOSUS GG 1 CAPSULE. PO SCH ×2 (08:30→20:27)
[2021-12-16] MEDS: FUROSEMIDE 100 MG/10 ML VIAL. IVP SCH ×2 (08:43→16:34)
[2021-12-16] MEDS: DOCUSATE SODIUM 100 MG CAPSULE. PO SCH (08:48)
[2021-12-16] MEDS: POLYETHYLENE GLYCOL 3350 17 GM PACKET. PO SCH ×2 (08:48→20:27)
--- NOTE | 2021-12-16 09:57 | PDOC ---
PULMONARY PROGRESS NOTES DATE: 12/16/21 TIME: 09:54 Subjective Sitting up in chair, currently on BiPAP 16/05 40% and O2 saturation of 95% Feels better Awaiting rehab placement Vitals Vital Signs Date Time Temp Pulse Resp B/P (MAP) Pulse Ox O2 Delivery O2 Flow Rate FiO2 12/16/21 08:31 95 143/71 12/16/21 07:00 96.8 20 89 Nasal Cannula 6.0 96.8 ROS: No Nausea, No Chest Pain, No Abdominal Pain, No Increase Cough General: Alert, No acute distress HEENT: Other (nc at perrl bipap mask on ) Lungs: Clear, Other (Decreased breath sounds bilaterally) Cardiovascular: S1, S2 Abdomen: Soft, Non-tender Neuro Exam: Alert Extremities: Other (3+ pitting edema) Skin: Warm Labs Laboratory Tests Test 12/14/21 16:40 12/14/21 20:16 12/15/21 07:17 12/15/21 11:27 Glucose (Fingerstick) 148 mg/dL (70-99) 183 mg/dL (70-99) 146 mg/dL (70-99) 136 mg/dL (70-99) Test 12/15/21 16:45 12/15/21 21:05 12/16/21 04:25 12/16/21 07:52 Glucose (Fingerstick) 130 mg/dL (70-99) 174 mg/dL (70-99) 133 mg/dL (70-99) Sodium Level 136 mmol/L (136-145) Potassium Level 3.8 mmol/L (3.5-5.1) Chloride Level 94 mmol/L (98-107) Carbon Dioxide Level 37 mmol/L (21-32) Anion Gap 5 (6-14) Blood Urea Nitrogen 22 mg/dL (8-26) Creatinine 0.9 mg/dL (0.7-1.3) Estimated GFR (Cockcroft-Gault) 87.6 Glucose Level 134 mg/dL (70-99) Calcium Level 8.2 mg/dL (8.5-10.1) Magnesium Level 2.3 mg/dL (1.8-2.4) Laboratory Tests Test 12/15/21 11:27 12/15/21 16:45 12/15/21 21:05 12/16/21 04:25 Glucose (Fingerstick) 136 mg/dL (70-99) 130 mg/dL (70-99) 174 mg/dL (70-99) Sodium Level 136 mmol/L (136-145) Potassium Level 3.8 mmol/L (3.5-5.1) Chloride Level 94 mmol/L (98-107) Carbon Dioxide Level 37 mmol/L (21-32) Anion Gap 5 (6-14) Blood Urea Nitrogen 22 mg/dL (8-26) Creatinine 0.9 mg/dL (0.7-1.3) Estimated GFR (Cockcroft-Gault) 87.6 Glucose Level 134 mg/dL (70-99) Calcium Level 8.2 mg/dL (8.5-10.1) Magnesium Level 2.3 mg/dL (1.8-2.4) Test 12/16/21 07:52 Glucose (Fingerstick) 133 mg/dL (70-99) Medications Active Scripts Medications Dose Route/Sig Max Daily Dose Days Date Category Furosemide 40 Mg Tablet 3 Tab PO DAILY 12/03/21 Reported Prednisone 20 Mg Tablet 1 Tab PO DAILY 5 09/30/21 Rx Eliquis (Apixaban) 5 Mg Tablet 5 Mg PO BID 30 09/30/21 Rx Diltiazem 24Hr Cd (Diltiazem HCl) 240 Mg Cap.er.24h 240 Mg PO DAILY 30 09/30/21 Rx Advair 500-50 Diskus (Fluticasone/Salmeterol) 1 Each Disk.w.dev 1 Puff INH BID 09/24/21 Reported Albuterol Sulfate Neb Soln (Albuterol Sulfate) 2.5 Mg/3 Ml Vial.neb 2.5 Mg NEB PRN Q4-6HRS PRN 06/12/21 Reported Glyxambi 25 mg-5 mg Tablet (Empagliflozin/Linagliptin) 1 Each Tablet 1 Each PO DAILY 01/03/21 Reported [Albuterol Sulfate] 2.5 MG/3 ML Nebu 2.5 Mg NEB PRN Q2HR PRN 09/26/14 Rx Metformin Hcl Er (Metformin Hcl) 500 Mg Tab.er.24 500 Mg PO BID 11/26/13 Reported Lisinopril 5 Mg Tablet 10 Mg PO DAILY 11/26/13 Reported Glimepiride 4 Mg Tablet 4 Mg PO BID 11/26/13 Reported Spiriva (Tiotropium [place]) 18 Mcg Cap.w.dev 18 Mcg IH DAILY 11/26/13 Reported Impression . 1. Acute on chronic hypoxic and hypercapnic respiratory failure secondary to multifactorial etiologies including a combination of acute on chronic right heart failure, AECOPD and Afib with RVR 2. Metabolic toxic encephalopathy 3. The patient with underlying severe chronic obstructive pulmonary disease and now comes in with worsening respiratory failure. Acute on chronic obstructive pulmonary disease exacerbation is another trigger. 4. The patient with obesity hypoventilation syndrome and chronic cor pulmonale. On home oxygen at 6 liters and BiPAP at nighttime. 5. Possible sepsis 6. Atrial fibrillation with rapid ventricular response, also contributing to heart failure. 7. Fully vaccinated for COVID. An influenza screen and COVID is negative. 8. Abnormal chest x-ray consistent with congestive heart failure. Plan . 02 titration , currently BiPAP 18/6 20 40% bipap prn during day cont at night setting reviewed Diuresis per cardiology monitor k cr Long-term prognosis is poor DVT prophylaxis Continue Eliquis Labs reviewed. need snu since he is frequently requiring BiPAP. Awaiting placement. discussed w pt IRAIS HICKS MD Dec 16, 2021 09:56
[2021-12-16 11:00] VITALS: BP 124/74
--- NOTE | 2021-12-16 11:06 | PDOC ---
[facility] [facility] PROGRESS NOTE Date of Service DOS: DATE: 12/16/21 TIME: 11:05 Chief Complaint Chief Complaint Sepsis Acute hypoxic/hypercapnic respiratory failure requiring BiPAP support Right lower lobe pneumonia, possible gram-negative organisms possible aspiration Hemodynamic instability, possible septic shock A. fib RVR Acute electrolyte derangementhyponatremia, likely hypervolemic Acute on chronic respiratory acidosis Lactic acidemia Elevated BNP suggestive of volume overload History of COPD History of diabetes mellitus type 2 History of tobacco misuse Refractory hypoglycemia related to sulfonylurea use - can stop d5 today History of Present Illness History of Present Illness 56-year-old male with past medical history of CHF, COPD on 6 L home O2, diabetes mellitus 2 Who comes in with shortness of breath for the past several weeks. The past few days has worsened to the point where he needed to come to the ED for further evaluation. Patient is on torsemide at home for his CHF. Patient currently denies any chest pain or fevers or cough or body aches or dysuria or hematuria or abdominal pain or diarrhea. 12/13- trying to get to skilled for rehab , off BIPAP PRN, looks abvout the same. agitation , dyspnea with PT, 12/14, very weak, was getting a chair bath, and I asked him to try to get into the shower later. not strong enough to DC home, is struggling some with his ADLs 12/15: Able to sit in chair but uses BiPAP almost immediately. Extremely weak. Still with was 3 L urine output on IV Lasix twice daily. Will need skilled rehab when transition to p.o. diuretics. 12/16: Seen sitting in chair on BiPAP. Still has significant urine output per [facility]ons. On Lasix 80 mg IV twice daily. K3.8. Still appears to have a low ago with diuresis over the next couple days. No chest pain but still short of breath and weak Vitals/I&O Vitals/I&O: Vital Signs Date Time Temp Pulse Resp B/P (MAP) Pulse Ox O2 Delivery O2 Flow Rate FiO2 12/16/21 10:57 96 BiPAP/CPAP 12/16/21 08:31 95 143/71 12/16/21 08:00 6.0 12/16/21 07:00 96.8 20 96.8 I & O 12/15/21 12/15/21 12/16/21 15:00 23:00 07:00 Intake Total 640 ml 1000 ml 400 ml Output Total 1000 ml 450 ml Balance 640 ml 0 ml -50 ml Physical Exam General: No acute distress Heart: Other (Irregular rhythm) Lungs: Clear, Other (Decreased breath sounds bilaterally) Abdomen: Normal bowel sounds Extremities: No cyanosis, Other (3-4+ bilateral LE pitting edema) Skin: No rashes, Other (tinea pedis bilaterally) Labs Labs: Laboratory Tests Test 12/15/21 11:27 12/15/21 16:45 12/15/21 21:05 12/16/21 04:25 Glucose (Fingerstick) 136 mg/dL (70-99) 130 mg/dL (70-99) 174 mg/dL (70-99) Sodium Level 136 mmol/L (136-145) Potassium Level 3.8 mmol/L (3.5-5.1) Chloride Level 94 mmol/L (98-107) Carbon Dioxide Level 37 mmol/L (21-32) Anion Gap 5 (6-14) Blood Urea Nitrogen 22 mg/dL (8-26) Creatinine 0.9 mg/dL (0.7-1.3) Estimated GFR (Cockcroft-Gault) 87.6 Glucose Level 134 mg/dL (70-99) Calcium Level 8.2 mg/dL (8.5-10.1) Magnesium Level 2.3 mg/dL (1.8-2.4) Test 12/16/21 07:52 Glucose (Fingerstick) 133 mg/dL (70-99) Assessment and Plan Assessmemt and Plan Problems Medical Problems: (1) Atrial fibrillation with RVR Status: Acute (2) CHF exacerbation Status: Acute (3) COPD exacerbation Status: Acute (4) Pneumonia Status: Acute Comment Review of Relevant I have reviewed the following items wade (where applicable) has been applied. Medications: Current Medications Medications (Trade) Dose Ordered Sig/Theresa Route PRN Reason Start Time Stop Time Status Last Admin Dose Admin Diltiazem HCl (Cardizem 24hr Cd) 240 mg DAILY PO 12/16/21 09:00 12/16/21 08:31 Justifications for Admission Other Justification Acute hypoxemic respiratory failure ABY GUERIN MD Dec 16, 2021 11:05
--- NOTE | 2021-12-16 12:14 | PDOC ---
RAJAT CASTELLANO BAKER HELPER 12/16/21 1214: CARDIO Progress Notes Date and Time Date of Service 12/16/21 Time of Evaluation 1215 Subjective Subjective: No Chest Pain, No Palpitations, Other (Breathing slightly improved. Has been off BiPAP some today) Vitals Vitals Vital Signs Date Time Temp Pulse Resp B/P (MAP) Pulse Ox O2 Delivery O2 Flow Rate FiO2 12/16/21 11:00 107 23 124/74 (91) 97 BiPAP/CPAP 12/16/21 08:00 6.0 12/16/21 07:00 96.8 96.8 Weight Weight [ ] Input and Output Intake and Output Intake and Output 12/16/21 07:00 Intake Total 2040 ml Output Total 1450 ml Balance 590 ml Intake Oral 2040 ml Output Urine Total 1450 ml # Bowel Movements 1 Laboratory Labs Laboratory Tests Test 12/15/21 16:45 12/15/21 21:05 12/16/21 04:25 12/16/21 07:52 Glucose (Fingerstick) 130 mg/dL (70-99) 174 mg/dL (70-99) 133 mg/dL (70-99) Sodium Level 136 mmol/L (136-145) Potassium Level 3.8 mmol/L (3.5-5.1) Chloride Level 94 mmol/L (98-107) Carbon Dioxide Level 37 mmol/L (21-32) Anion Gap 5 (6-14) Blood Urea Nitrogen 22 mg/dL (8-26) Creatinine 0.9 mg/dL (0.7-1.3) Estimated GFR (Cockcroft-Gault) 87.6 Glucose Level 134 mg/dL (70-99) Calcium Level 8.2 mg/dL (8.5-10.1) Magnesium Level 2.3 mg/dL (1.8-2.4) Test 12/16/21 11:42 Glucose (Fingerstick) 150 mg/dL (70-99) Microbiology Micro Microbiology 12/03/21 Blood Culture - Final, Complete NO GROWTH AFTER 5 DAYS Physical Exam HEENT: Neck Supple W Full Motion Chest: Symmetric LUNGS: Other (diminished throughout. on NC) Heart: irregularly irregular (AFIB) Abdomen: Soft N/T, Other (obese) Extremities: Other (1+ bilateral LE pitting edema) Neurology: alert, oriented, follow commands Assessment Assessment 1. Acute on chronic respiratory failure, AECOPD, CHF, cor pulmonale 2. Acute on chronic diastolic CHF; echo 08/19 with preserved LV systolic function. improved s/p IV diuresis. 3. PAFIB; rate mostly controlled, although periods of RVR noted on tele 4. DM2 with hypoglycemic reaction: per PCP 5. Hypertension; controlled 6. HLP 7. BALTA, obesity hypoventilation syndrome Recommendations Continue Lasix Cardizem for rate control Continue Eliquis for stroke prophylaxis. Secondary prevention measures BiPAP PRN Ongoing lung optimization Patient requesting right and left heart catheterization to be conducted on an inpatient basis given ongoing dyspnea. Will d/w primary pediatrician/medical doctor. Supportive care Justicifation of Admission Dx: Justifications for Admission: Justification of Admission Dx: Yes Respiratory Failure: Severe Resp Distress JENNIFFER ROTHMAN MD 12/16/21 1640: CARDIO Progress Notes Assessment Assessment Patient seen and examined. Agree with SUBSTATION TECHNICIAN's assessment and plan. Patient presently needing BiPAP. Acute on chronic diastolic heart failure better compensated but still slightly fluid overloaded Plan for right and left heart catheterization and consider milrinone if he is still significantly fluid overloaded Atrial fibrillation rate controlled RAJAT CASTELLANO APRN Dec 16, 2021 12:14 JENNIFFER ROTHMAN MD Dec 16, 2021 16:40
[2021-12-16 15:00] VITALS: BP 141/71
[2021-12-16 19:00] VITALS: BP 113/65
[2021-12-16 23:00] VITALS: BP 127/81
[2021-12-17] VITALS (7 sets, daily range): BP systolic 113–150; BP diastolic 65–81
[2021-12-17 05:02] LABS: CALCIUM 8.1 mg/dL (8.5-10.1); CREATININE 1.1 mg/dL (0.7-1.3); GFR 69.5; MAGNESIUM 2.2 mg/dL (1.8-2.4); POTASSIUM 3.7 mmol/L (3.5-5.1)
[2021-12-17] MEDS: PANTOPRAZOLE 40 MG TABLET.DR. PO SCH (05:59)
[2021-12-17] MEDS: IPRATRPIUM/ALBUTEROL 0.5/2.5MG 3 ML NEBU. NEB SCH ×4 (06:44→19:42)
[2021-12-17] MEDS: INSULIN LISPRO 300 UNITS/3 ML VIAL. SQ SCH ×3 (08:00→17:00)
[2021-12-17] MEDS: LACTOBACILLUS RHAMNOSUS GG 1 CAPSULE. PO SCH ×2 (08:16→20:39)
[2021-12-17] MEDS: POLYETHYLENE GLYCOL 3350 17 GM PACKET. PO SCH ×2 (08:16→21:00)
[2021-12-17] MEDS: MAGNESIUM OXIDE 400 MG TABLET PO SCH (08:17)
[2021-12-17] MEDS: POTASSIUM CHLORIDE 20 MEQ TABLET.ER. PO SCH (08:17)
[2021-12-17] MEDS: DOCUSATE SODIUM 100 MG CAPSULE. PO SCH (08:17)
[2021-12-17] MEDS: FUROSEMIDE 100 MG/10 ML VIAL. IVP SCH ×2 (08:18→14:10)
[2021-12-17] MEDS ORDERED: fentaNYL PF VIAL 100 MCG/2 ML VIAL IV ONE (09:00)
[2021-12-17] MEDS ORDERED: IODIXANOL 320 MG/ML 100 ML VIAL. IART ONE (09:00)
[2021-12-17] MEDS ORDERED: LIDOCAINE 1% Multi-Dose 20 ML VIAL. INJ ONE (09:00)
[2021-12-17] MEDS ORDERED: MIDAZOLAM HCL/PF 2 MG/2 ML VIAL. IV ONE (09:00)
--- NOTE | 2021-12-17 09:39 | PDOC ---
MODERATE SEDATION ASSESSMENT RISKS/ALTERNATIVES Risks/Alternatives Risks and alternatives of this type of sedation and procedure discussed with: RISK/ALTERNATIVES: Patient H & P ON CHART H & P H & P on chart and reviewed for co-morbid conditions and appropriate labs. H&P ON CHART: Yes STATUS PREG STATUS ASSESSED: N/A MEDS/ALLERGIES REVIEWED Meds/Allergies Reviewed Medications and Allergies including time and route of recently administered narcotics and sedatives. MEDS/ALLERGIES REVIEWED: Yes ASA RATING ASA RATING: II AIRWAY ASSESSMENT Airway Assessment Airway patency, oral function limitations, presence of caps, crowns, dentures, partials, and ability to extend neck assessed. AIRWAY ASSESSMENT: Yes MALLAMPATI SCORE MALLAMPATI SCORE: II PRE-SEDATION ASSESSMENT PRE-SEDATION ASSESSMENT: Yes DARBY TUTTLE MD Dec 17, 2021 09:39
[2021-12-17] MEDS ORDERED: 0.9 % SODIUM CHLORIDE 10 ML DISP.SYRIN. IV PRN (10:45)
[2021-12-17] MEDS ORDERED: NITROGLYCERIN SUBLINGUAL 0.4 MG BOTTLE OF 25. SL PRN (10:45)
--- NOTE | 2021-12-17 11:31 | PDOC ---
[facility] [facility] PROGRESS NOTE Date of Service DOS: DATE: 12/17/21 TIME: 11:28 Chief Complaint Chief Complaint Sepsis Acute hypoxic/hypercapnic respiratory failure requiring BiPAP support Right lower lobe pneumonia, possible gram-negative organisms possible aspiration Hemodynamic instability, possible septic shock A. fib RVR Acute electrolyte derangementhyponatremia, likely hypervolemic Acute on chronic respiratory acidosis Lactic acidemia Elevated BNP suggestive of volume overload History of COPD History of diabetes mellitus type 2 History of tobacco misuse Refractory hypoglycemia related to sulfonylurea use - can stop d5 today History of Present Illness History of Present Illness 56-year-old male with past medical history of CHF, COPD on 6 L home O2, diabetes mellitus 2 Who comes in with shortness of breath for the past several weeks. The past few days has worsened to the point where he needed to come to the ED for further evaluation. Patient is on torsemide at home for his CHF. Patient currently denies any chest pain or fevers or cough or body aches or dysuria or hematuria or abdominal pain or diarrhea. 12/13- trying to get to skilled for rehab , off BIPAP PRN, looks abvout the same. agitation , dyspnea with PT, 12/14, very weak, was getting a chair bath, and I asked him to try to get into the shower later. not strong enough to DC home, is struggling some with his ADLs 12/15: Able to sit in chair but uses BiPAP almost immediately. Extremely weak. Still with was 3 L urine output on IV Lasix twice daily. Will need skilled rehab when transition to p.o. diuretics. 12/16: Seen sitting in chair on BiPAP. Still has significant urine output per [facility]ons. On Lasix 80 mg IV twice daily. K3.8. Still appears to have a low ago with diuresis over the next couple days. No chest pain but still short of breath and weak 12/17: N.p.o. for left right heart catheterization today. Still having excellent diuresis. CR bumped to 1.1 today. Wearing his BiPAP well overnight. Very weak plans on skilled rehab Vitals/I&O Vitals/I&O: Vital Signs Date Time Temp Pulse Resp B/P (MAP) Pulse Ox O2 Delivery O2 Flow Rate FiO2 12/17/21 11:12 20 96 Nasal Cannula 6.0 12/17/21 10:35 92 12/17/21 08:17 130/71 12/17/21 07:00 98.1 98.1 I & O 12/16/21 12/16/21 12/17/21 15:00 23:00 07:00 Intake Total 1080 ml Output Total 1050 ml 500 ml Balance 30 ml -500 ml Physical Exam General: No acute distress Heart: Other (Irregular rhythm) Lungs: Clear, Other (Decreased breath sounds bilaterally) Abdomen: Normal bowel sounds Extremities: No cyanosis, Other (3-4+ bilateral LE pitting edema) Skin: No rashes, Other (tinea pedis bilaterally) Labs Labs: Laboratory Tests Test 12/16/21 11:42 12/16/21 16:36 12/16/21 20:37 12/17/21 03:05 Glucose (Fingerstick) 150 mg/dL (70-99) 137 mg/dL (70-99) 204 mg/dL (70-99) Sodium Level 135 mmol/L (136-145) Potassium Level 3.7 mmol/L (3.5-5.1) Chloride Level 93 mmol/L (98-107) Carbon Dioxide Level 36 mmol/L (21-32) Anion Gap 6 (6-14) Blood Urea Nitrogen 22 mg/dL (8-26) Creatinine 1.1 mg/dL (0.7-1.3) Estimated GFR (Cockcroft-Gault) 69.5 Glucose Level 120 mg/dL (70-99) Calcium Level 8.1 mg/dL (8.5-10.1) Magnesium Level 2.2 mg/dL (1.8-2.4) Test 12/17/21 08:04 Glucose (Fingerstick) 150 mg/dL (70-99) Assessment and Plan Assessmemt and Plan Problems Medical Problems: (1) Atrial fibrillation with RVR Status: Acute (2) CHF exacerbation Status: Acute (3) COPD exacerbation Status: Acute (4) Pneumonia Status: Acute Comment Review of Relevant I have reviewed the following items wade (where applicable) has been applied. Medications: Current Medications Medications (Trade) Dose Ordered Sig/Theresa Route PRN Reason Start Time Stop Time Status Last Admin Dose Admin Heparin Sodium/ Sodium Chloride (HEPARIN for ARTERIAL LINE FLUSH) 1,000 unit 1X ONCE IART 12/17/21 09:00 12/17/21 09:07 DC 12/17/21 09:00 Heparin Sodium/ Sodium Chloride (HEPARIN for ARTERIAL LINE FLUSH) 1,000 unit 1X ONCE IART 12/17/21 09:00 12/17/21 09:07 DC 12/17/21 09:00 Midazolam HCl (Versed) 2 mg 1X ONCE IV 12/17/21 09:00 12/17/21 09:07 DC 12/17/21 09:37 Fentanyl Citrate (Fentanyl 2ml Vial) 100 mcg 1X ONCE IV 12/17/21 09:00 12/17/21 09:07 DC 12/17/21 09:37 Iodixanol (Visipaque 320) 100 ml 1X ONCE IART 12/17/21 09:00 12/17/21 09:07 DC 12/17/21 10:30 Lidocaine HCl (Lidocaine 1% 20ml Vial) 20 ml 1X ONCE INJ 12/17/21 09:00 12/17/21 09:07 DC 12/17/21 09:52 Justifications for Admission Other Justification Acute hypoxemic respiratory failure ABY GUERIN MD Dec 17, 2021 11:31
--- NOTE | 2021-12-17 12:41 | CARD ---
MR#: [id number] Date of Study: 12/17/2021 Ordering Physician: DARBY VILLEGAS, Referring Physician: DARBY VILLEGAS, Tech: Marci Christy RT(R) APPROVED REPORT Procedures Left heart catheterization Right heart catheterization Selective coronary angiogram Left ventriculogram The patient is a 56-year-old male with severe pulmonary disease. He has had increasing episodes of s hortness of breath despite aggressive treatment. He additionally has episodes of atypical chest disc omfort. In this setting we recommended a right and left heart catheterization for delineating his co ronary arteries, checking LV pressures and checking right-sided heart pressures. Risks and benefits were discussed with the patient. He agreed to proceed. After informed consent was obtained the patient was brought to the heart catheterization lab. The ar ea of the right femoral artery and vein were prepared in the usual manner with Betadine, sterile drap ing and local anesthetic. An 18-gauge needle was used to enter the right femoral artery, a wire plac ed and a 6 Nepalese sheath placed over the wire. An 18-gauge needle was used to enter the right femor al vein, a wire placed and a 6 Nepalese sheath placed over the wire. Initially 6 Nepalese [place] cath eter was passed to the pulmonary capillary wedge position. Pressures in the wedge position, PA, RA a nd right atrium were measured and O2 saturations also taken in the PA, RA, RA and femoral artery. T his catheter was then removed. A 6 Nepalese JL 4 diagnostic catheter was advanced through the arterial sheath. It was used to engage the left coronary system and sequential injections of various views w ere obtained. A 6 Nepalese Tyree right diagnostic catheter was then used to engage the right marsh ry artery and sequential injections in various views were obtained. A pigtail catheter advanced to t he ascending aorta and then the left ventricle. 30 degree KHAN left ventriculogram was performed. Pu llback pressures were measured. The catheter was removed from the patient. Injection of the right f emoral artery sheath showed normal placement. The sheath was removed and sealed with an Angio-Seal p roduct. The venous sheath was removed and sealed with direct pressure. The patient was moved to the holding area. There were no immediate complications. Findings. Hemodynamics. RA 10 RV 48/2/10 Pulmonary cavity wedge pressure of 20 Pulmonary artery of 48/22/26 LV 94/18 Aortic root 96/58 Saturations PA. 61.2 RV. 64.8 RA. 62.6 Femoral artery 96.0 Shelby cardiac output 4.75 Shelby cardiac index 1.95 Coronaries. Left main. The left main was a normal size vessel with no lesions. Left anterior descending. The LAD was a moderate size vessel with normal distribution. It had a mid 50% lesion. Left circumflex. The left circumflex was a dominant vessel. It had no lesions. Right coronary artery. The right coronary is a small nondominant vessel. It had no lesions. Left ventriculogram. Normal LV systolic function with an ejection fraction of 50 to 55%. <Conclusion> Moderate single-vessel coronary artery disease. Intact LV systolic function. Elevated right-sided heart pressures. Signed by : Darby Villegas MD Electronically Approved : 12/17/2021 12:40:38
[2021-12-18 02:56] VITALS: BP 126/81
[2021-12-18] MEDS: PANTOPRAZOLE 40 MG TABLET.DR. PO SCH (05:27)
[2021-12-18] MEDS: IPRATRPIUM/ALBUTEROL 0.5/2.5MG 3 ML NEBU. NEB SCH ×4 (06:09→20:45)
[2021-12-18 07:00] VITALS: BP 136/90
[2021-12-18] MEDS: INSULIN LISPRO 300 UNITS/3 ML VIAL. SQ SCH ×3 (08:00→17:00)
[2021-12-18] MEDS: MAGNESIUM OXIDE 400 MG TABLET PO SCH (08:11)
[2021-12-18] MEDS: POTASSIUM CHLORIDE 20 MEQ TABLET.ER. PO SCH (08:11)
[2021-12-18] MEDS: LACTOBACILLUS RHAMNOSUS GG 1 CAPSULE. PO SCH ×2 (08:12→20:17)
[2021-12-18] MEDS: DOCUSATE SODIUM 100 MG CAPSULE. PO SCH (08:12)
[2021-12-18] MEDS: POLYETHYLENE GLYCOL 3350 17 GM PACKET. PO SCH ×3 (08:13→20:22)
[2021-12-18] MEDS: FUROSEMIDE 100 MG/10 ML VIAL. IVP SCH ×2 (08:13→14:25)
--- NOTE | 2021-12-18 10:51 | PDOC ---
ULISES HOUGH MANAGER STATISTICAL PROGRAMMING 12/18/21 1051: CARDIO Progress Notes Date and Time Date of Service 12/18/2021 Time of Evaluation 1020 Subjective Subjective: No Chest Pain, No shortness of breath, No Palpitations Vitals Vitals Vital Signs Date Time Temp Pulse Resp B/P (MAP) Pulse Ox O2 Delivery O2 Flow Rate FiO2 12/18/21 08:12 84 126/81 12/18/21 08:00 Nasal Cannula 6.0 12/18/21 07:00 96.8 19 96 96.8 Weight Weight [ ] Input and Output Intake and Output Intake and Output 12/18/21 07:00 Intake Total 230 ml Output Total 1850 ml Balance -1620 ml Intake Oral 230 ml Output Urine Total 1850 ml Laboratory Labs Laboratory Tests Test 12/17/21 11:47 12/17/21 16:58 12/17/21 21:22 12/18/21 07:39 Glucose (Fingerstick) 119 mg/dL (70-99) 179 mg/dL (70-99) 136 mg/dL (70-99) 126 mg/dL (70-99) Microbiology Micro Microbiology 12/03/21 Blood Culture - Final, Complete NO GROWTH AFTER 5 DAYS Physical Exam HEENT: Neck Supple W Full Motion Chest: Symmetric LUNGS: Other (diminished throughout. on NC) Heart: irregularly irregular (AFIB) Abdomen: Soft N/T, Other (obese) Extremities: Other (1+ bilateral LE pitting edema) Neurology: alert, oriented, follow commands Assessment Assessment 1. Acute on chronic respiratory failure, AECOPD, CHF, cor pulmonale 2. Acute on chronic diastolic CHF; echo 08/19 with preserved LV systolic function. better compensated. RHC revealed elevated right-sided heart pressures. 3. PAFIB; rate controlled 4. DM2 with hypoglycemic reaction: per PCP 5. Hypertension; controlled 6. HLP 7. BALTA, obesity hypoventilation syndrome 8. CAD; Moderate single-vessel coronary artery disease to LAD Recommendations Continue Lasix, BMP today will need potassium replacement Cardizem for rate control Continue Eliquis for stroke prophylaxis. Secondary prevention measures BiPAP PRN Ongoing lung optimization Follow up with Dr. Rothman on January 28 2:30. OK to transfer to SNU Will consider for outpt CVN Justicifation of Admission Dx: Justifications for Admission: Justification of Admission Dx: Yes Respiratory Failure: Severe Resp Distress JENNIFFER ROTHMAN MD 12/19/21 0607: CARDIO Progress Notes Assessment Assessment Patient seen and examined. Agree with CROSS TIE MAKER's assessment and plan. Acute on chronic diastolic heart failure better compensated Right heart cath showed slightly elevated right sided filling pressures Left heart cath did not show any significant coronary stenosis and LVEDP normal Atrial fibrillation rate controlled Continue current medical regimen ULISES HOUGH APRN Dec 18, 2021 10:51 JENNIFFER ROTHMAN MD Dec 19, 2021 06:07
[2021-12-18 11:00] VITALS: BP 109/92
[2021-12-18] MEDS ORDERED: POTASSIUM CHLORIDE 20 MEQ TABLET.ER. PO SCH (11:00)
--- NOTE | 2021-12-18 11:31 | PDOC ---
PULMONARY PROGRESS NOTES DATE: 12/18/21 TIME: 11:31 Subjective Sitting up in chair, currently on BiPAP 16/05 40% and O2 saturation of 95% Feels better Awaiting rehab placement Vitals Vital Signs Date Time Temp Pulse Resp B/P (MAP) Pulse Ox O2 Delivery O2 Flow Rate FiO2 12/18/21 11:24 99 BiPAP/CPAP 12/18/21 08:12 84 126/81 12/18/21 08:00 6.0 12/18/21 07:00 96.8 19 96.8 ROS: No Nausea, No Chest Pain, No Abdominal Pain, No Increase Cough General: Alert, No acute distress HEENT: Other (nc at perrl bipap mask on ) Lungs: Clear, Other (Decreased breath sounds bilaterally) Cardiovascular: S1, S2 Abdomen: Soft, Non-tender Neuro Exam: Alert Extremities: Other (3+ pitting edema) Skin: Warm Labs Laboratory Tests Test 12/16/21 11:42 12/16/21 16:36 12/16/21 19:41 12/16/21 20:37 Glucose (Fingerstick) 150 mg/dL (70-99) 137 mg/dL (70-99) 204 mg/dL (70-99) SARS-CoV-2 RNA (MONIQUE) Negative (Negative) Test 12/17/21 03:05 12/17/21 08:04 12/17/21 11:47 12/17/21 16:58 Sodium Level 135 mmol/L (136-145) Potassium Level 3.7 mmol/L (3.5-5.1) Chloride Level 93 mmol/L (98-107) Carbon Dioxide Level 36 mmol/L (21-32) Anion Gap 6 (6-14) Blood Urea Nitrogen 22 mg/dL (8-26) Creatinine 1.1 mg/dL (0.7-1.3) Estimated GFR (Cockcroft-Gault) 69.5 Glucose Level 120 mg/dL (70-99) Calcium Level 8.1 mg/dL (8.5-10.1) Magnesium Level 2.2 mg/dL (1.8-2.4) Glucose (Fingerstick) 150 mg/dL (70-99) 119 mg/dL (70-99) 179 mg/dL (70-99) Test 12/17/21 21:22 12/18/21 07:39 12/18/21 11:06 Glucose (Fingerstick) 136 mg/dL (70-99) 126 mg/dL (70-99) 132 mg/dL (70-99) Laboratory Tests Test 12/17/21 11:47 12/17/21 16:58 12/17/21 21:22 12/18/21 07:39 Glucose (Fingerstick) 119 mg/dL (70-99) 179 mg/dL (70-99) 136 mg/dL (70-99) 126 mg/dL (70-99) Test 12/18/21 11:06 Glucose (Fingerstick) 132 mg/dL (70-99) Medications Active Scripts Medications Dose Route/Sig Max Daily Dose Days Date Category Furosemide 40 Mg Tablet 3 Tab PO DAILY 12/03/21 Reported Prednisone 20 Mg Tablet 1 Tab PO DAILY 5 09/30/21 Rx Eliquis (Apixaban) 5 Mg Tablet 5 Mg PO BID 30 09/30/21 Rx Diltiazem 24Hr Cd (Diltiazem HCl) 240 Mg Cap.er.24h 240 Mg PO DAILY 30 09/30/21 Rx Advair 500-50 Diskus (Fluticasone/Salmeterol) 1 Each Disk.w.dev 1 Puff INH BID 09/24/21 Reported Albuterol Sulfate Neb Soln (Albuterol Sulfate) 2.5 Mg/3 Ml Vial.neb 2.5 Mg NEB PRN Q4-6HRS PRN 06/12/21 Reported Glyxambi 25 mg-5 mg Tablet (Empagliflozin/Linagliptin) 1 Each Tablet 1 Each PO DAILY 01/03/21 Reported [Albuterol Sulfate] 2.5 MG/3 ML Nebu 2.5 Mg NEB PRN Q2HR PRN 09/26/14 Rx Metformin Hcl Er (Metformin Hcl) 500 Mg Tab.er.24 500 Mg PO BID 11/26/13 Reported Lisinopril 5 Mg Tablet 10 Mg PO DAILY 11/26/13 Reported Glimepiride 4 Mg Tablet 4 Mg PO BID 11/26/13 Reported Spiriva (Tiotropium Carey) 18 Mcg Cap.w.dev 18 Mcg IH DAILY 11/26/13 Reported Impression . 1. Acute on chronic hypoxic and hypercapnic respiratory failure secondary to multifactorial etiologies including a combination of acute on chronic right heart failure, AECOPD and Afib with RVR 2. Metabolic toxic encephalopathy 3. The patient with underlying severe chronic obstructive pulmonary disease and now comes in with worsening respiratory failure. Acute on chronic obstructive pulmonary disease exacerbation is another trigger. 4. The patient with obesity hypoventilation syndrome and chronic cor pulmonale. On home oxygen at 6 liters and BiPAP at nighttime. 5. Possible sepsis 6. Atrial fibrillation with rapid ventricular response, also contributing to heart failure. 7. Fully vaccinated for COVID. An influenza screen and COVID is negative. 8. Abnormal chest x-ray consistent with congestive heart failure. Plan . 02 titration , currently BiPAP 18/6 20 40% bipap prn during day cont at night setting reviewed Diuresis per cardiology monitor k cr Long-term prognosis is poor DVT prophylaxis Continue Eliquis Labs reviewed. need snu since he is frequently requiring BiPAP. Accepted at skilled care and discharge tomorrow discussed w pt IRAIS HICKS MD Dec 18, 2021 11:31
--- NOTE | 2021-12-18 12:05 | PDOC ---
[facility] [facility] PROGRESS NOTE Date of Service DOS: DATE: 12/18/21 TIME: 12:01 Chief Complaint Chief Complaint Sepsis Acute hypoxic/hypercapnic respiratory failure requiring BiPAP support Right lower lobe pneumonia, possible gram-negative organisms possible aspiration Hemodynamic instability, possible septic shock A. fib RVR Acute electrolyte derangementhyponatremia, likely hypervolemic Acute on chronic respiratory acidosis Lactic acidemia Elevated BNP suggestive of volume overload History of COPD History of diabetes mellitus type 2 History of tobacco misuse Refractory hypoglycemia related to sulfonylurea use - can stop d5 today History of Present Illness History of Present Illness Mr Pelayo is a 56-year-old male with past medical history of CHF, COPD on 6 L home O2, diabetes mellitus 2 Who comes in with shortness of breath for the past several weeks. The past few days has worsened to the point where he needed to come to the ED for further evaluation. Patient is on torsemide at home for his CHF. Patient currently denies any chest pain or fevers or cough or body aches or dysuria or hematuria or abdominal pain or diarrhea. 12/13- trying to get to skilled for rehab , off BIPAP PRN, looks abvout the same. agitation , dyspnea with PT, 12/14, very weak, was getting a chair bath, and I asked him to try to get into the shower later. not strong enough to DC home, is struggling some with his ADLs 12/15: Able to sit in chair but uses BiPAP almost immediately. Extremely weak. Still with was 3 L urine output on IV Lasix twice daily. Will need skilled rehab when transition to p.o. diuretics. 12/16: Seen sitting in chair on BiPAP. Still has significant urine output per Ylons. On Lasix 80 mg IV twice daily. K3.8. Still appears to have a low ago with diuresis over the next couple days. No chest pain but still short of breath and weak 12/17: N.p.o. for left right heart catheterization today, single vessel disease, no interventions, RVSP 20mmHg. Still having excellent diuresis. CR bumped to 1.1 today. Wearing his BiPAP well overnight. Very weak plans on skilled rehab 12/18: Sitting in chair on BiPAP 18/ 40% and O2 saturation of 95%. Feels some abdominal swelling. Feels reassured about his cardiac catheterization. Worried about his respiratory status. Counseled that he only continue pulmonary rehabilitation. Awaiting rehab placement in the next 24 hours Vitals/I&O Vitals/I&O: Vital Signs Date Time Temp Pulse Resp B/P (MAP) Pulse Ox O2 Delivery O2 Flow Rate FiO2 12/18/21 11:24 99 BiPAP/CPAP 12/18/21 08:12 84 126/81 12/18/21 08:00 6.0 12/18/21 07:00 96.8 19 96.8 I & O 12/17/21 12/17/21 12/18/21 15:00 23:00 07:00 Intake Total 0 ml 200 ml 30 ml Output Total 1400 ml 450 ml Balance 0 ml -1200 ml -420 ml Physical Exam General: No acute distress Heart: Other (Irregular rhythm) Lungs: Clear, Other (Decreased breath sounds bilaterally) Abdomen: Normal bowel sounds Extremities: No cyanosis, Other (3-4+ bilateral LE pitting edema) Skin: No rashes, Other (tinea pedis bilaterally) Labs Labs: Laboratory Tests Test 12/17/21 16:58 12/17/21 21:22 12/18/21 07:39 12/18/21 11:06 Glucose (Fingerstick) 179 mg/dL (70-99) 136 mg/dL (70-99) 126 mg/dL (70-99) 132 mg/dL (70-99) Assessment and Plan Assessmemt and Plan Problems Medical Problems: (1) Atrial fibrillation with RVR Status: Acute (2) CHF exacerbation Status: Acute (3) COPD exacerbation Status: Acute (4) Pneumonia Status: Acute Comment Review of Relevant I have reviewed the following items wade (where applicable) has been applied. Justifications for Admission Other Justification Acute hypoxemic respiratory failure ABY GUERIN MD Dec 18, 2021 12:05
[2021-12-18] MEDS: APIXABAN 5 MG TABLET. PO SCH ×2 (12:18→20:18)
[2021-12-18 13:09] LABS: CALCIUM 7.7 mg/dL (8.5-10.1); CREATININE 1.1 mg/dL (0.7-1.3); GFR 69.5
[2021-12-18 13:26] LABS: POTASSIUM 3.6 mmol/L (3.5-5.1)
[2021-12-18 15:00] VITALS: BP 52/25
[2021-12-18 19:00] VITALS: BP 149/73
[2021-12-18] MEDS: SENNOSIDES 8.6 MG TABLET PO PRN (20:21)
[2021-12-18] MEDS ORDERED: ATORVASTATIN CALCIUM 20 MG TABLET PO SCH (21:00)
[2021-12-18 22:53] VITALS: BP 112/81
[2021-12-19 02:38] VITALS: BP 109/69
[2021-12-19] MEDS: PANTOPRAZOLE 40 MG TABLET.DR. PO SCH (06:00)
[2021-12-19 07:00] VITALS: BP 122/76
[2021-12-19] MEDS: IPRATRPIUM/ALBUTEROL 0.5/2.5MG 3 ML NEBU. NEB SCH ×3 (07:44→15:29)
[2021-12-19] MEDS: INSULIN LISPRO 300 UNITS/3 ML VIAL. SQ SCH ×2 (08:00→11:37)
[2021-12-19] MEDS: APIXABAN 5 MG TABLET. PO SCH (08:10)
[2021-12-19] MEDS: POTASSIUM CHLORIDE 20 MEQ TABLET.ER. PO SCH (08:10)
[2021-12-19] MEDS: MAGNESIUM OXIDE 400 MG TABLET PO SCH (08:11)
[2021-12-19] MEDS: POLYETHYLENE GLYCOL 3350 17 GM PACKET. PO SCH (08:11)
[2021-12-19] MEDS: LACTOBACILLUS RHAMNOSUS GG 1 CAPSULE. PO SCH (08:11)
[2021-12-19] MEDS: FUROSEMIDE 100 MG/10 ML VIAL. IVP SCH ×2 (08:12→14:04)
[2021-12-19] MEDS: DOCUSATE SODIUM 100 MG CAPSULE. PO SCH (08:19)
[2021-12-19 08:53] LABS: CHOLESTEROL/HDL RATIO 3.4
--- NOTE | 2021-12-19 09:00 | PDOC ---
[facility] [facility] PROGRESS NOTE Date of Service DOS: DATE: 12/19/21 TIME: 08:59 Chief Complaint Chief Complaint Sepsis Acute hypoxic/hypercapnic respiratory failure requiring BiPAP support Right lower lobe pneumonia, possible gram-negative organisms possible aspiration Hemodynamic instability, possible septic shock A. fib RVR Acute electrolyte derangementhyponatremia, likely hypervolemic Acute on chronic respiratory acidosis Lactic acidemia Elevated BNP suggestive of volume overload History of COPD History of diabetes mellitus type 2 History of tobacco misuse Refractory hypoglycemia related to sulfonylurea use - can stop d5 today History of Present Illness History of Present Illness Mr Pelayo is a 56-year-old male with past medical history of CHF, COPD on 6 L home O2, diabetes mellitus 2 Who comes in with shortness of breath for the past several weeks. The past few days has worsened to the point where he needed to come to the ED for further evaluation. Patient is on torsemide at home for his CHF. Patient currently denies any chest pain or fevers or cough or body aches or dysuria or hematuria or abdominal pain or diarrhea. 12/13- trying to get to skilled for rehab , off BIPAP PRN, looks abvout the same. agitation , dyspnea with PT, 12/14, very weak, was getting a chair bath, and I asked him to try to get into the shower later. not strong enough to DC home, is struggling some with his ADLs 12/15: Able to sit in chair but uses BiPAP almost immediately. Extremely weak. Still with was 3 L urine output on IV Lasix twice daily. Will need skilled rehab when transition to p.o. diuretics. 12/16: Seen sitting in chair on BiPAP. Still has significant urine output per Lyons. On Lasix 80 mg IV twice daily. K3.8. Still appears to have a low ago with diuresis over the next couple days. No chest pain but still short of breath and weak 12/17: N.p.o. for left right heart catheterization today, single vessel disease, no interventions, RVSP 20mmHg. Still having excellent diuresis. CR bumped to 1.1 today. Wearing his BiPAP well overnight. Very weak plans on skilled rehab 12/18: Sitting in chair on BiPAP 18/6 40% and O2 saturation of 95%. Feels some abdominal swelling. Feels reassured about his cardiac catheterization. Worried about his respiratory status. Counseled that he only continue pulmonary rehabilitation. Awaiting rehab placement in the next 24 hours 12/19: Chair on BiPAP patient is a 40% O2 saturations 95%. Feels well able to ambulate without assistance though he does have desaturations need to turn his O2 up to 8 L/min but improves with sitting. He has a toilet riser now. Plans to go to acute rehab today Vitals/I&O Vitals/I&O: Vital Signs Date Time Temp Pulse Resp B/P (MAP) Pulse Ox O2 Delivery O2 Flow Rate FiO2 12/19/21 08:10 94 122/76 12/19/21 07:44 96 BiPAP/CPAP 12/19/21 02:38 97.8 18 97.8 12/18/21 19:00 6.0 I & O 12/18/21 12/18/21 12/19/21 15:00 23:00 07:00 Output Total 400 ml 1700 ml Balance -400 ml -1700 ml Physical Exam General: No acute distress Heart: Other (Irregular rhythm) Lungs: Clear, Other (Decreased breath sounds bilaterally) Abdomen: Normal bowel sounds Extremities: No cyanosis, Other (3-4+ bilateral LE pitting edema) Skin: No rashes, Other (tinea pedis bilaterally) Labs Labs: Laboratory Tests Test 12/18/21 11:06 12/18/21 12:54 12/18/21 17:27 12/18/21 18:51 Glucose (Fingerstick) 132 mg/dL (70-99) 126 mg/dL (70-99) 183 mg/dL (70-99) Sodium Level 137 mmol/L (136-145) Potassium Level 3.6 mmol/L (3.5-5.1) Chloride Level 97 mmol/L (98-107) Carbon Dioxide Level 37 mmol/L (21-32) Anion Gap 3 (6-14) Blood Urea Nitrogen 23 mg/dL (8-26) Creatinine 1.1 mg/dL (0.7-1.3) Estimated GFR (Cockcroft-Gault) 69.5 Glucose Level 122 mg/dL (70-99) Calcium Level 7.7 mg/dL (8.5-10.1) Test 12/19/21 04:00 12/19/21 07:42 Triglycerides Level 70 mg/dL (0-150) Cholesterol Level 133 mg/dL (0-200) LDL Cholesterol, Calculated 80 mg/dL (0-100) VLDL Cholesterol, Calculated 14 mg/dL (0-40) Non-HDL Cholesterol Calculated 94 mg/dL (0-129) HDL Cholesterol 39 mg/dL (40-60) Cholesterol/HDL Ratio 3.4 Glucose (Fingerstick) 130 mg/dL (70-99) Assessment and Plan Assessmemt and Plan Problems Medical Problems: (1) Atrial fibrillation with RVR Status: Acute (2) CHF exacerbation Status: Acute (3) COPD exacerbation Status: Acute (4) Pneumonia Status: Acute Comment Review of Relevant I have reviewed the following items wade (where applicable) has been applied. Medications: Current Medications Medications (Trade) Dose Ordered Sig/Theresa Route PRN Reason Start Time Stop Time Status Last Admin Dose Admin Potassium Chloride (Klor-Con) 20 meq DAILYWBKFT PO 12/18/21 11:00 12/18/21 14:55 DC 12/18/21 12:18 Apixaban (Eliquis) 5 mg BID PO 12/18/21 11:00 12/19/21 08:10 Atorvastatin Calcium (Lipitor) 20 mg QHS PO 12/18/21 21:00 12/18/21 20:17 Justifications for Admission Other Justification Acute hypoxemic respiratory failure ABY GUERIN MD Dec 19, 2021 09:00
[2021-12-19] MEDS ORDERED: POTA20TA4 PO (09:06)
[2021-12-19] MEDS ORDERED: MAGN400T48 PO (09:06)
[2021-12-19] MEDS ORDERED: DOCU-109 PO (09:06)
[2021-12-19] MEDS ORDERED: ACET325T21 PO (09:06)
[2021-12-19] MEDS ORDERED: ATOR20TA58 PO (09:06)
[2021-12-19] MEDS ORDERED: INSU100I46 SQ (09:06)
[2021-12-19] MEDS ORDERED: SIME80TA14 PO (09:06)
[2021-12-19] MEDS ORDERED: PANT40TA77 PO (09:06)
--- NOTE | 2021-12-19 09:07 | SNU/HH DC ---
DISCHARGE ORDERS DISCHARGE INFORMATION: DISCHARGE DATE: Dec 19, 2021 FINAL DIAGNOSIS Problems Medical Problems: (1) Atrial fibrillation with RVR Status: Acute (2) CHF exacerbation Status: Acute (3) COPD exacerbation Status: Acute (4) Pneumonia Status: Acute CONDITION ON DISCHARGE: Stable CODE STATUS: Code Status: Full [facility]CI: SNF STAY <30 DAYS: Yes POST DISCHARGE ORDERS: ACTIVITY ORDERS: No restrictions WEIGHT BEARING STATUS: No restrictions DIET AFTER DISCHARGE: ADA WOUND/INCISION CARE: No wound care needed CHECKS AFTER DISCHARGE: CHECKS AFTER DISCHARGE: Check blood press - daily, Check blood sugar, ac/hs COMMENTS: venous & arterial FOLLOW-UP: LAB ORDERS FOR FOLLOW-UP: BMP, Mg weekly Additional Instructions: BiPAP #6 as needed abnormal sleeping. O2 6 L/min continuous and 8 L with ambulation TREATMENT/EQUIPMENT ORDERS: ADAPTIVE EQUIPMENT NEEDED: None RESPIRATORY EQUIPMENT NEEDED: Oxygen (6-8), BiPAP (18/6) Physical Therapy For: Evalulation/Treatment Occupational Therapy For: Evaluation/Treatment DISCHARGE MEDICATIONS: Home Meds Active Scripts Simethicone (SIMETHICONE) 80 Mg Tab.chew, 0.5 TAB PO Q6HRS for gas for 10 Days, #20 TAB 0 Refills Prov:ABY GUERIN MD 12/19/21 Insulin Lispro (Insulin Lispro Kwikpen U-100) 100 Unit/1 Ml Insuln.pen, 0-9 UNIT SQ TIDACHC for DM2 for 30 Days, #1 EACH Prov:ABY GUERIN MD 12/19/21 Potassium Chloride (POTASSIUM CHLORIDE ) 20 Meq Tablet.er, 20 MEQ PO DAILYWBKFT for CHF for 30 Days, #30 TAB.SR Prov:ABY GUERIN MD 12/19/21 Pantoprazole Sodium (PANTOPRAZOLE SODIUM ) 40 Mg Tablet.dr, 40 MG PO DAILYAC for GERD for 30 Days, #30 TAB.SR Prov:ABY GUERIN MD 12/19/21 Docusate Sodium (COLACE) 100 Mg Capsule, 100 MG PO DAILY for Constipation for 30 Days, #30 CAP Prov:ABY GUERIN MD 12/19/21 Magnesium Oxide (MAGNESIUM OXIDE) 400 Mg Tablet, 400 MG PO DAILY for CHF for 30 Days, #30 TAB Prov:ABY GUERIN MD 12/19/21 Acetaminophen (ACETAMINOPHEN) 325 Mg Tablet, 650 MG PO PRN Q4HRS PRN for TEMP OVER 100.4F OR MILD PAIN for 30 Days, #120 TAB Prov:ABY GUERIN MD 12/19/21 Atorvastatin Calcium (ATORVASTATIN CALCIUM) 20 Mg Tablet, 20 MG PO QHS for HLD for 30 Days, #30 TAB 5 Refills Prov:ABY GUERIN MD 12/19/21 Apixaban (ELIQUIS) 5 Mg Tablet, 5 MG PO BID for stroke prevention for 30 Days, #60 TAB 2 Refills Prov:LEEROY LUIS MD 09/30/21 Diltiazem HCl (Diltiazem 24Hr Cd) 240 Mg Cap.er.24h, 240 MG PO DAILY for heart rate for 30 Days, #30 CAP.SR 2 Refills Prov:LEEROY LUIS MD 09/30/21 [Albuterol Sulfate] 2.5 MG/3 ML NEBU No Conflict Check, 2.5 MG NEB PRN Q2HR PRN for DYSPNEA, #120 3 Refills Prov:Génesis CESAR MD 09/26/14 Reported Medications Furosemide (FUROSEMIDE) 40 Mg Tablet, 3 TAB PO DAILY for CHF, #30 TAB 5 Refills 12/03/21 Fluticasone/Salmeterol (ADVAIR 500-50 DISKUS) 1 Each Disk.w.dev, 1 PUFF INH BID for 09/24/21 Albuterol Sulfate (ALBUTEROL SULFATE NEB SOLN) 2.5 Mg/3 Ml Vial.neb, 2.5 MG NEB PRN Q4-6HRS PRN for SHORTNESS OF BREATH, EACH 0 Refills 06/12/21 Empagliflozin/Linagliptin (Glyxambi 25 mg-5 mg Tablet) 1 Each Tablet, 1 EACH PO DAILY for dm, TAB 01/03/21 Metformin Hcl (METFORMIN HCL ER) 500 Mg Tab.er.24, 500 MG PO BID 11/26/13 Lisinopril (LISINOPRIL) 5 Mg Tablet, 10 MG PO DAILY for htn 11/26/13 Tiotropium [place] (SPIRIVA) 18 Mcg Cap.w.dev, 18 MCG IH DAILY 11/26/13 Discontinued Reported Medications Glimepiride (GLIMEPIRIDE) 4 Mg Tablet, 4 MG PO BID 11/26/13 Discontinued Scripts Prednisone (PREDNISONE) 20 Mg Tablet, 1 TAB PO DAILY for copd exacerbation for 5 Days, #5 TAB Prov:LEEROY LUIS MD 09/30/21 ABY GUERIN MD Dec 19, 2021 09:07
--- NOTE | 2021-12-19 09:09 | PDOC3 ---
Discharge Summary Visit Information Date of Admission: Dec 03, 2021 Date of Discharge: Dec 19, 2021 Admitting Diagnosis: Afib with RVR Final Diagnosis Problems Medical Problems: (1) Atrial fibrillation with RVR Status: Acute (2) CHF exacerbation Status: Acute (3) COPD exacerbation Status: Acute (4) Pneumonia Status: Acute Brief Hospital Course Allergies Allergies Coded Allergies Type Severity Reaction Last Updated Verified No Known Drug Allergies 02/15/15 No Vital Signs Vital Signs Date Time Temp Pulse Resp B/P (MAP) Pulse Ox O2 Delivery O2 Flow Rate FiO2 12/19/21 08:10 94 122/76 12/19/21 07:44 96 BiPAP/CPAP 12/19/21 02:38 97.8 18 97.8 12/18/21 19:00 6.0 Lab Results Laboratory Tests Test 12/17/21 11:47 12/17/21 16:58 12/17/21 21:22 12/18/21 07:39 Glucose (Fingerstick) 119 mg/dL (70-99) 179 mg/dL (70-99) 136 mg/dL (70-99) 126 mg/dL (70-99) Test 12/18/21 11:06 12/18/21 12:54 12/18/21 17:27 12/18/21 18:51 Glucose (Fingerstick) 132 mg/dL (70-99) 126 mg/dL (70-99) 183 mg/dL (70-99) Sodium Level 137 mmol/L (136-145) Potassium Level 3.6 mmol/L (3.5-5.1) Chloride Level 97 mmol/L (98-107) Carbon Dioxide Level 37 mmol/L (21-32) Anion Gap 3 (6-14) Blood Urea Nitrogen 23 mg/dL (8-26) Creatinine 1.1 mg/dL (0.7-1.3) Estimated GFR (Cockcroft-Gault) 69.5 Glucose Level 122 mg/dL (70-99) Calcium Level 7.7 mg/dL (8.5-10.1) Test 12/19/21 04:00 12/19/21 07:42 Triglycerides Level 70 mg/dL (0-150) Cholesterol Level 133 mg/dL (0-200) LDL Cholesterol, Calculated 80 mg/dL (0-100) VLDL Cholesterol, Calculated 14 mg/dL (0-40) Non-HDL Cholesterol Calculated 94 mg/dL (0-129) HDL Cholesterol 39 mg/dL (40-60) Cholesterol/HDL Ratio 3.4 Glucose (Fingerstick) 130 mg/dL (70-99) Laboratory Tests Test 12/18/21 11:06 12/18/21 12:54 12/18/21 17:27 12/18/21 18:51 Glucose (Fingerstick) 132 mg/dL (70-99) 126 mg/dL (70-99) 183 mg/dL (70-99) Sodium Level 137 mmol/L (136-145) Potassium Level 3.6 mmol/L (3.5-5.1) Chloride Level 97 mmol/L (98-107) Carbon Dioxide Level 37 mmol/L (21-32) Anion Gap 3 (6-14) Blood Urea Nitrogen 23 mg/dL (8-26) Creatinine 1.1 mg/dL (0.7-1.3) Estimated GFR (Cockcroft-Gault) 69.5 Glucose Level 122 mg/dL (70-99) Calcium Level 7.7 mg/dL (8.5-10.1) Test 12/19/21 04:00 12/19/21 07:42 Triglycerides Level 70 mg/dL (0-150) Cholesterol Level 133 mg/dL (0-200) LDL Cholesterol, Calculated 80 mg/dL (0-100) VLDL Cholesterol, Calculated 14 mg/dL (0-40) Non-HDL Cholesterol Calculated 94 mg/dL (0-129) HDL Cholesterol 39 mg/dL (40-60) Cholesterol/HDL Ratio 3.4 Glucose (Fingerstick) 130 mg/dL (70-99) Brief Hospital Course Sepsis Acute hypoxic/hypercapnic respiratory failure requiring BiPAP support Right lower lobe pneumonia, possible gram-negative organisms possible aspiration Hemodynamic instability, possible septic shock A. fib RVR Acute electrolyte derangementhyponatremia, likely hypervolemic Acute on chronic respiratory acidosis Lactic acidemia Elevated BNP suggestive of volume overload History of COPD History of diabetes mellitus type 2 History of tobacco misuse Refractory hypoglycemia related to sulfonylurea use - can stop d5 today History of Present Illness History of Present Illness Mr Pelayo is a 56-year-old male with past medical history of CHF, COPD on 6 L home O2, diabetes mellitus 2 Who comes in with shortness of breath for the past several weeks. The past few days has worsened to the point where he needed to come to the ED for further evaluation. Patient is on torsemide at home for his CHF. Patient currently denies any chest pain or fevers or cough or body aches or dysuria or hematuria or abdominal pain or diarrhea. 12/13- trying to get to skilled for rehab , off BIPAP PRN, looks abvout the same. agitation , dyspnea with PT, 12/14, very weak, was getting a chair bath, and I asked him to try to get into the shower later. not strong enough to DC home, is struggling some with his ADLs 12/15: Able to sit in chair but uses BiPAP almost immediately. Extremely weak. Still with was 3 L urine output on IV Lasix twice daily. Will need skilled rehab when transition to p.o. diuretics. 12/16: Seen sitting in chair on BiPAP. Still has significant urine output per [place]. On Lasix 80 mg IV twice daily. K3.8. Still appears to have a low ago with diuresis over the next couple days. No chest pain but still short of breath and weak 12/17: N.p.o. for left right heart catheterization today, single vessel disease, no interventions, RVSP 20mmHg. Still having excellent diuresis. CR bumped to 1.1 today. Wearing his BiPAP well overnight. Very weak plans on skilled rehab 12/18: Sitting in chair on BiPAP 18/6 40% and O2 saturation of 95%. Feels some abdominal swelling. Feels reassured about his cardiac catheterization. Worried about his respiratory status. Counseled that he only continue pulmonary rehabilitation. Awaiting rehab placement in the next 24 hours 12/19: Chair on BiPAP patient is a 40% O2 saturations 95%. Feels well able to ambulate without assistance though he does have desaturations need to turn his O2 up to 8 L/min but improves with sitting. He has a toilet riser now. Plans to go to acute rehab today Discharge Information Condition at Discharge: Improved Follow Up: Weeks (1) Disposition/Orders: D/C to Another Facility (HCR) Scheduled Apixaban (Eliquis) 5 Mg Tablet, 5 MG PO BID for stroke prevention for 30 Days, #60 Ref 2 Prescribed by: LEEROY LUIS MD on 09/30/21 1208 Last Action: Continued on 12/04/21 1003 by ULISES HOUGH Atorvastatin Calcium (Atorvastatin Calcium) 20 Mg Tablet, 20 MG PO QHS for HLD for 30 Days, #30 Ref 5 Prescribed by: ABY GUERIN MD on 12/19/21 0906 Diltiazem HCl (Diltiazem 24Hr Cd) 240 Mg Cap.er.24h, 240 MG PO DAILY for heart rate for 30 Days, #30 Ref 2 Prescribed by: LEEROY LUIS MD on 09/30/21 1208 Docusate Sodium (Colace) 100 Mg Capsule, 100 MG PO DAILY for Constipation for 30 Days, #30 Prescribed by: ABY GUERNI MD on 12/19/21 0906 Empagliflozin/Linagliptin (Glyxambi 25 mg-5 mg Tablet) 1 Each Tablet, 1 EACH PO DAILY for dm, (Reported) Entered as Reported by: DAVID BENITEZ on 01/03/21 2258 Fluticasone/Salmeterol (Advair 500-50 Diskus) 1 Each Disk.w.dev, 1 PUFF INH BID for , (Reported) Entered as Reported by: Cortez Pimentel on 09/24/21 0557 Furosemide (Furosemide) 40 Mg Tablet, 3 TAB PO DAILY for CHF, #30 Ref 5 (Reported) Entered as Reported by: RAJAT ROBBINS on 12/03/211835 Last Taken: Unknown Dose on Unknown Date & Time Last Action: New Order on 12/03/211835 by RAJAT ROBBINS Insulin Lispro (Insulin Lispro Kwikpen U-100) 100 Unit/1 Ml Insuln.pen, 0-9 UNIT SQ TIDACHC for DM2 for 30 Days, #1 Prescribed by: ABY GUERIN MD on 12/19/21 0906 Lisinopril (Lisinopril) 5 Mg Tablet, 10 MG PO DAILY for htn, (Reported) Entered as Reported by: OMAIRA MAHER on 11/26/13 1510 Magnesium Oxide (Magnesium Oxide) 400 Mg Tablet, 400 MG PO DAILY for CHF for 30 Days, #30 Prescribed by: ABY GUERIN MD on 12/19/21 0906 Metformin Hcl (Metformin Hcl Er) 500 Mg Tab.er.24, 500 MG PO BID, (Reported) Entered as Reported by: OMAIRA MAHER on 11/26/13 1510 Pantoprazole Sodium (Pantoprazole Sodium ) 40 Mg Tablet.dr, 40 MG PO DAILYAC for GERD for 30 Days, #30 Prescribed by: ABY GUERIN MD on 12/19/21 0906 Potassium Chloride (Potassium Chloride ) 20 Meq Tablet.er, 20 MEQ PO DAILYWBKFT for CHF for 30 Days, #30 Prescribed by: ABY GUERIN MD on 12/19/21 0906 Simethicone (Simethicone) 80 Mg Tab.chew, 0.5 TAB PO Q6HRS for gas for 10 Days, #20 Ref 0 Prescribed by: ABY GUERIN MD on 12/19/21 0906 Tiotropium [place] (Spiriva) 18 Mcg Cap.w.dev, 18 MCG IH DAILY, (Reported) Entered as Reported by: OMAIRA MAHER on 11/26/13 151 Scheduled PRN Acetaminophen (Acetaminophen) 325 Mg Tablet, 650 MG PO PRN Q4HRS PRN for TEMP OVER 100.4F OR MILD PAIN for 30 Days, #120 Prescribed by: ABY GUERIN MD on 12/19/21 0906 Albuterol Sulfate (Albuterol Sulfate Neb Soln) 2.5 Mg/3 Ml Vial.neb, 2.5 MG NEB PRN Q4-6HRS PRN for SHORTNESS OF BREATH, Ref 0 (Reported) Entered as Reported by: LORNA BEARD RN on 06/12/212053 [Albuterol Sulfate] 2.5 MG/3 ML NEBU, 2.5 MG NEB PRN Q2HR PRN for DYSPNEA, #120 Ref 3 Prescribed by: AMPARO CESAR on 09/26/14 1342 Discontinued Medications Glimepiride (Glimepiride) 4 Mg Tablet, 4 MG PO BID, (Reported) Entered as Reported by: OMAIRA MAHER on 11/26/13 151 Prednisone (Prednisone) 20 Mg Tablet, 1 TAB PO DAILY for copd exacerbation for 5 Days, #5 Prescribed by: LEEROY LUIS MD on 09/30/21 1208 Justicifation of Admission Dx: Justifications for Admission: Justification of Admission Dx: Yes Respiratory Failure: Severe Resp Distress ABY GUERIN MD Dec 19, 2021 09:09
--- NOTE | 2021-12-19 10:11 | PDOC ---
PULMONARY PROGRESS NOTES DATE: 12/19/21 TIME: 10:07 Subjective Sitting up in chair, comfortably. Awaiting rehab placement Vitals Vital Signs Date Time Temp Pulse Resp B/P (MAP) Pulse Ox O2 Delivery O2 Flow Rate FiO2 12/19/21 08:10 94 122/76 12/19/21 07:44 96 BiPAP/CPAP 12/19/21 07:00 94.5 24 6.0 94.5 ROS: No Nausea, No Chest Pain, No Abdominal Pain, No Increase Cough General: Alert, No acute distress HEENT: Other (nc at perrl bipap mask on ) Lungs: Clear, Other (Decreased breath sounds bilaterally) Cardiovascular: S1, S2 Abdomen: Soft, Non-tender Neuro Exam: Alert Extremities: Other (3+ pitting edema) Skin: Warm Labs Laboratory Tests Test 12/17/21 11:47 12/17/21 16:58 12/17/21 21:22 12/18/21 07:39 Glucose (Fingerstick) 119 mg/dL (70-99) 179 mg/dL (70-99) 136 mg/dL (70-99) 126 mg/dL (70-99) Test 12/18/21 11:06 12/18/21 12:54 12/18/21 17:27 12/18/21 18:51 Glucose (Fingerstick) 132 mg/dL (70-99) 126 mg/dL (70-99) 183 mg/dL (70-99) Sodium Level 137 mmol/L (136-145) Potassium Level 3.6 mmol/L (3.5-5.1) Chloride Level 97 mmol/L (98-107) Carbon Dioxide Level 37 mmol/L (21-32) Anion Gap 3 (6-14) Blood Urea Nitrogen 23 mg/dL (8-26) Creatinine 1.1 mg/dL (0.7-1.3) Estimated GFR (Cockcroft-Gault) 69.5 Glucose Level 122 mg/dL (70-99) Calcium Level 7.7 mg/dL (8.5-10.1) Test 12/19/21 04:00 12/19/21 07:42 Triglycerides Level 70 mg/dL (0-150) Cholesterol Level 133 mg/dL (0-200) LDL Cholesterol, Calculated 80 mg/dL (0-100) VLDL Cholesterol, Calculated 14 mg/dL (0-40) Non-HDL Cholesterol Calculated 94 mg/dL (0-129) HDL Cholesterol 39 mg/dL (40-60) Cholesterol/HDL Ratio 3.4 Glucose (Fingerstick) 130 mg/dL (70-99) Laboratory Tests Test 12/18/21 11:06 12/18/21 12:54 12/18/21 17:27 12/18/21 18:51 Glucose (Fingerstick) 132 mg/dL (70-99) 126 mg/dL (70-99) 183 mg/dL (70-99) Sodium Level 137 mmol/L (136-145) Potassium Level 3.6 mmol/L (3.5-5.1) Chloride Level 97 mmol/L (98-107) Carbon Dioxide Level 37 mmol/L (21-32) Anion Gap 3 (6-14) Blood Urea Nitrogen 23 mg/dL (8-26) Creatinine 1.1 mg/dL (0.7-1.3) Estimated GFR (Cockcroft-Gault) 69.5 Glucose Level 122 mg/dL (70-99) Calcium Level 7.7 mg/dL (8.5-10.1) Test 12/19/21 04:00 12/19/21 07:42 Triglycerides Level 70 mg/dL (0-150) Cholesterol Level 133 mg/dL (0-200) LDL Cholesterol, Calculated 80 mg/dL (0-100) VLDL Cholesterol, Calculated 14 mg/dL (0-40) Non-HDL Cholesterol Calculated 94 mg/dL (0-129) HDL Cholesterol 39 mg/dL (40-60) Cholesterol/HDL Ratio 3.4 Glucose (Fingerstick) 130 mg/dL (70-99) Medications Active Scripts Medications Dose Route/Sig Max Daily Dose Days Date Category Furosemide 40 Mg Tablet 3 Tab PO DAILY 12/03/21 Reported Prednisone 20 Mg Tablet 1 Tab PO DAILY 5 09/30/21 Rx Eliquis (Apixaban) 5 Mg Tablet 5 Mg PO BID 30 09/30/21 Rx Diltiazem 24Hr Cd (Diltiazem HCl) 240 Mg Cap.er.24h 240 Mg PO DAILY 30 09/30/21 Rx Advair 500-50 Diskus (Fluticasone/Salmeterol) 1 Each Disk.w.dev 1 Puff INH BID 09/24/21 Reported Albuterol Sulfate Neb Soln (Albuterol Sulfate) 2.5 Mg/3 Ml Vial.neb 2.5 Mg NEB PRN Q4-6HRS PRN 06/12/21 Reported Glyxambi 25 mg-5 mg Tablet (Empagliflozin/Linagliptin) 1 Each Tablet 1 Each PO DAILY 01/03/21 Reported [Albuterol Sulfate] 2.5 MG/3 ML Nebu 2.5 Mg NEB PRN Q2HR PRN 09/26/14 Rx Metformin Hcl Er (Metformin Hcl) 500 Mg Tab.er.24 500 Mg PO BID 11/26/13 Reported Lisinopril 5 Mg Tablet 10 Mg PO DAILY 11/26/13 Reported Glimepiride 4 Mg Tablet 4 Mg PO BID 11/26/13 Reported Spiriva (Tiotropium Amor[place]) 18 Mcg Cap.w.dev 18 Mcg IH DAILY 11/26/13 Reported Impression . 1. Acute on chronic hypoxic and hypercapnic respiratory failure secondary to multifactorial etiologies including a combination of acute on chronic right heart failure, AECOPD and Afib with RVR 2. Metabolic toxic encephalopathy 3. The patient with underlying severe chronic obstructive pulmonary disease and now comes in with worsening respiratory failure. Acute on chronic obstructive pulmonary disease exacerbation is another trigger. 4. The patient with obesity hypoventilation syndrome and chronic cor pulmonale. On home oxygen at 6 liters and BiPAP at nighttime. 5. Possible sepsis 6. Atrial fibrillation with rapid ventricular response, also contributing to heart failure. 7. Fully vaccinated for COVID. An influenza screen and COVID is negative. 8. Abnormal chest x-ray consistent with congestive heart failure. Plan . 02 titration , currently 6L O2 bipap prn during day cont at night setting reviewed Diuresis per cardiology monitor k cr Long-term prognosis is poor DVT prophylaxis Continue Eliquis Labs reviewed. need snu since he is frequently requiring BiPAP. Accepted at skilled care and anticipate discharge later today discussed w pt IRAIS HICKS MD Dec 19, 2021 10:10
[2021-12-19 10:27] VITALS: BP 107/76
--- NOTE | 2021-12-19 10:30 | PDOC ---
ULISES HOUGH [facility] 12/19/21 1030: CARDIO Progress Notes Date and Time Date of Service 12/19/2021 Time of Evaluation 0940 Subjective Subjective: No Chest Pain, No shortness of breath, No Palpitations Vitals Vitals Vital Signs Date Time Temp Pulse Resp B/P (MAP) Pulse Ox O2 Delivery O2 Flow Rate FiO2 12/19/21 08:10 94 122/76 12/19/21 07:44 96 BiPAP/CPAP 12/19/21 07:00 94.5 24 6.0 94.5 Weight Weight [ ] Input and Output Intake and Output Intake and Output 12/19/21 07:00 Output Total 2100 ml Balance -2100 ml Output Urine Total 2100 ml Laboratory Labs Laboratory Tests Test 12/18/21 11:06 12/18/21 12:54 12/18/21 14:55 12/18/21 17:27 Glucose (Fingerstick) 132 mg/dL (70-99) 126 mg/dL (70-99) Sodium Level 137 mmol/L (136-145) Potassium Level 3.6 mmol/L (3.5-5.1) Chloride Level 97 mmol/L (98-107) Carbon Dioxide Level 37 mmol/L (21-32) Anion Gap 3 (6-14) Blood Urea Nitrogen 23 mg/dL (8-26) Creatinine 1.1 mg/dL (0.7-1.3) Estimated GFR (Cockcroft-Gault) 69.5 Glucose Level 122 mg/dL (70-99) Calcium Level 7.7 mg/dL (8.5-10.1) SARS-CoV-2 RNA (MONIQUE) Negative (Negative) Test 12/18/21 18:51 12/19/21 04:00 12/19/21 07:42 Glucose (Fingerstick) 183 mg/dL (70-99) 130 mg/dL (70-99) Triglycerides Level 70 mg/dL (0-150) Cholesterol Level 133 mg/dL (0-200) LDL Cholesterol, Calculated 80 mg/dL (0-100) VLDL Cholesterol, Calculated 14 mg/dL (0-40) Non-HDL Cholesterol Calculated 94 mg/dL (0-129) HDL Cholesterol 39 mg/dL (40-60) Cholesterol/HDL Ratio 3.4 Microbiology Micro Microbiology 12/03/21 Blood Culture - Final, Complete NO GROWTH AFTER 5 DAYS Physical Exam HEENT: Neck Supple W Full Motion Chest: Symmetric LUNGS: Other (diminished throughout, bipap in place) Heart: irregularly irregular (AFIB) Abdomen: Soft N/T, Other (obese) Extremities: Other (2+ bilateral LE pitting edema) Neurology: alert, oriented, follow commands Assessment Assessment 1. Acute on chronic respiratory failure, AECOPD, CHF, cor pulmonale 2. Acute on chronic diastolic CHF; echo 08/19 with preserved LV systolic function. better compensated. RHC revealed elevated right-sided heart pressures. 3. PAFIB; rate controlled 4. DM2 with hypoglycemic reaction: per PCP 5. Hypertension; controlled 6. HLP 7. BALTA, obesity hypoventilation syndrome 8. CAD; Moderate single-vessel coronary artery disease to LAD Recommendations Continue Lasix, BMP today will need potassium replacement Cardizem for rate control Continue Eliquis for stroke prophylaxis. Secondary prevention measures BiPAP PRN Ongoing lung optimization Follow up with Dr. Rothman on January 28 2:30. OK to transfer to [facility] Will consider for outpt CVN Justicifation of Admission Dx: Justifications for Admission: Justification of Admission Dx: Yes Respiratory Failure: Severe Resp Distress JENNIFFER ROTHMAN MD 12/19/21 1649: CARDIO Progress Notes Assessment Assessment Patient seen and examined. Agree with ACCOUNTS RECEIVABLE REPRESENTATIVE's assessment and plan. Acute on chronic diastolic heart failure better compensated Right heart cath showed slightly elevated right sided filling pressures Left heart cath did not show any significant coronary stenosis and LVEDP normal Atrial fibrillation rate controlled Continue current medical regimen We will consider outpatient cardioversion. ULISES HOUGH APRN Dec 19, 2021 10:30 JENNIFFER ROTHMAN MD Dec 19, 2021 16:49
[2021-12-19 14:29] VITALS: BP 115/70
--- NOTE | 2021-12-19 15:45 | NUR ---
Discharge Note: ELIUD RICCI[facility] Discharge instructions and discharge home medications reviewed with Other facility and a copy given. All questions have been answered and understanding verbalized. Patient discharged to [facility] with transport via wheelchair.
== END 2021-12-19 15:45 | DRG 871 ==
LOC: ER 11:45 → ED HOLD 13:47 → 6 SOUTH 14:56 → 1 WEST ICU 12-04 14:08 → 6 SOUTH 12-07 19:10
PROVIDERS: ADMIT Internal Medicine; ATTEND Internal Medicine
PROC: 5A0935A Assistance with Respiratory Ventilation, Less than 24 Consecutive Hours, High Flow/Velocity Cannula (ICD-10-PCS; 2021-12-06)
PROC: 5A09557 Assistance with Respiratory Ventilation, Greater than 96 Consecutive Hours, Continuous Positive Airway Pressure (ICD-10-PCS; 2021-12-06)
PROC: 5A0935A Assistance with Respiratory Ventilation, Less than 24 Consecutive Hours, High Flow/Velocity Cannula (ICD-10-PCS; 2021-12-07)
PROC: 5A0935A Assistance with Respiratory Ventilation, Less than 24 Consecutive Hours, High Flow/Velocity Cannula (ICD-10-PCS; 2021-12-08)
PROC: 5A0935A Assistance with Respiratory Ventilation, Less than 24 Consecutive Hours, High Flow/Velocity Cannula (ICD-10-PCS; 2021-12-09)
PROC: 5A0935A Assistance with Respiratory Ventilation, Less than 24 Consecutive Hours, High Flow/Velocity Cannula (ICD-10-PCS; 2021-12-10)
PROC: 5A0935A Assistance with Respiratory Ventilation, Less than 24 Consecutive Hours, High Flow/Velocity Cannula (ICD-10-PCS; 2021-12-11)
PROC: 5A0935A Assistance with Respiratory Ventilation, Less than 24 Consecutive Hours, High Flow/Velocity Cannula (ICD-10-PCS; 2021-12-12)
PROC: 5A0935A Assistance with Respiratory Ventilation, Less than 24 Consecutive Hours, High Flow/Velocity Cannula (ICD-10-PCS; 2021-12-13)
PROC: 4A023N8 Measurement of Cardiac Sampling and Pressure, Bilateral, Percutaneous Approach (ICD-10-PCS; principal; 2021-12-17)
PROC: B2111ZZ Fluoroscopy of Multiple Coronary Arteries using Low Osmolar Contrast (ICD-10-PCS; 2021-12-17)
PROC: B2151ZZ Fluoroscopy of Left Heart using Low Osmolar Contrast (ICD-10-PCS; 2021-12-17)
DX: A41.9 Sepsis, unspecified organism (principal); J96.22 Acute and chronic respiratory failure with hypercapnia; J15.6 Pneumonia due to other Gram-negative bacteria; G92.8 Other toxic encephalopathy; I50.33 Acute on chronic diastolic (congestive) heart failure; J96.21 Acute and chronic respiratory failure with hypoxia; E66.2 Morbid (severe) obesity with alveolar hypoventilation; E87.1 Hypo-osmolality and hyponatremia; I47.1 Supraventricular tachycardia; I48.92 Unspecified atrial flutter; J44.0 Chronic obstructive pulmonary disease with (acute) lower respiratory infection; J44.1 Chronic obstructive pulmonary disease with (acute) exacerbation; B35.3 Tinea pedis; E11.649 Type 2 diabetes mellitus with hypoglycemia without coma; E78.5 Hyperlipidemia, unspecified; E87.8 Other disorders of electrolyte and fluid balance, not elsewhere classified; F17.200 Nicotine dependence, unspecified, uncomplicated; I11.0 Hypertensive heart disease with heart failure; I25.10 Atherosclerotic heart disease of native coronary artery without angina pectoris; I27.81 Cor pulmonale (chronic); I48.0 Paroxysmal atrial fibrillation; I50.82 Biventricular heart failure; T38.3X5A Adverse effect of insulin and oral hypoglycemic [antidiabetic] drugs, initial encounter; Z20.822 Contact with and (suspected) exposure to COVID-19; Z82.49 Family history of ischemic heart disease and other diseases of the circulatory system; Z83.3 Family history of diabetes mellitus; Z99.81 Dependence on supplemental oxygen; K21.9 Gastro-esophageal reflux disease without esophagitis
CPT/HCPCS: 93460; 96365; 96366; 96368; 96375; 99285; G0269; 36415; 36600; 71045; 80048; 80053; 80061; 80202; 82805; 82962; 83605; 83735; 83880; 84100; 84145; 84484; 85007; 85025; 87040; 87426; 87804; 93005; 94640; 94660; 94760; 99152; 99153; C1773; C1894; J0456; J0692; J0696; J1160; J1610; J1644; J1650; J1815; J1940; J2250; J2930; J3010; J3370; J3490; J7040; J7042; J7050; J7060; Q9967; U0003; U0005; 97110-GO; 97110-GP; 97116-GP; 97530-GP; 97535-GO; G0378; J7030

== ENCOUNTER 2022-02-19 11:04 | Inpatient (IN) | payer MEDICARE ==
[~2022-02-19] VITALS: Ht 190.5 cm; Wt 140.3 kg
[~2022-02-19 11:04] MED LIST changes: +ACET325T21 PO; +ATOR20TA58 PO; +DOCU-109 PO; +FURO40TA4 PO; +INSU100I46 SQ; +MAGN400T48 PO; +POTA20TA4 PO; +SIME80TA14 PO
[2022-02-19 11:27] LABS: BASO % 1 % (0-3); EOS % 1 % (0-3); HEMATOCRIT 41.5 % (39.0-53.0); HEMOGLOBIN 13.2 g/dL (13.0-17.5); LYMPH # 1.1 x10^3/uL (1.0-4.8); LYMPH % 14 % (24-48); MEAN CORPUSCULAR HEMOGLOBIN 31 pg (25-35); MEAN CORPUSCULAR HGB CONC 32 g/dL (31-37); MEAN CORPUSCULAR VOLUME 99 fL (79-100); MONO # 0.7 x10^3/uL (0.0-1.1); MONO % 8 % (0-9); NEUT # 6.3 x10^3/uL (1.8-7.7); NEUT % 77 % (31-73); PLATELET COUNT 261 x10^3/uL (140-400); RED BLOOD COUNT 4.21 x10^6/uL (4.30-5.70); RED CELL DISTRIBUTION WIDTH 15.6 % (11.5-14.5); WHITE BLOOD COUNT 8.2 x10^3/uL (4.0-11.0)
[2022-02-19] MEDS ORDERED: IPRATRPIUM/ALBUTEROL 0.5/2.5MG 3 ML NEBU. NEB ONE (11:30)
--- NOTE | 2022-02-19 11:38 | RAD ---
AP chest. HISTORY: Short of air AP view of the chest was compared with a study from December 06. There are small bilateral pleural effu sions which have increased since the prior study. The heart is enlarged. There is mild chronic inters titial lung disease. There are superimposed interstitial infiltrates or pulmonary edema. IMPRESSION: 1. Bilateral pleural effusions. 2. Interstitial infiltrates or pulmonary edema with worsening in the pattern compared to November. Electronically signed by: Shahbaz Pelayo MD (02/19/2022 11:36 AM) [facility]
[2022-02-19 11:39] LABS: CALCIUM 8.3 mg/dL (8.5-10.1); CREATININE 2.2 mg/dL (0.7-1.3); GFR 31.1; POTASSIUM 4.5 mmol/L (3.5-5.1)
[2022-02-19 11:45] LABS: ALBUMIN 2.6 g/dL (3.4-5.0); DIRECT BILIRUBIN 0.2 mg/dL (0.0-0.2); TOTAL BILIRUBIN 0.7 mg/dL (0.2-1.0); TOTAL PROTEIN 6.7 g/dL (6.4-8.2)
[2022-02-19] MEDS ORDERED: FUROSEMIDE 40 MG/4 ML VIAL. IVP ONE (11:45)
--- NOTE | 2022-02-19 11:47 | PHYS DOC ---
Past Medical History Past Medical History: CHF, COPD, Diabetes-Type II Additional Past Medical Histor: History of COPD on 6 L of home oxygen, history of CHF on torsemide Past Surgical History: Other Additional Past Surgical Histo: vasectomy Smoking Status: Former Smoker Alcohol Use: None Drug Use: None General Adult EDM: Chief Complaint: SHORTNESS OF BREATH HPI: HPI: 57-year-old male past medical history of CHF, obesity, COPD on 8 L nasal cannula and hypertension, presents the ED via EMS with worsening shortness of breath for the past 3 days stating his abdomen has increased in size and has worsening bilateral lower extremity swelling. No relief with breathing treatment with EMS prior to read arrival. Saturating in the 80s on CPAP. Reports he is vaccinated for COVID and has no known history of Covid. Review of Systems: Review of Systems: Constitutional: Denies fever or chills. [] Eyes: Denies change in visual acuity. [] HENT: Denies nasal congestion or sore throat. [] Respiratory: Denies cough or or hemoptysis Cardiovascular: Denies syncope or palpitations GI: Denies abdominal pain, nausea, vomiting, bloody stools or diarrhea. [] : Denies dysuria or Musculoskeletal: Denies back pain or joint pain. [] Integument: Denies rash or diaphoresis Neurologic: Denies headache, focal weakness or sensory changes. [] Endocrine: Denies polyuria or polydipsia. [] Lymphatic: Denies swollen glands. [] Psychiatric: Denies depression or anxiety. [] Heart Score: C/O Chest Pain: No Risk Factors: Risk Factors: DM, Current or recent (<one month) smoker, HTN, HLP, family history of CAD, obesity. Risk Scores: Score 0 - 3: 2.5% MACE over next 6 weeks - Discharge Home Score 4 - 6: 20.3% MACE over next 6 weeks - Admit for Clinical Observation Score 7 - 10: 72.7% MACE over next 6 weeks - Early Invasive Strategies Current Medications: Current Medications Medications (Trade) Dose Ordered Sig/Theresa Start Time Stop Time Status Last Admin Dose Admin Albuterol/ Ipratropium (Duoneb) 9 ml 1X ONCE 02/19/22 11:30 02/19/22 11:31 DC Allergies: Allergies: Allergies Coded Allergies Type Severity Reaction Last Updated Verified No Known Drug Allergies 02/19/22 No Physical Exam: PE: Constitutional: Increased work of breathing, afebrile HENT: Normocephalic, atraumatic, Eyes: EOMI, conjunctiva normal, no discharge. Neck: Normal range of motion, supple, DVT present Cardiovascular: S1/2 present, regular rhythm Lungs & Thorax: Speaking in full sentences but is very tachypneic with minimal wheezing, bibasilar rales present, bilateral equal chest rise, patient is tach ypneic which worsens off of BiPAP Abdomen: soft, no tenderness, basal abdomen Skin: Warm, dry, no erythema, no rash. [] Extremities: no cyanosis, bilateral equal pitting lower extremity edema Neurologic: Alert and oriented X 3, normal motor function, normal sensory function, no focal deficits noted. [] Psychologic: Affect normal, judgement normal, mood normal. [] Current Patient Data: Labs: Laboratory Tests Test 02/19/22 11:15 White Blood Count 8.2 x10^3/uL (4.0-11.0) Red Blood Count 4.21 x10^6/uL (4.30-5.70) L Hemoglobin 13.2 g/dL (13.0-17.5) Hematocrit 41.5 % (39.0-53.0) Mean Corpuscular Volume 99 fL (79-100) Mean Corpuscular Hemoglobin 31 pg (25-35) Mean Corpuscular Hemoglobin Concent 32 g/dL (31-37) Red Cell Distribution Width 15.6 % (11.5-14.5) H Platelet Count 261 x10^3/uL (140-400) Neutrophils (%) (Auto) 77 % (31-73) H Lymphocytes (%) (Auto) 14 % (24-48) L Monocytes (%) (Auto) 8 % (0-9) Eosinophils (%) (Auto) 1 % (0-3) Basophils (%) (Auto) 1 % (0-3) Neutrophils # (Auto) 6.3 x10^3/uL (1.8-7.7) Lymphocytes # (Auto) 1.1 x10^3/uL (1.0-4.8) Monocytes # (Auto) 0.7 x10^3/uL (0.0-1.1) Eosinophils # (Auto) 0.0 x10^3/uL (0.0-0.7) Basophils # (Auto) 0.0 x10^3/uL (0.0-0.2) Sodium Level 134 mmol/L (136-145) L Potassium Level 4.5 mmol/L (3.5-5.1) Chloride Level 95 mmol/L (98-107) L Carbon Dioxide Level 33 mmol/L (21-32) H Anion Gap 6 (6-14) Blood Urea Nitrogen 27 mg/dL (8-26) H Creatinine 2.2 mg/dL (0.7-1.3) H Estimated GFR (Cockcroft-Gault) 31.1 Glucose Level 136 mg/dL (70-99) H Calcium Level 8.3 mg/dL (8.5-10.1) L Total Bilirubin Pending Direct Bilirubin Pending Aspartate Amino Transferase (AST) Pending Alanine Aminotransferase (ALT) Pending Alkaline Phosphatase Pending Creatine Kinase Pending Total Protein Pending Albumin Pending Laboratory Tests 02/19/22 11:15 Laboratory Tests 02/19/22 11:15 Vital Signs: Vital Signs Date Time Temp Pulse Resp B/P (MAP) Pulse Ox O2 Delivery O2 Flow Rate FiO2 02/19/22 11:24 95 02/19/22 11:22 BiPAP/CPAP 02/19/22 11:10 98.4 117 25 142/88 (106) 98.4 EKG: EKG: sinus tachycardia 121 bpm, APCs present, extreme right axis deviation present, QTC 463, cannot appreciate obvious ST elevations or ST depressions Radiology/Procedures: Radiology/Procedures: IMAGING REPORT Signed PATIENT: ELIUD RICCI ACCOUNT: [id number] : 1965 LOCATION: ER AGE: 57 SEX: M EXAM STATUS: REG ER ORD. PHYSICIAN: ARJUN YI DO REASON: SHORT OF AIR PROCEDURE: PORTABLE CHEST 1V AP chest. HISTORY: Short of air AP view of the chest was compared with a study from December 06. There are small bilateral pleural effusions which have increased since the prior study. The heart is enlarged. There is mild chronic interstitial lung disease. There are superimposed interstitial infiltrates or pulmonary edema. IMPRESSION: 1. Bilateral pleural effusions. 2. Interstitial infiltrates or pulmonary edema with worsening in the pattern compared to November. Electronically signed by: Shahbaz Pelayo MD (02/19/2022 11:36 AM) [facility] DICTATED and SIGNED BY: SHAHBAZ PELAYO MD DATE: 02/19/22 1135 IMAGING REPORT Signed PATIENT: ELIUD RICCI ACCOUNT: [id number] : 1965 LOCATION: ER AGE: 57 SEX: M EXAM STATUS: REG ER ORD. PHYSICIAN: ARJUN YI DO REASON: jeanne PROCEDURE: CT ABDOMEN PELVIS WO CONTRAST INDICATION: Reason: jeanne / Spl. Instructions: / History: COMPARISON: None. TECHNIQUE: Axial CT images were obtained through the abdomen and pelvis without intravenous contrast. One or more of the following individualized dose reduction techniques were utilized for this examination: 1. Automated exposure control; 2. Adjustment of the mA and/or kV according to patient size; 3. Use of iterative reconstruction technique. FINDINGS: Groundglass and interstitial opacities at lung base. There is also more dense consolidative component as well as nodular component. Small left greater than right pleural effusion with some suspected pleural thickening. There is also some suspected lymphadenopathy in the partially visualized chest base. For example adjacent to the distal esophagus measuring approximately 2 cm short axis. Heart is enlarged. Vascular: Severe atherosclerotic disease. Hepatobiliary: Nodular contour. Appears enlarged. Postcholecystectomy. Limited assessment for lesion secondary to lack of contrast. Small fluid adjacent to the liver which may be subcapsular. Pancreas: Patient is to the fat in the region. Spleen: Spleen unremarkable. Renal/Bladder: No hydronephrosis. Haziness the fat in the region but this is seen elsewhere in the abdomen and pelvis as well. Urinary bladder is distended at time of exam. Low-density exophytic lesion of the right kidney measuring approximately 20 mm. Gastrointestinal: Tortuous redundant appearance of the sigmoid colon. There is some edema to the fat adjacent to the distal sigmoid and rectal region with some prominence of the wall. Edema and fluid within the left paracolic gutter. The appendix does not appear grossly inflamed. Degenerative changes the spine with multilevel central canal and neural foraminal stenosis. Degenerative changes of the hips. Pars defects at L5 IMPRESSION: * No evidence of bowel obstruction or appendicitis. There is some wall thickening of the left side of the colon with some fluid tracking within the area which appears higher than simple density which could be from some blood or debris within. Given this abuts the colon in a region of wall thickening causes such as a colonic mass or diverticulitis is within the differential. * Tortuous redundant sigmoid colon which could predispose the patient to sigmo id volvulus. * At the chest base there is left greater than right pleural effusion as well as dense opacity at the left lung base and groundglass as well as interstitial opacities at the right lung base. These findings could be associated with causes such as pneumonia or pulmonary edema but a follow-up will be needed to ensure this resolves to exclude lung neoplasm contributing. There is also ly mphadenopathy at the chest base which could be evaluated at that time as well. The pleural effusions have a somewhat loculated appearance with thickened rind. This is only partially seen. * Diffuse edema to the soft tissues which could be related to volume overload but given that this edema is seen adjacent to the duodenum, pancreas and kidney would correlate with symptoms and lab markers to ensure that none of this is secondary to inflammation from urinary tract infection, pancreatitis or duo denitis/duodenal ulcer. * Right renal lesion which is incompletely characterized and could be solid or cystic. If additional clarification is needed nonemergent ultrasound could assess. * Nodular liver contour. Causes such as cirrhosis not excluded Electronically signed by: Robert Us MD (02/19/2022 12:46 PM) [id number] DICTATED and SIGNED BY: ROBERT US MD DATE: 02/19/22 1225 Course & Med Decision Making: Course & Med Decision Making Pertinent Labs and Imaging studies reviewed. (See chart for details) Concern for CHF exacerbation, requiring BiPAP for hypoxia and respiratory effort. Lasix given in the emergency department. Patient also with acute renal insufficiency. Will admit for further medical management. Patient stable time of admission agrees with this plan. I have spoken with the patient and/or caregivers. I have explained the patient's condition, diagnosis and treatment plan based on the information available to me at this time. I have answered the patient's and/or caregivers questions and answered any concerns. The patient and/or caregivers have as good an understanding of the patient's diagnosis, condition and treatment plan as can be expected at this point. The patient has been stabilized within the capability of the emergency department. The patient will be transported for further care and management or will be moved to an observation or inpatient service. I have communicated with the staff or medical practitioner taking over this patient's care. Zoya Disclaimer: Zoya Disclaimer: This electronic medical record was generated, in whole or in part, using a voice recognition dictation system. Departure Departure Impression: Primary Impression: Hypoxia Additional Impressions: Acute exacerbation of CHF (congestive heart failure) Acute kidney injury Disposition: ADMITTED INPATIENT Condition: GUARDED Referrals: Génesis CESAR MD (PCP) ARJUN YI DO Feb 19, 2022 11:47
--- NOTE | 2022-02-19 12:49 | RAD ---
INDICATION: Reason: jeanne / Spl. Instructions: / History: COMPARISON: None. TECHNIQUE: Axial CT images were obtained through the abdomen and pelvis without intravenous contrast. One or more of the following individualized dose reduction techniques were utilized for this examinat ion: 1. Automated exposure control; 2. Adjustment of the mA and/or kV according to patient size; 3 . Use of iterative reconstruction technique. FINDINGS: Groundglass and interstitial opacities at lung base. There is also more dense consolidative component as well as nodular component. Small left greater than right pleural effusion with some suspected ple ural thickening. There is also some suspected lymphadenopathy in the partially visualized chest base. For example adjacent to the distal esophagus measuring approximately 2 cm short axis. Heart is enlar ged. Vascular: Severe atherosclerotic disease. Hepatobiliary: Nodular contour. Appears enlarged. Postcholecystectomy. Limited assessment for lesion secondary to lack of contrast. Small fluid adjacent to the liver which may be subcapsular. Pancreas: Patient is to the fat in the region. Spleen: Spleen unremarkable. Renal/Bladder: No hydronephrosis. Haziness the fat in the region but this is seen elsewhere in the ab domen and pelvis as well. Urinary bladder is distended at time of exam. Low-density exophytic lesion of the right kidney measuring approximately 20 mm. Gastrointestinal: Tortuous redundant appearance of the sigmoid colon. There is some edema to the fat adjacent to the distal sigmoid and rectal region with some prominence of the wall. Edema and fluid wi thin the left paracolic gutter. The appendix does not appear grossly inflamed. Degenerative changes the spine with multilevel central canal and neural foraminal stenosis. Degenerat anh changes of the hips. Pars defects at L5 IMPRESSION: * No evidence of bowel obstruction or appendicitis. There is some wall thickening of the left side of the colon with some fluid tracking within the area which appears higher than simple density which could be from some blood or debris within. Given this abuts the colon in a region of wall thickening causes such as a colonic mass or diverticulitis is within the differential. * Tortuous redundant sigmoid colon which could predispose the patient to sigmoid volvulus. * At the chest base there is left greater than right pleural effusion as well as dense opacity at th e left lung base and groundglass as well as interstitial opacities at the right lung base. These find ings could be associated with causes such as pneumonia or pulmonary edema but a follow-up will be nee ded to ensure this resolves to exclude lung neoplasm contributing. There is also lymphadenopathy at t he chest base which could be evaluated at that time as well. The pleural effusions have a somewhat lo culated appearance with thickened rind. This is only partially seen. * Diffuse edema to the soft tissues which could be related to volume overload but given that this ed lex is seen adjacent to the duodenum, pancreas and kidney would correlate with symptoms and lab marke rs to ensure that none of this is secondary to inflammation from urinary tract infection, pancreatiti s or duodenitis/duodenal ulcer. * Right renal lesion which is incompletely characterized and could be solid or cystic. If additional clarification is needed nonemergent ultrasound could assess. * Nodular liver contour. Causes such as cirrhosis not excluded Electronically signed by: Mitch Mayfield MD (02/19/2022 12:46 PM) [id number]
[2022-02-19 13:20] VITALS: BP 124/65
--- NOTE | 2022-02-19 13:44 | EKG ---
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
--- NOTE | 2022-02-19 14:15 | PDOC1 ---
History and Physical Date of Admission Date of Admission DATE: 02/19/22 TIME: 14:12 Source Source: Chart review, Patient History of Present Illness History of Present Illness Mr Pelayo is a 57-year-old male with past medical history of CHF, COPD on 6 L home O2, diabetes mellitus 2 Who comes in with acute shortness of breath. The past few days has worsened to the point where he needed to come to the ED for further evaluation. Patient is on torsemide at home for his CHF. Patient currently denies any chest pain or fevers or cough or body aches or dysuria or hematuria or abdominal pain or diarrhea. starteed on BIPAP has been very weak before, admit here 2 months ago for similar Past Medical History Cardiovascular: CHF, HTN, Hyperlipidemia Pulmonary: COPD, Pneumonia, Other CENTRAL NERVOUS SYSTEM: Periperal neuropathy GI: GERD Heme/Onc: No pertinent hx Hepatobiliary: No pertinent hx Psych: No pertinent hx Rheumatologic: No pertinent hx Infectious disease: No pertinent hx Renal/: No pertinent hx Endocrine: Diabetes Past Surgical History Past Surgical History: Cholecystectomy, Other Family History Family History: Diabetes, Hypertension Social History Smoke: Quit ALCOHOL: none Drugs: None Current Problem List Problem List Problems Medical Problems: (1) Acute exacerbation of CHF (congestive heart failure) Status: Acute (2) Acute kidney injury Status: Acute (3) Hypoxia Status: Acute Current Medications Current Medications Current Medications Albuterol/ Ipratropium (Duoneb) 9 ml 1X ONCE NEB ; Start 02/19/22 at 11:30; Stop 02/19/22 at 11:31; Status DC Furosemide (Lasix) 60 mg ONCE ONCE IVP Last administered on 02/19/22at 11:45; Start 02/19/22 at 11:45; Stop 02/19/22 at 11:46; Status DC Active Scripts Active Simethicone 80 Mg Tab.chew 0.5 Tab PO Q6HRS 10 Days Insulin Lispro Kwikpen U-100 (Insulin Lispro) 100 Unit/1 Ml Insuln.pen 0-9 Unit SQ TIDACHC 30 Days Potassium Chloride (Potassium Chloride) 20 Meq Tablet.er 20 Meq PO DAILYWBKFT 30 Days Pantoprazole Sodium (Pantoprazole Sodium) 40 Mg Tablet.dr 40 Mg PO DAILYAC 30 Days Colace (Docusate Sodium) 100 Mg Capsule 100 Mg PO DAILY 30 Days Magnesium Oxide 400 Mg Tablet 400 Mg PO DAILY 30 Days Acetaminophen 325 Mg Tablet 650 Mg PO PRN Q4HRS PRN 30 Days Atorvastatin Calcium 20 Mg Tablet 20 Mg PO QHS 30 Days Eliquis (Apixaban) 5 Mg Tablet 5 Mg PO BID 30 Days Diltiazem 24Hr Cd (Diltiazem HCl) 240 Mg Cap.er.24h 240 Mg PO DAILY 30 Days [Albuterol Sulfate] 2.5 MG/3 ML Nebu 2.5 Mg NEB PRN Q2HR PRN Reported Furosemide 40 Mg Tablet 3 Tab PO DAILY Advair 500-50 Diskus (Fluticasone/Salmeterol) 1 Each Disk.w.dev 1 Puff INH BID Albuterol Sulfate Neb Soln (Albuterol Sulfate) 2.5 Mg/3 Ml Vial.neb 2.5 Mg NEB PRN Q4-6HRS PRN Glyxambi 25 mg-5 mg Tablet (Empagliflozin/Linagliptin) 1 Each Tablet 1 Each PO DAILY Metformin Hcl Er (Metformin Hcl) 500 Mg Tab.er.24 500 Mg PO BID Lisinopril 5 Mg Tablet 10 Mg PO DAILY Spiriva (Tiotropium [place]) 18 Mcg Cap.w.dev 18 Mcg IH DAILY Allergies Allergies: Coded Allergies: No Known Drug Allergies (Unverified , 02/19/22) ROS General: YES: Chills, Malaise PSYCHOLOGICAL ROS: No: Anxiety, Behavioral Disorder, Concentration difficultie, Decreased libido, Depression, Disorientation, Hallucinations, Hostility, Irritablity, Memory difficulties, Mood Swings, Obsessive thoughts, Physical abuse, Sexual abuse, Sleep disturbances, Suicidal ideation, Other Eyes: No Blurry vision, No Decreased vision, No Double vision, No Dry eyes, No Excessive tearing, No Eye Pain, No Itchy Eyes, No Loss of vision, No Photoph obia, No Scotomata, No Uses contacts, No Uses glasses, No Other HEENT: YES: Heacaches; No: Visual Changes, Hearing change, Nasal congestion, Nasal discharge, Oral lesions, Sinus pain, Sore Throat, Epistaxis, Sneezing, Snoring, Tinnitus, Vertigo, Vocal changes, Other Respiratory: YES: Cough, SOB with excertion Cardiovascular: No Chest Pain, No Palpitations, No Orthopnea, No Paroxysmal Noc. Dyspnea, No Edema, No Lt Headedness, No Other Gastrointestinal: Yes Nausea; No Vomiting, No Abdominal Pain, No Diarrhea, No Constipation, No Melena, No Hematochezia, No Other Genitourinary: No Dysuria, No Frequency, No Incontinence, No Hematuria, No Retention, No Discharge, No Urgency, No Pain, No Flank Pain, No Other, No , No , No , No , No , No , No Musculoskeletal: Yes Joint Stiffness; No Gait Disturbance, No Joint Pain, No Joint Swelling, No Muscle Pain, No Muscular Weakness, No Pain In:, No Swelling In:, No Other Neurological: No Behavorial Changes, No Bowel/Bladder ControlChng, No Confusion, No Dizziness, No Gait Disturbance, No Headaches, No Impaired Coord/balance, No Memory Loss, No Numbness/Tingling, No Seizures, No Speech Problems, No Tremors, No Visual Changes, No Weakness, No Other Skin: Yes Dry Skin Physical Exam General: Alert, Oriented X3, Cooperative, moderate distress HEENT: Atraumatic, PERRLA Lungs: Other (rales, limited vol, no crackles) Heart: irregularly irregular, other Abdomen: Normal bowel sounds Rectal Exam: not examined Extremities: No edema Skin: No significant lesion Neuro: Normal gait, Normal tone, Sensation intact Psych/Mental Status: Mood NL Vitals Vitals Vital Signs Date Time Temp Pulse Resp B/P (MAP) Pulse Ox O2 Delivery O2 Flow Rate FiO2 02/19/22 12:35 114 21 116/72 (87) 95 BiPAP/CPAP 02/19/22 11:10 98.4 98.4 Labs Labs Laboratory Tests Test 02/19/22 11:15 White Blood Count 8.2 x10^3/uL (4.0-11.0) Red Blood Count 4.21 x10^6/uL (4.30-5.70) Hemoglobin 13.2 g/dL (13.0-17.5) Hematocrit 41.5 % (39.0-53.0) Mean Corpuscular Volume 99 fL (79-100) Mean Corpuscular Hemoglobin 31 pg (25-35) Mean Corpuscular Hemoglobin Concent 32 g/dL (31-37) Red Cell Distribution Width 15.6 % (11.5-14.5) Platelet Count 261 x10^3/uL (140-400) Neutrophils (%) (Auto) 77 % (31-73) Lymphocytes (%) (Auto) 14 % (24-48) Monocytes (%) (Auto) 8 % (0-9) Eosinophils (%) (Auto) 1 % (0-3) Basophils (%) (Auto) 1 % (0-3) Neutrophils # (Auto) 6.3 x10^3/uL (1.8-7.7) Lymphocytes # (Auto) 1.1 x10^3/uL (1.0-4.8) Monocytes # (Auto) 0.7 x10^3/uL (0.0-1.1) Eosinophils # (Auto) 0.0 x10^3/uL (0.0-0.7) Basophils # (Auto) 0.0 x10^3/uL (0.0-0.2) Prothrombin Time 14.0 SEC (11.7-14.0) Prothromb Time International Ratio 1.1 (0.8-1.1) Activated Partial Thromboplast Time 29 SEC (24-38) Sodium Level 134 mmol/L (136-145) Potassium Level 4.5 mmol/L (3.5-5.1) Chloride Level 95 mmol/L (98-107) Carbon Dioxide Level 33 mmol/L (21-32) Anion Gap 6 (6-14) Blood Urea Nitrogen 27 mg/dL (8-26) Creatinine 2.2 mg/dL (0.7-1.3) Estimated GFR (Cockcroft-Gault) 31.1 Glucose Level 136 mg/dL (70-99) Lactic Acid Level 1.5 mmol/L (0.4-2.0) Calcium Level 8.3 mg/dL (8.5-10.1) Total Bilirubin 0.7 mg/dL (0.2-1.0) Direct Bilirubin 0.2 mg/dL (0.0-0.2) Aspartate Amino Transf (AST/SGOT) 6 U/L (15-37) Alanine Aminotransferase (ALT/SGPT) 12 U/L (16-63) Alkaline Phosphatase 84 U/L (46-116) Creatine Kinase 32 U/L (39-308) Troponin I High Sensitivity 22 ng/L (4-75) BX-Roq-B-Type Natriuretic Peptide 73881 pg/mL (0-124) Total Protein 6.7 g/dL (6.4-8.2) Albumin 2.6 g/dL (3.4-5.0) Laboratory Tests Test 02/19/22 11:15 White Blood Count 8.2 x10^3/uL (4.0-11.0) Red Blood Count 4.21 x10^6/uL (4.30-5.70) Hemoglobin 13.2 g/dL (13.0-17.5) Hematocrit 41.5 % (39.0-53.0) Mean Corpuscular Volume 99 fL (79-100) Mean Corpuscular Hemoglobin 31 pg (25-35) Mean Corpuscular Hemoglobin Concent 32 g/dL (31-37) Red Cell Distribution Width 15.6 % (11.5-14.5) Platelet Count 261 x10^3/uL (140-400) Neutrophils (%) (Auto) 77 % (31-73) Lymphocytes (%) (Auto) 14 % (24-48) Monocytes (%) (Auto) 8 % (0-9) Eosinophils (%) (Auto) 1 % (0-3) Basophils (%) (Auto) 1 % (0-3) Neutrophils # (Auto) 6.3 x10^3/uL (1.8-7.7) Lymphocytes # (Auto) 1.1 x10^3/uL (1.0-4.8) Monocytes # (Auto) 0.7 x10^3/uL (0.0-1.1) Eosinophils # (Auto) 0.0 x10^3/uL (0.0-0.7) Basophils # (Auto) 0.0 x10^3/uL (0.0-0.2) Prothrombin Time 14.0 SEC (11.7-14.0) Prothromb Time International Ratio 1.1 (0.8-1.1) Activated Partial Thromboplast Time 29 SEC (24-38) Sodium Level 134 mmol/L (136-145) Potassium Level 4.5 mmol/L (3.5-5.1) Chloride Level 95 mmol/L (98-107) Carbon Dioxide Level 33 mmol/L (21-32) Anion Gap 6 (6-14) Blood Urea Nitrogen 27 mg/dL (8-26) Creatinine 2.2 mg/dL (0.7-1.3) Estimated GFR (Cockcroft-Gault) 31.1 Glucose Level 136 mg/dL (70-99) Lactic Acid Level 1.5 mmol/L (0.4-2.0) Calcium Level 8.3 mg/dL (8.5-10.1) Total Bilirubin 0.7 mg/dL (0.2-1.0) Direct Bilirubin 0.2 mg/dL (0.0-0.2) Aspartate Amino Transf (AST/SGOT) 6 U/L (15-37) Alanine Aminotransferase (ALT/SGPT) 12 U/L (16-63) Alkaline Phosphatase 84 U/L (46-116) Creatine Kinase 32 U/L (39-308) Troponin I High Sensitivity 22 ng/L (4-75) NA-Fiw-K-Type Natriuretic Peptide 44432 pg/mL (0-124) Total Protein 6.7 g/dL (6.4-8.2) Albumin 2.6 g/dL (3.4-5.0) Images Images CARDIAC CATH 12/17, Dr. Milan . Normal LV systolic function with an ejection fraction of 50 to 55%. <Conclusion> Moderate single-vessel coronary artery disease. Intact LV systolic function. Elevated right-sided heart pressures. VTE Prophylaxis Ordered VTE Prophylaxis Devices: Yes VTE Pharmacological Prophylaxi: Yes Assessment/Plan Assessment/Plan Acute hypoxic/hypercapnic respiratory failure requiring BiPAP support acute renal failure with no UO from lasix given in ER, place iban watkins I and O, consult renal , UA pending, US SIRS Right lower lobe mass, seen before, consult PULM Tammy fib , controlled, Acute on chronic respiratory acidosis acute diastolic CHF, volume overload, History of COPD, quit smoking a couple months ago DM2 Justifications for Admission Other Justification Acute hypoxemic respiratory failure WAYLON LONG MD Feb 19, 2022 14:15
[2022-02-19] MEDS ORDERED: ACETAMINOPHEN 325 MG TABLET. PO PRN (14:45)
--- NOTE | 2022-02-19 15:25 | RAD ---
US RENAL BILAT History: Reason: acute renal failure; RT renal lesion seen on CT 02-19-22 / Spl. Instructions: / Hist ory: Comparison: CT February 19, 2022 Procedure: Transabdominal ultrasound images are obtained of the kidneys and bladder. Findings: Right kidney: measures 13.7 x 5.5 x 5.5 cm. Right renal simple cyst superiorly measures 1.8 x 1.9 cm . No hydronephrosis. Left kidney: measures 13.5 x 5.0 x 6.7 cm. Degraded evaluation due to having structures. No hydronep hrosis. Urinary bladder: No urinary bladder wall thickening. Distended urinary bladder. The IVC is normal caliber. The visualized abdominal aorta is normal caliber. IMPRESSION: 1. Degraded evaluation. 2. Distended urinary bladder. 3. Right renal cyst corresponding with CT finding. Electronically signed by: Luis Antonio Jackson DO (02/19/2022 3:22 PM) [id number]
[2022-02-19] MEDS ORDERED: PIP/TAZO PER PHARMACY MC PRN (17:15)
[2022-02-19] MEDS ORDERED: DIGOXIN IV 500 MCG/2 ML AMPUL. IV ONE (17:15)
--- NOTE | 2022-02-19 17:25 | PDOC2 ---
CONSULT Date of Consult Date of Consult DATE: 02/19/22 TIME: 17:13 Reason for Consult Reason for Consult: Left fourth digit discoloration Identification/Chief Complaint Chief Complaint Left fourth digit discoloration Source Source: Patient History of Present Illness Reason for Visit: Patient with history of diabetes, peripheral arterial disease and peripheral neuropathy who was admitted for CHF exacerbation. Patient was also found with a dark, discolored and ischemic left fourth digit without leukocytosis. At bedside, patient relates a stubbing injury 3 weeks ago and the fourth digit has been progressively getting darker without pain due to peripheral neuropathy. Patient relates chills but denies any other constitutional symptoms. They have been self managing with peroxide, Neosporin. Patient relates mild clear drainage from the fourth digit. Patient denies any significant redness, swelling to the left lower extremity. Patient denies any recent antibiotic therapy. At baseline, patient was a formal smoker, quit 2 months ago. Past Medical History Cardiovascular: CHF, HTN, Hyperlipidemia Pulmonary: COPD, Pneumonia, Other CENTRAL NERVOUS SYSTEM: Periperal neuropathy GI: GERD Heme/Onc: No pertinent hx Hepatobiliary: No pertinent hx Psych: No pertinent hx Rheumatologic: No pertinent hx Infectious disease: No pertinent hx Renal/: No pertinent hx Endocrine: Diabetes Past Surgical History Past Surgical History: Cholecystectomy, Other Family History Family History: Diabetes, Hypertension Social History ALCOHOL: none Drugs: None Lives: with Family Current Problem List Problem List Problems Medical Problems: (1) Acute exacerbation of CHF (congestive heart failure) Status: Acute (2) Acute kidney injury Status: Acute (3) Hypoxia Status: Acute Current Medications Current Medications Current Medications Albuterol/ Ipratropium (Duoneb) 9 ml 1X ONCE NEB ; Start 02/19/22 at 11:30; Stop 02/19/22 at 11:31; Status DC Furosemide (Lasix) 60 mg ONCE ONCE IVP Last administered on 02/19/22at 11:45; Start 02/19/22 at 11:45; Stop 02/19/22 at 11:46; Status DC Acetaminophen (Tylenol) 650 mg PRN Q4HRS PRN PO TEMP OVER 100.4F OR MILD PAIN; Start 02/19/22 at 14:45 Albuterol Sulfate (Ventolin Neb Soln) 2.5 mg PRN Q4HRS PRN NEB SHORTNESS OF BREATH; Start 02/19/22 at 14:45 Apixaban (Eliquis) 5 mg BID PO ; Start 02/19/22 at 21:00 Atorvastatin Calcium (Lipitor) 20 mg QHS PO ; Start 02/19/22 at 21:00 Diltiazem HCl (Cardizem 24hr Cd) 240 mg DAILY PO ; Start 02/20/22 at 09:00 Docusate Sodium (Colace) 100 mg DAILY PO ; Start 02/20/22 at 09:00 Furosemide (Lasix) 120 mg DAILY PO ; Start 02/20/22 at 09:00 Magnesium Oxide (Magnesium Oxide) 400 mg DAILY PO ; Start 02/20/22 at 09:00 Pantoprazole Sodium (Protonix) 40 mg DAILYAC PO ; Start 02/20/22 at 07:30 Simethicone (Gas-X) 40 mg Q6HRS PO ; Start 02/19/22 at 18:00 Albuterol/ Ipratropium (Duoneb) 3 ml RTQID NEB ; Start 02/19/22 at 16:00 Info (Anti-Coagulation Monitoring By Pharmacy) 1 each PRN DAILY PRN MC PER PROTOCOL; Start 02/19/22 at 15:15 Digoxin (Lanoxin) 500 mcg 1X ONCE IV ; Start 02/19/22 at 17:15; Stop 02/19/22 at 17:16 Piperacillin Sod/ Tazobactam Sod (Zosyn Per Pharmacy) 1 each PRN DAILY PRN MC SEE COMMENTS; Start 02/19/22 at 17:15; Status UNV Piperacillin Sod/ Tazobactam Sod 3.375 gm/Sodium Chloride 50 ml @ 100 mls/hr Q6HRS IV ; Start 02/19/22 at 18:00; Status UNV Active Scripts Active Simethicone 80 Mg Tab.chew 0.5 Tab PO Q6HRS 10 Days Insulin Lispro Kwikpen U-100 (Insulin Lispro) 100 Unit/1 Ml Insuln.pen 0-9 Unit SQ TIDACHC 30 Days Potassium Chloride (Potassium Chloride) 20 Meq Tablet.er 20 Meq PO DAILYWBKFT 30 Days Pantoprazole Sodium (Pantoprazole Sodium) 40 Mg Tablet.dr 40 Mg PO DAILYAC 30 Days Colace (Docusate Sodium) 100 Mg Capsule 100 Mg PO DAILY 30 Days Magnesium Oxide 400 Mg Tablet 400 Mg PO DAILY 30 Days Acetaminophen 325 Mg Tablet 650 Mg PO PRN Q4HRS PRN 30 Days Atorvastatin Calcium 20 Mg Tablet 20 Mg PO QHS 30 Days Eliquis (Apixaban) 5 Mg Tablet 5 Mg PO BID 30 Days Diltiazem 24Hr Cd (Diltiazem HCl) 240 Mg Cap.er.24h 240 Mg PO DAILY 30 Days [Albuterol Sulfate] 2.5 MG/3 ML Nebu 2.5 Mg NEB PRN Q2HR PRN Reported Furosemide 40 Mg Tablet 3 Tab PO DAILY Advair 500-50 Diskus (Fluticasone/Salmeterol) 1 Each Disk.w.dev 1 Puff INH BID Albuterol Sulfate Neb Soln (Albuterol Sulfate) 2.5 Mg/3 Ml Vial.neb 2.5 Mg NEB PRN Q4-6HRS PRN Glyxambi 25 mg-5 mg Tablet (Empagliflozin/Linagliptin) 1 Each Tablet 1 Each PO DAILY Metformin Hcl Er (Metformin Hcl) 500 Mg Tab.er.24 500 Mg PO BID Lisinopril 5 Mg Tablet 10 Mg PO DAILY Spiriva (Tiotropium [place]) 18 Mcg Cap.w.dev 18 Mcg IH DAILY Allergies Allergies: Coded Allergies: No Known Drug Allergies (Unverified , 02/19/22) ROS Review of System CONSTITUTIONAL: No fever. No chills. No dizziness. No weakness. CARDIOVASCULAR: No chest pain. No palpitations. No lower extremity edema. RESPIRATORY: No shortness of breath, cough, pain with respiration. No hemo ptysis. No dyspnea. GASTROINTESTINAL: Normal appetite. No nausea, vomiting, diarrhea. GENITOURINARY: No frequency, urgency, nocturia. No hematuria or dysuria. MUSCULOSKELETAL: No arthralgias or myalgias. INTEGUMENTARY: Refer to HPI NEUROLOGIC: No numbness or tingling of the extremities. No weakness. PSYCHIATRIC: No confusion. ENDOCRINE: No fatigue. No weakness. HEMATOLOGICAL: No bleeding. No petechiae. No bruising. ALLERGIES: No asthma. No urticaria Physical Exam Physical Exam General: Pleasant without apparent distress, AOx3 Left lower extremity focused Dermatology: -Relatively dry stable gangrenous/necrotic changes to the left fourth digit to the level of the proximal fourth phalangeal shaft. At the third interdigital space, there is mild maceration with a full-thickness ulcer at 6:00 o'clock, probe to tendon. There is no significant purulent drainage, fluctuance, proximal streaking to the forefoot Vascular: -DP is palpable but weak, nonpalpable PT due to baseline nonpitting edema -Foot is warm to touch with CFT less than 3 seconds x 5 -Erythematous patch to the dorsal fourth MTPJ is blanchable Neurology: -Light touch sensation diminished to the level of ankle MSK: -[-] TTP at fourth digit -Able to move digits -Muscle strength 5 out of 5 across ankle joint -Calf is soft and nontender Vitals VITALS Vital Signs Date Time Temp Pulse Resp B/P (MAP) Pulse Ox O2 Delivery O2 Flow Rate FiO2 02/19/22 16:25 94 02/19/22 14:04 Bi-pap 02/19/22 13:20 97.4 63 27 124/65 (84) 97.4 Labs Labs Laboratory Tests Test 02/19/22 11:15 White Blood Count 8.2 x10^3/uL (4.0-11.0) Red Blood Count 4.21 x10^6/uL (4.30-5.70) Hemoglobin 13.2 g/dL (13.0-17.5) Hematocrit 41.5 % (39.0-53.0) Mean Corpuscular Volume 99 fL (79-100) Mean Corpuscular Hemoglobin 31 pg (25-35) Mean Corpuscular Hemoglobin Concent 32 g/dL (31-37) Red Cell Distribution Width 15.6 % (11.5-14.5) Platelet Count 261 x10^3/uL (140-400) Neutrophils (%) (Auto) 77 % (31-73) Lymphocytes (%) (Auto) 14 % (24-48) Monocytes (%) (Auto) 8 % (0-9) Eosinophils (%) (Auto) 1 % (0-3) Basophils (%) (Auto) 1 % (0-3) Neutrophils # (Auto) 6.3 x10^3/uL (1.8-7.7) Lymphocytes # (Auto) 1.1 x10^3/uL (1.0-4.8) Monocytes # (Auto) 0.7 x10^3/uL (0.0-1.1) Eosinophils # (Auto) 0.0 x10^3/uL (0.0-0.7) Basophils # (Auto) 0.0 x10^3/uL (0.0-0.2) Prothrombin Time 14.0 SEC (11.7-14.0) Prothromb Time International Ratio 1.1 (0.8-1.1) Activated Partial Thromboplast Time 29 SEC (24-38) Sodium Level 134 mmol/L (136-145) Potassium Level 4.5 mmol/L (3.5-5.1) Chloride Level 95 mmol/L (98-107) Carbon Dioxide Level 33 mmol/L (21-32) Anion Gap 6 (6-14) Blood Urea Nitrogen 27 mg/dL (8-26) Creatinine 2.2 mg/dL (0.7-1.3) Estimated GFR (Cockcroft-Gault) 31.1 Glucose Level 136 mg/dL (70-99) Lactic Acid Level 1.5 mmol/L (0.4-2.0) Calcium Level 8.3 mg/dL (8.5-10.1) Total Bilirubin 0.7 mg/dL (0.2-1.0) Direct Bilirubin 0.2 mg/dL (0.0-0.2) Aspartate Amino Transf (AST/SGOT) 6 U/L (15-37) Alanine Aminotransferase (ALT/SGPT) 12 U/L (16-63) Alkaline Phosphatase 84 U/L (46-116) Creatine Kinase 32 U/L (39-308) Troponin I High Sensitivity 22 ng/L (4-75) RP-Lyv-C-Type Natriuretic Peptide 20867 pg/mL (0-124) Total Protein 6.7 g/dL (6.4-8.2) Albumin 2.6 g/dL (3.4-5.0) Laboratory Tests Test 02/19/22 11:15 White Blood Count 8.2 x10^3/uL (4.0-11.0) Red Blood Count 4.21 x10^6/uL (4.30-5.70) Hemoglobin 13.2 g/dL (13.0-17.5) Hematocrit 41.5 % (39.0-53.0) Mean Corpuscular Volume 99 fL (79-100) Mean Corpuscular Hemoglobin 31 pg (25-35) Mean Corpuscular Hemoglobin Concent 32 g/dL (31-37) Red Cell Distribution Width 15.6 % (11.5-14.5) Platelet Count 261 x10^3/uL (140-400) Neutrophils (%) (Auto) 77 % (31-73) Lymphocytes (%) (Auto) 14 % (24-48) Monocytes (%) (Auto) 8 % (0-9) Eosinophils (%) (Auto) 1 % (0-3) Basophils (%) (Auto) 1 % (0-3) Neutrophils # (Auto) 6.3 x10^3/uL (1.8-7.7) Lymphocytes # (Auto) 1.1 x10^3/uL (1.0-4.8) Monocytes # (Auto) 0.7 x10^3/uL (0.0-1.1) Eosinophils # (Auto) 0.0 x10^3/uL (0.0-0.7) Basophils # (Auto) 0.0 x10^3/uL (0.0-0.2) Prothrombin Time 14.0 SEC (11.7-14.0) Prothromb Time International Ratio 1.1 (0.8-1.1) Activated Partial Thromboplast Time 29 SEC (24-38) Sodium Level 134 mmol/L (136-145) Potassium Level 4.5 mmol/L (3.5-5.1) Chloride Level 95 mmol/L (98-107) Carbon Dioxide Level 33 mmol/L (21-32) Anion Gap 6 (6-14) Blood Urea Nitrogen 27 mg/dL (8-26) Creatinine 2.2 mg/dL (0.7-1.3) Estimated GFR (Cockcroft-Gault) 31.1 Glucose Level 136 mg/dL (70-99) Lactic Acid Level 1.5 mmol/L (0.4-2.0) Calcium Level 8.3 mg/dL (8.5-10.1) Total Bilirubin 0.7 mg/dL (0.2-1.0) Direct Bilirubin 0.2 mg/dL (0.0-0.2) Aspartate Amino Transf (AST/SGOT) 6 U/L (15-37) Alanine Aminotransferase (ALT/SGPT) 12 U/L (16-63) Alkaline Phosphatase 84 U/L (46-116) Creatine Kinase 32 U/L (39-308) Troponin I High Sensitivity 22 ng/L (4-75) JO-Twp-O-Type Natriuretic Peptide 69335 pg/mL (0-124) Total Protein 6.7 g/dL (6.4-8.2) Albumin 2.6 g/dL (3.4-5.0) Assessment/Plan Assessment/Plan Type 2 diabetes complicated with peripheral neuropathy, PAD Relatively stable and dry gangrene to the fourth digit, left Full-thickness ulcer with exposed flexor tendon at the plantar fourth digit, left -Pending x-ray of the left foot to rule out underlying osteomyelitis and soft tissue emphysema -Pending arterial Doppler to left lower extremity -Given the necrotic and gangrenous changes to the fourth digit, I recommended source control with fourth digit amputation. The challenges with wound healing are poor arterial inflow and limited soft tissue envelope to close the incision with. There is a small chance that the gangrene will progress proximally and the TMA is the next reasonable level of amputation. -The fourth digit was painted with Betadine -Twice daily dressing change by RN: [place] the fourth digit with Betadine especially in the interdigital spaces without any constrictive dressing -No leukocytosis -Antibiotics: Empirically placed on Zosyn [given the anaerobic malodor,exposed tendon], please de-escalate based on culture/pathology report - Wound cx [02/19]: Pending -Weightbearing restriction: Minimal heel touchdown weightbearing to left lower extremity -Nurse communication: -Place Prevalon boots to bilateral lower extremity while in bed Dispo: Pending arterial duplex study to left lower extremity, left foot x-ray. The short-term goal is to stabilize the left fourth digit while waiting for it to demarcate. After that, either fourth MTPJ disarticulation or TMA is determined by the soft tissue envelope survivorship and arterial inflow. I will continue to follow. APUL AMAYA DPM Feb 19, 2022 17:24
[2022-02-19] MEDS: PIPERACILLIN/TAZOBACTAM 3.375 GM in IV NORMAL SALINE 50ML 50 ML IV SCH (18:00)
[2022-02-19 19:07] VITALS: BP 102/68
[2022-02-19] MEDS: IPRATRPIUM/ALBUTEROL 0.5/2.5MG 3 ML NEBU. NEB SCH (19:34)
[2022-02-19 19:54] LABS: RBC,URINE >40 /HPF (0-2)
[2022-02-19 19:55] LABS: BACTERIA,URINE 0 /HPF (0-FEW); HYALINE CASTS, URINE MODERATE /HPF
[2022-02-19 19:56] LABS: GRANULAR CASTS,URINE FEW /HPF
[2022-02-19 20:00] LABS: INFLUENZA A PATIENT NEGATIVE (NEGATIVE); INFLUENZA B PATIENT NEGATIVE (NEGATIVE)
[2022-02-19] MEDS: ATORVASTATIN CALCIUM 20 MG TABLET PO SCH (20:42)
[2022-02-19] MEDS: SIMETHICONE 80 MG TAB.CHEW PO SCH (20:43)
[2022-02-19] MEDS ORDERED: APIXABAN 5 MG TABLET. PO SCH (21:00)
[2022-02-19 22:29] VITALS: BP 107/67
[2022-02-20] MEDS: ALBUTEROL SULFATE 2.5 MG/3 ML NEBU. NEB PRN (00:18)
[2022-02-20] MEDS: PIPERACILLIN/TAZOBACTAM 3.375 GM in IV NORMAL SALINE 50ML 50 ML IV SCH ×5 (00:21→23:56)
[2022-02-20] MEDS: SIMETHICONE 80 MG TAB.CHEW PO SCH ×5 (00:21→23:56)
[2022-02-20 02:35] VITALS: BP 94/63
--- NOTE | 2022-02-20 06:08 | RAD ---
Exam: XR FOOT_LEFT 3 VIEWS History: Fourth toe dry gangrene. Comparison: None. Findings: Osseous mineralization is normal. There is irregular cortical lucency at the medial aspect of the fou rth toe proximal phalangeal head, middle phalanx and distal index. Adjacent soft tissue irregularity in the fourth toe. No fractures are identified. Impression: 1. Cortical erosive change at the medial aspect of the fourth toe proximal phalangeal head, middle a nd distal phalanx concerning for osteomyelitis. Electronically signed by: Jose Rafael Clements MD (02/20/2022 6:05 AM) [facility]
[2022-02-20 07:00] VITALS: BP 99/60
[2022-02-20 07:19] LABS: BASO % 1 % (0-3); EOS # 0.1 x10^3/uL (0.0-0.7); EOS % 1 % (0-3); HEMATOCRIT 35.5 % (39.0-53.0); HEMOGLOBIN 11.4 g/dL (13.0-17.5); LYMPH # 0.9 x10^3/uL (1.0-4.8); LYMPH % 13 % (24-48); MEAN CORPUSCULAR HEMOGLOBIN 32 pg (25-35); MEAN CORPUSCULAR HGB CONC 32 g/dL (31-37); MEAN CORPUSCULAR VOLUME 99 fL (79-100); MONO # 0.8 x10^3/uL (0.0-1.1); MONO % 13 % (0-9); NEUT # 4.7 x10^3/uL (1.8-7.7); NEUT % 73 % (31-73); PLATELET COUNT 207 x10^3/uL (140-400); RED BLOOD COUNT 3.59 x10^6/uL (4.30-5.70); RED CELL DISTRIBUTION WIDTH 15.9 % (11.5-14.5); WHITE BLOOD COUNT 6.5 x10^3/uL (4.0-11.0)
[2022-02-20] MEDS: IPRATRPIUM/ALBUTEROL 0.5/2.5MG 3 ML NEBU. NEB SCH ×4 (07:21→20:00)
[2022-02-20 07:42] LABS: ALBUMIN/GLOBULIN RATIO 0.5 (1.0-1.7); CALCIUM 8.2 mg/dL (8.5-10.1); CREATININE 2.2 mg/dL (0.7-1.3); GFR 31.1; POTASSIUM 4.3 mmol/L (3.5-5.1); TOTAL BILIRUBIN 0.9 mg/dL (0.2-1.0); TOTAL PROTEIN 5.8 g/dL (6.4-8.2)
[2022-02-20 07:47] LABS: BASE EXCESS ABG 3 mmol/L (-3-3); HCO3 ABG 31 mmol/L (21-28); PO2 ABG 89 mmHg (75-108); SAT O2 ABG 95 % (92-99)
[2022-02-20 07:50] LABS: FIO2 ABG 60; PCO2 ABG 64 mmHg (35-46)
--- NOTE | 2022-02-20 08:14 | RAD ---
US LEFT LOWER EXTREMITY ARTERIAL DUPLEX EVAL Indication: Reason: L 4th digit dry gangrene, arterial inflow status, pedal / Spl. Instructions: / H istory: . Pain Comparison: None. Procedure: Real-time grayscale, color flow Doppler, and Doppler spectral waveform analysis of the art erial system of the lower extremity is performed. Findings: Left lower extremity: Monophasic wave forms throughout the left lower extremity. No significant veloc ity elevation. Left lower extremity subcutaneous edema. Mild atheromatous plaque. IMPRESSION: 1. Monophasic waveforms throughout the left lower extremity, may relate to proximal stenosis. CT ang iogram can further assess. 2. Mild atheromatous plaque. Electronically signed by: Luis Antonio Jackson DO (02/20/2022 8:12 AM) [id number]
--- NOTE | 2022-02-20 08:53 | PDOC2 ---
CARDIAC CONSULT DATE OF CONSULT Date of Consult DATE: 02/20/22 TIME: 08:44 REASON FOR CONSULT Reason for Consult: CHF REFERRING PHYSICIAN Referring Physician: [facility] SOURCE Source: Chart review, Patient PAST MEDICAL HISTORY Past Medical History Cardiovascular: CHF, HTN, Hyperlipidemia, PAFIB, CAD Pulmonary: COPD, Pneumonia, Other (BALTA) GI: GERD Endocrine: Diabetes PAST SURGICAL HISTORY Past Surgical History Cholecystectomy, Other (vasectomy ) FAMILY HISTORY Family History: Diabetes, Hypertension SOCIAL HISTORY Smoke: Quit ALCOHOL: none Drugs: None CURRENT MEDICATIONS CURRENT MEDICATIONS Current Medications Medications (Trade) Dose Ordered Sig/Theresa Route PRN Reason Start Time Stop Time Status Last Admin Dose Admin Furosemide (Lasix) 60 mg ONCE ONCE IVP 02/19/22 11:45 02/19/22 11:46 DC 02/19/22 11:45 Albuterol Sulfate (Ventolin Neb Soln) 2.5 mg PRN Q4HRS PRN NEB SHORTNESS OF BREATH 02/19/22 14:45 02/20/22 00:18 Apixaban (Eliquis) 5 mg BID PO 02/19/22 21:00 02/19/22 20:42 Atorvastatin Calcium (Lipitor) 20 mg QHS PO 02/19/22 21:00 02/19/22 20:42 Simethicone (Gas-X) 40 mg Q6HRS PO 02/19/22 18:00 02/20/22 06:33 Albuterol/ Ipratropium (Duoneb) 3 ml RTQID NEB 02/19/22 16:00 02/20/22 07:21 Digoxin (Lanoxin) 500 mcg 1X ONCE IV 02/19/22 17:15 02/19/22 17:16 DC 02/19/22 18:09 Piperacillin Sod/ Tazobactam Sod 3.375 gm/Sodium Chloride 50 ml @ 100 mls/hr Q6HRS IV 02/19/22 18:00 02/20/22 06:33 ALLERGIES ALLERGIES: Coded Allergies: No Known Drug Allergies (Unverified , 02/19/22) VITALS/I&O VITALS/I&O: Vital Signs Date Time Temp Pulse Resp B/P (MAP) Pulse Ox O2 Delivery O2 Flow Rate FiO2 02/20/22 07:22 96 BiPAP/CPAP 02/20/22 07:00 97.2 107 30 99/60 (73) 97.2 I & O 02/19/22 02/19/22 02/20/22 15:00 23:00 07:00 Intake Total 350 ml 200 ml Output Total 1230 ml 650 ml Balance -880 ml -450 ml LABS Lab: Laboratory Tests Test 02/19/22 11:15 02/19/22 12:00 02/19/22 18:12 02/19/22 19:30 White Blood Count 8.2 x10^3/uL (4.0-11.0) Red Blood Count 4.21 x10^6/uL (4.30-5.70) L Hemoglobin 13.2 g/dL (13.0-17.5) Hematocrit 41.5 % (39.0-53.0) Mean Corpuscular Volume 99 fL (79-100) Mean Corpuscular Hemoglobin 31 pg (25-35) Mean Corpuscular Hemoglobin Concent 32 g/dL (31-37) Red Cell Distribution Width 15.6 % (11.5-14.5) H Platelet Count 261 x10^3/uL (140-400) Neutrophils (%) (Auto) 77 % (31-73) H Lymphocytes (%) (Auto) 14 % (24-48) L Monocytes (%) (Auto) 8 % (0-9) Eosinophils (%) (Auto) 1 % (0-3) Basophils (%) (Auto) 1 % (0-3) Neutrophils # (Auto) 6.3 x10^3/uL (1.8-7.7) Lymphocytes # (Auto) 1.1 x10^3/uL (1.0-4.8) Monocytes # (Auto) 0.7 x10^3/uL (0.0-1.1) Eosinophils # (Auto) 0.0 x10^3/uL (0.0-0.7) Basophils # (Auto) 0.0 x10^3/uL (0.0-0.2) Prothrombin Time 14.0 SEC (11.7-14.0) Prothrombin Time INR 1.1 (0.8-1.1) Activated Partial Thromboplast Time 29 SEC (24-38) Sodium Level 134 mmol/L (136-145) L Potassium Level 4.5 mmol/L (3.5-5.1) Chloride Level 95 mmol/L (98-107) L Carbon Dioxide Level 33 mmol/L (21-32) H Anion Gap 6 (6-14) Blood Urea Nitrogen 27 mg/dL (8-26) H Creatinine 2.2 mg/dL (0.7-1.3) H Estimated GFR (Cockcroft-Gault) 31.1 Glucose Level 136 mg/dL (70-99) H Lactic Acid Level 1.5 mmol/L (0.4-2.0) Calcium Level 8.3 mg/dL (8.5-10.1) L Total Bilirubin 0.7 mg/dL (0.2-1.0) Direct Bilirubin 0.2 mg/dL (0.0-0.2) Aspartate Amino Transferase (AST) 6 U/L (15-37) L Alanine Aminotransferase (ALT) 12 U/L (16-63) L Alkaline Phosphatase 84 U/L (46-116) Creatine Kinase 32 U/L (39-308) L Troponin I High Sensitivity 22 ng/L (4-75) QJ-Geh-T-Type Natriuretic Peptide 02826 pg/mL (0-124) H Total Protein 6.7 g/dL (6.4-8.2) Albumin 2.6 g/dL (3.4-5.0) L Influenza Type A Antigen Negative (NEGATIVE) Influenza Type B Antigen Negative (NEGATIVE) Glucose (Fingerstick) 108 mg/dL (70-99) H Urine Collection Type Unknown Urine Color (Auto) Light yellow Urine Turbidity Clear Urine pH (Auto) 5.5 (<5.0-8.0) Urine Specific [place] 1.011 (1.000-1.030) Urine Protein (Auto) 300 mg/dL (Negative) Urine Glucose (Auto)(UA) 100 mg/dL (Negative) Urine Ketones (Auto) Negative mg/dL (Negative) Urine Blood (Auto) Large (Negative) Urine Nitrite Negative (Negative) Urine Bilirubin (Auto) Negative (Negative) Urine Urobilinogen (Auto) Normal mg/dL (Normal) Urine Leukocyte Esterase (Auto) Negative (Negative) Urine RBC >40 /HPF (0-2) Urine WBC 1-4 /HPF (0-4) Urine Bacteria 0 /HPF (0-FEW) Urine Hyaline Casts Moderate /HPF Urine Granular Casts Few /HPF Test 02/20/22 06:45 02/20/22 07:25 02/20/22 07:57 White Blood Count 6.5 x10^3/uL (4.0-11.0) Red Blood Count 3.59 x10^6/uL (4.30-5.70) L Hemoglobin 11.4 g/dL (13.0-17.5) L Hematocrit 35.5 % (39.0-53.0) L Mean Corpuscular Volume 99 fL (79-100) Mean Corpuscular Hemoglobin 32 pg (25-35) Mean Corpuscular Hemoglobin Concent 32 g/dL (31-37) Red Cell Distribution Width 15.9 % (11.5-14.5) H Platelet Count 207 x10^3/uL (140-400) Neutrophils (%) (Auto) 73 % (31-73) Lymphocytes (%) (Auto) 13 % (24-48) L Monocytes (%) (Auto) 13 % (0-9) H Eosinophils (%) (Auto) 1 % (0-3) Basophils (%) (Auto) 1 % (0-3) Neutrophils # (Auto) 4.7 x10^3/uL (1.8-7.7) Lymphocytes # (Auto) 0.9 x10^3/uL (1.0-4.8) L Monocytes # (Auto) 0.8 x10^3/uL (0.0-1.1) Eosinophils # (Auto) 0.1 x10^3/uL (0.0-0.7) Basophils # (Auto) 0.0 x10^3/uL (0.0-0.2) Sodium Level 136 mmol/L (136-145) Potassium Level 4.3 mmol/L (3.5-5.1) Chloride Level 98 mmol/L (98-107) Carbon Dioxide Level 35 mmol/L (21-32) H Anion Gap 3 (6-14) L Blood Urea Nitrogen 28 mg/dL (8-26) H Creatinine 2.2 mg/dL (0.7-1.3) H Estimated GFR (Cockcroft-Gault) 31.1 BUN/Creatinine Ratio 13 (6-20) Glucose Level 111 mg/dL (70-99) H Calcium Level 8.2 mg/dL (8.5-10.1) L Total Bilirubin 0.9 mg/dL (0.2-1.0) Aspartate Amino Transferase (AST) 8 U/L (15-37) L Alanine Aminotransferase (ALT) 13 U/L (16-63) L Alkaline Phosphatase 61 U/L (46-116) Total Protein 5.8 g/dL (6.4-8.2) L Albumin 2.0 g/dL (3.4-5.0) L Albumin/Globulin Ratio 0.5 (1.0-1.7) L O2 Saturation 95 % (92-99) Arterial Blood pH 7.30 (7.35-7.45) L Arterial Blood pCO2 at Patient Temp 64 mmHg (35-46) *H Arterial Blood pO2 at Patient Temp 89 mmHg (75-108) Arterial Blood HCO3 31 mmol/L (21-28) H Arterial Blood Base Excess 3 mmol/L (-3-3) FiO2 60 Glucose (Fingerstick) 109 mg/dL (70-99) H Laboratory Tests 02/19/22 11:15 02/20/22 06:45 Laboratory Tests 02/19/22 11:15 02/20/22 06:45 ULISES HOUGH APRN Feb 20, 2022 08:53
[2022-02-20] MEDS ORDERED: FUROSEMIDE 40 MG TABLET. PO SCH (09:00)
--- NOTE | 2022-02-20 09:56 | CONS ---
DATE OF CONSULTATION: 02/20/2022 PULMONARY CONSULTATION ATTENDING PHYSICIAN: Dr. Barbara Nelson. REASON FOR CONSULTATION: Respiratory failure. HISTORY OF PRESENT ILLNESS: The patient is a 57-year-old male who is known to me. He has a history of severe oxygen dependent COPD. He is on 6 liters at home along with BiPAP at nighttime. He has a history of obstructive sleep apnea/obesity hypoventilation syndrome and cor pulmonale. He was brought into the hospital with complaint of increasing leg edema and also increased shortness of breath. He does not have a significant cough. No chest pain. No fever, no chills. No nausea, vomiting or diarrhea. The patient's chest x-ray was reviewed and it shows increasing bilateral interstitial infiltrates and pleural effusions consistent with congestive heart failure. The patient was kept on BiPAP overnight. This morning, arterial blood gases showed a pH of 7.30, pCO2 of 64 and a pO2 of 89 on 60% FiO2. The FiO2 has been reduced to 40%. I have also increased the IPAP to 18 and reduced the EPAP to 6. The patient is awake and following commands. I have been asked to see him for further evaluation. 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 His arterial Doppler showed questionable stenosis. PAST MEDICAL HISTORY: Significant for history of CHF, history of paroxysmal atrial fibrillation, history of COPD, severe. History of chronic hypoxic respiratory failure, history of obstructive sleep apnea/obesity, hypoventilation syndrome and cor pulmonale. History of pneumonia, CAD and paroxysmal atrial fibrillation, GERD and diabetes. PAST SURGICAL HISTORY: Vasectomy. FAMILY HISTORY: Hypertension and diabetes. SOCIAL HISTORY: Quit tobacco October of last year. Before that, he has a long history of tobaccoism at least 35 years. REVIEW OF SYSTEMS: Twelve-point review of system obtained. Pertinent positives discussed in my present illness, otherwise noncontributory. All systems that were negative were reviewed as well. MEDICATIONS: Reviewed as listed in the MRAD. He received 60 mg of IV Lasix. He is currently on Eliquis as well as Zosyn. Oral Lasix. PHYSICAL EXAMINATION: VITAL SIGNS: Reviewed. Afebrile, blood pressure 99/66. Pulse ox 99%. NECK: Supple. LUNGS: With diminished breath sounds bilaterally. No wheezing. CARDIOVASCULAR: With a regular rate. ABDOMEN: Soft, obese. EXTREMITIES: With significantly increased lower extremity pitting edema with venous stasis. He has gangrene of the left fifth toe. LABORATORY DATA: Reviewed. His influenza screen negative. ABGs discussed in my history of present illness. BUN 28 and a creatinine of 2.2. INR 1.1. White cell count 6.5. IMPRESSION: 1. Acute on chronic hypercapnic and hypoxic respiratory failure secondary to acute on chronic cor pulmonale, component of diastolic congestive heart failure and acute exacerbation of chronic obstructive pulmonary disease. 2. Abnormal chest x-ray revealed increasing bilateral interstitial infiltrates and pleural effusions consistent with heart failure. It is combination of diastolic congestive heart failure and acute on chronic right heart failure. 3. Underlying severe chronic obstructive pulmonary disease with chronic hypercapnia and chronic hypoxic respiratory failure. 4. Underlying obesity, hypoventilation syndrome and cor pulmonale. An obstructive sleep apnea. 5. Chronic kidney disease. 6. Paroxysmal atrial fibrillation. On chronic anticoagulation. 7. Severe protein-calorie malnutrition. RECOMMENDATIONS: 1. I have discussed with RN and RT. I have made adjustments on the BiPAP. IPAP has been increased and EPAP has been reduced and FiO2 has been reduced to 40%. 2. Follow ABGs and make necessary adjustment. 3. Continue diuresis while keeping a close eye on renal function. 4. Continue Eliquis. 5. Bronchodilators. 6. Clinically, I do not see a need for antibiotics. We will deescalate soon. 7. Follow vascular surgery recommendations regarding gangrene of the left fifth toe. 8. Discussed with RN. Chart reviewed. Imaging studies reviewed. Total critical care time [address]: Alfred TID: [id number]
[2022-02-20 11:00] VITALS: BP 95/64
[2022-02-20] MEDS ORDERED: DIGOXIN IV 500 MCG/2 ML AMPUL. IV ONE (11:30)
[2022-02-20] MEDS ORDERED: HEPARIN 25,000UTS/250ML PREMIX 250 ML IV PRN (11:30)
[2022-02-20] MEDS: DOCUSATE SODIUM 100 MG CAPSULE. PO SCH (12:50)
[2022-02-20] MEDS: PANTOPRAZOLE 40 MG TABLET.DR. PO SCH (12:50)
[2022-02-20] MEDS: MAGNESIUM OXIDE 400 MG TABLET PO SCH (12:52)
--- NOTE | 2022-02-20 12:57 | PDOC ---
[employer] PROGRESS NOTE Date of Service DOS: DATE: 02/20/22 TIME: 12:55 Chief Complaint Chief Complaint Acute hypoxic/hypercapnic respiratory failure requiring BiPAP support Abnormal CXR - possible gram-negative organisms possible aspiration Left 2nd toe ulcer H/o A. Acute electrolyte derangementhyponatremia, likely hypervolemic Acute on chronic respiratory acidosis Lactic acidemia Elevated BNP suggestive of volume overload History of COPD History of diabetes mellitus type 2 History of tobacco misuse History of Present Illness History of Present Illness Mr Pelayo is a 57-year-old male with past medical history of CHF, COPD on 6 L home O2, diabetes mellitus 2 who comes in with shortness of breath for the past several weeks. The past few days has worsened to the point where he needed to come to the ED for further evaluation. Patient is on torsemide at home for his CHF. He is little confused and so dyspneic with NT proBNP greater than 13,000 dyspnea did improve with initial diuresis and increasing supplemental O2 and was placed on BiPAP with improvement and admitted for further care. 02/20: Overnight continued on BiPAP / with a 16rr, 60% FiO2 with ABG 7.2 96/64/88. Seen by podiatry for consideration of left second toe amputation and cardiology for consideration for aortogram with runoff given monophasic findings on left lower extremity arterial Doppler with no clear occlusive disease in the lower extremity. Shortness of breath and cough conversational dyspnea. Is able to talk through his BiPAP. No significant chest discomfort currently. Consults: Cardiology, pulmonology, podiatry, vascular surgery Vitals/I&O Vitals/I&O: Vital Signs Date Time Temp Pulse Resp B/P (MAP) Pulse Ox O2 Delivery O2 Flow Rate FiO2 02/20/22 11:00 96.2 100 24 95/64 (74) 91 BiPAP/CPAP 96.2 I & O 02/19/22 02/19/22 02/20/22 15:00 23:00 07:00 Intake Total 350 ml 200 ml Output Total 1230 ml 650 ml Balance -880 ml -450 ml Physical Exam General: Alert, Oriented X3, Cooperative, moderate distress Lungs: Clear, Other Abdomen: Normal bowel sounds Extremities: No edema Skin: No significant lesion Labs Labs: Laboratory Tests Test 02/19/22 18:12 02/19/22 19:30 02/20/22 06:45 02/20/22 07:25 Glucose (Fingerstick) 108 mg/dL (70-99) Urine Collection Type Unknown Urine Color (Auto) Light yellow Urine Turbidity Clear Urine pH (Auto) 5.5 (<5.0-8.0) Urine Specific [place] 1.011 (1.000-1.030) Urine Protein (Auto) 300 mg/dL (Negative) Urine Glucose (Auto)(UA) 100 mg/dL (Negative) Urine Ketones (Auto) Negative mg/dL (Negative) Urine Blood (Auto) Large (Negative) Urine Nitrite Negative (Negative) Urine Bilirubin (Auto) Negative (Negative) Urine Urobilinogen (Auto) Normal mg/dL (Normal) Urine Leukocyte Esterase (Auto) Negative (Negative) Urine RBC >40 /HPF (0-2) Urine WBC 1-4 /HPF (0-4) Urine Bacteria 0 /HPF (0-FEW) Urine Hyaline Casts Moderate /HPF Urine Granular Casts Few /HPF White Blood Count 6.5 x10^3/uL (4.0-11.0) Red Blood Count 3.59 x10^6/uL (4.30-5.70) Hemoglobin 11.4 g/dL (13.0-17.5) Hematocrit 35.5 % (39.0-53.0) Mean Corpuscular Volume 99 fL (79-100) Mean Corpuscular Hemoglobin 32 pg (25-35) Mean Corpuscular Hemoglobin Concent 32 g/dL (31-37) Red Cell Distribution Width 15.9 % (11.5-14.5) Platelet Count 207 x10^3/uL (140-400) Neutrophils (%) (Auto) 73 % (31-73) Lymphocytes (%) (Auto) 13 % (24-48) Monocytes (%) (Auto) 13 % (0-9) Eosinophils (%) (Auto) 1 % (0-3) Basophils (%) (Auto) 1 % (0-3) Neutrophils # (Auto) 4.7 x10^3/uL (1.8-7.7) Lymphocytes # (Auto) 0.9 x10^3/uL (1.0-4.8) Monocytes # (Auto) 0.8 x10^3/uL (0.0-1.1) Eosinophils # (Auto) 0.1 x10^3/uL (0.0-0.7) Basophils # (Auto) 0.0 x10^3/uL (0.0-0.2) Sodium Level 136 mmol/L (136-145) Potassium Level 4.3 mmol/L (3.5-5.1) Chloride Level 98 mmol/L (98-107) Carbon Dioxide Level 35 mmol/L (21-32) Anion Gap 3 (6-14) Blood Urea Nitrogen 28 mg/dL (8-26) Creatinine 2.2 mg/dL (0.7-1.3) Estimated GFR (Cockcroft-Gault) 31.1 BUN/Creatinine Ratio 13 (6-20) Glucose Level 111 mg/dL (70-99) Calcium Level 8.2 mg/dL (8.5-10.1) Total Bilirubin 0.9 mg/dL (0.2-1.0) Aspartate Amino Transf (AST/SGOT) 8 U/L (15-37) Alanine Aminotransferase (ALT/SGPT) 13 U/L (16-63) Alkaline Phosphatase 61 U/L (46-116) Total Protein 5.8 g/dL (6.4-8.2) Albumin 2.0 g/dL (3.4-5.0) Albumin/Globulin Ratio 0.5 (1.0-1.7) O2 Saturation 95 % (92-99) Arterial Blood pH 7.30 (7.35-7.45) Arterial Blood pCO2 at Patient Temp 64 mmHg (35-46) Arterial Blood pO2 at Patient Temp 89 mmHg (75-108) Arterial Blood HCO3 31 mmol/L (21-28) Arterial Blood Base Excess 3 mmol/L (-3-3) FiO2 60 Test 02/20/22 07:57 02/20/22 11:23 Glucose (Fingerstick) 109 mg/dL (70-99) 114 mg/dL (70-99) Assessment and Plan Assessmemt and Plan Problems Medical Problems: (1) Acute exacerbation of CHF (congestive heart failure) Status: Acute (2) Acute kidney injury Status: Acute (3) Hypoxia Status: Acute Comment Review of Relevant I have reviewed the following items wade (where applicable) has been applied. Medications: Current Medications Medications (Trade) Dose Ordered Sig/Theresa Route PRN Reason Start Time Stop Time Status Last Admin Dose Admin Albuterol Sulfate (Ventolin Neb Soln) 2.5 mg PRN Q4HRS PRN NEB SHORTNESS OF BREATH 02/19/22 14:45 02/20/22 00:18 Apixaban (Eliquis) 5 mg BID PO 02/19/22 21:00 02/20/22 11:14 DC 02/19/22 20:42 Atorvastatin Calcium (Lipitor) 20 mg QHS PO 02/19/22 21:00 02/19/22 20:42 Docusate Sodium (Colace) 100 mg DAILY PO 02/20/22 09:00 02/20/22 12:50 Magnesium Oxide (Magnesium Oxide) 400 mg DAILY PO 02/20/22 09:00 02/20/22 12:52 Pantoprazole Sodium (Protonix) 40 mg DAILYAC PO 02/20/22 07:30 02/20/22 12:50 Simethicone (Gas-X) 40 mg Q6HRS PO 02/19/22 18:00 02/20/22 12:50 Albuterol/ Ipratropium (Duoneb) 3 ml RTQID NEB 02/19/22 16:00 02/20/22 07:21 Digoxin (Lanoxin) 500 mcg 1X ONCE IV 02/19/22 17:15 02/19/22 17:16 DC 02/19/22 18:09 Piperacillin Sod/ Tazobactam Sod 3.375 gm/Sodium Chloride 50 ml @ 100 mls/hr Q6HRS IV 02/19/22 18:00 02/20/22 12:50 Justifications for Admission Other Justification Acute hypoxemic respiratory failure ABY GUERIN MD Feb 20, 2022 12:57
[2022-02-20] MEDS: LACTOBACILLUS RHAMNOSUS GG 1 CAPSULE. PO SCH ×2 (13:10→20:47)
--- NOTE | 2022-02-20 13:42 | PDOC2 ---
CONSULT Date of Consult Date of Consult DATE: 02/20/22 TIME: 13:34 Reason for Consult Reason for Consult: Gangrene of the left fourth toe and peripheral arterial disease Identification/Chief Complaint Chief Complaint Gangrene of the left fourth toe and peripheral arterial disease History of Present Illness Reason for Visit: The patient is a 57-year-old male with a history of diabetes mellitus and peripheral arterial disease who has developed dry gangrene of the left fourth toe. He has a history of peripheral arterial disease in his bilateral lower extremities per chart review. He states that the toe has been black for several weeks. He has no significant pain in his legs. He does have significant COPD and is on home oxygen, he is also admitted for exacerbation. He reports no arterial intervention in his legs in the past. He is currently on antibiotics. He takes full anticoagulation at home which has been held. He has chronic renal insufficiency and his creatinine is 2.2. Past Medical History Cardiovascular: CHF, HTN, Hyperlipidemia Pulmonary: COPD, Pneumonia, Other CENTRAL NERVOUS SYSTEM: Periperal neuropathy GI: GERD Heme/Onc: No pertinent hx Hepatobiliary: No pertinent hx Psych: No pertinent hx Rheumatologic: No pertinent hx Infectious disease: No pertinent hx Renal/: No pertinent hx Endocrine: Diabetes Past Surgical History Past Surgical History: Cholecystectomy, Other Family History Family History: Diabetes, Hypertension Social History Quit ALCOHOL: none Drugs: None Lives: with Family Current Problem List Problem List Problems Medical Problems: (1) Acute exacerbation of CHF (congestive heart failure) Status: Acute (2) Acute kidney injury Status: Acute (3) Hypoxia Status: Acute Current Medications Current Medications Current Medications Albuterol/ Ipratropium (Duoneb) 9 ml 1X ONCE NEB ; Start 02/19/22 at 11:30; Stop 02/19/22 at 11:31; Status DC Furosemide (Lasix) 60 mg ONCE ONCE IVP Last administered on 02/19/22at 11:45; Start 02/19/22 at 11:45; Stop 02/19/22 at 11:46; Status DC Acetaminophen (Tylenol) 650 mg PRN Q4HRS PRN PO TEMP OVER 100.4F OR MILD PAIN; Start 02/19/22 at 14:45 Albuterol Sulfate (Ventolin Neb Soln) 2.5 mg PRN Q4HRS PRN NEB SHORTNESS OF BREATH Last administered on 02/20/22at 00:18; Start 02/19/22 at 14:45 Apixaban (Eliquis) 5 mg BID PO Last administered on 02/19/22at 20:42; Start 02/19/22 at 21:00; Stop 02/20/22 at 11:14; Status DC Atorvastatin Calcium (Lipitor) 20 mg QHS PO Last administered on 02/19/22at 20:42; Start 02/19/22 at 21:00 Diltiazem HCl (Cardizem 24hr Cd) 240 mg DAILY PO ; Start 02/20/22 at 09:00 Docusate Sodium (Colace) 100 mg DAILY PO Last administered on 02/20/22 12:50; Start 02/20/22 at 09:00 Furosemide (Lasix) 120 mg DAILY PO Last administered on 02/20/22 13:10; Start 02/20/22 at 09:00 Magnesium Oxide (Magnesium Oxide) 400 mg DAILY PO Last administered on 02/20/22 12:52; Start 02/20/22 at 09:00 Pantoprazole Sodium (Protonix) 40 mg DAILYAC PO Last administered on 02/20/22 12:50; Start 02/20/22 at 07:30 Simethicone (Gas-X) 40 mg Q6HRS PO Last administered on 02/20/22 12:50; Start 02/19/22 at 18:00 Albuterol/ Ipratropium (Duoneb) 3 ml RTQID NEB Last administered on 02/20/22at 07:21; Start 02/19/22 at 16:00 Info (Anti-Coagulation Monitoring By Pharmacy) 1 each PRN DAILY PRN MC PER PROTOCOL; Start 02/19/22 at 15:15 Digoxin (Lanoxin) 500 mcg 1X ONCE IV Last administered on 02/19/22at 18:09; Start 02/19/22 at 17:15; Stop 02/19/22 at 17:16; Status DC Piperacillin Sod/ Tazobactam Sod (Zosyn Per Pharmacy) 1 each PRN DAILY PRN MC SEE COMMENTS; Start 02/19/22 at 17:15 Piperacillin Sod/ Tazobactam Sod 3.375 gm/Sodium Chloride 50 ml @ 100 mls/hr Q6HRS IV Last administered on 02/20/22at 12:50; Start 02/19/22 at 18:00 Lactobacillus Rhamnosus (Culturelle) 1 cap BID PO Last administered on 02/20/22at 13:10; Start 02/20/22 at 09:00 Heparin Sodium/ Dextrose 250 ml @ 10 mls/hr CONT PRN PRN IV PER PROTOCOL; Sta rt 02/20/22 at 11:30 Digoxin (Lanoxin) 500 mcg 1X ONCE IV ; Start 02/20/22 at 11:30; Stop 02/20/22 at 11:31; Status DC Active Scripts Active Simethicone 80 Mg Tab.chew 0.5 Tab PO Q6HRS 10 Days Insulin Lispro Kwikpen U-100 (Insulin Lispro) 100 Unit/1 Ml Insuln.pen 0-9 Unit SQ TIDACHC 30 Days Potassium Chloride (Potassium Chloride) 20 Meq Tablet.er 20 Meq PO DAILYWBKFT 30 Days Pantoprazole Sodium (Pantoprazole Sodium) 40 Mg Tablet.dr 40 Mg PO DAILYAC 30 Days Colace (Docusate Sodium) 100 Mg Capsule 100 Mg PO DAILY 30 Days Magnesium Oxide 400 Mg Tablet 400 Mg PO DAILY 30 Days Acetaminophen 325 Mg Tablet 650 Mg PO PRN Q4HRS PRN 30 Days Atorvastatin Calcium 20 Mg Tablet 20 Mg PO QHS 30 Days Eliquis (Apixaban) 5 Mg Tablet 5 Mg PO BID 30 Days Diltiazem 24Hr Cd (Diltiazem HCl) 240 Mg Cap.er.24h 240 Mg PO DAILY 30 Days [Albuterol Sulfate] 2.5 MG/3 ML Nebu 2.5 Mg NEB PRN Q2HR PRN Reported Furosemide 40 Mg Tablet 3 Tab PO DAILY Advair 500-50 Diskus (Fluticasone/Salmeterol) 1 Each Disk.w.dev 1 Puff INH BID Albuterol Sulfate Neb Soln (Albuterol Sulfate) 2.5 Mg/3 Ml Vial.neb 2.5 Mg NEB PRN Q4-6HRS PRN Glyxambi 25 mg-5 mg Tablet (Empagliflozin/Linagliptin) 1 Each Tablet 1 Each PO DAILY Metformin Hcl Er (Metformin Hcl) 500 Mg Tab.er.24 500 Mg PO BID Lisinopril 5 Mg Tablet 10 Mg PO DAILY Spiriva (Tiotropium [place]) 18 Mcg Cap.w.dev 18 Mcg IH DAILY Allergies Allergies: Coded Allergies: No Known Drug Allergies (Unverified , 02/19/22) Physical Exam Physical Exam The patient is awake and alert Abdomen is soft, nondistended and nontender he does have an obese abdomen Bilateral lower extremities are warm, mild swelling of the lower legs and feet. In the left foot there is black dry gangrene of the fourth toe, no surrounding erythema or drainage, the gangrene extends down to the base of the toe. No other areas of tissue breakdown in the left foot. The right foot has no areas of tissue breakdown or gangrene. I am unable to palpate pulses in his feet however they are warm, good capillary refill, intact motor and sensory function and no signs of acute ischemia. Neurologic exam he is awake and alert, normal speech, no gross neurologic deficit General: Alert, No acute distress Abdomen: Soft, No tenderness Vitals VITALS Vital Signs Date Time Temp Pulse Resp B/P (MAP) Pulse Ox O2 Delivery O2 Flow Rate FiO2 02/20/22 11:00 96.2 100 24 95/64 (74) 91 BiPAP/CPAP 96.2 Labs Labs Laboratory Tests Test 02/19/22 11:15 02/19/22 12:00 02/19/22 18:12 02/19/22 19:30 White Blood Count 8.2 x10^3/uL (4.0-11.0) Red Blood Count 4.21 x10^6/uL (4.30-5.70) Hemoglobin 13.2 g/dL (13.0-17.5) Hematocrit 41.5 % (39.0-53.0) Mean Corpuscular Volume 99 fL (79-100) Mean Corpuscular Hemoglobin 31 pg (25-35) Mean Corpuscular Hemoglobin Concent 32 g/dL (31-37) Red Cell Distribution Width 15.6 % (11.5-14.5) Platelet Count 261 x10^3/uL (140-400) Neutrophils (%) (Auto) 77 % (31-73) Lymphocytes (%) (Auto) 14 % (24-48) Monocytes (%) (Auto) 8 % (0-9) Eosinophils (%) (Auto) 1 % (0-3) Basophils (%) (Auto) 1 % (0-3) Neutrophils # (Auto) 6.3 x10^3/uL (1.8-7.7) Lymphocytes # (Auto) 1.1 x10^3/uL (1.0-4.8) Monocytes # (Auto) 0.7 x10^3/uL (0.0-1.1) Eosinophils # (Auto) 0.0 x10^3/uL (0.0-0.7) Basophils # (Auto) 0.0 x10^3/uL (0.0-0.2) Prothrombin Time 14.0 SEC (11.7-14.0) Prothromb Time International Ratio 1.1 (0.8-1.1) Activated Partial Thromboplast Time 29 SEC (24-38) Sodium Level 134 mmol/L (136-145) Potassium Level 4.5 mmol/L (3.5-5.1) Chloride Level 95 mmol/L (98-107) Carbon Dioxide Level 33 mmol/L (21-32) Anion Gap 6 (6-14) Blood Urea Nitrogen 27 mg/dL (8-26) Creatinine 2.2 mg/dL (0.7-1.3) Estimated GFR (Cockcroft-Gault) 31.1 Glucose Level 136 mg/dL (70-99) Lactic Acid Level 1.5 mmol/L (0.4-2.0) Calcium Level 8.3 mg/dL (8.5-10.1) Total Bilirubin 0.7 mg/dL (0.2-1.0) Direct Bilirubin 0.2 mg/dL (0.0-0.2) Aspartate Amino Transf (AST/SGOT) 6 U/L (15-37) Alanine Aminotransferase (ALT/SGPT) 12 U/L (16-63) Alkaline Phosphatase 84 U/L (46-116) Creatine Kinase 32 U/L (39-308) Troponin I High Sensitivity 22 ng/L (4-75) XU-Lam-F-Type Natriuretic Peptide 49735 pg/mL (0-124) Total Protein 6.7 g/dL (6.4-8.2) Albumin 2.6 g/dL (3.4-5.0) Influenza Type A Antigen Negative (NEGATIVE) Influenza Type B Antigen Negative (NEGATIVE) Glucose (Fingerstick) 108 mg/dL (70-99) Urine Collection Type Unknown Urine Color (Auto) Light yellow Urine Turbidity Clear Urine pH (Auto) 5.5 (<5.0-8.0) Urine Specific [place] 1.011 (1.000-1.030) Urine Protein (Auto) 300 mg/dL (Negative) Urine Glucose (Auto)(UA) 100 mg/dL (Negative) Urine Ketones (Auto) Negative mg/dL (Negative) Urine Blood (Auto) Large (Negative) Urine Nitrite Negative (Negative) Urine Bilirubin (Auto) Negative (Negative) Urine Urobilinogen (Auto) Normal mg/dL (Normal) Urine Leukocyte Esterase (Auto) Negative (Negative) Urine RBC >40 /HPF (0-2) Urine WBC 1-4 /HPF (0-4) Urine Bacteria 0 /HPF (0-FEW) Urine Hyaline Casts Moderate /HPF Urine Granular Casts Few /HPF Test 02/20/22 06:45 02/20/22 07:25 02/20/22 07:57 02/20/22 11:23 White Blood Count 6.5 x10^3/uL (4.0-11.0) Red Blood Count 3.59 x10^6/uL (4.30-5.70) Hemoglobin 11.4 g/dL (13.0-17.5) Hematocrit 35.5 % (39.0-53.0) Mean Corpuscular Volume 99 fL (79-100) Mean Corpuscular Hemoglobin 32 pg (25-35) Mean Corpuscular Hemoglobin Concent 32 g/dL (31-37) Red Cell Distribution Width 15.9 % (11.5-14.5) Platelet Count 207 x10^3/uL (140-400) Neutrophils (%) (Auto) 73 % (31-73) Lymphocytes (%) (Auto) 13 % (24-48) Monocytes (%) (Auto) 13 % (0-9) Eosinophils (%) (Auto) 1 % (0-3) Basophils (%) (Auto) 1 % (0-3) Neutrophils # (Auto) 4.7 x10^3/uL (1.8-7.7) Lymphocytes # (Auto) 0.9 x10^3/uL (1.0-4.8) Monocytes # (Auto) 0.8 x10^3/uL (0.0-1.1) Eosinophils # (Auto) 0.1 x10^3/uL (0.0-0.7) Basophils # (Auto) 0.0 x10^3/uL (0.0-0.2) Sodium Level 136 mmol/L (136-145) Potassium Level 4.3 mmol/L (3.5-5.1) Chloride Level 98 mmol/L (98-107) Carbon Dioxide Level 35 mmol/L (21-32) Anion Gap 3 (6-14) Blood Urea Nitrogen 28 mg/dL (8-26) Creatinine 2.2 mg/dL (0.7-1.3) Estimated GFR (Cockcroft-Gault) 31.1 BUN/Creatinine Ratio 13 (6-20) Glucose Level 111 mg/dL (70-99) Calcium Level 8.2 mg/dL (8.5-10.1) Total Bilirubin 0.9 mg/dL (0.2-1.0) Aspartate Amino Transf (AST/SGOT) 8 U/L (15-37) Alanine Aminotransferase (ALT/SGPT) 13 U/L (16-63) Alkaline Phosphatase 61 U/L (46-116) Total Protein 5.8 g/dL (6.4-8.2) Albumin 2.0 g/dL (3.4-5.0) Albumin/Globulin Ratio 0.5 (1.0-1.7) O2 Saturation 95 % (92-99) Arterial Blood pH 7.30 (7.35-7.45) Arterial Blood pCO2 at Patient Temp 64 mmHg (35-46) Arterial Blood pO2 at Patient Temp 89 mmHg (75-108) Arterial Blood HCO3 31 mmol/L (21-28) Arterial Blood Base Excess 3 mmol/L (-3-3) FiO2 60 Glucose (Fingerstick) 109 mg/dL (70-99) 114 mg/dL (70-99) Laboratory Tests Test 02/19/22 18:12 02/19/22 19:30 02/20/22 06:45 02/20/22 07:25 Glucose (Fingerstick) 108 mg/dL (70-99) Urine Collection Type Unknown Urine Color (Auto) Light yellow Urine Turbidity Clear Urine pH (Auto) 5.5 (<5.0-8.0) Urine Specific [place] 1.011 (1.000-1.030) Urine Protein (Auto) 300 mg/dL (Negative) Urine Glucose (Auto)(UA) 100 mg/dL (Negative) Urine Ketones (Auto) Negative mg/dL (Negative) Urine Blood (Auto) Large (Negative) Urine Nitrite Negative (Negative) Urine Bilirubin (Auto) Negative (Negative) Urine Urobilinogen (Auto) Normal mg/dL (Normal) Urine Leukocyte Esterase (Auto) Negative (Negative) Urine RBC >40 /HPF (0-2) Urine WBC 1-4 /HPF (0-4) Urine Bacteria 0 /HPF (0-FEW) Urine Hyaline Casts Moderate /HPF Urine Granular Casts Few /HPF White Blood Count 6.5 x10^3/uL (4.0-11.0) Red Blood Count 3.59 x10^6/uL (4.30-5.70) Hemoglobin 11.4 g/dL (13.0-17.5) Hematocrit 35.5 % (39.0-53.0) Mean Corpuscular Volume 99 fL (79-100) Mean Corpuscular Hemoglobin 32 pg (25-35) Mean Corpuscular Hemoglobin Concent 32 g/dL (31-37) Red Cell Distribution Width 15.9 % (11.5-14.5) Platelet Count 207 x10^3/uL (140-400) Neutrophils (%) (Auto) 73 % (31-73) Lymphocytes (%) (Auto) 13 % (24-48) Monocytes (%) (Auto) 13 % (0-9) Eosinophils (%) (Auto) 1 % (0-3) Basophils (%) (Auto) 1 % (0-3) Neutrophils # (Auto) 4.7 x10^3/uL (1.8-7.7) Lymphocytes # (Auto) 0.9 x10^3/uL (1.0-4.8) Monocytes # (Auto) 0.8 x10^3/uL (0.0-1.1) Eosinophils # (Auto) 0.1 x10^3/uL (0.0-0.7) Basophils # (Auto) 0.0 x10^3/uL (0.0-0.2) Sodium Level 136 mmol/L (136-145) Potassium Level 4.3 mmol/L (3.5-5.1) Chloride Level 98 mmol/L (98-107) Carbon Dioxide Level 35 mmol/L (21-32) Anion Gap 3 (6-14) Blood Urea Nitrogen 28 mg/dL (8-26) Creatinine 2.2 mg/dL (0.7-1.3) Estimated GFR (Cockcroft-Gault) 31.1 BUN/Creatinine Ratio 13 (6-20) Glucose Level 111 mg/dL (70-99) Calcium Level 8.2 mg/dL (8.5-10.1) Total Bilirubin 0.9 mg/dL (0.2-1.0) Aspartate Amino Transf (AST/SGOT) 8 U/L (15-37) Alanine Aminotransferase (ALT/SGPT) 13 U/L (16-63) Alkaline Phosphatase 61 U/L (46-116) Total Protein 5.8 g/dL (6.4-8.2) Albumin 2.0 g/dL (3.4-5.0) Albumin/Globulin Ratio 0.5 (1.0-1.7) O2 Saturation 95 % (92-99) Arterial Blood pH 7.30 (7.35-7.45) Arterial Blood pCO2 at Patient Temp 64 mmHg (35-46) Arterial Blood pO2 at Patient Temp 89 mmHg (75-108) Arterial Blood HCO3 31 mmol/L (21-28) Arterial Blood Base Excess 3 mmol/L (-3-3) FiO2 60 Test 02/20/22 07:57 02/20/22 11:23 Glucose (Fingerstick) 109 mg/dL (70-99) 114 mg/dL (70-99) Assessment/Plan Assessment/Plan 57-year-old male with peripheral arterial disease and dry gangrene of the left fourth toe. Arterial duplex scan shows monophasic flow throughout the left leg. He will need further evaluation of his circulation with an angiogram. His creatinine is elevated at 2.2. We will consult nephrology to optimize him prior to the angiogram. We will schedule him for an angiogram of the left lower extremity early next week, we will need the assistance of anesthesia with his severe pulmonary disease. He will need amputation of the left fourth toe after circulation is optimized. His Xarelto has been held in preparation for the angiogram. NAYELI WADE MD Feb 20, 2022 13:42
--- NOTE | 2022-02-20 14:20 | PDOC2 ---
ULISES HOUGH CORPORATE COUNSELOR 02/20/22 1420: CARDIAC CONSULT DATE OF CONSULT Date of Consult DATE: 02/20/22 TIME: 14:02 REASON FOR CONSULT Reason for Consult: CHF REFERRING PHYSICIAN Referring Physician: [facility] SOURCE Source: Chart review, Patient HISTORY OF PRESENT ILLNESS HISTORY OF PRESENT ILLNESS This is a 57 yo male admitted for complains of shortness of breath. Reports of PND and orthopnea and has been getting more SOA lately. No chest pain but has had sensation of palpitations. No falls or passing out. He did stubbed his left 4th toe 3 weeks ago. He has been compliant with his medications but has stopped using his BiPap 3 weeks due to "inconvenience", He was suppose to be set up for outpt CVN but has failed to follow up in our office x2. Presently bipap is in place and he is on AFIB RVR. PAST MEDICAL HISTORY Past Medical History Cardiovascular: CHF, HTN, Hyperlipidemia, PAFIB, CAD Pulmonary: COPD, Pneumonia, Other (BALTA) GI: GERD Endocrine: Diabetes PAST SURGICAL HISTORY Past Surgical History Cholecystectomy, Other (vasectomy ), [facility] FAMILY HISTORY Family History: Diabetes, Hypertension SOCIAL HISTORY Smoke: Quit ALCOHOL: none Drugs: None Lives: with Family CURRENT MEDICATIONS CURRENT MEDICATIONS Current Medications Medications (Trade) Dose Ordered Sig/Theresa Route PRN Reason Start Time Stop Time Status Last Admin Dose Admin Albuterol Sulfate (Ventolin Neb Soln) 2.5 mg PRN Q4HRS PRN NEB SHORTNESS OF BREATH 02/19/22 14:45 02/20/22 00:18 Apixaban (Eliquis) 5 mg BID PO 02/19/22 21:00 02/20/22 11:14 DC 02/19/22 20:42 Atorvastatin Calcium (Lipitor) 20 mg QHS PO 02/19/22 21:00 02/19/22 20:42 Docusate Sodium (Colace) 100 mg DAILY PO 02/20/22 09:00 02/20/22 12:50 Furosemide (Lasix) 120 mg DAILY PO 02/20/22 09:00 02/20/22 13:10 Magnesium Oxide (Magnesium Oxide) 400 mg DAILY PO 02/20/22 09:00 02/20/22 12:52 Pantoprazole Sodium (Protonix) 40 mg DAILYAC PO 02/20/22 07:30 02/20/22 12:50 Simethicone (Gas-X) 40 mg Q6HRS PO 02/19/22 18:00 02/20/22 12:50 Albuterol/ Ipratropium (Duoneb) 3 ml RTQID NEB 02/19/22 16:00 02/20/22 07:21 Digoxin (Lanoxin) 500 mcg 1X ONCE IV 02/19/22 17:15 02/19/22 17:16 DC 02/19/22 18:09 Piperacillin Sod/ Tazobactam Sod 3.375 gm/Sodium Chloride 50 ml @ 100 mls/hr Q6HRS IV 02/19/22 18:00 02/20/22 12:50 Lactobacillus Rhamnosus (Culturelle) 1 cap BID PO 02/20/22 09:00 02/20/22 13:10 Heparin Sodium/ Dextrose 250 ml @ 10 mls/hr CONT PRN PRN IV PER PROTOCOL 02/20/22 11:30 02/20/22 11:45 Digoxin (Lanoxin) 500 mcg 1X ONCE IV 02/20/22 11:30 02/20/22 11:31 DC 02/20/22 11:30 ALLERGIES ALLERGIES: Coded Allergies: No Known Drug Allergies (Unverified , 02/19/22) ROS Review of System Limited, pt on bipap PHYSICAL EXAM General: Alert, Oriented X3, Cooperative, mild distress HEENT: Atraumatic, Mucous membr. moist/pink Lungs: Other (diminished) Heart: Other (AFIB RVR) Abdomen: Soft, No tenderness Extremities: No cyanosis, Other (2-3+ bilateral LE pitting edema) Skin: Other (scaly BLE skin with skin sloughing. left 4th toe with dry gangrene) Neuro: Normal speech, Sensation intact Psych/Mental Status: Mental status NL, Mood NL MUSCULOSKELETAL: Osteoarthritic changes both hands VITALS/I&O VITALS/I&O: Vital Signs Date Time Temp Pulse Resp B/P (MAP) Pulse Ox O2 Delivery O2 Flow Rate FiO2 02/20/22 13:10 93 BiPAP/CPAP 02/20/22 11:30 130 95/64 02/20/22 11:00 96.2 24 96.2 I & O 02/19/22 02/19/22 02/20/22 15:00 23:00 07:00 Intake Total 350 ml 200 ml Output Total 1230 ml 650 ml Balance -880 ml -450 ml LABS Lab: Laboratory Tests Test 02/19/22 18:12 02/19/22 19:30 02/20/22 06:45 02/20/22 07:25 Glucose (Fingerstick) 108 mg/dL (70-99) H Urine Collection Type Unknown Urine Color (Auto) Light yellow Urine Turbidity Clear Urine pH (Auto) 5.5 (<5.0-8.0) Urine Specific [place] 1.011 (1.000-1.030) Urine Protein (Auto) 300 mg/dL (Negative) Urine Glucose (Auto)(UA) 100 mg/dL (Negative) Urine Ketones (Auto) Negative mg/dL (Negative) Urine Blood (Auto) Large (Negative) Urine Nitrite Negative (Negative) Urine Bilirubin (Auto) Negative (Negative) Urine Urobilinogen (Auto) Normal mg/dL (Normal) Urine Leukocyte Esterase (Auto) Negative (Negative) Urine RBC >40 /HPF (0-2) Urine WBC 1-4 /HPF (0-4) Urine Bacteria 0 /HPF (0-FEW) Urine Hyaline Casts Moderate /HPF Urine Granular Casts Few /HPF White Blood Count 6.5 x10^3/uL (4.0-11.0) Red Blood Count 3.59 x10^6/uL (4.30-5.70) L Hemoglobin 11.4 g/dL (13.0-17.5) L Hematocrit 35.5 % (39.0-53.0) L Mean Corpuscular Volume 99 fL (79-100) Mean Corpuscular Hemoglobin 32 pg (25-35) Mean Corpuscular Hemoglobin Concent 32 g/dL (31-37) Red Cell Distribution Width 15.9 % (11.5-14.5) H Platelet Count 207 x10^3/uL (140-400) Neutrophils (%) (Auto) 73 % (31-73) Lymphocytes (%) (Auto) 13 % (24-48) L Monocytes (%) (Auto) 13 % (0-9) H Eosinophils (%) (Auto) 1 % (0-3) Basophils (%) (Auto) 1 % (0-3) Neutrophils # (Auto) 4.7 x10^3/uL (1.8-7.7) Lymphocytes # (Auto) 0.9 x10^3/uL (1.0-4.8) L Monocytes # (Auto) 0.8 x10^3/uL (0.0-1.1) Eosinophils # (Auto) 0.1 x10^3/uL (0.0-0.7) Basophils # (Auto) 0.0 x10^3/uL (0.0-0.2) Sodium Level 136 mmol/L (136-145) Potassium Level 4.3 mmol/L (3.5-5.1) Chloride Level 98 mmol/L (98-107) Carbon Dioxide Level 35 mmol/L (21-32) H Anion Gap 3 (6-14) L Blood Urea Nitrogen 28 mg/dL (8-26) H Creatinine 2.2 mg/dL (0.7-1.3) H Estimated GFR (Cockcroft-Gault) 31.1 BUN/Creatinine Ratio 13 (6-20) Glucose Level 111 mg/dL (70-99) H Calcium Level 8.2 mg/dL (8.5-10.1) L Total Bilirubin 0.9 mg/dL (0.2-1.0) Aspartate Amino Transferase (AST) 8 U/L (15-37) L Alanine Aminotransferase (ALT) 13 U/L (16-63) L Alkaline Phosphatase 61 U/L (46-116) Total Protein 5.8 g/dL (6.4-8.2) L Albumin 2.0 g/dL (3.4-5.0) L Albumin/Globulin Ratio 0.5 (1.0-1.7) L O2 Saturation 95 % (92-99) Arterial Blood pH 7.30 (7.35-7.45) L Arterial Blood pCO2 at Patient Temp 64 mmHg (35-46) *H Arterial Blood pO2 at Patient Temp 89 mmHg (75-108) Arterial Blood HCO3 31 mmol/L (21-28) H Arterial Blood Base Excess 3 mmol/L (-3-3) FiO2 60 Test 02/20/22 07:57 02/20/22 11:23 Glucose (Fingerstick) 109 mg/dL (70-99) H 114 mg/dL (70-99) H Laboratory Tests 02/20/22 06:45 Laboratory Tests 02/20/22 06:45 ASSESSMENT/PLAN ASSESSMENT/PLAN 1. Acute on chronic hypercapnic respiratory failure, AECOPD, CHF, cor pulmonale 2. Acute on chronic diastolic CHF 3. Persistent AFIB with RVR 4. DM2: per PCP 5. Hypertension: at low end 6. HLP 7. BALTA, obesity hypoventilation syndrome: poor bipap compliance, last use was 3 weeks ago 8. CAD; Moderate single-vessel coronary artery disease to LAD 9. LLE PAD with noted neuropathy and left 4th toe gangrene: stub toe 3 weeks ago. LLE duplex reviewed 10. LUIS Recommendations Bipap Noted PO lasix at 120 mg and received it today. DC this and reeval lasix need tomorrow. BMP and Mg in AM Continue PO cardizem. Dig IV x1 Hold eliquis for now and start on heparin drip for for stroke prevention. If re nal function is better then will plan for aortogram on Wednesday to further discern his PAD and possible intervention. Consult nephrology Secondary prevention measures He has failed to follow up in office x2 and further failed to use his BiPAP but reported med compliance including eliquis. Discussed treatment adherance. He was suppose to be set for CVN as an outpt but failed to f/u with Dr. Crawford. Will consider for CVN as an inpt. Ongoing lung optimization DARBY TUTTLE MD 02/20/22 1624: CARDIAC CONSULT ASSESSMENT/PLAN ASSESSMENT/PLAN Patient seen and examined The patient remains on BiPAP. I agree with our nurse practitioners assessment and plan. Acute on chronic hypercapnic respiratory failure, AECOPD, CHF, cor pulmonale . On BiPAP. Pulmonary evaluating. Continue diuresis as needed and based on renal function. Acute on chronic diastolic CHF. Diuresis as above. Persistent AFIB with RVR. Holding Eliquis. Starting aspirin for possible angiogram Wednesday. DM2: per PCP Hypertension: at low end HLP BALTA, obesity hypoventilation syndrome: poor bipap compliance, last use was 3 weeks ago CAD; Moderate single-vessel coronary artery disease to LAD LLE PAD with noted neuropathy and left 4th toe gangrene: stub toe 3 weeks ago. LLE duplex reviewed LUIS. Monitoring lab. Renal evaluation. ULISES HOUGH APRN Feb 20, 2022 14:20 DARBY TUTTLE MD Feb 20, 2022 16:24
[2022-02-20 14:48] VITALS: BP 98/64
--- NOTE | 2022-02-20 15:09 | PDOC2 ---
CONSULT Date of Consult Date of Consult DATE: 02/20/22 TIME: 14:42 Reason for Consult Reason for Consult: LUIS Identification/Chief Complaint Chief Complaint Currently on Bipap, Source Source: Chart review, Patient History of Present Illness Reason for Visit: Patient is a 57-year-old CM with history of severe oxygen dependent COPD. He is on 6 liters at home along with BiPAP at nighttime. He has a history of obstructive sleep apnea/obesity hypoventilation syndrome and cor pulmonale. He is not compliant with Bipap at home He was brought into the hospital with complaint of increasing leg edema and also increased shortness of breath , also c/o cough. No chest pain. No fever, no chills. No nausea, vomiting or diarrhea. Reports he did notice some decrease in UOP at home and urinw was dark. Denies any symptoms of UTI or gross hematuria Denies any past Hx of CKD . Denies any Kidney stones , reports use of Ibuprofen rarely . No new med changes by his providers. He is on Lasix ? 120 mg at home At admission- Abnormal Cr, Abnormal CxR ; He also has developed gangrene of his left fifth toe. At presentation He was little confused and dyspneic. Currently On Bipap, answering questions appropriately.Have some conversational dyspnea and Cough. Dyspnea improved with initial diuresis Past Medical History Cardiovascular: CHF, HTN, Hyperlipidemia Pulmonary: COPD, Pneumonia, Other CENTRAL NERVOUS SYSTEM: Periperal neuropathy GI: GERD Heme/Onc: No pertinent hx Hepatobiliary: No pertinent hx Psych: No pertinent hx Rheumatologic: No pertinent hx Infectious disease: No pertinent hx Renal/: No pertinent hx Endocrine: Diabetes Past Surgical History Past Surgical History: Cholecystectomy, Other Family History Family History: Diabetes, Hypertension Social History Quit ALCOHOL: none Drugs: None Lives: with Family Current Problem List Problem List Problems Medical Problems: (1) Acute exacerbation of CHF (congestive heart failure) Status: Acute (2) Acute kidney injury Status: Acute (3) Hypoxia Status: Acute Current Medications Current Medications Current Medications Albuterol/ Ipratropium (Duoneb) 9 ml 1X ONCE NEB ; Start 02/19/22 at 11:30; Stop 02/19/22 at 11:31; Status DC Furosemide (Lasix) 60 mg ONCE ONCE IVP Last administered on 02/19/22at 11:45; Start 02/19/22 at 11:45; Stop 02/19/22 at 11:46; Status DC Acetaminophen (Tylenol) 650 mg PRN Q4HRS PRN PO TEMP OVER 100.4F OR MILD PAIN; Start 02/19/22 at 14:45 Albuterol Sulfate (Ventolin Neb Soln) 2.5 mg PRN Q4HRS PRN NEB SHORTNESS OF BREATH Last administered on 02/20/22at 00:18; Start 02/19/22 at 14:45 Apixaban (Eliquis) 5 mg BID PO Last administered on 02/19/22at 20:42; Start 02/19/22 at 21:00; Stop 02/20/22 at 11:14; Status DC Atorvastatin Calcium (Lipitor) 20 mg QHS PO Last administered on 02/19/22at 20:42; Start 02/19/22 at 21:00 Diltiazem HCl (Cardizem 24hr Cd) 240 mg DAILY PO ; Start 02/20/22 at 09:00 Docusate Sodium (Colace) 100 mg DAILY PO Last administered on 02/20/22 12:50; Start 02/20/22 at 09:00 Furosemide (Lasix) 120 mg DAILY PO Last administered on 02/20/22 13:10; Start 02/20/22 at 09:00; Stop 02/20/22 at 14:09; Status DC Magnesium Oxide (Magnesium Oxide) 400 mg DAILY PO Last administered on 12:52; Start 02/20/22 at 09:00 Pantoprazole Sodium (Protonix) 40 mg DAILYAC PO Last administered on 02/20/22 12:50; Start 02/20/22 at 07:30 Simethicone (Gas-X) 40 mg Q6HRS PO Last administered on 02/20/22 12:50; Start 02/19/22 at 18:00 Albuterol/ Ipratropium (Duoneb) 3 ml RTQID NEB Last administered on 02/20/22at 07:21; Start 02/19/22 at 16:00 Info (Anti-Coagulation Monitoring By Pharmacy) 1 each PRN DAILY PRN MC PER PROTOCOL; Start 02/19/22 at 15:15 Digoxin (Lanoxin) 500 mcg 1X ONCE IV Last administered on 02/19/22at 18:09; Start 02/19/22 at 17:15; Stop 02/19/22 at 17:16; Status DC Piperacillin Sod/ Tazobactam Sod (Zosyn Per Pharmacy) 1 each PRN DAILY PRN MC SEE COMMENTS; Start 02/19/22 at 17:15 Piperacillin Sod/ Tazobactam Sod 3.375 gm/Sodium Chloride 50 ml @ 100 mls/hr Q6HRS IV Last administered on 02/20/22at 12:50; Start 02/19/22 at 18:00 Lactobacillus Rhamnosus (Culturelle) 1 cap BID PO Last administered on 02/20/22at 13:10; Start 02/20/22 at 09:00 Heparin Sodium/ Dextrose 250 ml @ 10 mls/hr CONT PRN PRN IV PER PROTOCOL Last administered on 02/20/22at 11:45; Start 02/20/22 at 11:30 Digoxin (Lanoxin) 500 mcg 1X ONCE IV Last administered on 02/20/22at 11:30; Start 02/20/22 at 11:30; Stop 02/20/22 at 11:31; Status DC Active Scripts Active Simethicone 80 Mg Tab.chew 0.5 Tab PO Q6HRS 10 Days Insulin Lispro Kwikpen U-100 (Insulin Lispro) 100 Unit/1 Ml Insuln.pen 0-9 Unit SQ TIDACHC 30 Days Potassium Chloride (Potassium Chloride) 20 Meq Tablet.er 20 Meq PO DAILYWBKFT 30 Days Pantoprazole Sodium (Pantoprazole Sodium) 40 Mg Tablet.dr 40 Mg PO DAILYAC 30 Days Colace (Docusate Sodium) 100 Mg Capsule 100 Mg PO DAILY 30 Days Magnesium Oxide 400 Mg Tablet 400 Mg PO DAILY 30 Days Acetaminophen 325 Mg Tablet 650 Mg PO PRN Q4HRS PRN 30 Days Atorvastatin Calcium 20 Mg Tablet 20 Mg PO QHS 30 Days Eliquis (Apixaban) 5 Mg Tablet 5 Mg PO BID 30 Days Diltiazem 24Hr Cd (Diltiazem HCl) 240 Mg Cap.er.24h 240 Mg PO DAILY 30 Days [Albuterol Sulfate] 2.5 MG/3 ML Nebu 2.5 Mg NEB PRN Q2HR PRN Reported Furosemide 40 Mg Tablet 3 Tab PO DAILY Advair 500-50 Diskus (Fluticasone/Salmeterol) 1 Each Disk.w.dev 1 Puff INH BID Albuterol Sulfate Neb Soln (Albuterol Sulfate) 2.5 Mg/3 Ml Vial.neb 2.5 Mg NEB PRN Q4-6HRS PRN Glyxambi 25 mg-5 mg Tablet (Empagliflozin/Linagliptin) 1 Each Tablet 1 Each PO DAILY Metformin Hcl Er (Metformin Hcl) 500 Mg Tab.er.24 500 Mg PO BID Lisinopril 5 Mg Tablet 10 Mg PO DAILY Spiriva (Tiotropium [place]) 18 Mcg Cap.w.dev 18 Mcg IH DAILY Allergies Allergies: Coded Allergies: No Known Drug Allergies (Unverified , 02/19/22) ROS Review of System As per HPI, rest of the ROS is negative Physical Exam Physical Exam General: Alert, Oriented X3, Mild distress, waering Bipap HEENT: Atraumatic, PERRLA, On Bipap Neck Supple Lungs: Decreased at bases ant, Heart: irregularly irregular, Abdomen: Normal bowel sounds, Obese Extremities: edema +, Changes of CVI +; left foot there is black dry gangrene of the fourth toe, no surrounding erythema or drainage Skin: No rash Neuro: Grossly normal , moving al extrem Psych/Mental Status: cooperative Lyons +, No CVA or SP tenderness Vital Signs Vital Signs Date Time Temp Pulse Resp B/P (MAP) Pulse Ox O2 Delivery O2 Flow Rate FiO2 02/20/22 13:10 93 BiPAP/CPAP 02/20/22 11:30 130 95/64 02/20/22 11:00 96.2 24 96.2 Assessment & Plan LUIS - Vasomotor/ Cardiorenal/ ATN / Renal US unremarkable .Non Oliguric, Creat stable Supportive care , maintain fluid balance., avoid overdiuresis Avoid Nephrotoxins Baseline Cr 0.7-0.9; 1.1 since Nov 2021- hospitalized at [facility] Microscopic hematuria- UA with Blood and RBC's ? Unsure if Lyons sample . Repeat again. UA in May 2021 Unremarkable Acute hypoxic/hypercapnic respiratory failure requiring BiPAP support- Uses O2 and Bipap at home as well(Non compliant) CHF- card managing diuretics Dry gangrene of the left fourth toe. Vascular recommends angiogram left lower extremity early next week. Monitor for FRANNY , benefit Risk and benefit . Not on IVF 2/2 CHF exacerbation Lactic acidemia History of COPD History of diabetes mellitus type 2 History of tobacco misuse Labs Labs Laboratory Tests Test 02/19/22 11:15 02/19/22 12:00 02/19/22 18:12 02/19/22 19:30 White Blood Count 8.2 x10^3/uL (4.0-11.0) Red Blood Count 4.21 x10^6/uL (4.30-5.70) Hemoglobin 13.2 g/dL (13.0-17.5) Hematocrit 41.5 % (39.0-53.0) Mean Corpuscular Volume 99 fL (79-100) Mean Corpuscular Hemoglobin 31 pg (25-35) Mean Corpuscular Hemoglobin Concent 32 g/dL (31-37) Red Cell Distribution Width 15.6 % (11.5-14.5) Platelet Count 261 x10^3/uL (140-400) Neutrophils (%) (Auto) 77 % (31-73) Lymphocytes (%) (Auto) 14 % (24-48) Monocytes (%) (Auto) 8 % (0-9) Eosinophils (%) (Auto) 1 % (0-3) Basophils (%) (Auto) 1 % (0-3) Neutrophils # (Auto) 6.3 x10^3/uL (1.8-7.7) Lymphocytes # (Auto) 1.1 x10^3/uL (1.0-4.8) Monocytes # (Auto) 0.7 x10^3/uL (0.0-1.1) Eosinophils # (Auto) 0.0 x10^3/uL (0.0-0.7) Basophils # (Auto) 0.0 x10^3/uL (0.0-0.2) Prothrombin Time 14.0 SEC (11.7-14.0) Prothromb Time International Ratio 1.1 (0.8-1.1) Activated Partial Thromboplast Time 29 SEC (24-38) Sodium Level 134 mmol/L (136-145) Potassium Level 4.5 mmol/L (3.5-5.1) Chloride Level 95 mmol/L (98-107) Carbon Dioxide Level 33 mmol/L (21-32) Anion Gap 6 (6-14) Blood Urea Nitrogen 27 mg/dL (8-26) Creatinine 2.2 mg/dL (0.7-1.3) Estimated GFR (Cockcroft-Gault) 31.1 Glucose Level 136 mg/dL (70-99) Lactic Acid Level 1.5 mmol/L (0.4-2.0) Calcium Level 8.3 mg/dL (8.5-10.1) Total Bilirubin 0.7 mg/dL (0.2-1.0) Direct Bilirubin 0.2 mg/dL (0.0-0.2) Aspartate Amino Transf (AST/SGOT) 6 U/L (15-37) Alanine Aminotransferase (ALT/SGPT) 12 U/L (16-63) Alkaline Phosphatase 84 U/L (46-116) Creatine Kinase 32 U/L (39-308) Troponin I High Sensitivity 22 ng/L (4-75) AJ-Dem-Z-Type Natriuretic Peptide 54911 pg/mL (0-124) Total Protein 6.7 g/dL (6.4-8.2) Albumin 2.6 g/dL (3.4-5.0) Influenza Type A Antigen Negative (NEGATIVE) Influenza Type B Antigen Negative (NEGATIVE) Glucose (Fingerstick) 108 mg/dL (70-99) Urine Collection Type Unknown Urine Color (Auto) Light yellow Urine Turbidity Clear Urine pH (Auto) 5.5 (<5.0-8.0) Urine Specific [place] 1.011 (1.000-1.030) Urine Protein (Auto) 300 mg/dL (Negative) Urine Glucose (Auto)(UA) 100 mg/dL (Negative) Urine Ketones (Auto) Negative mg/dL (Negative) Urine Blood (Auto) Large (Negative) Urine Nitrite Negative (Negative) Urine Bilirubin (Auto) Negative (Negative) Urine Urobilinogen (Auto) Normal mg/dL (Normal) Urine Leukocyte Esterase (Auto) Negative (Negative) Urine RBC >40 /HPF (0-2) Urine WBC 1-4 /HPF (0-4) Urine Bacteria 0 /HPF (0-FEW) Urine Hyaline Casts Moderate /HPF Urine Granular Casts Few /HPF Test 02/20/22 06:45 02/20/22 07:25 02/20/22 07:57 02/20/22 11:23 White Blood Count 6.5 x10^3/uL (4.0-11.0) Red Blood Count 3.59 x10^6/uL (4.30-5.70) Hemoglobin 11.4 g/dL (13.0-17.5) Hematocrit 35.5 % (39.0-53.0) Mean Corpuscular Volume 99 fL (79-100) Mean Corpuscular Hemoglobin 32 pg (25-35) Mean Corpuscular Hemoglobin Concent 32 g/dL (31-37) Red Cell Distribution Width 15.9 % (11.5-14.5) Platelet Count 207 x10^3/uL (140-400) Neutrophils (%) (Auto) 73 % (31-73) Lymphocytes (%) (Auto) 13 % (24-48) Monocytes (%) (Auto) 13 % (0-9) Eosinophils (%) (Auto) 1 % (0-3) Basophils (%) (Auto) 1 % (0-3) Neutrophils # (Auto) 4.7 x10^3/uL (1.8-7.7) Lymphocytes # (Auto) 0.9 x10^3/uL (1.0-4.8) Monocytes # (Auto) 0.8 x10^3/uL (0.0-1.1) Eosinophils # (Auto) 0.1 x10^3/uL (0.0-0.7) Basophils # (Auto) 0.0 x10^3/uL (0.0-0.2) Sodium Level 136 mmol/L (136-145) Potassium Level 4.3 mmol/L (3.5-5.1) Chloride Level 98 mmol/L (98-107) Carbon Dioxide Level 35 mmol/L (21-32) Anion Gap 3 (6-14) Blood Urea Nitrogen 28 mg/dL (8-26) Creatinine 2.2 mg/dL (0.7-1.3) Estimated GFR (Cockcroft-Gault) 31.1 BUN/Creatinine Ratio 13 (6-20) Glucose Level 111 mg/dL (70-99) Calcium Level 8.2 mg/dL (8.5-10.1) Total Bilirubin 0.9 mg/dL (0.2-1.0) Aspartate Amino Transf (AST/SGOT) 8 U/L (15-37) Alanine Aminotransferase (ALT/SGPT) 13 U/L (16-63) Alkaline Phosphatase 61 U/L (46-116) Total Protein 5.8 g/dL (6.4-8.2) Albumin 2.0 g/dL (3.4-5.0) Albumin/Globulin Ratio 0.5 (1.0-1.7) O2 Saturation 95 % (92-99) Arterial Blood pH 7.30 (7.35-7.45) Arterial Blood pCO2 at Patient Temp 64 mmHg (35-46) Arterial Blood pO2 at Patient Temp 89 mmHg (75-108) Arterial Blood HCO3 31 mmol/L (21-28) Arterial Blood Base Excess 3 mmol/L (-3-3) FiO2 60 Glucose (Fingerstick) 109 mg/dL (70-99) 114 mg/dL (70-99) Laboratory Tests Test 02/19/22 18:12 02/19/22 19:30 02/20/22 06:45 02/20/22 07:25 Glucose (Fingerstick) 108 mg/dL (70-99) Urine Collection Type Unknown Urine Color (Auto) Light yellow Urine Turbidity Clear Urine pH (Auto) 5.5 (<5.0-8.0) Urine Specific [place] 1.011 (1.000-1.030) Urine Protein (Auto) 300 mg/dL (Negative) Urine Glucose (Auto)(UA) 100 mg/dL (Negative) Urine Ketones (Auto) Negative mg/dL (Negative) Urine Blood (Auto) Large (Negative) Urine Nitrite Negative (Negative) Urine Bilirubin (Auto) Negative (Negative) Urine Urobilinogen (Auto) Normal mg/dL (Normal) Urine Leukocyte Esterase (Auto) Negative (Negative) Urine RBC >40 /HPF (0-2) Urine WBC 1-4 /HPF (0-4) Urine Bacteria 0 /HPF (0-FEW) Urine Hyaline Casts Moderate /HPF Urine Granular Casts Few /HPF White Blood Count 6.5 x10^3/uL (4.0-11.0) Red Blood Count 3.59 x10^6/uL (4.30-5.70) Hemoglobin 11.4 g/dL (13.0-17.5) Hematocrit 35.5 % (39.0-53.0) Mean Corpuscular Volume 99 fL (79-100) Mean Corpuscular Hemoglobin 32 pg (25-35) Mean Corpuscular Hemoglobin Concent 32 g/dL (31-37) Red Cell Distribution Width 15.9 % (11.5-14.5) Platelet Count 207 x10^3/uL (140-400) Neutrophils (%) (Auto) 73 % (31-73) Lymphocytes (%) (Auto) 13 % (24-48) Monocytes (%) (Auto) 13 % (0-9) Eosinophils (%) (Auto) 1 % (0-3) Basophils (%) (Auto) 1 % (0-3) Neutrophils # (Auto) 4.7 x10^3/uL (1.8-7.7) Lymphocytes # (Auto) 0.9 x10^3/uL (1.0-4.8) Monocytes # (Auto) 0.8 x10^3/uL (0.0-1.1) Eosinophils # (Auto) 0.1 x10^3/uL (0.0-0.7) Basophils # (Auto) 0.0 x10^3/uL (0.0-0.2) Sodium Level 136 mmol/L (136-145) Potassium Level 4.3 mmol/L (3.5-5.1) Chloride Level 98 mmol/L (98-107) Carbon Dioxide Level 35 mmol/L (21-32) Anion Gap 3 (6-14) Blood Urea Nitrogen 28 mg/dL (8-26) Creatinine 2.2 mg/dL (0.7-1.3) Estimated GFR (Cockcroft-Gault) 31.1 BUN/Creatinine Ratio 13 (6-20) Glucose Level 111 mg/dL (70-99) Calcium Level 8.2 mg/dL (8.5-10.1) Total Bilirubin 0.9 mg/dL (0.2-1.0) Aspartate Amino Transf (AST/SGOT) 8 U/L (15-37) Alanine Aminotransferase (ALT/SGPT) 13 U/L (16-63) Alkaline Phosphatase 61 U/L (46-116) Total Protein 5.8 g/dL (6.4-8.2) Albumin 2.0 g/dL (3.4-5.0) Albumin/Globulin Ratio 0.5 (1.0-1.7) O2 Saturation 95 % (92-99) Arterial Blood pH 7.30 (7.35-7.45) Arterial Blood pCO2 at Patient Temp 64 mmHg (35-46) Arterial Blood pO2 at Patient Temp 89 mmHg (75-108) Arterial Blood HCO3 31 mmol/L (21-28) Arterial Blood Base Excess 3 mmol/L (-3-3) FiO2 60 Test 02/20/22 07:57 02/20/22 11:23 Glucose (Fingerstick) 109 mg/dL (70-99) 114 mg/dL (70-99) Review All relevant outside records, renal labs, imaging studies, telemetry/EKG's were reviewed. Images Images Chest x-ray -- increasing bilateral interstitial infiltrates and pleural effusions consistent with congestive heart failure. US RENAL BILAT History: Reason: acute renal failure; RT renal lesion seen on CT 02-19-22 / [facility]. Instructions: / History: Comparison: CT February 19, 2022 Procedure: Transabdominal ultrasound images are obtained of the kidneys and bladder. Findings: Right kidney: measures 13.7 x 5.5 x 5.5 cm. Right renal simple cyst superiorly measures 1.8 x 1.9 cm. No hydronephrosis. Left kidney: measures 13.5 x 5.0 x 6.7 cm. Degraded evaluation due to having structures. No hydronephrosis. Urinary bladder: No urinary bladder wall thickening. Distended urinary bladder. The IVC is normal caliber. The visualized abdominal aorta is normal caliber. IMPRESSION: 1. Degraded evaluation. 2. Distended urinary bladder. 3. Right renal cyst corresponding with CT finding. BLAS ORR MD Feb 20, 2022 15:09
[2022-02-20 15:13] LABS: BASE EXCESS ABG 7 mmol/L (-3-3); HCO3 ABG 34 mmol/L (21-28); PCO2 ABG 59 mmHg (35-46); PO2 ABG 58 mmHg (75-108); SAT O2 ABG 88 % (92-99)
[2022-02-20 15:14] LABS: FIO2 ABG 40
--- NOTE | 2022-02-20 15:46 | NUR ---
Wound Care Pt is being taken to surgery 02/24 by vascular surgery. Orders given to RN by surgeon for betadine BID. WC will follow up after surgery as needed
[2022-02-20 19:03] VITALS: BP 93/66
[2022-02-20] MEDS: ATORVASTATIN CALCIUM 20 MG TABLET PO SCH (20:47)
[2022-02-20] MEDS: HEPARIN for IV BOLUS 10,000 UNIT/10 ML VIAL. IV PRN (21:09)
[2022-02-20 22:04] VITALS: BP 121/68
[2022-02-20] MEDS: oxyCODONE/APAP 5/325 1 TAB TABLET PO PRN (23:53)
[2022-02-21] MEDS: ALBUTEROL SULFATE 2.5 MG/3 ML NEBU. NEB PRN
[2022-02-21 02:55] VITALS: BP 99/61
[2022-02-21 04:57] LABS: CALCIUM 7.9 mg/dL (8.5-10.1); CREATININE 2.6 mg/dL (0.7-1.3); GFR 25.7; MAGNESIUM 1.9 mg/dL (1.8-2.4); POTASSIUM 4.2 mmol/L (3.5-5.1)
[2022-02-21] MEDS: SIMETHICONE 80 MG TAB.CHEW PO SCH ×4 (05:30→22:33)
[2022-02-21] MEDS: PIPERACILLIN/TAZOBACTAM 3.375 GM in IV NORMAL SALINE 50ML 50 ML IV SCH ×4 (05:30→23:38)
[2022-02-21] MEDS: HEPARIN for IV BOLUS 10,000 UNIT/10 ML VIAL. IV PRN ×3 (05:35→23:43)
[2022-02-21 07:00] VITALS: BP 96/64
[2022-02-21] MEDS: IPRATRPIUM/ALBUTEROL 0.5/2.5MG 3 ML NEBU. NEB SCH ×4 (07:16→20:16)
[2022-02-21] MEDS: MAGNESIUM OXIDE 400 MG TABLET PO SCH (08:45)
[2022-02-21] MEDS: LACTOBACILLUS RHAMNOSUS GG 1 CAPSULE. PO SCH ×2 (08:45→22:32)
[2022-02-21] MEDS: PANTOPRAZOLE 40 MG TABLET.DR. PO SCH (08:45)
[2022-02-21] MEDS: DOCUSATE SODIUM 100 MG CAPSULE. PO SCH (08:45)
--- NOTE | 2022-02-21 09:17 | PDOC ---
PULMONARY PROGRESS NOTES DATE: 02/21/22 TIME: 09:14 Subjective Patient is up to the chair today, currently on BiPAP at 40%, denies shortness of breath, chest pain or cough this morning, afebrile and no overnight concerns from nursing. Vitals Vital Signs Date Time Temp Pulse Resp B/P (MAP) Pulse Ox O2 Delivery O2 Flow Rate FiO2 02/21/22 07:17 98 BiPAP/CPAP 02/21/22 07:00 97.3 84 25 96/64 (75) 97.3 ROS: No Nausea, No Chest Pain, No Abdominal Pain, No Increase Cough General: Alert, Oriented X4, No acute distress HEENT: Other Lungs: Clear, Other Cardiovascular: S1, S2 Abdomen: Soft, Non-tender Extremities: Other Skin: Warm, Dry Labs Laboratory Tests Test 02/19/22 11:15 02/19/22 12:00 02/19/22 18:12 02/19/22 19:30 White Blood Count 8.2 x10^3/uL (4.0-11.0) Red Blood Count 4.21 x10^6/uL (4.30-5.70) Hemoglobin 13.2 g/dL (13.0-17.5) Hematocrit 41.5 % (39.0-53.0) Mean Corpuscular Volume 99 fL (79-100) Mean Corpuscular Hemoglobin 31 pg (25-35) Mean Corpuscular Hemoglobin Concent 32 g/dL (31-37) Red Cell Distribution Width 15.6 % (11.5-14.5) Platelet Count 261 x10^3/uL (140-400) Neutrophils (%) (Auto) 77 % (31-73) Lymphocytes (%) (Auto) 14 % (24-48) Monocytes (%) (Auto) 8 % (0-9) Eosinophils (%) (Auto) 1 % (0-3) Basophils (%) (Auto) 1 % (0-3) Neutrophils # (Auto) 6.3 x10^3/uL (1.8-7.7) Lymphocytes # (Auto) 1.1 x10^3/uL (1.0-4.8) Monocytes # (Auto) 0.7 x10^3/uL (0.0-1.1) Eosinophils # (Auto) 0.0 x10^3/uL (0.0-0.7) Basophils # (Auto) 0.0 x10^3/uL (0.0-0.2) Prothrombin Time 14.0 SEC (11.7-14.0) Prothromb Time International Ratio 1.1 (0.8-1.1) Activated Partial Thromboplast Time 29 SEC (24-38) Sodium Level 134 mmol/L (136-145) Potassium Level 4.5 mmol/L (3.5-5.1) Chloride Level 95 mmol/L (98-107) Carbon Dioxide Level 33 mmol/L (21-32) Anion Gap 6 (6-14) Blood Urea Nitrogen 27 mg/dL (8-26) Creatinine 2.2 mg/dL (0.7-1.3) Estimated GFR (Cockcroft-Gault) 31.1 Glucose Level 136 mg/dL (70-99) Lactic Acid Level 1.5 mmol/L (0.4-2.0) Calcium Level 8.3 mg/dL (8.5-10.1) Total Bilirubin 0.7 mg/dL (0.2-1.0) Direct Bilirubin 0.2 mg/dL (0.0-0.2) Aspartate Amino Transf (AST/SGOT) 6 U/L (15-37) Alanine Aminotransferase (ALT/SGPT) 12 U/L (16-63) Alkaline Phosphatase 84 U/L (46-116) Creatine Kinase 32 U/L (39-308) Troponin I High Sensitivity 22 ng/L (4-75) GS-Pxk-U-Type Natriuretic Peptide 92595 pg/mL (0-124) Total Protein 6.7 g/dL (6.4-8.2) Albumin 2.6 g/dL (3.4-5.0) Influenza Type A Antigen Negative (NEGATIVE) Influenza Type B Antigen Negative (NEGATIVE) Glucose (Fingerstick) 108 mg/dL (70-99) Urine Collection Type Unknown Urine Color (Auto) Light yellow Urine Turbidity Clear Urine pH (Auto) 5.5 (<5.0-8.0) Urine Specific [place] 1.011 (1.000-1.030) Urine Protein (Auto) 300 mg/dL (Negative) Urine Glucose (Auto)(UA) 100 mg/dL (Negative) Urine Ketones (Auto) Negative mg/dL (Negative) Urine Blood (Auto) Large (Negative) Urine Nitrite Negative (Negative) Urine Bilirubin (Auto) Negative (Negative) Urine Urobilinogen (Auto) Normal mg/dL (Normal) Urine Leukocyte Esterase (Auto) Negative (Negative) Urine RBC >40 /HPF (0-2) Urine WBC 1-4 /HPF (0-4) Urine Bacteria 0 /HPF (0-FEW) Urine Hyaline Casts Moderate /HPF Urine Granular Casts Few /HPF Test 02/20/22 06:45 02/20/22 07:25 02/20/22 07:57 02/20/22 11:23 White Blood Count 6.5 x10^3/uL (4.0-11.0) Red Blood Count 3.59 x10^6/uL (4.30-5.70) Hemoglobin 11.4 g/dL (13.0-17.5) Hematocrit 35.5 % (39.0-53.0) Mean Corpuscular Volume 99 fL (79-100) Mean Corpuscular Hemoglobin 32 pg (25-35) Mean Corpuscular Hemoglobin Concent 32 g/dL (31-37) Red Cell Distribution Width 15.9 % (11.5-14.5) Platelet Count 207 x10^3/uL (140-400) Neutrophils (%) (Auto) 73 % (31-73) Lymphocytes (%) (Auto) 13 % (24-48) Monocytes (%) (Auto) 13 % (0-9) Eosinophils (%) (Auto) 1 % (0-3) Basophils (%) (Auto) 1 % (0-3) Neutrophils # (Auto) 4.7 x10^3/uL (1.8-7.7) Lymphocytes # (Auto) 0.9 x10^3/uL (1.0-4.8) Monocytes # (Auto) 0.8 x10^3/uL (0.0-1.1) Eosinophils # (Auto) 0.1 x10^3/uL (0.0-0.7) Basophils # (Auto) 0.0 x10^3/uL (0.0-0.2) Sodium Level 136 mmol/L (136-145) Potassium Level 4.3 mmol/L (3.5-5.1) Chloride Level 98 mmol/L (98-107) Carbon Dioxide Level 35 mmol/L (21-32) Anion Gap 3 (6-14) Blood Urea Nitrogen 28 mg/dL (8-26) Creatinine 2.2 mg/dL (0.7-1.3) Estimated GFR (Cockcroft-Gault) 31.1 BUN/Creatinine Ratio 13 (6-20) Glucose Level 111 mg/dL (70-99) Calcium Level 8.2 mg/dL (8.5-10.1) Total Bilirubin 0.9 mg/dL (0.2-1.0) Aspartate Amino Transf (AST/SGOT) 8 U/L (15-37) Alanine Aminotransferase (ALT/SGPT) 13 U/L (16-63) Alkaline Phosphatase 61 U/L (46-116) Total Protein 5.8 g/dL (6.4-8.2) Albumin 2.0 g/dL (3.4-5.0) Albumin/Globulin Ratio 0.5 (1.0-1.7) O2 Saturation 95 % (92-99) Arterial Blood pH 7.30 (7.35-7.45) Arterial Blood pCO2 at Patient Temp 64 mmHg (35-46) Arterial Blood pO2 at Patient Temp 89 mmHg (75-108) Arterial Blood HCO3 31 mmol/L (21-28) Arterial Blood Base Excess 3 mmol/L (-3-3) FiO2 60 Glucose (Fingerstick) 109 mg/dL (70-99) 114 mg/dL (70-99) Test 02/20/22 13:50 02/20/22 16:33 02/20/22 17:15 02/20/22 19:06 O2 Saturation 88 % (92-99) Arterial Blood pH 7.38 (7.35-7.45) Arterial Blood pCO2 at Patient Temp 59 mmHg (35-46) Arterial Blood pO2 at Patient Temp 58 mmHg (75-108) Arterial Blood HCO3 34 mmol/L (21-28) Arterial Blood Base Excess 7 mmol/L (-3-3) FiO2 40 Glucose (Fingerstick) 100 mg/dL (70-99) 107 mg/dL (70-99) Activated Partial Thromboplast Time 31 SEC (24-38) Heparin Anti-Xa Act, Unfractionated 0.72 IU/mL (0.30-0.70) Test 02/21/22 02:30 02/21/22 07:49 Activated Partial Thromboplast Time 33 SEC (24-38) Sodium Level 132 mmol/L (136-145) Potassium Level 4.2 mmol/L (3.5-5.1) Chloride Level 96 mmol/L (98-107) Carbon Dioxide Level 32 mmol/L (21-32) Anion Gap 4 (6-14) Blood Urea Nitrogen 33 mg/dL (8-26) Creatinine 2.6 mg/dL (0.7-1.3) Estimated GFR (Cockcroft-Gault) 25.7 Glucose Level 113 mg/dL (70-99) Calcium Level 7.9 mg/dL (8.5-10.1) Magnesium Level 1.9 mg/dL (1.8-2.4) Glucose (Fingerstick) 95 mg/dL (70-99) Laboratory Tests Test 02/20/22 11:23 02/20/22 13:50 02/20/22 16:33 02/20/22 17:15 Glucose (Fingerstick) 114 mg/dL (70-99) 100 mg/dL (70-99) O2 Saturation 88 % (92-99) Arterial Blood pH 7.38 (7.35-7.45) Arterial Blood pCO2 at Patient Temp 59 mmHg (35-46) Arterial Blood pO2 at Patient Temp 58 mmHg (75-108) Arterial Blood HCO3 34 mmol/L (21-28) Arterial Blood Base Excess 7 mmol/L (-3-3) FiO2 40 Activated Partial Thromboplast Time 31 SEC (24-38) Heparin Anti-Xa Act, Unfractionated 0.72 IU/mL (0.30-0.70) Test 02/20/22 19:06 02/21/22 02:30 02/21/22 07:49 Glucose (Fingerstick) 107 mg/dL (70-99) 95 mg/dL (70-99) Activated Partial Thromboplast Time 33 SEC (24-38) Sodium Level 132 mmol/L (136-145) Potassium Level 4.2 mmol/L (3.5-5.1) Chloride Level 96 mmol/L (98-107) Carbon Dioxide Level 32 mmol/L (21-32) Anion Gap 4 (6-14) Blood Urea Nitrogen 33 mg/dL (8-26) Creatinine 2.6 mg/dL (0.7-1.3) Estimated GFR (Cockcroft-Gault) 25.7 Glucose Level 113 mg/dL (70-99) Calcium Level 7.9 mg/dL (8.5-10.1) Magnesium Level 1.9 mg/dL (1.8-2.4) Medications Active Scripts Medications Dose Route/Sig Max Daily Dose Days Date Category Simethicone 80 Mg Tab.chew 0.5 Tab PO Q6HRS 10 12/19/21 Rx Insulin Lispro Kwikpen U-100 (Insulin Lispro) 100 Unit/1 Ml Insuln.pen 0-9 Unit SQ TIDACHC 30 12/19/21 Rx Potassium Chloride (Potassium Chloride) 20 Meq Tablet.er 20 Meq PO DAILYWBKFT 12/19/21 Rx Pantoprazole Sodium (Pantoprazole Sodium) 40 Mg Tablet.dr 40 Mg PO DAILYAC 12/19/21 Rx Colace (Docusate Sodium) 100 Mg Capsule 100 Mg PO DAILY 30 12/19/21 Rx Magnesium Oxide 400 Mg Tablet 400 Mg PO DAILY 30 12/19/21 Rx Acetaminophen 325 Mg Tablet 650 Mg PO PRN Q4HRS PRN 30 12/19/21 Rx Atorvastatin Calcium 20 Mg Tablet 20 Mg PO QHS 30 12/19/21 Rx Furosemide 40 Mg Tablet 3 Tab PO DAILY 12/03/21 Reported Eliquis (Apixaban) 5 Mg Tablet 5 Mg PO BID 30 09/30/21 Rx Diltiazem 24Hr Cd (Diltiazem HCl) 240 Mg Cap.er.24h 240 Mg PO DAILY 30 09/30/21 Rx Advair 500-50 Diskus (Fluticasone/Salmeterol) 1 Each Disk.w.dev 1 Puff INH BID 09/24/21 Reported Albuterol Sulfate Neb Soln (Albuterol Sulfate) 2.5 Mg/3 Ml Vial.neb 2.5 Mg NEB PRN Q4-6HRS PRN 06/12/21 Reported Glyxambi 25 mg-5 mg Tablet (Empagliflozin/Linagliptin) 1 Each Tablet 1 Each PO DAILY 01/03/21 Reported [Albuterol Sulfate] 2.5 MG/3 ML Nebu 2.5 Mg NEB PRN Q2HR PRN 09/26/14 Rx Metformin Hcl Er (Metformin Hcl) 500 Mg Tab.er.24 500 Mg PO BID 12/29/13 Reported Lisinopril 5 Mg Tablet 10 Mg PO DAILY 11/26/13 Reported Spiriva (Tiotropium Veyo) 18 Mcg Cap.w.dev 18 Mcg IH DAILY 11/26/13 Reported Impression . IMPRESSION: 1. Acute on chronic hypercapnic and hypoxic respiratory failure secondary to acute on chronic cor pulmonale, component of diastolic congestive heart failure and acute exacerbation of chronic obstructive pulmonary disease. 2. Abnormal chest x-ray revealed increasing bilateral interstitial infiltrates and pleural effusions consistent with heart failure. It is combination of diastolic congestive heart failure and acute on chronic right heart failure. 3. Underlying severe chronic obstructive pulmonary disease with chronic hypercapnia and chronic hypoxic respiratory failure. 4. Underlying obesity, hypoventilation syndrome and cor pulmonale. An obstructive sleep apnea. 5. Chronic kidney disease. 6. Paroxysmal atrial fibrillation. On chronic anticoagulation. 7. Severe protein-calorie malnutrition. Plan . Updated 02/21/2022 Continue supplemental oxygen to keep oxygen saturations greater than 90%, patient is currently on BiPAP however ABG is compensated today patient can transition to Ventimask at 40% Bronchodilators Follow chest x-ray/ABG as needed Follow nephrology recommendations in regards to LUIS on CKD, avoid nephrotoxic medications, worsening creatinine today Follow cardiology's recommendations in regards to diuresis Continue Eliquis Physical therapy/Occupational Therapy DVT/GI prophylaxis Discussed with RN RECOMMENDATIONS: 1. I have discussed with RN and RT. I have made adjustments on the BiPAP. IPAP has been increased and EPAP has been reduced and FiO2 has been reduced to 40%. 2. Follow ABGs and make necessary adjustment. 3. Continue diuresis while keeping a close eye on renal function. 4. Continue Eliquis. 5. Bronchodilators. 6. Clinically, I do not see a need for antibiotics. We will deescalate soon. 7. Follow vascular surgery recommendations regarding gangrene of the left fifth toe. 8. Discussed with RN. Chart reviewed. Imaging studies reviewed. IRAIS HICKS MD Feb 21, 2022 09:17
[2022-02-21] MEDS: HEPARIN 25,000UTS/250ML PREMIX 250 ML IV PRN ×2 (10:46→16:40)
[2022-02-21 11:00] VITALS: BP 103/62
--- NOTE | 2022-02-21 11:02 | PDOC ---
DATE OF SERVICE: DOS: DATE: 02/21/22 TIME: 11:01 SUBJECTIVE ROS Follow-up for acute renal failure Patient remains on BiPAP denies any new complaints. Lyons catheter in place with good urine output CVS: ? Orthopnea, no CP RESP: + SOB, ? MARQUEZ(not ambulated) GI: no Nausea, no Vomiting : no Dysuria, no Urgency OBJECTIVE Vital Signs Vital Signs Date Time Temp Pulse Resp B/P (MAP) Pulse Ox O2 Delivery O2 Flow Rate FiO2 02/21/22 09:00 84 96/64 02/21/22 08:00 Bi-pap 02/21/22 07:17 98 02/21/22 07:00 97.3 25 97.3 I & 0 Intake and Output 02/21/22 07:00 Intake Total 2000 ml Output Total 2350 ml Balance -350 ml Intake Oral 2000 ml Output Urine Total 2350 ml PHYSICAL EXAM Physical Exam GEN: Awake, Oriented x 3, In no distress EYES: Vision Unchanged, Conjunctiva Normal EN: No EN Drainage, Mucous Membranes moist NECK: no JVD, min JVP, Supple, no Thyromegaly CVS: S1S2, ? soft Murmur, No Gallop, No Rub,++ Edema RESP: few basal Rales, no Rhonchi,no Acc. Muscle Use GI: BS + ve, NO Bruit, Non Tender, Non Distended : no CVA tenderness, no Suprapubic Tenderness DIAGNOSIS/ASSESSMENT Assessment & Plan Acute kidney injury: Precise etiology unclear. Unclear if gangrenous toe and associated inflammation is contributing to possible ATN. Some amount of bladder outlet obstruction was also noted. Lyons catheter is currently in place despite the creatinine is now corrected drastically suggestive of possible underlying CKD. Current fluid and E-lyte status does not necessitate emergent need for dialysis but may be needed if difficult to manage fluid status Underlying CKD from diabetic hypertensive nephrosclerosis cannot be ruled out. Baseline Cr 0.7-0.9; 1.1 since Nov 2021- hospitalized at [facility] Shortness of breath with possible diastolic CHF. Given current blood pressures would recommend checking echocardiogram. Will defer this to cardiology. Diuresis is required Proteinuria: Quantitate with ratio Possible urinary retention, be overall: Lyons catheter in place currently. Will need voiding trial prior to discharge Borderline low blood pressure at this time: Gentle diuresis ongoing at this time. May benefit from echocardiography Microscopic hematuria- UA with Blood and RBC's ? Unsure if related to Lyons trauma. Repeat UA. ATN versus other etiologies may need to be evaluated for History of diastolic CHF-defer diuretics to cardiology Dry gangrene of the left fourth toe. Will need angiography once respiratory status and renal status is optimized COMMENT/RELEVANT DATA Meds Current Medications Medications (Trade) Dose Ordered Sig/Theresa Start Time Stop Time Status Last Admin Dose Admin Acetaminophen (Tylenol) 650 mg PRN Q4HRS PRN 02/19/22 14:45 Albuterol Sulfate (Ventolin Neb Soln) 2.5 mg PRN Q4HRS PRN 02/19/22 14:45 02/21/22 00:00 2.5 MG Albuterol/ Ipratropium (Duoneb) 3 ml RTQID 02/19/22 16:00 02/21/22 07:16 3 ML Apixaban (Eliquis) 5 mg BID 02/19/22 21:00 02/20/22 11:14 DC 02/19/22 20:42 5 MG Atorvastatin Calcium (Lipitor) 20 mg QHS 02/19/22 21:00 02/20/22 20:47 20 MG Digoxin (Lanoxin) 500 mcg 1X ONCE 02/20/22 11:30 02/20/22 11:31 DC 02/20/22 11:30 500 MCG Diltiazem HCl (Cardizem 24hr Cd) 240 mg DAILY 02/20/22 09:00 Docusate Sodium (Colace) 100 mg DAILY 02/20/22 09:00 02/21/22 08:45 100 MG Furosemide (Lasix) 120 mg DAILY 02/20/22 09:00 02/20/22 14:09 DC 02/20/22 13:10 120 MG Heparin Sodium (Porcine) (Heparin Sodium) 25 UNITS / KG PRN Q6HRS PRN 02/20/22 19:45 02/21/22 05:35 3,275 UNIT Heparin Sodium/ Dextrose 250 ml @ 10 mls/hr CONT PRN 02/20/22 19:45 02/21/22 10:46 15 MLS/HR Info (Anti-Coagulation Monitoring By Pharmacy) 1 each PRN DAILY PRN 02/19/22 15:15 Lactobacillus Rhamnosus (Culturelle) 1 cap BID 02/20/22 09:00 02/21/22 08:45 1 CAP Magnesium Oxide (Magnesium Oxide) 400 mg DAILY 02/20/22 09:00 02/21/22 08:45 400 MG Oxycodone/ Acetaminophen (Percocet 5/325) 1 tab PRN Q4HRS PRN 02/20/22 23:30 02/20/22 23:53 1 TAB Pantoprazole Sodium (Protonix) 40 mg DAILYAC 02/20/22 07:30 02/21/22 08:45 40 MG Piperacillin Sod/ Tazobactam Sod (Zosyn Per Pharmacy) 1 each PRN DAILY PRN 02/19/22 17:15 Piperacillin Sod/ Tazobactam Sod 3.375 gm/Sodium Chloride 50 ml @ 100 mls/hr Q6HRS 02/19/22 18:00 02/21/22 05:30 100 MLS/HR Simethicone (Gas-X) 40 mg Q6HRS 02/19/22 18:00 02/20/22 23:56 40 MG Lab Laboratory Tests Test 02/20/22 11:23 02/20/22 13:50 02/20/22 16:33 02/20/22 17:15 Glucose (Fingerstick) 114 mg/dL (70-99) 100 mg/dL (70-99) O2 Saturation 88 % (92-99) Arterial Blood pH 7.38 (7.35-7.45) Arterial Blood pCO2 at Patient Temp 59 mmHg (35-46) Arterial Blood pO2 at Patient Temp 58 mmHg (75-108) Arterial Blood HCO3 34 mmol/L (21-28) Arterial Blood Base Excess 7 mmol/L (-3-3) FiO2 40 Activated Partial Thromboplast Time 31 SEC (24-38) Heparin Anti-Xa Act, Unfractionated 0.72 IU/mL (0.30-0.70) Test 02/20/22 19:06 02/21/22 02:30 02/21/22 07:49 Glucose (Fingerstick) 107 mg/dL (70-99) 95 mg/dL (70-99) Activated Partial Thromboplast Time 33 SEC (24-38) Sodium Level 132 mmol/L (136-145) Potassium Level 4.2 mmol/L (3.5-5.1) Chloride Level 96 mmol/L (98-107) Carbon Dioxide Level 32 mmol/L (21-32) Anion Gap 4 (6-14) Blood Urea Nitrogen 33 mg/dL (8-26) Creatinine 2.6 mg/dL (0.7-1.3) Estimated GFR (Cockcroft-Gault) 25.7 Glucose Level 113 mg/dL (70-99) Calcium Level 7.9 mg/dL (8.5-10.1) Magnesium Level 1.9 mg/dL (1.8-2.4) Results All relevant outside records, renal labs, imaging studies, telemetry/EKG's were reviewed. Other Most recent echo from December 19 The left ventricle is normal size. The left ventricular systolic function is normal and the ejection fraction is within normal range. Left ventricular ejection fraction of 50 to 55%. Doppler and Color Flow revealed no significant aortic regurgitation. There is no significant aortic valvular stenosis. Doppler and Color Flow revealed trace mitral valve regurgitation. Doppler and Color Flow revealed mild tricuspid regurgitation. Signed by : Juancarlos Villegas MD Electronically Approved : 08/05/2021 18:24:24 Renal sono 02/19/2022: Findings: Right kidney: measures 13.7 x 5.5 x 5.5 cm. Right renal simple cyst superiorly measures 1.8 x 1.9 cm. No hydronephrosis. Left kidney: measures 13.5 x 5.0 x 6.7 cm. Degraded evaluation due to having s tructures. No hydronephrosis. Urinary bladder: No urinary bladder wall thickening. Distended urinary bladder. The IVC is normal caliber. The visualized abdominal aorta is normal caliber. IMPRESSION: 1. Degraded evaluation. 2. Distended urinary bladder. 3. Right renal cyst corresponding with CT finding Justicifation of Admission Dx: Justifications for Admission: Justification of Admission Dx: Yes Respiratory Failure: Severe Resp Distress JESSICA NUGENT MD Feb 21, 2022 11:02
--- NOTE | 2022-02-21 13:22 | PDOC ---
[facility] PROGRESS NOTE Date of Service DOS: DATE: 02/21/22 TIME: 13:21 Chief Complaint Chief Complaint Acute hypoxic/hypercapnic respiratory failure requiring BiPAP support Abnormal CXR - possible gram-negative organisms possible aspiration Left 2nd toe ulcer H/o A. Acute electrolyte derangementhyponatremia, likely hypervolemic Acute on chronic respiratory acidosis Lactic acidemia Elevated BNP suggestive of volume overload History of COPD History of diabetes mellitus type 2 History of tobacco misuse History of Present Illness History of Present Illness Mr Pelayo is a 57-year-old male with past medical history of CHF, COPD on 6 L home O2, diabetes mellitus 2 who comes in with shortness of breath for the past several weeks. The past few days has worsened to the point where he needed to come to the ED for further evaluation. Patient is on torsemide at home for his CHF. He is little confused and so dyspneic with NT proBNP greater than 13,000 dyspnea did improve with initial diuresis and increasing supplemental O2 and was placed on BiPAP with improvement and admitted for further care. 02/20: Overnight continued on BiPAP 14/ with a 16rr, 60% FiO2 with ABG 7.2 96/64/88. Seen by podiatry for consideration of left second toe amputation and cardiology for consideration for aortogram with runoff given monophasic findings on left lower extremity arterial Doppler with no clear occlusive disease in the lower extremity. Shortness of breath and cough conversational dyspnea. Is able to talk through his BiPAP. No significant chest discomfort currently. 02/21: Seen on BiPAP 40% this morning. Has conversational dyspnea but otherwise he feels the shortness of breath improving. CR 2.6. No chest pain. Polymicrobial infection in his toe. Consults: Cardiology, pulmonology, podiatry, vascular surgery Vitals/I&O Vitals/I&O: Vital Signs Date Time Temp Pulse Resp B/P (MAP) Pulse Ox O2 Delivery O2 Flow Rate FiO2 02/21/22 11:23 91 BiPAP/CPAP 02/21/22 11:00 97.3 92 25 103/62 (76) 97.3 I & O 02/20/22 02/20/22 02/21/22 15:00 23:00 07:00 Intake Total 100 ml 1500 ml 400 ml Output Total 500 ml 850 ml 1000 ml Balance -400 ml 650 ml -600 ml Physical Exam General: Alert, Oriented X3, Cooperative, mild distress Heart: Other (AFIB RVR) Lungs: Clear, Other Abdomen: Soft, No tenderness Extremities: No cyanosis, Other (2-3+ bilateral LE pitting edema) Skin: Other (scaly BLE skin with skin sloughing. left 4th toe with dry gangrene) Labs Labs: Laboratory Tests Test 02/20/22 13:50 02/20/22 16:33 02/20/22 17:15 02/20/22 19:06 O2 Saturation 88 % (92-99) Arterial Blood pH 7.38 (7.35-7.45) Arterial Blood pCO2 at Patient Temp 59 mmHg (35-46) Arterial Blood pO2 at Patient Temp 58 mmHg (75-108) Arterial Blood HCO3 34 mmol/L (21-28) Arterial Blood Base Excess 7 mmol/L (-3-3) FiO2 40 Glucose (Fingerstick) 100 mg/dL (70-99) 107 mg/dL (70-99) Activated Partial Thromboplast Time 31 SEC (24-38) Heparin Anti-Xa Act, Unfractionated 0.72 IU/mL (0.30-0.70) Test 02/21/22 02:30 02/21/22 07:49 02/21/22 11:02 Activated Partial Thromboplast Time 33 SEC (24-38) 31 SEC (24-38) Sodium Level 132 mmol/L (136-145) Potassium Level 4.2 mmol/L (3.5-5.1) Chloride Level 96 mmol/L (98-107) Carbon Dioxide Level 32 mmol/L (21-32) Anion Gap 4 (6-14) Blood Urea Nitrogen 33 mg/dL (8-26) Creatinine 2.6 mg/dL (0.7-1.3) Estimated GFR (Cockcroft-Gault) 25.7 Glucose Level 113 mg/dL (70-99) Calcium Level 7.9 mg/dL (8.5-10.1) Magnesium Level 1.9 mg/dL (1.8-2.4) Lipase 98 U/L (73-393) Glucose (Fingerstick) 95 mg/dL (70-99) Assessment and Plan Assessmemt and Plan Problems Medical Problems: (1) Acute exacerbation of CHF (congestive heart failure) Status: Acute (2) Acute kidney injury Status: Acute (3) Hypoxia Status: Acute Comment Review of Relevant I have reviewed the following items wade (where applicable) has been applied. Medications: Current Medications Medications (Trade) Dose Ordered Sig/Theresa Route PRN Reason Start Time Stop Time Status Last Admin Dose Admin Heparin Sodium/ Dextrose 250 ml @ 10 mls/hr CONT PRN IV PER PROTOCOL 02/20/22 19:45 02/21/22 10:46 Heparin Sodium (Porcine) (Heparin Sodium) 25 UNITS / KG PRN Q6HRS PRN IV FOR PTT < 40 02/20/22 19:45 02/21/22 05:35 Oxycodone/ Acetaminophen (Percocet 5/325) 1 tab PRN Q4HRS PRN PO SEVERE PAIN 7-10 02/20/22 23:30 02/20/22 23:53 Justifications for Admission Other Justification Acute hypoxemic respiratory failure ABY GUERIN MD Feb 21, 2022 13:22
--- NOTE | 2022-02-21 14:20 | PDOC ---
CARDIOLOGY PROGRESS NOTE SUBJECTIVE: No new events overnight. Pt. remains on Bipap. Denies any chest pain. No syncope or palpitations. HR is well controlled. BP is lower end. OBJECTIVE: Vital Signs/I&O: Vital Signs Date Time Temp Pulse Resp B/P (MAP) Pulse Ox O2 Delivery O2 Flow Rate FiO2 02/21/22 11:23 91 BiPAP/CPAP 02/21/22 11:00 97.3 92 25 103/62 (76) 97.3 I & O 02/20/22 02/20/22 02/21/22 15:00 23:00 07:00 Intake Total 100 ml 1500 ml 400 ml Output Total 500 ml 850 ml 1000 ml Balance -400 ml 650 ml -600 ml Objective: GEN.: No apparent distress. Alert and oriented. HEENT: Head is normocephalic, atraumatic NECK: Supple. LUNGS: Clear to auscultation. HEART: irr irr, S1, S2 present. Peripheral pulses intact ABDOMEN: Soft, nontender. Positive bowel sounds. EXTREMITIES: L 4th toe gangrene, venous stasis changes. 1+ BLE NEUROLOGIC: Normal speech, normal tone PSYCHIATRIC: Normal affect, normal mood. CURRENT MEDICATIONS: Hep gtt Diltiazem Atorvastatin DIAGNOSTIC TESTING: Doppler studies reviewed - I suspect based on velocities and reviewed of images that he probably has small vessel disease at the level of the ankle rather than any amenable large vessel disease. Would recommend CO2 angiography. Echo from 07/2021 reviewed. Cath from 11/2021 Reviewed. Labs: Labs reviewed ASSESSMENT: 1. Acute respiratory failure 2. COPD 3. Chronic diastolic HF with acute decompensation 4. Acute kidney injury 5. PAD PLAN: 1. Continue hep gtt 2. Start ASA 81mg daily 3. Continue diltiazem and statin therapy. 4. Reviewed prior CT angio of the chest/abd from 2020 and I have low suspicion for any proximal aorto-iliac disease. I suspect this is all related to small vessel disease at the level of the ankle. Defer to vascular surgery regarding aortogram timing and amputation. 5. Will repeat echo to rule out any new CMP or etiology for embolic sources. Supportive care. Justicifation of Admission Dx: Justifications for Admission: Justification of Admission Dx: Yes Respiratory Failure: Severe Resp Distress MARLON CASTILLO MD Feb 21, 2022 14:20
[2022-02-21 15:00] VITALS: BP 94/59
[2022-02-21] MEDS: ANTI-COAG MONITOR BY PHARMACY. MC PRN (15:01)
[2022-02-21] MEDS: ASPIRIN ENTERIC COATED 81 MG TABLET.DR. PO SCH (16:20)
[2022-02-21 19:09] LABS: BACTERIA,URINE FEW /HPF (0-FEW); GRANULAR CASTS,URINE FEW /HPF; HYALINE CASTS, URINE FEW /HPF; RBC,URINE TNTC /HPF (0-2)
[2022-02-21 19:29] VITALS: BP 100/58
[2022-02-21] MEDS: ATORVASTATIN CALCIUM 20 MG TABLET PO SCH (22:31)
[2022-02-21] MEDS: oxyCODONE/APAP 5/325 1 TAB TABLET PO PRN (22:32)
[2022-02-21 22:44] VITALS: BP 119/68
[2022-02-22] MEDS: HEPARIN 25,000UTS/250ML PREMIX 250 ML IV PRN ×3 (02:24→16:30)
[2022-02-22 03:27] VITALS: BP 99/68
[2022-02-22] MEDS: SIMETHICONE 80 MG TAB.CHEW PO SCH ×3 (06:00→17:17)
[2022-02-22] MEDS: PIPERACILLIN/TAZOBACTAM 3.375 GM in IV NORMAL SALINE 50ML 50 ML IV SCH ×3 (06:23→17:18)
[2022-02-22 06:28] VITALS: BP 114/66
[2022-02-22] MEDS: IPRATRPIUM/ALBUTEROL 0.5/2.5MG 3 ML NEBU. NEB SCH ×4 (07:05→17:59)
[2022-02-22 08:02] LABS: CREATININE 2.7 mg/dL (0.7-1.3); GFR 24.6
[2022-02-22] MEDS: PANTOPRAZOLE 40 MG TABLET.DR. PO SCH (09:28)
[2022-02-22] MEDS: LACTOBACILLUS RHAMNOSUS GG 1 CAPSULE. PO SCH ×2 (09:28→22:04)
[2022-02-22] MEDS: DOCUSATE SODIUM 100 MG CAPSULE. PO SCH (09:28)
[2022-02-22] MEDS: ASPIRIN ENTERIC COATED 81 MG TABLET.DR. PO SCH (09:28)
[2022-02-22] MEDS: MAGNESIUM OXIDE 400 MG TABLET PO SCH (09:28)
--- NOTE | 2022-02-22 09:54 | PDOC ---
PULMONARY PROGRESS NOTES DATE: 02/22/22 TIME: 09:52 Subjective Patient is up to the chair today, currently on BiPAP at 40%, denies shortness of breath, chest pain or cough this morning, afebrile and no overnight concerns from nursing. Vitals Vital Signs Date Time Temp Pulse Resp B/P (MAP) Pulse Ox O2 Delivery O2 Flow Rate FiO2 02/22/22 09:28 88 114/66 02/22/22 07:06 95 BiPAP/CPAP 02/22/22 06:28 97.4 24 97.4 ROS: No Nausea, No Chest Pain, No Abdominal Pain, No Increase Cough General: Alert, Oriented X4, No acute distress HEENT: Other Lungs: Clear, Other Cardiovascular: S1, S2 Abdomen: Soft, Non-tender Extremities: Other Skin: Warm, Dry Labs Laboratory Tests Test 02/20/22 11:23 02/20/22 13:50 02/20/22 16:33 02/20/22 17:15 Glucose (Fingerstick) 114 mg/dL (70-99) 100 mg/dL (70-99) O2 Saturation 88 % (92-99) Arterial Blood pH 7.38 (7.35-7.45) Arterial Blood pCO2 at Patient Temp 59 mmHg (35-46) Arterial Blood pO2 at Patient Temp 58 mmHg (75-108) Arterial Blood HCO3 34 mmol/L (21-28) Arterial Blood Base Excess 7 mmol/L (-3-3) FiO2 40 Activated Partial Thromboplast Time 31 SEC (24-38) Heparin Anti-Xa Act, Unfractionated 0.72 IU/mL (0.30-0.70) Test 02/20/22 19:06 02/21/22 02:30 02/21/22 07:49 02/21/22 11:02 Glucose (Fingerstick) 107 mg/dL (70-99) 95 mg/dL (70-99) Activated Partial Thromboplast Time 33 SEC (24-38) 31 SEC (24-38) Sodium Level 132 mmol/L (136-145) Potassium Level 4.2 mmol/L (3.5-5.1) Chloride Level 96 mmol/L (98-107) Carbon Dioxide Level 32 mmol/L (21-32) Anion Gap 4 (6-14) Blood Urea Nitrogen 33 mg/dL (8-26) Creatinine 2.6 mg/dL (0.7-1.3) Estimated GFR (Cockcroft-Gault) 25.7 Glucose Level 113 mg/dL (70-99) Calcium Level 7.9 mg/dL (8.5-10.1) Magnesium Level 1.9 mg/dL (1.8-2.4) Lipase 98 U/L (73-393) Test 02/21/22 17:14 02/21/22 18:05 02/21/22 20:51 02/21/22 22:30 Glucose (Fingerstick) 151 mg/dL (70-99) 162 mg/dL (70-99) Urine Collection Type Unknown Urine Color (Auto) Light orange Urine Turbidity Turbid Urine pH (Auto) 5.5 (<5.0-8.0) Urine Specific [place] 1.013 (1.000-1.030) Urine Protein (Auto) 200 mg/dL (Negative) Urine Glucose (Auto)(UA) 100 mg/dL (Negative) Urine Ketones (Auto) Negative mg/dL (Negative) Urine Blood (Auto) Large (Negative) Urine Nitrite Negative (Negative) Urine Bilirubin (Auto) Negative (Negative) Urine Urobilinogen (Auto) Normal mg/dL (Normal) Urine Leukocyte Esterase (Auto) Small (Negative) Urine RBC Tntc /HPF (0-2) Urine WBC 11-20 /HPF (0-4) Urine Squamous Epithelial Cells Few /LPF Urine Bacteria Few /HPF (0-FEW) Urine Hyaline Casts Few /HPF Urine Granular Casts Few /HPF Urine Random Creatinine 61.0 mg/dL (Not Establ.) Urine Random Total Protein 478.6 mg/dL (Not Establ.) Urine Protein/Creatinine Ratio 7846 mg/g (0-200) Activated Partial Thromboplast Time 38 SEC (24-38) Test 02/22/22 06:05 02/22/22 07:07 02/22/22 07:08 Activated Partial Thromboplast Time 54 SEC (24-38) Sodium Level 134 mmol/L (136-145) Potassium Level 4.0 mmol/L (3.5-5.1) Chloride Level 95 mmol/L (98-107) Carbon Dioxide Level 33 mmol/L (21-32) Anion Gap 6 (6-14) Blood Urea Nitrogen 35 mg/dL (8-26) Creatinine 2.7 mg/dL (0.7-1.3) Estimated GFR (Cockcroft-Gault) 24.6 Glucose Level 102 mg/dL (70-99) Calcium Level 8.0 mg/dL (8.5-10.1) Creatine Kinase 25 U/L (39-308) Glucose (Fingerstick) 111 mg/dL (70-99) 112 mg/dL (70-99) Laboratory Tests Test 02/21/22 11:02 02/21/22 17:14 02/21/22 18:05 02/21/22 20:51 Activated Partial Thromboplast Time 31 SEC (24-38) Glucose (Fingerstick) 151 mg/dL (70-99) 162 mg/dL (70-99) Urine Collection Type Unknown Urine Color (Auto) Light orange Urine Turbidity Turbid Urine pH (Auto) 5.5 (<5.0-8.0) Urine Specific [place] 1.013 (1.000-1.030) Urine Protein (Auto) 200 mg/dL (Negative) Urine Glucose (Auto)(UA) 100 mg/dL (Negative) Urine Ketones (Auto) Negative mg/dL (Negative) Urine Blood (Auto) Large (Negative) Urine Nitrite Negative (Negative) Urine Bilirubin (Auto) Negative (Negative) Urine Urobilinogen (Auto) Normal mg/dL (Normal) Urine Leukocyte Esterase (Auto) Small (Negative) Urine RBC Tntc /HPF (0-2) Urine WBC 11-20 /HPF (0-4) Urine Squamous Epithelial Cells Few /LPF Urine Bacteria Few /HPF (0-FEW) Urine Hyaline Casts Few /HPF Urine Granular Casts Few /HPF Urine Random Creatinine 61.0 mg/dL (Not Establ.) Urine Random Total Protein 478.6 mg/dL (Not Establ.) Urine Protein/Creatinine Ratio 7846 mg/g (0-200) Test 02/21/22 22:30 02/22/22 06:05 02/22/22 07:07 02/22/22 07:08 Activated Partial Thromboplast Time 38 SEC (24-38) 54 SEC (24-38) Sodium Level 134 mmol/L (136-145) Potassium Level 4.0 mmol/L (3.5-5.1) Chloride Level 95 mmol/L (98-107) Carbon Dioxide Level 33 mmol/L (21-32) Anion Gap 6 (6-14) Blood Urea Nitrogen 35 mg/dL (8-26) Creatinine 2.7 mg/dL (0.7-1.3) Estimated GFR (Cockcroft-Gault) 24.6 Glucose Level 102 mg/dL (70-99) Calcium Level 8.0 mg/dL (8.5-10.1) Creatine Kinase 25 U/L (39-308) Glucose (Fingerstick) 111 mg/dL (70-99) 112 mg/dL (70-99) Medications Active Scripts Medications Dose Route/Sig Max Daily Dose Days Date Category Simethicone 80 Mg Tab.chew 0.5 Tab PO Q6HRS 12/19/21 Rx Insulin Lispro Kwikpen U-100 (Insulin Lispro) 100 Unit/1 Ml Insuln.pen 0-9 Unit SQ TIDACHC 12/19/21 Rx Potassium Chloride (Potassium Chloride) 20 Meq Tablet.er 20 Meq PO DAILYWBKFT 12/19/21 Rx Pantoprazole Sodium (Pantoprazole Sodium) 40 Mg Tablet.dr 40 Mg PO DAILYAC 12/19/21 Rx Colace (Docusate Sodium) 100 Mg Capsule 100 Mg PO DAILY 30 12/19/21 Rx Magnesium Oxide 400 Mg Tablet 400 Mg PO DAILY 12/19/21 Rx Acetaminophen 325 Mg Tablet 650 Mg PO PRN Q4HRS PRN 12/19/21 Rx Atorvastatin Calcium 20 Mg Tablet 20 Mg PO QHS 12/19/21 Rx Furosemide 40 Mg Tablet 3 Tab PO DAILY 12/03/21 Reported Eliquis (Apixaban) 5 Mg Tablet 5 Mg PO BID 30 09/30/21 Rx Diltiazem 24Hr Cd (Diltiazem HCl) 240 Mg Cap.er.24h 240 Mg PO DAILY 30 09/30/21 Rx Advair 500-50 Diskus (Fluticasone/Salmeterol) 1 Each Disk.w.dev 1 Puff INH BID 09/24/21 Reported Albuterol Sulfate Neb Soln (Albuterol Sulfate) 2.5 Mg/3 Ml Vial.neb 2.5 Mg NEB PRN Q4-6HRS PRN 06/12/21 Reported Glyxambi 25 mg-5 mg Tablet (Empagliflozin/Linagliptin) 1 Each Tablet 1 Each PO DAILY 2/5/21 Reported [Albuterol Sulfate] 2.5 MG/3 ML Nebu 2.5 Mg NEB PRN Q2HR PRN 09/26/14 Rx Metformin Hcl Er (Metformin Hcl) 500 Mg Tab.er.24 500 Mg PO BID 11/26/13 Reported Lisinopril 5 Mg Tablet 10 Mg PO DAILY 11/26/13 Reported Spiriva (Tiotropium Deane) 18 Mcg Cap.w.dev 18 Mcg IH DAILY 11/26/13 Reported Impression . IMPRESSION: 1. Acute on chronic hypercapnic and hypoxic respiratory failure secondary to acute on chronic cor pulmonale, component of diastolic congestive heart failure and acute exacerbation of chronic obstructive pulmonary disease. 2. Abnormal chest x-ray revealed increasing bilateral interstitial infiltrates and pleural effusions consistent with heart failure. It is combination of diastolic congestive heart failure and acute on chronic right heart failure. 3. Underlying severe chronic obstructive pulmonary disease with chronic hypercapnia and chronic hypoxic respiratory failure. 4. Underlying obesity, hypoventilation syndrome and cor pulmonale. An obstructive sleep apnea. 5. Chronic kidney disease. 6. Paroxysmal atrial fibrillation. On chronic anticoagulation. 7. Severe protein-calorie malnutrition. Plan . Continue supplemental oxygen to keep oxygen saturations greater than 90%, patient is currently on BiPAP however ABG is compensated . Patient did not like Ventimask. Will initiate 6 L nasal cannula. Keep saturations 90 to 92%. Bronchodilators Follow chest x-ray/ABG as needed Follow nephrology recommendations in regards to LUIS on CKD, avoid nephrotoxic medications, worsening creatinine Follow cardiology's recommendations in regards to diuresis Continue Eliquis Physical therapy/Occupational Therapy DVT/GI prophylaxis Discussed with IRAIS SPANN MD Feb 22, 2022 09:54
[2022-02-22 11:00] VITALS: BP 88/62
--- NOTE | 2022-02-22 11:46 | PDOC ---
[facility] PROGRESS NOTE Date of Service DOS: DATE: 02/22/22 TIME: 11:45 Chief Complaint Chief Complaint Acute hypoxic/hypercapnic respiratory failure requiring BiPAP support Abnormal CXR - possible gram-negative organisms possible aspiration Left 2nd toe ulcer H/o A. Acute electrolyte derangementhyponatremia, likely hypervolemic Acute on chronic respiratory acidosis Lactic acidemia Elevated BNP suggestive of volume overload History of COPD History of diabetes mellitus type 2 History of tobacco misuse History of Present Illness History of Present Illness Mr Pelayo is a 57-year-old male with past medical history of CHF, COPD on 6 L home O2, diabetes mellitus 2 who comes in with shortness of breath for the past several weeks. The past few days has worsened to the point where he needed to come to the ED for further evaluation. Patient is on torsemide at home for his CHF. He is little confused and so dyspneic with NT proBNP greater than 13,000 dyspnea did improve with initial diuresis and increasing supplemental O2 and was placed on BiPAP with improvement and admitted for further care. 02/20: Overnight continued on BiPAP / with a 16rr, 60% FiO2 with ABG 7.2 96/64/88. Seen by podiatry for consideration of left second toe amputation and cardiology for consideration for aortogram with runoff given monophasic findings on left lower extremity arterial Doppler with no clear occlusive disease in the lower extremity. Shortness of breath and cough conversational dyspnea. Is able to talk through his BiPAP. No significant chest discomfort currently. 02/21: Seen on BiPAP 40% this morning. Has conversational dyspnea but otherwise he feels the shortness of breath improving. CR 2.6. No chest pain. Polymicrobial infection in his toe. 02/22/2022 No acute events overnight. Patient seen examined on commode. No dyspnea upon my encounter. Still on BiPAP at 40% and saturating 95%. Maintain saturation between 90 to 92%. Patient's chart, labs, images were reviewed and discussed with RN Consults: Cardiology, pulmonology, podiatry, vascular surgery Vitals/I&O Vitals/I&O: Vital Signs Date Time Temp Pulse Resp B/P (MAP) Pulse Ox O2 Delivery O2 Flow Rate FiO2 02/22/22 11:26 95 BiPAP/CPAP 02/22/22 11:00 97.4 109 24 88/62 (71) 97.4 I & O 3/26/22 3/26/22 3/27/22 15:00 23:00 07:00 Intake Total 300 ml 300 ml Output Total 1100 ml 1000 ml Balance -800 ml -700 ml Physical Exam General: Alert, Oriented X3, Cooperative, mild distress Heart: Other (AFIB RVR) Lungs: Clear, Other Abdomen: Soft, No tenderness Extremities: No cyanosis, Other (2-3+ bilateral LE pitting edema) Skin: Other (scaly BLE skin with skin sloughing. left 4th toe with dry gangrene) Labs Labs: Laboratory Tests Test 02/21/22 17:14 02/21/22 18:05 02/21/22 20:51 02/21/22 22:30 Glucose (Fingerstick) 151 mg/dL (70-99) 162 mg/dL (70-99) Urine Collection Type Unknown Urine Color (Auto) Light orange Urine Turbidity Turbid Urine pH (Auto) 5.5 (<5.0-8.0) Urine Specific [place] 1.013 (1.000-1.030) Urine Protein (Auto) 200 mg/dL (Negative) Urine Glucose (Auto)(UA) 100 mg/dL (Negative) Urine Ketones (Auto) Negative mg/dL (Negative) Urine Blood (Auto) Large (Negative) Urine Nitrite Negative (Negative) Urine Bilirubin (Auto) Negative (Negative) Urine Urobilinogen (Auto) Normal mg/dL (Normal) Urine Leukocyte Esterase (Auto) Small (Negative) Urine RBC Tntc /HPF (0-2) Urine WBC 11-20 /HPF (0-4) Urine Squamous Epithelial Cells Few /LPF Urine Bacteria Few /HPF (0-FEW) Urine Hyaline Casts Few /HPF Urine Granular Casts Few /HPF Urine Random Creatinine 61.0 mg/dL (Not Establ.) Urine Random Total Protein 478.6 mg/dL (Not Establ.) Urine Protein/Creatinine Ratio 7846 mg/g (0-200) Activated Partial Thromboplast Time 38 SEC (24-38) Test 02/22/22 06:05 02/22/22 07:07 02/22/22 07:08 02/22/22 11:39 Activated Partial Thromboplast Time 54 SEC (24-38) Sodium Level 134 mmol/L (136-145) Potassium Level 4.0 mmol/L (3.5-5.1) Chloride Level 95 mmol/L (98-107) Carbon Dioxide Level 33 mmol/L (21-32) Anion Gap 6 (6-14) Blood Urea Nitrogen 35 mg/dL (8-26) Creatinine 2.7 mg/dL (0.7-1.3) Estimated GFR (Cockcroft-Gault) 24.6 Glucose Level 102 mg/dL (70-99) Calcium Level 8.0 mg/dL (8.5-10.1) Creatine Kinase 25 U/L (39-308) Glucose (Fingerstick) 111 mg/dL (70-99) 112 mg/dL (70-99) 155 mg/dL (70-99) Assessment and Plan Assessmemt and Plan Problems Medical Problems: (1) Acute exacerbation of CHF (congestive heart failure) Status: Acute (2) Acute kidney injury Status: Acute (3) Hypoxia Status: Acute Comment Review of Relevant I have reviewed the following items wade (where applicable) has been applied. Medications: Current Medications Medications (Trade) Dose Ordered Sig/Theresa Route PRN Reason Start Time Stop Time Status Last Admin Dose Admin Aspirin (Ecotrin) 81 mg DAILYWBKFT PO 02/21/22 15:00 02/22/22 09:28 Justifications for Admission Other Justification Acute hypoxemic respiratory failure LEEROY LUIS MD Feb 22, 2022 11:46
--- NOTE | 2022-02-22 11:58 | PDOC ---
Provider Note Date of Service: DATE: 02/22/22 TIME: 11:57 Provider Note S: No new events. Objective: GEN.: No apparent distress. Alert and oriented. HEENT: Head is normocephalic, atraumatic NECK: Supple. LUNGS: Clear to auscultation. HEART: irr irr, S1, S2 present. Peripheral pulses intact ABDOMEN: Soft, nontender. Positive bowel sounds. EXTREMITIES: L 4th toe gangrene, venous stasis changes. 1+ BLE NEUROLOGIC: Normal speech, normal tone PSYCHIATRIC: Normal affect, normal mood. CURRENT MEDICATIONS: Hep gtt Diltiazem Atorvastatin ASA DIAGNOSTIC TESTING: Doppler studies reviewed - I suspect based on velocities and reviewed of images that he probably has small vessel disease at the level of the ankle rather than any amenable large vessel disease. Would recommend CO2 angiography. Echo from 07/2021 reviewed. Cath from 11/2021 Reviewed. Labs: Labs reviewed ASSESSMENT: 1. Acute respiratory failure 2. COPD 3. Chronic diastolic HF with acute decompensation 4. Acute kidney injury 5. PAD PLAN: 1. Continue hep gtt 2. Start ASA 81mg daily 3. Continue diltiazem and statin therapy. 4. Await repeat echo. Justifications for Admission Other Justification Acute hypoxemic respiratory failure MARLON CASTILLO MD Feb 22, 2022 11:58
--- NOTE | 2022-02-22 13:28 | PDOC ---
DATE OF SERVICE: DOS: DATE: 02/22/22 TIME: 13:22 SUBJECTIVE ROS Follow-up for acute kidney injury Patient remains on BiPAP for shortness of breath with minimal exertion CVS: no Orthopnea, no CP RESP: + SOB, + MARQUEZ GI: no Nausea, no Vomiting : no Dysuria, no Urgency Lyons in place OBJECTIVE Vital Signs Vital Signs Date Time Temp Pulse Resp B/P (MAP) Pulse Ox O2 Delivery O2 Flow Rate FiO2 02/22/22 11:26 95 BiPAP/CPAP 02/22/22 11:00 97.4 109 24 88/62 (71) 97.4 I & 0 Intake and Output 02/22/22 07:00 Intake Total 600 ml Output Total 2100 ml Balance -1500 ml Intake Oral 300 ml IV Total 300 ml Output Urine Total 2100 ml PHYSICAL EXAM Physical Exam GEN: Awake, Oriented x 3, In min resp distress remains on BiPAP EYES: Vision Unchanged, Conjunctiva Normal EN: No EN Drainage, Mucous Membranes dryish while on BiPAP NECK: no JVD, min JVP, Supple, no Thyromegaly CVS: S1S2, ? soft Murmur, No Gallop, No Rub,+ Edema RESP: few basal Rales, no Rhonchi,no Acc. Muscle Use GI: BS + ve, NO Bruit, Non Tender, Non Distended : no CVA tenderness, no Suprapubic Tenderness DIAGNOSIS/ASSESSMENT Assessment & Plan Acute kidney injury: Precise etiology unclear. Appears to have nephritic appearing urine with nephrotic range proteinuria also. May benefit from a kidney biopsy. Hypotension probably not helping. 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 Have not ordered kidney biopsy at this time due to tenuous respiratory status. ATN associated with gangrenous toe and associated inflammation may be contributing to possible ATN. Some amount of bladder outlet obstruction was also noted. Lyons catheter is currently in place despite the creatinine is now corrected drastically suggestive of possible underlying CKD. Current fluid and E-lyte status does not necessitate emergent need for dialysis but may be needed if difficult to manage fluid status Underlying CKD from diabetic hypertensive nephrosclerosis cannot be ruled out. Baseline Cr appears to be 1.1 since Nov 2021- hospitalized at [facility] Shortness of breath with possible diastolic CHF. Appears to have adequate negative fluid balance over the last few days although weights are not changed much Hypotension patient remains asymptomatic. May need to hold further diuretics. Defer echocardiogram to cardiology Proteinuria: Now noted to be nephrotic range. Possible urinary retention, be overall: Lyons catheter in place currently. Will need voiding trial prior to discharge Microscopic hematuria- UA with Blood and RBC's ? Unsure if related to Lyons trauma. Repeat UA. ATN versus other etiologies may need to be evaluated for History of diastolic CHF-defer diuretics to cardiology Dry gangrene of the left fourth toe. angiography with CO2 as planned and IV fluids were not added. COMMENT/RELEVANT DATA Meds Current Medications Medications (Trade) Dose Ordered Sig/Theresa Start Time Stop Time Status Last Admin Dose Admin Acetaminophen (Tylenol) 650 mg PRN Q4HRS PRN 02/19/22 14:45 Albuterol Sulfate (Ventolin Neb Soln) 2.5 mg PRN Q4HRS PRN 02/19/22 14:45 02/21/22 00:00 2.5 MG Albuterol/ Ipratropium (Duoneb) 3 ml RTQID 02/19/22 16:00 02/22/22 11:25 3 ML Apixaban (Eliquis) 5 mg BID 02/19/22 21:00 02/20/22 11:14 DC 02/19/22 20:42 5 MG Aspirin (Ecotrin) 81 mg DAILYWBKFT 02/21/22 15:00 02/22/22 09:28 81 MG Atorvastatin Calcium (Lipitor) 20 mg QHS 02/19/22 21:00 02/21/22 22:31 20 MG Digoxin (Lanoxin) 500 mcg 1X ONCE 02/20/22 11:30 02/20/22 11:31 DC 02/20/22 11:30 500 MCG Diltiazem HCl (Cardizem 24hr Cd) 240 mg DAILY 02/20/22 09:00 02/22/22 09:28 240 MG Docusate Sodium (Colace) 100 mg DAILY 02/20/22 09:00 02/22/22 09:28 100 MG Furosemide (Lasix) 120 mg DAILY 02/20/22 09:00 02/20/22 14:09 DC 02/20/22 13:10 120 MG Heparin Sodium (Porcine) (Heparin Sodium) 25 UNITS / KG PRN Q6HRS PRN 02/20/22 19:45 02/21/22 23:43 3.3 UNIT Heparin Sodium/ Dextrose 250 ml @ 10 mls/hr CONT PRN 02/20/22 19:45 02/22/22 02:24 21 MLS/HR Info (Anti-Coagulation Monitoring By Pharmacy) 1 each PRN DAILY PRN 02/19/22 15:15 02/21/22 15:01 1 EACH Lactobacillus Rhamnosus (Culturelle) 1 cap BID 02/20/22 09:00 02/22/22 09:28 1 CAP Magnesium Oxide (Magnesium Oxide) 400 mg DAILY 02/20/22 09:00 02/22/22 09:28 400 MG Oxycodone/ Acetaminophen (Percocet 5/325) 1 tab PRN Q4HRS PRN 02/20/22 23:30 02/21/22 22:32 1 TAB Pantoprazole Sodium (Protonix) 40 mg DAILYAC 02/20/22 07:30 02/22/22 09:28 40 MG Piperacillin Sod/ Tazobactam Sod (Zosyn Per Pharmacy) 1 each PRN DAILY PRN 02/19/22 17:15 Piperacillin Sod/ Tazobactam Sod 3.375 gm/Sodium Chloride 50 ml @ 100 mls/hr Q6HRS 02/19/22 18:00 02/22/22 12:45 100 MLS/HR Simethicone (Gas-X) 40 mg Q6HRS 02/19/22 18:00 02/22/22 12:45 40 MG Lab Laboratory Tests Test 02/21/22 17:14 02/21/22 18:05 02/21/22 20:51 02/21/22 22:30 Glucose (Fingerstick) 151 mg/dL (70-99) 162 mg/dL (70-99) Urine Collection Type Unknown Urine Color (Auto) Light orange Urine Turbidity Turbid Urine pH (Auto) 5.5 (<5.0-8.0) Urine Specific [place] 1.013 (1.000-1.030) Urine Protein (Auto) 200 mg/dL (Negative) Urine Glucose (Auto)(UA) 100 mg/dL (Negative) Urine Ketones (Auto) Negative mg/dL (Negative) Urine Blood (Auto) Large (Negative) Urine Nitrite Negative (Negative) Urine Bilirubin (Auto) Negative (Negative) Urine Urobilinogen (Auto) Normal mg/dL (Normal) Urine Leukocyte Esterase (Auto) Small (Negative) Urine RBC Tntc /HPF (0-2) Urine WBC 11-20 /HPF (0-4) Urine Squamous Epithelial Cells Few /LPF Urine Bacteria Few /HPF (0-FEW) Urine Hyaline Casts Few /HPF Urine Granular Casts Few /HPF Urine Random Creatinine 61.0 mg/dL (Not Establ.) Urine Random Total Protein 478.6 mg/dL (Not Establ.) Urine Protein/Creatinine Ratio 7846 mg/g (0-200) Activated Partial Thromboplast Time 38 SEC (24-38) Test 02/22/22 06:05 02/22/22 07:07 02/22/22 07:08 02/22/22 11:39 Activated Partial Thromboplast Time 54 SEC (24-38) Sodium Level 134 mmol/L (136-145) Potassium Level 4.0 mmol/L (3.5-5.1) Chloride Level 95 mmol/L (98-107) Carbon Dioxide Level 33 mmol/L (21-32) Anion Gap 6 (6-14) Blood Urea Nitrogen 35 mg/dL (8-26) Creatinine 2.7 mg/dL (0.7-1.3) Estimated GFR (Cockcroft-Gault) 24.6 Glucose Level 102 mg/dL (70-99) Calcium Level 8.0 mg/dL (8.5-10.1) Creatine Kinase 25 U/L (39-308) Glucose (Fingerstick) 111 mg/dL (70-99) 112 mg/dL (70-99) 155 mg/dL (70-99) Results All relevant outside records, renal labs, imaging studies, telemetry/EKG's were reviewed. Justicifation of Admission Dx: Justifications for Admission: Justification of Admission Dx: Yes Respiratory Failure: Severe Resp Distress JESSICA NUGENT MD Feb 22, 2022 13:28
[2022-02-22] MEDS: ANTI-COAG MONITOR BY PHARMACY. MC PRN ×3 (14:54→16:53)
[2022-02-22 15:00] VITALS: BP 94/63
[2022-02-22 15:34] LABS: HEMATOCRIT 35.5 % (39.0-53.0); HEMOGLOBIN 11.4 g/dL (13.0-17.5); RED BLOOD COUNT 3.6 x10^6/uL (4.30-5.70); RED CELL DISTRIBUTION WIDTH 15.7 % (11.5-14.5); WHITE BLOOD COUNT 5.6 x10^3/uL (4.0-11.0)
[2022-02-22 19:23] VITALS: BP 103/67
[2022-02-22] MEDS: oxyCODONE/APAP 5/325 1 TAB TABLET PO PRN (22:04)
[2022-02-22] MEDS: ATORVASTATIN CALCIUM 20 MG TABLET PO SCH (22:04)
[2022-02-22 23:00] VITALS: BP 106/66
[2022-02-23] VITALS (18 sets, daily range): BP systolic 86–122; BP diastolic 61–81
[2022-02-23] MEDS: PIPERACILLIN/TAZOBACTAM 3.375 GM in IV NORMAL SALINE 50ML 50 ML IV SCH ×5 (00:38→23:15)
[2022-02-23] MEDS: HEPARIN 25,000UTS/250ML PREMIX 250 ML IV PRN ×3 (02:13→23:23)
[2022-02-23] MEDS: SIMETHICONE 80 MG TAB.CHEW PO SCH ×5 (05:47→23:15)
[2022-02-23] MEDS: PANTOPRAZOLE 40 MG TABLET.DR. PO SCH (05:47)
[2022-02-23] MEDS: IPRATRPIUM/ALBUTEROL 0.5/2.5MG 3 ML NEBU. NEB SCH ×4 (07:32→19:36)
[2022-02-23] MEDS: MAGNESIUM OXIDE 400 MG TABLET PO SCH (09:18)
[2022-02-23] MEDS: ASPIRIN ENTERIC COATED 81 MG TABLET.DR. PO SCH (09:18)
[2022-02-23] MEDS: LACTOBACILLUS RHAMNOSUS GG 1 CAPSULE. PO SCH ×2 (09:18→20:54)
[2022-02-23] MEDS: DOCUSATE SODIUM 100 MG CAPSULE. PO SCH (09:18)
[2022-02-23 09:23] LABS: CALCIUM 8.3 mg/dL (8.5-10.1); CREATININE 2.8 mg/dL (0.7-1.3); GFR 23.6; POTASSIUM 3.9 mmol/L (3.5-5.1)
--- NOTE | 2022-02-23 09:46 | NUR ---
Heparin drip readjusted to 28cc/hr from 27cc/hr. APtt 75
--- NOTE | 2022-02-23 10:01 | PDOC ---
Provider Note Date of Service: DATE: 02/23/22 TIME: 09:58 Provider Note Vascular surgery Awake and alert on BiPAP Bilateral lower extremities are warm with swelling. The left fourth toe has dry gangrene of the toe, there is no erythema, no drainage and no gangrene or infection within the foot. There is no other areas of tissue breakdown Right foot with no areas of tissue breakdown A/P 57-year-old male with multiple medical problems including severe COPD and peripheral arterial disease. He is required high levels of oxygen here in the hospital. He also has developed renal insufficiency his creatinine has elevated to 2.8 today. 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 He will eventually need an angiogram of the left lower extremity with intervention and fourth toe amputation. This was scheduled for tomorrow however his creatinine continues to elevate. There is no urgency to the angiogram or toe amputation and we will cancel tomorrow. He is being worked up with nephrology and cardiology and may undergo a heart catheterization today. We will plan the left leg angiogram with fourth toe amputation under anesthesia when his renal function stabilizes. Justifications for Admission Other Justification Acute hypoxemic respiratory failure NAYELI WADE MD Feb 23, 2022 10:01
--- NOTE | 2022-02-23 11:30 | PDOC ---
DATE OF SERVICE DATE: 02/23/22 TIME: 11:27 SUBJECTIVE ROS No acute concerns, in the recliner with BiPAP OBJECTIVE Vital Signs Vital Signs Date Time Temp Pulse Resp B/P (MAP) Pulse Ox O2 Delivery O2 Flow Rate FiO2 02/23/22 11:23 BiPAP/CPAP 02/23/22 10:56 97.4 81 18 109/61 (77) 94 97.4 I & 0 Intake and Output 02/23/22 07:00 Intake Total 1083 ml Output Total 2225 ml Balance -1142 ml Intake Oral 760 ml IV Total 323 ml Output Urine Total 2225 ml PHYSICAL EXAM Physical Exam General: Alert, Oriented X3, Mild distress, waering Bipap HEENT: Atraumatic, PERRLA, On Bipap Neck Supple Lungs: Decreased at bases ant, Heart: irregularly irregular, Abdomen: Normal bowel sounds, Obese Extremities: edema +, Changes of CVI +; left foot there is black dry gangrene of the fourth toe, no surrounding erythema or drainage Skin: No rash Neuro: Grossly normal , moving al extrem Psych/Mental Status: cooperative Lyons +, No CVA or SP tenderness DIAGNOSIS/ASSESSMENT Assessment & Plan LUIS Cardiorenal/ ATN / Renal US unremarkable .Non Oliguric, Creat trendiing up Supportive care , maintain fluid balance., avoid overdiuresis Avoid Nephrotoxins Baseline Cr 0.7-0.9; 1.1 since Nov 2021- hospitalized at [facility] Microscopic hematuria- UA with Blood and RBC's repeat same - - Lyons sample UA in May 2021 Unremarkable Proteunuria- nephrotic range- Lyons sample , Uncontrolled DM history . Can consider Bx . Pt agreeable. Dw Pt may or may not change the management, discussed risks . With Severe COPD not sure can lie prone for Bx. He would like to go ahead with Bx Currently on Heparin and ASA. Both needs to be held . Defer to Cardiolology . 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 Awaiting Rt heart cath . Dry gangrene of the left fourth toe. Will need Amputation, Non Urgent . Discussed with Dr Martinez, planning to hold for now 2/2 LUIS, Non urgent History of COPD History of diabetes mellitus type 2 History of tobacco misuse COMMENT/RELEVANT DATA Meds Current Medications Medications (Trade) Dose Ordered Sig/Theresa Start Time Stop Time Status Last Admin Dose Admin Acetaminophen (Tylenol) 650 mg PRN Q4HRS PRN 02/19/22 14:45 Albuterol Sulfate (Ventolin Neb Soln) 2.5 mg PRN Q4HRS PRN 02/19/22 14:45 02/21/22 00:00 2.5 MG Albuterol/ Ipratropium (Duoneb) 3 ml RTQID 02/19/22 16:00 02/23/22 11:23 3 ML Apixaban (Eliquis) 5 mg BID 02/19/22 21:00 02/20/22 11:14 DC 02/19/22 20:42 5 MG Aspirin (Ecotrin) 81 mg DAILYWBKFT 02/21/22 15:00 02/23/22 09:18 81 MG Atorvastatin Calcium (Lipitor) 20 mg QHS 02/19/22 21:00 02/22/22 22:04 20 MG Digoxin (Lanoxin) 500 mcg 1X ONCE 02/20/22 11:30 02/20/22 11:31 DC 02/20/22 11:30 500 MCG Diltiazem HCl (Cardizem 24hr Cd) 240 mg DAILY 02/20/22 09:00 02/22/22 09:28 240 MG Docusate Sodium (Colace) 100 mg DAILY 02/20/22 09:00 02/23/22 09:18 100 MG Furosemide (Lasix) 120 mg DAILY 02/20/22 09:00 02/20/22 14:09 DC 02/20/22 13:10 120 MG Heparin Sodium (Porcine) (Heparin Sodium) 25 UNITS / KG PRN Q6HRS PRN 02/20/22 19:45 02/21/22 23:43 3.3 UNIT Heparin Sodium/ Dextrose 250 ml @ 10 mls/hr CONT PRN 02/20/22 19:45 02/23/22 02:13 27 MLS/HR Info (Anti-Coagulation Monitoring By Pharmacy) 1 each PRN DAILY PRN 02/19/22 15:15 02/22/22 16:53 1 EACH Lactobacillus Rhamnosus (Culturelle) 1 cap BID 02/20/22 09:00 02/23/22 09:18 1 CAP Magnesium Oxide (Magnesium Oxide) 400 mg DAILY 02/20/22 09:00 02/23/22 09:18 400 MG Oxycodone/ Acetaminophen (Percocet 5/325) 1 tab PRN Q4HRS PRN 02/20/22 23:30 02/22/22 22:04 1 TAB Pantoprazole Sodium (Protonix) 40 mg DAILYAC 02/20/22 07:30 02/23/22 05:47 40 MG Piperacillin Sod/ Tazobactam Sod (Zosyn Per Pharmacy) 1 each PRN DAILY PRN 02/19/22 17:15 Piperacillin Sod/ Tazobactam Sod 3.375 gm/Sodium Chloride 50 ml @ 100 mls/hr Q6HRS 02/19/22 18:00 02/23/22 05:47 100 MLS/HR Simethicone (Gas-X) 40 mg Q6HRS 02/19/22 18:00 02/23/22 05:47 40 MG Lab Laboratory Tests Test 02/22/22 11:39 02/22/22 15:20 02/22/22 16:36 02/22/22 20:37 Glucose (Fingerstick) 155 mg/dL (70-99) 125 mg/dL (70-99) 147 mg/dL (70-99) White Blood Count 5.6 x10^3/uL (4.0-11.0) Red Blood Count 3.60 x10^6/uL (4.30-5.70) Hemoglobin 11.4 g/dL (13.0-17.5) Hematocrit 35.5 % (39.0-53.0) Mean Corpuscular Volume 99 fL (79-100) Mean Corpuscular Hemoglobin 32 pg (25-35) Mean Corpuscular Hemoglobin Concent 32 g/dL (31-37) Red Cell Distribution Width 15.7 % (11.5-14.5) Platelet Count 168 x10^3/uL (140-400) Activated Partial Thromboplast Time 45 SEC (24-38) Test 02/22/22 22:35 02/23/22 07:19 02/23/22 08:50 Activated Partial Thromboplast Time 52 SEC (24-38) 75 SEC (24-38) Glucose (Fingerstick) 118 mg/dL (70-99) Sodium Level 135 mmol/L (136-145) Potassium Level 3.9 mmol/L (3.5-5.1) Chloride Level 95 mmol/L (98-107) Carbon Dioxide Level 35 mmol/L (21-32) Anion Gap 5 (6-14) Blood Urea Nitrogen 34 mg/dL (8-26) Creatinine 2.8 mg/dL (0.7-1.3) Estimated GFR (Cockcroft-Gault) 23.6 Glucose Level 127 mg/dL (70-99) Calcium Level 8.3 mg/dL (8.5-10.1) Creatine Kinase 18 U/L (39-308) Results All relevant outside records, renal labs, imaging studies, telemetry/EKG's were reviewed. Justicifation of Admission Dx: Justifications for Admission: Justification of Admission Dx: Yes Respiratory Failure: Severe Resp Distress BLAS ORR MD Feb 23, 2022 11:30
--- NOTE | 2022-02-23 11:42 | PDOC ---
PULMONARY PROGRESS NOTES DATE: 02/23/22 TIME: 11:41 Subjective Patient is up to the chair today, currently on BiPAP at 40%, denies shortness of breath, chest pain or cough this morning, afebrile and no overnight concerns from nursing. Vitals Vital Signs Date Time Temp Pulse Resp B/P (MAP) Pulse Ox O2 Delivery O2 Flow Rate FiO2 02/23/22 11:23 BiPAP/CPAP 02/23/22 10:56 97.4 81 18 109/61 (77) 94 97.4 ROS: No Nausea, No Chest Pain, No Abdominal Pain, No Increase Cough General: Alert, Oriented X4, No acute distress HEENT: Other Lungs: Clear, Other Cardiovascular: S1, S2 Abdomen: Soft, Non-tender Extremities: Other Skin: Warm, Dry Labs Laboratory Tests Test 02/21/22 17:14 02/21/22 18:05 02/21/22 20:51 02/21/22 22:30 Glucose (Fingerstick) 151 mg/dL (70-99) 162 mg/dL (70-99) Urine Collection Type Unknown Urine Color (Auto) Light orange Urine Turbidity Turbid Urine pH (Auto) 5.5 (<5.0-8.0) Urine Specific [place] 1.013 (1.000-1.030) Urine Protein (Auto) 200 mg/dL (Negative) Urine Glucose (Auto)(UA) 100 mg/dL (Negative) Urine Ketones (Auto) Negative mg/dL (Negative) Urine Blood (Auto) Large (Negative) Urine Nitrite Negative (Negative) Urine Bilirubin (Auto) Negative (Negative) Urine Urobilinogen (Auto) Normal mg/dL (Normal) Urine Leukocyte Esterase (Auto) Small (Negative) Urine RBC Tntc /HPF (0-2) Urine WBC 11-20 /HPF (0-4) Urine Squamous Epithelial Cells Few /LPF Urine Bacteria Few /HPF (0-FEW) Urine Hyaline Casts Few /HPF Urine Granular Casts Few /HPF Urine Random Creatinine 61.0 mg/dL (Not Establ.) Urine Random Total Protein 478.6 mg/dL (Not Establ.) Urine Protein/Creatinine Ratio 7846 mg/g (0-200) Activated Partial Thromboplast Time 38 SEC (24-38) Test 02/22/22 06:05 02/22/22 07:07 02/22/22 07:08 02/22/22 11:39 Activated Partial Thromboplast Time 54 SEC (24-38) Sodium Level 134 mmol/L (136-145) Potassium Level 4.0 mmol/L (3.5-5.1) Chloride Level 95 mmol/L (98-107) Carbon Dioxide Level 33 mmol/L (21-32) Anion Gap 6 (6-14) Blood Urea Nitrogen 35 mg/dL (8-26) Creatinine 2.7 mg/dL (0.7-1.3) Estimated GFR (Cockcroft-Gault) 24.6 Glucose Level 102 mg/dL (70-99) Calcium Level 8.0 mg/dL (8.5-10.1) Creatine Kinase 25 U/L (39-308) Glucose (Fingerstick) 111 mg/dL (70-99) 112 mg/dL (70-99) 155 mg/dL (70-99) Test 02/22/22 15:20 02/22/22 16:36 02/22/22 20:37 02/22/22 22:35 White Blood Count 5.6 x10^3/uL (4.0-11.0) Red Blood Count 3.60 x10^6/uL (4.30-5.70) Hemoglobin 11.4 g/dL (13.0-17.5) Hematocrit 35.5 % (39.0-53.0) Mean Corpuscular Volume 99 fL (79-100) Mean Corpuscular Hemoglobin 32 pg (25-35) Mean Corpuscular Hemoglobin Concent 32 g/dL (31-37) Red Cell Distribution Width 15.7 % (11.5-14.5) Platelet Count 168 x10^3/uL (140-400) Activated Partial Thromboplast Time 45 SEC (24-38) 52 SEC (24-38) Glucose (Fingerstick) 125 mg/dL (70-99) 147 mg/dL (70-99) Test 02/23/22 07:19 02/23/22 08:50 02/23/22 11:35 Glucose (Fingerstick) 118 mg/dL (70-99) 140 mg/dL (70-99) Activated Partial Thromboplast Time 75 SEC (24-38) Sodium Level 135 mmol/L (136-145) Potassium Level 3.9 mmol/L (3.5-5.1) Chloride Level 95 mmol/L (98-107) Carbon Dioxide Level 35 mmol/L (21-32) Anion Gap 5 (6-14) Blood Urea Nitrogen 34 mg/dL (8-26) Creatinine 2.8 mg/dL (0.7-1.3) Estimated GFR (Cockcroft-Gault) 23.6 Glucose Level 127 mg/dL (70-99) Calcium Level 8.3 mg/dL (8.5-10.1) Creatine Kinase 18 U/L (39-308) Laboratory Tests Test 02/22/22 15:20 02/22/22 16:36 02/22/22 20:37 02/22/22 22:35 White Blood Count 5.6 x10^3/uL (4.0-11.0) Red Blood Count 3.60 x10^6/uL (4.30-5.70) Hemoglobin 11.4 g/dL (13.0-17.5) Hematocrit 35.5 % (39.0-53.0) Mean Corpuscular Volume 99 fL (79-100) Mean Corpuscular Hemoglobin 32 pg (25-35) Mean Corpuscular Hemoglobin Concent 32 g/dL (31-37) Red Cell Distribution Width 15.7 % (11.5-14.5) Platelet Count 168 x10^3/uL (140-400) Activated Partial Thromboplast Time 45 SEC (24-38) 52 SEC (24-38) Glucose (Fingerstick) 125 mg/dL (70-99) 147 mg/dL (70-99) Test 02/23/22 07:19 02/23/22 08:50 02/23/22 11:35 Glucose (Fingerstick) 118 mg/dL (70-99) 140 mg/dL (70-99) Activated Partial Thromboplast Time 75 SEC (24-38) Sodium Level 135 mmol/L (136-145) Potassium Level 3.9 mmol/L (3.5-5.1) Chloride Level 95 mmol/L (98-107) Carbon Dioxide Level 35 mmol/L (21-32) Anion Gap 5 (6-14) Blood Urea Nitrogen 34 mg/dL (8-26) Creatinine 2.8 mg/dL (0.7-1.3) Estimated GFR (Cockcroft-Gault) 23.6 Glucose Level 127 mg/dL (70-99) Calcium Level 8.3 mg/dL (8.5-10.1) Creatine Kinase 18 U/L (39-308) Medications Active Scripts Medications Dose Route/Sig Max Daily Dose Days Date Category Simethicone 80 Mg Tab.chew 0.5 Tab PO Q6HRS 10 12/19/21 Rx Insulin Lispro Kwikpen U-100 (Insulin Lispro) 100 Unit/1 Ml Insuln.pen 0-9 Unit SQ TIDACHC 30 12/19/21 Rx Potassium Chloride (Potassium Chloride) 20 Meq Tablet.er 20 Meq PO DAILYWBKFT 12/19/21 Rx Pantoprazole Sodium (Pantoprazole Sodium) 40 Mg Tablet.dr 40 Mg PO DAILYAC 12/19/21 Rx Colace (Docusate Sodium) 100 Mg Capsule 100 Mg PO DAILY 30 12/19/21 Rx Magnesium Oxide 400 Mg Tablet 400 Mg PO DAILY 30 12/19/21 Rx Acetaminophen 325 Mg Tablet 650 Mg PO PRN Q4HRS PRN 12/19/21 Rx Atorvastatin Calcium 20 Mg Tablet 20 Mg PO QHS 12/19/21 Rx Furosemide 40 Mg Tablet 3 Tab PO DAILY 12/03/21 Reported Eliquis (Apixaban) 5 Mg Tablet 5 Mg PO BID 30 09/30/21 Rx Diltiazem 24Hr Cd (Diltiazem HCl) 240 Mg Cap.er.24h 240 Mg PO DAILY 30 09/30/21 Rx Advair 500-50 Diskus (Fluticasone/Salmeterol) 1 Each Disk.w.dev 1 Puff INH BID 09/24/21 Reported Albuterol Sulfate Neb Soln (Albuterol Sulfate) 2.5 Mg/3 Ml Vial.neb 2.5 Mg NEB PRN Q4-6HRS PRN 06/12/21 Reported Glyxambi 25 mg-5 mg Tablet (Empagliflozin/Linagliptin) 1 Each Tablet 1 Each PO DAILY 01/03/21 Reported [Albuterol Sulfate] 2.5 MG/3 ML Nebu 2.5 Mg NEB PRN Q2HR PRN 09/26/14 Rx Metformin Hcl Er (Metformin Hcl) 500 Mg Tab.er.24 500 Mg PO BID 11/26/13 Reported Lisinopril 5 Mg Tablet 10 Mg PO DAILY 11/26/13 Reported Spiriva (Tiotropium [place]asc[place]) 18 Mcg Cap.w.dev 18 Mcg IH DAILY 11/26/13 Reported Impression . IMPRESSION: 1. Acute on chronic hypercapnic and hypoxic respiratory failure secondary to acute on chronic cor pulmonale, component of diastolic congestive heart failure and acute exacerbation of chronic obstructive pulmonary disease. 2. Abnormal chest x-ray revealed increasing bilateral interstitial infiltrates and pleural effusions consistent with heart failure. It is combination of diastolic congestive heart failure and acute on chronic right heart failure. 3. Underlying severe chronic obstructive pulmonary disease with chronic hypercapnia and chronic hypoxic respiratory failure. 4. Underlying obesity, hypoventilation syndrome and cor pulmonale. An obstructive sleep apnea. 5. Chronic kidney disease. Recent acute decompensation. 6. Paroxysmal atrial fibrillation. On chronic anticoagulation. 7. Severe protein-calorie malnutrition. Plan . Continue supplemental oxygen to keep oxygen saturations greater than 90%, patient is currently on BiPAP however ABG is compensated . Patient did not like Ventimask. Keep saturations 90 to 92%. Bronchodilators Follow chest x-ray today. Follow nephrology recommendations in regards to LUIS on CKD, avoid nephrotoxic medications, worsening creatinine. Avoid further Lasix. Continue Eliquis Physical therapy/Occupational Therapy DVT/GI prophylaxis Discussed with IRAIS SPANN MD Feb 23, 2022 11:42
--- NOTE | 2022-02-23 11:57 | PDOC ---
[facility] PROGRESS NOTE Date of Service DOS: DATE: 02/23/22 TIME: 11:56 Chief Complaint Chief Complaint Acute hypoxic/hypercapnic respiratory failure requiring BiPAP support Abnormal CXR - possible gram-negative organisms possible aspiration Left 2nd toe ulcer H/o A. Acute electrolyte derangementhyponatremia, likely hypervolemic Acute on chronic respiratory acidosis Lactic acidemia Elevated BNP suggestive of volume overload History of COPD History of diabetes mellitus type 2 History of tobacco misuse History of Present Illness History of Present Illness Mr Pelayo is a 57-year-old male with past medical history of CHF, COPD on 6 L home O2, diabetes mellitus 2 who comes in with shortness of breath for the past several weeks. The past few days has worsened to the point where he needed to come to the ED for further evaluation. Patient is on torsemide at home for his CHF. He is little confused and so dyspneic with NT proBNP greater than 13,000 dyspnea did improve with initial diuresis and increasing supplemental O2 and was placed on BiPAP with improvement and admitted for further care. 02/20: Overnight continued on BiPAP / with a 16rr, 60% FiO2 with ABG 7.2 96/64/88. Seen by podiatry for consideration of left second toe amputation and cardiology for consideration for aortogram with runoff given monophasic findings on left lower extremity arterial Doppler with no clear occlusive disease in the lower extremity. Shortness of breath and cough conversational dyspnea. Is able to talk through his BiPAP. No significant chest discomfort currently. 02/21: Seen on BiPAP 40% this morning. Has conversational dyspnea but otherwise he feels the shortness of breath improving. CR 2.6. No chest pain. Polymicrobial infection in his toe. 02/22/2022 No acute events overnight. Patient seen examined on commode. No dyspnea upon my encounter. Still on BiPAP at 40% and saturating 95%. Maintain saturation between 90 to 92%. Patient's chart, labs, images were reviewed and discussed with RN Consults: Cardiology, pulmonology, podiatry, vascular surgery 02/23 Patient evaluated examined at bedside. Up in chair on BiPAP. Said breathing does feel little bit improved but still pretty bad. Creatinine still elevated. Possible heart cath today. Discussed with bedside RN. Vitals/I&O Vitals/I&O: Vital Signs Date Time Temp Pulse Resp B/P (MAP) Pulse Ox O2 Delivery O2 Flow Rate FiO2 02/23/22 11:23 BiPAP/CPAP 02/23/22 10:56 97.4 81 18 109/61 (77) 94 97.4 I & O 02/22/22 02/22/22 02/23/22 15:00 23:00 07:00 Intake Total 400 ml 360 ml 323 ml Output Total 850 ml 575 ml 800 ml Balance -450 ml -215 ml -477 ml Physical Exam General: Alert, Oriented X3, Cooperative, mild distress Heart: Other (AFIB RVR) Lungs: Clear, Other Abdomen: Soft, No tenderness Extremities: No cyanosis, Other (2-3+ bilateral LE pitting edema) Skin: Other (scaly BLE skin with skin sloughing. left 4th toe with dry gangrene) Labs Labs: Laboratory Tests Test 02/22/22 15:20 02/22/22 16:36 02/22/22 20:37 02/22/22 22:35 White Blood Count 5.6 x10^3/uL (4.0-11.0) Red Blood Count 3.60 x10^6/uL (4.30-5.70) Hemoglobin 11.4 g/dL (13.0-17.5) Hematocrit 35.5 % (39.0-53.0) Mean Corpuscular Volume 99 fL (79-100) Mean Corpuscular Hemoglobin 32 pg (25-35) Mean Corpuscular Hemoglobin Concent 32 g/dL (31-37) Red Cell Distribution Width 15.7 % (11.5-14.5) Platelet Count 168 x10^3/uL (140-400) Activated Partial Thromboplast Time 45 SEC (24-38) 52 SEC (24-38) Glucose (Fingerstick) 125 mg/dL (70-99) 147 mg/dL (70-99) Test 02/23/22 07:19 02/23/22 08:50 02/23/22 11:35 Glucose (Fingerstick) 118 mg/dL (70-99) 140 mg/dL (70-99) Activated Partial Thromboplast Time 75 SEC (24-38) Sodium Level 135 mmol/L (136-145) Potassium Level 3.9 mmol/L (3.5-5.1) Chloride Level 95 mmol/L (98-107) Carbon Dioxide Level 35 mmol/L (21-32) Anion Gap 5 (6-14) Blood Urea Nitrogen 34 mg/dL (8-26) Creatinine 2.8 mg/dL (0.7-1.3) Estimated GFR (Cockcroft-Gault) 23.6 Glucose Level 127 mg/dL (70-99) Calcium Level 8.3 mg/dL (8.5-10.1) Creatine Kinase 18 U/L (39-308) Assessment and Plan Assessmemt and Plan Problems Medical Problems: (1) Acute exacerbation of CHF (congestive heart failure) Status: Acute (2) Acute kidney injury Status: Acute (3) Hypoxia Status: Acute Comment Review of Relevant I have reviewed the following items waed (where applicable) has been applied. Justifications for Admission Other Justification Acute hypoxemic respiratory failure ABY TINOCO MD Feb 23, 2022 11:57
--- NOTE | 2022-02-23 12:06 | PDOC ---
PROGRESS NOTES Date of Service DATE: 02/23/22 TIME: 12:01 Subjective Subjective Patient denies any overnight event or any constitutional symptoms. Patient denies pain to the left foot due to neuropathy. Patient has been tolerating Betadine paint to the digit, twice daily. Objective Objective Vital Signs Date Time Temp Pulse Resp B/P (MAP) Pulse Ox O2 Delivery O2 Flow Rate FiO2 02/23/22 11:23 BiPAP/CPAP 02/23/22 10:56 97.4 81 18 109/61 (77) 94 97.4 Intake and Output0 02/23/22 07:00 Intake Total 1083 ml Output Total 2225 ml Balance -1142 ml Intake Oral 760 ml IV Total 323 ml Output Urine Total 2225 ml Physical Exam Physical Exam General: Pleasant without apparent distress, AOx3 Left lower extremity focused Dermatology: -Relatively dry stable gangrenous/necrotic changes to the left fourth digit to the level of the proximal fourth phalangeal shaft. There is no significant purulent drainage, fluctuance, proximal streaking to the forefoot Vascular: -DP is palpable but weak, nonpalpable PT due to baseline nonpitting edema -Foot is warm to touch with CFT less than 3 seconds x 5 -Erythematous patch to the dorsal fourth MTPJ is blanchable Neurology: -Light touch sensation diminished to the level of ankle MSK: -[-] TTP at fourth digit -Able to move digits -Muscle strength 5 out of 5 across ankle joint -Calf is soft and nontender Assessment Assessment Problems Medical Problems: (1) Acute exacerbation of CHF (congestive heart failure) Status: Acute (2) Acute kidney injury Status: Acute (3) Hypoxia Status: Acute Plan Plan of Care Type 2 diabetes complicated with peripheral neuropathy, PAD Relatively stable and dry gangrene to the fourth digit, left Full-thickness ulcer with exposed flexor tendon at the plantar fourth digit, left -x-ray was negative for osteomyelitis and soft tissue emphysema -Arterial duplex Doppler remarked monophasic but three-vessel runoff to the left lower extremity -The fourth digit was painted with Betadine -Twice daily dressing change by RN: [place] the fourth digit with Betadine especially in the interdigital spaces without any constrictive dressing -No leukocytosis -Antibiotics: Currently on Zosyn - Wound cx [02/19]: Pseudomonas, enterococci, MRSA - MRSA sensitive to daptomycin and vancomycin. Needs renally dosed -Weightbearing restriction: Minimal heel touchdown weightbearing to left lower extremity -Nurse communication: -Place Prevalon boots to bilateral lower extremity while in bed Dispo: Arterial Doppler ultrasound indicates adequate healing for fourth MTPJ disarticulation. The limited skin envelope can be challenging with direct skin closure. Awaiting medical optimization and will plan for left fourth digit MTPJ disarticulation as an inpatient. Please page me when patient is medically stable for anesthesia and I will schedule for surgery. Comment Review of Relevant I have reviewed the following items wade (where applicable) has been applied. Labs Laboratory Tests Test 02/21/22 17:14 02/21/22 18:05 02/21/22 20:51 02/21/22 22:30 Glucose (Fingerstick) 151 mg/dL (70-99) 162 mg/dL (70-99) Urine Collection Type Unknown Urine Color (Auto) Light orange Urine Turbidity Turbid Urine pH (Auto) 5.5 (<5.0-8.0) Urine Specific [place] 1.013 (1.000-1.030) Urine Protein (Auto) 200 mg/dL (Negative) Urine Glucose (Auto)(UA) 100 mg/dL (Negative) Urine Ketones (Auto) Negative mg/dL (Negative) Urine Blood (Auto) Large (Negative) Urine Nitrite Negative (Negative) Urine Bilirubin (Auto) Negative (Negative) Urine Urobilinogen (Auto) Normal mg/dL (Normal) Urine Leukocyte Esterase (Auto) Small (Negative) Urine RBC Tntc /HPF (0-2) Urine WBC 11-20 /HPF (0-4) Urine Squamous Epithelial Cells Few /LPF Urine Bacteria Few /HPF (0-FEW) Urine Hyaline Casts Few /HPF Urine Granular Casts Few /HPF Urine Random Creatinine 61.0 mg/dL (Not Establ.) Urine Random Total Protein 478.6 mg/dL (Not Establ.) Urine Protein/Creatinine Ratio 7846 mg/g (0-200) Activated Partial Thromboplast Time 38 SEC (24-38) Test 02/22/22 06:05 02/22/22 07:07 02/22/22 07:08 02/22/22 11:39 Activated Partial Thromboplast Time 54 SEC (24-38) Sodium Level 134 mmol/L (136-145) Potassium Level 4.0 mmol/L (3.5-5.1) Chloride Level 95 mmol/L (98-107) Carbon Dioxide Level 33 mmol/L (21-32) Anion Gap 6 (6-14) Blood Urea Nitrogen 35 mg/dL (8-26) Creatinine 2.7 mg/dL (0.7-1.3) Estimated GFR (Cockcroft-Gault) 24.6 Glucose Level 102 mg/dL (70-99) Calcium Level 8.0 mg/dL (8.5-10.1) Creatine Kinase 25 U/L (39-308) Glucose (Fingerstick) 111 mg/dL (70-99) 112 mg/dL (70-99) 155 mg/dL (70-99) Test 02/22/22 15:20 02/22/22 16:36 02/22/22 20:37 02/22/22 22:35 White Blood Count 5.6 x10^3/uL (4.0-11.0) Red Blood Count 3.60 x10^6/uL (4.30-5.70) Hemoglobin 11.4 g/dL (13.0-17.5) Hematocrit 35.5 % (39.0-53.0) Mean Corpuscular Volume 99 fL (79-100) Mean Corpuscular Hemoglobin 32 pg (25-35) Mean Corpuscular Hemoglobin Concent 32 g/dL (31-37) Red Cell Distribution Width 15.7 % (11.5-14.5) Platelet Count 168 x10^3/uL (140-400) Activated Partial Thromboplast Time 45 SEC (24-38) 52 SEC (24-38) Glucose (Fingerstick) 125 mg/dL (70-99) 147 mg/dL (70-99) Test 02/23/22 07:19 02/23/22 08:50 02/23/22 11:35 Glucose (Fingerstick) 118 mg/dL (70-99) 140 mg/dL (70-99) Activated Partial Thromboplast Time 75 SEC (24-38) Sodium Level 135 mmol/L (136-145) Potassium Level 3.9 mmol/L (3.5-5.1) Chloride Level 95 mmol/L (98-107) Carbon Dioxide Level 35 mmol/L (21-32) Anion Gap 5 (6-14) Blood Urea Nitrogen 34 mg/dL (8-26) Creatinine 2.8 mg/dL (0.7-1.3) Estimated GFR (Cockcroft-Gault) 23.6 Glucose Level 127 mg/dL (70-99) Calcium Level 8.3 mg/dL (8.5-10.1) Creatine Kinase 18 U/L (39-308) Laboratory Tests Test 02/22/22 15:20 02/22/22 16:36 02/22/22 20:37 02/22/22 22:35 White Blood Count 5.6 x10^3/uL (4.0-11.0) Red Blood Count 3.60 x10^6/uL (4.30-5.70) Hemoglobin 11.4 g/dL (13.0-17.5) Hematocrit 35.5 % (39.0-53.0) Mean Corpuscular Volume 99 fL (79-100) Mean Corpuscular Hemoglobin 32 pg (25-35) Mean Corpuscular Hemoglobin Concent 32 g/dL (31-37) Red Cell Distribution Width 15.7 % (11.5-14.5) Platelet Count 168 x10^3/uL (140-400) Activated Partial Thromboplast Time 45 SEC (24-38) 52 SEC (24-38) Glucose (Fingerstick) 125 mg/dL (70-99) 147 mg/dL (70-99) Test 02/23/22 07:19 02/23/22 08:50 02/23/22 11:35 Glucose (Fingerstick) 118 mg/dL (70-99) 140 mg/dL (70-99) Activated Partial Thromboplast Time 75 SEC (24-38) Sodium Level 135 mmol/L (136-145) Potassium Level 3.9 mmol/L (3.5-5.1) Chloride Level 95 mmol/L (98-107) Carbon Dioxide Level 35 mmol/L (21-32) Anion Gap 5 (6-14) Blood Urea Nitrogen 34 mg/dL (8-26) Creatinine 2.8 mg/dL (0.7-1.3) Estimated GFR (Cockcroft-Gault) 23.6 Glucose Level 127 mg/dL (70-99) Calcium Level 8.3 mg/dL (8.5-10.1) Creatine Kinase 18 U/L (39-308) Microbiology 02/21/22 Urine Culture - Final, Complete 02/19/22 Gram Stain - Final, Resulted 02/19/22 Aerobic and Anaerobic Culture - Preliminary, Resulted Pseudomonas Aeruginosa Enterococcus Faecalis Staphylococcus Aureus (Mrsa) 02/19/22 Blood Culture - Preliminary, Resulted NO GROWTH AFTER 3 DAYS Medications Current Medications Albuterol/ Ipratropium (Duoneb) 9 ml 1X ONCE NEB ; Start 02/19/22 at 11:30; Stop 02/19/22 at 11:31; Status DC Furosemide (Lasix) 60 mg ONCE ONCE IVP Last administered on 02/19/22at 11:45; Start 02/19/22 at 11:45; Stop 02/19/22 at 11:46; Status DC Acetaminophen (Tylenol) 650 mg PRN Q4HRS PRN PO TEMP OVER 100.4F OR MILD PAIN; Start 02/19/22 at 14:45 Albuterol Sulfate (Ventolin Neb Soln) 2.5 mg PRN Q4HRS PRN NEB SHORTNESS OF BREATH Last administered on 02/21/22at 00:00; Start 02/19/22 at 14:45 Apixaban (Eliquis) 5 mg BID PO Last administered on 02/19/22at 20:42; Start 02/19/22 at 21:00; Stop 02/20/22 at 11:14; Status DC Atorvastatin Calcium (Lipitor) 20 mg QHS PO Last administered on 02/22/22at 22:04; Start 02/19/22 at 21:00 Diltiazem HCl (Cardizem 24hr Cd) 240 mg DAILY PO Last administered on 02/22/22at 09:28; Start 02/20/22 at 09:00 Docusate Sodium (Colace) 100 mg DAILY PO Last administered on 02/23/22at 09:18; Start 02/20/22 at 09:00 Furosemide (Lasix) 120 mg DAILY PO Last administered on 02/20/22at 13:10; Start 02/20/22 at 09:00; Stop 02/20/22 at 14:09; Status DC Magnesium Oxide (Magnesium Oxide) 400 mg DAILY PO Last administered on at 09:18; Start 02/20/22 at 09:00 Pantoprazole Sodium (Protonix) 40 mg DAILYAC PO Last administered on 02/23/22at 05:47; Start 02/20/22 at 07:30 Simethicone (Gas-X) 40 mg Q6HRS PO Last administered on 02/23/22at 05:47; Start 02/19/22 at 18:00 Albuterol/ Ipratropium (Duoneb) 3 ml RTQID NEB Last administered on 02/23/22 11:23; Start 02/19/22 at 16:00 Info (Anti-Coagulation Monitoring By Pharmacy) 1 each PRN DAILY PRN MC PER PROTOCOL Last administered on 02/22/22at 16:53; Start 02/19/22 at 15:15 Digoxin (Lanoxin) 500 mcg 1X ONCE IV Last administered on 02/19/22at 18:09; Start 02/19/22 at 17:15; Stop 02/19/22 at 17:16; Status DC Piperacillin Sod/ Tazobactam Sod (Zosyn Per Pharmacy) 1 each PRN DAILY PRN MC SEE COMMENTS; Start 02/19/22 at 17:15 Piperacillin Sod/ Tazobactam Sod 3.375 gm/Sodium Chloride 50 ml @ 100 mls/hr Q6HRS IV Last administered on 02/23/22at 05:47; Start 02/19/22 at 18:00 Lactobacillus Rhamnosus (Culturelle) 1 cap BID PO Last administered on 02/23/22at 09:18; Start 02/20/22 at 09:00 Heparin Sodium/ Dextrose 250 ml @ 10 mls/hr CONT PRN PRN IV PER PROTOCOL Last administered on 02/20/22at 11:45; Start 02/20/22 at 11:30; Stop 02/20/22 at 19:35; Status DC Digoxin (Lanoxin) 500 mcg 1X ONCE IV Last administered on 02/20/22 11:30; Start 02/20/22 at 11:30; Stop 02/20/22 at 11:31; Status DC Heparin Sodium/ Dextrose 250 ml @ 10 mls/hr CONT PRN IV PER PROTOCOL Last administered on 02/23/22at 02:13; Start 02/20/22 at 19:45 Heparin Sodium (Porcine) (Heparin Sodium) 25 UNITS / KG PRN Q6HRS PRN IV FOR PTT < 40 Last administered on 02/21/22at 23:43; Start 02/20/22 at 19:45 Oxycodone/ Acetaminophen (Percocet 5/325) 1 tab PRN Q4HRS PRN PO SEVERE PAIN 7- 10 Last administered on 02/22/22at 22:04; Start 02/20/22 at 23:30 Aspirin (Ecotrin) 81 mg DAILYWBKFT PO Last administered on 02/23/22at 09:18; Start 02/21/22 at 15:00 Active Scripts Active Simethicone 80 Mg Tab.chew 0.5 Tab PO Q6HRS 10 Days Insulin Lispro Kwikpen U-100 (Insulin Lispro) 100 Unit/1 Ml Insuln.pen 0-9 Unit SQ TIDACHC 30 Days Potassium Chloride (Potassium Chloride) 20 Meq Tablet.er 20 Meq PO DAILYWBKFT 30 Days Pantoprazole Sodium (Pantoprazole Sodium) 40 Mg Tablet.dr 40 Mg PO DAILYAC 30 Days Colace (Docusate Sodium) 100 Mg Capsule 100 Mg PO DAILY 30 Days Magnesium Oxide 400 Mg Tablet 400 Mg PO DAILY 30 Days Acetaminophen 325 Mg Tablet 650 Mg PO PRN Q4HRS PRN 30 Days Atorvastatin Calcium 20 Mg Tablet 20 Mg PO QHS 30 Days Eliquis (Apixaban) 5 Mg Tablet 5 Mg PO BID 30 Days Diltiazem 24Hr Cd (Diltiazem HCl) 240 Mg Cap.er.24h 240 Mg PO DAILY 30 Days [Albuterol Sulfate] 2.5 MG/3 ML Nebu 2.5 Mg NEB PRN Q2HR PRN Reported Furosemide 40 Mg Tablet 3 Tab PO DAILY Advair 500-50 Diskus (Fluticasone/Salmeterol) 1 Each Disk.w.dev 1 Puff INH BID Albuterol Sulfate Neb Soln (Albuterol Sulfate) 2.5 Mg/3 Ml Vial.neb 2.5 Mg NEB PRN Q4-6HRS PRN Glyxambi 25 mg-5 mg Tablet (Empagliflozin/Linagliptin) 1 Each Tablet 1 Each PO DAILY Metformin Hcl Er (Metformin Hcl) 500 Mg Tab.er.24 500 Mg PO BID Lisinopril 5 Mg Tablet 10 Mg PO DAILY Spiriva (Tiotropium [place]) 18 Mcg Cap.w.dev 18 Mcg IH DAILY Vitals/I & O Vital Sign - Last 24 Hours 02/22/22 02/22/22 02/22/22 02/22/22 15:00 15:28 17:57 18:01 Temp 97.8 97.8 Pulse 87 Resp 24 B/P (MAP) 94/63 (73) Pulse Ox 94 97 95 98 O2 Delivery BiPAP/CPAP BiPAP/CPAP BiPAP/CPAP BiPAP/CPAP 02/22/22 02/22/22 02/22/22 02/22/22 19:23 20:00 20:57 22:04 Temp 97.8 97.8 Pulse 85 Resp 24 B/P (MAP) 103/67 (79) Pulse Ox 96 94 O2 Delivery BiPAP/CPAP Bi-pap BiPAP/CPAP BiPAP/CPAP 02/22/22 02/22/22 02/23/22 02/23/22 22:34 23:00 00:40 02:47 Temp 97.6 97.3 97.6 97.3 Pulse 80 86 Resp 22 20 B/P (MAP) 106/66 (79) 96/63 (74) Pulse Ox 98 99 O2 Delivery BiPAP/CPAP BiPAP/CPAP BiPAP/CPAP BiPAP/CPAP 02/23/22 02/23/22 02/23/22 02/23/22 04:40 07:00 07:32 10:56 Temp 97.5 97.4 97.5 97.4 Pulse 80 81 Resp 20 18 B/P (MAP) 94/61 (72) 109/61 (77) Pulse Ox 93 94 O2 Delivery BiPAP/CPAP BiPAP/CPAP BiPAP/CPAP BiPAP/CPAP 02/23/22 11:23 O2 Delivery BiPAP/CPAP Intake and Output 02/22/22 02/22/22 02/23/22 15:00 23:00 07:00 Intake Total 400 ml 360 ml 323 ml Output Total 850 ml 575 ml 800 ml Balance -450 ml -215 ml -477 ml Justifications for Admission Other Justification Acute hypoxemic respiratory failure Nutrition Consultation Dietary Evaluation: Recommendations by RD: Dietary education by RD, Increase Calorie Intake, Protein supplementation Comments: ADA /cardiac diet Glucerna tid REC mvi and vit c per wound protocal Expected Outcomes/Goals: to meet >75% est nutr needs Malnutrition Findings: Food and Nutrition Intake (Sev: <50% est energy req 5days Weight Status: Obese Fluid Accumulation (Severe): Severe PAUL AMAYA DPJulian Feb 23, 2022 12:06
[2022-02-23] MEDS ORDERED: VANCOMYCIN PER PHARMACY MC PRN (12:30)
--- NOTE | 2022-02-23 12:44 | NUR ---
SS following for discharge planning. SS reviewed pt chart and discussed with pt RN. Pt is from home with family and is currently on the BIPAP at 40%. Pt on IV Zosyn. Heparin drip. Right heart cath today. Pt has home BIPAP machine and home oxygen. SS will continue to follow for discharge planning.
[2022-02-23] MEDS ORDERED: VANCOMYCIN 2 GM in IV NORMAL SALINE 500ML BAG 500 ML IV ONE (13:00)
[2022-02-23] MEDS ORDERED: LIDOCAINE 1% Multi-Dose 20 ML VIAL. ONE (13:25)
--- NOTE | 2022-02-23 13:56 | RAD ---
XR CHEST 1V INDICATION: CHF/EFFUSIONS / Spl. Instructions: / History: . COMPARISON STUDY: 02/19/2022. FINDINGS: Lungs: Normal lung volume. Slightly improved diffuse bilateral opacities. Pleura: Improving small pleural effusions. Heart and Mediastinum: Stable cardiomediastinal silhouette and great vessels. Bones and Soft Tissues: Stable regional skeleton and soft tissues. IMPRESSION: Slightly improved diffuse bilateral opacities and improved small bilateral pleural effusions. Electronically signed by: Grant Saunders MD (02/23/2022 1:53 PM) [id number]
--- NOTE | 2022-02-23 14:09 | PDOC ---
MODERATE SEDATION ASSESSMENT RISKS/ALTERNATIVES Risks/Alternatives Risks and alternatives of this type of sedation and procedure discussed with: RISK/ALTERNATIVES: Patient H & P ON CHART H & P H & P on chart and reviewed for co-morbid conditions and appropriate labs. H&P ON CHART: Yes STATUS PREG STATUS ASSESSED: N/A MEDS/ALLERGIES REVIEWED Meds/Allergies Reviewed Medications and Allergies including time and route of recently administered narcotics and sedatives. MEDS/ALLERGIES REVIEWED: Yes ASA RATING ASA RATING: III AIRWAY ASSESSMENT Airway Assessment Airway patency, oral function limitations, presence of caps, crowns, dentures, partials, and ability to extend neck assessed. AIRWAY ASSESSMENT: Yes MALLAMPATI SCORE MALLAMPATI SCORE: II PRE-SEDATION ASSESSMENT PRE-SEDATION ASSESSMENT: Yes MARLON CASTILLO MD Feb 23, 2022 14:09
[2022-02-23] MEDS ORDERED: LIDOCAINE 2% Multi-Dose 20 ML VIAL. IJ ONE (14:15)
--- NOTE | 2022-02-23 14:18 | NUR ---
Pharmacy Vancomycin Dosing Note S:Consulted to monitor and dose vancomycin started 02/23/22. O:ELIUD RICCI is a 57 year old M with a diabetic foot wound with positive MRSA culture. Height: 6 feet, 3 inches Weight: 130.4 kg [place] Body Weight: 84.50 Adjusted Body Weight: 102.86 Dosing Weight: Actual Other Antibiotics: Piperacillin-tazobactam 3.375 gm q 6 hours LABS: Last BUN: 34 Last Creatinine: 2.8 (baseline 11/2021 noted to be 1.1) Creatinine Clearance: 40-45 mL/min? Last WBC: 5.6 (02/22) Tmax (past 24 hours): 97.8 Microbiology: 02/19/22 - BC NGTD x 4 days 02/19/22 - Left foot culture Organism 1 PSEUDOMONAS AERUGINOSA susceptible to zosyn Organism 2 ENTEROCOCCUS FAECALIS susceptibilites pending Organism 3 STAPHYLOCOCCUS AUREUS (MRSA) susceptible to vanco I/O: 1083/2225 Last dose given 02/23/22 Vancomycin Dosing: Loading Dose: 2000 mg x1 Dosing Weight: Actual Target Trough: 10-20 A: Based on: Patient's PMH, renal function and severity of suspected infection P: 1. Will give 1x 2 gram Vancomycin loading dose and check a 24 hour random level prior to ordering additional maintenance doses. 2. Pharmacy will continue to monitor, follow and adjust therapy as needed. JOSE CARLOS G[facility]EN [facility], 02/23/22 [id number]
[2022-02-23] MEDS ORDERED: NITROGLYCERIN 200 MCG/2 ML SYRINGE FOR CATH/VASC LAB. ONE (14:22)
[2022-02-23] MEDS ORDERED: HEPARIN for IV BOLUS 10,000 UNIT/10 ML VIAL. ONE (14:22)
[2022-02-23] MEDS ORDERED: VERAPAMIL 5 MG/2 ML VIAL. ONE (14:22)
[2022-02-23] MEDS ORDERED: HEPARIN for IV BOLUS 10,000 UNIT/10 ML VIAL. IART ONE (14:30)
[2022-02-23] MEDS ORDERED: NITROGLYCERIN 200 MCG/2 ML SYRINGE FOR CATH/VASC LAB. IART ONE (14:30)
[2022-02-23] MEDS ORDERED: VERAPAMIL 5 MG/2 ML VIAL. IART ONE (14:30)
[2022-02-23] MEDS ORDERED: ADENOSINE 90 MG/30 ML VIAL. IV ONE ×2 (14:31→14:32)
--- NOTE | 2022-02-23 15:21 | CARD ---
MR#: [id number] Date of Study: 02/23/2022 Ordering Physician: MARLON DENIS, Referring Physician: MARLON DENIS, Tech: Ansley Milton APPROVED REPORT Technologist: Ansley Milton Nurse: Bailey Hale RN Procedure(s) performed: fl time: 4.2 min dose: 10 gycm2 RHC, LHC INDICATION The indication(s) include : dyspnea. CASE TECHNIQUE IV conscious sedation was used throughout procedure with appropriate monitoring and was performed in the presence of a registered nurse who was an independent trained observer other than the physician p erforming the procedure. During this case, Fluoroscopy and no contrast were used for imaging. Specime n(s) Removed: N/A Estimated Blood loss: 20 cc's. PROCEDURE NARRATIVE Clinical information: 57-year-old male presented to the hospital in the setting of acute hypoxic respiratory failure requir ing noninvasive ventilation continuously. He has had some worsening renal function with diuresis and therefore he is brought to the catheterization laboratory for further evaluation of his volume statu s. Procedure details: After appropriate informed consent the right arm and wrist were prepped and draped in usual sterile f ashion. Under 1% lidocaine local anesthesia a 5 [place] sheath was placed in the right brachial vein via ultrasound guidance. Next a 5 [place] PA catheter was advanced to the right heart chambers and pr essures and saturations were obtained. Findings: RA 90 mmHg RV 61/12/19 PA 62/35/45 Wedge 17 mmHg Due to the patient's wedge being elevated a decision was made to obtain a LVEDP for more accurate willy surement. Of note, care was taken to remove the patient from positive noninvasive ventilation and me asurements were obtained on room air. A 6 [place] sheath was placed in the right radial artery via th e modified Seldinger technique. Next a 6 [place] pigtail catheter was advanced into the left ventricl e and pressures were obtained. A pullback was performed. LVEDP 14 mmHg No LV to aortic pullback gradient FA saturation 87% PA saturation 50% [place] cardiac output 5.5 L/min, cardiac index 2.2 Given the patient's normal LVEDP and elevated pulmonary pressures a decision was made to perform vaso dilator study. Adenosine was infused up to a maximum of 200 mcg/kg/min but this did not reveal any s ignificant changes to the patient's blood pressure or mean pulmonary artery pressure. At case comple tion the catheters and sheaths were removed and hemostasis was achieved via manual compression and a Terum[place] radial band. No acute complications. Conclusion 1. Normal left-sided filling pressures 2. Severe pulmonary hypertension, mean PA 45 mmHg 3. Cor pulmonale Recommendations 1. Continue aggressive risk factor modification to include treatment of sleep apnea, COPD and obesit y. 2. We will plan for intravenous fluid administration for total 1 L over the next 12 to 24 hours to s ee if this helps with his kidney function in light of the fact that his filling pressures on the left side are within normal today. 3. Consider transfer to [facility] for management of pulmonary hypertension an d multiorgan failure if he does not improve within the next 24 to 48 hours. Signed by : Marlon Denis, Electronically Approved : 02/23/2022 15:21:10
[2022-02-23] MEDS ORDERED: VANCOMYCIN RANDOM LEVEL. MC ONE (16:00)
[2022-02-23] MEDS: ANTI-COAG MONITOR BY PHARMACY. MC PRN (16:38)
[2022-02-23] MEDS: ATORVASTATIN CALCIUM 20 MG TABLET PO SCH (20:54)
[2022-02-23] MEDS: oxyCODONE/APAP 5/325 1 TAB TABLET PO PRN (23:14)
[2022-02-24 03:01] VITALS: BP 99/60
[2022-02-24] MEDS: PANTOPRAZOLE 40 MG TABLET.DR. PO SCH (05:46)
[2022-02-24] MEDS: SIMETHICONE 80 MG TAB.CHEW PO SCH ×4 (05:46→23:09)
[2022-02-24] MEDS: PIPERACILLIN/TAZOBACTAM 3.375 GM in IV NORMAL SALINE 50ML 50 ML IV SCH ×2 (05:48→11:33)
[2022-02-24 06:18] LABS: ALBUMIN 1.7 g/dL (3.4-5.0); CALCIUM 8.1 mg/dL (8.5-10.1); CREATININE 2.7 mg/dL (0.7-1.3); GFR 24.6; PHOSPHORUS 5.3 mg/dL (2.6-4.7); POTASSIUM 3.7 mmol/L (3.5-5.1)
[2022-02-24 07:00] VITALS: BP 93/63
[2022-02-24] MEDS ORDERED: PERFLUTREN PROTEIN-A MICROSPHR 0.22 MG/ML 3 ML VIAL. IV ONE (07:00)
[2022-02-24] MEDS: IPRATRPIUM/ALBUTEROL 0.5/2.5MG 3 ML NEBU. NEB SCH ×4 (07:10→19:49)
[2022-02-24] MEDS: ASPIRIN ENTERIC COATED 81 MG TABLET.DR. PO SCH (08:00)
--- NOTE | 2022-02-24 08:37 | PDOC ---
SURGICAL PROGRESS NOTE DATE: 02/24/22 TIME: 08:34 Subjective Patient was seen and examined at the bedside. They are performing a bedside echocardiogram currently. There were no acute events overnight. Vital Signs Vital Signs Date Time Temp Pulse Resp B/P (MAP) Pulse Ox O2 Delivery O2 Flow Rate FiO2 02/24/22 07:10 98 BiPAP/CPAP 02/24/22 07:00 97.8 82 20 93/63 (73) 97.8 I&O Intake and Output 02/24/22 07:00 Intake Total 1050 ml Output Total 1300 ml Balance -250 ml Intake Oral 1000 ml IV Total 50 ml Output Urine Total 1300 ml General: Alert, Oriented X3, Cooperative HEENT: Atraumatic, PERRLA Lungs: Clear to auscultation, Normal air movement Heart: Regular rate, Normal S1, Normal S2 Abdomen: Normal bowel sounds, Soft, Other (Obese) Extremities: No clubbing, No cyanosis, Other (Bilateral lower extremity pitting edema) Skin: Other (Dry gangrene of the left fourth toe, no cellulitis, no drainage, no purulence, no malodor) Neuro: Normal speech, Strength at 5/5 X4 ext, Sensation intact, Cranial nerves 3-12 NL Psych/Mental Status: Mental status NL, Mood NL Labs Laboratory Tests Test 02/22/22 11:39 02/22/22 15:20 02/22/22 16:36 02/22/22 20:37 Glucose (Fingerstick) 155 mg/dL (70-99) 125 mg/dL (70-99) 147 mg/dL (70-99) White Blood Count 5.6 x10^3/uL (4.0-11.0) Red Blood Count 3.60 x10^6/uL (4.30-5.70) Hemoglobin 11.4 g/dL (13.0-17.5) Hematocrit 35.5 % (39.0-53.0) Mean Corpuscular Volume 99 fL (79-100) Mean Corpuscular Hemoglobin 32 pg (25-35) Mean Corpuscular Hemoglobin Concent 32 g/dL (31-37) Red Cell Distribution Width 15.7 % (11.5-14.5) Platelet Count 168 x10^3/uL (140-400) Activated Partial Thromboplast Time 45 SEC (24-38) Test 02/22/22 22:35 02/23/22 07:19 02/23/22 08:50 02/23/22 11:35 Activated Partial Thromboplast Time 52 SEC (24-38) 75 SEC (24-38) Glucose (Fingerstick) 118 mg/dL (70-99) 140 mg/dL (70-99) Sodium Level 135 mmol/L (136-145) Potassium Level 3.9 mmol/L (3.5-5.1) Chloride Level 95 mmol/L (98-107) Carbon Dioxide Level 35 mmol/L (21-32) Anion Gap 5 (6-14) Blood Urea Nitrogen 34 mg/dL (8-26) Creatinine 2.8 mg/dL (0.7-1.3) Estimated GFR (Cockcroft-Gault) 23.6 Glucose Level 127 mg/dL (70-99) Calcium Level 8.3 mg/dL (8.5-10.1) Creatine Kinase 18 U/L (39-308) Test 02/23/22 16:58 02/23/22 20:00 02/23/22 20:59 02/24/22 02:40 Glucose (Fingerstick) 110 mg/dL (70-99) 162 mg/dL (70-99) Activated Partial Thromboplast Time 61 SEC (24-38) 76 SEC (24-38) Test 02/24/22 04:15 02/24/22 07:20 Sodium Level 137 mmol/L (136-145) Potassium Level 3.7 mmol/L (3.5-5.1) Chloride Level 98 mmol/L (98-107) Carbon Dioxide Level 31 mmol/L (21-32) Anion Gap 8 (6-14) Blood Urea Nitrogen 35 mg/dL (8-26) Creatinine 2.7 mg/dL (0.7-1.3) Estimated GFR (Cockcroft-Gault) 24.6 Glucose Level 116 mg/dL (70-99) Calcium Level 8.1 mg/dL (8.5-10.1) Phosphorus Level 5.3 mg/dL (2.6-4.7) Albumin 1.7 g/dL (3.4-5.0) Glucose (Fingerstick) 123 mg/dL (70-99) Laboratory Tests Test 02/23/22 08:50 02/23/22 11:35 02/23/22 16:58 02/23/22 20:00 Activated Partial Thromboplast Time 75 SEC (24-38) 61 SEC (24-38) Sodium Level 135 mmol/L (136-145) Potassium Level 3.9 mmol/L (3.5-5.1) Chloride Level 95 mmol/L (98-107) Carbon Dioxide Level 35 mmol/L (21-32) Anion Gap 5 (6-14) Blood Urea Nitrogen 34 mg/dL (8-26) Creatinine 2.8 mg/dL (0.7-1.3) Estimated GFR (Cockcroft-Gault) 23.6 Glucose Level 127 mg/dL (70-99) Calcium Level 8.3 mg/dL (8.5-10.1) Creatine Kinase 18 U/L (39-308) Glucose (Fingerstick) 140 mg/dL (70-99) 110 mg/dL (70-99) Test 02/23/22 20:59 02/24/22 02:40 02/24/22 04:15 02/24/22 07:20 Glucose (Fingerstick) 162 mg/dL (70-99) 123 mg/dL (70-99) Activated Partial Thromboplast Time 76 SEC (24-38) Sodium Level 137 mmol/L (136-145) Potassium Level 3.7 mmol/L (3.5-5.1) Chloride Level 98 mmol/L (98-107) Carbon Dioxide Level 31 mmol/L (21-32) Anion Gap 8 (6-14) Blood Urea Nitrogen 35 mg/dL (8-26) Creatinine 2.7 mg/dL (0.7-1.3) Estimated GFR (Cockcroft-Gault) 24.6 Glucose Level 116 mg/dL (70-99) Calcium Level 8.1 mg/dL (8.5-10.1) Phosphorus Level 5.3 mg/dL (2.6-4.7) Albumin 1.7 g/dL (3.4-5.0) Problem List Problems Medical Problems: (1) Acute exacerbation of CHF (congestive heart failure) Status: Acute (2) Acute kidney injury Status: Acute (3) Hypoxia Status: Acute Assessment/Plan Atherosclerosis with gangrene of the left fourth toe--patient will require left fourth toe amputation. An angiogram is certainly indicated as well. This is prohibitive currently given the patient's elevated creatinine. I am not certain whether this is acute renal failure versus acute on chronic renal failure. The patient is being seen by nephrology. There is no maintenance fluids ordered likely given the patient's congestive heart failure work-up. We will hold on surgical therapy at this time until stabilization of the patient's medical conditions. Would consider gentle hydration to attempt to improve the patient's renal function if indicated. Will defer to renal recommendations. All questions were answered the patient satisfaction regarding this plan. Sarah Diaz DO, FACS Justicifation of Admission Dx: Justifications for Admission: Justification of Admission Dx: Yes Respiratory Failure: Severe Resp Distress SARAH DIAZ DO Feb 24, 2022 08:37
[2022-02-24] MEDS: MAGNESIUM OXIDE 400 MG TABLET PO SCH (08:41)
[2022-02-24] MEDS: LACTOBACILLUS RHAMNOSUS GG 1 CAPSULE. PO SCH ×2 (08:42→21:20)
[2022-02-24] MEDS: DOCUSATE SODIUM 100 MG CAPSULE. PO SCH (08:44)
[2022-02-24] MEDS: HEPARIN 25,000UTS/250ML PREMIX 250 ML IV PRN (08:57)
--- NOTE | 2022-02-24 09:56 | PDOC ---
DATE OF SERVICE DATE: 02/24/22 TIME: 09:56 SUBJECTIVE ROS No acute concerns, No concerns per nursing OBJECTIVE Vital Signs Vital Signs Date Time Temp Pulse Resp B/P (MAP) Pulse Ox O2 Delivery O2 Flow Rate FiO2 02/24/22 09:05 94 Nasal Cannula 6.0 02/24/22 08:43 79 108/69 02/24/22 07:00 97.8 20 97.8 I & 0 Intake and Output 02/24/22 07:00 Intake Total 1050 ml Output Total 1300 ml Balance -250 ml Intake Oral 1000 ml IV Total 50 ml Output Urine Total 1300 ml PHYSICAL EXAM Physical Exam General: Alert, Oriented X3, Mild distress, waering Bipap HEENT: Atraumatic, PERRLA, On Bipap Neck Supple Lungs: Decreased at bases ant, Heart: irregularly irregular, Abdomen: Normal bowel sounds, Obese Extremities: edema +, Changes of CVI +; left foot there is black dry gangrene of the fourth toe, no surrounding erythema or drainage Skin: No rash Neuro: Grossly normal , moving al extrem Psych/Mental Status: cooperative Lyons +, No CVA or SP tenderness DIAGNOSIS/ASSESSMENT Assessment & Plan LUIS Cardiorenal/ ATN / Renal US unremarkable .Non Oliguric, Creat stabilized ? Plateau Supportive care , maintain fluid balance., avoid overdiuresis Avoid Nephrotoxins Baseline Cr 0.7-0.9; 1.1 since Nov 2021- hospitalized at [facility] Microscopic hematuria- UA with Blood and RBC's repeat same - - Lyons sample UA in May 2021 Unremarkable . Proteunuria- nephrotic range- Lyons sample , Uncontrolled DM history . 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 ID consulted CHF- card managing diuretics . Rt heart cath - verbal report No e/o Vol Overload, has significant Pulm HTN Dry gangrene of the left fourth toe. Will need Amputation, Non Urgent . Discussed with Dr Martinez, planning to hold for now 2/2 LUIS, Non urgent History of COPD History of diabetes mellitus type 2 History of tobacco misuse COMMENT/RELEVANT DATA Meds Current Medications Medications (Trade) Dose Ordered Sig/Theresa Start Time Stop Time Status Last Admin Dose Admin Acetaminophen (Tylenol) 650 mg PRN Q4HRS PRN 02/19/22 14:45 Adenosine (Adenoscan) 90 mg STK-MED ONCE 02/23/22 14:32 02/23/22 14:33 DC Albuterol Sulfate (Ventolin Neb Soln) 2.5 mg PRN Q4HRS PRN 02/19/22 14:45 02/21/22 00:00 2.5 MG Albuterol/ Ipratropium (Duoneb) 3 ml RTQID 02/19/22 16:00 02/24/22 07:10 3 ML Apixaban (Eliquis) 5 mg BID 02/19/22 21:00 02/20/22 11:14 DC 02/19/22 20:42 5 MG Aspirin (Ecotrin) 81 mg DAILYWBKFT 02/21/22 15:00 02/23/22 09:18 81 MG Atorvastatin Calcium (Lipitor) 20 mg QHS 02/19/22 21:00 02/23/22 20:54 20 MG Digoxin (Lanoxin) 500 mcg 1X ONCE 02/20/22 11:30 02/20/22 11:31 DC 02/20/22 11:30 500 MCG Diltiazem HCl (Cardizem 24hr Cd) 240 mg DAILY 02/20/22 09:00 02/24/22 08:43 240 MG Docusate Sodium (Colace) 100 mg DAILY 02/20/22 09:00 02/23/22 09:18 100 MG Furosemide (Lasix) 120 mg DAILY 02/20/22 09:00 02/20/22 14:09 DC 02/20/22 13:10 120 MG Heparin Sodium (Porcine) (Heparin Sodium) 2,500 unit 1X ONCE 02/23/22 14:30 02/23/22 14:34 DC 02/23/22 14:30 2,500 UNIT Heparin Sodium/ Dextrose 250 ml @ 10 mls/hr CONT PRN 02/20/22 19:45 02/24/22 08:57 30.1 MLS/HR Heparin Sodium/ Sodium Chloride (HEPARIN for ARTERIAL LINE FLUSH) 1,000 unit 1X ONCE 02/23/22 14:15 02/23/22 14:23 DC 02/23/22 14:15 1,000 UNIT Info (Anti-Coagulation Monitoring By Pharmacy) 1 each PRN DAILY PRN 02/19/22 15:15 02/23/22 16:38 1 EACH Lactobacillus Rhamnosus (Culturelle) 1 cap BID 02/20/22 09:00 02/24/22 08:42 1 CAP Lidocaine HCl (Lidocaine 1% 20ml Vial) 20 ml STK-MED ONCE 02/23/22 13:25 02/23/22 13:26 DC Lidocaine HCl (Lidocaine 2% 20ml Vial) 2 ml 1X ONCE 02/23/22 14:15 02/23/22 14:24 DC 02/23/22 14:15 3 ML Magnesium Oxide (Magnesium Oxide) 400 mg DAILY 02/20/22 09:00 02/24/22 08:41 400 MG Nitroglycerin (Nitroglycerin) 200 mcg 1X ONCE 02/23/22 14:30 02/23/22 14:34 DC 02/23/22 14:30 200 MCG Oxycodone/ Acetaminophen (Percocet 5/325) 1 tab PRN Q4HRS PRN 02/20/22 23:30 02/23/22 23:14 1 TAB Pantoprazole Sodium (Protonix) 40 mg DAILYAC 02/20/22 07:30 02/24/22 05:46 40 MG Perflutren Protein Type A Microsphe (Optison) 0.66 mg 1X ONCE 02/24/22 07:00 02/24/22 07:01 DC Piperacillin Sod/ Tazobactam Sod (Zosyn Per Pharmacy) 1 each PRN DAILY PRN 02/19/22 17:15 Piperacillin Sod/ Tazobactam Sod 3.375 gm/Sodium Chloride 50 ml @ 100 mls/hr Q6HRS 02/19/22 18:00 02/24/22 05:48 100 MLS/HR Simethicone (Gas-X) 40 mg Q6HRS 02/19/22 18:00 02/24/22 05:46 40 MG Vancomycin HCl (Vanco Per Pharmacy) 1 each PRN DAILY PRN 02/23/22 12:30 02/23/22 14:16 1 EACH Vancomycin HCl (Vancomycin Random Level) 1 each 1X ONCE 02/24/22 16:00 02/24/22 16:01 Vancomycin HCl 2 gm/Sodium Chloride 500 ml @ 250 mls/hr 1X ONCE 02/23/22 13:00 02/23/22 14:59 DC 02/23/22 16:08 250 MLS/HR Verapamil HCl (Verapamil) 2.5 mg 1X ONCE 02/23/22 14:30 02/23/22 14:34 DC 02/23/22 14:30 2.5 MG Lab Laboratory Tests Test 02/23/22 11:35 02/23/22 16:58 02/23/22 20:00 02/23/22 20:59 Glucose (Fingerstick) 140 mg/dL (70-99) 110 mg/dL (70-99) 162 mg/dL (70-99) Activated Partial Thromboplast Time 61 SEC (24-38) Test 02/24/22 02:40 02/24/22 04:15 02/24/22 07:20 Activated Partial Thromboplast Time 76 SEC (24-38) Sodium Level 137 mmol/L (136-145) Potassium Level 3.7 mmol/L (3.5-5.1) Chloride Level 98 mmol/L (98-107) Carbon Dioxide Level 31 mmol/L (21-32) Anion Gap 8 (6-14) Blood Urea Nitrogen 35 mg/dL (8-26) Creatinine 2.7 mg/dL (0.7-1.3) Estimated GFR (Cockcroft-Gault) 24.6 Glucose Level 116 mg/dL (70-99) Calcium Level 8.1 mg/dL (8.5-10.1) Phosphorus Level 5.3 mg/dL (2.6-4.7) Albumin 1.7 g/dL (3.4-5.0) Glucose (Fingerstick) 123 mg/dL (70-99) Results All relevant outside records, renal labs, imaging studies, telemetry/EKG's were reviewed. Justicifation of Admission Dx: Justifications for Admission: Justification of Admission Dx: Yes Respiratory Failure: Severe Resp Distress BLAS ORR MD Feb 24, 2022 09:56
[2022-02-24 10:20] VITALS: BP 108/68
--- NOTE | 2022-02-24 10:37 | PDOC ---
PULMONARY PROGRESS NOTES DATE: 02/24/22 TIME: 10:34 Subjective Patient is up to the chair today, currently on BiPAP at 40%, denies shortness of breath, chest pain or cough this morning, afebrile and no overnight concerns from nursing. Vitals Vital Signs Date Time Temp Pulse Resp B/P (MAP) Pulse Ox O2 Delivery O2 Flow Rate FiO2 02/24/22 10:20 98.1 90 20 108/68 (81) 91 Nasal Cannula 6.0 98.1 ROS: No Nausea, No Chest Pain, No Abdominal Pain, No Increase Cough General: Alert, Oriented X4, No acute distress HEENT: Other Lungs: Clear, Other Cardiovascular: S1, S2 Abdomen: Soft, Non-tender Extremities: Other Skin: Warm, Dry Labs Laboratory Tests Test 02/22/22 11:39 02/22/22 15:20 02/22/22 16:36 02/22/22 20:37 Glucose (Fingerstick) 155 mg/dL (70-99) 125 mg/dL (70-99) 147 mg/dL (70-99) White Blood Count 5.6 x10^3/uL (4.0-11.0) Red Blood Count 3.60 x10^6/uL (4.30-5.70) Hemoglobin 11.4 g/dL (13.0-17.5) Hematocrit 35.5 % (39.0-53.0) Mean Corpuscular Volume 99 fL (79-100) Mean Corpuscular Hemoglobin 32 pg (25-35) Mean Corpuscular Hemoglobin Concent 32 g/dL (31-37) Red Cell Distribution Width 15.7 % (11.5-14.5) Platelet Count 168 x10^3/uL (140-400) Activated Partial Thromboplast Time 45 SEC (24-38) Test 02/22/22 22:35 02/23/22 07:19 02/23/22 08:50 02/23/22 11:35 Activated Partial Thromboplast Time 52 SEC (24-38) 75 SEC (24-38) Glucose (Fingerstick) 118 mg/dL (70-99) 140 mg/dL (70-99) Sodium Level 135 mmol/L (136-145) Potassium Level 3.9 mmol/L (3.5-5.1) Chloride Level 95 mmol/L (98-107) Carbon Dioxide Level 35 mmol/L (21-32) Anion Gap 5 (6-14) Blood Urea Nitrogen 34 mg/dL (8-26) Creatinine 2.8 mg/dL (0.7-1.3) Estimated GFR (Cockcroft-Gault) 23.6 Glucose Level 127 mg/dL (70-99) Calcium Level 8.3 mg/dL (8.5-10.1) Creatine Kinase 18 U/L (39-308) Test 02/23/22 16:58 02/23/22 20:00 02/23/22 20:59 02/24/22 02:40 Glucose (Fingerstick) 110 mg/dL (70-99) 162 mg/dL (70-99) Activated Partial Thromboplast Time 61 SEC (24-38) 76 SEC (24-38) Test 02/24/22 04:15 02/24/22 07:20 Sodium Level 137 mmol/L (136-145) Potassium Level 3.7 mmol/L (3.5-5.1) Chloride Level 98 mmol/L (98-107) Carbon Dioxide Level 31 mmol/L (21-32) Anion Gap 8 (6-14) Blood Urea Nitrogen 35 mg/dL (8-26) Creatinine 2.7 mg/dL (0.7-1.3) Estimated GFR (Cockcroft-Gault) 24.6 Glucose Level 116 mg/dL (70-99) Calcium Level 8.1 mg/dL (8.5-10.1) Phosphorus Level 5.3 mg/dL (2.6-4.7) Albumin 1.7 g/dL (3.4-5.0) Glucose (Fingerstick) 123 mg/dL (70-99) Laboratory Tests Test 02/23/22 11:35 02/23/22 16:58 02/23/22 20:00 02/23/22 20:59 Glucose (Fingerstick) 140 mg/dL (70-99) 110 mg/dL (70-99) 162 mg/dL (70-99) Activated Partial Thromboplast Time 61 SEC (24-38) Test 02/24/22 02:40 02/24/22 04:15 02/24/22 07:20 Activated Partial Thromboplast Time 76 SEC (24-38) Sodium Level 137 mmol/L (136-145) Potassium Level 3.7 mmol/L (3.5-5.1) Chloride Level 98 mmol/L (98-107) Carbon Dioxide Level 31 mmol/L (21-32) Anion Gap 8 (6-14) Blood Urea Nitrogen 35 mg/dL (8-26) Creatinine 2.7 mg/dL (0.7-1.3) Estimated GFR (Cockcroft-Gault) 24.6 Glucose Level 116 mg/dL (70-99) Calcium Level 8.1 mg/dL (8.5-10.1) Phosphorus Level 5.3 mg/dL (2.6-4.7) Albumin 1.7 g/dL (3.4-5.0) Glucose (Fingerstick) 123 mg/dL (70-99) Medications Active Scripts Medications Dose Route/Sig Max Daily Dose Days Date Category Simethicone 80 Mg Tab.chew 0.5 Tab PO Q6HRS 12/19/21 Rx Insulin Lispro Kwikpen U-100 (Insulin Lispro) 100 Unit/1 Ml Insuln.pen 0-9 Unit SQ TIDACHC 12/19/21 Rx Potassium Chloride (Potassium Chloride) 20 Meq Tablet.er 20 Meq PO DAILYWBKFT 12/19/21 Rx Pantoprazole Sodium (Pantoprazole Sodium) 40 Mg Tablet.dr 40 Mg PO DAILYAC 12/19/21 Rx Colace (Docusate Sodium) 100 Mg Capsule 100 Mg PO DAILY 12/19/21 Rx Magnesium Oxide 400 Mg Tablet 400 Mg PO DAILY 12/19/21 Rx Acetaminophen 325 Mg Tablet 650 Mg PO PRN Q4HRS PRN 12/19/21 Rx Atorvastatin Calcium 20 Mg Tablet 20 Mg PO QHS 12/19/21 Rx Furosemide 40 Mg Tablet 3 Tab PO DAILY 12/03/21 Reported Eliquis (Apixaban) 5 Mg Tablet 5 Mg PO BID 30 09/30/21 Rx Diltiazem 24Hr Cd (Diltiazem HCl) 240 Mg Cap.er.24h 240 Mg PO DAILY 09/30/21 Rx Advair 500-50 Diskus (Fluticasone/Salmeterol) 1 Each Disk.w.dev 1 Puff INH BID 09/24/21 Reported Albuterol Sulfate Neb Soln (Albuterol Sulfate) 2.5 Mg/3 Ml Vial.neb 2.5 Mg NEB PRN Q4-6HRS PRN 06/12/21 Reported Glyxambi 25 mg-5 mg Tablet (Empagliflozin/Linagliptin) 1 Each Tablet 1 Each PO DAILY 01/03/21 Reported [Albuterol Sulfate] 2.5 MG/3 ML Nebu 2.5 Mg NEB PRN Q2HR PRN 09/26/14 Rx Metformin Hcl Er (Metformin Hcl) 500 Mg Tab.er.24 500 Mg PO BID 11/26/13 Reported Lisinopril 5 Mg Tablet 10 Mg PO DAILY 11/26/13 Reported Spiriva (Tiotropium [place]) 18 Mcg Cap.w.dev 18 Mcg IH DAILY 11/26/13 Reported Comments Chest x-ray reviewed 02/24/2020. Shows improving pleural effusions and CHF Impression . IMPRESSION: 1. Acute on chronic hypercapnic and hypoxic respiratory failure secondary to acute on chronic cor pulmonale, component of diastolic congestive heart failure and acute exacerbation of chronic obstructive pulmonary disease. 2. Abnormal chest x-ray revealed increasing bilateral interstitial infiltrates and pleural effusions consistent with heart failure. It is combination of diastolic congestive heart failure and acute on chronic right heart failure. 3. Underlying severe chronic obstructive pulmonary disease with chronic hypercapnia and chronic hypoxic respiratory failure. 4. Underlying obesity, hypoventilation syndrome and cor pulmonale. An obstructive sleep apnea. 5. Chronic kidney disease. Recent acute decompensation. 6. Paroxysmal atrial fibrillation. On chronic anticoagulation. 7. Severe protein-calorie malnutrition. Plan . Continue supplemental oxygen to keep oxygen saturations greater than 90%, patient is currently on BiPAP however ABG is compensated . Patient did not like Ventimask. Keep saturations 90 to 92%. Will try nasal cannula again. Bronchodilators Follow chest x-ray improving.. Follow nephrology recommendations in regards to LUIS on CKD, avoid nephrotoxic medications, worsening creatinine. Avoid further Lasix. Heparin per vascular surgery recommendations. May need to amputations in future Physical therapy/Occupational Therapy DVT/GI prophylaxis Discussed with cardiology patient had a cardiac cath in November. He had pulmonary capillary wedge pressure of 20 and pulmonary artery systolic pressure of 48. Discussed with IRAIS SPANN MD Feb 24, 2022 10:37
--- NOTE | 2022-02-24 10:38 | PDOC ---
[facility] PROGRESS NOTE Date of Service DOS: DATE: 02/24/22 TIME: 10:34 Chief Complaint Chief Complaint Acute hypoxic/hypercapnic respiratory failure requiring BiPAP support Abnormal CXR - possible gram-negative organisms possible aspiration Left 2nd toe ulcer H/o A. Acute electrolyte derangementhyponatremia, likely hypervolemic Acute on chronic respiratory acidosis Lactic acidemia Elevated BNP suggestive of volume overload History of COPD History of diabetes mellitus type 2 History of tobacco misuse History of Present Illness History of Present Illness Mr Pelayo is a 57-year-old male with past medical history of CHF, COPD on 6 L home O2, diabetes mellitus 2 who comes in with shortness of breath for the past several weeks. The past few days has worsened to the point where he needed to come to the ED for further evaluation. Patient is on torsemide at home for his CHF. He is little confused and so dyspneic with NT proBNP greater than 13,000 dyspnea did improve with initial diuresis and increasing supplemental O2 and was placed on BiPAP with improvement and admitted for further care. 02/20: Overnight continued on BiPAP / with a 16rr, 60% FiO2 with ABG 7.2 96/64/88. Seen by podiatry for consideration of left second toe amputation and cardiology for consideration for aortogram with runoff given monophasic findings on left lower extremity arterial Doppler with no clear occlusive disease in the lower extremity. Shortness of breath and cough conversational dyspnea. Is able to talk through his BiPAP. No significant chest discomfort currently. 02/21: Seen on BiPAP 40% this morning. Has conversational dyspnea but otherwise he feels the shortness of breath improving. CR 2.6. No chest pain. Polymicrobial infection in his toe. 02/22/2022 No acute events overnight. Patient seen examined on commode. No dyspnea upon my encounter. Still on BiPAP at 40% and saturating 95%. Maintain saturation between 90 to 92%. Patient's chart, labs, images were reviewed and discussed with RN Consults: Cardiology, pulmonology, podiatry, vascular surgery 02/23 Patient evaluated examined at bedside. Up in chair on BiPAP. Said breathing does feel little bit improved but still pretty bad. Creatinine still elevated. Possible heart cath today. Discussed with bedside RN. 02/24 Patient evaluated examined at bedside. Resting in bed. Labored respirations. Reviewed blood culture results does have polymicrobial infection. Will consult ID today. Reviewed heart cath results and recommendations. May need transfer. Discussed with him oxygen requirement as well. He was on 6 L nasal cannula when I saw him does report he sometimes has to push up to 8 or 9 L at home. Also says his BiPAP is not working at home. Not clinically ready for discharge at this point. Vitals/I&O Vitals/I&O: Vital Signs Date Time Temp Pulse Resp B/P (MAP) Pulse Ox O2 Delivery O2 Flow Rate FiO2 02/24/22 10:20 98.1 90 20 108/68 (81) 91 Nasal Cannula 6.0 98.1 I & O 02/23/22 02/23/22 02/24/22 15:00 23:00 07:00 Intake Total 0 ml 200 ml 850 ml Output Total 450 ml 850 ml Balance 0 ml -250 ml 0 ml Physical Exam General: Alert, Oriented X3, Cooperative Heart: Regular rate, Normal S1, Normal S2 Lungs: Clear, Other Abdomen: Normal bowel sounds, Soft, Other (Obese) Extremities: No clubbing, No cyanosis, Other (Bilateral lower extremity pitting edema) Skin: Other (Dry gangrene of the left fourth toe, no cellulitis, no drainage, no purulence, no malodor) Labs Labs: Laboratory Tests Test 02/23/22 11:35 02/23/22 16:58 02/23/22 20:00 02/23/22 20:59 Glucose (Fingerstick) 140 mg/dL (70-99) 110 mg/dL (70-99) 162 mg/dL (70-99) Activated Partial Thromboplast Time 61 SEC (24-38) Test 02/24/22 02:40 02/24/22 04:15 02/24/22 07:20 Activated Partial Thromboplast Time 76 SEC (24-38) Sodium Level 137 mmol/L (136-145) Potassium Level 3.7 mmol/L (3.5-5.1) Chloride Level 98 mmol/L (98-107) Carbon Dioxide Level 31 mmol/L (21-32) Anion Gap 8 (6-14) Blood Urea Nitrogen 35 mg/dL (8-26) Creatinine 2.7 mg/dL (0.7-1.3) Estimated GFR (Cockcroft-Gault) 24.6 Glucose Level 116 mg/dL (70-99) Calcium Level 8.1 mg/dL (8.5-10.1) Phosphorus Level 5.3 mg/dL (2.6-4.7) Albumin 1.7 g/dL (3.4-5.0) Glucose (Fingerstick) 123 mg/dL (70-99) Assessment and Plan Assessmemt and Plan Problems Medical Problems: (1) Acute exacerbation of CHF (congestive heart failure) Status: Acute (2) Acute kidney injury Status: Acute (3) Hypoxia Status: Acute Comment Review of Relevant I have reviewed the following items wade (where applicable) has been applied. Medications: Current Medications Medications (Trade) Dose Ordered Sig/Theresa Route PRN Reason Start Time Stop Time Status Last Admin Dose Admin Vancomycin HCl (Vanco Per Pharmacy) 1 each PRN DAILY PRN MC SEE COMMENTS 02/23/22 12:30 02/23/22 14:16 Vancomycin HCl 2 gm/Sodium Chloride 500 ml @ 250 mls/hr 1X ONCE IV 02/23/22 13:00 02/23/22 14:59 DC 02/23/22 16:08 Heparin Sodium/ Sodium Chloride (HEPARIN for ARTERIAL LINE FLUSH) 1,000 unit 1X ONCE IART 02/23/22 14:15 02/23/22 14:23 DC 02/23/22 14:15 Lidocaine HCl (Lidocaine 2% 20ml Vial) 2 ml 1X ONCE IJ 02/23/22 14:15 02/23/22 14:24 DC 02/23/22 14:15 Nitroglycerin (Nitroglycerin) 200 mcg 1X ONCE IART 02/23/22 14:30 02/23/22 14:34 DC 02/23/22 14:30 Verapamil HCl (Verapamil) 2.5 mg 1X ONCE IART 02/23/22 14:30 02/23/22 14:34 DC 02/23/22 14:30 Heparin Sodium (Porcine) (Heparin Sodium) 2,500 unit 1X ONCE IART 02/23/22 14:30 02/23/22 14:34 DC 02/23/22 14:30 Justifications for Admission Other Justification Acute hypoxemic respiratory failure ABY TINOCO MD Feb 24, 2022 10:38
--- NOTE | 2022-02-24 12:40 | PDOC ---
ULISES HOUGH LIPSTICK MOLDER 02/24/22 1240: CARDIO Progress Notes Date and Time Date of Service 02/24/2022 Time of Evaluation 1220 Subjective Subjective: No Chest Pain, No Palpitations, Other (Still, has some SOA) Vitals Vitals Vital Signs Date Time Temp Pulse Resp B/P (MAP) Pulse Ox O2 Delivery O2 Flow Rate FiO2 02/24/22 11:22 91 BiPAP/CPAP 02/24/22 10:20 98.1 90 20 108/68 (81) 6.0 98.1 Weight Weight [ ] Input and Output Intake and Output Intake and Output 02/24/22 07:00 Intake Total 1050 ml Output Total 1300 ml Balance -250 ml Intake Oral 1000 ml IV Total 50 ml Output Urine Total 1300 ml Laboratory Labs Laboratory Tests Test 02/23/22 16:58 02/23/22 20:00 02/23/22 20:59 02/24/22 02:40 Glucose (Fingerstick) 110 mg/dL (70-99) 162 mg/dL (70-99) Activated Partial Thromboplast Time 61 SEC (24-38) 76 SEC (24-38) Test 02/24/22 04:15 02/24/22 07:20 02/24/22 10:19 02/24/22 11:29 Sodium Level 137 mmol/L (136-145) Potassium Level 3.7 mmol/L (3.5-5.1) Chloride Level 98 mmol/L (98-107) Carbon Dioxide Level 31 mmol/L (21-32) Anion Gap 8 (6-14) Blood Urea Nitrogen 35 mg/dL (8-26) Creatinine 2.7 mg/dL (0.7-1.3) Estimated GFR (Cockcroft-Gault) 24.6 Glucose Level 116 mg/dL (70-99) Calcium Level 8.1 mg/dL (8.5-10.1) Phosphorus Level 5.3 mg/dL (2.6-4.7) Albumin 1.7 g/dL (3.4-5.0) Glucose (Fingerstick) 123 mg/dL (70-99) 111 mg/dL (70-99) Activated Partial Thromboplast Time 75 SEC (24-38) Microbiology Micro Microbiology 02/21/22 Urine Culture - Final, Complete 02/19/22 Gram Stain - Final, Resulted 02/19/22 Aerobic and Anaerobic Culture - Preliminary, Resulted Pseudomonas Aeruginosa Enterococcus Faecalis Staphylococcus Aureus (Mrsa) 02/19/22 Blood Culture - Preliminary, Resulted NO GROWTH AFTER 4 DAYS Physical Exam HEENT: Neck Supple W Full Motion Chest: Symmetric LUNGS: Other (diminished, bipap in place) Heart: irregularly irregular (AFIB) Abdomen: Soft N/T, Other (obese) Extremities: Other (3+ bilateral LE pitting edema, venous dermatitis) Neurology: alert, oriented, follow commands Assessment Assessment 1. Acute on chronic hypercapnic respiratory failure, AECOPD, CHF, cor pulmonale 2. Acute on chronic diastolic CHF: improved 3. Persistent AFIB with RVR: now controlled 4. DM2: per PCP 5. Hypertension: controlled 6. HLP 7. BALTA, obesity hypoventilation syndrome: poor bipap compliance, last use was 3 weeks ago 8. CAD; recent Moderate single-vessel coronary artery disease to LAD 9. LLE PAD with noted neuropathy and left 4th toe gangrene: stub toe [address] Hutson and Dr. Griggs following 10. LUIS: Cr stable currently at 2.7, nephrology following 11. Severe pulmonary HTN/cor pulmonale: nml left sided filling pressure per RHC Recommendations Bipap No lasix at this time. Continue PO cardizem DC heparin and restart home eliquis Secondary prevention measures He has failed to follow up in office x2 and further failed to use his BiPAP but reported med compliance including eliquis. Discussed treatment adherance. He was suppose to be set for CVN as an outpt but failed to f/u with Dr. Crawford. Will consider for CVN as an inpt. Ongoing lung optimization. Referral for outpt pulmonary HTN management. Justicifation of Admission Dx: Justifications for Admission: Justification of Admission Dx: Yes Respiratory Failure: Severe Resp Distress DARBY TUTTLE MD 02/24/22 1297: CARDIO Progress Notes Assessment Assessment Patient seen and examined He is feeling mildly better. I agree with our nurse practitioners assessment and plan. Acute on chronic hypercapnic respiratory failure, AECOPD, CHF, cor pulmonale. Now off BiPAP. Followed by pulmonary. Acute on chronic diastolic CHF: improved Persistent AFIB with RVR: now controlled. Eliquis being started. Oral diltiazem. DM2: per PCP Hypertension: controlled HLP BALTA, obesity hypoventilation syndrome: poor bipap compliance, last use was 3 weeks ago CAD; recent Moderate single-vessel coronary artery disease to LAD LLE PAD with noted neuropathy and left 4th toe gangrene: stub toe [address] Hutson and Dr. Griggs following LUIS: Cr stable currently at 2.7, nephrology following Severe pulmonary HTN/cor pulmonale: nml left sided filling pressure per RHC ULISES HOUGH APRN Feb 24, 2022 12:40 DARBY TUTTLE MD Feb 24, 2022 17:07
[2022-02-24] MEDS: APIXABAN 5 MG TABLET. PO SCH ×2 (13:18→21:24)
--- NOTE | 2022-02-24 13:40 | NUR ---
SS following up with discharge planning. SS reviewed pt chart and discussed with pt RN. Pt is currently requiring oxygen at six liters nasal canula and BIPAP PRN. Pt on IV Zosyn. ID consulted. PT/OT ordered. Pt has home oxygen and home BIPAP. Pt had heart cath on 02/23/2022. SS will continue to follow for discharge planning.
[2022-02-24 14:23] VITALS: BP 92/61
--- NOTE | 2022-02-24 15:42 | CONS ---
DATE OF CONSULTATION: 02/24/2022 REQUESTING PHYSICIAN: Dr. Vernon. REASON FOR CONSULTATION: Antibiotic management. HISTORY OF PRESENT ILLNESS: This is a 57-year-old gentleman with severe respiratory problems who is on oxygen at 10 liters at home. The patient presented with leg edema, left fourth toe turned black last three weeks. The patient denied any fever, denies any trauma, denies any nausea, vomiting, diarrhea. The patient has been undergoing workup. The patient was seen by Podiatry as well as Vascular Surgery and he needs toe amputation, but because of the creatinine high they cannot do angiogram or any further workup for the circulation. The patient had some sort of swab culture done from the toe, which is showing pseudomonas, Enterococcus and MRSA. Other than respiratory problem he has no other complaints. PAST MEDICAL HISTORY: Positive for COPD, pulmonary fibrosis, congestive heart failure, atrial fibrillation, obstructive sleep apnea, coronary artery disease, diabetes, gastroesophageal reflux disease. SOCIAL HISTORY: Negative for smoking, alcohol, illicit drug use. ALLERGIES: No known drug allergies. CURRENT MEDICATIONS: Reviewed. The patient is on Zosyn, vancomycin. REVIEW OF SYSTEMS: As in HPI. All other systems reviewed are negative. PHYSICAL EXAMINATION: GENERAL: Alert, oriented gentleman, not in distress. VITAL SIGNS: Stable, afebrile. HEENT: NAD. NECK: Supple, no JVP, no lymphadenopathy. LUNGS: Clear. HEART: S1, S2, regular. ABDOMEN: Soft, nontender, no organomegaly. EXTREMITIES: Dry, cracked skin all over with venous insufficiency, stasis dermatitis, left fourth toe is gangrenous, it is dry gangrene; edema 2+; peripheral pulses not palpable secondary to edema. Rest of the skin exam is unremarkable. NEUROLOGIC: The patient is alert, awake, and appropriate. No focal neurologic deficit. LABORATORY DATA: White count is 5.6, platelets are normal. BUN and creatinine is 35 and 2.7. Urinalysis unremarkable. Influenza screen is negative. Blood cultures are negative. Urine culture is no growth and the toe culture is Pseudomonas, Enterococcus faecalis and MRSA. The patient had x-ray, CT X-ray of the foot showed cortical erosion; erosive changes of the medial aspect of the fourth toe, proximal phalanx of the head, middle and distal phalanx concerning for osteomyelitis. IMPRESSION: 1. Left fourth toe gangrene with osteomyelitis. 2. Chronic obstructive pulmonary disease . 3. Congestive heart failure. 4. Coronary artery disease. 5. Atrial fibrillation. 6. Renal insufficiency. RECOMMENDATIONS: I will discontinue vancomycin, put him on oral Zyvox. Continue Zosyn for the time being, supportive care and since toe amputation has been already planned, the patient can actually be discharged when ready, on oral Zyvox and oral ciprofloxacin. Until the discharge we will continue with Zosyn and Zyvox. Thank you very much, Dr. Vernon, for giving me opportunity to participate in this patient's care. Overall, prognosis is poor. FREDY/JUSTINA DR: Maura TID: [id number]
--- NOTE | 2022-02-24 15:46 | CARD ---
MR#: [id number] Date of Study: 02/24/2022 Ordering Physician: MARLON CASTILLO, Referring Physician: MARLON CASTILLO, Tech: Romelia Mckeon RUST APPROVED REPORT EXAM: Two-dimensional and M-mode echocardiogram with Doppler and color Doppler. Other Information Quality : Technically LimitedHR: 85bpm Rhythm : NSR INDICATION Congestive Heart Failure Echo Enhancing Agent Indication: Endocardial border delineation Agent/Amount Used: Optison 3mL RISK FACTORS Hypertension Obesity Hyperlipidemia Diabetes 2D DIMENSIONS RVDd5.2 (2.9-3.5cm)Left Atrium(2D)4.9 (1.6-4.0cm) IVSd1.4 (0.7-1.1cm)Aortic Root(2D)4.0 (2.0-3.7cm) LVDd6.1 (3.9-5.9cm)LVOT Diameter2.3 (1.8-2.4cm) PWd1.0 (0.7-1.1cm)LVDs4.4 (2.5-4.0cm) FS (%) 28.1 %SV98.0 ml LVEF(%)53.4 (>50%) Aortic Valve AoV Peak Ashu.147.8cm/sAoV VTI24.3cm AO Peak GR.8.7mmHgLVOT Peak Ashu.96.3cm/s AO Mean GR.5mmHgAVA (VMAX)2.74cm2 Mitral Valve MV E Lelmznzx67.8cm/s Pulmonary Valve PV Peak Meypqzkd330.5cm/s Tricuspid Valve TR P. Hwuuyecj260if/sTR Peak Gr.43mmHg LEFT VENTRICLE The left ventricle is normal size. Mild asymetrical septal hypertrophy. The systolic function is ridge rely impaired. Estimated ejection fraction 25%. Septal motion suggestive of conduction defect. There is global hypokinesis of the left ventricle. There is significant RV pressure overload with a D-shape d septum. There is flattening of the ventricular septum suggesting right ventricular volume/pressure overload. RIGHT VENTRICLE The right ventricle is severely dilated. There is normal right ventricular wall thickness. RV Systoli c function is severely reduced. ATRIA The left atrium size is normal. The right atrium is severely dilated. The interatrial septum is intac t with no evidence for an atrial septal defect or patent foramen ovale as noted on 2-D or Doppler lavell ging. AORTIC VALVE The aortic valve is normal in structure and function. Doppler and Color Flow revealed no significant aortic regurgitation. There is no significant aortic valvular stenosis. MITRAL VALVE The mitral valve is normal in structure and function. There is no evidence of mitral valve prolapse. There is no mitral valve stenosis. Doppler and Color-flow revealed mild mitral regurgitation. TRICUSPID VALVE The tricuspid valve is normal in structure and function. Doppler and Color Flow revealed mild tricusp id regurgitation. Estimated PAP 58 mmHg. There is no tricuspid valve stenosis. PULMONIC VALVE Doppler and Color Flow revealed mild pulmonic valvular regurgitation. There is no pulmonic valvular s tenosis. GREAT VESSELS The aortic root is normal in size. The ascending aorta is normal in size. The IVC is dilated and zina apses <50% with inspiration. PERICARDIAL EFFUSION There is no evidence of significant pericardial effusion. Critical Notification Critical Value: No <Conclusion> The systolic function is severely impaired. Estimated ejection fraction 25%. Septal motion suggestive of conduction defect. There is global hypokinesis of the left ventricle. The re is significant RV pressure overload with a D-shaped septum. The right ventricle is severely dilated. RV Systolic function is severely reduced. Doppler and Color Flow revealed mild tricuspid regurgitation. Estimated PAP 58 mmHg. The IVC is dilated and collapses <50% with inspiration. Signed by : Marlon Castillo, Electronically Approved : 02/24/2022 15:45:43
[2022-02-24] MEDS ORDERED: VANCOMYCIN RANDOM LEVEL. MC ONE (16:00)
[2022-02-24] MEDS: PIPERACILLIN/TAZOBACTAM 4.5 GM in IV DEXTROSE 5% 100ML 100 ML IV SCH (17:23)
[2022-02-24 19:07] VITALS: BP 116/72
[2022-02-24] MEDS: ATORVASTATIN CALCIUM 20 MG TABLET PO SCH (21:20)
[2022-02-24] MEDS: LINEZOLID 600 MG TABLET PO SCH (21:20)
[2022-02-24 23:03] VITALS: BP 102/71
[2022-02-24] MEDS: oxyCODONE/APAP 5/325 1 TAB TABLET PO PRN (23:09)
[2022-02-25] VITALS (16 sets, daily range): BP systolic 77–116; BP diastolic 50–73
[2022-02-25 05:24] LABS: CALCIUM 8.3 mg/dL (8.5-10.1); CREATININE 3.1 mg/dL (0.7-1.3); GFR 20.9; POTASSIUM 3.5 mmol/L (3.5-5.1)
[2022-02-25] MEDS: PIPERACILLIN/TAZOBACTAM 4.5 GM in IV DEXTROSE 5% 100ML 100 ML IV SCH ×4 (05:46→15:50)
[2022-02-25] MEDS: SIMETHICONE 80 MG TAB.CHEW PO SCH ×4 (05:46→21:36)
[2022-02-25] MEDS: PANTOPRAZOLE 40 MG TABLET.DR. PO SCH (05:46)
[2022-02-25] MEDS: IPRATRPIUM/ALBUTEROL 0.5/2.5MG 3 ML NEBU. NEB SCH ×4 (07:55→20:45)
--- NOTE | 2022-02-25 08:46 | PDOC ---
Provider Note Date of Service: DATE: 02/25/22 TIME: 08:38 Provider Note Provider Note Vascular update: We are following for left 4th toe dry gangrene. Pt has no complaints today. Remains on Bipap. In no distress. Feet are warm and pink, other than left 4th toe with is dry gangrene without surrounding erythema or drainage. His Cr increased today to 3.1. A/P: LUIS on CKD PAD Toe remains stable. Cr worsened today. We will continue to follow peripherally while pt continues to get medically optimized prior to AARO first, with toe amp to follow optimization of circulation. This is not urgent. Justicifation of Admission Dx: Justifications for Admission: Justification of Admission Dx: Yes Respiratory Failure: Severe Resp Distress SHAWN GREEN Feb 25, 2022 08:45
[2022-02-25] MEDS: ASPIRIN ENTERIC COATED 81 MG TABLET.DR. PO SCH (08:59)
[2022-02-25] MEDS: APIXABAN 5 MG TABLET. PO SCH ×2 (09:00→21:33)
[2022-02-25] MEDS: LINEZOLID 600 MG TABLET PO SCH ×2 (09:00→21:33)
[2022-02-25] MEDS: DOCUSATE SODIUM 100 MG CAPSULE. PO SCH (09:00)
[2022-02-25] MEDS: MAGNESIUM OXIDE 400 MG TABLET PO SCH (09:00)
[2022-02-25] MEDS: LACTOBACILLUS RHAMNOSUS GG 1 CAPSULE. PO SCH ×2 (09:00→21:33)
--- NOTE | 2022-02-25 09:17 | PDOC ---
DATE OF SERVICE DATE: 02/25/22 TIME: 09:17 SUBJECTIVE ROS No acute concerns, Stable OBJECTIVE Vital Signs Vital Signs Date Time Temp Pulse Resp B/P (MAP) Pulse Ox O2 Delivery O2 Flow Rate FiO2 02/25/22 09:00 94 104/68 02/25/22 07:55 94 BiPAP/CPAP 02/25/22 07:00 96.6 18 45.0 96.6 I & 0 Intake and Output 02/25/22 07:00 Intake Total 2100 ml Output Total 2825 ml Balance -725 ml Intake Oral 1800 ml IV Total 300 ml Output Urine Total 2825 ml PHYSICAL EXAM Physical Exam General: Alert, Oriented X3, Mild distress, HEENT: Atraumatic, PERRLA, On O2 by NC Neck Supple Lungs: Decreased at bases ant, Heart: irregularly irregular, Abdomen: Normal bowel sounds, Obese Extremities: edema +, Changes of CVI +; left foot there is black dry gangrene of the fourth toe, no surrounding erythema or drainage Skin: No rash Neuro: Grossly normal , moving al extrem Psych/Mental Status: cooperative Lyons +, No CVA or SP tenderness DIAGNOSIS/ASSESSMENT Assessment & Plan LUIS Cardiorenal/ ATN / Renal US unremarkable .Non Oliguric, Creat Trending up, didnt Plateau Supportive care , maintain fluid balance., avoid overdiuresis Avoid Nephrotoxins (was getting IV Vanc ) Baseline Cr 0.7-0.9; 1.1 since Nov 2021- hospitalized at [facility] Microscopic hematuria- UA with Blood and RBC's repeat same - - Lyons sample UA in May 2021 Unremarkable . Proteunuria- nephrotic range- Lyons sample , Uncontrolled DM history . Discussed Bx with patient - may or not change control coordinator chacha due to multiple co- morbidities . Hold off Renal Bx if active Infection/Bacteremia , On Bipap as well. . If patient is able to lie prone for Bx and cleared by ID can schedule for Kidney Bx . Hold anticoagulation including ASA Discussed with Dr Grajeda Acute hypoxic/hypercapnic respiratory failure requiring BiPAP support- Uses O2 and Bipap at home as well(Non compliant) Blood culture have polymicrobial infection. ID consulted CHF- card managing diuretics . Rt heart cath - verbal report No e/o Vol Overl oad, has significant Pulm HTN Dry gangrene of the left fourth toe. Will need Amputation, Non Urgent . Discussed with Dr Martinez, planning to hold for now 2/2 LUIS, Non urgent History of COPD History of diabetes mellitus type 2 History of tobacco misuse COMMENT/RELEVANT DATA Meds Current Medications Medications (Trade) Dose Ordered Sig/Theresa Start Time Stop Time Status Last Admin Dose Admin Acetaminophen (Tylenol) 650 mg PRN Q4HRS PRN 02/19/22 14:45 Adenosine (Adenoscan) 90 mg STK-MED ONCE 02/23/22 14:32 02/23/22 14:33 DC Albuterol Sulfate (Ventolin Neb Soln) 2.5 mg PRN Q4HRS PRN 02/19/22 14:45 02/21/22 00:00 2.5 MG Albuterol/ Ipratropium (Duoneb) 3 ml RTQID 02/19/22 16:00 02/25/22 07:55 3 ML Apixaban (Eliquis) 5 mg BID 02/24/22 13:00 02/25/22 09:00 5 MG Aspirin (Ecotrin) 81 mg [id number] 02/21/22 15:00 02/25/22 08:59 81 MG Atorvastatin Calcium (Lipitor) 20 mg QHS 02/19/22 21:00 02/24/22 21:20 20 MG Digoxin (Lanoxin) 500 mcg 1X ONCE 02/20/22 11:30 02/20/22 11:31 DC 02/20/22 11:30 500 MCG Diltiazem HCl (Cardizem 24hr Cd) 240 mg DAILY 02/20/22 09:00 02/25/22 09:00 240 MG Docusate Sodium (Colace) 100 mg DAILY 02/20/22 09:00 02/23/22 09:18 100 MG Furosemide (Lasix) 120 mg DAILY 02/20/22 09:00 02/20/22 14:09 DC 02/20/22 13:10 120 MG Heparin Sodium (Porcine) (Heparin Sodium) 2,500 unit 1X ONCE 02/23/22 14:30 02/23/22 14:34 DC 02/23/22 14:30 2,500 UNIT Heparin Sodium/ Dextrose 250 ml @ 10 mls/hr CONT PRN 02/20/22 19:45 02/24/22 12:40 DC 02/24/22 08:57 30.1 MLS/HR Heparin Sodium/ Sodium Chloride (HEPARIN for ARTERIAL LINE FLUSH) 1,000 unit 1X ONCE 02/23/22 14:15 02/23/22 14:23 DC 02/23/22 14:15 1,000 UNIT Info (Anti-Coagulation Monitoring By Pharmacy) 1 each PRN DAILY PRN 02/19/22 15:15 02/23/22 16:38 1 EACH Lactobacillus Rhamnosus (Culturelle) 1 cap BID 02/20/22 09:00 02/25/22 09:00 1 CAP Lidocaine HCl (Lidocaine 1% 20ml Vial) 20 ml STK-MED ONCE 02/23/22 13:25 02/23/22 13:26 DC Lidocaine HCl (Lidocaine 2% 20ml Vial) 2 ml 1X ONCE 02/23/22 14:15 02/23/22 14:24 DC 02/23/22 14:15 3 ML Linezolid (Zyvox) 600 mg BID 02/24/22 21:00 02/25/22 09:00 600 MG Magnesium Oxide (Magnesium Oxide) 400 mg DAILY 02/20/22 09:00 02/25/22 09:00 400 MG Nitroglycerin (Nitroglycerin) 200 mcg 1X ONCE 02/23/22 14:30 02/23/22 14:34 DC 02/23/22 14:30 200 MCG Oxycodone/ Acetaminophen (Percocet 5/325) 1 tab PRN Q4HRS PRN 02/20/22 23:30 02/24/22 23:09 1 TAB Pantoprazole Sodium (Protonix) 40 mg DAILYAC 02/20/22 07:30 02/25/22 05:46 40 MG Perflutren Protein Type A Microsphe (Optison) 0.66 mg 1X ONCE 02/24/22 07:00 02/24/22 07:01 DC 02/24/22 07:00 0.66 MG Piperacillin Sod/ Tazobactam Sod (Zosyn Per Pharmacy) 1 each PRN DAILY PRN 02/19/22 17:15 Piperacillin Sod/ Tazobactam Sod 3.375 gm/Sodium Chloride 50 ml @ 100 mls/hr Q6HRS 02/19/22 18:00 02/24/22 14:50 DC 02/24/22 11:33 100 MLS/HR Piperacillin Sod/ Tazobactam Sod 4.5 gm/Dextrose 100 ml @ 200 mls/hr Q6HRS 02/24/22 18:00 02/25/22 05:46 200 MLS/HR Simethicone (Gas-X) 40 mg Q6HRS 02/19/22 18:00 02/25/22 05:46 40 MG Vancomycin HCl (Vanco Per Pharmacy) 1 each PRN DAILY PRN 02/23/22 12:30 02/24/22 13:49 DC 02/23/22 14:16 1 EACH Vancomycin HCl (Vancomycin Random Level) 1 each 1X ONCE 02/24/22 16:00 02/24/22 16:01 Cancel Vancomycin HCl 2 gm/Sodium Chloride 500 ml @ 250 mls/hr 1X ONCE 02/23/22 13:00 02/23/22 14:59 DC 02/23/22 16:08 250 MLS/HR Verapamil HCl (Verapamil) 2.5 mg 1X ONCE 02/23/22 14:30 02/23/22 14:34 DC 02/23/22 14:30 2.5 MG Lab Laboratory Tests Test 02/24/22 10:19 02/24/22 11:29 02/24/22 16:35 02/24/22 17:45 Activated Partial Thromboplast Time 75 SEC (24-38) 32 SEC (24-38) Glucose (Fingerstick) 111 mg/dL (70-99) 121 mg/dL (70-99) Test 02/24/22 20:31 02/25/22 03:20 02/25/22 08:00 Glucose (Fingerstick) 137 mg/dL (70-99) 111 mg/dL (70-99) Sodium Level 134 mmol/L (136-145) Potassium Level 3.5 mmol/L (3.5-5.1) Chloride Level 96 mmol/L (98-107) Carbon Dioxide Level 33 mmol/L (21-32) Anion Gap 5 (6-14) Blood Urea Nitrogen 37 mg/dL (8-26) Creatinine 3.1 mg/dL (0.7-1.3) Estimated GFR (Cockcroft-Gault) 20.9 Glucose Level 106 mg/dL (70-99) Calcium Level 8.3 mg/dL (8.5-10.1) Results All relevant outside records, renal labs, imaging studies, telemetry/EKG's were reviewed. Justicifation of Admission Dx: Justifications for Admission: Justification of Admission Dx: Yes Respiratory Failure: Severe Resp Distress BLAS ORR MD Feb 25, 2022 09:17
--- NOTE | 2022-02-25 10:03 | PDOC ---
PULMONARY PROGRESS NOTES DATE: 02/25/22 TIME: 10:00 Subjective Patient is up to the chair today, currently off BiPAP. On 10 L nasal cannula denies shortness of breath, Vitals Vital Signs Date Time Temp Pulse Resp B/P (MAP) Pulse Ox O2 Delivery O2 Flow Rate FiO2 02/25/22 09:00 94 104/68 02/25/22 07:55 94 BiPAP/CPAP 02/25/22 07:00 96.6 18 45.0 96.6 ROS: No Nausea, No Chest Pain, No Abdominal Pain, No Increase Cough General: Alert, Oriented X4, No acute distress HEENT: Other Lungs: Other (Decreased breath sounds bilaterally) Cardiovascular: S1, S2 Abdomen: Soft, Non-tender Extremities: Other (2+ pitting edema and signs of venous stasis.) Skin: Warm, Dry Labs Laboratory Tests Test 02/23/22 11:35 02/23/22 16:58 02/23/22 20:00 02/23/22 20:59 Glucose (Fingerstick) 140 mg/dL (70-99) 110 mg/dL (70-99) 162 mg/dL (70-99) Activated Partial Thromboplast Time 61 SEC (24-38) Test 02/24/22 02:40 02/24/22 04:15 02/24/22 07:20 02/24/22 10:19 Activated Partial Thromboplast Time 76 SEC (24-38) 75 SEC (24-38) Sodium Level 137 mmol/L (136-145) Potassium Level 3.7 mmol/L (3.5-5.1) Chloride Level 98 mmol/L (98-107) Carbon Dioxide Level 31 mmol/L (21-32) Anion Gap 8 (6-14) Blood Urea Nitrogen 35 mg/dL (8-26) Creatinine 2.7 mg/dL (0.7-1.3) Estimated GFR (Cockcroft-Gault) 24.6 Glucose Level 116 mg/dL (70-99) Calcium Level 8.1 mg/dL (8.5-10.1) Phosphorus Level 5.3 mg/dL (2.6-4.7) Albumin 1.7 g/dL (3.4-5.0) Glucose (Fingerstick) 123 mg/dL (70-99) Test 02/24/22 11:29 02/24/22 16:35 02/24/22 17:45 02/24/22 20:31 Glucose (Fingerstick) 111 mg/dL (70-99) 121 mg/dL (70-99) 137 mg/dL (70-99) Activated Partial Thromboplast Time 32 SEC (24-38) Test 02/25/22 03:20 02/25/22 08:00 Sodium Level 134 mmol/L (136-145) Potassium Level 3.5 mmol/L (3.5-5.1) Chloride Level 96 mmol/L (98-107) Carbon Dioxide Level 33 mmol/L (21-32) Anion Gap 5 (6-14) Blood Urea Nitrogen 37 mg/dL (8-26) Creatinine 3.1 mg/dL (0.7-1.3) Estimated GFR (Cockcroft-Gault) 20.9 Glucose Level 106 mg/dL (70-99) Calcium Level 8.3 mg/dL (8.5-10.1) Glucose (Fingerstick) 111 mg/dL (70-99) Laboratory Tests Test 02/24/22 10:19 02/24/22 11:29 02/24/22 16:35 02/24/22 17:45 Activated Partial Thromboplast Time 75 SEC (24-38) 32 SEC (24-38) Glucose (Fingerstick) 111 mg/dL (70-99) 121 mg/dL (70-99) Test 02/24/22 20:31 02/25/22 03:20 02/25/22 08:00 Glucose (Fingerstick) 137 mg/dL (70-99) 111 mg/dL (70-99) Sodium Level 134 mmol/L (136-145) Potassium Level 3.5 mmol/L (3.5-5.1) Chloride Level 96 mmol/L (98-107) Carbon Dioxide Level 33 mmol/L (21-32) Anion Gap 5 (6-14) Blood Urea Nitrogen 37 mg/dL (8-26) Creatinine 3.1 mg/dL (0.7-1.3) Estimated GFR (Cockcroft-Gault) 20.9 Glucose Level 106 mg/dL (70-99) Calcium Level 8.3 mg/dL (8.5-10.1) Medications Active Scripts Medications Dose Route/Sig Max Daily Dose Days Date Category Simethicone 80 Mg Tab.chew 0.5 Tab PO Q6HRS 10 12/19/21 Rx Insulin Lispro Kwikpen U-100 (Insulin Lispro) 100 Unit/1 Ml Insuln.pen 0-9 Unit SQ TIDACHC 30 12/19/21 Rx Potassium Chloride (Potassium Chloride) 20 Meq Tablet.er 20 Meq PO DAILYWBKFT 30 12/19/21 Rx Pantoprazole Sodium (Pantoprazole Sodium) 40 Mg Tablet.dr 40 Mg PO DAILYAC 30 12/19/21 Rx Colace (Docusate Sodium) 100 Mg Capsule 100 Mg PO DAILY 30 12/19/21 Rx Magnesium Oxide 400 Mg Tablet 400 Mg PO DAILY 30 12/19/21 Rx Acetaminophen 325 Mg Tablet 650 Mg PO PRN Q4HRS PRN 30 12/19/21 Rx Atorvastatin Calcium 20 Mg Tablet 20 Mg PO QHS 30 12/19/21 Rx Furosemide 40 Mg Tablet 3 Tab PO DAILY 12/03/21 Reported Eliquis (Apixaban) 5 Mg Tablet 5 Mg PO BID 30 09/30/21 Rx Diltiazem 24Hr Cd (Diltiazem HCl) 240 Mg Cap.er.24h 240 Mg PO DAILY 30 09/30/21 Rx Advair 500-50 Diskus (Fluticasone/Salmeterol) 1 Each Disk.w.dev 1 Puff INH BID 09/24/21 Reported Albuterol Sulfate Neb Soln (Albuterol Sulfate) 2.5 Mg/3 Ml Vial.neb 2.5 Mg NEB PRN Q4-6HRS PRN 06/12/21 Reported Glyxambi 25 mg-5 mg Tablet (Empagliflozin/Linagliptin) 1 Each Tablet 1 Each PO DAILY 01/03/21 Reported [Albuterol Sulfate] 2.5 MG/3 ML Nebu 2.5 Mg NEB PRN Q2HR PRN 09/26/14 Rx Metformin Hcl Er (Metformin Hcl) 500 Mg Tab.er.24 500 Mg PO BID 11/26/13 Reported Lisinopril 5 Mg Tablet 10 Mg PO DAILY 11/26/13 Reported Spiriva (Tiotropium [place]) 18 Mcg Cap.w.dev 18 Mcg IH DAILY 11/26/13 Reported Comments Chest x-ray reviewed 02/24/2020. Shows improving pleural effusions and CHF Impression . IMPRESSION: 1. Acute on chronic hypercapnic and hypoxic respiratory failure secondary to acute on chronic cor pulmonale, component of diastolic congestive heart failure and acute exacerbation of chronic obstructive pulmonary disease. 2. Abnormal chest x-ray revealed increasing bilateral interstitial infiltrates and pleural effusions consistent with heart failure. It is combination of diastolic congestive heart failure and acute on chronic right heart failure. 3. Underlying severe chronic obstructive pulmonary disease with chronic hypercapnia and chronic hypoxic respiratory failure. 4. Underlying obesity, hypoventilation syndrome and cor pulmonale. obstructive sleep apnea. 5. Chronic kidney disease. Recent acute decompensation. 6. Paroxysmal atrial fibrillation. On chronic anticoagulation. 7. Severe protein-calorie malnutrition. Plan . Continue supplemental oxygen to keep oxygen saturations greater than 90%, patient is currently on BiPAP nightly and alternating with 10 L nasal cannula during the day. I have reviewed right heart cath findings recently with Dr. Denis. Patient has severe pulmonary hypertension. Patient has normal pulmonary capillary wedge pressure and left ventricular end-diastolic pressure. There was no response to adenosine. Patient's severe pulmonary hypertension is multifactorial and includes combination of severe COPD, obesity hypoventilation syndrome and obstructive sleep apnea. Patient would, however benefit from addition of vasodilator therapy. It will be arranged as an outpatient. In the meantime patient would be a candidate for trilogy nocturnal ventilator. Patient should be further evaluated for LTAC Bronchodilators Follow chest x-ray improving.. Follow nephrology recommendations in regards to LUIS on CKD, avoid nephrotoxic medications, worsening creatinine. Consider fluid challenge. Heparin per vascular surgery recommendations. May need to amputations in future Physical therapy/Occupational Therapy DVT/GI prophylaxis Discussed with IRAIS SPANN MD Feb 25, 2022 10:03
--- NOTE | 2022-02-25 10:41 | PDOC ---
[facility] PROGRESS NOTE Date of Service DOS: DATE: 02/25/22 TIME: 10:35 Chief Complaint Chief Complaint Acute hypoxic/hypercapnic respiratory failure requiring BiPAP support Abnormal CXR - possible gram-negative organisms possible aspiration Left 2nd toe ulcer - polymicrobial with pseudomonas, MRSA, enterococcus requiring multiple IV antibiotics Acute renal failure - vasomotor nephropathy. Prior Cr 1 2 months ago. Acute electrolyte derangementhyponatremia, likely hypervolemic Acute on chronic respiratory acidosis Lactic acidemia Elevated BNP suggestive of volume overload History of COPD History of diabetes mellitus type 2 History of tobacco misuse Severe pulmonary hypertension - WHO classes COPD and diastolic CHF, previously negative CTPA in August 2021. VQ scan to r/o chronic venous thrombo-embolism and autoimmune disorder workup not yet complete due to acute medical illness Plan: Continue supplemental oxygen to keep oxygen saturations greater than 90%, patient is currently on BiPAP nightly and alternating with 10 L nasal cannula during the day. likely needs vasodilator therapy. Needs eval for trilogy nocturnal ventilator. Patient should be further evaluated for LTAC Bronchodilators Follow chest x-ray improving.. Follow nephrology recommendations in regards to LUIS on CKD, avoid nephrotoxic medications, worsening creatinine. Consider fluid challenge. Heparin per vascular surgery recommendations. May need to amputations in future Physical therapy/Occupational Therapy DVT/GI prophylaxis Discussed with RN History of Present Illness History of Present Illness Mr Pelayo is a 57-year-old male with past medical history of CHF, COPD on 6 L home O2, diabetes mellitus 2 who comes in with shortness of breath for the past several weeks. The past few days has worsened to the point where he needed to come to the ED for further evaluation. Patient is on torsemide at home for his CHF. He is little confused and so dyspneic with NT proBNP greater than 13,000 dyspnea did improve with initial diuresis and increasing supplemental O2 and was placed on BiPAP with improvement and admitted for further care. 02/20: Overnight continued on BiPAP 14/7 with a 16rr, 60% FiO2 with ABG 7.2 96/64/88. Seen by podiatry for consideration of left second toe amputation and cardiology for consideration for aortogram with runoff given monophasic findings on left lower extremity arterial Doppler with no clear occlusive disease in the lower extremity. Shortness of breath and cough conversational dyspnea. Is able to talk through his BiPAP. No significant chest discomfort currently. 02/21: Seen on BiPAP 40% this morning. Has conversational dyspnea but otherwise he feels the shortness of breath improving. CR 2.6. No chest pain. Polymicrobial infection in his toe. 02/22/2022: No acute events overnight. Patient seen examined on commode. No dyspnea upon my encounter. Still on BiPAP at 40% and saturating 95%. Maintain saturation between 90 to 92%. Patient's chart, labs, images were reviewed and discussed with RN Consults: Cardiology, pulmonology, podiatry, vascular surgery 02/23: Patient evaluated examined at bedside. Up in chair on BiPAP. Said breathing does feel little bit improved but still pretty bad. Creatinine still elevated. Possible heart cath today. Discussed with bedside RN. 02/24: Patient evaluated examined at bedside. Resting in bed. Labored respirations. Reviewed blood culture results does have polymicrobial infection. Will consult ID today. Reviewed heart cath results and recommendations. May need transfer. Discussed with him oxygen requirement as well. He was on 6 L nasal cannula when I saw him does report he sometimes has to push up to 8 or 9 L at home. Also says his BiPAP is not working at home. Not clinically ready for discharge at this point. 02/25: Seen bedside. Taken off of BiPAP to breakfast requiring 2 L/min nasal cannula oxygen. He still has conversational dyspnea severe pulmonary hypertension per right heart catheterization with cardiology. Needs to continue with his pulmonary hypertension follow-up BP high risk for surgery though he does require eventual amputation of his fourth left toe due to his respiratory status being very tenuous this to be difficult. He is going to require long-term IV antibiotics and BiPAP and likely needs a trilogy device. He should be evaluated for LTACH. Vitals/I&O Vitals/I&O: Vital Signs Date Time Temp Pulse Resp B/P (MAP) Pulse Ox O2 Delivery O2 Flow Rate FiO2 02/25/22 09:00 94 104/68 02/25/22 08:00 Nasal Cannula 10.0 02/25/22 07:55 94 02/25/22 07:00 96.6 18 96.6 I & O 02/24/22 02/24/22 02/25/22 15:00 23:00 07:00 Intake Total 400 ml 900 ml 800 ml Output Total 600 ml 1100 ml 1125 ml Balance -200 ml -200 ml -325 ml Physical Exam General: Alert, Oriented X3, Cooperative Heart: Regular rate, Normal S1, Normal S2 Lungs: Other (Decreased breath sounds bilaterally) Abdomen: Normal bowel sounds, Soft, Other (Obese) Extremities: No clubbing, No cyanosis, Other (Bilateral lower extremity pitting edema) Skin: Other (Dry gangrene of the left fourth toe, no cellulitis, no drainage, no purulence, no malodor) Labs Labs: Laboratory Tests Test 02/24/22 11:29 02/24/22 16:35 02/24/22 17:45 02/24/22 20:31 Glucose (Fingerstick) 111 mg/dL (70-99) 121 mg/dL (70-99) 137 mg/dL (70-99) Activated Partial Thromboplast Time 32 SEC (24-38) Test 02/25/22 03:20 02/25/22 08:00 Sodium Level 134 mmol/L (136-145) Potassium Level 3.5 mmol/L (3.5-5.1) Chloride Level 96 mmol/L (98-107) Carbon Dioxide Level 33 mmol/L (21-32) Anion Gap 5 (6-14) Blood Urea Nitrogen 37 mg/dL (8-26) Creatinine 3.1 mg/dL (0.7-1.3) Estimated GFR (Cockcroft-Gault) 20.9 Glucose Level 106 mg/dL (70-99) Calcium Level 8.3 mg/dL (8.5-10.1) Glucose (Fingerstick) 111 mg/dL (70-99) Assessment and Plan Assessmemt and Plan Problems Medical Problems: (1) Acute exacerbation of CHF (congestive heart failure) Status: Acute (2) Acute kidney injury Status: Acute (3) Hypoxia Status: Acute Comment Review of Relevant I have reviewed the following items wade (where applicable) has been applied. Medications: Current Medications Medications (Trade) Dose Ordered Sig/Theresa Route PRN Reason Start Time Stop Time Status Last Admin Dose Admin Apixaban (Eliquis) 5 mg BID PO 02/24/22 13:00 02/25/22 09:00 Linezolid (Zyvox) 600 mg BID PO 02/24/22 21:00 02/25/22 09:00 Piperacillin Sod/ Tazobactam Sod 4.5 gm/Dextrose 100 ml @ 200 mls/hr Q6HRS IV 02/24/22 18:00 02/25/22 05:46 Justifications for Admission Other Justification Acute hypoxemic respiratory failure ABY GUERIN MD Feb 25, 2022 10:40
--- NOTE | 2022-02-25 10:45 | NUR ---
SS following up with discharge planning. SS reviewed pt chart and discussed with pt RN. Pt is currently requiring oxygen at ten liters nasal canula and BIPAP PRN. Pt has home BIPAP and home oxygen. COVID19 pending. Pt on IV Zosyn and PO Zyvox. PT/OT ordered. Physicians requesting referral to [facility], ; fax [phone]. Referral phoned and faxed as requested. SS will continue to follow for discharge planning.
--- NOTE | 2022-02-25 12:00 | PDOC ---
ULISES HOUGH ACCOUNT LIAISON 02/25/22 1200: CARDIO Progress Notes Date and Time Date of Service 02/25/2022 Time of Evaluation 1110 Subjective Subjective: No Chest Pain, No Palpitations, Other (SOA better) Vitals Vitals Vital Signs Date Time Temp Pulse Resp B/P (MAP) Pulse Ox O2 Delivery O2 Flow Rate FiO2 02/25/22 11:37 90 BiPAP/CPAP 02/25/22 11:00 97.9 74 18 99/63 (75) 10.0 97.9 Weight Weight [ ] Input and Output Intake and Output Intake and Output 02/25/22 07:00 Intake Total 2100 ml Output Total 2825 ml Balance -725 ml Intake Oral 1800 ml IV Total 300 ml Output Urine Total 2825 ml Laboratory Labs Laboratory Tests Test 02/24/22 16:35 02/24/22 17:45 02/24/22 20:31 02/25/22 03:20 Glucose (Fingerstick) 121 mg/dL (70-99) 137 mg/dL (70-99) Activated Partial Thromboplast Time 32 SEC (24-38) Sodium Level 134 mmol/L (136-145) Potassium Level 3.5 mmol/L (3.5-5.1) Chloride Level 96 mmol/L (98-107) Carbon Dioxide Level 33 mmol/L (21-32) Anion Gap 5 (6-14) Blood Urea Nitrogen 37 mg/dL (8-26) Creatinine 3.1 mg/dL (0.7-1.3) Estimated GFR (Cockcroft-Gault) 20.9 Glucose Level 106 mg/dL (70-99) Calcium Level 8.3 mg/dL (8.5-10.1) Test 02/25/22 08:00 02/25/22 11:21 Glucose (Fingerstick) 111 mg/dL (70-99) 148 mg/dL (70-99) Microbiology Micro Microbiology 02/21/22 Urine Culture - Final, Complete 02/19/22 Gram Stain - Final, Complete 02/19/22 Aerobic and Anaerobic Culture - Final, Complete Pseudomonas Aeruginosa Enterococcus Faecalis Staphylococcus Aureus (Mrsa) 02/19/22 Blood Culture - Final, Complete NO GROWTH AFTER 5 DAYS Physical Exam HEENT: Neck Supple W Full Motion Chest: Symmetric LUNGS: Other (diminished, off bipap) Heart: irregularly irregular (AFIB) Abdomen: Soft N/T, Other (obese) Extremities: Other (3+ bilateral LE pitting edema, venous dermatitis) Neurology: alert, oriented, follow commands Assessment Assessment 1. Acute on chronic hypercapnic respiratory failure, AECOPD, CHF, cor pulmonale 2. Acute on chronic diastolic/systolic CHF: SOA better 3. Persistent AFIB with RVR: now controlled 4. DM2: per PCP 5. Hypertension: controlled 6. HLP 7. BALTA, obesity hypoventilation syndrome: poor bipap compliance, last use was 3 weeks ago 8. CAD; recent Moderate single-vessel coronary artery disease to LAD 9. LLE PAD with noted neuropathy and left 4th toe gangrene: stub toe [address] Hutson and Dr. Griggs following 10. LUIS: Cr up to 3.1. nephrology following 11. Severe pulmonary HTN/cor pulmonale: nml left sided filling pressure per RHC 12. NICM: potentially tachy mediated Recommendations Bipap Suspect cardiorenal element. Will start on milrinone then will diurese accordingly Continue PO cardizem eliquis for stroke prevention Secondary prevention measures He has failed to follow up in office x2 and further failed to use his BiPAP but reported med compliance including eliquis. Discussed treatment adherance. He was suppose to be set for CVN as an outpt but failed to f/u with Dr. Rothman. Will consider for CVN as an inpt. Ongoing lung optimization. Referral for outpt pulmonary HTN management. Justicifation of Admission Dx: Justifications for Admission: Justification of Admission Dx: Yes Respiratory Failure: Severe Resp Distress JENNIFFER ROTHMAN MD 02/25/22 1646: CARDIO Progress Notes Assessment Assessment Patient seen and examined. Agree with A AND P TECHNICIAN's assessment and plan. Acute respiratory failure secondary to combination of acute COPD exacerbation, acute on chronic combined systolic and diastolic heart failure and severe pulmonary hypertension Patient presently needing BiPAP. Pulmonary team following. Agree with starting milrinone infusion for inotropic support and continue diuresis Persistent atrial fibrillation rate controlled Continue Eliquis for stroke prophylaxis We will consider cardioversion once respiratory status improves ULISES HOUGH APRN Feb 25, 2022 12:00 JENNIFFER ROTHMAN MD Feb 25, 2022 16:46
[2022-02-25] MEDS: MILRINONE 20MG/100ML PREMIX 100 ML IV PRN (12:35)
--- NOTE | 2022-02-25 13:04 | PDOC ---
Infectious Disease Note Subjective Subjective pt is feeling ok still on BiPAP ROS ROS No nausea vomiting diarrhea fever Vital Sign Vital Signs Vital Signs Date Time Temp Pulse Resp B/P (MAP) Pulse Ox O2 Delivery O2 Flow Rate FiO2 02/25/22 11:37 90 BiPAP/CPAP 02/25/22 11:00 97.9 74 18 99/63 (75) 10.0 97.9 Physical Exam PHYSICAL EXAM GENERAL: Alert, oriented gentleman, not in distress. VITAL SIGNS: Stable, afebrile. HEENT: NAD. NECK: Supple, no JVP, no lymphadenopathy. LUNGS: Clear. HEART: S1, S2, regular. ABDOMEN: Soft, nontender, no organomegaly. EXTREMITIES: Dry, cracked skin all over with venous insufficiency, stasis dermatitis, left fourth toe is gangrenous, it is dry gangrene; edema 2+; peripheral pulses not palpable secondary to edema. Rest of the skin exam is unremarkable. NEUROLOGIC: The patient is alert, awake, and appropriate. No focal neurologic deficit. Labs Lab Laboratory Tests Test 02/24/22 16:35 02/24/22 17:45 02/24/22 20:31 02/25/22 03:20 Glucose (Fingerstick) 121 mg/dL (70-99) 137 mg/dL (70-99) Activated Partial Thromboplast Time 32 SEC (24-38) Sodium Level 134 mmol/L (136-145) Potassium Level 3.5 mmol/L (3.5-5.1) Chloride Level 96 mmol/L (98-107) Carbon Dioxide Level 33 mmol/L (21-32) Anion Gap 5 (6-14) Blood Urea Nitrogen 37 mg/dL (8-26) Creatinine 3.1 mg/dL (0.7-1.3) Estimated GFR (Cockcroft-Gault) 20.9 Glucose Level 106 mg/dL (70-99) Calcium Level 8.3 mg/dL (8.5-10.1) Test 02/25/22 08:00 02/25/22 11:21 Glucose (Fingerstick) 111 mg/dL (70-99) 148 mg/dL (70-99) Micro Microbiology 02/21/22 Urine Culture - Final, Complete 02/19/22 Gram Stain - Final, Complete 02/19/22 Aerobic and Anaerobic Culture - Final, Complete Pseudomonas Aeruginosa Enterococcus Faecalis Staphylococcus Aureus (Mrsa) 02/19/22 Blood Culture - Final, Complete NO GROWTH AFTER 5 DAYS Objective Assessment IMPRESSION: 1. Left fourth toe gangrene with osteomyelitis. 2. Chronic obstructive pulmonary disease . 3. Congestive heart failure. 4. Coronary artery disease. 5. Atrial fibrillation. 6. Renal insufficiency. Plan Plan of Care Continue antibiotics [facility] RONA NUGENT MD Feb 25, 2022 13:04
[2022-02-25] MEDS: PIPERACILLIN/TAZOBACTAM 3.375 GM in IV NORMAL SALINE 50ML 50 ML IV SCH (17:09)
[2022-02-25] MEDS: ATORVASTATIN CALCIUM 20 MG TABLET PO SCH (21:33)
[2022-02-25] MEDS: oxyCODONE/APAP 5/325 1 TAB TABLET PO PRN (21:36)
[2022-02-26] VITALS (17 sets, daily range): BP systolic 99–118; BP diastolic 51–70
[2022-02-26] MEDS: PIPERACILLIN/TAZOBACTAM 3.375 GM in IV NORMAL SALINE 50ML 50 ML IV SCH ×2 (00:17→05:30)
[2022-02-26] MEDS: MILRINONE 20MG/100ML PREMIX 100 ML IV PRN ×2 (05:31→20:55)
[2022-02-26] MEDS: SIMETHICONE 80 MG TAB.CHEW PO SCH ×3 (05:31→16:51)
[2022-02-26] MEDS: PANTOPRAZOLE 40 MG TABLET.DR. PO SCH (05:31)
[2022-02-26 05:44] LABS: GFR 21.8; POTASSIUM 3.7 mmol/L (3.5-5.1)
[2022-02-26] MEDS: IPRATRPIUM/ALBUTEROL 0.5/2.5MG 3 ML NEBU. NEB SCH ×4 (07:27→21:11)
[2022-02-26] MEDS: LINEZOLID 600 MG TABLET PO SCH ×2 (08:56→20:52)
[2022-02-26] MEDS: MAGNESIUM OXIDE 400 MG TABLET PO SCH (08:56)
[2022-02-26] MEDS: ASPIRIN ENTERIC COATED 81 MG TABLET.DR. PO SCH (08:56)
[2022-02-26] MEDS: DOCUSATE SODIUM 100 MG CAPSULE. PO SCH (08:56)
[2022-02-26] MEDS: APIXABAN 5 MG TABLET. PO SCH ×2 (08:56→20:50)
[2022-02-26] MEDS: LACTOBACILLUS RHAMNOSUS GG 1 CAPSULE. PO SCH ×2 (08:57→20:50)
--- NOTE | 2022-02-26 09:14 | PDOC ---
DATE OF SERVICE DATE: 02/26/22 TIME: 09:14 SUBJECTIVE ROS No acute concerns, Stable . On BiPAP when seen. . Card planning for cardioversion tomorrow. OBJECTIVE Vital Signs Vital Signs Date Time Temp Pulse Resp B/P (MAP) Pulse Ox O2 Delivery O2 Flow Rate FiO2 02/26/22 08:57 80 103/62 02/26/22 07:27 92 BiPAP/CPAP 02/26/22 07:00 96.9 18 50.0 96.9 I & 0 Intake and Output 02/26/22 07:00 Intake Total 1151 ml Output Total 2150 ml Balance -999 ml Intake Oral 940 ml IV Total 211 ml Output Urine Total 2150 ml PHYSICAL EXAM Physical Exam General: Alert, Oriented X3, Mild distress, HEENT: Atraumatic, PERRLA, On O2 by NC Neck Supple Lungs: Decreased at bases ant, Heart: irregularly irregular, Abdomen: Normal bowel sounds, Obese Extremities: edema +, Changes of CVI +; left foot there is black dry gangrene of the fourth toe, no surrounding erythema or drainage Skin: No rash Neuro: Grossly normal , moving al extrem Psych/Mental Status: cooperative Lyons +, No CVA or SP tenderness DIAGNOSIS/ASSESSMENT Assessment & Plan LUIS Cardiorenal/ ATN / Renal US unremarkable .Non Oliguric, Creat stable Supportive care , maintain fluid balance., avoid overdiuresis Avoid Nephrotoxins (was getting IV Vanc ) Baseline Cr 0.7-0.9; 1.1 since Nov 2021- hospitalized at [facility] Microscopic hematuria- UA with Blood and RBC's repeat same - - Lyons sample UA in May 2021 Unremarkable . Proteunuria- nephrotic range- Lyons sample , Uncontrolled DM history . D iscussed Bx with patient - may or not warp changer chacha due to multiple co- morbidities . Multiple comorbidities Infection /Cardiac and Pulm issues .Discussed with Dr Grajeda Acute hypoxic/hypercapnic respiratory failure requiring BiPAP support- Uses O2 and Bipap at home as well(Non compliant) Blood culture have polymicrobial infection. ID managing CHF- card managing diuretics . Rt heart cath - Pulm HTN Persistent AFIB with RVR: Dry gangrene of the left fourth toe. Will need Amputation, Non Urgent . Discussed with Dr Martinez, planning to hold for now 2/2 LUIS, Non urgent History of COPD History of diabetes mellitus type 2 History of tobacco misuse COMMENT/RELEVANT DATA Meds Current Medications Medications (Trade) Dose Ordered Sig/Theresa Start Time Stop Time Status Last Admin Dose Admin Acetaminophen (Tylenol) 650 mg PRN Q4HRS PRN 02/19/22 14:45 Adenosine (Adenoscan) 90 mg STK-MED ONCE 02/23/22 14:32 02/23/22 14:33 DC Albuterol Sulfate (Ventolin Neb Soln) 2.5 mg PRN Q4HRS PRN 02/19/22 14:45 02/21/22 00:00 2.5 MG Albuterol/ Ipratropium (Duoneb) 3 ml RTQID 02/19/22 16:00 02/26/22 07:27 3 ML Apixaban (Eliquis) 5 mg BID 02/24/22 13:00 02/26/22 08:56 5 MG Aspirin (Ecotrin) 81 mg DAILYWBKFT 02/21/22 15:00 02/26/22 08:56 81 MG Atorvastatin Calcium (Lipitor) 20 mg QHS 02/19/22 21:00 02/25/22 21:33 20 MG Digoxin (Lanoxin) 500 mcg 1X ONCE 02/20/22 11:30 02/20/22 11:31 DC 02/20/22 11:30 500 MCG Diltiazem HCl (Cardizem 24hr Cd) 240 mg DAILY 02/20/22 09:00 02/26/22 08:57 240 MG Docusate Sodium (Colace) 100 mg DAILY 02/20/22 09:00 02/26/22 08:56 100 MG Furosemide (Lasix) 120 mg DAILY 02/20/22 09:00 02/20/22 14:09 DC 02/20/22 13:10 120 MG Heparin Sodium (Porcine) (Heparin Sodium) 2,500 unit 1X ONCE 02/23/22 14:30 02/23/22 14:34 DC 02/23/22 14:30 2,500 UNIT Heparin Sodium/ Dextrose 250 ml @ 10 mls/hr CONT PRN 02/20/22 19:45 02/24/22 12:40 DC 02/24/22 08:57 30.1 MLS/HR Heparin Sodium/ Sodium Chloride (HEPARIN for ARTERIAL LINE FLUSH) 1,000 unit 1X ONCE 02/23/22 14:15 02/23/22 14:23 DC 02/23/22 14:15 1,000 UNIT Info (Anti-Coagulation Monitoring By Pharmacy) 1 each PRN DAILY PRN 02/19/22 15:15 02/23/22 16:38 1 EACH Lactobacillus Rhamnosus (Culturelle) 1 cap BID 02/20/22 09:00 02/26/22 08:57 1 CAP Lidocaine HCl (Lidocaine 1% 20ml Vial) 20 ml STK-MED ONCE 02/23/22 13:25 02/23/22 13:26 DC Lidocaine HCl (Lidocaine 2% 20ml Vial) 2 ml 1X ONCE 02/23/22 14:15 02/23/22 14:24 DC 02/23/22 14:15 3 ML Linezolid (Zyvox) 600 mg BID 02/24/22 21:00 02/26/22 08:56 600 MG Magnesium Oxide (Magnesium Oxide) 400 mg DAILY 02/20/22 09:00 02/26/22 08:56 400 MG Milrinone Lactate/ Dextrose 100 ml @ 5.074 mls/ hr CONT PRN 02/25/22 12:00 02/26/22 05:31 5.074 MLS/HR Nitroglycerin (Nitroglycerin) 200 mcg 1X ONCE 02/23/22 14:30 02/23/22 14:34 DC 02/23/22 14:30 200 MCG Oxycodone/ Acetaminophen (Percocet 5/325) 1 tab PRN Q4HRS PRN 02/20/22 23:30 02/25/22 21:36 1 TAB Pantoprazole Sodium (Protonix) 40 mg DAILYAC 02/20/22 07:30 02/26/22 05:31 40 MG Perflutren Protein Type A Microsphe (Optison) 0.66 mg 1X ONCE 02/24/22 07:00 02/24/22 07:01 DC 02/24/22 07:00 0.66 MG Piperacillin Sod/ Tazobactam Sod (Zosyn Per Pharmacy) 1 each PRN DAILY PRN 02/19/22 17:15 Piperacillin Sod/ Tazobactam Sod 3.375 gm/Sodium Chloride 50 ml @ 100 mls/hr Q6HRS 02/25/22 18:00 02/26/22 05:30 100 MLS/HR Piperacillin Sod/ Tazobactam Sod 4.5 gm/Dextrose 100 ml @ 200 mls/hr Q6HRS 02/24/22 18:00 02/25/22 16:25 DC 02/25/22 11:21 200 MLS/HR Simethicone (Gas-X) 40 mg Q6HRS 02/19/22 18:00 02/26/22 05:31 40 MG Vancomycin HCl (Vanco Per Pharmacy) 1 each PRN DAILY PRN 02/23/22 12:30 02/24/22 13:49 DC 02/23/22 14:16 1 EACH Vancomycin HCl (Vancomycin Random Level) 1 each 1X ONCE 02/24/22 16:00 02/24/22 16:01 Cancel Vancomycin HCl 2 gm/Sodium Chloride 500 ml @ 250 mls/hr 1X ONCE 02/23/22 13:00 02/23/22 14:59 DC 02/23/22 16:08 250 MLS/HR Verapamil HCl (Verapamil) 2.5 mg 1X ONCE 02/23/22 14:30 02/23/22 14:34 DC 02/23/22 14:30 2.5 MG Lab Laboratory Tests Test 02/25/22 11:21 02/25/22 17:10 02/25/22 21:05 02/26/22 03:30 Glucose (Fingerstick) 148 mg/dL (70-99) 137 mg/dL (70-99) 118 mg/dL (70-99) Sodium Level 136 mmol/L (136-145) Potassium Level 3.7 mmol/L (3.5-5.1) Chloride Level 98 mmol/L (98-107) Carbon Dioxide Level 31 mmol/L (21-32) Anion Gap 7 (6-14) Blood Urea Nitrogen 38 mg/dL (8-26) Creatinine 3.0 mg/dL (0.7-1.3) Estimated GFR (Cockcroft-Gault) 21.8 Glucose Level 118 mg/dL (70-99) Calcium Level 8.0 mg/dL (8.5-10.1) Test 02/26/22 07:38 Glucose (Fingerstick) 133 mg/dL (70-99) Results All relevant outside records, renal labs, imaging studies, telemetry/EKG's were reviewed. Justicifation of Admission Dx: Justifications for Admission: Justification of Admission Dx: Yes Respiratory Failure: Severe Resp Distress BLAS ORR MD Feb 26, 2022 09:14
--- NOTE | 2022-02-26 09:56 | PDOC ---
PULMONARY PROGRESS NOTES DATE: 02/26/22 TIME: 09:52 Subjective Patient denies any shortness of breath. Patient is back and forth between BiPAP and 10 L nasal cannula. Vitals Vital Signs Date Time Temp Pulse Resp B/P (MAP) Pulse Ox O2 Delivery O2 Flow Rate FiO2 02/26/22 08:57 80 103/62 02/26/22 08:00 Bi-pap 50.0 02/26/22 07:27 92 02/26/22 07:00 96.9 18 96.9 ROS: No Nausea, No Chest Pain, No Abdominal Pain, No Increase Cough General: Alert, Oriented X4, No acute distress HEENT: Other Lungs: Other (Decreased breath sounds bilaterally) Cardiovascular: S1, S2 Abdomen: Soft, Non-tender Extremities: Other (2+ pitting edema and signs of venous stasis.) Skin: Warm, Dry Labs Laboratory Tests Test 02/24/22 10:19 02/24/22 11:29 02/24/22 16:35 02/24/22 17:45 Activated Partial Thromboplast Time 75 SEC (24-38) 32 SEC (24-38) Glucose (Fingerstick) 111 mg/dL (70-99) 121 mg/dL (70-99) Test 02/24/22 20:31 02/25/22 03:20 02/25/22 08:00 02/25/22 11:21 Glucose (Fingerstick) 137 mg/dL (70-99) 111 mg/dL (70-99) 148 mg/dL (70-99) Sodium Level 134 mmol/L (136-145) Potassium Level 3.5 mmol/L (3.5-5.1) Chloride Level 96 mmol/L (98-107) Carbon Dioxide Level 33 mmol/L (21-32) Anion Gap 5 (6-14) Blood Urea Nitrogen 37 mg/dL (8-26) Creatinine 3.1 mg/dL (0.7-1.3) Estimated GFR (Cockcroft-Gault) 20.9 Glucose Level 106 mg/dL (70-99) Calcium Level 8.3 mg/dL (8.5-10.1) Test 02/25/22 17:10 02/25/22 21:05 02/26/22 03:30 02/26/22 07:38 Glucose (Fingerstick) 137 mg/dL (70-99) 118 mg/dL (70-99) 133 mg/dL (70-99) Sodium Level 136 mmol/L (136-145) Potassium Level 3.7 mmol/L (3.5-5.1) Chloride Level 98 mmol/L (98-107) Carbon Dioxide Level 31 mmol/L (21-32) Anion Gap 7 (6-14) Blood Urea Nitrogen 38 mg/dL (8-26) Creatinine 3.0 mg/dL (0.7-1.3) Estimated GFR (Cockcroft-Gault) 21.8 Glucose Level 118 mg/dL (70-99) Calcium Level 8.0 mg/dL (8.5-10.1) Laboratory Tests Test 02/25/22 11:21 02/25/22 17:10 02/25/22 21:05 02/26/22 03:30 Glucose (Fingerstick) 148 mg/dL (70-99) 137 mg/dL (70-99) 118 mg/dL (70-99) Sodium Level 136 mmol/L (136-145) Potassium Level 3.7 mmol/L (3.5-5.1) Chloride Level 98 mmol/L (98-107) Carbon Dioxide Level 31 mmol/L (21-32) Anion Gap 7 (6-14) Blood Urea Nitrogen 38 mg/dL (8-26) Creatinine 3.0 mg/dL (0.7-1.3) Estimated GFR (Cockcroft-Gault) 21.8 Glucose Level 118 mg/dL (70-99) Calcium Level 8.0 mg/dL (8.5-10.1) Test 02/26/22 07:38 Glucose (Fingerstick) 133 mg/dL (70-99) Medications Active Scripts Medications Dose Route/Sig Max Daily Dose Days Date Category Simethicone 80 Mg Tab.chew 0.5 Tab PO Q6HRS 10 12/19/21 Rx Insulin Lispro Kwikpen U-100 (Insulin Lispro) 100 Unit/1 Ml Insuln.pen 0-9 Unit SQ TIDACHC 12/19/21 Rx Potassium Chloride (Potassium Chloride) 20 Meq Tablet.er 20 Meq PO DAILYWBKFT 12/19/21 Rx Pantoprazole Sodium (Pantoprazole Sodium) 40 Mg Tablet.dr 40 Mg PO DAILYAC 30 12/19/21 Rx Colace (Docusate Sodium) 100 Mg Capsule 100 Mg PO DAILY 30 12/19/21 Rx Magnesium Oxide 400 Mg Tablet 400 Mg PO DAILY 30 12/19/21 Rx Acetaminophen 325 Mg Tablet 650 Mg PO PRN Q4HRS PRN 30 12/19/21 Rx Atorvastatin Calcium 20 Mg Tablet 20 Mg PO QHS 30 12/19/21 Rx Furosemide 40 Mg Tablet 3 Tab PO DAILY 12/03/21 Reported Eliquis (Apixaban) 5 Mg Tablet 5 Mg PO BID 30 09/30/21 Rx Diltiazem 24Hr Cd (Diltiazem HCl) 240 Mg Cap.er.24h 240 Mg PO DAILY 30 09/30/21 Rx Advair 500-50 Diskus (Fluticasone/Salmeterol) 1 Each Disk.w.dev 1 Puff INH BID 09/24/21 Reported Albuterol Sulfate Neb Soln (Albuterol Sulfate) 2.5 Mg/3 Ml Vial.neb 2.5 Mg NEB PRN Q4-6HRS PRN 06/12/21 Reported Glyxambi 25 mg-5 mg Tablet (Empagliflozin/Linagliptin) 1 Each Tablet 1 Each PO DAILY 01/03/21 Reported [Albuterol Sulfate] 2.5 MG/3 ML Nebu 2.5 Mg NEB PRN Q2HR PRN 09/26/14 Rx Metformin Hcl Er (Metformin Hcl) 500 Mg Tab.er.24 500 Mg PO BID 11/26/13 Reported Lisinopril 5 Mg Tablet 10 Mg PO DAILY 11/26/13 Reported Spiriva (Tiotropium [place]) 18 Mcg Cap.w.dev 18 Mcg IH DAILY 11/26/13 Reported Comments Chest x-ray reviewed 02/24/2020. Shows improving pleural effusions and CHF Impression . IMPRESSION: 1. Acute on chronic hypercapnic and hypoxic respiratory failure secondary to acute on chronic cor pulmonale, component of diastolic congestive heart failure and acute exacerbation of chronic obstructive pulmonary disease. In addition severe pulmonary hypertension. 2. Abnormal chest x-ray revealed increasing bilateral interstitial infiltrates and pleural effusions consistent with heart failure. It is combination of diastolic congestive heart failure and acute on chronic right heart failure. Chest x-ray improved. Recent right heart cath findings does not suggest any significant LV contribution . Patient has normal left ventricular end-diastolic pressure 3. Underlying severe chronic obstructive pulmonary disease with chronic hypercapnia and chronic hypoxic respiratory failure. 4. Underlying obesity, hypoventilation syndrome and cor pulmonale. obstructive sleep apnea. 5. Chronic kidney disease. Recent acute decompensation. Now on IV fluids. 6. Paroxysmal atrial fibrillation. On chronic anticoagulation. 7. Severe protein-calorie malnutrition. 8. Status post right heart cath. Plan . Continue supplemental oxygen to keep oxygen saturations greater than 90%, patient is currently on BiPAP nightly and alternating with 10 L nasal cannula during the day. Clinically unchanged. I have reviewed right heart cath findings recently with Dr. Denis. Patient has severe pulmonary hypertension. Patient has normal pulmonary capillary wedge pressure and left ventricular end-diastolic pressure. There was no response to adenosine. Patient's severe pulmonary hypertension is multifactorial and includes combination of severe COPD, obesity hypoventilation syndrome and obstr uctive sleep apnea. Patient would, however benefit from addition of vasodilator therapy. It will be arranged as an outpatient. In the meantime patient would be a candidate for trilogy nocturnal ventilator. Patient would benefit from transfer to [facility] . will also arrange outpatient follow-up with pulmonary hypertension clinic at Bronchodilators Follow chest x-ray improving.. Follow nephrology recommendations in regards to LUIS on CKD, avoid nephrotoxic medications, fluid challenge. Mild improvement in renal function Heparin per vascular surgery recommendations. May need to amputations in future Physical therapy/Occupational Therapy DVT/GI prophylaxis Discussed with RN Discussed with inside sales recruiter and Dr. Grajeda. Okay to transfer to [facility]. IRAIS HICKS MD Feb 26, 2022 09:56
--- NOTE | 2022-02-26 10:26 | PDOC ---
[employer] PROGRESS NOTE Date of Service DOS: DATE: 02/26/22 TIME: 10:24 Chief Complaint Chief Complaint Acute hypoxic/hypercapnic respiratory failure requiring BiPAP support Abnormal CXR - possible gram-negative organisms possible aspiration Left 2nd toe ulcer - polymicrobial with pseudomonas, MRSA, enterococcus requiring multiple IV antibiotics Acute renal failure - vasomotor nephropathy. Prior Cr 1 2 months ago. Acute electrolyte derangementhyponatremia, likely hypervolemic Acute on chronic respiratory acidosis Lactic acidemia Elevated BNP suggestive of volume overload History of COPD History of diabetes mellitus type 2 History of tobacco misuse Severe pulmonary hypertension - WHO classes COPD and diastolic CHF, previously negative CTPA in August 2021. VQ scan to r/o chronic venous thrombo-embolism and autoimmune disorder workup not yet complete due to acute medical illness Plan: Continue supplemental oxygen to keep oxygen saturations greater than 90%, patient is currently on BiPAP nightly and alternating with 10 L nasal cannula during the day. likely needs vasodilator therapy. Needs eval for trilogy nocturnal ventilator. Patient should be further evaluated for LTAC Bronchodilators Follow chest x-ray improving.. Follow nephrology recommendations in regards to LUIS on CKD, avoid nephrotoxic medications, worsening creatinine. Consider fluid challenge. Heparin per vascular surgery recommendations. May need to amputations in future Physical therapy/Occupational Therapy DVT/GI prophylaxis Discussed with RN History of Present Illness History of Present Illness Mr Pelayo is a 57-year-old male with past medical history of CHF, COPD on 6 L home O2, diabetes mellitus 2 who comes in with shortness of breath for the past several weeks. The past few days has worsened to the point where he needed to come to the ED for further evaluation. Patient is on torsemide at home for his CHF. He is little confused and so dyspneic with NT proBNP greater than 13,000 dyspnea did improve with initial diuresis and increasing supplemental O2 and was placed on BiPAP with improvement and admitted for further care. 02/20: Overnight continued on BiPAP 14/7 with a 16rr, 60% FiO2 with ABG 7.2 96/64/88. Seen by podiatry for consideration of left second toe amputation and cardiology for consideration for aortogram with runoff given monophasic findings on left lower extremity arterial Doppler with no clear occlusive disease in the lower extremity. Shortness of breath and cough conversational dyspnea. Is able to talk through his BiPAP. No significant chest discomfort currently. 02/21: Seen on BiPAP 40% this morning. Has conversational dyspnea but otherwise he feels the shortness of breath improving. CR 2.6. No chest pain. Polymicrobial infection in his toe. 02/22/2022: No acute events overnight. Patient seen examined on commode. No dyspnea upon my encounter. Still on BiPAP at 40% and saturating 95%. Maintain saturation between 90 to 92%. Patient's chart, labs, images were reviewed and discussed with RN Consults: Cardiology, pulmonology, podiatry, vascular surgery 02/23: Patient evaluated examined at bedside. Up in chair on BiPAP. Said breathing does feel little bit improved but still pretty bad. Creatinine still elevated. Possible heart cath today. Discussed with bedside RN. 02/24: Patient evaluated examined at bedside. Resting in bed. Labored respirations. Reviewed blood culture results does have polymicrobial infection. Will consult ID today. Reviewed heart cath results and recommendations. May need transfer. Discussed with him oxygen requirement as well. He was on 6 L nasal cannula when I saw him does report he sometimes has to push up to 8 or 9 L at home. Also says his BiPAP is not working at home. Not clinically ready for discharge at this point. 02/25: Seen bedside. Taken off of BiPAP to breakfast requiring 2 L/min nasal cannula oxygen. He still has conversational dyspnea severe pulmonary hypertension per right heart catheterization with cardiology. Needs to continue with his pulmonary hypertension follow-up BP high risk for surgery though he does require eventual amputation of his fourth left toe due to his respiratory status being very tenuous this to be difficult. He is going to require long-term IV antibiotics and BiPAP and likely needs a trilogy device. He should be evaluated for LTACH. 02/26 Patient evaluated examined at bedside. On BiPAP when seen. Clinically about th e same. Discussed with cardiology team reported they are planning for cardioversion tomorrow. Not planning on a transfer at this point. [facility] to see patient today about placement options. Vitals/I&O Vitals/I&O: Vital Signs Date Time Temp Pulse Resp B/P (MAP) Pulse Ox O2 Delivery O2 Flow Rate FiO2 02/26/22 08:57 80 103/62 02/26/22 08:00 Bi-pap 50.0 02/26/22 07:27 92 02/26/22 07:00 96.9 18 96.9 I & O 02/25/22 02/25/22 02/26/22 15:00 23:00 07:00 Intake Total 460 ml 280 ml 411 ml Output Total 700 ml 450 ml 1000 ml Balance -240 ml -170 ml -589 ml Physical Exam Physical Exam: GENERAL: Alert, oriented gentleman, not in distress. VITAL SIGNS: Stable, afebrile. HEENT: NAD. NECK: Supple, no JVP, no lymphadenopathy. LUNGS: Clear. HEART: S1, S2, regular. ABDOMEN: Soft, nontender, no organomegaly. EXTREMITIES: Dry, cracked skin all over with venous insufficiency, stasis dermatitis, left fourth toe is gangrenous, it is dry gangrene; edema 2+; peripheral pulses not palpable secondary to edema. Rest of the skin exam is unremarkable. NEUROLOGIC: The patient is alert, awake, and appropriate. No focal neurologic deficit. General: Alert, Oriented X3, Cooperative Heart: Regular rate, Normal S1, Normal S2 Lungs: Other (Decreased breath sounds bilaterally) Abdomen: Normal bowel sounds, Soft, Other (Obese) Extremities: No clubbing, No cyanosis, Other (Bilateral lower extremity pitting edema) Skin: Other (Dry gangrene of the left fourth toe, no cellulitis, no drainage, no purulence, no malodor) Labs Labs: Laboratory Tests Test 02/25/22 11:21 02/25/22 17:10 02/25/22 21:05 02/26/22 03:30 Glucose (Fingerstick) 148 mg/dL (70-99) 137 mg/dL (70-99) 118 mg/dL (70-99) Sodium Level 136 mmol/L (136-145) Potassium Level 3.7 mmol/L (3.5-5.1) Chloride Level 98 mmol/L (98-107) Carbon Dioxide Level 31 mmol/L (21-32) Anion Gap 7 (6-14) Blood Urea Nitrogen 38 mg/dL (8-26) Creatinine 3.0 mg/dL (0.7-1.3) Estimated GFR (Cockcroft-Gault) 21.8 Glucose Level 118 mg/dL (70-99) Calcium Level 8.0 mg/dL (8.5-10.1) Test 02/26/22 07:38 Glucose (Fingerstick) 133 mg/dL (70-99) Assessment and Plan Assessmemt and Plan Problems Medical Problems: (1) Acute exacerbation of CHF (congestive heart failure) Status: Acute (2) Acute kidney injury Status: Acute (3) Hypoxia Status: Acute Comment Review of Relevant I have reviewed the following items wade (where applicable) has been applied. Medications: Current Medications Medications (Trade) Dose Ordered Sig/Theresa Route PRN Reason Start Time Stop Time Status Last Admin Dose Admin Milrinone Lactate/ Dextrose 100 ml @ 5.074 mls/ hr CONT PRN IV SEE I/O RECORD 02/25/22 12:00 02/26/22 05:31 Piperacillin Sod/ Tazobactam Sod 3.375 gm/Sodium Chloride 50 ml @ 100 mls/hr Q6HRS IV 02/25/22 18:00 02/26/22 09:35 DC 02/26/22 05:30 Justifications for Admission Other Justification Acute hypoxemic respiratory failure ABY TINOCO MD Feb 26, 2022 10:26
--- NOTE | 2022-02-26 10:52 | PDOC ---
ULISES HOUGH DELIVERY DEPARTMENT SUPERVISOR 02/26/22 1052: CARDIO Progress Notes Date and Time Date of Service 02/26/2022 Time of Evaluation 1030 Subjective Subjective: No Chest Pain, No Palpitations, Other (SOA better) Vitals Vitals Vital Signs Date Time Temp Pulse Resp B/P (MAP) Pulse Ox O2 Delivery O2 Flow Rate FiO2 02/26/22 08:57 80 103/62 02/26/22 08:00 Bi-pap 50.0 02/26/22 07:27 92 02/26/22 07:00 96.9 18 96.9 Weight Weight [ ] Input and Output Intake and Output Intake and Output 02/26/22 07:00 Intake Total 1151 ml Output Total 2150 ml Balance -999 ml Intake Oral 940 ml IV Total 211 ml Output Urine Total 2150 ml Laboratory Labs Laboratory Tests Test 02/25/22 11:21 02/25/22 17:10 02/25/22 21:05 02/26/22 03:30 Glucose (Fingerstick) 148 mg/dL (70-99) 137 mg/dL (70-99) 118 mg/dL (70-99) Sodium Level 136 mmol/L (136-145) Potassium Level 3.7 mmol/L (3.5-5.1) Chloride Level 98 mmol/L (98-107) Carbon Dioxide Level 31 mmol/L (21-32) Anion Gap 7 (6-14) Blood Urea Nitrogen 38 mg/dL (8-26) Creatinine 3.0 mg/dL (0.7-1.3) Estimated GFR (Cockcroft-Gault) 21.8 Glucose Level 118 mg/dL (70-99) Calcium Level 8.0 mg/dL (8.5-10.1) Test 02/26/22 07:38 Glucose (Fingerstick) 133 mg/dL (70-99) Microbiology Micro Microbiology 02/21/22 Urine Culture - Final, Complete 02/19/22 Gram Stain - Final, Complete 02/19/22 Aerobic and Anaerobic Culture - Final, Complete Pseudomonas Aeruginosa Enterococcus Faecalis Staphylococcus Aureus (Mrsa) 02/19/22 Blood Culture - Final, Complete NO GROWTH AFTER 5 DAYS Physical Exam HEENT: Neck Supple W Full Motion Chest: Symmetric LUNGS: Other (diminished, off bipap) Heart: irregularly irregular (AFIB) Abdomen: Soft N/T, Other (obese) Extremities: Other (3+ bilateral LE pitting edema, venous dermatitis) Neurology: alert, oriented, follow commands Assessment Assessment 1. Acute on chronic hypercapnic respiratory failure, AECOPD, CHF, cor pulmonale 2. Acute on chronic diastolic/systolic CHF: SOA better 3. Persistent AFIB with RVR: now controlled 4. DM2: per PCP 5. Hypertension: controlled 6. HLP 7. BALTA, obesity hypoventilation syndrome: poor bipap compliance, last use was 3 weeks ago 8. CAD; recent Moderate single-vessel coronary artery disease to LAD 9. LLE PAD with noted neuropathy and left 4th toe gangrene: stub toe [address] Hutson and Dr. Griggs following 10. LUIS: Cr 3. nephrology following 11. Severe pulmonary HTN/cor pulmonale: nml left sided filling pressure per RHC 12. NICM: potentially tachy mediated. EF at 25% Recommendations Bipap Continue milrinone. PCXR. Lasix as needed Will have to DC cardizem due to low EF. Start on toprol. Discussed with Dr. Parsons and ok to start on amiodarone. Will start protocol and plan for REJI/CVN tomorrow. Eliquis for stroke prevention Secondary prevention measures He has failed to follow up in office x2 and further failed to use his BiPAP but reported med compliance including eliquis. Discussed treatment adherance. He was suppose to be set for CVN as an outpt but failed to f/u with Dr. Rothman Ongoing lung optimization. Referral for outpt pulmonary HTN management. Justicifation of Admission Dx: Justifications for Admission: Justification of Admission Dx: Yes Respiratory Failure: Severe Resp Distress JENNIFFER ROTHMAN MD 02/27/22 0951: CARDIO Progress Notes Assessment Assessment Patient seen and examined 02/26/22. Agree with BLOWER AND COMPRESSOR ASSEMBLER's assessment and plan. Acute respiratory failure secondary to combination of acute COPD exacerbation, acute on chronic combined systolic and diastolic heart failure and severe pulmonary hypertension Patient presently needing BiPAP. Pulmonary team following. Continue diuresis and milrinone infusion for inotropic support Persistent atrial fibrillation rate controlled Continue Eliquis for stroke prophylaxis Start amiodarone and plan REJI guided cardioversion tomorrow ULISES HOUGH APRN Feb 26, 2022 10:52 JENNIFFER ROTHMAN MD Feb 27, 2022 09:51
[2022-02-26] MEDS: PIPERACILLIN/TAZOBACTAM 4.5 GM in IV DEXTROSE 5% 100ML 100 ML IV SCH ×2 (11:47→16:51)
[2022-02-26] MEDS ORDERED: 0.9 % SODIUM CHLORIDE 10 ML DISP.SYRIN. IV PRN (12:30)
[2022-02-26] MEDS: SILDENAFIL CITRATE 20 MG TABLET. PO SCH ×2 (13:00→20:51)
[2022-02-26] MEDS ORDERED: AMIODARONE 150 MG in IV DEXTROSE 5% 100ML 100 ML IV ONE (13:30)
--- NOTE | 2022-02-26 13:53 | RAD ---
EXAM: CHEST ONE VIEW. HISTORY: Congestive heart failure. COMPARISON: 02/23/2022. FINDINGS: A frontal view of the chest is obtained. Small bilateral pleural effusions are stable. The basilar predominant interstitial opacities are unch anged. There is no pneumothorax. The heart is moderately enlarged. The main pulmonary artery appears enlarged. IMPRESSION: 1. Stable small pleural effusions and basilar opacities consistent with mild pulmonary edema. 2. Cardiomegaly with findings suggesting pulmonary arterial hypertension. Electronically signed by: Jessica Fernandez MD (02/26/2022 1:51 PM) MARLENE
--- NOTE | 2022-02-26 14:07 | PDOC ---
Infectious Disease Note Subjective Subjective pt is feeling ok still on BiPAP ROS ROS no n/v/d/ Vital Sign Vital Signs Vital Signs Date Time Temp Pulse Resp B/P (MAP) Pulse Ox O2 Delivery O2 Flow Rate FiO2 02/26/22 13:00 98 131/55 02/26/22 11:05 BiPAP/CPAP 02/26/22 11:00 97.3 22 95 50.0 97.3 Physical Exam PHYSICAL EXAM GENERAL: Alert, oriented gentleman, not in distress. VITAL SIGNS: Stable, afebrile. HEENT: NAD. NECK: Supple, no JVP, no lymphadenopathy. LUNGS: Clear. HEART: S1, S2, regular. ABDOMEN: Soft, nontender, no organomegaly. EXTREMITIES: Dry, cracked skin all over with venous insufficiency, stasis dermatitis, left fourth toe is gangrenous, it is dry gangrene; edema 2+; peripheral pulses not palpable secondary to edema. Rest of the skin exam is unremarkable. NEUROLOGIC: The patient is alert, awake, and appropriate. No focal neurologic deficit. Labs Lab Laboratory Tests Test 02/25/22 17:10 02/25/22 21:05 02/26/22 03:30 02/26/22 07:38 Glucose (Fingerstick) 137 mg/dL (70-99) 118 mg/dL (70-99) 133 mg/dL (70-99) Sodium Level 136 mmol/L (136-145) Potassium Level 3.7 mmol/L (3.5-5.1) Chloride Level 98 mmol/L (98-107) Carbon Dioxide Level 31 mmol/L (21-32) Anion Gap 7 (6-14) Blood Urea Nitrogen 38 mg/dL (8-26) Creatinine 3.0 mg/dL (0.7-1.3) Estimated GFR (Cockcroft-Gault) 21.8 Glucose Level 118 mg/dL (70-99) Calcium Level 8.0 mg/dL (8.5-10.1) Test 02/26/22 11:19 Glucose (Fingerstick) 121 mg/dL (70-99) Micro Microbiology 02/21/22 Urine Culture - Final, Complete 02/19/22 Gram Stain - Final, Complete 02/19/22 Aerobic and Anaerobic Culture - Final, Complete Pseudomonas Aeruginosa Enterococcus Faecalis Staphylococcus Aureus (Mrsa) 02/19/22 Blood Culture - Final, Complete NO GROWTH AFTER 5 DAYS Objective Assessment IMPRESSION: 1. Left fourth toe gangrene with osteomyelitis. 2. Chronic obstructive pulmonary disease . 3. Congestive heart failure. 4. Coronary artery disease. 5. Atrial fibrillation. 6. Renal insufficiency. Plan Plan of Care Continue antibiotics Patient is going to [facility] RONA NUGENT MD Feb 26, 2022 14:07
[2022-02-26] MEDS: AMIODARONE 450 MG in IV DEXTROSE 5% 250 ML IV PRN (16:00)
--- NOTE | 2022-02-26 16:01 | NUR ---
SS following up with discharge planning. SS reviewed pt chart and discussed with pt RN. Pt is currently on BIPAP at 50%. COVID19 negative. Amiodarone drip. Pt on IV Zosyn and PO Zyvox. Pt has home oxygen and BIPAP. Clinical phoned and faxed to [facility], ; fax [phone], for Triology per Dr. Bhandari request. Cardioversion tomorrow, 02/27/2022. [facility], ; fax [phone]. Clinical updates phoned and faxed to [facility]. SS will continue to follow for discharge planning.
[2022-02-26] MEDS ORDERED: FUROSEMIDE 20 MG/2 ML VIAL. IVP ONE (16:15)
[2022-02-26] MEDS: ATORVASTATIN CALCIUM 20 MG TABLET PO SCH (20:50)
[2022-02-26] MEDS: oxyCODONE/APAP 5/325 1 TAB TABLET PO PRN (22:00)
[2022-02-27] MEDS: PIPERACILLIN/TAZOBACTAM 4.5 GM in IV DEXTROSE 5% 100ML 100 ML IV SCH ×5 (00:40→23:48)
[2022-02-27] MEDS: SIMETHICONE 80 MG TAB.CHEW PO SCH ×5 (00:40→23:47)
[2022-02-27 02:15] VITALS: BP 90/55
[2022-02-27] MEDS: AMIODARONE 450 MG in IV DEXTROSE 5% 250 ML IV PRN (02:43)
[2022-02-27] MEDS: ALBUTEROL SULFATE 2.5 MG/3 ML NEBU. NEB PRN (04:17)
[2022-02-27 04:37] LABS: CALCIUM 8.2 mg/dL (8.5-10.1); CREATININE 3.1 mg/dL (0.7-1.3); GFR 20.9; POTASSIUM 3.5 mmol/L (3.5-5.1)
[2022-02-27] MEDS ORDERED: IV RINGERS,LACTATED 1000ML 1,000 ML IV SCH (06:00)
[2022-02-27] MEDS ORDERED: fentaNYL PF VIAL 100 MCG/2 ML VIAL IVP PRN ×2 (06:00)
[2022-02-27] MEDS ORDERED: HYDROmorphone 2 MG/ML INJ. IVP PRN (06:00)
[2022-02-27] MEDS ORDERED: PROCHLORPERAZINE 10 MG/2 ML VIAL. IVP PRN (06:00)
[2022-02-27] MEDS ORDERED: MORPHINE SULFATE 2 MG/ML INJ. IVP PRN (06:00)
[2022-02-27 07:00] VITALS: BP 111/58
[2022-02-27] MEDS: PANTOPRAZOLE 40 MG TABLET.DR. PO SCH (07:30)
[2022-02-27] MEDS: IPRATRPIUM/ALBUTEROL 0.5/2.5MG 3 ML NEBU. NEB SCH ×4 (08:00→19:01)
[2022-02-27] MEDS: ASPIRIN ENTERIC COATED 81 MG TABLET.DR. PO SCH (08:00)
[2022-02-27] MEDS: SILDENAFIL CITRATE 20 MG TABLET. PO SCH ×2 (08:48→21:21)
[2022-02-27] MEDS: APIXABAN 5 MG TABLET. PO SCH ×2 (08:48→21:20)
[2022-02-27] MEDS: METOPROLOL SUCC 24HR ER 50 MG TAB.ER.24H. PO SCH (08:48)
[2022-02-27] MEDS: LACTOBACILLUS RHAMNOSUS GG 1 CAPSULE. PO SCH ×2 (09:00→21:20)
[2022-02-27] MEDS: MAGNESIUM OXIDE 400 MG TABLET PO SCH (09:00)
[2022-02-27] MEDS: DOCUSATE SODIUM 100 MG CAPSULE. PO SCH (09:00)
[2022-02-27] MEDS: LINEZOLID 600 MG TABLET PO SCH ×2 (09:00→21:20)
--- NOTE | 2022-02-27 09:25 | PDOC ---
DATE OF SERVICE DATE: 02/27/22 TIME: 09:24 SUBJECTIVE ROS No acute concerns, Stable . On BiPAP when seen. .\Scheduled for cardioversion today OBJECTIVE Vital Signs Vital Signs Date Time Temp Pulse Resp B/P (MAP) Pulse Ox O2 Delivery O2 Flow Rate FiO2 02/27/22 09:17 93 BiPAP/CPAP 02/27/22 08:48 87 111/58 02/27/22 08:00 50.0 02/27/22 07:00 97.7 22 97.7 I & 0 Intake and Output 02/27/22 07:00 Intake Total 300 ml Output Total 3275 ml Balance -2975 ml Intake Oral 300 ml Output Urine Total 3275 ml PHYSICAL EXAM Physical Exam General: Alert, Oriented X3, Mild distress, HEENT: Atraumatic, PERRLA, On O2 by NC Neck Supple Lungs: Decreased at bases ant, Heart: irregularly irregular, Abdomen: Normal bowel sounds, Obese Extremities: edema +, Changes of CVI +; left foot there is black dry gangrene of the fourth toe, no surrounding erythema or drainage Skin: No rash Neuro: Grossly normal , moving al extrem Psych/Mental Status: cooperative Lyons +, No CVA or SP tenderness DIAGNOSIS/ASSESSMENT Assessment & Plan LUIS Cardiorenal/ ATN / Renal US unremarkable .Non Oliguric, Creat stable Supportive care , maintain fluid balance., avoid overdiuresis Avoid Nephrotoxins (was getting IV Vanc ) Baseline Cr 0.7-0.9; 1.1 since Nov 2021- hospitalized at [facility] Microscopic hematuria- UA with Blood and RBC's repeat same - - Lyons sample UA in May 2021 Unremarkable , No RBC's . Proteunuria- nephrotic range- Lyons sample , Uncontrolled DM history . Discussed Bx with patient - may or not manager of change chacha due to multiple co- morbidities . Multiple comorbidities Infection /Cardiac and Pulm issues ,on anticoagulation and antiplatelet agents. Acute hypoxic/hypercapnic respiratory failure requiring BiPAP support- Uses O2 and Bipap at home as well(Non compliant) Blood culture have polymicrobial infection. ID managing CHF- card managing diuretics . Rt heart cath - Pulm HTN Persistent AFIB with RVR:scheduled for cardioversion today Dry gangrene of the left fourth toe. Will need Amputation, Non Urgent . Discussed with Dr Martinez, planning to hold for now 2/2 LUIS, Non urgent History of COPD History of diabetes mellitus type 2 History of tobacco misuse COMMENT/RELEVANT DATA Meds Current Medications Medications (Trade) Dose Ordered Sig/Theresa Start Time Stop Time Status Last Admin Dose Admin Acetaminophen (Tylenol) 650 mg PRN Q4HRS PRN 02/19/22 14:45 Adenosine (Adenoscan) 90 mg STK-MED ONCE 02/23/22 14:32 02/23/22 14:33 DC Albuterol Sulfate (Ventolin Neb Soln) 2.5 mg PRN Q4HRS PRN 02/19/22 14:45 02/27/22 04:17 2.5 MG Albuterol/ Ipratropium (Duoneb) 3 ml RTQID 02/19/22 16:00 02/26/22 21:11 3 ML Amiodarone HCl 150 mg/Dextrose 103 ml @ 600 mls/hr 1X ONCE 02/26/22 13:30 02/26/22 13:40 DC 02/26/22 13:30 600 MLS/HR Amiodarone HCl 450 mg/Dextrose 259 ml @ 0 mls/hr CONT PRN 02/26/22 13:30 02/27/22 13:29 02/27/22 02:43 16.7 MLS/HR Apixaban (Eliquis) 5 mg BID 02/24/22 13:00 02/27/22 08:48 5 MG Aspirin (Ecotrin) 81 mg DAILYWBKFT 02/21/22 15:00 02/26/22 08:56 81 MG Atorvastatin Calcium (Lipitor) 20 mg QHS 02/19/22 21:00 02/26/22 20:50 20 MG Digoxin (Lanoxin) 500 mcg 1X ONCE 02/20/22 11:30 02/20/22 11:31 DC 02/20/22 11:30 500 MCG Diltiazem HCl (Cardizem 24hr Cd) 240 mg DAILY 02/20/22 09:00 02/26/22 10:49 DC 02/26/22 08:57 240 MG Docusate Sodium (Colace) 100 mg DAILY 02/20/22 09:00 02/26/22 08:56 100 MG Fentanyl Citrate (Fentanyl 2ml Vial) 50 mcg PRN Q5MIN PRN 02/27/22 06:00 02/28/22 05:59 Furosemide (Lasix) 20 mg 1X ONCE 02/26/22 16:15 02/26/22 16:16 DC 02/26/22 16:15 20 MG Heparin Sodium (Porcine) (Heparin Sodium) 2,500 unit 1X ONCE 02/23/22 14:30 02/23/22 14:34 DC 02/23/22 14:30 2,500 UNIT Heparin Sodium/ Dextrose 250 ml @ 10 mls/hr CONT PRN 02/20/22 19:45 02/24/22 12:40 DC 02/24/22 08:57 30.1 MLS/HR Heparin Sodium/ Sodium Chloride (HEPARIN for ARTERIAL LINE FLUSH) 1,000 unit 1X ONCE 02/23/22 14:15 02/23/22 14:23 DC 02/23/22 14:15 1,000 UNIT Hydromorphone HCl (Dilaudid) 0.5 mg PRN Q10MIN PRN 02/27/22 06:00 02/28/22 05:59 Info (Anti-Coagulation Monitoring By Pharmacy) 1 each PRN DAILY PRN 02/19/22 15:15 02/23/22 16:38 1 EACH Lactobacillus Rhamnosus (Culturelle) 1 cap BID 02/20/22 09:00 02/26/22 20:50 1 CAP Lidocaine HCl (Lidocaine 1% 20ml Vial) 20 ml STK-MED ONCE 02/23/22 13:25 02/23/22 13:26 DC Lidocaine HCl (Lidocaine 2% 20ml Vial) 2 ml 1X ONCE 02/23/22 14:15 02/23/22 14:24 DC 02/23/22 14:15 3 ML Linezolid (Zyvox) 600 mg BID 02/24/22 21:00 02/26/22 20:52 600 MG Magnesium Oxide (Magnesium Oxide) 400 mg DAILY 02/20/22 09:00 02/26/22 08:56 400 MG Metoprolol Succinate (Toprol Xl) 50 mg DAILY 02/27/22 09:00 02/27/22 08:48 50 MG Milrinone Lactate/ Dextrose 100 ml @ 5.074 mls/ hr CONT PRN 02/25/22 12:00 02/26/22 20:55 5.074 MLS/HR Morphine Sulfate (Morphine Sulfate) 1 mg PRN Q10MIN PRN 02/27/22 06:00 02/28/22 05:59 Nitroglycerin (Nitroglycerin) 200 mcg 1X ONCE 02/23/22 14:30 02/23/22 14:34 DC 02/23/22 14:30 200 MCG Oxycodone/ Acetaminophen (Percocet 5/325) 1 tab PRN Q4HRS PRN 02/20/22 23:30 02/26/22 22:00 1 TAB Pantoprazole Sodium (Protonix) 40 mg DAILYAC 02/20/22 07:30 02/27/22 07:30 40 MG Perflutren Protein Type A Microsphe (Optison) 0.66 mg 1X ONCE 02/24/22 07:00 02/24/22 07:01 DC 02/24/22 07:00 0.66 MG Piperacillin Sod/ Tazobactam Sod (Zosyn Per Pharmacy) 1 each PRN DAILY PRN 02/19/22 17:15 Piperacillin Sod/ Tazobactam Sod 3.375 gm/Sodium Chloride 50 ml @ 100 mls/hr Q6HRS 02/25/22 18:00 02/26/22 09:35 DC 02/26/22 05:30 100 MLS/HR Piperacillin Sod/ Tazobactam Sod 4.5 gm/Dextrose 100 ml @ 200 mls/hr Q6HRS 02/26/22 12:00 02/27/22 06:03 200 MLS/HR Prochlorperazine Edisylate (Compazine) 5 mg PACU PRN PRN 02/27/22 06:00 02/28/22 05:59 Ringer's Solution 1,000 ml @ 30 mls/hr Q24H 02/27/22 06:00 02/27/22 17:59 02/27/22 06:03 30 MLS/HR Sildenafil Citrate (Revatio) 20 mg BID 02/26/22 13:00 02/27/22 08:48 20 MG Simethicone (Gas-X) 40 mg Q6HRS 02/19/22 18:00 02/27/22 06:03 40 MG Sodium Chloride (Normal Saline Flush) 10 ml QSHIFT PRN 02/26/22 12:30 Vancomycin HCl (Vanco Per Pharmacy) 1 each PRN DAILY PRN 02/23/22 12:30 02/24/22 13:49 DC 02/23/22 14:16 1 EACH Vancomycin HCl (Vancomycin Random Level) 1 each 1X ONCE 02/24/22 16:00 02/24/22 16:01 Cancel Vancomycin HCl 2 gm/Sodium Chloride 500 ml @ 250 mls/hr 1X ONCE 02/23/22 13:00 02/23/22 14:59 DC 02/23/22 16:08 250 MLS/HR Verapamil HCl (Verapamil) 2.5 mg 1X ONCE 02/23/22 14:30 02/23/22 14:34 DC 02/23/22 14:30 2.5 MG Lab Laboratory Tests Test 02/26/22 11:19 02/26/22 16:41 02/26/22 20:48 02/27/22 04:00 Glucose (Fingerstick) 121 mg/dL (70-99) 143 mg/dL (70-99) 148 mg/dL (70-99) Sodium Level 132 mmol/L (136-145) Potassium Level 3.5 mmol/L (3.5-5.1) Chloride Level 95 mmol/L (98-107) Carbon Dioxide Level 31 mmol/L (21-32) Anion Gap 6 (6-14) Blood Urea Nitrogen 36 mg/dL (8-26) Creatinine 3.1 mg/dL (0.7-1.3) Estimated GFR (Cockcroft-Gault) 20.9 Glucose Level 122 mg/dL (70-99) Calcium Level 8.2 mg/dL (8.5-10.1) Test 02/27/22 07:19 Glucose (Fingerstick) 121 mg/dL (70-99) Results All relevant outside records, renal labs, imaging studies, telemetry/EKG's were reviewed. Justicifation of Admission Dx: Justifications for Admission: Justification of Admission Dx: Yes Respiratory Failure: Severe Resp Distress BLAS ORR MD Feb 27, 2022 09:25
--- NOTE | 2022-02-27 09:37 | PDOC ---
PULMONARY PROGRESS NOTES DATE: 02/27/22 TIME: 09:33 Subjective Patient denies any shortness of breath. Patient is back and forth between BiPAP and 10 L nasal cannula. Currently on BiPAP at 45% FiO2. Patient started on amiodarone and milrinone for atrial fibrillation. Cardioversion is scheduled for today. Revatio was started for severe pulmonary hypertension. Vitals Vital Signs Date Time Temp Pulse Resp B/P (MAP) Pulse Ox O2 Delivery O2 Flow Rate FiO2 02/27/22 09:17 93 BiPAP/CPAP 02/27/22 08:48 87 111/58 02/27/22 08:00 50.0 02/27/22 07:00 97.7 22 97.7 ROS: No Nausea, No Chest Pain, No Abdominal Pain, No Increase Cough General: Alert, Oriented X4, No acute distress HEENT: Other Lungs: Other (Decreased breath sounds bilaterally) Cardiovascular: S1, S2 Abdomen: Soft, Non-tender Extremities: Other (2+ pitting edema and signs of venous stasis.) Skin: Warm, Dry Labs Laboratory Tests Test 02/25/22 10:00 02/25/22 11:21 02/25/22 17:10 02/25/22 21:05 Coronavirus (COVID-19)(PCR) Not detected (NOT DETECTD) Glucose (Fingerstick) 148 mg/dL (70-99) 137 mg/dL (70-99) 118 mg/dL (70-99) Test 02/26/22 03:30 02/26/22 07:38 02/26/22 11:19 02/26/22 16:41 Sodium Level 136 mmol/L (136-145) Potassium Level 3.7 mmol/L (3.5-5.1) Chloride Level 98 mmol/L (98-107) Carbon Dioxide Level 31 mmol/L (21-32) Anion Gap 7 (6-14) Blood Urea Nitrogen 38 mg/dL (8-26) Creatinine 3.0 mg/dL (0.7-1.3) Estimated GFR (Cockcroft-Gault) 21.8 Glucose Level 118 mg/dL (70-99) Calcium Level 8.0 mg/dL (8.5-10.1) Glucose (Fingerstick) 133 mg/dL (70-99) 121 mg/dL (70-99) 143 mg/dL (70-99) Test 02/26/22 20:48 02/27/22 04:00 02/27/22 07:19 Glucose (Fingerstick) 148 mg/dL (70-99) 121 mg/dL (70-99) Sodium Level 132 mmol/L (136-145) Potassium Level 3.5 mmol/L (3.5-5.1) Chloride Level 95 mmol/L (98-107) Carbon Dioxide Level 31 mmol/L (21-32) Anion Gap 6 (6-14) Blood Urea Nitrogen 36 mg/dL (8-26) Creatinine 3.1 mg/dL (0.7-1.3) Estimated GFR (Cockcroft-Gault) 20.9 Glucose Level 122 mg/dL (70-99) Calcium Level 8.2 mg/dL (8.5-10.1) Laboratory Tests Test 02/26/22 11:19 02/26/22 16:41 02/26/22 20:48 02/27/22 04:00 Glucose (Fingerstick) 121 mg/dL (70-99) 143 mg/dL (70-99) 148 mg/dL (70-99) Sodium Level 132 mmol/L (136-145) Potassium Level 3.5 mmol/L (3.5-5.1) Chloride Level 95 mmol/L (98-107) Carbon Dioxide Level 31 mmol/L (21-32) Anion Gap 6 (6-14) Blood Urea Nitrogen 36 mg/dL (8-26) Creatinine 3.1 mg/dL (0.7-1.3) Estimated GFR (Cockcroft-Gault) 20.9 Glucose Level 122 mg/dL (70-99) Calcium Level 8.2 mg/dL (8.5-10.1) Test 02/27/22 07:19 Glucose (Fingerstick) 121 mg/dL (70-99) Medications Active Scripts Medications Dose Route/Sig Max Daily Dose Days Date Category Simethicone 80 Mg Tab.chew 0.5 Tab PO Q6HRS 10 12/19/21 Rx Insulin Lispro Kwikpen U-100 (Insulin Lispro) 100 Unit/1 Ml Insuln.pen 0-9 Unit SQ TIDACHC 30 12/19/21 Rx Potassium Chloride (Potassium Chloride) 20 Meq Tablet.er 20 Meq PO DAILYWBKFT 30 12/19/21 Rx Pantoprazole Sodium (Pantoprazole Sodium) 40 Mg Tablet.dr 40 Mg PO DAILYAC 30 12/19/21 Rx Colace (Docusate Sodium) 100 Mg Capsule 100 Mg PO DAILY 30 12/19/21 Rx Magnesium Oxide 400 Mg Tablet 400 Mg PO DAILY 30 12/19/21 Rx Acetaminophen 325 Mg Tablet 650 Mg PO PRN Q4HRS PRN 30 12/19/21 Rx Atorvastatin Calcium 20 Mg Tablet 20 Mg PO QHS 30 12/19/21 Rx Furosemide 40 Mg Tablet 3 Tab PO DAILY 12/03/21 Reported Eliquis (Apixaban) 5 Mg Tablet 5 Mg PO BID 30 09/30/21 Rx Diltiazem 24Hr Cd (Diltiazem HCl) 240 Mg Cap.er.24h 240 Mg PO DAILY 30 09/30/21 Rx Advair 500-50 Diskus (Fluticasone/Salmeterol) 1 Each Disk.w.dev 1 Puff INH BID 09/24/21 Reported Albuterol Sulfate Neb Soln (Albuterol Sulfate) 2.5 Mg/3 Ml Vial.neb 2.5 Mg NEB PRN Q4-6HRS PRN 06/12/21 Reported Glyxambi 25 mg-5 mg Tablet (Empagliflozin/Linagliptin) 1 Each Tablet 1 Each PO DAILY 01/03/21 Reported [Albuterol Sulfate] 2.5 MG/3 ML Nebu 2.5 Mg NEB PRN Q2HR PRN 09/26/14 Rx Metformin Hcl Er (Metformin Hcl) 500 Mg Tab.er.24 500 Mg PO BID 11/26/13 Reported Lisinopril 5 Mg Tablet 10 Mg PO DAILY 11/26/13 Reported Spiriva (Tiotropium Elon) 18 Mcg Cap.w.dev 18 Mcg IH DAILY 11/26/13 Reported Comments Chest x-ray reviewed 02/24/2020. Shows improving pleural effusions and CHF Impression . IMPRESSION: 1. Acute on chronic hypercapnic and hypoxic respiratory failure secondary to acute on chronic cor pulmonale, component of diastolic congestive heart failure and acute exacerbation of chronic obstructive pulmonary disease. In addition severe pulmonary hypertension is another strong contributor. 2. Abnormal chest x-ray revealed increasing bilateral interstitial infiltrates and pleural effusions consistent with heart failure. It is combination of diastolic congestive heart failure and acute on chronic right heart failure. Chest x-ray improved. Recent right heart cath findings does not suggest any significant LV contribution . Patient has normal left ventricular end-diastolic pressure 3. Underlying severe chronic obstructive pulmonary disease with chronic hypercapnia and chronic hypoxic respiratory failure. 4. Underlying obesity, hypoventilation syndrome and cor pulmonale. obstructive sleep apnea. 5. Chronic kidney disease. Recent acute decompensation. Now on IV fluids. 6. Paroxysmal atrial fibrillation. On chronic anticoagulation. 7. Severe protein-calorie malnutrition. 8. Status post right heart cath. Normal pulmonary capillary wedge pressure and left ventricular end-diastolic pressure. Severe pulmonary hypertension. 9. Atrial fibrillation. Currently on amiodarone and milrinone. Cardioversion scheduled for today Plan . Continue supplemental oxygen to keep oxygen saturations greater than 90%, patient is currently on BiPAP nightly and alternating with 10 L nasal cannula during the day. Clinically unchanged. Patient would benefit from Trilogy nocturnal ventilator to better control hypercapnia and prevent further hospitalizations instead of current BIPAP I have reviewed right heart cath findings recently with Dr. Denis. Patient has severe pulmonary hypertension. Patient has normal pulmonary capillary wedge pressure and left ventricular end-diastolic pressure. There was no response to adenosine. Patient's severe pulmonary hypertension is multifactorial and inclu tejas combination of severe COPD, obesity hypoventilation syndrome and obstructive sleep apnea. Patient would, however benefit from addition of vasodilator therapy. Revatio was restarted in-house. Further vasodilators will be arranged as an outpatient. In the meantime patient would be a candidate for trilogy nocturnal ventilator. . will also arrange outpatient follow-up with pulmonary hypertension clinic at [facility] Continue milrinone and amiodarone for atrial fibrillation per cardiology. Cardioversion scheduled for today. Follow chest x-ray improving.. Follow nephrology recommendations in regards to LUIS on CKD, avoid nephrotoxic medications, fluid challenge. Mild improvement in renal function Heparin per vascular surgery recommendations. May need to amputations in future Physical therapy/Occupational Therapy DVT/GI prophylaxis Discussed with RN Discussed with sane nurse and Dr. Grajeda. [facility] transfer on hold. IRAIS HICKS MD Feb 27, 2022 09:37
--- NOTE | 2022-02-27 09:58 | PDOC ---
[employer] PROGRESS NOTE Date of Service DOS: DATE: 02/27/22 TIME: 09:56 Chief Complaint Chief Complaint Acute hypoxic/hypercapnic respiratory failure requiring BiPAP support Abnormal CXR - possible gram-negative organisms possible aspiration Left 2nd toe ulcer - polymicrobial with pseudomonas, MRSA, enterococcus requiring multiple IV antibiotics Acute renal failure - vasomotor nephropathy. Prior Cr 1 2 months ago. Acute electrolyte derangementhyponatremia, likely hypervolemic Acute on chronic respiratory acidosis Lactic acidemia Elevated BNP suggestive of volume overload History of COPD History of diabetes mellitus type 2 History of tobacco misuse Severe pulmonary hypertension - WHO classes COPD and diastolic CHF, previously negative CTPA in August 2021. VQ scan to r/o chronic venous thrombo-embolism a nd autoimmune disorder workup not yet complete due to acute medical illness Plan: Continue supplemental oxygen to keep oxygen saturations greater than 90%, patient is currently on BiPAP nightly and alternating with 10 L nasal cannula during the day. likely needs vasodilator therapy. Needs eval for trilogy nocturnal ventilator. Patient should be further evaluated for LTAC Bronchodilators Follow chest x-ray improving.. Follow nephrology recommendations in regards to LUIS on CKD, avoid nephrotoxic medications, worsening creatinine. Consider fluid challenge. Heparin per vascular surgery recommendations. May need to amputations in future Physical therapy/Occupational Therapy DVT/GI prophylaxis Discussed with RN History of Present Illness History of Present Illness Mr Pelayo is a 57-year-old male with past medical history of CHF, COPD on 6 L home O2, diabetes mellitus 2 who comes in with shortness of breath for the past several weeks. The past few days has worsened to the point where he needed to come to the ED for further evaluation. Patient is on torsemide at home for his CHF. He is little confused and so dyspneic with NT proBNP greater than 13,000 dyspnea did improve with initial diuresis and increasing supplemental O2 and was placed on BiPAP with improvement and admitted for further care. 02/20: Overnight continued on BiPAP 14/7 with a 16rr, 60% FiO2 with ABG 7.2 96/64/88. Seen by podiatry for consideration of left second toe amputation and cardiology for consideration for aortogram with runoff given monophasic findings on left lower extremity arterial Doppler with no clear occlusive disease in the lower extremity. Shortness of breath and cough conversational dyspnea. Is able to talk through his BiPAP. No significant chest discomfort currently. 02/21: Seen on BiPAP 40% this morning. Has conversational dyspnea but otherwise he feels the shortness of breath improving. CR 2.6. No chest pain. Polymicrobial infection in his toe. 02/22/2022: No acute events overnight. Patient seen examined on commode. No dyspnea upon my encounter. Still on BiPAP at 40% and saturating 95%. Maintain saturation between 90 to 92%. Patient's chart, labs, images were reviewed and discussed with RN Consults: Cardiology, pulmonology, podiatry, vascular surgery 02/23: Patient evaluated examined at bedside. Up in chair on BiPAP. Said breathing does feel little bit improved but still pretty bad. Creatinine still elevated. Possible heart cath today. Discussed with bedside RN. 02/24: Patient evaluated examined at bedside. Resting in bed. Labored respirations. Reviewed blood culture results does have polymicrobial infection. Will consult ID today. Reviewed heart cath results and recommendations. May need transfer. Discussed with him oxygen requirement as well. He was on 6 L nasal cannula when I saw him does report he sometimes has to push up to 8 or 9 L at home. Also says his BiPAP is not working at home. Not clinically ready for discharge at this point. 02/25: Seen bedside. Taken off of BiPAP to breakfast requiring 2 L/min nasal cannula oxygen. He still has conversational dyspnea severe pulmonary hypertension per right heart catheterization with cardiology. Needs to continue with his pulmonary hypertension follow-up BP high risk for surgery though he does require eventual amputation of his fourth left toe due to his respiratory status being very tenuous this to be difficult. He is going to require long-term IV antibiotics and BiPAP and likely needs a trilogy device. He should be evaluated for LTACH. 02/26: Patient evaluated examined at bedside. On BiPAP when seen. Clinically about the same. Discussed with cardiology team reported they are planning for cardioversion tomorrow. Not planning on a transfer at this point. [facility] to see patient today about placement options. 02/27: Started on room audio for pulmonary hypertension treatment. Seen on BiPAP bedside. Still in atrial fibrillation going for cardioversion today not making excellent progress have discussed LTAC CH with cardiology nephrology and pulmonology. Creatinine 3.1, NA 132. Discussed with nephrology specifically he will need a renal biopsy at some point in the future though this is undetermined currently given the need for full anticoagulation and antiplatelet agents. Complex medical case will need long-term hospital care at [facility] Vitals/I&O Vitals/I&O: Vital Signs Date Time Temp Pulse Resp B/P (MAP) Pulse Ox O2 Delivery O2 Flow Rate FiO2 02/27/22 09:17 93 BiPAP/CPAP 02/27/22 08:48 87 111/58 02/27/22 08:00 50.0 02/27/22 07:00 97.7 22 97.7 I & O 02/26/22 02/26/22 02/27/22 15:00 23:00 07:00 Intake Total 200 ml 100 ml Output Total 1850 ml 650 ml 775 ml Balance -1850 ml -450 ml -675 ml Physical Exam Physical Exam: GENERAL: Alert, oriented gentleman, not in distress. VITAL SIGNS: Stable, afebrile. HEENT: NAD. NECK: Supple, no JVP, no lymphadenopathy. LUNGS: Clear. HEART: S1, S2, regular. ABDOMEN: Soft, nontender, no organomegaly. EXTREMITIES: Dry, cracked skin all over with venous insufficiency, stasis dermatitis, left fourth toe is gangrenous, it is dry gangrene; edema 2+; peripheral pulses not palpable secondary to edema. Rest of the skin exam is unremarkable. NEUROLOGIC: The patient is alert, awake, and appropriate. No focal neurologic deficit. General: Alert, Oriented X3, Cooperative Heart: Regular rate, Normal S1, Normal S2 Lungs: Other (Decreased breath sounds bilaterally) Abdomen: Normal bowel sounds, Soft, Other (Obese) Extremities: No clubbing, No cyanosis, Other (Bilateral lower extremity pitting edema) Skin: Other (Dry gangrene of the left fourth toe, no cellulitis, no drainage, no purulence, no malodor) Labs Labs: Laboratory Tests Test 02/26/22 11:19 02/26/22 16:41 02/26/22 20:48 02/27/22 04:00 Glucose (Fingerstick) 121 mg/dL (70-99) 143 mg/dL (70-99) 148 mg/dL (70-99) Sodium Level 132 mmol/L (136-145) Potassium Level 3.5 mmol/L (3.5-5.1) Chloride Level 95 mmol/L (98-107) Carbon Dioxide Level 31 mmol/L (21-32) Anion Gap 6 (6-14) Blood Urea Nitrogen 36 mg/dL (8-26) Creatinine 3.1 mg/dL (0.7-1.3) Estimated GFR (Cockcroft-Gault) 20.9 Glucose Level 122 mg/dL (70-99) Calcium Level 8.2 mg/dL (8.5-10.1) Test 02/27/22 07:19 Glucose (Fingerstick) 121 mg/dL (70-99) Assessment and Plan Assessmemt and Plan Problems Medical Problems: (1) Acute exacerbation of CHF (congestive heart failure) Status: Acute (2) Acute kidney injury Status: Acute (3) Hypoxia Status: Acute Comment Review of Relevant I have reviewed the following items wade (where applicable) has been applied. Medications: Current Medications Medications (Trade) Dose Ordered Sig/Theresa Route PRN Reason Start Time Stop Time Status Last Admin Dose Admin Piperacillin Sod/ Tazobactam Sod 4.5 gm/Dextrose 100 ml @ 200 mls/hr Q6HRS IV 02/26/22 12:00 02/27/22 06:03 Metoprolol Succinate (Toprol Xl) 50 mg DAILY PO 02/27/22 09:00 02/27/22 08:48 Sildenafil Citrate (Revatio) 20 mg BID PO 02/26/22 13:00 02/27/22 08:48 Amiodarone HCl 150 mg/Dextrose 103 ml @ 600 mls/hr 1X ONCE IV 02/26/22 13:30 02/26/22 13:40 DC 02/26/22 13:30 Amiodarone HCl 450 mg/Dextrose 259 ml @ 0 mls/hr CONT PRN IV SEE I/O RECORD 02/26/22 13:30 02/27/22 13:29 02/27/22 02:43 Ringer's Solution 1,000 ml @ 30 mls/hr Q24H IV 02/27/22 06:00 02/27/22 17:59 02/27/22 06:03 Furosemide (Lasix) 20 mg 1X ONCE IVP 02/26/22 16:15 02/26/22 16:16 DC 02/26/22 16:15 Justifications for Admission Other Justification Acute hypoxemic respiratory failure ABY GUERIN MD Feb 27, 2022 09:58
[2022-02-27] MEDS ORDERED: BENZOCAINE ONE 20% MUCOSAL SPRAY. MM (10:45)
[2022-02-27] MEDS ORDERED: LIDOCAINE 2% TOPICAL JELLY 30GM TUBE. TP ONE (10:45)
[2022-02-27] MEDS ORDERED: LIDOCAINE 2% VISCOUS 15 ML SOLUTION. SWSW ONE (10:45)
[2022-02-27 11:00] VITALS: BP 108/60
--- NOTE | 2022-02-27 11:28 | PDOC ---
ULISES HOUGH PPAP COORDINATOR 02/27/22 1128: CARDIO Progress Notes Date and Time Date of Service 02/27/2022 Time of Evaluation 1115 Subjective Subjective: No Chest Pain, No Palpitations, Other (on bipap) Vitals Vitals Vital Signs Date Time Temp Pulse Resp B/P (MAP) Pulse Ox O2 Delivery O2 Flow Rate FiO2 02/27/22 11:17 97 BiPAP/CPAP 02/27/22 08:48 87 111/58 02/27/22 08:00 50.0 02/27/22 07:00 97.7 22 97.7 Weight Weight [ ] Input and Output Intake and Output Intake and Output 02/27/22 07:00 Intake Total 300 ml Output Total 3275 ml Balance -2975 ml Intake Oral 300 ml Output Urine Total 3275 ml Laboratory Labs Laboratory Tests Test 02/26/22 16:41 02/26/22 20:48 02/27/22 04:00 02/27/22 07:19 Glucose (Fingerstick) 143 mg/dL (70-99) 148 mg/dL (70-99) 121 mg/dL (70-99) Sodium Level 132 mmol/L (136-145) Potassium Level 3.5 mmol/L (3.5-5.1) Chloride Level 95 mmol/L (98-107) Carbon Dioxide Level 31 mmol/L (21-32) Anion Gap 6 (6-14) Blood Urea Nitrogen 36 mg/dL (8-26) Creatinine 3.1 mg/dL (0.7-1.3) Estimated GFR (Cockcroft-Gault) 20.9 Glucose Level 122 mg/dL (70-99) Calcium Level 8.2 mg/dL (8.5-10.1) Test 02/27/22 10:54 Glucose (Fingerstick) 106 mg/dL (70-99) Microbiology Micro Microbiology 02/21/22 Urine Culture - Final, Complete 02/19/22 Gram Stain - Final, Complete 02/19/22 Aerobic and Anaerobic Culture - Final, Complete Pseudomonas Aeruginosa Enterococcus Faecalis Staphylococcus Aureus (Mrsa) 02/19/22 Blood Culture - Final, Complete NO GROWTH AFTER 5 DAYS Physical Exam HEENT: Neck Supple W Full Motion Chest: Symmetric LUNGS: Other (diminished, bipap in place) Heart: irregularly irregular (AFIB) Abdomen: Soft N/T, Other (obese) Extremities: Other (3+ bilateral LE pitting edema, venous dermatitis) Neurology: alert, oriented, follow commands Assessment Assessment 1. Acute on chronic hypercapnic respiratory failure, AECOPD, CHF, cor pulmonale 2. Acute on chronic diastolic/systolic CHF: SOA better 3. Persistent AFIB with RVR: now controlled 4. DM2: per PCP 5. Hypertension: controlled 6. HLP 7. BALTA, obesity hypoventilation syndrome: poor bipap compliance, last use was 3 weeks ago 8. CAD; recent Moderate single-vessel coronary artery disease to LAD 9. LLE PAD with noted neuropathy and left 4th toe gangrene: stub toe [address] Hutson and Dr. Griggs following 10. LUIS: Cr 3. nephrology following 11. Severe pulmonary HTN/cor pulmonale: nml left sided filling pressure per RHC 12. NICM: potentially tachy mediated. EF at 25% Recommendations Bipap Continue milrinone. Lasix as needed Continue toprol. Discussed with Dr. Parsons and ok to start on amiodarone. Unable to proceed with REJI/CVN as pt still needing bipap Eliquis for stroke prevention Secondary prevention measures He has failed to follow up in office x2 and further failed to use his BiPAP but reported med compliance including eliquis. Discussed treatment adherance. He was suppose to be set for CVN as an outpt but failed to f/u with Dr. Crawford Ongoing lung optimization. Referral for outpt pulmonary HTN management. Justicifation of Admission Dx: Justifications for Admission: Justification of Admission Dx: Yes Respiratory Failure: Severe Resp Distress DARBY TUTTLE MD 02/27/22 4087: CARDIO Progress Notes Assessment Assessment Patient seen and examined He remains on BiPAP. I agree with our nurse practitioners assessment and plan. Acute on chronic hypercapnic respiratory failure, AECOPD, CHF, cor pulmonale Acute on chronic diastolic/systolic CHF: SOA better Persistent AFIB with RVR: now controlled. Continuing Eliquis and starting on amiodarone. Unable to proceed with REJI cardioversion secondary the patient remaining on BiPAP. DM2: per PCP Hypertension: controlled HLP BALTA, obesity hypoventilation syndrome: poor bipap compliance, last use was 3 weeks ago CAD; recent Moderate single-vessel coronary artery disease to LAD LLE PAD with noted neuropathy and left 4th toe gangrene: stub toe [address] Hutson and Dr. Griggs following LUIS: Cr 3. nephrology following Severe pulmonary HTN/cor pulmonale: nml left sided filling pressure per RHC NICM: potentially tachy mediated. EF at 25% ULISES HOUGH PPAP COORDINATOR Feb 27, 2022 11:28 DARBY TUTTLE MD Feb 27, 2022 17:37
[2022-02-27] MEDS ORDERED: FUROSEMIDE 20 MG/2 ML VIAL. IVP ONE (11:30)
[2022-02-27] MEDS ORDERED: AMIODARONE HCL 200 MG TABLET. PO SCH (12:00)
[2022-02-27] MEDS ORDERED: POTASSIUM CHLORIDE 20 MEQ TABLET.ER. PO ONE (12:30)
--- NOTE | 2022-02-27 12:54 | NUR ---
SS following up with discharge planning. SS reviewed pt chart and discussed with pt RN. Pt is currently on the BIPAP at 45%. COVID19 negative. Pt on Amiodarone drip. Pt on IV Zosyn and PO Zyvox. Pt unable to get Cardioversion today due to medical complexity. Pt accepted at [facility], ; fax [phone], and bed available at 1500. Physician notified. Currently awaiting orders. SS will continue to follow for discharge planning.
[2022-02-27] MEDS ORDERED: PHENYLEPHRINE in 0.9% NACL PF 1 MG/10 ML SYRINGE. IV ONE (13:01)
[2022-02-27] MEDS ORDERED: ePHEDrine PF IN SALINE 50 MG/10 ML SYRINGE. IV ONE (13:01)
--- NOTE | 2022-02-27 13:18 | PDOC ---
Infectious Disease Note Subjective Subjective pt is feeling ok still on BiPAP ROS ROS No nausea vomiting diarrhea Vital Sign Vital Signs Vital Signs Date Time Temp Pulse Resp B/P (MAP) Pulse Ox O2 Delivery O2 Flow Rate FiO2 02/27/22 11:17 97 BiPAP/CPAP 02/27/22 11:00 97.6 79 20 108/60 (76) 97.6 02/27/22 08:00 50.0 Physical Exam PHYSICAL EXAM GENERAL: Alert, oriented gentleman, not in distress. VITAL SIGNS: Stable, afebrile. HEENT: NAD. NECK: Supple, no JVP, no lymphadenopathy. LUNGS: Clear. HEART: S1, S2, regular. ABDOMEN: Soft, nontender, no organomegaly. EXTREMITIES: Dry, cracked skin all over with venous insufficiency, stasis dermatitis, left fourth toe is gangrenous, it is dry gangrene; edema 2+; peripheral pulses not palpable secondary to edema. Rest of the skin exam is unremarkable. NEUROLOGIC: The patient is alert, awake, and appropriate. No focal neurologic deficit. Labs Lab Laboratory Tests Test 02/26/22 16:41 02/26/22 20:48 02/27/22 04:00 02/27/22 07:19 Glucose (Fingerstick) 143 mg/dL (70-99) 148 mg/dL (70-99) 121 mg/dL (70-99) Sodium Level 132 mmol/L (136-145) Potassium Level 3.5 mmol/L (3.5-5.1) Chloride Level 95 mmol/L (98-107) Carbon Dioxide Level 31 mmol/L (21-32) Anion Gap 6 (6-14) Blood Urea Nitrogen 36 mg/dL (8-26) Creatinine 3.1 mg/dL (0.7-1.3) Estimated GFR (Cockcroft-Gault) 20.9 Glucose Level 122 mg/dL (70-99) Calcium Level 8.2 mg/dL (8.5-10.1) Test 02/27/22 10:54 Glucose (Fingerstick) 106 mg/dL (70-99) Micro Microbiology 02/21/22 Urine Culture - Final, Complete 02/19/22 Gram Stain - Final, Complete 02/19/22 Aerobic and Anaerobic Culture - Final, Complete Pseudomonas Aeruginosa Enterococcus Faecalis Staphylococcus Aureus (Mrsa) 02/19/22 Blood Culture - Final, Complete NO GROWTH AFTER 5 DAYS Objective Assessment IMPRESSION: 1. Left fourth toe gangrene with osteomyelitis. 2. Chronic obstructive pulmonary disease . 3. Congestive heart failure. 4. Coronary artery disease. 5. Atrial fibrillation. 6. Renal insufficiency. Plan Plan of Care Continue antibiotics [facility] RONA NUGENT MD Feb 27, 2022 13:18
[2022-02-27 14:37] VITALS: BP 108/53
[2022-02-27 19:14] VITALS: BP 116/71
--- NOTE | 2022-02-27 19:30 | NUR ---
Pt sitting up in the chair assessment completed vss poc explained, pt request his pain medication to be given around 2230. Call light in reach will resume care and continue to monitor pt.
[2022-02-27] MEDS: ATORVASTATIN CALCIUM 20 MG TABLET PO SCH (21:21)
[2022-02-27] MEDS: MILRINONE 20MG/100ML PREMIX 100 ML IV PRN (21:22)
[2022-02-27] MEDS: oxyCODONE/APAP 5/325 1 TAB TABLET PO PRN (22:24)
[2022-02-27 23:23] VITALS: BP 108/55
[2022-02-28] MEDS: ALBUTEROL SULFATE 2.5 MG/3 ML NEBU. NEB PRN (02:13)
[2022-02-28 03:23] VITALS: BP 100/59
[2022-02-28] MEDS: PANTOPRAZOLE 40 MG TABLET.DR. PO SCH ×2 (05:06→08:38)
[2022-02-28] MEDS: SIMETHICONE 80 MG TAB.CHEW PO SCH ×3 (05:06→18:00)
[2022-02-28] MEDS: PIPERACILLIN/TAZOBACTAM 4.5 GM in IV DEXTROSE 5% 100ML 100 ML IV SCH ×3 (05:07→18:00)
[2022-02-28 07:00] VITALS: BP 121/60
[2022-02-28] MEDS: IPRATRPIUM/ALBUTEROL 0.5/2.5MG 3 ML NEBU. NEB SCH ×3 (07:22→15:21)
--- NOTE | 2022-02-28 08:09 | PDOC ---
PULMONARY PROGRESS NOTES DATE: 02/28/22 TIME: 08:07 Subjective on bipap 45% fio2 Patient is back and forth between BiPAP and 10 L nasal cannula. on home 02 9 lpm Revatio was started for severe pulmonary hypertension. Vitals Vital Signs Date Time Temp Pulse Resp B/P (MAP) Pulse Ox O2 Delivery O2 Flow Rate FiO2 02/28/22 07:25 93 BiPAP/CPAP 02/28/22 07:00 97.1 91 30 121/60 (80) 97.1 02/27/22 22:54 45.0 ROS: No Nausea, No Chest Pain, No Abdominal Pain, No Increase Cough General: Alert, Oriented X4, No acute distress HEENT: Other Lungs: Other (Decreased breath sounds bilaterally) Cardiovascular: S1, S2 Abdomen: Soft, Non-tender Neuro Exam: Alert Extremities: Other (2+ pitting edema and signs of venous stasis.) Skin: Warm, Dry Labs Laboratory Tests Test 02/26/22 11:19 02/26/22 16:41 02/26/22 20:48 02/27/22 04:00 Glucose (Fingerstick) 121 mg/dL (70-99) 143 mg/dL (70-99) 148 mg/dL (70-99) Sodium Level 132 mmol/L (136-145) Potassium Level 3.5 mmol/L (3.5-5.1) Chloride Level 95 mmol/L (98-107) Carbon Dioxide Level 31 mmol/L (21-32) Anion Gap 6 (6-14) Blood Urea Nitrogen 36 mg/dL (8-26) Creatinine 3.1 mg/dL (0.7-1.3) Estimated GFR (Cockcroft-Gault) 20.9 Glucose Level 122 mg/dL (70-99) Calcium Level 8.2 mg/dL (8.5-10.1) Test 02/27/22 07:19 02/27/22 10:54 02/27/22 16:14 02/27/22 21:19 Glucose (Fingerstick) 121 mg/dL (70-99) 106 mg/dL (70-99) 118 mg/dL (70-99) 124 mg/dL (70-99) Test 02/28/22 07:32 Glucose (Fingerstick) 107 mg/dL (70-99) Laboratory Tests Test 02/27/22 10:54 02/27/22 16:14 02/27/22 21:19 02/28/22 07:32 Glucose (Fingerstick) 106 mg/dL (70-99) 118 mg/dL (70-99) 124 mg/dL (70-99) 107 mg/dL (70-99) Medications Active Scripts Medications Dose Route/Sig Max Daily Dose Days Date Category Simethicone 80 Mg Tab.chew 0.5 Tab PO Q6HRS 12/19/21 Rx Insulin Lispro Kwikpen U-100 (Insulin Lispro) 100 Unit/1 Ml Insuln.pen 0-9 Unit SQ TIDACHC 12/19/21 Rx Potassium Chloride (Potassium Chloride) 20 Meq Tablet.er 20 Meq PO DAILYWBKFT 12/19/21 Rx Pantoprazole Sodium (Pantoprazole Sodium) 40 Mg Tablet.dr 40 Mg PO DAILYAC 12/19/21 Rx Colace (Docusate Sodium) 100 Mg Capsule 100 Mg PO DAILY 12/19/21 Rx Magnesium Oxide 400 Mg Tablet 400 Mg PO DAILY 12/19/21 Rx Acetaminophen 325 Mg Tablet 650 Mg PO PRN Q4HRS PRN 12/19/21 Rx Atorvastatin Calcium 20 Mg Tablet 20 Mg PO QHS 12/19/21 Rx Furosemide 40 Mg Tablet 3 Tab PO DAILY 12/03/21 Reported Eliquis (Apixaban) 5 Mg Tablet 5 Mg PO BID 09/30/21 Rx Diltiazem 24Hr Cd (Diltiazem HCl) 240 Mg Cap.er.24h 240 Mg PO DAILY 09/30/21 Rx Advair 500-50 Diskus (Fluticasone/Salmeterol) 1 Each Disk.w.dev 1 Puff INH BID 09/24/21 Reported Albuterol Sulfate Neb Soln (Albuterol Sulfate) 2.5 Mg/3 Ml Vial.neb 2.5 Mg NEB PRN Q4-6HRS PRN 06/12/21 Reported Glyxambi 25 mg-5 mg Tablet (Empagliflozin/Linagliptin) 1 Each Tablet 1 Each PO DAILY 01/03/21 Reported [Albuterol Sulfate] 2.5 MG/3 ML Nebu 2.5 Mg NEB PRN Q2HR PRN 09/26/14 Rx Metformin Hcl Er (Metformin Hcl) 500 Mg Tab.er.24 500 Mg PO BID 11/26/13 Reported Lisinopril 5 Mg Tablet 10 Mg PO DAILY 11/26/13 Reported Spiriva (Tiotropium Gerber) 18 Mcg Cap.w.dev 18 Mcg IH DAILY 11/26/13 Reported Comments Chest x-ray reviewed 02/24/2020. Shows improving pleural effusions and CHF Impression . IMPRESSION: 1. Acute on chronic hypercapnic and hypoxic respiratory failure secondary to acute on chronic cor pulmonale, component of diastolic congestive heart failure and acute exacerbation of chronic obstructive pulmonary disease. In addition severe pulmonary hypertension is another strong contributor. 2. Abnormal chest x-ray revealed increasing bilateral interstitial infiltrates and pleural effusions consistent with heart failure. It is combination of diastolic congestive heart failure and acute on chronic right heart failure. Chest x-ray improved. Recent right heart cath findings does not suggest any significant LV contribution . Patient has normal left ventricular end-diastolic pressure 3. Underlying severe chronic obstructive pulmonary disease with chronic hypercapnia and chronic hypoxic respiratory failure. 4. Underlying obesity, hypoventilation syndrome and cor pulmonale. obstructive sleep apnea. 5. Chronic kidney disease. Recent acute decompensation. Now on IV fluids. 6. Paroxysmal atrial fibrillation. On chronic anticoagulation. 7. Severe protein-calorie malnutrition. 8. Status post right heart cath. Normal pulmonary capillary wedge pressure and left ventricular end-diastolic pressure. Severe pulmonary hypertension. 9. Atrial fibrillation. Currently on amiodarone and milrinone. Cardioversion scheduled for today Plan . 02/28 02 titration to keep sat 90% bipap prn during day cont at night setting reviewed plan to get trilogy for home use BD revatio lose wt exercise eliquis abx refer to pulm htn clinic at increase activity discussed w rn rt pt 02/27 Continue supplemental oxygen to keep oxygen saturations greater than 90%, patient is currently on BiPAP nightly and alternating with 10 L nasal cannula during the day. Clinically unchanged. Patient would benefit from Trilogy nocturnal ventilator to better control hypercapnia and prevent further hospitalizations instead of current BIPAP I have reviewed right heart cath findings recently with Dr. Denis. Patient has severe pulmonary hypertension. Patient has normal pulmonary capillary wedge pressure and left ventricular end-diastolic pressure. There was no response to adenosine. Patient's severe pulmonary hypertension is multifactorial and includes combination of severe COPD, obesity hypoventilation syndrome and obstructive sleep apnea. Patient would, however benefit from addition of vasodilator therapy. Revatio was restarted in-house. Further vasodilators will be arranged as an outpatient. In the meantime patient would be a candidate for trilogy nocturnal ventilator. . will also arrange outpatient follow-up with pulmonary hypertension clinic at Bronchodilators Continue milrinone and amiodarone for atrial fibrillation per cardiology. Cardioversion scheduled for today. Follow chest x-ray improving.. Follow nephrology recommendations in regards to LUIS on CKD, avoid nephrotoxic medications, fluid challenge. Mild improvement in renal function Heparin per vascular surgery recommendations. May need to amputations in future Physical therapy/Occupational Therapy DVT/GI prophylaxis Discussed with RN Discussed with educational administration teacher and Dr. Grajeda. [facility] transfer on hold. GIBSON LYMAN MD Feb 28, 2022 08:09
[2022-02-28] MEDS: MAGNESIUM OXIDE 400 MG TABLET PO SCH (08:36)
[2022-02-28] MEDS: LINEZOLID 600 MG TABLET PO SCH (08:37)
[2022-02-28] MEDS: METOPROLOL SUCC 24HR ER 50 MG TAB.ER.24H. PO SCH (08:37)
[2022-02-28] MEDS: SILDENAFIL CITRATE 20 MG TABLET. PO SCH (08:37)
[2022-02-28] MEDS: APIXABAN 5 MG TABLET. PO SCH (08:37)
[2022-02-28] MEDS: DOCUSATE SODIUM 100 MG CAPSULE. PO SCH (08:37)
[2022-02-28] MEDS: ASPIRIN ENTERIC COATED 81 MG TABLET.DR. PO SCH (08:37)
[2022-02-28] MEDS: LACTOBACILLUS RHAMNOSUS GG 1 CAPSULE. PO SCH (08:38)
[2022-02-28] MEDS ORDERED: AMIODARONE HCL 200 MG TABLET. PO SCH (09:00)
--- NOTE | 2022-02-28 10:22 | PDOC ---
[employer] PROGRESS NOTE Date of Service DOS: DATE: 02/28/22 TIME: 10:17 Chief Complaint Chief Complaint Acute hypoxic/hypercapnic respiratory failure requiring BiPAP support -COPD, CHF, cor pulmonale Abnormal CXR - possible gram-negative organisms possible aspiration Left 2nd toe ulcer - polymicrobial with pseudomonas, MRSA, enterococcus requiring multiple IV antibiotics Acute renal failure - vasomotor nephropathy. Prior Cr 1 2 months ago. Acute electrolyte derangementhyponatremia, likely hypervolemic Acute on chronic respiratory acidosis Lactic acidemia Elevated BNP suggestive of volume overload History of COPD History of diabetes mellitus type 2 History of tobacco misuse Severe pulmonary hypertension - WHO classes COPD and diastolic CHF, previously negative CTPA in August 2021. Autoimmune disorder workup not yet complete Acute combined systolic diastolic CHF with EF 25 -continue on milrinone Atrial fibrillation with RVR -unable to cardiovert due to her persistent respiratory failure. Will continue amiodarone BALTA - on home CPAP/BIPAP, not using for 3 weeks prior to admit due to malfunction CAD -moderate LAD disease Plan: Continue supplemental oxygen to keep oxygen saturations greater than 90%, patient is currently on BiPAP nightly and alternating with 10 L nasal cannula during the day. likely needs vasodilator therapy. Needs eval for trilogy nocturnal ventilator. Patient should be further evaluated for LTAC Bronchodilators Follow chest x-ray improving.. Follow nephrology recommendations in regards to LUIS on CKD, avoid nephrotoxic medications, worsening creatinine. Consider fluid challenge. Eliquis per vascular surgery recommendations. May need to amputations in future Physical therapy/Occupational Therapy DVT/GI prophylaxis Discussed with RN History of Present Illness History of Present Illness Mr Pelayo is a 57-year-old male with past medical history of CHF, COPD on 6 L home O2, diabetes mellitus 2 who comes in with shortness of breath for the past several weeks. The past few days has worsened to the point where he needed to come to the ED for further evaluation. Patient is on torsemide at home for his CHF. He is little confused and so dyspneic with NT proBNP greater than 13,000 dyspnea did improve with initial diuresis and increasing supplemental O2 and was placed on BiPAP with improvement and admitted for further care. 02/20: Overnight continued on BiPAP 14/7 with a 16rr, 60% FiO2 with ABG 7.2 96/64/88. Seen by podiatry for consideration of left second toe amputation and cardiology for consideration for aortogram with runoff given monophasic findings on left lower extremity arterial Doppler with no clear occlusive disease in the lower extremity. Shortness of breath and cough conversational dyspnea. Is able to talk through his BiPAP. No significant chest discomfort currently. 02/21: Seen on BiPAP 40% this morning. Has conversational dyspnea but otherwise he feels the shortness of breath improving. CR 2.6. No chest pain. Polymicrobial infection in his toe. 02/22/2022: No acute events overnight. Patient seen examined on commode. No dyspnea upon my encounter. Still on BiPAP at 40% and saturating 95%. Maintain saturation between 90 to 92%. Patient's chart, labs, images were reviewed and discussed with RN Consults: Cardiology, pulmonology, podiatry, vascular surgery 02/23: Patient evaluated examined at bedside. Up in chair on BiPAP. Said breathing does feel little bit improved but still pretty bad. Creatinine still elevated. Possible heart cath today. Discussed with bedside RN. 02/24: Patient evaluated examined at bedside. Resting in bed. Labored respirations. Reviewed blood culture results does have polymicrobial infection. Will consult ID today. Reviewed heart cath results and recommendations. May need transfer. Discussed with him oxygen requirement as well. He was on 6 L nasal cannula when I saw him does report he sometimes has to push up to 8 or 9 L at home. Also says his BiPAP is not working at home. Not clinically ready for discharge at this point. 02/25: Seen bedside. Taken off of BiPAP to breakfast requiring 2 L/min nasal cannula oxygen. He still has conversational dyspnea severe pulmonary hypertension per right heart catheterization with cardiology. Needs to continue with his pulmonary hypertension follow-up BP high risk for surgery though he does require eventual amputation of his fourth left toe due to his respiratory status being very tenuous this to be difficult. He is going to require long-term IV antibiotics and BiPAP and likely needs a trilogy device. He should be evaluated for LTACH. 02/26: Patient evaluated examined at bedside. On BiPAP when seen. Clinically about the same. Discussed with cardiology team reported they are planning for cardioversion tomorrow. Not planning on a transfer at this point. [facility] to see patient today about placement options. 02/27: Started on revatio for pulmonary hypertension treatment. Seen on BiPAP bedside. Still in atrial fibrillation going for cardioversion today not making excellent progress have discussed LTAC CH with cardiology nephrology and pulmonology. Creatinine 3.1, NA 132. Discussed with nephrology specifically he will need a renal biopsy at some point in the future though this is undetermined currently given the need for full anticoagulation and antiplatelet agents. Complex medical case will need long-term hospital care at [facility] 02/28: Bedside working with therapy. He is having some right hip and thigh pain which is not new for him. Able to have a relieving bowel movement. Lyons catheter in place good urine output. Still on Zyvox and Zosyn for his toe infection. His REJI cardioversion was delayed due to persistent need for use for BiPAP. [facility] and will continue pulmonary hypertension treatment there on milrinone gtt. and transition to amiodarone p.o. Vitals/I&O Vitals/I&O: Vital Signs Date Time Temp Pulse Resp B/P (MAP) Pulse Ox O2 Delivery O2 Flow Rate FiO2 02/28/22 08:38 91 121/60 02/28/22 08:00 Bi-pap 45.0 02/28/22 07:25 93 02/28/22 07:00 97.1 30 97.1 I & O 02/27/22 02/27/22 02/28/22 15:00 23:00 07:00 Intake Total 0 ml 0 ml 600 ml Output Total 1400 ml 900 ml Balance 0 ml -1400 ml -300 ml Physical Exam Physical Exam: GENERAL: Alert, oriented gentleman, not in distress. VITAL SIGNS: Stable, afebrile. HEENT: NAD. NECK: Supple, no JVP, no lymphadenopathy. LUNGS: Clear. HEART: S1, S2, regular. ABDOMEN: Soft, nontender, no organomegaly. EXTREMITIES: Dry, cracked skin all over with venous insufficiency, stasis dermatitis, left fourth toe is gangrenous, it is dry gangrene; edema 2+; peripheral pulses not palpable secondary to edema. Rest of the skin exam is unremarkable. NEUROLOGIC: The patient is alert, awake, and appropriate. No focal neurologic deficit. General: Alert, Oriented X3, Cooperative Heart: Regular rate, Normal S1, Normal S2 Lungs: Other (Decreased breath sounds bilaterally) Abdomen: Normal bowel sounds, Soft, Other (Obese) Extremities: No clubbing, No cyanosis, Other (Bilateral lower extremity pitting edema) Skin: Other (Dry gangrene of the left fourth toe, no cellulitis, no drainage, no purulence, no malodor) Labs Labs: Laboratory Tests Test 02/27/22 10:54 02/27/22 16:14 02/27/22 21:19 02/28/22 07:32 Glucose (Fingerstick) 106 mg/dL (70-99) 118 mg/dL (70-99) 124 mg/dL (70-99) 107 mg/dL (70-99) Assessment and Plan Assessmemt and Plan Problems Medical Problems: (1) Acute exacerbation of CHF (congestive heart failure) Status: Acute (2) Acute kidney injury Status: Acute (3) Hypoxia Status: Acute Comment Review of Relevant I have reviewed the following items wade (where applicable) has been applied. Medications: Current Medications Medications (Trade) Dose Ordered Sig/Theresa Route PRN Reason Start Time Stop Time Status Last Admin Dose Admin Furosemide (Lasix) 20 mg 1X ONCE IVP 02/27/22 11:30 02/27/22 11:31 DC 02/27/22 11:30 Amiodarone HCl (Cordarone) 200 mg DAILY PO 02/28/22 09:00 02/28/22 08:38 Potassium Chloride (Klor-Con) 40 meq 1X ONCE PO 02/27/22 12:30 02/27/22 12:31 DC 02/27/22 12:30 Justifications for Admission Other Justification Acute hypoxemic respiratory failure ABY GUERIN MD Feb 28, 2022 10:22
--- NOTE | 2022-02-28 10:24 | PDOC3 ---
Discharge Summary Visit Information Date of Admission: Feb 19, 2022 Date of Discharge: Feb 28, 2022 Admitting Diagnosis: Acute combined CHF Final Diagnosis Problems Medical Problems: (1) Acute exacerbation of CHF (congestive heart failure) Status: Acute (2) Acute kidney injury Status: Acute (3) Hypoxia Status: Acute Brief Hospital Course Allergies Allergies Coded Allergies Type Severity Reaction Last Updated Verified I S O L A T I O N *CONTACT* Allergy Unknown 02/25/22 Yes No Known Medication Allergies Allergy Unknown 02/25/22 Yes Vital Signs Vital Signs Date Time Temp Pulse Resp B/P (MAP) Pulse Ox O2 Delivery O2 Flow Rate FiO2 02/28/22 08:38 91 121/60 02/28/22 08:00 Bi-pap 45.0 02/28/22 07:25 93 02/28/22 07:00 97.1 30 97.1 Lab Results Laboratory Tests Test 02/26/22 11:19 02/26/22 16:41 02/26/22 20:48 02/27/22 04:00 Glucose (Fingerstick) 121 mg/dL (70-99) 143 mg/dL (70-99) 148 mg/dL (70-99) Sodium Level 132 mmol/L (136-145) Potassium Level 3.5 mmol/L (3.5-5.1) Chloride Level 95 mmol/L (98-107) Carbon Dioxide Level 31 mmol/L (21-32) Anion Gap 6 (6-14) Blood Urea Nitrogen 36 mg/dL (8-26) Creatinine 3.1 mg/dL (0.7-1.3) Estimated GFR (Cockcroft-Gault) 20.9 Glucose Level 122 mg/dL (70-99) Calcium Level 8.2 mg/dL (8.5-10.1) Test 02/27/22 07:19 02/27/22 10:54 02/27/22 16:14 02/27/22 21:19 Glucose (Fingerstick) 121 mg/dL (70-99) 106 mg/dL (70-99) 118 mg/dL (70-99) 124 mg/dL (70-99) Test 02/28/22 07:32 Glucose (Fingerstick) 107 mg/dL (70-99) Laboratory Tests Test 02/27/22 10:54 02/27/22 16:14 02/27/22 21:19 02/28/22 07:32 Glucose (Fingerstick) 106 mg/dL (70-99) 118 mg/dL (70-99) 124 mg/dL (70-99) 107 mg/dL (70-99) Brief Hospital Course Mr Pelayo is a 57-year-old male with past medical history of CHF, COPD on 6 L home O2, diabetes mellitus 2, COPD on home IBPA who comes in with shortness of breath for the past several weeks. The past few days has worsened to the point where he needed to come to the ED for further evaluation. Patient is on torsemide at home for his CHF. He was initially a little confused and so dyspneic with NT proBNP greater than 13,000 dyspnea did improve with initial diuresis and increasing supplemental O2 and was placed on BiPAP with improvement and admitted for further care. 02/20: Overnight continued on BiPAP / with a 16rr, 60% FiO2 with ABG 7.2 96/64/88. Seen by podiatry for consideration of left second toe amputation and cardiology for consideration for aortogram with runoff given monophasic findings on left lower extremity arterial Doppler with no clear occlusive disease in the lower extremity. Shortness of breath and cough conversational dyspnea. Is able to talk through his BiPAP. No significant chest discomfort currently. 02/21: Seen on BiPAP 40% this morning. Has conversational dyspnea but otherwise he feels the shortness of breath improving. CR 2.6. No chest pain. Polymicrobial infection in his toe. 02/22/2022: No acute events overnight. Patient seen examined on commode. No dyspnea upon my encounter. Still on BiPAP at 40% and saturating 95%. Maintain saturation between 90 to 92%. Patient's chart, labs, images were reviewed and discussed with RN 02/23: Patient evaluated examined at bedside. Up in chair on BiPAP. Said breathing does feel little bit improved but still pretty bad. Creatinine still elevated. Possible heart cath today. Discussed with bedside RN. 02/24: Patient evaluated examined at bedside. Resting in bed. Labored respirations. Reviewed blood culture results does have polymicrobial infection. Will consult ID today. Reviewed heart cath results and recommendations. May need transfer. Discussed with him oxygen requirement as well. He was on 6 L nasal cannula when I saw him does report he sometimes has to push up to 8 or 9 L at home. Also says his BiPAP is not working at home. Not clinically ready for discharge at this point. 02/25: Seen bedside. Taken off of BiPAP to breakfast requiring 2 L/min nasal cannula oxygen. He still has conversational dyspnea severe pulmonary hypertension per right heart catheterization with cardiology. Needs to continue with his pulmonary hypertension follow-up BP high risk for surgery though he does require eventual amputation of his fourth left toe due to his respiratory status being very tenuous this to be difficult. He is going to require long-term IV antibiotics and BiPAP and likely needs a trilogy device. He should be evaluated for LTACH. 02/26: Patient evaluated examined at bedside. On BiPAP when seen. Clinically about the same. Discussed with cardiology team reported they are planning for cardioversion tomorrow. Not planning on a transfer at this point. [facility] to see patient today about placement options. 02/27: Started on revatio for pulmonary hypertension treatment. Seen on BiPAP be dside. Still in atrial fibrillation going for cardioversion today not making excellent progress have discussed LTAC CH with cardiology nephrology and pulmonology. Creatinine 3.1, NA 132. Discussed with nephrology specifically he will need a renal biopsy at some point in the future though this is undetermined currently given the need for full anticoagulation and antiplatelet agents. Complex medical case will need long-term hospital care at [facility] 02/28: Bedside working with therapy. He is having some right hip and thigh pain which is not new for him. Able to have a relieving bowel movement. Lyons catheter in place good urine output. Still on Zyvox and Zosyn for his toe infection. His REJI cardioversion was delayed due to persistent need for use for BiPAP. He has approval for LTACH and will continue pulmonary hypertension treatment there on milrinone gtt. and transition to amiodarone p.o. Consults: Pulmonology, cardiology, infectious disease, podiatry, vascular surgery Problem list: Acute hypoxic/hypercapnic respiratory failure requiring BiPAP support -COPD, CHF, cor pulmonale Abnormal CXR - possible gram-negative organisms possible aspiration Left 2nd toe ulcer - polymicrobial with pseudomonas, MRSA, enterococcus requiring multiple IV antibiotics Acute renal failure - vasomotor nephropathy. Prior Cr 1 2 months ago. Acute electrolyte derangementhyponatremia, likely hypervolemic Acute on chronic respiratory acidosis Lactic acidemia Elevated BNP suggestive of volume overload History of COPD History of diabetes mellitus type 2 History of tobacco misuse Severe pulmonary hypertension - WHO classes COPD and diastolic CHF, previously negative CTPA in August 2021. Autoimmune disorder workup not yet complete Acute combined systolic diastolic CHF with EF 25 -continue on milrinone Atrial fibrillation with RVR -unable to cardiovert due to her persistent respiratory failure. Will continue amiodarone BALTA - on home CPAP/BIPAP, not using for 3 weeks prior to admit due to malfunction CAD -moderate LAD disease Plan: Continue supplemental oxygen to keep oxygen saturations greater than 90%, patient is currently on BiPAP nightly and alternating with 10 L nasal cannula during the day. likely needs vasodilator therapy. Needs eval for trilogy nocturnal ventilator. Patient should be further evaluated for LTAC Bronchodilators Follow chest x-ray improving.. Follow nephrology recommendations in regards to LUIS on CKD, avoid nephrotoxic medications, worsening creatinine. Consider fluid challenge vs renal biopsy in future Eliquis per vascular surgery recommendations. May need to amputations in future Physical therapy/Occupational Therapy DVT/GI prophylaxis Discussed with RN Greater than 30 minutes spent on d/c to LTACH Discharge Information Condition at Discharge: Stable Follow Up: Weeks (1) Disposition/Orders: D/C to Another Facility ([facility]) Scheduled Apixaban (Eliquis) 5 Mg Tablet, 5 MG PO BID for stroke prevention for 30 Days, #60 Ref 2 Prescribed by: LEEROY LUIS MD on 09/30/211207 Last Action: Continued on 02/19/221446 by WAYLON LONG Atorvastatin Calcium (Atorvastatin Calcium) 20 Mg Tablet, 20 MG PO QHS for HLD for 30 Days, #30 Ref 5 Prescribed by: ABY GUERIN MD on 12/19/21905 Last Action: Continued on 02/19/221446 by WAYLON LONG Diltiazem HCl (Diltiazem 24Hr Cd) 240 Mg Cap.er.24h, 240 MG PO DAILY for heart rate for 30 Days, #30 Ref 2 Prescribed by: LEEROY LUIS MD on 09/30/211207 Last Action: Continued on 02/19/221446 by WAYLON LONG Docusate Sodium (Colace) 100 Mg Capsule, 100 MG PO DAILY for Constipation for 30 Days, #30 Prescribed by: ABY GUERIN MD on 12/19/21905 Last Action: Continued on 02/19/221446 by WAYLON LONG Empagliflozin/Linagliptin (Glyxambi 25 mg-5 mg Tablet) 1 Each Tablet, 1 EACH PO DAILY for dm, (Reported) Entered as Reported by: DAVID BENITEZ on 01/03/212257 Fluticasone/Salmeterol (Advair 500-50 Diskus) 1 Each Disk.w.dev, 1 PUFF INH BID for , (Reported) Entered as Reported by: Cortez Pimentel on 09/24/21 0557 Furosemide (Furosemide) 40 Mg Tablet, 3 TAB PO DAILY for CHF, #30 Ref 5 (Reported) Entered as Reported by: RAJAT ROBBINS on 12/03/216 Last Action: Continued on 02/19/221446 by WAYLON LONG Insulin Lispro (Insulin Lispro Kwikpen U-100) 100 Unit/1 Ml Insuln.pen, 0-9 UNIT SQ TIDACHC for DM2 for 30 Days, #1 Prescribed by: ABY GUERIN MD on 12/19/21905 Lisinopril (Lisinopril) 5 Mg Tablet, 10 MG PO DAILY for htn, (Reported) Entered as Reported by: OMAIRA MAHER on 11/26/130 Last Action: HELD on 02/19/221446 by WAYLON LONG Magnesium Oxide (Magnesium Oxide) 400 Mg Tablet, 400 MG PO DAILY for CHF for 30 Days, #30 Prescribed by: ABY GUERIN MD on 12/19/21905 Last Action: Continued on 02/19/221446 by WAYLON LONG Metformin Hcl (Metformin Hcl Er) 500 Mg Tab.er.24, 500 MG PO BID, (Reported) Entered as Reported by: OMAIRA MAHER on 11/26/13 1510 Pantoprazole Sodium (Pantoprazole Sodium ) 40 Mg Tablet.dr, 40 MG PO DAILYAC for GERD for 30 Days, #30 Prescribed by: ABY GUERIN MD on 12/19/21905 Last Action: Continued on 02/19/221446 by WAYLON LONG Potassium Chloride (Potassium Chloride ) 20 Meq Tablet.er, 20 MEQ PO DAILYWBKFT for CHF for 30 Days, #30 Prescribed by: ABY GUERIN MD on 12/19/21905 Last Action: HELD on 02/19/221446 by WAYLON LONG Simethicone (Simethicone) 80 Mg Tab.chew, 0.5 TAB PO Q6HRS for gas for 10 Days, #20 Ref 0 Prescribed by: ABY GUERIN MD on 12/19/21905 Last Action: Continued on 02/19/221446 by WAYLON LONG Tiotropium [place] (Spiriva) 18 Mcg Cap.w.dev, 18 MCG IH DAILY, (Reported) Entered as Reported by: OMAIRA MAHER on 11/26/13 1510 Last Action: Converted on 02/19/221446 by WAYLON LONG Scheduled PRN Acetaminophen (Acetaminophen) 325 Mg Tablet, 650 MG PO PRN Q4HRS PRN for TEMP OVER 100.4F OR MILD PAIN for 30 Days, #120 Prescribed by: ABY GUERIN MD on 12/19/21905 Last Action: Continued on 02/19/221446 by WAYLON LONG Albuterol Sulfate (Albuterol Sulfate Neb Soln) 2.5 Mg/3 Ml Vial.neb, 2.5 MG NEB PRN Q4-6HRS PRN for SHORTNESS OF BREATH, Ref 0 (Reported) Entered as Reported by: LORNA BERAD RN on 06/12/212053 Last Action: Continued on 02/19/221446 by WAYLON LONG [Albuterol Sulfate] 2.5 MG/3 ML NEBU, 2.5 MG NEB PRN Q2HR PRN for DYSPNEA, #120 Ref 3 Prescribed by: AMPARO CESAR on 09/26/14 1342 Justicifation of Admission Dx: Justifications for Admission: Justification of Admission Dx: Yes Respiratory Failure: Severe Resp Distress ABY GUERIN MD Feb 28, 2022 10:24
[2022-02-28 10:39] VITALS: BP 110/65
--- NOTE | 2022-02-28 11:06 | PDOC ---
PROGRESS NOTES Date of Service: DATE: 02/28/22 TIME: 11:06 Subjective Subjective Still needing BiPAP Objective Objective Vital Signs Date Time Temp Pulse Resp B/P (MAP) Pulse Ox O2 Delivery O2 Flow Rate FiO2 02/28/22 10:39 97.7 96 21 110/65 (80) 95 BiPAP/CPAP 97.7 02/28/22 08:00 45.0 Intake and Output 02/28/22 07:00 Intake Total 600 ml Output Total 2300 ml Balance -1700 ml Intake Oral 600 ml Output Urine Total 2300 ml Physical Exam Abdomen: Normal bowel sounds, Soft, Other (Obese) Heart: Regular rate, Normal S1, Normal S2 Extremities: No clubbing, No cyanosis, Other (Bilateral lower extremity pitting edema) General: Alert, Oriented X3, Cooperative HEENT: Atraumatic, PERRLA Lungs: Clear to auscultation, Normal air movement MUSCULOSKELETAL: Osteoarthritic changes both hands Neuro: Normal speech, Strength at 5/5 X4 ext, Sensation intact, Cranial nerves 3-12 NL Psych/Mental Status: Mental status NL, Mood NL Skin: Other (Dry gangrene of the left fourth toe, no cellulitis, no drainage, no purulence, no malodor) Assessment Assessment 1. Acute on chronic hypercapnic respiratory failure, AECOPD, CHF, cor pulmonale 2. Acute on chronic diastolic/systolic CHF: SOA better 3. Persistent AFIB with RVR: now controlled 4. DM2: per PCP 5. Hypertension: controlled 6. HLP 7. BALTA, obesity hypoventilation syndrome: poor bipap compliance, last use was 3 weeks ago 8. CAD; recent Moderate single-vessel coronary artery disease to LAD 9. LLE PAD with noted neuropathy and left 4th toe gangrene: stub toe [address] Hutson and Dr. Griggs following 10. LUIS: Cr 3. nephrology following 11. Severe pulmonary HTN/cor pulmonale: nml left sided filling pressure per RHC 12. NICM: potentially tachy mediated. EF at 25% Recommendations Bipap - pulm following Continue milrinone. Lasix as needed Continue toprol. Discussed with Dr. Parsons and ok to start on amiodarone. Unable to proceed with REJI/CVN as pt still needing bipap Eliquis for stroke prevention Secondary prevention measures Revatio for severe pulm HTN Plan Plan of Care Problems Medical Problems: (1) Acute exacerbation of CHF (congestive heart failure) Status: Acute (2) Acute kidney injury Status: Acute (3) Hypoxia Status: Acute Comment Review of Relevant I have reviewed the following items wade (where applicable) has been applied. Labs Laboratory Tests Test 02/27/22 16:14 02/27/22 21:19 02/28/22 07:32 Glucose (Fingerstick) 118 mg/dL (70-99) 124 mg/dL (70-99) 107 mg/dL (70-99) Microbiology 02/21/22 Urine Culture - Final, Complete 02/19/22 Gram Stain - Final, Complete 02/19/22 Aerobic and Anaerobic Culture - Final, Complete Pseudomonas Aeruginosa Enterococcus Faecalis Staphylococcus Aureus (Mrsa) 02/19/22 Blood Culture - Final, Complete NO GROWTH AFTER 5 DAYS Medications Current Medications Amiodarone HCl (Cordarone) 200 mg DAILY PO ; Start 02/27/22 at 12:00; Stop 02/27/22 at 11:54; Status DC Amiodarone HCl (Cordarone) 200 mg DAILY PO Last administered on 02/28/22at 08:38; Start 02/28/22 at 09:00 Ephedrine Sulfate (ePHEDrine PF IN SALINE SYRINGE) 50 mg STK-MED ONCE IV ; Sta rt 02/27/22 at 13:01; Stop 02/27/22 at 13:01; Status DC Furosemide (Lasix) 20 mg 1X ONCE IVP Last administered on 02/27/22at 11:30; Start 02/27/22 at 11:30; Stop 02/27/22 at 11:31; Status DC Phenylephrine HCl (PHENYLEPHRINE in 0.9% NACL PF) 1 mg STK-MED ONCE IV ; Start 02/27/22 at 13:01; Stop 02/27/22 at 13:01; Status DC Potassium Chloride (Klor-Con) 40 meq 1X ONCE PO Last administered on 02/27/22at 12:30; Start 02/27/22 at 12:30; Stop 02/27/22 at 12:31; Status DC Vitals/I & O Vital Sign - Last 24 Hours 02/27/22 02/27/22 02/27/22 02/27/22 11:16 11:17 14:37 16:00 Temp 97.7 97.7 Pulse 94 B/P (MAP) 108/53 (71) Pulse Ox 97 97 91 92 O2 Delivery BiPAP/CPAP BiPAP/CPAP BiPAP/CPAP BiPAP/CPAP 02/27/22 02/27/22 02/27/22 02/27/22 16:01 18:24 19:01 19:14 Temp 97.3 97.3 Pulse 95 Resp 22 B/P (MAP) 116/71 (86) Pulse Ox 93 93 96 94 O2 Delivery BiPAP/CPAP BiPAP/CPAP BiPAP/CPAP BiPAP/CPAP O2 Flow Rate 02/27/22 02/27/22 02/27/22 02/27/22 19:30 21:21 22:24 22:46 Pulse 110 Resp 20 B/P (MAP) 116/71 Pulse Ox 94 93 O2 Delivery Bi-pap BiPAP/CPAP BiPAP/CPAP O2 Flow Rate 45.0 45.0 02/27/22 02/27/22 02/28/22 02/28/22 22:54 23:23 00:32 02:13 Temp 97.5 97.5 Pulse 104 Resp 20 20 B/P (MAP) 108/55 (72) Pulse Ox 93 93 94 98 O2 Delivery BiPAP/CPAP BiPAP/CPAP BiPAP/CPAP BiPAP/CPAP O2 Flow Rate 45.0 02/28/22 02/28/22 02/28/22 02/28/22 03:23 05:01 07:00 07:24 Temp 97.7 97.1 97.7 97.1 Pulse 91 91 Resp 24 30 B/P (MAP) 100/59 (73) 121/60 (80) Pulse Ox 95 95 96 93 O2 Delivery BiPAP/CPAP BiPAP/CPAP BiPAP/CPAP BiPAP/CPAP 02/28/22 02/28/22 02/28/22 02/28/22 07:25 08:00 08:37 08:37 Pulse 91 91 B/P (MAP) 121/60 121/60 Pulse Ox 93 O2 Delivery BiPAP/CPAP Bi-pap O2 Flow Rate 45.0 02/28/22 02/28/22 08:38 10:39 Temp 97.7 97.7 Pulse 91 96 Resp 21 B/P (MAP) 121/60 110/65 (80) Pulse Ox 95 O2 Delivery BiPAP/CPAP Intake and Output 02/27/22 02/27/22 02/28/22 15:00 23:00 07:00 Intake Total 0 ml 0 ml 600 ml Output Total 1400 ml 900 ml Balance 0 ml -1400 ml -300 ml JENNIFFER ROTHMAN MD Feb 28, 2022 11:06
[2022-02-28] MEDS: MILRINONE 20MG/100ML PREMIX 100 ML IV PRN (14:08)
--- NOTE | 2022-02-28 14:20 | PDOC ---
DATE OF SERVICE DATE: 02/28/22 TIME: 14:20 SUBJECTIVE ROS No acute concerns, Stable . On BiPAP when seen. . OBJECTIVE Vital Signs Vital Signs Date Time Temp Pulse Resp B/P (MAP) Pulse Ox O2 Delivery O2 Flow Rate FiO2 02/28/22 12:30 94 BiPAP/CPAP 02/28/22 10:39 97.7 96 21 110/65 (80) 97.7 02/28/22 08:00 45.0 I & 0 Intake and Output 02/28/22 07:00 Intake Total 600 ml Output Total 2300 ml Balance -1700 ml Intake Oral 600 ml Output Urine Total 2300 ml PHYSICAL EXAM Physical Exam eneral: Alert, Oriented X3, Mild distress, HEENT: Atraumatic, PERRLA, On O2 by NC Neck Supple Lungs: Decreased at bases ant, Heart: irregularly irregular, Abdomen: Normal bowel sounds, Obese Extremities: edema +, Changes of CVI +; left foot there is black dry gangrene of the fourth toe, no surrounding erythema or drainage Skin: No rash Neuro: Grossly normal , moving al extrem Psych/Mental Status: cooperative Lyons +, No CVA or SP tenderness DIAGNOSIS/ASSESSMENT Assessment & Plan LUIS Cardiorenal/ ATN / Renal US unremarkable .Non Oliguric, Creat stable , No labs today , ordered for tomorrow Supportive care , maintain fluid balance., avoid overdiuresis Avoid Nephrotoxins (was getting IV Vanc ) Baseline Cr 0.7-0.9; 1.1 since Nov 2021- hospitalized at [facility] . Microscopic hematuria- UA with Blood and RBC's repeat same - - Lyons sample UA in May 2021 Unremarkable , No RBC's . Proteunuria- nephrotic range- Lyons sample , Uncontrolled DM history . 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 Multiple comorbidities Infection /Cardiac and Pulm issues ,on anticoagulation and antiplatelet agents. Acute hypoxic/hypercapnic respiratory failure requiring BiPAP support- Uses O2 and Bipap at home as well(Non compliant) Blood culture have polymicrobial infection. ID managing CHF- card managing diuretics . Rt heart cath - Pulm HTN Persistent AFIB with RVR:scheduled for cardioversion today Dry gangrene of the left fourth toe. Will need Amputation, Non Urgent . Discussed with Dr Martinez, planning to hold for now 2/2 LUIS, Non urgent History of COPD History of diabetes mellitus type 2 History of tobacco misuse COMMENT/RELEVANT DATA Meds Current Medications Medications (Trade) Dose Ordered Sig/Threesa Start Time Stop Time Status Last Admin Dose Admin Acetaminophen (Tylenol) 650 mg PRN Q4HRS PRN 02/19/22 14:45 Adenosine (Adenoscan) 90 mg STK-MED ONCE 02/23/22 14:32 02/23/22 14:33 DC Albuterol Sulfate (Ventolin Neb Soln) 2.5 mg PRN Q4HRS PRN 02/19/22 14:45 02/28/22 02:13 2.5 MG Albuterol/ Ipratropium (Duoneb) 3 ml RTQID 02/19/22 16:00 02/28/22 11:33 3 ML Amiodarone HCl (Cordarone) 200 mg DAILY 02/28/22 09:00 02/28/22 08:38 200 MG Amiodarone HCl 150 mg/Dextrose 103 ml @ 600 mls/hr 1X ONCE 02/26/22 13:30 02/26/22 13:40 DC 02/26/22 13:30 600 MLS/HR Amiodarone HCl 450 mg/Dextrose 259 ml @ 0 mls/hr CONT PRN 02/26/22 13:30 02/27/22 13:29 DC 02/27/22 02:43 16.7 MLS/HR Apixaban (Eliquis) 5 mg BID 02/24/22 13:00 02/28/22 08:37 5 MG Aspirin (Ecotrin) 81 mg [id number] 02/21/22 15:00 02/28/22 08:37 81 MG Atorvastatin Calcium (Lipitor) 20 mg QHS 02/19/22 21:00 02/27/22 21:21 20 MG Benzocaine (Hurricaine One) 2 spray 1X ONCE 02/27/22 10:45 02/27/22 10:48 DC Digoxin (Lanoxin) 500 mcg 1X ONCE 02/20/22 11:30 02/20/22 11:31 DC 02/20/22 11:30 500 MCG Diltiazem HCl (Cardizem 24hr Cd) 240 mg DAILY 02/20/22 09:00 02/26/22 10:49 DC 02/26/22 08:57 240 MG Docusate Sodium (Colace) 100 mg DAILY 02/20/22 09:00 02/28/22 08:37 100 MG Ephedrine Sulfate (ePHEDrine PF IN SALINE SYRINGE) 50 mg STK-MED ONCE 02/27/22 13:01 02/27/22 13:01 DC Fentanyl Citrate (Fentanyl 2ml Vial) 50 mcg PRN Q5MIN PRN 02/27/22 06:00 02/28/22 05:59 DC Furosemide (Lasix) 20 mg 1X ONCE 02/27/22 11:30 02/27/22 11:31 DC 02/27/22 11:30 20 MG Heparin Sodium (Porcine) (Heparin Sodium) 2,500 unit 1X ONCE 02/23/22 14:30 02/23/22 14:34 DC 02/23/22 14:30 2,500 UNIT Heparin Sodium/ Dextrose 250 ml @ 10 mls/hr CONT PRN 02/20/22 19:45 02/24/22 12:40 DC 02/24/22 08:57 30.1 MLS/HR Heparin Sodium/ Sodium Chloride (HEPARIN for ARTERIAL LINE FLUSH) 1,000 unit 1X ONCE 02/23/22 14:15 02/23/22 14:23 DC 02/23/22 14:15 1,000 UNIT Hydromorphone HCl (Dilaudid) 0.5 mg PRN Q10MIN PRN 02/27/22 06:00 02/28/22 05:59 DC Info (Anti-Coagulation Monitoring By Pharmacy) 1 each PRN DAILY PRN 02/19/22 15:15 02/23/22 16:38 1 EACH Lactobacillus Rhamnosus (Culturelle) 1 cap BID 02/20/22 09:00 02/28/22 08:38 1 CAP Lidocaine HCl (Lidocaine 1% 20ml Vial) 20 ml STK-MED ONCE 02/23/22 13:25 02/23/22 13:26 DC Lidocaine HCl (Lidocaine 2% 20ml Vial) 2 ml 1X ONCE 02/23/22 14:15 02/23/22 14:24 DC 02/23/22 14:15 3 ML Lidocaine HCl (Viscous Lidocaine) 15 ml 1X ONCE 02/27/22 10:45 02/27/22 10:48 DC Lidocaine HCl (Xylocaine 2% Topical 30gm Tube) 1 estrellita 1X ONCE 02/27/22 10:45 02/27/22 10:48 DC Linezolid (Zyvox) 600 mg BID 02/24/22 21:00 02/28/22 08:37 600 MG Magnesium Oxide (Magnesium Oxide) 400 mg DAILY 02/20/22 09:00 02/28/22 08:36 400 MG Metoprolol Succinate (Toprol Xl) 50 mg DAILY 02/27/22 09:00 02/28/22 08:37 50 MG Milrinone Lactate/ Dextrose 100 ml @ 5.074 mls/ hr CONT PRN 02/25/22 12:00 02/28/22 14:08 5.074 MLS/HR Morphine Sulfate (Morphine Sulfate) 1 mg PRN Q10MIN PRN 02/27/22 06:00 02/28/22 05:59 DC Nitroglycerin (Nitroglycerin) 200 mcg 1X ONCE 02/23/22 14:30 02/23/22 14:34 DC 02/23/22 14:30 200 MCG Oxycodone/ Acetaminophen (Percocet 5/325) 1 tab PRN Q4HRS PRN 02/20/22 23:30 02/27/22 22:24 1 TAB Pantoprazole Sodium (Protonix) 40 mg DAILYAC 02/20/22 07:30 02/28/22 08:38 40 MG Perflutren Protein Type A Microsphe (Optison) 0.66 mg 1X ONCE 02/24/22 07:00 02/24/22 07:01 DC 02/24/22 07:00 0.66 MG Phenylephrine HCl (PHENYLEPHRINE in 0.9% NACL PF) 1 mg STK-MED ONCE 02/27/22 13:01 02/27/22 13:01 DC Piperacillin Sod/ Tazobactam Sod (Zosyn Per Pharmacy) 1 each PRN DAILY PRN 02/19/22 17:15 Piperacillin Sod/ Tazobactam Sod 3.375 gm/Sodium Chloride 50 ml @ 100 mls/hr Q6HRS 02/25/22 18:00 02/26/22 09:35 DC 02/26/22 05:30 100 MLS/HR Piperacillin Sod/ Tazobactam Sod 4.5 gm/Dextrose 100 ml @ 200 mls/hr Q6HRS 02/26/22 12:00 02/28/22 11:03 200 MLS/HR Potassium Chloride (Klor-Con) 40 meq 1X ONCE 02/27/22 12:30 02/27/22 12:31 DC 02/27/22 12:30 40 MEQ Prochlorperazine Edisylate (Compazine) 5 mg PACU PRN PRN 02/27/22 06:00 02/28/22 05:59 DC Ringer's Solution 1,000 ml @ 30 mls/hr Q24H 02/27/22 06:00 02/27/22 17:59 DC 02/27/22 06:03 30 MLS/HR Sildenafil Citrate (Revatio) 20 mg BID 02/26/22 13:00 02/28/22 08:37 20 MG Simethicone (Gas-X) 40 mg Q6HRS 02/19/22 18:00 02/28/22 11:03 40 MG Sodium Chloride (Normal Saline Flush) 10 ml QSHIFT PRN 02/26/22 12:30 Vancomycin HCl (Vanco Per Pharmacy) 1 each PRN DAILY PRN 02/23/22 12:30 02/24/22 13:49 DC 02/23/22 14:16 1 EACH Vancomycin HCl (Vancomycin Random Level) 1 each 1X ONCE 02/24/22 16:00 02/24/22 16:01 Cancel Vancomycin HCl 2 gm/Sodium Chloride 500 ml @ 250 mls/hr 1X ONCE 02/23/22 13:00 02/23/22 14:59 DC 02/23/22 16:08 250 MLS/HR Verapamil HCl (Verapamil) 2.5 mg 1X ONCE 02/23/22 14:30 02/23/22 14:34 DC 02/23/22 14:30 2.5 MG Lab Laboratory Tests Test 02/27/22 16:14 02/27/22 21:19 02/28/22 07:32 Glucose (Fingerstick) 118 mg/dL (70-99) 124 mg/dL (70-99) 107 mg/dL (70-99) Results All relevant outside records, renal labs, imaging studies, telemetry/EKG's were reviewed. Justicifation of Admission Dx: Justifications for Admission: Justification of Admission Dx: Yes Respiratory Failure: Severe Resp Distress BLAS ORR MD Feb 28, 2022 14:20
[2022-02-28 15:00] VITALS: BP 116/65
== END 2022-02-28 18:25 | DRG 286 ==
LOC: ER 11:04 → 6 SOUTH 11:48 → ER 13:11
PROVIDERS: ADMIT Internal Medicine; ATTEND Internal Medicine
PROC: 5A09557 Assistance with Respiratory Ventilation, Greater than 96 Consecutive Hours, Continuous Positive Airway Pressure (ICD-10-PCS; principal; 2022-02-19)
PROC: 4A023N8 Measurement of Cardiac Sampling and Pressure, Bilateral, Percutaneous Approach (ICD-10-PCS; 2022-02-23)
PROC: B2111ZZ Fluoroscopy of Multiple Coronary Arteries using Low Osmolar Contrast (ICD-10-PCS; 2022-02-23)
DX: I13.0 Hypertensive heart and chronic kidney disease with heart failure and stage 1 through stage 4 chronic kidney disease, or unspecified chronic kidney disease (principal); J96.22 Acute and chronic respiratory failure with hypercapnia; E43 Unspecified severe protein-calorie malnutrition; I26.09 Other pulmonary embolism with acute cor pulmonale; J96.21 Acute and chronic respiratory failure with hypoxia; N17.0 Acute kidney failure with tubular necrosis; I50.43 Acute on chronic combined systolic (congestive) and diastolic (congestive) heart failure; E11.52 Type 2 diabetes mellitus with diabetic peripheral angiopathy with gangrene; E66.2 Morbid (severe) obesity with alveolar hypoventilation; I48.19 Other persistent atrial fibrillation; J44.1 Chronic obstructive pulmonary disease with (acute) exacerbation; M86.9 Osteomyelitis, unspecified; R65.10 Systemic inflammatory response syndrome (SIRS) of non-infectious origin without acute organ dysfunction; I42.8 Other cardiomyopathies; E11.22 Type 2 diabetes mellitus with diabetic chronic kidney disease; E11.42 Type 2 diabetes mellitus with diabetic polyneuropathy; E11.621 Type 2 diabetes mellitus with foot ulcer; E11.69 Type 2 diabetes mellitus with other specified complication; E78.5 Hyperlipidemia, unspecified; I25.10 Atherosclerotic heart disease of native coronary artery without angina pectoris; I27.20 Pulmonary hypertension, unspecified; I50.82 Biventricular heart failure; J84.10 Pulmonary fibrosis, unspecified; L08.9 Local infection of the skin and subcutaneous tissue, unspecified; L97.529 Non-pressure chronic ulcer of other part of left foot with unspecified severity; N18.9 Chronic kidney disease, unspecified; Z82.49 Family history of ischemic heart disease and other diseases of the circulatory system; Z83.3 Family history of diabetes mellitus; Z87.01 Personal history of pneumonia (recurrent); Z87.891 Personal history of nicotine dependence; Z91.19 Patient's noncompliance with other medical treatment and regimen; Z99.81 Dependence on supplemental oxygen; K21.9 Gastro-esophageal reflux disease without esophagitis
CPT/HCPCS: 93453; 93463; 96374; 99285; C8929; 36415; 36600; 71045; 73630; 74176; 76770; 76937; 80048; 80053; 80069; 80076; 81001; 82550; 82570; 82805; 82962; 83605; 83690; 83735; 83880; 84156; 84484; 85025; 85027; 85520; 85610; 85730; 87040; 87075; 87077; 87086; 87186; 87428; 93005; 93451; 93926; 94640; 94660; 94760; C1773; C1894; J0282; J1160; J1644; J1940; J2260; J2370; J2543; J3370; J3490; J7040; J7060; J7120; Q9956; U0003; 97530-GO; 97530-GP; 97535-GO; G0378; J7613

== ENCOUNTER 2022-03-16 20:15 | Inpatient (IN) | payer MEDICARE ==
[~2022-03-16] VITALS: Ht 190.5 cm; Wt 140.2 kg
[2022-03-16 20:39] LABS: HEMOGLOBIN 8.7 g/dL (13.0-17.5); RED BLOOD COUNT 2.68 x10^6/uL (4.30-5.70); RED CELL DISTRIBUTION WIDTH 14.6 % (11.5-14.5); WHITE BLOOD COUNT 14.1 x10^3/uL (4.0-11.0)
[2022-03-16 20:47] LABS: BACTERIA,URINE MANY /HPF (0-FEW); RBC,URINE TNTC /HPF (0-2); WBC,URINE TNTC /HPF (0-4); YEAST,URINE PRESENT /HPF
[2022-03-16 20:58] LABS: CALCIUM 8.2 mg/dL (8.5-10.1); CREATININE 3.7 mg/dL (0.7-1.3); GFR 17.1
[2022-03-16] MEDS ORDERED: oxyCODONE IR 5 MG TABLET PO ONE (21:00)
[2022-03-16 21:03] LABS: ALBUMIN 2.2 g/dL (3.4-5.0); ALBUMIN/GLOBULIN RATIO 0.6 (1.0-1.7); TOTAL BILIRUBIN 0.7 mg/dL (0.2-1.0); TOTAL PROTEIN 5.7 g/dL (6.4-8.2)
[2022-03-16 21:34] LABS: PROTHROMBIN TIME PATIENT 15.6 SEC (11.7-14.0)
--- NOTE | 2022-03-16 21:47 | PHYS DOC ---
Past Medical History Past Medical History: CHF, COPD, Diabetes-Type II Additional Past Medical Histor: History of COPD on 6 L of home oxygen, history of CHF on torsemide Past Surgical History: Cholecystectomy Additional Past Surgical Histo: vasectomy Smoking Status: Former Smoker Alcohol Use: None Drug Use: None Adult General Chief Complaint Chief Complaint: BLOOD IN URINE HPI HPI The patient is a 57-year-old comorbid male with a history of hypertension, hyperlipidemia, atrial fibrillation on Eliquis, diastolic heart failure, severe pulmonary hypertension, COPD, multifactorial chronic respiratory failure due to the above on full-time AVAPS at his LTAC, long smoking history, diabetes, end- stage renal disease on HD MWF (missed today; plan per LTAC doctor was to dialyze tomorrow). Mr. Pelayo presents from his nursing facility for evaluation of gross hematuria and urinary retention. Has had gross hematuria for 2 days. Has had continuous bladder irrigation and multiple Lyons catheter changes at his SNF, and has had his Eliquis stopped, without resolution of hematuria or urinary retention. Denies fevers, nausea or vomiting, upper respiratory congestion/rhinorrhea, cough, sore throat, shortness of breath or chest pain of any kind, abdominal pain of any kind, flank pain, midline back pain, changes in bowel habits. Patient is alert, pleasantly and appropriately interactive and in no acute distress with appropriate vital signs aside from mild tachycardia with rhythm on the monitor appearing to be atrial fibrillation. Patient is saturating appropriately on his typical AVAPS settings. Review of Systems Review of Systems A 12 point review of systems was completed and was negative except where noted i n HPI above. Current Medications Current Medications Current Medications Medications (Trade) Dose Ordered Sig/[facility] Start Time Stop Time Status Last Admin Dose Admin Diltiazem HCl (Cardizem Iv Push) 10 mg 1X ONCE 03/16/22 22:15 03/16/22 22:16 DC Oxycodone HCl (Roxicodone) 5 mg 1X ONCE 03/16/22 21:00 03/16/22 21:01 DC 03/16/22 21:01 5 MG Allergies Allergies Allergies Coded Allergies Type Severity Reaction Last Updated Verified I S O L A T I O N *CONTACT* Allergy Unknown 02/25/22 Yes No Known Medication Allergies Allergy Unknown 03/16/22 Yes Physical Exam Physical Exam Morbidly obese, chronically ill-appearing 57-year-old male who is nontoxic and in no acute distress. Head is normocephalic and atraumatic. Neck is supple and nontender. Oropharynx is moist. Lungs with diminished breath sounds to all almazan but no wheezes or other adventitious sounds heard. Normal respiratory effort. There is a normal S1 and S2 without rubs or gallops and capillary refill is appropriate, less than 2 seconds globally. Abdomen is soft and nondistended without pulsatile mass and with mild suprapubic tenderness to pal pation without rebound or guarding. No right lower quadrant tenderness to palpation. Skin is warm and dry without cyanosis, clubbing or edema. Psychiatrically, the patient demonstrates appropriate mood and affect and is alert. Examination of the groin reveals no skin breakdown, erythema or warmth. There is bilateral scrotal swelling which patient states is worse than it usually is. Lyons catheter in place to the penis without surrounding erythema, warmth or swelling. Dark red urine, scant amount, in the catheter bag. Evaluation of the extremities reveals BUEs and BLEs neurovascular intact distally with strength 5-5, sensation intact light touch in all nerve distributions, radial, DP and PT pulses 1+ and equal bilaterally, capillary refill less than 2 seconds, hands and feet warm and well-perfused. There is a necrotic left toe which is chronic for this patient and not worse than it has been. Current Patient Data Vital Signs Vital Signs Date Time Temp Pulse Resp B/P (MAP) Pulse Ox O2 Delivery O2 Flow Rate FiO2 03/16/22 21:01 20 98 AVAPS 03/16/22 20:15 98.5 108 151/69 (96) 3.0 98.5 Lab Values Laboratory Tests Test 03/16/22 20:25 03/16/22 21:10 White Blood Count 14.1 x10^3/uL (4.0-11.0) H Red Blood Count 2.68 x10^6/uL (4.30-5.70) L Hemoglobin 8.7 g/dL (13.0-17.5) L Hematocrit 25.0 % (39.0-53.0) L Mean Corpuscular Volume 94 fL (79-100) Mean Corpuscular Hemoglobin 33 pg (25-35) Mean Corpuscular Hemoglobin Concent 35 g/dL (31-37) Red Cell Distribution Width 14.6 % (11.5-14.5) H Platelet Count 117 x10^3/uL (140-400) L Urine Collection Type Unknown Urine Color (Auto) Red Urine Turbidity Bloody Urine pH (Auto) (<5.0-8.0) Urine Specific [place] (1.000-1.030) Urine Protein (Auto) mg/dL (Negative) Urine Glucose (Auto)(UA) mg/dL (Negative) Urine Ketones (Auto) mg/dL (Negative) Urine Blood (Auto) (Negative) Urine Nitrite (Negative) Urine Bilirubin (Auto) (Negative) Urine Urobilinogen (Auto) mg/dL (Normal) Urine Leukocyte Esterase (Auto) (Negative) Urine RBC Tntc /HPF (0-2) Urine WBC Tntc /HPF (0-4) Urine Squamous Epithelial Cells Few /LPF Urine Bacteria Many /HPF (0-FEW) Urine Mucus Slight /LPF Urine Yeast Present /HPF Sodium Level 134 mmol/L (136-145) L Potassium Level 5.0 mmol/L (3.5-5.1) Chloride Level 98 mmol/L (98-107) Carbon Dioxide Level 30 mmol/L (21-32) Anion Gap 6 (6-14) Blood Urea Nitrogen 62 mg/dL (8-26) H Creatinine 3.7 mg/dL (0.7-1.3) H Estimated GFR (Cockcroft-Gault) 17.1 BUN/Creatinine Ratio 17 (6-20) Glucose Level 182 mg/dL (70-99) H Calcium Level 8.2 mg/dL (8.5-10.1) L Total Bilirubin 0.7 mg/dL (0.2-1.0) Aspartate Amino Transferase (AST) 11 U/L (15-37) L Alanine Aminotransferase (ALT) 17 U/L (16-63) Alkaline Phosphatase 59 U/L (46-116) Troponin I High Sensitivity 23 ng/L (4-75) UE-Tld-M-Type Natriuretic Peptide > 70988 pg/mL (0-124) H Total Protein 5.7 g/dL (6.4-8.2) L Albumin 2.2 g/dL (3.4-5.0) L Albumin/Globulin Ratio 0.6 (1.0-1.7) L Prothrombin Time 15.6 SEC (11.7-14.0) H Prothrombin Time INR 1.3 (0.8-1.1) H Activated Partial Thromboplast Time 27 SEC (24-38) Laboratory Tests 03/16/22 20:25 Laboratory Tests 03/16/22 20:25 EKG EKG Atrial fibrillation, rate 125, no acute ST elevation or depression, IN 118, QRS 112, QTc 487, EP interpretation. Nonischemic tracing. Radiology/Procedures Radiology/Procedures INDICATION: Reason: hematuria, acute urinary retention x2 days / Spl. Instructions: / History: COMPARISON: February 19, 2022 TECHNIQUE: Axial CT images were obtained through the abdomen and pelvis without intravenous contrast. One or more of the following individualized dose reduction techniques were utilized for this examination: 1. Automated exposure control; 2. Adjustment of the mA and/or kV according to patient size; 3. Use of iterative reconstruction technique. FINDINGS: Edema throughout the soft tissues. Partial visualization of left basilar airspace consolidation again seen with pleural effusion at the left greater than right lung base. Groundglass opacity throughout the right lower lung is again seen. Enlarged heart. Partially seen. Vascular: Severe calcific atherosclerosis. Severe edema in the scrotal region with suspected hydrocele. There is severe edema seen elsewhere throughout the fat as well. Hepatobiliary: Nodular contour with cause such as cirrhosis not excluded. Adjacent surgical clips. Pancreas: There is some edema within the area. Limited assessment without contrast. Spleen: Spleen unremarkable. Renal/Bladder: Prominence of bilateral renal pelvis. Urinary bladder is dilated. There is a catheter seen with the tip within the urethra and the balloon located within the urethra. Thickening of the adrenal glands is suspected. Gastrointestinal: Prominent stool throughout the colon. The appendix does not appear dilated. There is some haziness in the fat adjacent to the proximal small bowel including the duodenum and jejunum. Degenerative changes the spine with multilevel central canal and neural foraminal stenosis. IMPRESSION: * The urinary bladder is dilated with mild bilateral hydronephrosis. There is a catheter identified but it is located within the urethra and does not extend into the urinary bladder. Would correlate with catheter function given this location and dilatation of the urinary bladder. This could be advanced into the urinary bladder for better function. * Diffuse edema of the soft tissues as well as left greater than right pleural effusion. There is also groundglass opacities at lung bases which could be from edema or infiltrate. There is also consolidation at the left lung base which can be atelectasis or infiltrate. * Bilateral hydrocele is seen as well as severe confluent edema at the scrotal region. * Severe atherosclerotic disease. * Large amount of stool at colon which can be from constipation. * Indeterminate exophytic right renal lesion again suspected. This was better evaluated on recent ultrasound Electronically signed by: Robert Us MD (03/16/2022 9:56 PM) [id number] DICTATED and SIGNED BY: ROBERT US MD DATE: 03/16/222143 Course & Med Decision Making Course & Med Decision Making Comorbid 57-year-old presenting for gross hematuria and acute urinary obstruction likely secondary to clot. Continuous bladder irrigation at the facility has not been effective. Case discussed with Dr. Jackson of urology who recommends changing the patient's catheter out for a 24 Cymraes three-way, manually irrigating and setting up for continuous bladder irrigation overnight if this is ineffective. Plans to see the patient to provide further recomm endations regarding bleeding and retention. Patient is in mild rapid ventricular response. We will give Cardizem. Appears somewhat peripherally fluid overloaded. We will hold on diuresing with IV Lasix for now as patient is on his normal AVAPS settings and with urinary retention we will likely make discomfort and bladder distention worse with IV diuresis. Will obtain noncontrast CT scan of the abdomen pelvis per request of Dr. Washington. Plan admission. 2218: Lyons catheter seen on CT has been removed and replaced with a 24 Cymraes Lyons. We will plan to set up for CBI when the patient reaches the floor. Cardiology, pulmonary medicine and urology consulted on this very comorbid patient. Admitting to the ICU given AVAPS requirement at baseline. Graciously accepted for admission by Dr. Washington. Critical care time was 37 minutes for atrial fibrillation with rapid ventricular response requiring parenteral rate control therapy. Dragon Disclaimer Dragon Disclaimer This electronic medical record was generated, in whole or in part, using a voice recognition dictation system. Departure Departure Impression: Primary Impression: Acute urinary retention Additional Impressions: Gross hematuria Atrial fibrillation with rapid ventricular response Acute exacerbation of congestive heart failure Referrals: Génesis CESAR MD (PCP) Problem Qualifiers Additional Impressions: Acute exacerbation of congestive heart failure Heart failure type: diastolic Qualified Codes: I50.33 - Acute on chronic diastolic (congestive) heart failure TJ HILLIARD MD Mar 16, 2022 21:47
--- NOTE | 2022-03-16 21:58 | RAD ---
INDICATION: Reason: hematuria, acute urinary retention x2 days / Spl. Instructions: / History: COMPARISON: February 19, 2022 TECHNIQUE: Axial CT images were obtained through the abdomen and pelvis without intravenous contrast. One or more of the following individualized dose reduction techniques were utilized for this examinat ion: 1. Automated exposure control; 2. Adjustment of the mA and/or kV according to patient size; 3 . Use of iterative reconstruction technique. FINDINGS: Edema throughout the soft tissues. Partial visualization of left basilar airspace consolidation again seen with pleural effusion at the left greater than right lung base. Groundglass opacity throughout the right lower lung is again seen. Enlarged heart. Partially seen. Vascular: Severe calcific atherosclerosis. Severe edema in the scrotal region with suspected hydrocele. There is severe edema seen elsewhere thr oughout the fat as well. Hepatobiliary: Nodular contour with cause such as cirrhosis not excluded. Adjacent surgical clips. Pancreas: There is some edema within the area. Limited assessment without contrast. Spleen: Spleen unremarkable. Renal/Bladder: Prominence of bilateral renal pelvis. Urinary bladder is dilated. There is a catheter seen with the tip within the urethra and the balloon located within the urethra. Thickening of the ad renal glands is suspected. Gastrointestinal: Prominent stool throughout the colon. The appendix does not appear dilated. There i s some haziness in the fat adjacent to the proximal small bowel including the duodenum and jejunum. Degenerative changes the spine with multilevel central canal and neural foraminal stenosis. IMPRESSION: * The urinary bladder is dilated with mild bilateral hydronephrosis. There is a catheter identified but it is located within the urethra and does not extend into the urinary bladder. Would correlate w ith catheter function given this location and dilatation of the urinary bladder. This could be advanc ed into the urinary bladder for better function. * Diffuse edema of the soft tissues as well as left greater than right pleural effusion. There is al so groundglass opacities at lung bases which could be from edema or infiltrate. There is also consoli dation at the left lung base which can be atelectasis or infiltrate. * Bilateral hydrocele is seen as well as severe confluent edema at the scrotal region. * Severe atherosclerotic disease. * Large amount of stool at colon which can be from constipation. * Indeterminate exophytic right renal lesion again suspected. This was better evaluated on recent trasound Electronically signed by: Mitch Mayfield MD (03/16/2022 9:56 PM) [id number]
[2022-03-16] MEDS ORDERED: ONDANSETRON PF 4 MG/2 ML VIAL. IVP PRN (22:15)
[2022-03-16 23:30] VITALS: BP 115/77
[2022-03-16 23:45] VITALS: BP 118/77
[2022-03-17] VITALS (23 sets, daily range): BP systolic 81–165; BP diastolic 52–85
[2022-03-17] MEDS: MORPHINE SULFATE 2 MG/ML INJ. IVP PRN ×2 (00:02→01:55)
--- NOTE | 2022-03-17 02:22 | EKG ---
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
[2022-03-17] MEDS ORDERED: LIDOCAINE 2% TOPICAL JELLY 5GM TUBE. TP ONE (03:00)
[2022-03-17] MEDS ORDERED: LIDOCAINE 2% PF 5 ML VIAL. ONE (03:36)
[2022-03-17] MEDS ORDERED: fentaNYL PF VIAL 100 MCG/2 ML VIAL ONE (03:36)
[2022-03-17] MEDS ORDERED: PROPOFOL 10 MG/ML (20ML) VIAL. IV ONE (03:36)
[2022-03-17] MEDS ORDERED: ONDANSETRON PF 4 MG/2 ML VIAL. ONE (03:36)
[2022-03-17] MEDS ORDERED: SUCCINYLCHOLINE 200 MG/10 ML VIAL. ONE (03:39)
[2022-03-17] MEDS ORDERED: ROCURONIUM 50 MG/5 ML VIAL. ONE (03:39)
--- NOTE | 2022-03-17 03:40 | NUR ---
Patient arrived to room 107 at 2315. Patient attached to tele monitors. Patient A&Ox4, afib with controlled rate on monitor, patent PIV and PICC present, bipap on at 60%. Patient had [address] catheter in place, but CBI had not been initiated when watkins was placed. Attempted to start CBI but would not flush. Catheter was flushed with piston syringe and clot went through watkins tubing. CBI started and was dripping at a relatively slow pace but began to pick pack worker after about an hour. An hour after that, patient's urine seemed to appear darker red in color than it previously had and the CBI rate was slower (CBI clamp had been left wide open this entire time R/T slow flow). Catheter was flushed again with no improvement. Watkins removed and had large clot on the end. Patient was bladder scanned and had ~900 in his bladder. New watkins ([address]) was placed. Placement seemed very smooth but patient was in excruciating pain and no urine returned through tubing. Patient was having bladder spasms and fluid was spraying out around watkins. Dr. Christianson notified of events and current situation. He stated he would be coming in to place a catheter for CBI. Shortly after that call, he called the unit again and stated that he believed a Cystoscopy would be the best treatment for this patient. Nursing production supervisor notified to call in OR team, patient educated and updated on plan, consents signed by patient, and rapid covid test sent. Anesthesia came by to see patient and get update. Currently awaiting update about when patient will be taken to OR. Patient stable and resting at this time, attempted to call family but they did not answer. Stated he does not want me to call family and that he will attempt again later.
[2022-03-17] MEDS ORDERED: LIDOCAINE 2% JELLY 6ML IN APPLICATOR. ONE (04:24)
[2022-03-17] MEDS ORDERED: PROCHLORPERAZINE 10 MG/2 ML VIAL. IVP PRN (04:30)
[2022-03-17] MEDS ORDERED: HYDROmorphone 2 MG/ML INJ. IVP PRN (04:30)
[2022-03-17] MEDS ORDERED: fentaNYL PF VIAL 100 MCG/2 ML VIAL IVP PRN ×2 (04:30)
[2022-03-17] MEDS ORDERED: IV RINGERS,LACTATED 1000ML 1,000 ML IV SCH (04:30)
[2022-03-17] MEDS ORDERED: MORPHINE SULFATE 2 MG/ML INJ. IVP PRN (04:30)
--- NOTE | 2022-03-17 04:50 | PDOC2 ---
UROLOGY CONSULT DOS: DATE: 03/17/22 TIME: 04:43 Reason for Consult: hematuria Referring Physician: ER Problems: (1) Chronic respiratory failure (2) Gross hematuria HISTORY FREQUENCY/NOCTURIA: Yes HISTORY OF CANCER: No Chief Complaint urinary retention with hematuria unable to place catheter for hematuria pateint unable to urinate ROS ROS: RESPIRATORY: Shortness of breath denies. Cough denies. UROLOGY: Posittive blood in urine with difficulty urinating Current Medications Current Medications Oxycodone HCl (Roxicodone) 5 mg 1X ONCE PO Last administered on 03/16/22at 21:01; Start 03/16/22 at 21:00; Stop 03/16/22 at 21:01; Status DC Diltiazem HCl (Cardizem Iv Push) 10 mg 1X ONCE IVP Last administered on 03/16/22at 23:03; Start 03/16/22 at 22:15; Stop 03/16/22 at 22:16; Status DC Ondansetron HCl (Zofran) 4 mg PRN Q8HRS PRN IVP NAUSEA/VOMITING; Start 03/16/22 at 22:15; Stop 03/17/22 at 22:14 Morphine Sulfate (Morphine Sulfate) 2 mg PRN Q2HR PRN IVP PAIN Last administered on 03/17/22at 01:55; Start 03/16/22 at 22:15; Stop 03/17/22 at 22:14 Albuterol/ Ipratropium (Duoneb) 3 ml RTQID NEB ; Start 03/17/22 at 08:00; Stop 03/18/22 at 07:59 Budesonide (Pulmicort) 0.5 mg RTBID NEB ; Start 03/17/22 at 08:00 Ondansetron HCl (Zofran) 4 mg STK-MED ONCE .ROUTE ; Start 03/17/22 at 03:36; Stop 03/17/22 at 03:36; Status DC Propofol (Diprivan) 200 mg STK-MED ONCE IV ; Start 03/17/22 at 03:36; Stop 03/17/22 at 03:36; Status DC Lidocaine HCl (Lidocaine Pf 2% Vial) 5 ml STK-MED ONCE .ROUTE ; Start 03/17/22 at 03:36; Stop 03/17/22 at 03:36; Status DC Fentanyl Citrate (Fentanyl 2ml Vial) 100 mcg STK-MED ONCE .ROUTE ; Start 03/17/22 at 03:36; Stop 03/17/22 at 03:36; Status DC Succinylcholine Chloride (Anectine) 200 mg STK-MED ONCE .ROUTE ; Start 03/17/22 at 03:39; Stop 03/17/22 at 03:39; Status DC Rocuronium [place] (Zemuron) 50 mg STK-MED ONCE .ROUTE ; Start 03/17/22 at 03:39; Stop 03/17/22 at 03:39; Status DC Fentanyl Citrate (Fentanyl 2ml Vial) 25 mcg PRN Q5MIN PRN IVP MILD PAIN 1-3; Start 03/17/22 at 04:30; Stop 03/18/22 at 04:29 Fentanyl Citrate (Fentanyl 2ml Vial) 50 mcg PRN Q5MIN PRN IVP MODERATE PAIN 4- 6; Start 03/17/22 at 04:30; Stop 03/18/22 at 04:29 Morphine Sulfate (Morphine Sulfate) 1 mg PRN Q10MIN PRN IVP SEVERE PAIN 7-10; Start 03/17/22 at 04:30; Stop 03/18/22 at 04:29 Ringer's Solution 1,000 ml @ 30 mls/hr Q24H IV ; Start 03/17/22 at 04:30; Stop 03/17/22 at 16:29 Hydromorphone HCl (Dilaudid) 0.5 mg PRN Q10MIN PRN IVP SEVERE PAIN 7-10, 2nd CHOICE; Start 03/17/22 at 04:30; Stop 03/18/22 at 04:29 Prochlorperazine Edisylate (Compazine) 5 mg PACU PRN PRN IVP NAUSEA, MRX1; Start 03/17/22 at 04:30; Stop 03/18/22 at 04:29 Lidocaine HCl (Glydo (Lidocaine) Jelly) 6 estrellita STK-MED ONCE .ROUTE ; Start 03/17/22 at 04:24; Stop 03/17/22 at 04:25; Status DC Active Scripts Active Simethicone 80 Mg Tab.chew 0.5 Tab PO Q6HRS 10 Days Insulin Lispro Kwikpen U-100 (Insulin Lispro) 100 Unit/1 Ml Insuln.pen 0-9 Unit SQ TIDACHC 30 Days Pantoprazole Sodium (Pantoprazole Sodium) 40 Mg Tablet.dr 40 Mg PO DAILYAC 30 Days Colace (Docusate Sodium) 100 Mg Capsule 100 Mg PO DAILY 30 Days Magnesium Oxide 400 Mg Tablet 400 Mg PO DAILY 30 Days Acetaminophen 325 Mg Tablet 650 Mg PO PRN Q4HRS PRN 30 Days Atorvastatin Calcium 20 Mg Tablet 20 Mg PO QHS 30 Days Eliquis (Apixaban) 5 Mg Tablet 5 Mg PO BID 30 Days [Albuterol Sulfate] 2.5 MG/3 ML Nebu 2.5 Mg NEB PRN Q2HR PRN Reported Furosemide 40 Mg Tablet 3 Tab PO DAILY Advair 500-50 Diskus (Fluticasone/Salmeterol) 1 Each Disk.w.dev 1 Puff INH BID Albuterol Sulfate Neb Soln (Albuterol Sulfate) 2.5 Mg/3 Ml Vial.neb 2.5 Mg NEB PRN Q4-6HRS PRN Glyxambi 25 mg-5 mg Tablet (Empagliflozin/Linagliptin) 1 Each Tablet 1 Each PO DAILY Spiriva (Tiotropium [place]) 18 Mcg Cap.w.dev 18 Mcg IH DAILY Allergies: Coded Allergies: I S O L A T I O N *CONTACT* (Verified Allergy, Unknown, 02/25/22) mrsa No Known Medication Allergies (Verified Allergy, Unknown, 03/16/22) Physical Examination PHYSICAL EXAMINATION: GENERAL: Gen. appearance: No acute distress. Mood/affect: Pleasant. HEENT: Head: Normocephalic, atraumatic. Airway Impairment: No. CHEST: Shape and expansion: Normal. Expansion: Normal. SKIN: General: Warm. Color: Good. GENITOURINARY:External genitalia with edema and blood at the tip of the penis NEUROLOGICAL: Mental status: Alert and oriented 3. Language: Normal. DOES THIS PATIENT HAVE URINARY: Yes VITALS Vital Signs Date Time Temp Pulse Resp B/P (MAP) Pulse Ox O2 Delivery O2 Flow Rate FiO2 03/17/22 02:00 100 BiPAP/CPAP 03/16/22 23:03 106 147/86 03/16/22 21:01 20 03/16/22 20:15 98.5 3.0 98.5 Labs Laboratory Tests Test 03/16/22 20:25 03/16/22 21:10 03/17/22 01:20 White Blood Count 14.1 x10^3/uL (4.0-11.0) Red Blood Count 2.68 x10^6/uL (4.30-5.70) Hemoglobin 8.7 g/dL (13.0-17.5) Hematocrit 25.0 % (39.0-53.0) Mean Corpuscular Volume 94 fL (79-100) Mean Corpuscular Hemoglobin 33 pg (25-35) Mean Corpuscular Hemoglobin Concent 35 g/dL (31-37) Red Cell Distribution Width 14.6 % (11.5-14.5) Platelet Count 117 x10^3/uL (140-400) Urine Collection Type Unknown Urine Color (Auto) Red Urine Turbidity Bloody Urine pH (Auto) (<5.0-8.0) Urine Specific [place] (1.000-1.030) Urine Protein (Auto) mg/dL (Negative) Urine Glucose (Auto)(UA) mg/dL (Negative) Urine Ketones (Auto) mg/dL (Negative) Urine Blood (Auto) (Negative) Urine Nitrite (Negative) Urine Bilirubin (Auto) (Negative) Urine Urobilinogen (Auto) mg/dL (Normal) Urine Leukocyte Esterase (Auto) (Negative) Urine RBC Tntc /HPF (0-2) Urine WBC Tntc /HPF (0-4) Urine Squamous Epithelial Cells Few /LPF Urine Bacteria Many /HPF (0-FEW) Urine Mucus Slight /LPF Urine Yeast Present /HPF Sodium Level 134 mmol/L (136-145) Potassium Level 5.0 mmol/L (3.5-5.1) Chloride Level 98 mmol/L (98-107) Carbon Dioxide Level 30 mmol/L (21-32) Anion Gap 6 (6-14) Blood Urea Nitrogen 62 mg/dL (8-26) Creatinine 3.7 mg/dL (0.7-1.3) Estimated GFR (Cockcroft-Gault) 17.1 BUN/Creatinine Ratio 17 (6-20) Glucose Level 182 mg/dL (70-99) Calcium Level 8.2 mg/dL (8.5-10.1) Total Bilirubin 0.7 mg/dL (0.2-1.0) Aspartate Amino Transf (AST/SGOT) 11 U/L (15-37) Alanine Aminotransferase (ALT/SGPT) 17 U/L (16-63) Alkaline Phosphatase 59 U/L (46-116) Troponin I High Sensitivity 23 ng/L (4-75) 23 ng/L (4-75) UI-Xgk-Q-Type Natriuretic Peptide > 99202 pg/mL (0-124) Total Protein 5.7 g/dL (6.4-8.2) Albumin 2.2 g/dL (3.4-5.0) Albumin/Globulin Ratio 0.6 (1.0-1.7) Prothrombin Time 15.6 SEC (11.7-14.0) Prothromb Time International Ratio 1.3 (0.8-1.1) Activated Partial Thromboplast Time 27 SEC (24-38) Laboratory Tests Test 03/16/22 20:25 03/16/22 21:10 03/17/22 01:20 White Blood Count 14.1 x10^3/uL (4.0-11.0) Red Blood Count 2.68 x10^6/uL (4.30-5.70) Hemoglobin 8.7 g/dL (13.0-17.5) Hematocrit 25.0 % (39.0-53.0) Mean Corpuscular Volume 94 fL (79-100) Mean Corpuscular Hemoglobin 33 pg (25-35) Mean Corpuscular Hemoglobin Concent 35 g/dL (31-37) Red Cell Distribution Width 14.6 % (11.5-14.5) Platelet Count 117 x10^3/uL (140-400) Urine Collection Type Unknown Urine Color (Auto) Red Urine Turbidity Bloody Urine pH (Auto) (<5.0-8.0) Urine Specific [place] (1.000-1.030) Urine Protein (Auto) mg/dL (Negative) Urine Glucose (Auto)(UA) mg/dL (Negative) Urine Ketones (Auto) mg/dL (Negative) Urine Blood (Auto) (Negative) Urine Nitrite (Negative) Urine Bilirubin (Auto) (Negative) Urine Urobilinogen (Auto) mg/dL (Normal) Urine Leukocyte Esterase (Auto) (Negative) Urine RBC Tntc /HPF (0-2) Urine WBC Tntc /HPF (0-4) Urine Squamous Epithelial Cells Few /LPF Urine Bacteria Many /HPF (0-FEW) Urine Mucus Slight /LPF Urine Yeast Present /HPF Sodium Level 134 mmol/L (136-145) Potassium Level 5.0 mmol/L (3.5-5.1) Chloride Level 98 mmol/L (98-107) Carbon Dioxide Level 30 mmol/L (21-32) Anion Gap 6 (6-14) Blood Urea Nitrogen 62 mg/dL (8-26) Creatinine 3.7 mg/dL (0.7-1.3) Estimated GFR (Cockcroft-Gault) 17.1 BUN/Creatinine Ratio 17 (6-20) Glucose Level 182 mg/dL (70-99) Calcium Level 8.2 mg/dL (8.5-10.1) Total Bilirubin 0.7 mg/dL (0.2-1.0) Aspartate Amino Transf (AST/SGOT) 11 U/L (15-37) Alanine Aminotransferase (ALT/SGPT) 17 U/L (16-63) Alkaline Phosphatase 59 U/L (46-116) Troponin I High Sensitivity 23 ng/L (4-75) 23 ng/L (4-75) CZ-Apk-A-Type Natriuretic Peptide > 94088 pg/mL (0-124) Total Protein 5.7 g/dL (6.4-8.2) Albumin 2.2 g/dL (3.4-5.0) Albumin/Globulin Ratio 0.6 (1.0-1.7) Prothrombin Time 15.6 SEC (11.7-14.0) Prothromb Time International Ratio 1.3 (0.8-1.1) Activated Partial Thromboplast Time 27 SEC (24-38) Assessment/Plan 57M with gross hematuria and nursing unable to place catheter after multiple attempts -pateint consents to cystoscopy with clot evacuation and watkins placement in the OR -may need post op CBI DMITRIY ANDINO DO Mar 17, 2022 04:50
[2022-03-17] MEDS ORDERED: PHENYLEPHRINE 10 MG/ML VIAL. ONE (05:01)
[2022-03-17] MEDS ORDERED: ceFAZolin 2GM PREMIX 2 GM/50 ML BAG IV ONE (05:15)
[2022-03-17] MEDS ORDERED: ePHEDrine PF IN SALINE 50 MG/10 ML SYRINGE. IV ONE (05:21)
[2022-03-17] MEDS ORDERED: NALOXONE 0.4 MG/ML VIAL. IV PRN (05:30)
[2022-03-17] MEDS ORDERED: IV NORMAL SALINE 1000ML BAG 1,000 ML IV SCH (05:30)
[2022-03-17] MEDS ORDERED: PHENAZOPYRIDINE 200 MG TABLET. PO PRN (05:30)
[2022-03-17] MEDS ORDERED: 0.9 % SODIUM CHLORIDE 10 ML DISP.SYRIN. IV PRN (05:30)
--- NOTE | 2022-03-17 05:37 | PDOC4 ---
OPERATIVE NOTE: Preop diagnosis: Urinary retention with gross hematuria Postop diagnosis: Same with urethral trauma Procedure: Cystoscopy with clot evacuation and Lyons insertion Surgeon: Sammy Anesthesia: General IV fluids: 400 cc Blood loss: Minimal Drains: 22 [place]ian three-way catheter No complications Condition patient stable 57-year-old male transferred from long-term care facility due to nonfunctioning catheter and hematuria. The ER and nursing staff unsuccessfully placed Lyons catheter. There were issues with the catheter draining and blood clots clogging the catheter. The patient consented to cystoscopy with clot evacuation and catheter insertion. He was brought to the operating room prepped and draped in lithotomy position in usual sterile fashion. The procedure was begun using 21 Colombian scope with 30 degree lens entered in the urethra and bladder in a nontraumatic fashion there was a proximal bulbar stricture where a balloon had potentially been inflated on previous Lyons catheter. The stricture did not prevent me from inserting the cystoscope into the bladder. The bladder contained a large amount of rust colored urine. The bladder was fully evacuated using a 21 Colombian cystoscope. I then performed cystoscopy with 30 and 70 degree lenses noting no obvious bleeding abnormality. I suspect urethral trauma clots the hematuria and difficulties with catheter drainage. I then inserted an 035 sensor wire and placed a 22 [place]ian three-way catheter over the wire after making a [place] tip catheter using a 14 [place]ian angiocatheter. The CBI port was plugged and the catheter is draining clear urine. Patient can likely be discharged home later today. Catheter should remain in place for approximately 1 month before it is changed again. There were no complications and the patient was stable and transferred to recovery DMITRIY ANDINO DO Mar 17, 2022 05:37
[2022-03-17] MEDS ORDERED: ALBU2.5V8 IH (05:58)
[2022-03-17] MEDS ORDERED: DILT120C99 PO (05:58)
[2022-03-17] MEDS ORDERED: PRED20TA PO (05:58)
[2022-03-17] MEDS ORDERED: OXYC15TA22 PO (05:58)
[2022-03-17] MEDS ORDERED: FLUT1AER7 IH (05:58)
[2022-03-17] MEDS ORDERED: POTA-163 PO (05:58)
[2022-03-17] MEDS ORDERED: METF500T16 PO (05:58)
[2022-03-17] MEDS ORDERED: SILD20TA4 PO ×2 (05:58)
[2022-03-17] MEDS ORDERED: LISI10TA16 PO (05:58)
[2022-03-17] MEDS ORDERED: METO50TA4 PO (05:58)
[2022-03-17] MEDS ORDERED: LACT1CAP37 PO (05:58)
[2022-03-17] MEDS ORDERED: AMIO200T53 PO (05:58)
[2022-03-17 06:18] LABS: BASO % 0 % (0-3); EOS % 0 % (0-3); HEMATOCRIT 21.5 % (39.0-53.0); HEMOGLOBIN 7.2 g/dL (13.0-17.5); LYMPH # 0.9 x10^3/uL (1.0-4.8); LYMPH % 7 % (24-48); MEAN CORPUSCULAR HEMOGLOBIN 32 pg (25-35); MEAN CORPUSCULAR HGB CONC 34 g/dL (31-37); MEAN CORPUSCULAR VOLUME 94 fL (79-100); MONO # 1.7 x10^3/uL (0.0-1.1); MONO % 13 % (0-9); NEUT # 10.4 x10^3/uL (1.8-7.7); NEUT % 79 % (31-73); PLATELET COUNT 93 x10^3/uL (140-400); RED BLOOD COUNT 2.29 x10^6/uL (4.30-5.70); RED CELL DISTRIBUTION WIDTH 14.7 % (11.5-14.5); WHITE BLOOD COUNT 13.2 x10^3/uL (4.0-11.0)
[2022-03-17 06:29] LABS: CALCIUM 7.8 mg/dL (8.5-10.1); CREATININE 3.9 mg/dL (0.7-1.3); GFR 16.1; POTASSIUM 4.6 mmol/L (3.5-5.1)
[2022-03-17] MEDS ORDERED: BUDESONIDE 0.5 MG/2 ML NEBU. NEB SCH (08:00)
[2022-03-17] MEDS: IPRATRPIUM/ALBUTEROL 0.5/2.5MG 3 ML NEBU. NEB SCH ×3 (08:56→15:52)
[2022-03-17] MEDS ORDERED: PANTOPRAZOLE 40 MG TABLET.DR. PO SCH (09:00)
[2022-03-17] MEDS ORDERED: predniSONE 10 MG TABLET PO SCH (09:00)
[2022-03-17] MEDS ORDERED: AMIODARONE HCL 200 MG TABLET. PO SCH (09:00)
[2022-03-17] MEDS ORDERED: ACETAMINOPHEN 325 MG TABLET. PO PRN (09:15)
[2022-03-17] MEDS ORDERED: STERILE WATER for RESP 2,000 ML BAG. INH PRN (09:30)
[2022-03-17] MEDS ORDERED: ALBUTEROL SULFATE 2.5 MG/3 ML NEBU. NEB PRN (09:30)
[2022-03-17] MEDS ORDERED: oxyCODONE IR 5 MG TABLET PO PRN (09:30)
--- NOTE | 2022-03-17 10:04 | PDOC ---
PROGRESS NOTE DATE OF SERVICE: DATE: 03/17/22 TIME: 10:01 CHIEF COMPLAINT: Gross hematuria SUBJECTIVE: HPI: Duration: [] Quality: [] Severity: [] Site/Location: [] Problems: Problems Medical Problems: (1) Acute exacerbation of congestive heart failure Status: Acute (2) Acute urinary retention Status: Acute (3) Atrial fibrillation with rapid ventricular response Status: Acute (4) Gross hematuria Status: Acute OBJECTIVE: Vital Signs: Vital Signs Date Time Temp Pulse Resp B/P (MAP) Pulse Ox O2 Delivery O2 Flow Rate FiO2 03/17/22 08:56 100 BiPAP/CPAP 03/17/22 08:15 94 12 91/57 (68) 100 BiPAP/CPAP 03/17/22 08:00 Bi-pap 03/17/22 07:45 94 12 83/55 (64) 100 BiPAP/CPAP 03/17/22 07:15 98 12 81/54 (63) 100 BiPAP/CPAP 03/17/22 06:45 95 16 86/58 (67) 100 BiPAP/CPAP 03/17/22 06:30 109 16 84/60 (68) 100 BiPAP/CPAP 03/17/22 06:15 98 16 87/53 (64) 100 BiPAP/CPAP 03/17/22 06:00 98 16 84/59 (67) 99 BiPAP/CPAP 03/17/22 05:45 100 16 91/52 (65) 100 BiPAP/CPAP 03/17/22 04:30 100 BiPAP/CPAP 03/17/22 04:00 Bi-pap 03/17/22 04:00 108 19 121/65 (83) 99 BiPAP/CPAP 03/17/22 03:00 118 20 159/78 (105) 99 BiPAP/CPAP 03/17/22 02:00 100 BiPAP/CPAP 03/17/22 02:00 126 16 112/70 (84) 99 BiPAP/CPAP 03/17/22 01:00 96 16 98/65 (76) 98 BiPAP/CPAP 03/17/22 00:30 104 19 113/80 (91) 99 BiPAP/CPAP 03/17/22 00:20 100 BiPAP/CPAP 03/17/22 00:15 104 16 124/81 (95) 97 BiPAP/CPAP 03/17/22 00:02 98 BiPAP/CPAP 03/17/22 00:00 130 28 165/85 (111) 99 BiPAP/CPAP 03/16/22 23:45 112 23 118/77 (91) 99 BiPAP/CPAP 03/16/22 23:30 Bi-pap 03/16/22 23:30 98.5 106 25 115/77 (90) 99 BiPAP/CPAP 98.5 03/16/22 23:03 106 147/86 03/16/22 23:00 98 147/86 (106) 100 Room Air 03/16/22 22:30 104 152/88 (109) 99 Room Air 03/16/22 22:20 100 BiPAP/CPAP 03/16/22 21:01 20 98 AVAPS 03/16/22 20:45 110 158/93 (114) 100 Room Air 03/16/22 20:30 99 BiPAP/CPAP 03/16/22 20:15 98.5 108 20 151/69 (96) 99 NonRebreather Mask 3.0 98.5 I & O Intake and Output 03/17/22 07:00 Intake Total 0 ml Output Total 650 ml Balance -650 ml Intake Oral 0 ml Output Urine Total 650 ml PHYSICAL EXAM: Physical Exam: General: Sleeping, on BiPAP Eyes: conjunctiva anicteric, eyes full range of motion ENT: moist oral mucosa, normal dentition Neck: Trachea midline, no masses Respiratory: Respiratory distress on BiPAP Abdomen: nontender, nondistended, no hepatosplenomegaly, no masses Skin: no rashes or skin lesions on visualized skin Psych: Unable to assess : Lyons with clear yellow urine output, CBI off, no clots LABS: Laboratory Tests Test 03/16/22 20:25 03/16/22 21:10 03/17/22 01:20 03/17/22 03:00 White Blood Count 14.1 x10^3/uL (4.0-11.0) Red Blood Count 2.68 x10^6/uL (4.30-5.70) Hemoglobin 8.7 g/dL (13.0-17.5) Hematocrit 25.0 % (39.0-53.0) Mean Corpuscular Volume 94 fL (79-100) Mean Corpuscular Hemoglobin 33 pg (25-35) Mean Corpuscular Hemoglobin Concent 35 g/dL (31-37) Red Cell Distribution Width 14.6 % (11.5-14.5) Platelet Count 117 x10^3/uL (140-400) Urine Collection Type Unknown Urine Color (Auto) Red Urine Turbidity Bloody Urine pH (Auto) (<5.0-8.0) Urine Specific [place] (1.000-1.030) Urine Protein (Auto) mg/dL (Negative) Urine Glucose (Auto)(UA) mg/dL (Negative) Urine Ketones (Auto) mg/dL (Negative) Urine Blood (Auto) (Negative) Urine Nitrite (Negative) Urine Bilirubin (Auto) (Negative) Urine Urobilinogen (Auto) mg/dL (Normal) Urine Leukocyte Esterase (Auto) (Negative) Urine RBC Tntc /HPF (0-2) Urine WBC Tntc /HPF (0-4) Urine Squamous Epithelial Cells Few /LPF Urine Bacteria Many /HPF (0-FEW) Urine Mucus Slight /LPF Urine Yeast Present /HPF Sodium Level 134 mmol/L (136-145) Potassium Level 5.0 mmol/L (3.5-5.1) Chloride Level 98 mmol/L (98-107) Carbon Dioxide Level 30 mmol/L (21-32) Anion Gap 6 (6-14) Blood Urea Nitrogen 62 mg/dL (8-26) Creatinine 3.7 mg/dL (0.7-1.3) Estimated GFR (Cockcroft-Gault) 17.1 BUN/Creatinine Ratio 17 (6-20) Glucose Level 182 mg/dL (70-99) Calcium Level 8.2 mg/dL (8.5-10.1) Total Bilirubin 0.7 mg/dL (0.2-1.0) Aspartate Amino Transf (AST/SGOT) 11 U/L (15-37) Alanine Aminotransferase (ALT/SGPT) 17 U/L (16-63) Alkaline Phosphatase 59 U/L (46-116) Troponin I High Sensitivity 23 ng/L (4-75) 23 ng/L (4-75) KH-Uzs-U-Type Natriuretic Peptide > 73132 pg/mL (0-124) Total Protein 5.7 g/dL (6.4-8.2) Albumin 2.2 g/dL (3.4-5.0) Albumin/Globulin Ratio 0.6 (1.0-1.7) Prothrombin Time 15.6 SEC (11.7-14.0) Prothromb Time International Ratio 1.3 (0.8-1.1) Activated Partial Thromboplast Time 27 SEC (24-38) SARS-CoV-2 Antigen (Rapid) Negative (NEGATIVE) Test 03/17/22 06:00 White Blood Count 13.2 x10^3/uL (4.0-11.0) Red Blood Count 2.29 x10^6/uL (4.30-5.70) Hemoglobin 7.2 g/dL (13.0-17.5) Hematocrit 21.5 % (39.0-53.0) Mean Corpuscular Volume 94 fL (79-100) Mean Corpuscular Hemoglobin 32 pg (25-35) Mean Corpuscular Hemoglobin Concent 34 g/dL (31-37) Red Cell Distribution Width 14.7 % (11.5-14.5) Platelet Count 93 x10^3/uL (140-400) Neutrophils (%) (Auto) 79 % (31-73) Lymphocytes (%) (Auto) 7 % (24-48) Monocytes (%) (Auto) 13 % (0-9) Eosinophils (%) (Auto) 0 % (0-3) Basophils (%) (Auto) 0 % (0-3) Neutrophils # (Auto) 10.4 x10^3/uL (1.8-7.7) Lymphocytes # (Auto) 0.9 x10^3/uL (1.0-4.8) Monocytes # (Auto) 1.7 x10^3/uL (0.0-1.1) Eosinophils # (Auto) 0.0 x10^3/uL (0.0-0.7) Basophils # (Auto) 0.0 x10^3/uL (0.0-0.2) Sodium Level 136 mmol/L (136-145) Potassium Level 4.6 mmol/L (3.5-5.1) Chloride Level 100 mmol/L (98-107) Carbon Dioxide Level 28 mmol/L (21-32) Anion Gap 8 (6-14) Blood Urea Nitrogen 65 mg/dL (8-26) Creatinine 3.9 mg/dL (0.7-1.3) Estimated GFR (Cockcroft-Gault) 16.1 Glucose Level 145 mg/dL (70-99) Calcium Level 7.8 mg/dL (8.5-10.1) Troponin I High Sensitivity 22 ng/L (4-75) MEDICATIONS: Current Medications Medications (Trade) Dose Ordered Sig/Theresa Start Time Stop Time Status Last Admin Dose Admin Acetaminophen (Tylenol) 650 mg PRN Q4HRS PRN 03/17/22 09:15 Albuterol Sulfate (Ventolin Neb Soln) 2.5 mg PRN Q4HRS PRN 03/17/22 09:30 Albuterol/ Ipratropium (Duoneb) 3 ml RTQID 03/17/22 08:00 03/18/22 07:59 03/17/22 08:56 3 ML Amiodarone HCl (Cordarone) 200 mg DAILY 03/17/22 09:00 Atorvastatin Calcium (Lipitor) 20 mg QHS 03/17/22 21:00 Budesonide (Pulmicort) 0.5 mg RTBID 03/17/22 08:00 03/17/22 08:56 0.5 MG Cefazolin Sodium/ Dextrose (Ancef 2gm Premix) 2 gm STK-MED ONCE 03/17/22 05:15 03/17/22 08:36 DC Diltiazem HCl (Cardizem Iv Push) 10 mg 1X ONCE 03/16/22 22:15 03/16/22 22:16 DC 03/16/22 23:03 10 MG Ephedrine Sulfate (ePHEDrine PF IN SALINE SYRINGE) 50 mg STK-MED ONCE 03/17/22 05:21 03/17/22 05:21 DC Fentanyl Citrate (Fentanyl 2ml Vial) 50 mcg PRN Q5MIN PRN 03/17/22 04:30 03/17/22 12:00 Hydromorphone HCl (Dilaudid) 0.5 mg PRN Q10MIN PRN 03/17/22 04:30 03/17/22 12:00 Lactobacillus Rhamnosus (Culturelle) 1 cap DAILY 03/18/22 09:00 Lidocaine HCl (Glydo (Lidocaine) Jelly) 6 estrellita STK-MED ONCE 03/17/22 04:24 03/17/22 04:25 DC Lidocaine HCl (Lidocaine Pf 2% Vial) 5 ml STK-MED ONCE 03/17/22 03:36 03/17/22 03:36 DC Morphine Sulfate (Morphine Sulfate) 1 mg PRN Q10MIN PRN 03/17/22 04:30 03/17/22 12:00 Naloxone HCl (Narcan) 0.4 mg PRN Q2MIN PRN 03/17/22 05:30 Non-Formulary Medication (Fluticasone/ Salmeterol (Advair 500-50 Diskus)) 1 puff BID 03/17/22 21:00 UNV Non-Formulary Medication (Fluticasone/ Salmeterol (Airduo Respiclick 113-14 Mcg)) 1 puff BID 03/17/22 21:00 UNV Ondansetron HCl (Zofran) 4 mg STK-MED ONCE 03/17/22 03:36 03/17/22 03:36 DC Oxycodone HCl (Roxicodone) 5 mg PRN Q4HRS PRN 03/17/22 09:30 Pantoprazole Sodium (Protonix) 40 mg DAILYAC 03/17/22 09:00 Phenazopyridine HCl (Pyridium) 200 mg PRN TID PRN 03/17/22 05:30 Phenylephrine HCl (Baudilio-Synephrine Inj) 10 mg STK-MED ONCE 03/17/22 05:01 03/17/22 05:02 DC Prednisone (Prednisone) 30 mg DAILY 03/17/22 09:00 Prochlorperazine Edisylate (Compazine) 5 mg PACU PRN PRN 03/17/22 04:30 03/17/22 12:00 Propofol (Diprivan) 200 mg STK-MED ONCE 03/17/22 03:36 03/17/22 03:36 DC Ringer's Solution 1,000 ml @ 30 mls/hr Q24H 03/17/22 04:30 03/17/22 16:29 Rocuronium [place] (Zemuron) 50 mg STK-MED ONCE 03/17/22 03:39 03/17/22 03:39 DC Sildenafil Citrate (Revatio) 20 mg BID 03/17/22 21:00 Simethicone (Gas-X) 40 mg Q6HRS 03/17/22 12:00 Sodium Chloride 1,000 ml @ 25 mls/hr Q24H 03/17/22 05:30 03/17/22 06:59 DC Sodium Chloride (Normal Saline Flush) 3 ml QSHIFT PRN 03/17/22 05:30 Sterile Water (WATER for RESP) 2,000 ml CONT PRN 03/17/22 09:30 03/17/22 09:25 2,000 ML Succinylcholine Chloride (Anectine) 200 mg STK-MED ONCE 03/17/22 03:39 03/17/22 03:39 DC ASSESSMENT & PLAN -- Gross hematuria Status post cystoscopy, clot evacuation and fulguration with Dr. Christianson overnight. Urine has had clear yellow urine output with CBI off. Lyons appears to be working appropriately. Would maintain Lyons for 1 month and attempt voiding trial. Patient is critically ill with several comorbidities, plans to have dialysis today. Patient is cleared from urology standpoint. Can follow-up in our office if health improves for a voiding trial outpatient or this can be done at the rehab facility. Please call with questions Problem List: Problems Medical Problems: (1) Acute exacerbation of congestive heart failure Status: Acute (2) Acute urinary retention Status: Acute (3) Atrial fibrillation with rapid ventricular response Status: Acute (4) Gross hematuria Status: Acute NANDO GARDINER Mar 17, 2022 10:04
--- NOTE | 2022-03-17 10:08 | PDOC ---
PULMONARY PROGRESS NOTES DATE: 03/17/22 TIME: 10:07 Vitals Vital Signs Date Time Temp Pulse Resp B/P (MAP) Pulse Ox O2 Delivery O2 Flow Rate FiO2 03/17/22 08:56 100 BiPAP/CPAP 03/17/22 08:15 94 12 91/57 (68) 03/16/22 23:30 98.5 98.5 03/16/22 20:15 3.0 General: Alert, Oriented X4, No acute distress HEENT: Other Lungs: Other Cardiovascular: S1, S2 Abdomen: Soft, Non-tender Extremities: Other Labs Laboratory Tests Test 03/16/22 20:25 03/16/22 21:10 03/17/22 01:20 03/17/22 03:00 White Blood Count 14.1 x10^3/uL (4.0-11.0) Red Blood Count 2.68 x10^6/uL (4.30-5.70) Hemoglobin 8.7 g/dL (13.0-17.5) Hematocrit 25.0 % (39.0-53.0) Mean Corpuscular Volume 94 fL (79-100) Mean Corpuscular Hemoglobin 33 pg (25-35) Mean Corpuscular Hemoglobin Concent 35 g/dL (31-37) Red Cell Distribution Width 14.6 % (11.5-14.5) Platelet Count 117 x10^3/uL (140-400) Urine Collection Type Unknown Urine Color (Auto) Red Urine Turbidity Bloody Urine pH (Auto) (<5.0-8.0) Urine Specific [place] (1.000-1.030) Urine Protein (Auto) mg/dL (Negative) Urine Glucose (Auto)(UA) mg/dL (Negative) Urine Ketones (Auto) mg/dL (Negative) Urine Blood (Auto) (Negative) Urine Nitrite (Negative) Urine Bilirubin (Auto) (Negative) Urine Urobilinogen (Auto) mg/dL (Normal) Urine Leukocyte Esterase (Auto) (Negative) Urine RBC Tntc /HPF (0-2) Urine WBC Tntc /HPF (0-4) Urine Squamous Epithelial Cells Few /LPF Urine Bacteria Many /HPF (0-FEW) Urine Mucus Slight /LPF Urine Yeast Present /HPF Sodium Level 134 mmol/L (136-145) Potassium Level 5.0 mmol/L (3.5-5.1) Chloride Level 98 mmol/L (98-107) Carbon Dioxide Level 30 mmol/L (21-32) Anion Gap 6 (6-14) Blood Urea Nitrogen 62 mg/dL (8-26) Creatinine 3.7 mg/dL (0.7-1.3) Estimated GFR (Cockcroft-Gault) 17.1 BUN/Creatinine Ratio 17 (6-20) Glucose Level 182 mg/dL (70-99) Calcium Level 8.2 mg/dL (8.5-10.1) Total Bilirubin 0.7 mg/dL (0.2-1.0) Aspartate Amino Transf (AST/SGOT) 11 U/L (15-37) Alanine Aminotransferase (ALT/SGPT) 17 U/L (16-63) Alkaline Phosphatase 59 U/L (46-116) Troponin I High Sensitivity 23 ng/L (4-75) 23 ng/L (4-75) ZU-Mxd-C-Type Natriuretic Peptide > 24034 pg/mL (0-124) Total Protein 5.7 g/dL (6.4-8.2) Albumin 2.2 g/dL (3.4-5.0) Albumin/Globulin Ratio 0.6 (1.0-1.7) Prothrombin Time 15.6 SEC (11.7-14.0) Prothromb Time International Ratio 1.3 (0.8-1.1) Activated Partial Thromboplast Time 27 SEC (24-38) SARS-CoV-2 Antigen (Rapid) Negative (NEGATIVE) Test 03/17/22 06:00 White Blood Count 13.2 x10^3/uL (4.0-11.0) Red Blood Count 2.29 x10^6/uL (4.30-5.70) Hemoglobin 7.2 g/dL (13.0-17.5) Hematocrit 21.5 % (39.0-53.0) Mean Corpuscular Volume 94 fL (79-100) Mean Corpuscular Hemoglobin 32 pg (25-35) Mean Corpuscular Hemoglobin Concent 34 g/dL (31-37) Red Cell Distribution Width 14.7 % (11.5-14.5) Platelet Count 93 x10^3/uL (140-400) Neutrophils (%) (Auto) 79 % (31-73) Lymphocytes (%) (Auto) 7 % (24-48) Monocytes (%) (Auto) 13 % (0-9) Eosinophils (%) (Auto) 0 % (0-3) Basophils (%) (Auto) 0 % (0-3) Neutrophils # (Auto) 10.4 x10^3/uL (1.8-7.7) Lymphocytes # (Auto) 0.9 x10^3/uL (1.0-4.8) Monocytes # (Auto) 1.7 x10^3/uL (0.0-1.1) Eosinophils # (Auto) 0.0 x10^3/uL (0.0-0.7) Basophils # (Auto) 0.0 x10^3/uL (0.0-0.2) Sodium Level 136 mmol/L (136-145) Potassium Level 4.6 mmol/L (3.5-5.1) Chloride Level 100 mmol/L (98-107) Carbon Dioxide Level 28 mmol/L (21-32) Anion Gap 8 (6-14) Blood Urea Nitrogen 65 mg/dL (8-26) Creatinine 3.9 mg/dL (0.7-1.3) Estimated GFR (Cockcroft-Gault) 16.1 Glucose Level 145 mg/dL (70-99) Calcium Level 7.8 mg/dL (8.5-10.1) Troponin I High Sensitivity 22 ng/L (4-75) Laboratory Tests Test 03/16/22 20:25 03/16/22 21:10 03/17/22 01:20 03/17/22 03:00 White Blood Count 14.1 x10^3/uL (4.0-11.0) Red Blood Count 2.68 x10^6/uL (4.30-5.70) Hemoglobin 8.7 g/dL (13.0-17.5) Hematocrit 25.0 % (39.0-53.0) Mean Corpuscular Volume 94 fL (79-100) Mean Corpuscular Hemoglobin 33 pg (25-35) Mean Corpuscular Hemoglobin Concent 35 g/dL (31-37) Red Cell Distribution Width 14.6 % (11.5-14.5) Platelet Count 117 x10^3/uL (140-400) Urine Collection Type Unknown Urine Color (Auto) Red Urine Turbidity Bloody Urine pH (Auto) (<5.0-8.0) Urine Specific [place] (1.000-1.030) Urine Protein (Auto) mg/dL (Negative) Urine Glucose (Auto)(UA) mg/dL (Negative) Urine Ketones (Auto) mg/dL (Negative) Urine Blood (Auto) (Negative) Urine Nitrite (Negative) Urine Bilirubin (Auto) (Negative) Urine Urobilinogen (Auto) mg/dL (Normal) Urine Leukocyte Esterase (Auto) (Negative) Urine RBC Tntc /HPF (0-2) Urine WBC Tntc /HPF (0-4) Urine Squamous Epithelial Cells Few /LPF Urine Bacteria Many /HPF (0-FEW) Urine Mucus Slight /LPF Urine Yeast Present /HPF Sodium Level 134 mmol/L (136-145) Potassium Level 5.0 mmol/L (3.5-5.1) Chloride Level 98 mmol/L (98-107) Carbon Dioxide Level 30 mmol/L (21-32) Anion Gap 6 (6-14) Blood Urea Nitrogen 62 mg/dL (8-26) Creatinine 3.7 mg/dL (0.7-1.3) Estimated GFR (Cockcroft-Gault) 17.1 BUN/Creatinine Ratio 17 (6-20) Glucose Level 182 mg/dL (70-99) Calcium Level 8.2 mg/dL (8.5-10.1) Total Bilirubin 0.7 mg/dL (0.2-1.0) Aspartate Amino Transf (AST/SGOT) 11 U/L (15-37) Alanine Aminotransferase (ALT/SGPT) 17 U/L (16-63) Alkaline Phosphatase 59 U/L (46-116) Troponin I High Sensitivity 23 ng/L (4-75) 23 ng/L (4-75) JY-Axk-Q-Type Natriuretic Peptide > 40691 pg/mL (0-124) Total Protein 5.7 g/dL (6.4-8.2) Albumin 2.2 g/dL (3.4-5.0) Albumin/Globulin Ratio 0.6 (1.0-1.7) Prothrombin Time 15.6 SEC (11.7-14.0) Prothromb Time International Ratio 1.3 (0.8-1.1) Activated Partial Thromboplast Time 27 SEC (24-38) SARS-CoV-2 Antigen (Rapid) Negative (NEGATIVE) Test 03/17/22 06:00 White Blood Count 13.2 x10^3/uL (4.0-11.0) Red Blood Count 2.29 x10^6/uL (4.30-5.70) Hemoglobin 7.2 g/dL (13.0-17.5) Hematocrit 21.5 % (39.0-53.0) Mean Corpuscular Volume 94 fL (79-100) Mean Corpuscular Hemoglobin 32 pg (25-35) Mean Corpuscular Hemoglobin Concent 34 g/dL (31-37) Red Cell Distribution Width 14.7 % (11.5-14.5) Platelet Count 93 x10^3/uL (140-400) Neutrophils (%) (Auto) 79 % (31-73) Lymphocytes (%) (Auto) 7 % (24-48) Monocytes (%) (Auto) 13 % (0-9) Eosinophils (%) (Auto) 0 % (0-3) Basophils (%) (Auto) 0 % (0-3) Neutrophils # (Auto) 10.4 x10^3/uL (1.8-7.7) Lymphocytes # (Auto) 0.9 x10^3/uL (1.0-4.8) Monocytes # (Auto) 1.7 x10^3/uL (0.0-1.1) Eosinophils # (Auto) 0.0 x10^3/uL (0.0-0.7) Basophils # (Auto) 0.0 x10^3/uL (0.0-0.2) Sodium Level 136 mmol/L (136-145) Potassium Level 4.6 mmol/L (3.5-5.1) Chloride Level 100 mmol/L (98-107) Carbon Dioxide Level 28 mmol/L (21-32) Anion Gap 8 (6-14) Blood Urea Nitrogen 65 mg/dL (8-26) Creatinine 3.9 mg/dL (0.7-1.3) Estimated GFR (Cockcroft-Gault) 16.1 Glucose Level 145 mg/dL (70-99) Calcium Level 7.8 mg/dL (8.5-10.1) Troponin I High Sensitivity 22 ng/L (4-75) Medications Active Scripts Medications Dose Route/Sig Max Daily Dose Days Date Category Roxicodone (Oxycodone Hcl) 15 Mg Tablet 5 Mg PO PRN Q4HRS PRN 03/17/22 Reported Sildenafil (Sildenafil Citrate) 20 Mg Tablet 20 Mg PO BID 03/17/22 Reported Prednisone 20 Mg Tablet 30 Mg PO DAILY 03/17/22 Reported Toprol XL (Metoprolol Succinate) 50 Mg Tab.er.24h 50 Mg PO DAILY 03/17/22 Reported Probiotic (Lactobacillus Combo No.10) 1 Each Capsule 1 Tab PO DAILY 30 03/17/22 Reported Amiodarone Hcl 200 Mg Tablet 1 Tab PO DAILY 03/17/22 Reported Proair Hfa Inhaler (Albuterol Sulfate) 8.5 Gm Hfa.aer.ad 2 Puff IH PRN Q4HRS PRN 21 03/17/22 Reported Potassium Chloride 20 Meq Tablet.er 20 Meq PO DAILY 03/17/22 Reported Metformin Hcl 500 Mg Tablet 500 Mg PO BIDWMEALS 03/17/22 Reported Lisinopril 10 Mg Tablet 1 Tab PO DAILY 03/17/22 Reported Airduo Respiclick 113-14 Mcg (Fluticasone/Salmeterol) 1 Each Aer.pow.ba 1 Puff IH BID 30 03/17/22 Reported Diltiazem 24HR Cd (Diltiazem Hcl) 120 Mg Cap.er.24h 240 Mg PO DAILY 03/17/22 Reported Simethicone 80 Mg Tab.chew 0.5 Tab PO Q6HRS 10 12/19/21 Rx Insulin Lispro Kwikpen U-100 (Insulin Lispro) 100 Unit/1 Ml Insuln.pen 0-9 Unit SQ TIDACHC 30 12/19/21 Rx Pantoprazole Sodium (Pantoprazole Sodium) 40 Mg Tablet.dr 40 Mg PO DAILYAC 30 12/19/21 Rx Colace (Docusate Sodium) 100 Mg Capsule 100 Mg PO DAILY 30 12/19/21 Rx Magnesium Oxide 400 Mg Tablet 400 Mg PO DAILY 30 12/19/21 Rx Acetaminophen 325 Mg Tablet 650 Mg PO PRN Q4HRS PRN 30 12/19/21 Rx Atorvastatin Calcium 20 Mg Tablet 20 Mg PO QHS 30 12/19/21 Rx Furosemide 40 Mg Tablet 3 Tab PO DAILY 12/03/21 Reported Eliquis (Apixaban) 5 Mg Tablet 5 Mg PO BID 30 09/30/21 Rx Advair 500-50 Diskus (Fluticasone/Salmeterol) 1 Each Disk.w.dev 1 Puff INH BID 09/24/21 Reported Albuterol Sulfate Neb Soln (Albuterol Sulfate) 2.5 Mg/3 Ml Vial.neb 2.5 Mg NEB PRN Q4-6HRS PRN 06/12/21 Reported Impression . Full consult dictated Continue current support Acute on chronic respiratory failure Discussed with KADE Figueroa MD Mar 17, 2022 10:08
--- NOTE | 2022-03-17 10:40 | HP ---
DATE OF SERVICE: 03/17/2022 ADMIT DATE: 03/16/2022 HISTORY OF PRESENT ILLNESS: The patient is a 57-year-old male patient who was transferred yesterday evening to the [facility] to the Emergency Room as he has had gross hematuria and urine retention. 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 He was dialyzed with sodium citrate. Unfortunately, he developed gross hematuria and despite changing his catheter multiple times and using continuous bladder irrigation, he continued to retain urine and eventually decision was made to transfer him to [facility] Emergency Room where he had a CT scan done of his abdomen and pelvis, which showed that the patient has urinary bladder is dilated with mild bilateral hydronephrosis. There is a catheter identified, but it is located within the urethra and does not extend into the urinary bladder, would correlate with catheter function given this location and dilatation of the urinary bladder. This could be advanced into the urinary bladder for better function. Has diffuse edema of the soft tissue as well as left greater than right pleural effusion. There are also ground glass opacities at lung bases, which could be from edema or infiltrate. There is also consolidation at the left lung base, which can be atelectasis or infiltrate, severe atherosclerotic disease, large amount of stool at colon, which can be from constipation, indeterminate osteophytic right renal lesion again suspected, this can be better evaluated by an ultrasound. The patient was admitted to the ICU, continued on his BiPAP machine. Apparently, attempt at advancing the catheter has failed and we did consult the journalism teacher, supervisor painting department as well as the urologist to assist with management. PAST MEDICAL HISTORY: Significant for congestive heart failure, severe COPD that is oxygen dependent, chronic hypoxic respiratory failure, on 6 liters of oxygen along with BiPAP at nighttime, obstructive sleep apnea, obesity hypoventilation syndrome and cor pulmonale, severe pulmonary hypertension, coronary artery disease, gastroesophageal reflux disease, type 2 diabetes mellitus. He also has an infected left second toe with growth of multiple organisms including Pseudomonas aeruginosa, Enterococcus faecalis and methicillin-resistant Staphylococcus aureus. PAST SURGICAL HISTORY: Significant for vasectomy. FAMILY HISTORY: Significant for hypertension, diabetes. SOCIAL HISTORY: He apparently lives at home. He quit smoking in October of last year. Before that, he has a long history of tobaccoism for at least 35 years. He apparently does not drink alcohol or use recreational drugs. ALLERGIES: HE IS ALLERGIC TO HEPARIN HE RECENTLY DEVELOPED HEPARIN-INDUCED PLATELET ANTIBODY. MEDICATIONS: He is currently on following medications: He is on budesonide 0.5 mg by nebulizer twice a day, albuterol and Atrovent 4 times a day. He is on hydromorphone 0.5 mg IV. He is actually on diltiazem 240 mg daily, sliding scale insulin before meals, Protonix 40 mg once a day. REVIEW OF SYSTEMS: As per history of present illness. PHYSICAL EXAMINATION: GENERAL: On arrival to the Emergency Room, he was pale, but not jaundiced or cyanosed, no lymphadenopathy, no thyromegaly, no jugular venous distention, but generalized anasarca. VITAL SIGNS: His heart rate was 108, blood pressure was 151/69, temperature was 98.5, respiratory rate was 20 and his oxygen saturation was 99% on AVAPS with FiO2 of 40%. HEAD, EYES, EARS, NOSE, AND THROAT: Normocephalic, atraumatic. NECK: Supple. HEART: Showed normal first and second heart sounds. No gallop or murmur. CHEST: Shows central trachea, equal bilateral expansion, air entry, vesicular breath sounds. I could not really appreciate any crepitation or rhonchi anteriorly. ABDOMEN: Distended, soft, nontender, no guarding or rigidity. No organomegaly. All hernial orifices are intact. Bowel sounds normal. NEUROLOGIC: He was grossly intact. LABORATORY DATA: On arrival showed a white cell count of 14,000, hemoglobin 8.7, hematocrit 25, MCV 94 and platelet count of 117,000. His chemistry showed a serum sodium 134, potassium 5, chloride 98, bicarbonate 30, anion gap of 6, BUN 62, creatinine 3.7, estimated GFR was 17 mL per minute. His glucose 182, calcium was 8.2. Total bilirubin, AST, ALT, alkaline phosphatase were normal. Total protein 5.7, albumin 2.2. His prothrombin time was 15.6, INR 1.3 and APTT was 27. Urinalysis was bloody with too numerous to count rbc's and too numerous to count wbc's, many bacteria. His coronavirus by rapid antigen testing was negative. The CT scan of the abdomen and pelvis showed that the patient's urinary bladder is dilated with mild bilateral hydronephrosis. There is a catheter identified, but is located within the urethra and does not extend into the urinary bladder. Would correlate with catheter function given this location and dilatation of the urinary bladder. This could be advanced into the urinary bladder for better function. Diffuse edema of the soft tissue as well as left greater than right pleural effusion. There are also ground glass opacities at the lung bases, which could be from edema and infiltrate. There is also consolidation at the left lung base, which can be atelectasis or infiltrate, bilateral hydrocele is seen as well as severe confluent edema of the scrotal region, severe atherosclerotic disease, large amount of stool at the colon, which can be from constipation and indeterminate exophytic right renal lesion again is suspected. PLAN: Apparently, attempt to advance the catheter was made unsuccessfully and we did consult the urologist, journalism teacher as well as the supervisor painting department. We will obviously continue to hold his apixaban and also aspirin and heparin, and the patient was dialyzed with sodium citrate. HEIDY/BRYCE/THOMAS DR: Antonio TID: [id number]
--- NOTE | 2022-03-17 10:49 | PDOC2 ---
RAJAT CASTELLANO SURVEY ANALYST 03/17/22 1049: CARDIAC CONSULT DATE OF CONSULT Date of Consult DATE: 03/17/22 TIME: 10:42 REASON FOR CONSULT Reason for Consult: AFIB with RVR REFERRING PHYSICIAN Referring Physician: Dr. Garcia SOURCE Source: Chart review, Patient HISTORY OF PRESENT ILLNESS HISTORY OF PRESENT ILLNESS This is a yo male, who is well known to us from previous hospitalization and has been followed by our service at [facility], who presented secondary to gross hematuria x 2 days and urinary retention following traumatic Lyons insertion. Has had continuous bladder irrigation and multiple Lyons catheter changes at his SNF. Eliquis was held, but hematuria persisted. Was noted in AFIB with RVR, which prompted this consult. Patient has a known history of AFIB, cardiomyopathy, and CAD. Patient denies any chest pain, palpitations, dizziness, diaphoresis, or nausea/vomiting. HR is now controlled. PAST MEDICAL HISTORY Past Medical History Cardiovascular: CHF, HTN, Hyperlipidemia, PAFIB, CAD Pulmonary: COPD, Pneumonia, Other (BALTA), severe pulmonary hypertension GI: GERD Endocrine: Diabetes PAST SURGICAL HISTORY Past Surgical History Cholecystectomy, Other (vasectomy ), [facility] FAMILY HISTORY Family History: Diabetes, Hypertension SOCIAL HISTORY Social History Smoke: Quit ALCOHOL: none Drugs: None Lives: with Family (has been at LTAC) CURRENT MEDICATIONS CURRENT MEDICATIONS Current Medications Medications (Trade) Dose Ordered Sig/Theresa Route PRN Reason Start Time Stop Time Status Last Admin Dose Admin Oxycodone HCl (Roxicodone) 5 mg 1X ONCE PO 03/16/22 21:00 03/16/22 21:01 DC 03/16/22 21:01 Diltiazem HCl (Cardizem Iv Push) 10 mg 1X ONCE IVP 03/16/22 22:15 03/16/22 22:16 DC 03/16/22 23:03 Morphine Sulfate (Morphine Sulfate) 2 mg PRN Q2HR PRN IVP PAIN 03/16/22 22:15 03/17/22 22:14 03/17/22 01:55 Albuterol/ Ipratropium (Duoneb) 3 ml RTQID NEB 03/17/22 08:00 03/18/22 07:59 03/17/22 08:56 Budesonide (Pulmicort) 0.5 mg RTBID NEB 03/17/22 08:00 03/17/22 08:56 Sterile Water (WATER for RESP) 2,000 ml CONT PRN INH VIA VAPOTHERM DEVICE 03/17/22 09:30 03/17/22 09:25 ALLERGIES ALLERGIES: Coded Allergies: I S O L A T I O N *CONTACT* (Verified Allergy, Unknown, 02/25/22) mrsa No Known Medication Allergies (Verified Allergy, Unknown, 03/16/22) ROS Review of System 14 point ROS conducted with pertinent positives noted above in HPI PHYSICAL EXAM PHYSICAL EXAM General: Alert, Oriented X3, Cooperative, mild distress HEENT: Atraumatic, Mucous membr. moist/pink Lungs: Other (diminished- on BiPAP) Heart: Other (AFIB-rate controlled) Abdomen: Soft, No tenderness Extremities: No cyanosis, Other (1+ bilateral LE pitting edema) Skin: Other ( left 4th toe with dry gangrene) Neuro: Normal speech, Sensation intact Psych/Mental Status: Mental status NL, Mood NL MUSCULOSKELETAL: Osteoarthritic changes both hands VITALS/I&O VITALS/I&O: Vital Signs Date Time Temp Pulse Resp B/P (MAP) Pulse Ox O2 Delivery O2 Flow Rate FiO2 03/17/22 08:56 100 BiPAP/CPAP 03/17/22 08:15 94 12 91/57 (68) 03/16/22 23:30 98.5 98.5 03/16/22 20:15 3.0 I & O 03/16/22 03/16/22 03/17/22 15:00 23:00 07:00 Intake Total 0 ml Output Total 650 ml Balance -650 ml LABS Lab: Laboratory Tests Test 03/16/22 20:25 03/16/22 21:10 03/17/22 01:20 03/17/22 03:00 White Blood Count 14.1 x10^3/uL (4.0-11.0) H Red Blood Count 2.68 x10^6/uL (4.30-5.70) L Hemoglobin 8.7 g/dL (13.0-17.5) L Hematocrit 25.0 % (39.0-53.0) L Mean Corpuscular Volume 94 fL (79-100) Mean Corpuscular Hemoglobin 33 pg (25-35) Mean Corpuscular Hemoglobin Concent 35 g/dL (31-37) Red Cell Distribution Width 14.6 % (11.5-14.5) H Platelet Count 117 x10^3/uL (140-400) L Urine Collection Type Unknown Urine Color (Auto) Red Urine Turbidity Bloody Urine pH (Auto) (<5.0-8.0) Urine Specific Howell (1.000-1.030) Urine Protein (Auto) mg/dL (Negative) Urine Glucose (Auto)(UA) mg/dL (Negative) Urine Ketones (Auto) mg/dL (Negative) Urine Blood (Auto) (Negative) Urine Nitrite (Negative) Urine Bilirubin (Auto) (Negative) Urine Urobilinogen (Auto) mg/dL (Normal) Urine Leukocyte Esterase (Auto) (Negative) Urine RBC Tntc /HPF (0-2) Urine WBC Tntc /HPF (0-4) Urine Squamous Epithelial Cells Few /LPF Urine Bacteria Many /HPF (0-FEW) Urine Mucus Slight /LPF Urine Yeast Present /HPF Sodium Level 134 mmol/L (136-145) L Potassium Level 5.0 mmol/L (3.5-5.1) Chloride Level 98 mmol/L (98-107) Carbon Dioxide Level 30 mmol/L (21-32) Anion Gap 6 (6-14) Blood Urea Nitrogen 62 mg/dL (8-26) H Creatinine 3.7 mg/dL (0.7-1.3) H Estimated GFR (Cockcroft-Gault) 17.1 BUN/Creatinine Ratio 17 (6-20) Glucose Level 182 mg/dL (70-99) H Calcium Level 8.2 mg/dL (8.5-10.1) L Total Bilirubin 0.7 mg/dL (0.2-1.0) Aspartate Amino Transferase (AST) 11 U/L (15-37) L Alanine Aminotransferase (ALT) 17 U/L (16-63) Alkaline Phosphatase 59 U/L (46-116) Troponin I High Sensitivity 23 ng/L (4-75) 23 ng/L (4-75) JB-Umf-D-Type Natriuretic Peptide > 60986 pg/mL (0-124) H Total Protein 5.7 g/dL (6.4-8.2) L Albumin 2.2 g/dL (3.4-5.0) L Albumin/Globulin Ratio 0.6 (1.0-1.7) L Prothrombin Time 15.6 SEC (11.7-14.0) H Prothrombin Time INR 1.3 (0.8-1.1) H Activated Partial Thromboplast Time 27 SEC (24-38) SARS-CoV-2 Antigen (Rapid) Negative (NEGATIVE) Test 03/17/22 06:00 White Blood Count 13.2 x10^3/uL (4.0-11.0) H Red Blood Count 2.29 x10^6/uL (4.30-5.70) L Hemoglobin 7.2 g/dL (13.0-17.5) L Hematocrit 21.5 % (39.0-53.0) L Mean Corpuscular Volume 94 fL (79-100) Mean Corpuscular Hemoglobin 32 pg (25-35) Mean Corpuscular Hemoglobin Concent 34 g/dL (31-37) Red Cell Distribution Width 14.7 % (11.5-14.5) H Platelet Count 93 x10^3/uL (140-400) L Neutrophils (%) (Auto) 79 % (31-73) H Lymphocytes (%) (Auto) 7 % (24-48) L Monocytes (%) (Auto) 13 % (0-9) H Eosinophils (%) (Auto) 0 % (0-3) Basophils (%) (Auto) 0 % (0-3) Neutrophils # (Auto) 10.4 x10^3/uL (1.8-7.7) H Lymphocytes # (Auto) 0.9 x10^3/uL (1.0-4.8) L Monocytes # (Auto) 1.7 x10^3/uL (0.0-1.1) H Eosinophils # (Auto) 0.0 x10^3/uL (0.0-0.7) Basophils # (Auto) 0.0 x10^3/uL (0.0-0.2) Sodium Level 136 mmol/L (136-145) Potassium Level 4.6 mmol/L (3.5-5.1) Chloride Level 100 mmol/L (98-107) Carbon Dioxide Level 28 mmol/L (21-32) Anion Gap 8 (6-14) Blood Urea Nitrogen 65 mg/dL (8-26) H Creatinine 3.9 mg/dL (0.7-1.3) H Estimated GFR (Cockcroft-Gault) 16.1 Glucose Level 145 mg/dL (70-99) H Calcium Level 7.8 mg/dL (8.5-10.1) L Troponin I High Sensitivity 22 ng/L (4-75) Laboratory Tests 03/16/22 20:25 03/17/22 06:00 Laboratory Tests 03/16/22 20:25 03/17/22 06:00 ECHOCARDIOGRAM ECHOCARDIOGRAM <Conclusion> The systolic function is severely impaired. Estimated ejection fraction 25%. Septal motion suggestive of conduction defect. There is global hypokinesis of the left ventricle. There is significant RV pressure overload with a D-shaped septum. The right ventricle is severely dilated. RV Systolic function is severely reduced. Doppler and Color Flow revealed mild tricuspid regurgitation. Estimated PAP 58 mmHg. The IVC is dilated and collapses <50% with inspiration. DATE: 02/24/22 1516 HEART CATH HEART CATH <Conclusion> Moderate single-vessel coronary artery disease. Intact LV systolic function. Elevated right-sided heart pressures. DATE: 12/17/21 [id number] Conclusion 1. Normal left-sided filling pressures 2. Severe pulmonary hypertension, mean PA 45 mmHg 3. Cor pulmonale Recommendations 1. Continue aggressive risk factor modification to include treatment of sleep apnea, COPD and obesity. 2. We will plan for intravenous fluid administration for total 1 L over the next 12 to 24 hours to see if this helps with his kidney function in light of the fact that his filling pressures on the left side are within normal today. 3. Consider transfer to [facility] for management of pulm onary hypertension and multiorgan failure if he does not improve within the next 24 to 48 hours. DATE: 02/23/221520 ASSESSMENT/PLAN ASSESSMENT/PLAN 1. Gross hematuria, urinary retention. Secondary to urethral trauma. s/p cystoscopy with clot evacuation and Lyons insertion 2. Acute on chronic hypercapnic respiratory failure; multifactorial with severe pulmonary HTN/cor pulmonale, COPD. on BiPAP 3. Acute on chronic diastolic/systolic CHF, NICM. LVEF 25% 3. Persistent AFIB presenting with RVR: rate now controlled 4. DM2: per PCP 5. Hypertension: low end 6. HLP; statin 7. BALTA, obesity hypoventilation syndrome 8. CAD; recent Moderate single-vessel coronary artery disease to LAD 9. LLE PAD with left 4th toe gangrene. 10. LUIS: HD initiated recently. monitoring for renal recovery Recommendations Continue Recommendations Continue Toprol for rate control as BP allows Consider discontinuing amiodarone as patient remains in AFIB. Will d/w primary pharmacist intern Eliquis on hold with hematuria Fluid offloading via HD No ACEI/ARB with hypotension, LUIS Secondary prevention measures Supportive care from a CV standpoint JENNIFFER ROTHMAN MD 03/17/224: CARDIAC CONSULT ASSESSMENT/PLAN ASSESSMENT/PLAN Patient seen and examined. Agree with TERRAZZO JOURNEYMAN's assessment and plan. Atrial fib/flutter rate better controlled Agree with holding eliquis for hematuria Acute on chronic systolic HF better compensated Continue fluid removal with HD per nephrology team Thank you for your consultatiobn RAJAT CASTELLANO APRN Mar 17, 2022 10:49 JENNIFFER ROTHMAN MD Mar 17, 2022 19:04
--- NOTE | 2022-03-17 11:32 | SNU/HH DC ---
DISCHARGE ORDERS DISCHARGE INFORMATION: DISCHARGE DATE: Mar 17, 2022 FINAL DIAGNOSIS Problems Medical Problems: (1) Acute exacerbation of congestive heart failure Status: Acute (2) Acute urinary retention Status: Acute (3) Atrial fibrillation with rapid ventricular response Status: Acute (4) Gross hematuria Status: Acute CONDITION ON DISCHARGE: Stable CODE STATUS: Code Status: Full LTAC: ADMIT TO LTAC: Yes POST DISCHARGE ORDERS: ACTIVITY ORDERS: Activity as tolerated WEIGHT BEARING STATUS: No restrictions DIET AFTER DISCHARGE: Renal WOUND/INCISION CARE: No wound care needed CHECKS AFTER DISCHARGE: CHECKS AFTER DISCHARGE: Check blood press - daily, Check your Temp as needed, Weigh Yourself Daily FOLLOW-UP: LAB ORDERS FOR FOLLOW-UP: BMP, Mg weekly TREATMENT/EQUIPMENT ORDERS: ADAPTIVE EQUIPMENT NEEDED: Wheelchair RESPIRATORY EQUIPMENT NEEDED: Oxygen Physical Therapy For: Evalulation/Treatment Occupational Therapy For: Evaluation/Treatment DISCHARGE MEDICATIONS: Home Meds Active Scripts Simethicone (SIMETHICONE) 80 Mg Tab.chew, 0.5 TAB PO Q6HRS for gas for 10 Days, #20 TAB 0 Refills Prov:ABY GUERIN MD 12/19/21 Insulin Lispro (Insulin Lispro Kwikpen U-100) 100 Unit/1 Ml Insuln.pen, 0-9 UNIT SQ TIDACHC for DM2 for 30 Days, #1 EACH Prov:ABY GUERIN MD 12/19/21 Pantoprazole Sodium (PANTOPRAZOLE SODIUM ) 40 Mg Tablet.dr, 40 MG PO DAILYAC for GERD for 30 Days, #30 TAB.SR Prov:ABY GUERIN MD 12/19/21 Docusate Sodium (COLACE) 100 Mg Capsule, 100 MG PO DAILY for Constipation for 30 Days, #30 CAP Prov:ABY GUERIN MD 12/19/21 Magnesium Oxide (MAGNESIUM OXIDE) 400 Mg Tablet, 400 MG PO DAILY for CHF for 30 Days, #30 TAB Prov:ABY GUERIN MD 12/19/21 Acetaminophen (ACETAMINOPHEN) 325 Mg Tablet, 650 MG PO PRN Q4HRS PRN for TEMP OVER 100.4F OR MILD PAIN for 30 Days, #120 TAB Prov:ABY GUERIN MD 12/19/21 Atorvastatin Calcium (ATORVASTATIN CALCIUM) 20 Mg Tablet, 20 MG PO QHS for HLD for 30 Days, #30 TAB 5 Refills Prov:ABY GUERIN MD 12/19/21 Reported Medications Oxycodone Hcl (ROXICODONE) 15 Mg Tablet, 5 MG PO PRN Q4HRS PRN for PAIN, TAB 03/17/22 Sildenafil Citrate (SILDENAFIL) 20 Mg Tablet, 20 MG PO BID for PULMONARY HYPERTENSION, TAB 03/17/22 Prednisone (PREDNISONE) 20 Mg Tablet, 30 MG PO DAILY for unknown, TAB 03/17/22 Metoprolol Succinate (Toprol XL) 50 Mg Tab.er.24h, 50 MG PO DAILY for FOR HYPERTENSION, TAB.SR 03/17/22 Lactobacillus Combo No.10 (PROBIOTIC) 1 Each Capsule, 1 TAB PO DAILY for supplement for 30 Days, #30 TAB 0 Refills 03/17/22 Amiodarone Hcl (AMIODARONE HCL) 200 Mg Tablet, 1 TAB PO DAILY for afib, #90 TAB 1 Refill 03/17/22 Albuterol Sulfate (PROAIR HFA INHALER) 8.5 Gm Hfa.aer.ad, 2 PUFF IH PRN Q4HRS PRN for wheezing for 21 Days, #1 INHALER 0 Refills 03/17/22 Fluticasone/Salmeterol (Airduo Respiclick 113-14 Mcg) 1 Each Aer.pow.ba, 1 PUFF IH BID for breathing problems for 30 Days, #1 INHALER 0 Refills 03/17/22 Fluticasone/Salmeterol (ADVAIR 500-50 DISKUS) 1 Each Disk.w.dev, 1 PUFF INH BID for 09/24/21 Albuterol Sulfate (ALBUTEROL SULFATE NEB SOLN) 2.5 Mg/3 Ml Vial.neb, 2.5 MG NEB PRN Q4-6HRS PRN for SHORTNESS OF BREATH, EACH 0 Refills 06/12/21 Discontinued Reported Medications Sildenafil Citrate (SILDENAFIL) 20 Mg Tablet, 40 MG PO Q6HRS for PULMONARY HYPERTENSION, TAB 03/17/22 Potassium Chloride (Potassium Chloride) 20 Meq Tablet.er, 20 MEQ PO DAILY for supplement, TAB.SR 03/17/22 Metformin Hcl (METFORMIN HCL) 500 Mg Tablet, 500 MG PO BIDWMEALS for ANTI- DIABETIC, TAB 0 Refills 03/17/22 Lisinopril (LISINOPRIL) 10 Mg Tablet, 1 TAB PO DAILY for htn, #30 TAB 5 Refills 03/17/22 Diltiazem Hcl (DILTIAZEM 24HR CD) 120 Mg Cap.er.24h, 240 MG PO DAILY for afib, CAP.SR 03/17/22 Furosemide (FUROSEMIDE) 40 Mg Tablet, 3 TAB PO DAILY for CHF, #30 TAB 5 Refills 12/03/21 Discontinued Scripts Apixaban (ELIQUIS) 5 Mg Tablet, 5 MG PO BID for stroke prevention for 30 Days, #60 TAB 2 Refills Prov:LEEROY LUIS MD 09/30/21 MU CALVO MD Mar 17, 2022 11:32
[2022-03-17] MEDS ORDERED: SIMETHICONE 80 MG TAB.CHEW PO SCH (12:00)
[2022-03-17] MEDS ORDERED: IV NORMAL SALINE 1000ML BAG 1,000 ML IV PRN ×2 (12:00)
[2022-03-17] MEDS ORDERED: DIALYSIS PATIENT. MC PRN (12:00)
--- NOTE | 2022-03-17 12:41 | PDOC2 ---
CONSULT Date of Consult Date of Consult DATE: 03/17/22 TIME: 12:09 Reason for Consult Reason for Consult: LUIS Source Source: Chart review History of Present Illness Reason for Visit: Patient 57-year-old male patient transferred yesterday evening to the [facility] to the Emergency Room as he has had gross hematuria and urine retention. We have been following him at [facility] for LUIS , requiring dialysis since past 7- 10 days . S/P cystoscopy with clot evacuation and watkins placement in the OR .Off CBI now , Urine clear Per urology maintain Watkins for 1 month and attempt voiding trial. Past Medical History Cardiovascular: CHF, HTN, Hyperlipidemia Pulmonary: COPD, Pneumonia, Other CENTRAL NERVOUS SYSTEM: Periperal neuropathy GI: GERD Heme/Onc: No pertinent hx Hepatobiliary: No pertinent hx Psych: No pertinent hx Rheumatologic: No pertinent hx Infectious disease: No pertinent hx Renal/: No pertinent hx Endocrine: Diabetes Past Surgical History Past Surgical History: Cholecystectomy, Other Family History Family History: Diabetes, Hypertension Social History ALCOHOL: none Drugs: None Lives: with Family Current Problem List Problem List Problems Medical Problems: (1) Acute exacerbation of congestive heart failure Status: Acute (2) Acute urinary retention Status: Acute (3) Atrial fibrillation with rapid ventricular response Status: Acute (4) Gross hematuria Status: Acute Current Medications Current Medications Current Medications Oxycodone HCl (Roxicodone) 5 mg 1X ONCE PO Last administered on 03/16/22at 21:01; Admin Dose 5 MG; Start 03/16/22 at 21:00; Stop 03/16/22 at 21:01; Status DC Diltiazem HCl (Cardizem Iv Push) 10 mg 1X ONCE IVP Last administered on 03/16/22at 23:03; Admin Dose 10 MG; Start 03/16/22 at 22:15; Stop 03/16/22 at 22:16; Status DC Ondansetron HCl (Zofran) 4 mg PRN Q8HRS PRN IVP NAUSEA/VOMITING; Start 03/16/22 at 22:15; Stop 03/17/22 at 22:14 Morphine Sulfate (Morphine Sulfate) 2 mg PRN Q2HR PRN IVP PAIN Last administered on 03/17/22at 01:55; Admin Dose 2 MG; Start 03/16/22 at 22:15; Stop 03/17/22 at 22:14 Albuterol/ Ipratropium (Duoneb) 3 ml RTQID NEB Last administered on 03/17/22at 08:56; Admin Dose 3 ML; Start 03/17/22 at 08:00; Stop 03/18/22 at 07:59 Budesonide (Pulmicort) 0.5 mg RTBID NEB Last administered on 03/17/22at 08:56; Admin Dose 0.5 MG; Start 03/17/22 at 08:00 Ondansetron HCl (Zofran) 4 mg STK-MED ONCE .ROUTE ; Start 03/17/22 at 03:36; Stop 03/17/22 at 03:36; Status DC Propofol (Diprivan) 200 mg STK-MED ONCE IV ; Start 03/17/22 at 03:36; Stop 03/17/22 at 03:36; Status DC Lidocaine HCl (Lidocaine Pf 2% Vial) 5 ml STK-MED ONCE .ROUTE ; Start 03/17/22 at 03:36; Stop 03/17/22 at 03:36; Status DC Fentanyl Citrate (Fentanyl 2ml Vial) 100 mcg STK-MED ONCE .ROUTE ; Start 03/17/22 at 03:36; Stop 03/17/22 at 03:36; Status DC Succinylcholine Chloride (Anectine) 200 mg STK-MED ONCE .ROUTE ; Start 03/17/22 at 03:39; Stop 03/17/22 at 03:39; Status DC Rocuronium Sherman (Zemuron) 50 mg STK-MED ONCE .ROUTE ; Start 03/17/22 at 03:39; Stop 03/17/22 at 03:39; Status DC Fentanyl Citrate (Fentanyl 2ml Vial) 25 mcg PRN Q5MIN PRN IVP MILD PAIN 1-3; Start 03/17/22 at 04:30; Stop 03/17/22 at 12:00; Status DC Fentanyl Citrate (Fentanyl 2ml Vial) 50 mcg PRN Q5MIN PRN IVP MODERATE PAIN 4- 6; Start 03/17/22 at 04:30; Stop 03/17/22 at 12:00; Status DC Morphine Sulfate (Morphine Sulfate) 1 mg PRN Q10MIN PRN IVP SEVERE PAIN 7-10; Start 03/17/22 at 04:30; Stop 03/17/22 at 12:00; Status DC Ringer's Solution 1,000 ml @ 30 mls/hr Q24H IV ; Start 03/17/22 at 04:30; Stop 03/17/22 at 16:29 Hydromorphone HCl (Dilaudid) 0.5 mg PRN Q10MIN PRN IVP SEVERE PAIN 7-10, 2nd CHOICE; Start 03/17/22 at 04:30; Stop 03/17/22 at 12:00; Status DC Prochlorperazine Edisylate (Compazine) 5 mg PACU PRN PRN IVP NAUSEA, MRX1; Start 03/17/22 at 04:30; Stop 03/17/22 at 12:00; Status DC Lidocaine HCl (Glydo (Lidocaine) Jelly) 6 estrellita STK-MED ONCE .ROUTE ; Start 03/17/22 at 04:24; Stop 03/17/22 at 04:25; Status DC Phenylephrine HCl (Baudilio-Synephrine Inj) 10 mg STK-MED ONCE .ROUTE ; Start 03/17/22 at 05:01; Stop 03/17/22 at 05:02; Status DC Cefazolin Sodium/ Dextrose 50 ml @ As Directed STK-MED ONCE IV ; Start 03/17/22 at 05:08; Stop 03/17/22 at 05:08; Status DC Ephedrine Sulfate (ePHEDrine PF IN SALINE SYRINGE) 50 mg STK-MED ONCE IV ; Start 03/17/22 at 05:21; Stop 03/17/22 at 05:21; Status DC Phenazopyridine HCl (Pyridium) 200 mg PRN TID PRN PO urinary pain; Start 03/17/22 at 05:30 Cefazolin Sodium/ Dextrose 50 ml @ 100 mls/hr 1X ONCE IV ; Start 03/17/22 at 05:45; Stop 03/17/22 at 06:14; Status Cancel Sodium Chloride (Normal Saline Flush) 3 ml QSHIFT PRN IV AFTER MEDS AND BLOOD DRAWS; Start 03/17/22 at 05:30 Naloxone HCl (Narcan) 0.4 mg PRN Q2MIN PRN IV SEE INSTRUCTIONS; Start 03/17/22 at 05:30 Sodium Chloride 1,000 ml @ 25 mls/hr Q24H IV ; Start 03/17/22 at 05:30; Stop 03/17/22 at 06:59; Status DC Cefazolin Sodium/ Dextrose (Ancef 2gm Premix) 2 gm STK-MED ONCE IV ; Start 03/17/22 at 05:15; Stop 03/17/22 at 08:36; Status DC Sterile Water (WATER for RESP) 2,000 ml CONT PRN INH VIA VAPOTHERM DEVICE Last administered on 03/17/22at 09:25; Admin Dose 2,000 ML; Start 03/17/22 at 09:30 Acetaminophen (Tylenol) 650 mg PRN Q4HRS PRN PO TEMP OVER 100.4F OR MILD PAIN; Start 03/17/22 at 09:15 Albuterol Sulfate (Ventolin Neb Soln) 2.5 mg PRN Q4HRS PRN NEB SHORTNESS OF BREATH; Start 03/17/22 at 09:30 Amiodarone HCl (Cordarone) 200 mg DAILY PO Last administered on 03/17/22at 11:49; Admin Dose 200 MG; Start 03/17/22 at 09:00 Atorvastatin Calcium (Lipitor) 20 mg QHS PO ; Start 03/17/22 at 21:00 Pantoprazole Sodium (Protonix) 40 mg DAILYAC PO Last administered on 03/17/22at 11:48; Admin Dose 40 MG; Start 03/17/22 at 09:00 Prednisone (Prednisone) 30 mg DAILY PO Last administered on 03/17/22at 11:50; Admin Dose 30 MG; Start 03/17/22 at 09:00 Sildenafil Citrate (Revatio) 20 mg BID PO ; Start 03/17/22 at 21:00 Simethicone (Gas-X) 40 mg Q6HRS PO ; Start 03/17/22 at 12:00 Non-Formulary Medication (Fluticasone/ Salmeterol (Advair 500-50 Diskus)) 1 puff BID INH ; Start 03/17/22 at 21:00; Status UNV Non-Formulary Medication (Fluticasone/ Salmeterol (Airduo Respiclick 113-14 Mcg)) 1 puff BID IH ; Start 03/17/22 at 21:00; Status UNV Lactobacillus Rhamnosus (Culturelle) 1 cap DAILY PO ; Start 03/18/22 at 09:00 Oxycodone HCl (Roxicodone) 5 mg PRN Q4HRS PRN PO PAIN Last administered on 03/17/22at 11:56; Admin Dose 5 MG; Start 03/17/22 at 09:30 Cefazolin Sodium/ Dextrose 50 ml @ 100 mls/hr 1X ONCE IV ; Start 03/17/22 at 11:00; Stop 03/17/22 at 11:29; Status DC Sodium Chloride 1,000 ml @ 1,000 mls/hr Q1H PRN IV hypotension; Start 03/17/22 at 12:00; Stop 03/17/22 at 17:59 Sodium Chloride 1,000 ml @ 400 mls/hr Q2H30M PRN IV PATENCY; Start 03/17/22 at 12:00; Stop 03/17/22 at 23:59 Info (PHARMACY MONITORING -- do not chart) 1 each PRN DAILY PRN MC SEE COMMENTS; Start 03/17/22 at 12:00 Active Scripts Active Simethicone 80 Mg Tab.chew 0.5 Tab PO Q6HRS 10 Days Insulin Lispro Kwikpen U-100 (Insulin Lispro) 100 Unit/1 Ml Insuln.pen 0-9 Unit SQ TIDACHC 30 Days Pantoprazole Sodium (Pantoprazole Sodium) 40 Mg Tablet.dr 40 Mg PO DAILYAC 30 Days Colace (Docusate Sodium) 100 Mg Capsule 100 Mg PO DAILY 30 Days Magnesium Oxide 400 Mg Tablet 400 Mg PO DAILY 30 Days Acetaminophen 325 Mg Tablet 650 Mg PO PRN Q4HRS PRN 30 Days Atorvastatin Calcium 20 Mg Tablet 20 Mg PO QHS 30 Days Reported Roxicodone (Oxycodone Hcl) 15 Mg Tablet 5 Mg PO PRN Q4HRS PRN Sildenafil (Sildenafil Citrate) 20 Mg Tablet 20 Mg PO BID Prednisone 20 Mg Tablet 30 Mg PO DAILY Toprol XL (Metoprolol Succinate) 50 Mg Tab.er.24h 50 Mg PO DAILY Probiotic (Lactobacillus Combo No.10) 1 Each Capsule 1 Tab PO DAILY 30 Days Amiodarone Hcl 200 Mg Tablet 1 Tab PO DAILY Proair Hfa Inhaler (Albuterol Sulfate) 8.5 Gm Hfa.aer.ad 2 Puff IH PRN Q4HRS PRN 21 Days Airduo Respiclick 113-14 Mcg (Fluticasone/Salmeterol) 1 Each Aer.pow.ba 1 Puff IH BID 30 Days Advair 500-50 Diskus (Fluticasone/Salmeterol) 1 Each Disk.w.dev 1 Puff INH BID Albuterol Sulfate Neb Soln (Albuterol Sulfate) 2.5 Mg/3 Ml Vial.neb 2.5 Mg NEB PRN Q4-6HRS PRN Allergies Allergies: Coded Allergies: I S O L A T I O N *CONTACT* (Verified Allergy, Unknown, 02/25/22) mrsa No Known Medication Allergies (Verified Allergy, Unknown, 03/16/22) ROS Review of System As per HPI, rest of the ROS is negative Physical Exam Physical Exam General: Alert, Oriented X3, No distress HEENT: Atraumatic, PERRLA, On BiPAP Neck Supple Lungs: Decreased at bases ant,Non labored Heart: S1S2 Abdomen: Normal bowel sounds, Obese Extremities: Trace edema Changes of CVI +; left foot there is black dry gangrene of the fourth toe Skin: No rash Neuro: Grossly normal , moving all extrem Watkins +, No CVA or SP tenderness Vital Signs Vital Signs Date Time Temp Pulse Resp B/P (MAP) Pulse Ox O2 Delivery O2 Flow Rate FiO2 03/17/22 11:56 16 97 Vapotherm 40.0 03/17/22 11:49 103 109/66 03/16/22 23:30 98.5 98.5 Assessment & Plan LUIS- ATN .Non Oliguric, Requiring dialysis, No improvement in renal function (Clearance). Currently on MWF at [facility] , held yesterday to monitor for recovery (At [facility] 24 UOP was recorded as 9 Lts) Dialysis today, discussed treatment plan with NIKOLAI Gross hematuria- Status post cystoscopy, clot evacuation and fulguration yesterday . Off CBI . Urology recommends maintain Watkins for 1 month and attempt voiding trial.Ct scan mild bilateral hydronephrosis. Proteunuria- nephrotic range- Watkins sample , Uncontrolled DM history Bx not done 2/2 Multiple comorbidities , anticoagulation and antiplatelet agents. Acute hypoxic/hypercapnic respiratory failure requiring BiPAP support- On Bipap CHF- Rt heart cath - Pulm HTN Dry gangrene of the left fourth toe. Will need Amputation, Non Urgent . Discussed with Dr Martinez, planning to hold for now 2/2 LUIS, Non urgent History of COPD History of diabetes mellitus type 2 History of tobacco misuse Labs Labs Laboratory Tests Test 03/16/22 20:25 03/16/22 21:10 03/17/22 01:20 03/17/22 03:00 White Blood Count 14.1 x10^3/uL (4.0-11.0) Red Blood Count 2.68 x10^6/uL (4.30-5.70) Hemoglobin 8.7 g/dL (13.0-17.5) Hematocrit 25.0 % (39.0-53.0) Mean Corpuscular Volume 94 fL (79-100) Mean Corpuscular Hemoglobin 33 pg (25-35) Mean Corpuscular Hemoglobin Concent 35 g/dL (31-37) Red Cell Distribution Width 14.6 % (11.5-14.5) Platelet Count 117 x10^3/uL (140-400) Urine Collection Type Unknown Urine Color (Auto) Red Urine Turbidity Bloody Urine pH (Auto) (<5.0-8.0) Urine Specific [place] (1.000-1.030) Urine Protein (Auto) mg/dL (Negative) Urine Glucose (Auto)(UA) mg/dL (Negative) Urine Ketones (Auto) mg/dL (Negative) Urine Blood (Auto) (Negative) Urine Nitrite (Negative) Urine Bilirubin (Auto) (Negative) Urine Urobilinogen (Auto) mg/dL (Normal) Urine Leukocyte Esterase (Auto) (Negative) Urine RBC Tntc /HPF (0-2) Urine WBC Tntc /HPF (0-4) Urine Squamous Epithelial Cells Few /LPF Urine Bacteria Many /HPF (0-FEW) Urine Mucus Slight /LPF Urine Yeast Present /HPF Sodium Level 134 mmol/L (136-145) Potassium Level 5.0 mmol/L (3.5-5.1) Chloride Level 98 mmol/L (98-107) Carbon Dioxide Level 30 mmol/L (21-32) Anion Gap 6 (6-14) Blood Urea Nitrogen 62 mg/dL (8-26) Creatinine 3.7 mg/dL (0.7-1.3) Estimated GFR (Cockcroft-Gault) 17.1 BUN/Creatinine Ratio 17 (6-20) Glucose Level 182 mg/dL (70-99) Calcium Level 8.2 mg/dL (8.5-10.1) Total Bilirubin 0.7 mg/dL (0.2-1.0) Aspartate Amino Transf (AST/SGOT) 11 U/L (15-37) Alanine Aminotransferase (ALT/SGPT) 17 U/L (16-63) Alkaline Phosphatase 59 U/L (46-116) Troponin I High Sensitivity 23 ng/L (4-75) 23 ng/L (4-75) VF-Dye-W-Type Natriuretic Peptide > 18646 pg/mL (0-124) Total Protein 5.7 g/dL (6.4-8.2) Albumin 2.2 g/dL (3.4-5.0) Albumin/Globulin Ratio 0.6 (1.0-1.7) Prothrombin Time 15.6 SEC (11.7-14.0) Prothromb Time International Ratio 1.3 (0.8-1.1) Activated Partial Thromboplast Time 27 SEC (24-38) SARS-CoV-2 Antigen (Rapid) Negative (NEGATIVE) Test 03/17/22 06:00 White Blood Count 13.2 x10^3/uL (4.0-11.0) Red Blood Count 2.29 x10^6/uL (4.30-5.70) Hemoglobin 7.2 g/dL (13.0-17.5) Hematocrit 21.5 % (39.0-53.0) Mean Corpuscular Volume 94 fL (79-100) Mean Corpuscular Hemoglobin 32 pg (25-35) Mean Corpuscular Hemoglobin Concent 34 g/dL (31-37) Red Cell Distribution Width 14.7 % (11.5-14.5) Platelet Count 93 x10^3/uL (140-400) Neutrophils (%) (Auto) 79 % (31-73) Lymphocytes (%) (Auto) 7 % (24-48) Monocytes (%) (Auto) 13 % (0-9) Eosinophils (%) (Auto) 0 % (0-3) Basophils (%) (Auto) 0 % (0-3) Neutrophils # (Auto) 10.4 x10^3/uL (1.8-7.7) Lymphocytes # (Auto) 0.9 x10^3/uL (1.0-4.8) Monocytes # (Auto) 1.7 x10^3/uL (0.0-1.1) Eosinophils # (Auto) 0.0 x10^3/uL (0.0-0.7) Basophils # (Auto) 0.0 x10^3/uL (0.0-0.2) Sodium Level 136 mmol/L (136-145) Potassium Level 4.6 mmol/L (3.5-5.1) Chloride Level 100 mmol/L (98-107) Carbon Dioxide Level 28 mmol/L (21-32) Anion Gap 8 (6-14) Blood Urea Nitrogen 65 mg/dL (8-26) Creatinine 3.9 mg/dL (0.7-1.3) Estimated GFR (Cockcroft-Gault) 16.1 Glucose Level 145 mg/dL (70-99) Calcium Level 7.8 mg/dL (8.5-10.1) Troponin I High Sensitivity 22 ng/L (4-75) Laboratory Tests Test 03/16/22 20:25 03/16/22 21:10 03/17/22 01:20 03/17/22 03:00 White Blood Count 14.1 x10^3/uL (4.0-11.0) Red Blood Count 2.68 x10^6/uL (4.30-5.70) Hemoglobin 8.7 g/dL (13.0-17.5) Hematocrit 25.0 % (39.0-53.0) Mean Corpuscular Volume 94 fL (79-100) Mean Corpuscular Hemoglobin 33 pg (25-35) Mean Corpuscular Hemoglobin Concent 35 g/dL (31-37) Red Cell Distribution Width 14.6 % (11.5-14.5) Platelet Count 117 x10^3/uL (140-400) Urine Collection Type Unknown Urine Color (Auto) Red Urine Turbidity Bloody Urine pH (Auto) (<5.0-8.0) Urine Specific [place] (1.000-1.030) Urine Protein (Auto) mg/dL (Negative) Urine Glucose (Auto)(UA) mg/dL (Negative) Urine Ketones (Auto) mg/dL (Negative) Urine Blood (Auto) (Negative) Urine Nitrite (Negative) Urine Bilirubin (Auto) (Negative) Urine Urobilinogen (Auto) mg/dL (Normal) Urine Leukocyte Esterase (Auto) (Negative) Urine RBC Tntc /HPF (0-2) Urine WBC Tntc /HPF (0-4) Urine Squamous Epithelial Cells Few /LPF Urine Bacteria Many /HPF (0-FEW) Urine Mucus Slight /LPF Urine Yeast Present /HPF Sodium Level 134 mmol/L (136-145) Potassium Level 5.0 mmol/L (3.5-5.1) Chloride Level 98 mmol/L (98-107) Carbon Dioxide Level 30 mmol/L (21-32) Anion Gap 6 (6-14) Blood Urea Nitrogen 62 mg/dL (8-26) Creatinine 3.7 mg/dL (0.7-1.3) Estimated GFR (Cockcroft-Gault) 17.1 BUN/Creatinine Ratio 17 (6-20) Glucose Level 182 mg/dL (70-99) Calcium Level 8.2 mg/dL (8.5-10.1) Total Bilirubin 0.7 mg/dL (0.2-1.0) Aspartate Amino Transf (AST/SGOT) 11 U/L (15-37) Alanine Aminotransferase (ALT/SGPT) 17 U/L (16-63) Alkaline Phosphatase 59 U/L (46-116) Troponin I High Sensitivity 23 ng/L (4-75) 23 ng/L (4-75) YM-Lxm-P-Type Natriuretic Peptide > 91907 pg/mL (0-124) Total Protein 5.7 g/dL (6.4-8.2) Albumin 2.2 g/dL (3.4-5.0) Albumin/Globulin Ratio 0.6 (1.0-1.7) Prothrombin Time 15.6 SEC (11.7-14.0) Prothromb Time International Ratio 1.3 (0.8-1.1) Activated Partial Thromboplast Time 27 SEC (24-38) SARS-CoV-2 Antigen (Rapid) Negative (NEGATIVE) Test 03/17/22 06:00 White Blood Count 13.2 x10^3/uL (4.0-11.0) Red Blood Count 2.29 x10^6/uL (4.30-5.70) Hemoglobin 7.2 g/dL (13.0-17.5) Hematocrit 21.5 % (39.0-53.0) Mean Corpuscular Volume 94 fL (79-100) Mean Corpuscular Hemoglobin 32 pg (25-35) Mean Corpuscular Hemoglobin Concent 34 g/dL (31-37) Red Cell Distribution Width 14.7 % (11.5-14.5) Platelet Count 93 x10^3/uL (140-400) Neutrophils (%) (Auto) 79 % (31-73) Lymphocytes (%) (Auto) 7 % (24-48) Monocytes (%) (Auto) 13 % (0-9) Eosinophils (%) (Auto) 0 % (0-3) Basophils (%) (Auto) 0 % (0-3) Neutrophils # (Auto) 10.4 x10^3/uL (1.8-7.7) Lymphocytes # (Auto) 0.9 x10^3/uL (1.0-4.8) Monocytes # (Auto) 1.7 x10^3/uL (0.0-1.1) Eosinophils # (Auto) 0.0 x10^3/uL (0.0-0.7) Basophils # (Auto) 0.0 x10^3/uL (0.0-0.2) Sodium Level 136 mmol/L (136-145) Potassium Level 4.6 mmol/L (3.5-5.1) Chloride Level 100 mmol/L (98-107) Carbon Dioxide Level 28 mmol/L (21-32) Anion Gap 8 (6-14) Blood Urea Nitrogen 65 mg/dL (8-26) Creatinine 3.9 mg/dL (0.7-1.3) Estimated GFR (Cockcroft-Gault) 16.1 Glucose Level 145 mg/dL (70-99) Calcium Level 7.8 mg/dL (8.5-10.1) Troponin I High Sensitivity 22 ng/L (4-75) Review All relevant outside records, renal labs, imaging studies, telemetry/EKG's were reviewed. Images Images IMPRESSION: * The urinary bladder is dilated with mild bilateral hydronephrosis. There is a catheter identified but it is located within the urethra and does not extend into the urinary bladder. Would correlate with catheter function given this location and dilatation of the urinary bladder. This could be advanced into the urinary bladder for better function. * Diffuse edema of the soft tissues as well as left greater than right pleural effusion. There is also groundglass opacities at lung bases which could be from edema or infiltrate. There is also consolidation at the left lung base which can be atelectasis or infiltrate. * Bilateral hydrocele is seen as well as severe confluent edema at the scrotal region. * Severe atherosclerotic disease. * Large amount of stool at colon which can be from constipation. * Indeterminate exophytic right renal lesion again suspected. This was better evaluated on recent ultrasoun BLAS ORR MD Mar 17, 2022 12:41
--- NOTE | 2022-03-17 14:50 | NUR ---
SS following for discharge planning. SS reviewed pt chart and discussed with pt RN. Pt is from [facility], ; fax [phone], and is currently on BIPAP at 60%. Discharge orders received and sent to [facility] with clinical. Pt will discharge today and return to [facility] at 2330 via [facility] transport, . SS will continue to follow for discharge planning.
[2022-03-17] MEDS ORDERED: METOPROLOL SUCC 24HR ER 25 MG TAB.ER.24H. PO SCH (15:00)
--- NOTE | 2022-03-17 17:21 | NUR ---
Pt discharged. Report called to [facility]. Transport via [facility]. PIV placed this hospital encounter removed. PICC and Lyons left in place per physician order.
[2022-03-17] MEDS ORDERED: SALMETEROL IH SCH (21:00)
[2022-03-17] MEDS ORDERED: ATORVASTATIN CALCIUM 20 MG TABLET PO SCH (21:00)
[2022-03-17] MEDS ORDERED: SILDENAFIL CITRATE 20 MG TABLET. PO SCH (21:00)
[2022-03-17] MEDS ORDERED: FLUTICASONE IH SCH (21:00)
[2022-03-17] MEDS ORDERED: NON FORMULARY ITEM (Fluticasone/Salmeterol (Advair 500-50 Diskus) 1 PUFF) INH SCH (21:00)
--- NOTE | 2022-03-18 01:06 | CONS ---
DATE OF CONSULTATION: 03/17/2022 ATTENDING PHYSICIAN: Gerardo Washington MD REASON FOR CONSULTATION: The patient is seen in pulmonary consultation at the request of Dr. Washington for [id number] respiratory failure requiring noninvasive ventilation. HISTORY OF PRESENT ILLNESS: The patient is a 57-year-old that was at a long-term acute care. He has comorbidities of COPD, chronic cor pulmonale, obesity hypoventilation syndrome, severe pulmonary hypertension. He also has a history of hypertension, hyperlipidemia, AFib, on Eliquis, diastolic heart failure. He is currently on hemodialysis with end-stage renal disease. He was transferred from [facility] for gross hematuria and urinary retention. He is having some gross hematuria for the past 2 days. The patient was evaluated by Urology. Underwent a cystoscopy with clot evacuation and Lyons insertion. He is currently in the intensive care unit. His blood pressure is low at 82/54. He is receiving some IV fluids. He is awake. He is not complaining of any chest pain or pressure. He is not short of breath. He is on Trilogy noninvasive ventilation with AVAPS settings. PAST MEDICAL HISTORY: As indicated above, chronic respiratory failure, on 6 liters of oxygen, chronic cor pulmonale. He is on noninvasive ventilation at home. He has a history of severe pulmonary hypertension, end-stage renal disease, on hemodialysis, type 2 diabetes, COPD, obesity, CHF. PAST SURGICAL HISTORY: As above. REVIEW OF SYSTEMS: Unobtainable secondary to the patient's condition. CURRENT MEDICATIONS: List was reviewed. ALLERGIES: No known drug allergies. SOCIAL HISTORY: He is currently not smoking. FAMILY HISTORY: Noncontributory. PHYSICAL EXAMINATION: VITAL SIGNS: At times, his blood pressure is low. He is currently on noninvasive ventilation. Heart rate is 94, O2 saturation greater than 92%. HEENT: Eyes: The sclerae were nonicteric. NECK: Jugular venous distention could not be assessed secondary to body habitus. CHEST: Full expansion. LUNGS: Adequate flow with no wheezes. CARDIOVASCULAR: Distant heart sounds. ABDOMEN: Obese. EXTREMITIES: No clubbing, cyanosis. Minimal edema. NEUROLOGIC: The patient was awake, alert, following commands. A detailed neuro exam was not performed. LABORATORY DATA: SARS-CoV-2 testing was negative. White count was elevated. Hemoglobin and hematocrit chronically low. Electrolytes were noted. BUN and creatinine were elevated. BNP was elevated. INR was 1.3. UA was noted. DIAGNOSTIC DATA: CT abdomen and pelvis revealed large revealed urinary bladder dilated. There are bilateral effusions, left greater than right, ground glass opacities in the bases of the lungs compatible with edema also consolidation in left base, possible pneumonia. IMPRESSION: 1. Evozw-ev-inxsfzc hypercapnic hypoxemic respiratory failure. 2. Urinary retention with hematuria. 3. Bsenp-ga-dgbeslb cor pulmonale. 4. Abnormal CT revealing bilateral infiltrates compatible with congestive heart failure, possible pneumonia. 5. Chronic obstructive pulmonary disease. 6. Type 2 diabetes. 7. End-stage renal disease. 8. Acute blood loss anemia. 9. Chronic atrial fibrillation. 10. Jmvax-no-uyzejmx diastolic heart failure. 11. Status post cystoscopy with clot evacuation and fulguration. PLAN: 1. Continue current support with noninvasive ventilation. 2. Follow Urology input. 3. Monitor hemoglobin and hematocrit, transfuse if hemoglobin drops below 7. 4. Continue empiric antibiotics. 5. Hemodialysis per Nephrology. 6. Follow Cardiology input. I do appreciate the privilege in sharing in the patient's care. Total cumulative critical care time of 45 minutes. FADI/LAN/SANDRA DR: Tammy TID: [id number]
--- NOTE | 2022-03-18 03:41 | PN ---
DATE: 03/17/2022 SUBJECTIVE: The patient was transferred yesterday from [facility] for urine retention and gross hematuria who has changed his catheter multiple times, used continuous bladder irrigation, but he continued to have hematuria and urine retention and before he was transferred here he was retaining more than 1000 mL of urine, was having severe pain. He had a CT scan, which confirmed our impression at the Emergency Room and was admitted to the ICU to continue ____. We did consult the urologist. The patient was taken to OR and underwent cystoscopy and evacuation of all the blood and urine. PHYSICAL EXAMINATION: GENERAL: When I saw him this morning, the patient was resting flat, comfortably in bed, in no apparent distress. He was pale, but no jaundice, cyanosis, no lymphadenopathy, no thyromegaly, no jugular venous distention. No lower limb edema. VITAL SIGNS: Heart rate was 94, blood pressure was low at 91/57, temperature was 97.5, respiratory rate was 12, oxygen saturation was 100% on BiPAP machine. HEAD, EYES, EARS, NOSE, AND THROAT: Normocephalic, atraumatic. NECK: Supple. HEART: Showed normal first and second heart sounds. No gallop, rub or murmur. CHEST: Shows central trachea, equally reduced expansion, reduced air entry, vesicular breath sounds. No crepitation or rhonchi anteriorly. ABDOMEN: Distended, soft, nontender. NEUROLOGIC: He was awake, alert, responding appropriately. All his cranial nerves are intact. He moves extremities without difficulty. He has an indwelling Lyons catheter. We did scan this morning, it was only at 97 mL of urine. LABORATORY DATA: His lab work this morning showed a white cell count of 13,200, hemoglobin 7.2, hematocrit 21.5, MCV 94 and platelet count of 93,000 with normal manual differential. His chemistry showed a serum sodium 136, potassium 4.6, chloride 100, bicarbonate 28, anion gap of 8, BUN 65, creatinine 3.4. Estimated GFR was 16 mL per minute. His glucose 145, calcium was 7.8. His beta natriuretic peptide was 35,000 and 3 sets of troponin-I high sensitivity were 23, 23, and 22. ASSESSMENT: In summary, urethral stricture with urine retention, gross hematuria, resolved. The patient underwent cystoscopy and evacuation of the blood and urine. He now has 22-Macanese 3-way catheter in place. He has obviously multitude of medical problems including: A. Acute renal failure for which he is on hemodialysis, I believe on Wednesday, Wednesday and Wednesday. The patient has chronic obstructive pulmonary disease, chronic hypoxic respiratory failure, morbid obesity and obstructive sleep apnea, obesity hypoventilation syndrome and severe pulmonary hypertension. He has coronary artery disease, gastroesophageal reflux disease, type 2 diabetes mellitus, has infected left second toe with a growth of Pseudomonas aeruginosa, Enterococcus faecalis, methicillin-resistant Staphylococcus aureus, for which he was on IV antibiotic. PLAN: My plan is to consult the rating clerk and I have also explained to the nursing staff and the respiratory therapist that usually attempts to eat with a mask on but he has been also using Vapotherm at 40 liters and FiO2 of 60%. Once he was dialyzed and remains stable, we will discharge him back to [facility]. No other issues arise. CLAUDIA/MATTEO DR: Antonio TID: [id number]
[2022-03-18] MEDS ORDERED: LACTOBACILLUS RHAMNOSUS GG 1 CAPSULE. PO SCH (09:00)
== END 2022-03-17 17:20 | DRG 291 ==
LOC: ER 20:15 → 1 WEST ICU 22:09
PROVIDERS: ADMIT Internal Medicine; ATTEND Internal Medicine
PROC: 5A09357 Assistance with Respiratory Ventilation, Less than 24 Consecutive Hours, Continuous Positive Airway Pressure (ICD-10-PCS; 2022-03-16)
PROC: 0TCD8ZZ Extirpation of Matter from Urethra, Via Natural or Artificial Opening Endoscopic (ICD-10-PCS; 2022-03-17)
PROC: 5A1D70Z Performance of Urinary Filtration, Intermittent, Less than 6 Hours Per Day (ICD-10-PCS; principal; 2022-03-17 04:30)
DX: I13.2 Hypertensive heart and chronic kidney disease with heart failure and with stage 5 chronic kidney disease, or end stage renal disease (principal); I50.43 Acute on chronic combined systolic (congestive) and diastolic (congestive) heart failure; J96.21 Acute and chronic respiratory failure with hypoxia; J96.22 Acute and chronic respiratory failure with hypercapnia; N18.6 End stage renal disease; D62 Acute posthemorrhagic anemia; E11.52 Type 2 diabetes mellitus with diabetic peripheral angiopathy with gangrene; E66.2 Morbid (severe) obesity with alveolar hypoventilation; I48.19 Other persistent atrial fibrillation; I48.92 Unspecified atrial flutter; J98.11 Atelectasis; N13.30 Unspecified hydronephrosis; N17.9 Acute kidney failure, unspecified; S37.30XA Unspecified injury of urethra, initial encounter; I42.8 Other cardiomyopathies; E11.22 Type 2 diabetes mellitus with diabetic chronic kidney disease; E78.5 Hyperlipidemia, unspecified; I25.10 Atherosclerotic heart disease of native coronary artery without angina pectoris; I27.29 Other secondary pulmonary hypertension; I27.81 Cor pulmonale (chronic); J44.9 Chronic obstructive pulmonary disease, unspecified; K21.9 Gastro-esophageal reflux disease without esophagitis; K59.00 Constipation, unspecified; N35.919 Unspecified urethral stricture, male, unspecified site; N43.3 Hydrocele, unspecified; R31.0 Gross hematuria; Z79.01 Long term (current) use of anticoagulants; Z82.49 Family history of ischemic heart disease and other diseases of the circulatory system; Z83.3 Family history of diabetes mellitus; Z87.891 Personal history of nicotine dependence; Z99.2 Dependence on renal dialysis; Z99.81 Dependence on supplemental oxygen; E66.9 Obesity, unspecified; B96.5 Pseudomonas (aeruginosa) (mallei) (pseudomallei) as the cause of diseases classified elsewhere; B95.2 Enterococcus as the cause of diseases classified elsewhere; Z86.14 Personal history of Methicillin resistant Staphylococcus aureus infection; Z20.822 Contact with and (suspected) exposure to COVID-19; Z68.38 Body mass index [BMI] 38.0-38.9, adult
CPT/HCPCS: 36415; 51702; 51798; 74176; 80048; 80053; 81001; 83880; 84484; 85025; 85027; 85610; 85730; 87086; 87106; 87340; 87426; 93005; 94640; 94660; 94760; 96365; 96375; A4322; A4346; A4911; A4930; C1769; J0330; J0690; J2270; J2370; J2405; J2704; J3010; J3490; J7512; 99291-25; G0378; J7626